=== PATIENT | male | born 1950 | race Two or more races ===

== ENCOUNTER → 2017-03-07 | Outpatient (REF) | payer OTHER, BC ==
[2017-03-07 18:14] LABS: ALBUMIN 4.2 GM/DL (3.2-5.2); ALBUMIN/GLOBULIN RATIO 1.2 (1.00-1.93); BILIRUBIN,TOTAL 0.5 MG/DL (0.2-1.0); CALCIUM LEVEL 8.9 MG/DL (8.8-10.2); CREATININE FOR GFR 1.81 MG/DL (0.70-1.30); GLOMERULAR FILTRATION RATE 40.4 (>49); POTASSIUM SERUM 4.6 MEQ/L (3.5-5.1); TOTAL PROTEIN 7.7 GM/DL (6.4-8.2)
[2017-03-07 18:17] LABS: BASO # 0.1 K/mm3 (0.0-0.2); BASO % 0.9 % (0.0-1.0); EOS # 0.3 K/mm3 (0.0-0.50); LARGE UNSTAINED CELL # 0.1 K/mm3 (0.0-0.4); LARGE UNSTAINED CELL % 1.5 % (0.0-4.0); LYMPH # 1.5 K/mm3 (1.5-4.5); LYMPH % 20.8 % (24.0-44.0); MEAN CORPUSCULAR HEMOGLOBIN 30.8 pg (27.0-33.0); MEAN CORPUSCULAR HGB CONC 32.8 g/dl (32.0-36.5); MEAN CORPUSCULAR VOLUME 93.9 fl (80.0-96.0); MONO # 0.5 K/mm3 (0.0-0.8); NEUTROPHILS # 4.6 K/mm3 (1.8-7.7); NEUTROPHILS % 65.8 % (36.0-66.0); PLATELET COUNT, AUTOMATED 276 k/mm3 (150-450); RED CELL DISTRIBUTION WIDTH 12.8 % (11.5-14.5)
== END ==
LOC: M LAB REF 16:43
PROVIDERS: ATTEND Family Medicine
DX: M54.6 Pain in thoracic spine (principal); E11.29 Type 2 diabetes mellitus with other diabetic kidney complication; M25.50 Pain in unspecified joint

== ENCOUNTER → 2018-03-25 | Outpatient (CLI) | payer OTHER, BC ==
[2018-03-25 20:23] LABS: BASO # 0.1 10^3/uL (0.0-0.2); BASO % 0.3 % (0.0-1.0); EOS % 0.2 % (0.0-3.0); HEMATOCRIT 36.5 % (42.0-52.0); LYMPH % 5.4 % (24.0-44.0); MEAN CORPUSCULAR HEMOGLOBIN 30.6 pg (27.0-33.0); MEAN CORPUSCULAR HGB CONC 32.9 g/dl (32.0-36.5); MEAN CORPUSCULAR VOLUME 93.1 fl (80.0-96.0); MONO # 1.3 10^3/uL (0.0-0.8); MONO % 6.8 % (0.0-5.0); NEUTROPHILS # 16.2 10^3/uL (1.8-7.7); NEUTROPHILS % 85.3 % (36.0-66.0); PLATELET COUNT, AUTOMATED 257 10^3/uL (150-450); RED BLOOD COUNT 3.92 10^6/uL (4.30-6.10); RED CELL DISTRIBUTION WIDTH 13.1 % (11.5-14.5)
[2018-03-25 20:47] LABS: ALBUMIN 3.4 GM/DL (3.2-5.2); ALBUMIN/GLOBULIN RATIO 0.94 (1.00-1.93); ALKALINE PHOSPHATASE 80 U/L (45-117); ALT/SGPT 19 U/L (12-78); ANION GAP 12 MEQ/L (8-16); AST/SGOT 15 U/L (7-37); BILIRUBIN,TOTAL 0.8 MG/DL (0.2-1.0); BLOOD UREA NITROGEN 48 MG/DL (7-18); CALCIUM LEVEL 8.3 MG/DL (8.8-10.2); CARBON DIOXIDE LEVEL 21 MEQ/L (21-32); CHLORIDE LEVEL 99 MEQ/L (98-107); CREATININE FOR GFR 2.29 MG/DL (0.70-1.30); GLOMERULAR FILTRATION RATE 30.7 (>49); GLUCOSE, FASTING 148 MG/DL (70-100); POTASSIUM SERUM 4.8 MEQ/L (3.5-5.1); SODIUM LEVEL 132 MEQ/L (136-145)
== END ==
LOC: M WUC 18:24
DX: R50.9 Fever, unspecified (principal)
CPT/HCPCS: 80053

== ENCOUNTER → 2018-03-26 | Outpatient (CLI) | payer OTHER, BC ==
[2018-03-26 13:21] LABS: BASO % 0.2 % (0.0-1.0); HEMATOCRIT 38.9 % (42.0-52.0); HEMOGLOBIN 12.9 g/dl (13.5-17.5); IMMATURE GRANULOCYTE % 0.7 % (0-3.0); LYMPH # 0.4 10^3/uL (1.5-4.5); LYMPH % 2.5 % (24.0-44.0); MEAN CORPUSCULAR HEMOGLOBIN 30.9 pg (27.0-33.0); MEAN CORPUSCULAR HGB CONC 33.2 g/dl (32.0-36.5); MEAN CORPUSCULAR VOLUME 93.3 fl (80.0-96.0); MONO # 0.6 10^3/uL (0.0-0.8); MONO % 4.2 % (0.0-5.0); NEUTROPHILS # 13.1 10^3/uL (1.8-7.7); NEUTROPHILS % 92.4 % (36.0-66.0); PLATELET COUNT, AUTOMATED 268 10^3/uL (150-450); RED BLOOD COUNT 4.17 10^6/uL (4.30-6.10); RED CELL DISTRIBUTION WIDTH 13.1 % (11.5-14.5); WHITE BLOOD COUNT 14.1 10^3/uL (4.0-10.0)
[2018-03-26 14:26] LABS: ALBUMIN/GLOBULIN RATIO 0.73 (1.00-1.93); ALKALINE PHOSPHATASE 79 U/L (45-117); ALT/SGPT 23 U/L (12-78); ANION GAP 13 MEQ/L (8-16); AST/SGOT 10 U/L (7-37); BILIRUBIN,TOTAL 0.4 MG/DL (0.2-1.0); BLOOD UREA NITROGEN 50 MG/DL (7-18); CALCIUM LEVEL 8.6 MG/DL (8.8-10.2); CARBON DIOXIDE LEVEL 19 MEQ/L (21-32); CHLORIDE LEVEL 100 MEQ/L (98-107); CREATININE FOR GFR 2.09 MG/DL (0.70-1.30); GLOMERULAR FILTRATION RATE 34.1 (>49); SODIUM LEVEL 132 MEQ/L (136-145); TOTAL PROTEIN 7.1 GM/DL (6.4-8.2)
[2018-03-26 14:29] LABS: GLUCOSE, FASTING 416 MG/DL (70-100)
[2018-03-26 14:33] LABS: POTASSIUM SERUM 5.6 MEQ/L (3.5-5.1)
== END ==
LOC: M WUC 11:36
DX: J18.9 Pneumonia, unspecified organism (principal)
CPT/HCPCS: 80053

== ENCOUNTER → 2018-12-14 | Outpatient (REF) | payer MEDICARE, OTHER ==
[~2018-12-14] MED LIST: ASPI81TA85 PO; GLIP10TA6 PO; LINZ145C; LISI10TA4 PO; METF-839 PO; SERT-138 PO; TRUL0.5I
[2018-12-14 19:08] LABS: CALCIUM LEVEL 9.1 MG/DL (8.8-10.2); CREATININE FOR GFR 1.87 MG/DL (0.70-1.30); GLOMERULAR FILTRATION RATE 38.6 (>49); POTASSIUM SERUM 4.6 MEQ/L (3.5-5.1)
== END ==
LOC: M LAB REF 17:03
PROVIDERS: ATTEND Family Medicine
DX: E11.29 Type 2 diabetes mellitus with other diabetic kidney complication (principal)

== ENCOUNTER 2019-03-18 08:52 | Day surgery (SDC) | payer MEDICARE, OTHER ==
[~2019-03-18] VITALS: Ht 182.9 cm; Wt 118.8 kg
[~2019-03-18 08:52] MED LIST changes: +LANTINJ4 SC; +LIDOCAINE 2% INJ 100 MG/5 ML SDV (FOR ANES.) As Ordered ONE; -LINZ145C; +LINZ145C PO; +PROPOFOL 200 MG/20 ML VIAL As Ordered ONE; -TRUL0.5I; +TRUL0.5I INJ
[2019-03-18] MEDS: NS 1,000 ML IV ONE (09:00)
[2019-03-18] MEDS ORDERED: PROPOFOL 200 MG/20 ML VIAL As Ordered ONE (09:54)
--- NOTE | 2019-03-18 10:02 | ROOR ---
Patient Name: Arjun Fong Procedure Date: 03/18/2019 9:45 AM Date of : 1950 Age: 68 Room: [facility] Gender: Male Note Status: Finalized Procedure: Colonoscopy Indications: High risk colon cancer surveillance: Personal history of colonic polyps Providers: Fly Rose Jr, MD Referring MD: Colelen Huang DO Requesting Provider: Medicines: Propofol per Anesthesia Complications: No immediate complications. Procedure: Pre-Anesthesia Assessment: - Prior to the procedure, a History and Physical was performed, and patient medications and allergies were reviewed. The patient is competent. The risks and benefits of the procedure and the sedation options and risks were discussed with the patient. All questions were answered and informed consent was obtained. Patient identification and proposed procedure were verified by the physician and the nurse in the pre-procedure area and in the procedure room. Mental Status Examination: alert and oriented. Airway Examination: normal oropharyngeal airway and neck mobility. Respiratory Examination: clear to auscultation. CV Examination: normal. ASA Grade Assessment: II - A patient with mild systemic disease. After reviewing the risks and benefits, the patient was deemed in satisfactory condition to undergo the procedure. The anesthesia plan was to use moderate sedation / analgesia (conscious sedation). Immediately prior to administration of medications, the patient was re-assessed for adequacy to receive sedatives. The heart rate, respiratory rate, oxygen saturations, blood pressure, adequacy of pulmonary ventilation, and response to care were monitored throughout the procedure. The physical status of the patient was re-assessed after the procedure. The Colonoscope was introduced through the anus and advanced to the cecum, identified by appendiceal orifice and ileocecal valve. The colonoscopy was performed without difficulty. The patient tolerated the procedure well. The quality of the bowel preparation was adequate. Findings: The rectum, recto-sigmoid colon, sigmoid colon, descending colon, transverse colon, ascending colon, cecum, appendiceal orifice and ileocecal valve appeared normal. Impression: - The rectum, recto-sigmoid colon, sigmoid colon, descending colon, transverse colon, ascending colon, cecum, appendiceal orifice and ileocecal valve are normal. - No specimens collected. Recommendation: - Discharge patient to home (ambulatory). - Repeat colonoscopy in 10 years for screening purposes. Fly Rose MD Fly Rose Jr, MD 03/18/2019 10:02:07 AM Electronically signed by Fly Rose Jr, MD Number of Addenda: 0 Note Initiated On: 03/18/2019 9:45 AM Estimated Blood Loss: Estimated blood loss: none.
[2019-03-18 10:06] VITALS: BP 111/67
== END 2019-03-18 10:35 | disposition home or self-care (01) ==
LOC: M OPP 08:52
PROVIDERS: ATTEND Surgery
DX: Z86.010 Personal history of colon polyps (principal); Z79.2 Long term (current) use of antibiotics; Z79.4 Long term (current) use of insulin; Z79.899 Other long term (current) drug therapy

== ENCOUNTER → 2019-10-25 | Outpatient (REF) | payer OTHER, MEDICARE ==
[~2019-10-25] MED LIST changes: -LIDOCAINE 2% INJ 100 MG/5 ML SDV (FOR ANES.) As Ordered ONE; -PROPOFOL 200 MG/20 ML VIAL As Ordered ONE
[2019-10-25 16:43] LABS: BASO % 0.5 % (0.0-1.0); EOS # 0.2 10^3/uL (0.0-0.5); EOS % 3.7 % (0.0-3.0); HEMATOCRIT 43.6 % (42.0-52.0); HEMOGLOBIN 14.3 g/dl (13.5-17.5); LYMPH # 1.2 10^3/uL (1.5-5.0); MEAN CORPUSCULAR HEMOGLOBIN 30.5 pg (27.0-33.0); MEAN CORPUSCULAR HGB CONC 32.8 g/dl (32.0-36.5); MONO # 0.5 10^3/uL (0.0-0.8); NEUTROPHILS % 67.5 % (36.0-66.0); PLATELET COUNT, AUTOMATED 287 10^3/uL (150-450); RED BLOOD COUNT 4.69 10^6/uL (4.30-6.10); WHITE BLOOD COUNT 5.9 10^3/uL (4.0-10.0)
[2019-10-25 17:17] LABS: ALBUMIN 4.2 GM/DL (3.2-5.2); BILIRUBIN,TOTAL 0.5 MG/DL (0.2-1.0); CALCIUM LEVEL 9.3 MG/DL (8.8-10.2); CHOLESTEROL RISK RATIO 5.217 (<5); CREATININE FOR GFR 1.81 MG/DL (0.70-1.30); TOTAL PROTEIN 7.8 GM/DL (6.4-8.2)
== END ==
LOC: M LAB REF 16:13
PROVIDERS: ATTEND Family Medicine
DX: N18.2 Chronic kidney disease, stage 2 (mild) (principal); E11.29 Type 2 diabetes mellitus with other diabetic kidney complication; E78.49 Other hyperlipidemia

== ENCOUNTER → 2020-03-31 | Outpatient (REF) | payer MEDICARE, OTHER ==
[~2020-03-31] MED LIST changes: -ASPI81TA85 PO; +ASPI81TA86 PO
[2020-04-29 02:10] LABS: BASO % 0.6 % (0.0-1.0); EOS # 0.2 10^3/uL (0.0-0.5); EOS % 3.1 % (0.0-3.0); HEMATOCRIT 44.1 % (42.0-52.0); HEMOGLOBIN 14.2 g/dl (13.5-17.5); LYMPH # 1.2 10^3/uL (1.5-5.0); LYMPH % 20.1 % (24.0-44.0); MEAN CORPUSCULAR HEMOGLOBIN 30.4 pg (27.0-33.0); MEAN CORPUSCULAR HGB CONC 32.2 g/dl (32.0-36.5); MEAN CORPUSCULAR VOLUME 94.4 fl (80.0-96.0); MONO # 0.5 10^3/uL (0.0-0.8); MONO % 7.8 % (0.0-5.0); NEUTROPHILS # 4.2 10^3/uL (1.5-8.5); NEUTROPHILS % 68.1 % (36.0-66.0); PLATELET COUNT, AUTOMATED 292 10^3/uL (150-450); RED BLOOD COUNT 4.67 10^6/uL (4.30-6.10); WHITE BLOOD COUNT 6.2 10^3/uL (4.0-10.0)
[2020-05-18 13:15] LABS: HEMOGLOBIN A1c 9.2 %
[2020-05-18 13:16] LABS: ALBUMIN 4.4 GM/DL (3.2-5.2); BILIRUBIN,TOTAL 0.5 MG/DL (0.2-1.0); CALCIUM LEVEL 9.1 MG/DL (8.8-10.2); CREATININE FOR GFR 1.92 MG/DL (0.70-1.30); FREE T4 0.96 NG/DL (0.76-1.46); GLOMERULAR FILTRATION RATE 37.4 (>49); POTASSIUM SERUM 5.6 MEQ/L (3.5-5.1); THYROID STIMULATING HORMONE 2.27 uIU/ML (0.358-3.740); TOTAL PROTEIN 7.7 GM/DL (6.4-8.2)
== END ==
LOC: M LABWUC 10:33
PROVIDERS: ATTEND Physician Assistant
DX: M79.10 Myalgia, unspecified site (principal); Z79.4 Long term (current) use of insulin

== ENCOUNTER 2020-08-08 22:53 | Inpatient (IN) | payer MEDICARE, OTHER ==
[~2020-08-08] VITALS: Ht 182.9 cm; Wt 119.0 kg
[2020-08-08] MEDS ORDERED: ATOR1TAB19 PO (23:15)
[2020-08-09] MEDS ORDERED: COMBIVENT RESPIMAT 100-20MCG INHALER 4GM INH ONE
[2020-08-09] MEDS ORDERED: PANTOPRAZOLE 40MG VIAL (C9113 PER 1) IV ONE
[2020-08-09] MEDS ORDERED: GI COCKTAIL 50ML BTL(HYOSCYAMINE/MAALOX/LIDOCAINE VISCOUS)(1:3:1) PO ONE
[2020-08-09 00:05] LABS: BASO % 0.1 % (0.0-1.0); EOS % 0.1 % (0.0-3.0); HEMATOCRIT 45.5 % (42.0-52.0); HEMOGLOBIN 15.1 g/dl (13.5-17.5); LYMPH # 1.3 10^3/uL (1.5-5.0); LYMPH % 13.7 % (24.0-44.0); MEAN CORPUSCULAR HEMOGLOBIN 30.9 pg (27.0-33.0); MEAN CORPUSCULAR HGB CONC 33.2 g/dl (32.0-36.5); MEAN CORPUSCULAR VOLUME 93.2 fl (80.0-96.0); MONO # 0.2 10^3/uL (0.0-0.8); MONO % 1.8 % (0.0-5.0); NEUTROPHILS # 8.1 10^3/uL (1.5-8.5); NEUTROPHILS % 83.3 % (36.0-66.0); PLATELET COUNT, AUTOMATED 299 10^3/uL (150-450); RED BLOOD COUNT 4.88 10^6/uL (4.30-6.10); WHITE BLOOD COUNT 9.7 10^3/uL (4.0-10.0)
[2020-08-09 00:12] LABS: PROTHROMBIN TIME 13.4 SECONDS (12.5-14.3)
[2020-08-09 00:14] LABS: D-DIMER QUANT 1094.51 ng/ml (<500)
[2020-08-09 00:37] LABS: ALBUMIN 3.9 GM/DL (3.2-5.2); ALT/SGPT 255 U/L (12-78); BILIRUBIN,TOTAL 1.5 MG/DL (0.2-1.0); BLOOD UREA NITROGEN 49 MG/DL (7-18); CALCIUM LEVEL 9.6 MG/DL (8.8-10.2); CARBON DIOXIDE LEVEL 29 MEQ/L (21-32); CHLORIDE LEVEL 101 MEQ/L (98-107); CK-MB VALUE MASS 7.4 NG/ML (<3.6); CPK CREATINE PHOSPHOKINASE 194 U/L (39-308); CREATININE FOR GFR 2.15 MG/DL (0.70-1.30); GLOMERULAR FILTRATION RATE 32.7 (>49); GLUCOSE, FASTING 289 MG/DL (70-100); MB/CK RELATIVE INDEX 3.81 (< OR =4); NT-PRO BNP 121 PG/ML (<125); POTASSIUM SERUM 4.6 MEQ/L (3.5-5.1); SODIUM LEVEL 136 MEQ/L (136-145); TOTAL PROTEIN 7.3 GM/DL (6.4-8.2); TROPONIN I < 0.02 NG/ML (< 0.10)
[2020-08-09] MEDS ORDERED: MORPHINE 4 MG/ML 1ML VIAL/SYRINGE (J2270) IV ONE (01:00)
[2020-08-09] MEDS ORDERED: ONDANSETRON 4MG/2ML VIAL IV ONE (01:15)
[2020-08-09 01:23] LABS: LIPASE 12564 U/L (73-393)
--- NOTE | 2020-08-09 02:33 | REPVR ---
PROCEDURE INFORMATION: Exam: CT Chest Without Contrast; Diagnostic Exam date and time: 08/09/2020 1:08 AM Age: 70 years old Clinical indication: Shortness of breath; Additional info: SOB TECHNIQUE: Imaging protocol: Diagnostic computed tomography of the chest without contrast. Radiation optimization: All CT scans at this facility use at least one of these dose optimization techniques: automated exposure control; mA and/or kV adjustment per patient size (includes targeted exams where dose is matched to clinical indication); or iterative reconstruction. COMPARISON: CR CHEST 2 VIEW 03/25/2018 6:32 PM FINDINGS: Lungs: Bilateral dependent and linear atelectasis. Calcified granulomata in the right lower and middle lobes. Pleural space: Unremarkable. No pneumothorax. No pleural effusion. Heart: Coarsely calcified aortic valve leaflets. Atherosclerotic disease of coronary arteries. Mediastinal space: Small hiatal hernia. Aorta: Atherosclerotic disease of the thoracic aorta. Lymph nodes: Unremarkable. No enlarged lymph nodes. Bones/joints: Multilevel degenerative disease of the thoracic spine. Osteopenia. Mild scoliosis. IMPRESSION: Evidence of prior granulomatous disease. Hiatal hernia. Electronically signed by: Fermín Vargas On 08/09/2020 02:33:05 AM
--- NOTE | 2020-08-09 02:38 | REPVR ---
PROCEDURE INFORMATION: Exam: CT Abdomen And Pelvis Without Contrast Exam date and time: 08/09/2020 1:08 AM Age: 70 years old Clinical indication: Abdominal pain; Epigastric; Additional info: Upper abd pain elev lfts TECHNIQUE: Imaging protocol: Computed tomography of the abdomen and pelvis without contrast. Radiation optimization: All CT scans at this facility use at least one of these dose optimization techniques: automated exposure control; mA and/or kV adjustment per patient size (includes targeted exams where dose is matched to clinical indication); or iterative reconstruction. COMPARISON: No relevant prior studies available. FINDINGS: Liver: Hepatomegaly. Geographic steatosis predominately involving right hepatic lobe. Gallbladder and bile ducts: Cholelithiasis. No specific evidence of acute cholecystitis. Pancreas: Inflammatory changes involving pancreatic head and neck with stranding of the adjacent fat consistent with acute pancreatitis. Spleen: Normal. No splenomegaly. Adrenal glands: Normal. No mass. Kidneys and ureters: Simple exophytic right renal cyst. Stomach and bowel: Diverticulosis of colon. No evidence of acute diverticulitis. Mild inflammatory changes involving epiploic appendage in the left lower quadrant. Correlate for point tenderness. Appendix: No evidence of appendicitis. Intraperitoneal space: Unremarkable. No free air. No significant fluid collection. Vasculature: Unremarkable. No abdominal aortic aneurysm. Lymph nodes: Unremarkable. No enlarged lymph nodes. Urinary bladder: Unremarkable as visualized. Reproductive: Unremarkable as visualized. Bones/joints: Severe degenerative changes in the bilateral sacroiliac joints. Multilevel degenerative disease facet hypertrophy of the lumbar spine. Chronic appearing fracture deformity L1. Soft tissues: Fat containing left inguinal hernia. IMPRESSION: Acute pancreatitis. Cholelithiasis. No specific evidence of acute cholecystitis. Hepatomegaly. Geographic steatosis predominately involving right hepatic lobe. Diverticulosis of colon. No evidence of acute diverticulitis. Mild inflammatory changes involving epiploic appendage in the left lower quadrant. Correlate for point tenderness. COMMENTS: Consistent with the [employer]'s Incidental Findings Committee white paper (J Am Princess Radiol 2018): Any incidental renal lesion less than 1 cm or classified as too small to characterize, or any incidental cystic renal lesion characterized as simple-appearing, is likely benign. No follow-up imaging is recommended for these lesions per consensus recommendations based on imaging criteria. Electronically signed by: Fermín Vargas On 08/09/2020 02:37:39 AM
[2020-08-09] MEDS ORDERED: TRUL0.5I SC (03:02)
[2020-08-09] MEDS ORDERED: METF-839 PO (03:02)
[2020-08-09] MEDS ORDERED: ATOR1TAB19 PO (03:02)
[2020-08-09] MEDS ORDERED: ECOT81TA5 PO (03:02)
[2020-08-09] MEDS ORDERED: NS 1,000 ML IV SCH (03:10)
[2020-08-09] MEDS ORDERED: DEXTROSE 50% 50 ML SYRINGE IV PRN (04:30)
[2020-08-09] MEDS ORDERED: ONDANSETRON 4MG/2ML VIAL IV PRN (04:30)
[2020-08-09] MEDS ORDERED: GLUCOSE 4GM CHEW TABLET PO PRN (04:30)
[2020-08-09] MEDS ORDERED: GLUCAGON INJ 1MG VIAL SC PRN (04:30)
[2020-08-09 04:56] VITALS: BP 149/75
[2020-08-09] MEDS: NS 1,000 ML IV SCH ×5 (05:17→23:22)
--- NOTE | 2020-08-09 05:38 | HPEPDOC ---
[facility] Medical History & Physical Date of Admission Aug 09, 2020 Date of Service: Aug 09, 2020 Primary Care Physician: Colleen Huang Attending Physician: Souleymane Cordova MD History and Physical CHIEF COMPLAINT: shortness of breath, abdominal pain HISTORY OF PRESENT ILLNESS: Arjun Fong is a 70 YO M with history of diabetes type 2, hyperlipidemia, hypertension who presents to the ED this evening with several hours shortness of breath and abdominal pain. The patient reports his pain had sudden onset around 1800 after eating pizza from a restaurant. He states it feels as though he has "really bad acid reflux." He states he is unable to take deep breaths, but denies any coughing or dyspnea on exertion. One week ago, he started having abdominal discomfort and nausea/vomi ting after eating out at a restaurant. Initially the pain resolved but this evening it has returned and is more severe. He denies any recent fevers, chills, diarrhea. He has had no recent travel and no sick contacts. PAST MEDICAL HISTORY: 1. T2DM 2. HLD 3. DJD spine 4. Anxiety disorder 5. HTN PAST SURGICAL HISTORY: 1. R foot surgery 2. Nasal septoplasty 3. Back surgery 4. Umbilical hernia repair SOCIAL HISTORY: Former smoker, quit >10 years ago Denies EtOH Former heavy marijuana smoker, denies any current use FAMILY HISTORY: Reviewed and noncontributory ALLERGIES: Please see below. REVIEW OF SYSTEMS: Constitutional: No Weight Change, No Fever, No Chills, No Night Sweats, No Fatigue, No Malaise ENT/Mouth: No Hearing Changes, No Ear Pain, No Nasal Congestion, No Sinus Pain, No Hoarseness, No sore throat, No Rhinorrhea, No Swallowing Difficulty Eyes: No Eye Pain, No Swelling, No Redness, No Foreign Body, No Discharge, No Vision Changes Cardiovascular: No Chest Pain, No SOB, No PND, No Dyspnea on Exertion, No Orthopnea, No Claudication, No Edema, No Palpitations Respiratory: Reports difficulty taking deep breaths, no dyspnea Gastrointestinal: Reports nausea, vomiting, severe epigastric abdominal pain 1 week Genitourinary: No Dysuria Musculoskeletal: No Arthralgias, No Myalgias, No Joint Swelling, No Joint Stiffness, No Back Pain, No Neck Pain Skin: No Skin Lesions Neuro: No Weakness, No Numbness, No Paresthesias, No Loss of Consciousness, No Syncope, No Dizziness, No Headache Psych: No Anxiety/Panic, No Depression, No Insomnia, No Personality Changes, No Delusions Heme/Lymph: No Bruising, No Bleeding, No Transfusions History, No Lymphadenopathy Endocrine: No Polyuria, No Polydipsia, No Temperature Intolerance HOME MEDICATIONS: Please see below. PHYSICAL EXAMINATION: VITAL SIGNS: see below GENERAL: Morbidly obese,alert and oriented, in no apparent distress, pleasant and conversant in full sentences. HEENT: PERRL, EOMI, Oral mucous membranes are moist without lesions. NECK: The patient has no noted JVD. No adenopathy is appreciated. No thyromegaly CHEST/LUNGS: Lungs are clear bilaterally without rhonchi, rales, or wheezes. There is no subcutaneous air appreciated. There is no tenderness to the chest wall. HEART:Regular rate and rhythm. There is a 3/6 systolic ejection murmur heard best in the right upper sternal border radiating to the apex. Distal pulses are 2+. No carotid bruits appreciated. ABDOMEN: Obese, The patient is tender to palpation in the right upper quadrant and epigastric region. Positive bowel sounds. No obvious masses or organomegaly. EXTREMITIES: No peripheral edema. There is no focal long bone tenderness or deformity. SKIN: The patients skin is warm and dry, without rashes or lesions. PSYCHIATRIC: AAO x 3, normal mood/affect NEUROLOGIC: No obvious focal deficits LABORATORY DATA: See below. IMAGING: CT CHEST: FINDINGS: Lungs: Bilateral dependent and linear atelectasis. Calcified granulomata in the right lower and middle lobes. Pleural space: Unremarkable. No pneumothorax. No pleural effusion. Heart: Coarsely calcified aortic valve leaflets. Atherosclerotic disease of coronary arteries. Mediastinal space: Small hiatal hernia. Aorta: Atherosclerotic disease of the thoracic aorta. Lymph nodes: Unremarkable. No enlarged lymph nodes. Bones/joints: Multilevel degenerative disease of the thoracic spine. Osteopenia. Mild scoliosis. IMPRESSION: Evidence of prior granulomatous disease. Hiatal hernia. CT ABD/PEL: IMPRESSION: Acute pancreatitis. Cholelithiasis. No specific evidence of acute cholecystitis. Hepatomegaly. Geographic steatosis predominately involving right hepatic lobe. Diverticulosis of colon. No evidence of acute diverticulitis. Mild inflammatory changes involving epiploic appendage in the left lower quadrant. Correlate for point tenderness. MICROBIOLOGY: Please see below. ASSESSMENT: This is a 70-year-old male with history of type 2 diabetes, hyperlipidemia, hypertension who presents with severe epigastric abdominal pain and shortness of breath found to have elevated lipase and CT findings concerning for acute pancreatitis. PLAN: 1. Acute pancreatitis: likely 2/2 most likely Trulicity use vs hypertriglyceridemia vs EtOH -EtOH level pending, Lipid panel pending -Lipase elevated at 12,564 -NS IV fluids 150cc/hr -NPO for now -Morphine 4mg IV Q4H for pain -IV Zofran for nausea (QTc 407) 2. Shortness of breath: Likely secondary to diaphragmatic irritation from pancreatitis -Patient is saturating well on room air -Chest CT not concerning for any acute process -Elevated d-dimer, initial concern in ED was pulmonary embolism -PERC rule, 3 technically PE cannot be ruled out. Wells score 1.5 points (low risk). Unable to do CTA due to renal function -Patient's SOB resolved with fluids/pain medication. Will defer decision to get V/Q scan to day team, although PE not likely 3. DM2: -Holding home meds. Would not recommend continuing Trulicity at discharge -Levemir 16U daily -SSI with hypoglycemic protocol for now, Q6H coverage -Continue ASA 4. HTN: -Continue Lisinopril 5. Elevated TSH: found to be 10.0 -patient has no history of thyroid dysfunction -free T4 pending 6. Anxiety: -Continue Sertraline 7. Chronic constipation: -Holding home Linzess for now 8. HLD: -Continue Atorvastatin DVT ppx: TEDs/SCDs DISPO:pending clinical improvement Vital Signs Vital Signs Date Time Temp Pulse Resp B/P (MAP) Pulse Ox O2 Delivery O2 Flow Rate FiO2 08/09/20 04:45 138/67 (90) 08/09/20 04:40 98 16 95 Nasal Cannula 2.0 08/08/20 22:54 96.6 Laboratory Data Labs 24H Laboratory Tests 2 08/08/20 23:49: Immature Granulocyte % (Auto) 1.0, Neutrophils (%) (Auto) 83.3H, Lymphocytes (%) (Auto) 13.7L, Monocytes (%) (Auto) 1.8, Eosinophils (%) (Auto) 0.1, Basophils (%) (Auto) 0.1, Neutrophils # (Auto) 8.1, Lymphocytes # (Auto) 1.3L, Monocytes # (Auto) 0.2, Eosinophils # (Auto) 0.0, Basophils # (Auto) 0.0, Nucleated Red Blood Cells % (auto) 0.0, Prothrombin Time 13.4, Prothromb Time International Ratio 1.00, D-Dimer, Quantitative 1094.51H, Anion Gap 6L, Glomerular Filtration Rate 32.7L, Calcium Level 9.6, Total Bilirubin 1.5H, Direct Bilirubin 1.0H, Aspartate Amino Transf (AST/SGOT) 461H, Alanine Aminotransferase (ALT/SGPT) 25 5H, Alkaline Phosphatase 120H, Total Creatine Kinase 194, Creatine Kinase MB 7.4H, Creatine Kinase MB Relative Index 3.81, Troponin I < 0.02, SN-Oax-O-Type Natriuretic Peptide 121, Total Protein 7.3, Albumin 3.9, Albumin/Globulin Ratio 1.1, Lipase 54582K, Thyroid Stimulating Hormone (TSH) 10.000H 08/09/20 01:11: Coronavirus (COVID-19)(PCR) NEGATIVE, Influenza Type A (RT-PCR) NEGATIVE, Influenza Type B (RT-PCR) NEGATIVE, Respiratory Syncytial Virus (PCR) NEGATIVE CBC/BMP Laboratory Tests 08/08/20 23:49 Home Medications Scheduled Aspirin (Ecotrin) 81 Mg Tablet.dr, 81 MG PO QHS Atorvastatin Calcium (Atorvastatin Calcium) 10 Mg Tablet, 10 MG PO QHS Dulaglutide (Trulicity) 1.5 Mg/0.5 Ml Pen.injctr, 1.5 MG SC 1XWK WEDNESDAYS Insulin Glargine,Hum.rec.anlog (Lantus Solostar) 100 Unit/1 Ml Insuln.pen, 16 UNITS SC QHS Lisinopril (Lisinopril) 10 Mg Tab, 10 MG PO QHS Metformin HCl (Metformin HCl) 500 Mg Tab, 500 MG PO QHS Metformin HCl (Metformin HCl) 500 Mg Tablet, 1,000 MG PO DAILY Sertraline HCl (Sertraline HCl) 100 Mg Tab, 100 MG PO QHS Scheduled PRN Linaclotide (Linzess) 145 Mcg Cap, 145 MG PO DAILY PRN for CONSTIPATION Allergies Coded Allergies: No Known Allergies (Unverified , 03/11/19) A-FIB/CHADSVASC A-FIB History Current/History of A-Fib/PAF?: No Current PO Anticoag Therapy: No GME ATTESTATION ATTENDING NOTE Family Medicine Attending Note: I was present on site to supervise Pooja Murillo DO (PGY-3). We discussed the history and exam. I confirmed the carlisle elements during my eimg-sn-pios encounter with the patient. We conferred on the assessment and plan; I agree with the note as documented. Specifically I think the pancreatitis is likely due to his Trulicity. We are ruling out other causes before we discharge him off this medication, but that is what I think will eventually happen. (station detective) POOJA MURILLO MD Aug 09, 2020 05:38 Souleymane Cordova MD Aug 10, 2020 04:30
[2020-08-09] MEDS ORDERED: MORPHINE 4 MG/ML 1ML VIAL/SYRINGE (J2270) IV PRN (05:45)
[2020-08-09] MEDS: HumaLOG INSULIN (NovoLOG) PER UNIT SC SCH ×3 (06:02→18:13)
[2020-08-09 07:21] LABS: CHOLESTEROL LEVEL 143 MG/DL (<200); CHOLESTEROL RISK RATIO 3.487 (<5); ETHYL ALCOHOL (ETHANOL) < 0.003 % (0.000-0.010); FREE T4 1.16 NG/DL (0.76-1.46); HDL CHOLESTEROL 41 MG/DL (>40); LDL CHOLESTEROL 44 MG/DL (<100); NON-HDL-C 102 MG/DL; TRIGLYCERIDES LEVEL 291 MG/DL (<150)
--- NOTE | 2020-08-09 07:23 | IPNPDOC ---
Text Note Date of Service The patient was seen on 08/09/20. VS,Fishbone, I+O VS, Fishbone, I+O Laboratory Tests 08/08/20 23:49 Vital Signs Date Time Temp Pulse Resp B/P (MAP) Pulse Ox O2 Delivery O2 Flow Rate FiO2 08/09/20 06:32 18 08/09/20 06:10 96 Nasal Cannula 1.0 08/09/20 04:56 98.7 102 149/75 (99) I&O- Last 24 Hours up to 6 AM 08/09/20 06:00 Intake Total 0 ml Output Total 0 ml Balance 0 ml GME ATTESTATION GME ATTESTATION My faculty preceptor for this patient encounter was physically present during the encounter and was fully available. All aspects of the patient interview, examination, medical decision making process, and medical care plan development were reviewed and approved by the faculty preceptor. The faculty preceptor is aware and concurs with the plan as stated in the body of this note and will attest to such by his/her cosignature. ROSE VALENTINE DO Aug 09, 2020 07:23
[2020-08-09] MEDS ORDERED: HumaLOG INSULIN (NovoLOG) PER UNIT SC SCH ×2 (07:30→21:00)
--- NOTE | 2020-08-09 08:46 | ECGEPIP ---
[facility] - ED Test Date: 2020-08-09 Pat Name: ESTRELLA MENDOZA Department: Room: [place] [address] Gender: Male [employer] Tender: shannon : 1950 Requested By: MALIHA Do Order Number: [id number] Reading MD: Eduardo Irizarry Measurements Intervals [place] Rate: 87 P: 71 SC: 153 QRS: -78 QRSD: 97 T: 63 QT: 363 QTc: 437 Interpretive Statements SINUS RHYTHM MARKED LEFT AXIS DEVIATION Nonspecific ST-T wave abnormalities Baseline artifact Limb lead voltage normalized when compared to tracing done 04-20-16 Electronically Signed on 08-09-2020 8:46:11 EST by Eduardo Irizarry
[2020-08-09] MEDS ORDERED: PREVNAR 13 VACCINE SYRINGE IM ONE (09:00)
[2020-08-09] MEDS ORDERED: FLUBLOK(EGG FREE)(QUAD)INFLUENZA VACC 0.5ML SYRINGE 18YRS & OLDER IM ONE (09:00)
--- NOTE | 2020-08-09 09:02 | REP ---
INDICATION: pancreatitis - eval gallstones. COMPARISON: Abdomen and pelvis CT without IV or bowel contrast dated 08/09/2020 at 2:03 a.m.. TECHNIQUE: Multiple real-time ultrasonographic images of the abdominal right upper quadrant. FINDINGS: There are multiple small calculi in the gallbladder neck. These were also identified on the comparison CT. There is no gallbladder wall thickening or pericholecystic fluid to suggest acute cholecystitis. There is no intrahepatic or extrahepatic biliary duct dilatation. The common biliary duct measures 5.3 mm in diameter. The hepatic parenchyma is echogenic compatible with hepatosteatosis. No hepatic masses or cysts are identified. The pancreas is obscured by bowel gas. On the comparison CT there are peripancreatic inflammatory changes. The right kidney is normal size measuring 16.0 x 4.6 x 4.5 cm. There is no right renal calculus or hydronephrosis. There is a right renal upper pole cyst, also identified by CT measuring 3.4 cm in diameter. There is no right upper quadrant abdominal free fluid. IMPRESSION: Small gallbladder calculi without evidence of cholecystitis or biliary duct dilatation. Pancreas is obscured by bowel gas. There is peripancreatic inflammation on the comparison CT. Right renal upper pole cyst similar to the comparison CT. No right upper quadrant abdominal free fluid. <Electronically signed by Hernesto Dennis > 08/09/20 [id number]
[2020-08-09 09:10] LABS: HEMOGLOBIN A1c 9.3 %
[2020-08-09] MEDS ORDERED: NS 1,000 ML IV ONE ×2 (10:15→17:00)
--- NOTE | 2020-08-09 11:36 | IPNPDOC ---
Text Note Date of Service The patient was seen on 08/09/20. NOTE SUBJECTIVE: Mr. Fong was seen and examined at bedside this morning. He reports continual pain in mid-epigastric region and extremely thirsty. He reports that his breathing has improved since coming to the hospital which was suspected diaphragm irritation from pancreatitis. Pt denies chest pain, SOB, dizziness, fevers and chills. Pt was informed of plan moving forward of increased IV fluids and pain management until symptoms improve and he can tolerate a normal diet. OBJECTIVE: VITAL SIGNS: Please see below. CONSTITUTIONAL: Pt is lying in bed, uncomfortable due to abdominal pain. No respiratory distress. HEENT: PERRL. EOM intact. No lymphadenopathy noted. CV: S1S2 present. RRR. No murmurs, rubs or gallops. RESPIRATORY: Clear auscultation in all lung ann. No wheezing, rales or rhonchi appreciated. ABDOMEN: Tender to palpation in mid epigastric region. Bowel sounds normoactive in all 4 quadrants. EXTREMITIES: No edema noted. Pulses 2+ equal and bilateral. NEUROLOGICAL: AAOx3. No obvious focal neurologic deficits. Strength 5/5 in bilateral upper and lower extremities. PSYCHIATRIC: Normal mood and affect IMAGING: Chest CT (08/09/20): Abdomen/pelvis CT (08/09/20): Acute pancreatitis. Cholelithiasis. No specific evidence of acute cholecystitis. Hepatomegaly. Geographic steatosis predomin antly involving the right hepatic lobe. Diverticulosis of the colon. No evidence of acute diverticulitis. Mild inflammatory changes involving epiploic appendage in the left lower quadrant. Liver US (08/09/20): Small gallbladder calculi without evidence of cholecystitis or biliary duct dilatation. Pancreas is obscured by bowel gas. There is peripancreatic inflammation on the comparison CT. Right renal upper pole cyst similar to the comparison CT. No right upper quadrant abdominal free fluid ASSESSMENT: Mr. Fong is a 70 y/o male with PMH of DM2, HLD and HTN who presents with worsening abdominal pain and shortness of breath. Pt was found to have an elevated lipase and a CT abdomen concerning for acute pancreatitis. Pt is admitted for IV fluids and pain management. PLAN: #Acute pancreatitis, suspect secondary to Trulicity -Patient does carry a history of heavy alcohol use though, he reports, he has not had any since 1984. Alcohol screen was negative at admission. Liver ultrasound performed this morning did not show any evidence of cholecystitis and choledocholithiasis -Lipase elevated at 12,564. CT findings consistent with acute pancreatitis. -Lipid panel shows moderately elevated hypertriglyceridemia with a level of 291. Unlikely cause. -Continue to suspect the patient's Trulicity as leading etiology. Pt has been taking it for 4 years. -Previous week history of abdominal pain may also become potato by possible epiploic appendage this suggested by the CT scan. -NS fluids increased 250 cc/hr and 1 bolus IV NS given. -NPO for now. Given some ice chips for thirst. -Morphine 4 mg IV Q4H for pain. -IV Zofran for nausea. (QTc 407) #Shortness of breath, suspect diaphragmatic irritation from pancreatitis -Patient is saturating well on room air and reports resolved SOB this morning with fluids/pain medication. PE considered to be unlikely at this point. Patient is no longer tachycardic. -Chest CT not concerning for any acute process #DM2: -Holding home meds. Would not recommend continuing Trulicity at discharge -Levemir 16U daily -SSI with hypoglycemic protocol for now, Q6H coverage -Continue ASA #HTN: -Continue Lisinopril 10 mg PO daily #Elevated TSH -TSH level found to be 10.0. Free T4 was normal 1.16. -patient has no history of thyroid dysfunction -Recommend PCP follow-up #Anxiety: -Continue Sertraline 100 mg PO daily #Chronic constipation: -Holding home medications for now #HLD: -Continue Atorvastatin DVT PROPHYLAXIS: Teds and sequentials DISPOSITION: Pending clinical improvement. VS,Fishbone, I+O VS, Fishbone, I+O Laboratory Tests 08/08/20 23:49 Vital Signs Date Time Temp Pulse Resp B/P (MAP) Pulse Ox O2 Delivery O2 Flow Rate FiO2 08/09/20 06:32 18 08/09/20 06:10 96 Nasal Cannula 1.0 08/09/20 04:56 98.7 102 149/75 (99) I&O- Last 24 Hours up to 6 AM 08/09/20 06:00 Intake Total 0 ml Output Total 0 ml Balance 0 ml ROSE VALENTINE DO Aug 09, 2020 11:36
[2020-08-09 14:00] VITALS: BP 148/81
[2020-08-09] MEDS ORDERED: ACETAMINOPHEN TAB 650MG DOSE (2X325MG) PO PRN (14:15)
[2020-08-09] MEDS ORDERED: ACETAMINOPHEN 325 MG TAB PO ONE (15:00)
[2020-08-09 16:17] LABS: BASO % 0.2 % (0.0-1.0); EOS % 0.1 % (0.0-3.0); HEMATOCRIT 43.9 % (42.0-52.0); HEMOGLOBIN 14.2 g/dl (13.5-17.5); LYMPH # 0.2 10^3/uL (1.5-5.0); LYMPH % 1.6 % (24.0-44.0); MEAN CORPUSCULAR HGB CONC 32.3 g/dl (32.0-36.5); MEAN CORPUSCULAR VOLUME 92.8 fl (80.0-96.0); MONO # 0.4 10^3/uL (0.0-0.8); MONO % 3.3 % (0.0-5.0); NEUTROPHILS # 12.4 10^3/uL (1.5-8.5); NEUTROPHILS % 94.1 % (36.0-66.0); PLATELET COUNT, AUTOMATED 217 10^3/uL (150-450); RED BLOOD COUNT 4.73 10^6/uL (4.30-6.10); WHITE BLOOD COUNT 13.2 10^3/uL (4.0-10.0)
[2020-08-09 16:47] LABS: ALBUMIN 3.5 GM/DL (3.2-5.2); BILIRUBIN,TOTAL 4.5 MG/DL (0.2-1.0); CALCIUM LEVEL 8.3 MG/DL (8.8-10.2); CREATININE FOR GFR 2.3 MG/DL (0.70-1.30); GLOMERULAR FILTRATION RATE 30.3 (>49); POTASSIUM SERUM 5.1 MEQ/L (3.5-5.1); TOTAL PROTEIN 6.5 GM/DL (6.4-8.2)
[2020-08-09] MEDS: PIPERACILLIN/TAZOBACTAM SOD 3.375 GM in D5W MINI-BAG PLUS 50 ML IV SCH (18:13)
[2020-08-09] MEDS: ATORVASTATIN 10 MG TAB PO SCH (20:36)
[2020-08-09] MEDS: ASPIRIN 81 MG ENTERIC TAB PO SCH (20:36)
[2020-08-09] MEDS: lisinopriL 10 MG TAB PO SCH (20:37)
[2020-08-09] MEDS: SERTRALINE 100 MG TAB PO SCH (20:37)
[2020-08-09] MEDS: LEVEMIR (INSULIN DETEMIR) 1 UNITS/0.01ML SC SCH (20:44)
[2020-08-09 22:00] VITALS: BP 149/83
[2020-08-10] MEDS: PIPERACILLIN/TAZOBACTAM SOD 3.375 GM in D5W MINI-BAG PLUS 50 ML IV SCH ×4 (00:34→18:15)
[2020-08-10] MEDS: HumaLOG INSULIN (NovoLOG) PER UNIT SC SCH ×4 (00:35→18:15)
[2020-08-10] MEDS ORDERED: NS 1,000 ML IV ONE (03:30)
[2020-08-10] MEDS: NS 1,000 ML IV SCH ×2 (05:24→08:24)
[2020-08-10 06:00] VITALS: BP 141/75
[2020-08-10 06:43] LABS: HEMOGLOBIN 13.1 g/dl (13.5-17.5); MEAN CORPUSCULAR HGB CONC 33.6 g/dl (32.0-36.5); MEAN CORPUSCULAR VOLUME 92.4 fl (80.0-96.0); PLATELET COUNT, AUTOMATED 177 10^3/uL (150-450); RED BLOOD COUNT 4.22 10^6/uL (4.30-6.10); WHITE BLOOD COUNT 8.9 10^3/uL (4.0-10.0)
--- NOTE | 2020-08-10 07:04 | IPNPDOC ---
Text Note Date of Service The patient was seen on 08/10/20. NOTE SUBJECTIVE: Mr. Fong was seen and examined at bedside this morning. Yesterday afternoon, he spiked a fever and had elevated WBC, AST/ALT and lactic acid. He was given an additional 3 boluses of NS and started on antibiotics. He reports improvement of pain in mid-epigastric region but still thirsty. He reports that his shortness of breath has resolved since coming to the hospital which was suspected diaphragm irritation from pancreatitis. Pt denies chest pain, SOB, dizziness, fevers and chills. OBJECTIVE: VITAL SIGNS: Please see below. CONSTITUTIONAL: Pt is comfortably lying in bed. No respiratory distress noted. HEENT: PERRL. EOM intact. No lymphadenopathy noted. CV: S1S2 present. RRR. No murmurs, rubs or gallops. RESPIRATORY: Clear auscultation in all lung ann. No wheezing, rales or rhonchi appreciated. ABDOMEN: Soft, nontender, nondistended abdomen. Bowel sounds normoactive in all 4 quadrants. EXTREMITIES: No edema noted. Pulses 2+ equal and bilateral. NEUROLOGICAL: AAOx3. No obvious focal neurologic deficits. Strength 5/5 in bilateral upper and lower extremities. PSYCHIATRIC: Normal mood and affect IMAGING: Chest CT (08/09/20): Abdomen/pelvis CT (08/09/20): Acute pancreatitis. Cholelithiasis. No specific evidence of acute cholecystitis. Hepatomegaly. Geographic steatosis pred ominantly involving the right hepatic lobe. Diverticulosis of the colon. No evidence of acute diverticulitis. Mild inflammatory changes involving epiploic appendage in the left lower quadrant. Liver US (08/09/20): Small gallbladder calculi without evidence of cholecystitis or biliary duct dilatation. Pancreas is obscured by bowel gas. There is peripancreatic inflammation on the comparison CT. Right renal upper pole cyst similar to the comparison CT. No right upper quadrant abdominal free fluid ASSESSMENT: Mr. Fong is a 70 y/o male with PMH of DM2, HLD and HTN who presents with worsening abdominal pain and shortness of breath. Pt was found to have an elevated lipase and a CT abdomen concerning for acute pancreatitis. Pt is admitted for IV fluids and pain management. Yesterday afternoon at 2 pm, pt spiked a fever of 101.9 and was found to have an elevated WBC of 13.2, elevated lactic acid of 2.9, elevated AST/ALT of 610/805 and elevated total bilirubin of 4.5. Pt was given an additional 3 boluses of NS since this time and started on IV Zosyn 3.375 gm Q6H. This morning, patient is doing much better. Pt is afebrile, WBC improved to 8.9, lactic acid improved to 1.1, and AST/ALT improved to 195/460. Total bilirubin remains high at 4.5. Blood cultures preliminary grew gram negative rods. Pending MRI w/o contrast, pancreatic tumor markers, repeat blood culture, and hepatitis panel. PLAN: #Sepsis secondary to acute pancreatitis -Preliminary blood cultures grew gram negative rods. Pending final results. -Pt spiked fever of 101.9. Since resolved. -Elevated WBC of 13.2. Since resolved to level of 8.9. -Elevated lactic acid of 2.9. Since resolved to 1.1. -Elevated AST/ALT of 610/805. Since resolved to 195/460. Hepatitis panel pending. -Total bilirubin remains elevated at 4.5. -Started on IV Zosyn 3.375 gm Q6H. -Pending MRI w/o contrast to r/o pancreatic mass. Pending pancreatic tumor markers. -Pending UA and MRSA PCR screen. -Consider GI consult pending MRI results. #Acute pancreatitis, suspect secondary to Trulicity -Patient does carry a history of heavy alcohol use though, he reports, he has not had any since 1984. Alcohol screen was negative at admission. Liver ultrasound performed this morning did not show any evidence of cholecystitis and choledocholithiasis. -Lipase elevated at 12,564. CT findings consistent with acute pancreatitis. -Lipid panel shows moderately elevated hypertriglyceridemia with a level of 291. Unlikely cause. -Continue to suspect the patient's Trulicity as leading etiology. Pt has been taking it for 4 years. -NS fluids decreased to 100 cc/hr. -Given 4 boluses of IV NS total since admitted -Advance diet after MRI, remain NPO for now. -Morphine 4 mg IV Q4H for pain. -IV Zofran for nausea. (QTc 407) #Shortness of breath, suspect diaphragmatic irritation from pancreatitis -Patient is saturating well on room air and reports resolved SOB with fluids/pain medication. PE considered to be unlikely at this point. Patient is no longer tachycardic. -Chest CT not concerning for any acute process -Resolved #DM2: -Holding home meds. Would not recommend continuing Trulicity at discharge -Levemir 16U daily -SSI with hypoglycemic protocol for now, Q6H coverage -Continue ASA #HTN: -Continue Lisinopril 10 mg PO daily #Elevated TSH -TSH level found to be 10.0. Free T4 was normal 1.16. -patient has no history of thyroid dysfunction -Recommend PCP follow-up #Anxiety: -Continue Sertraline 100 mg PO daily #Chronic constipation: -Holding home medications for now #HLD: -Continue Atorvastatin DVT PROPHYLAXIS: Teds and sequentials DISPOSITION: Pending clinical improvement. VS,Fishbone, I+O VS, Fishbone, I+O Laboratory Tests 08/09/20 16:04 08/10/20 06:28 Vital Signs Date Time Temp Pulse Resp B/P (MAP) Pulse Ox O2 Delivery O2 Flow Rate FiO2 08/10/20 06:00 99.4 104 18 141/75 (97) 95 Nasal Cannula 1.0 I&O- Last 24 Hours up to 6 AM 08/10/20 06:00 Intake Total 3410 ml Output Total 3000 ml Balance 410 ml GME ATTESTATION GME ATTESTATION My faculty preceptor for this patient encounter was physically present during the encounter and was fully available. All aspects of the patient interview, examination, medical decision making process, and medical care plan development were reviewed and approved by the faculty preceptor. The faculty preceptor is aware and concurs with the plan as stated in the body of this note and will attest to such by his/her cosignature. ROSE VALENTINE DO Aug 10, 2020 07:04
[2020-08-10 07:12] LABS: ALBUMIN 2.9 GM/DL (3.2-5.2); BILIRUBIN,TOTAL 4.5 MG/DL (0.2-1.0); CALCIUM LEVEL 7.9 MG/DL (8.8-10.2); CREATININE FOR GFR 2.08 MG/DL (0.70-1.30); POTASSIUM SERUM 4.3 MEQ/L (3.5-5.1); TOTAL PROTEIN 6.1 GM/DL (6.4-8.2)
[2020-08-10 08:21] LABS: BILIRUBIN,DIRECT 3.8 MG/DL (0.0-0.2)
--- NOTE | 2020-08-10 12:57 | REP ---
INDICATION: pancreatic profile. COMPARISON: Comparison CT study August 09, 2020 showed evidence of coli lithiasis and pancreatitis.. TECHNIQUE: MRCP protocol. Axial and coronal T2 weighted scans are obtained. MRCP acquisition is carried out in maximum density projection images are generated. FINDINGS: There is a 3.4 cm cyst in the upper pole of the right kidney. Extrarenal pelvis configuration is seen in the kidneys bilaterally. The gallbladder shows a fold in the fundus, small granular filling defects in the dependent portion consistent with small gallstones, and gallbladder is noted to be dilated measuring up to 10 cm in diameter. There is a small amount of pericholecystic fluid. Streaky edema is seen around the pancreatic body and head. Pancreatic duct is not dilated. The common bile duct is not dilated. No intrahepatic biliary ductal dilation is seen. No biliary stricture seen. No filling defect is seen within the common bile duct to suggest choledocholithiasis. IMPRESSION: Cholelithiasis. Dilated gallbladder with pericholecystic fluid and peripancreatic edema consistent with pancreatitis. No evidence of choledocholithiasis. <Electronically signed by Luis Wagner > 08/10/20 [id number]
[2020-08-10 14:00] VITALS: BP 139/75
[2020-08-10 14:35] LABS: HEPATITIS A ANTIBODY IGM NEGATIVE (NEGATIVE); HEPATITIS B CORE ANTIBODY IGM NEGATIVE (NEGATIVE); HEPATITIS B SURFACE ANTIGEN NEGATIVE (NEGATIVE); HEPATITIS C VIRUS ABY INDEX < 0.0 INDEX (<0.8)
[2020-08-10] MEDS: ACETAMINOPHEN 500 MG TAB PO PRN (14:58)
[2020-08-10] MEDS ORDERED: LACTATED RINGER'S 1000 ML IV ONE (15:15)
[2020-08-10] MEDS: LR 1,000 ML IV SCH (15:55)
[2020-08-10 20:11] LABS: BILIRUBIN,DIRECT 3.3 MG/DL (0.0-0.2); TOTAL PROTEIN 6.6 GM/DL (6.4-8.2)
[2020-08-10] MEDS: SERTRALINE 100 MG TAB PO SCH (20:30)
[2020-08-10] MEDS: LEVEMIR (INSULIN DETEMIR) 1 UNITS/0.01ML SC SCH (20:30)
[2020-08-10] MEDS: ATORVASTATIN 10 MG TAB PO SCH (20:30)
[2020-08-10] MEDS: ASPIRIN 81 MG ENTERIC TAB PO SCH (20:31)
[2020-08-10] MEDS: lisinopriL 10 MG TAB PO SCH (20:31)
[2020-08-10 22:00] VITALS: BP 169/88
[2020-08-11] MEDS: PIPERACILLIN/TAZOBACTAM SOD 3.375 GM in D5W MINI-BAG PLUS 50 ML IV SCH ×2 (00:51→05:52)
[2020-08-11] MEDS: HumaLOG INSULIN (NovoLOG) PER UNIT SC SCH ×5 (00:51→21:00)
[2020-08-11] MEDS: ACETAMINOPHEN 500 MG TAB PO PRN (05:51)
[2020-08-11] MEDS: LR 1,000 ML IV SCH ×2 (05:53→08:24)
[2020-08-11 06:00] VITALS: BP 152/68
[2020-08-11 06:14] LABS: HEMATOCRIT 38.1 % (42.0-52.0); HEMOGLOBIN 12.3 g/dl (13.5-17.5); MEAN CORPUSCULAR HEMOGLOBIN 29.6 pg (27.0-33.0); MEAN CORPUSCULAR HGB CONC 32.3 g/dl (32.0-36.5); MEAN CORPUSCULAR VOLUME 91.8 fl (80.0-96.0); PLATELET COUNT, AUTOMATED 156 10^3/uL (150-450); RED BLOOD COUNT 4.15 10^6/uL (4.30-6.10); WHITE BLOOD COUNT 7.2 10^3/uL (4.0-10.0)
[2020-08-11 06:40] LABS: ALBUMIN 2.9 GM/DL (3.2-5.2); ALT/SGPT 291 U/L (12-78); BILIRUBIN,TOTAL 3.7 MG/DL (0.2-1.0); BLOOD UREA NITROGEN 20 MG/DL (7-18); CARBON DIOXIDE LEVEL 26 MEQ/L (21-32); CHLORIDE LEVEL 101 MEQ/L (98-107); CREATININE FOR GFR 1.84 MG/DL (0.70-1.30); GLOMERULAR FILTRATION RATE 39.1 (>49); GLUCOSE, FASTING 165 MG/DL (70-100); POTASSIUM SERUM 4.2 MEQ/L (3.5-5.1); SODIUM LEVEL 134 MEQ/L (136-145); TOTAL PROTEIN 6.1 GM/DL (6.4-8.2)
[2020-08-11] MEDS: MEROPENEM INJ 1 GM in IV 1 EA IV SCH ×2 (11:16→17:30)
[2020-08-11 11:18] LABS: HEPATITIS B SURFACE ANTIGEN NEGATIVE (NEGATIVE)
[2020-08-11] MEDS ORDERED: GLUCOSE 4GM CHEW TABLET PO PRN (11:30)
[2020-08-11] MEDS ORDERED: DEXTROSE 50% 50 ML SYRINGE IV PRN (11:30)
[2020-08-11] MEDS ORDERED: GLUCAGON INJ 1MG VIAL SC PRN (11:30)
[2020-08-11 11:46] LABS: HEPATITIS C VIRUS ABY INDEX < 0.0 INDEX (<0.8)
[2020-08-11 11:47] LABS: HEPATITIS B CORE ANTIBODY IGM NEGATIVE (NEGATIVE)
[2020-08-11 11:48] LABS: HEPATITIS A ANTIBODY IGM NEGATIVE (NEGATIVE)
--- NOTE | 2020-08-11 11:51 | IPNPDOC ---
Text Note Date of Service The patient was seen on 08/11/20. NOTE SUBJECTIVE: Patient was seen and examined at the bedside this morning. She continued to remain intermittently febrile overnight, otherwise no acute events. He reports that he is feeling "great". He has been up to the bathroom without any difficulty. Denies any abdominal pain or discomfort. He was able to eat dinner last evening but he was nothing by mouth after midnight. She remains hungry. Pt denies chest pain, SOB, dizziness, fevers and chills. OBJECTIVE: VITAL SIGNS: Please see below. CONSTITUTIONAL: Patient examined in his hospital room. Patient was found to be resting comfortably in bed in no acute distress. Patient was easily arousable, able to answer questions appropriately regarding last 24 hours. HEENT: PERRL. EOM intact. No lymphadenopathy noted. CV: S1S2 present. RRR. No murmurs, rubs or gallops. RESPIRATORY: Clear auscultation in all lung ann. No wheezing, rales or rhonchi appreciated. ABDOMEN: Soft, nontender, nondistended abdomen. Bowel sounds normoactive in all 4 quadrants. EXTREMITIES: No edema noted. Pulses 2+ equal and bilateral. NEUROLOGICAL: AAOx3. No obvious focal neurologic deficits. Strength 5/5 in bilateral upper and lower extremities. PSYCHIATRIC: Reports some anxiety, otherwise mood and affect are appropriate. IMAGING: Chest CT (08/09/20): Abdomen/pelvis CT (08/09/20): Acute pancreatitis. Cholelithiasis. No specific evidence of acute cholecystitis. Hepatomegaly. Geographic steatosis predominantly involving the right hepatic lobe. Diverticulosis of the colon. No evidence of acute diverticulitis. Mild inflammatory changes involving epiploic appendage in the left lower quadrant. Liver US (08/09/20): Small gallbladder calculi without evidence of cholecystitis or biliary duct dilatation. Pancreas is obscured by bowel gas. There is peripancreatic inflammation on the comparison CT. Right renal upper pole cyst similar to the comparison CT. No right upper quadrant abdominal free fluid Abd MRI (08/10/20): Cholelithiasis. Dilated gallbladder and pericholecystic fluid and peripancreatic edema consistent with pancreatitis. No evidence of choledocholithiasis. ASSESSMENT: Mr. Fong is a 70 y/o male with PMH of DM2, HLD and HTN who presents with worsening abdominal pain and shortness of breath. Pt was found to have an elev ated lipase and a CT abdomen concerning for acute pancreatitis. Pt is admitted for IV fluids and pain management. Acute elevations in AST/ALT and T bili, resolving. No white count, though patient remains intermittently febrile. Suspect gallstone pancreatitis etiology, possibly compounded by Trulicity use. Zosyn to Meropenem on 08/11. Will plan to continue for 24-48 hours and D/C home with GI follow-up. PLAN: #Gallstone pancreatitis -Given patient's elevation in liver enzymes and bilirubin, suspect some degree of gallstone obstruction. -No specific findings on abdominal MRI, mild bile duct dilation, cholelithiasis without choledocholithiasis. -GI on board and does not believe urgent ERCP is required. -Patient's Zosyn changed to Meropenem for better abdominal coverage. LR for hydration. -Will continue to progress to full diet. -Continue to monitor fevers, white count #DM2: -Holding home meds. -Possibility Trulicity may be a compounding factor. Will plan to stop medication at discharge -Levemir 16U daily -SSI with hypoglycemic protocol for now, Q6H coverage -Continue ASA #HTN: -Continue Lisinopril 10 mg PO daily #Elevated TSH -TSH level found to be 10.0. Free T4 was normal 1.16. -patient has no history of thyroid dysfunction -Recommend PCP follow-up #Anxiety: -Continue Sertraline 100 mg PO daily #Chronic constipation: -Holding home medications for now #HLD: -Continue Atorvastatin DVT PROPHYLAXIS: Teds and sequentials DISPOSITION: Anticipate D/C within 48 hours. VS,Fishbone, I+O VS, Fishbone, I+O Laboratory Tests 08/11/20 06:02 Vital Signs Date Time Temp Pulse Resp B/P (MAP) Pulse Ox O2 Delivery O2 Flow Rate FiO2 08/11/20 06:00 101.0 95 18 152/68 (96) 92 Nasal Cannula 1.0 I&O- Last 24 Hours up to 6 AM 08/11/20 06:00 Intake Total 3560 ml Output Total 4500 ml Balance -940 ml GME ATTESTATION GME ATTESTATION My faculty preceptor for this patient encounter was physically present during the encounter and was fully available. All aspects of the patient interview, examination, medical decision making process, and medical care plan development were reviewed and approved by the faculty preceptor. The faculty preceptor is aware and concurs with the plan as stated in the body of this note and will attest to such by his/her cosignature. ROSE VALENTINE DO Aug 11, 2020 11:51
[2020-08-11 14:00] VITALS: BP 163/98
[2020-08-11] MEDS ORDERED: CALCIUM CARBONATE 500 MG CHEW U/D PO ONE ×2 (15:45→16:00)
[2020-08-11] MEDS: LEVEMIR (INSULIN DETEMIR) 1 UNITS/0.01ML SC SCH (21:00)
[2020-08-11] MEDS: ASPIRIN 81 MG ENTERIC TAB PO SCH (21:01)
[2020-08-11] MEDS: SERTRALINE 100 MG TAB PO SCH (21:01)
[2020-08-11] MEDS: ATORVASTATIN 10 MG TAB PO SCH (21:01)
[2020-08-11] MEDS: lisinopriL 10 MG TAB PO SCH (21:01)
[2020-08-11 22:00] VITALS: BP 160/90
[2020-08-11 22:54] VITALS: BP 180/102
[2020-08-12 00:40] VITALS: BP 170/90
[2020-08-12] MEDS: MEROPENEM INJ 1 GM in IV 1 EA IV SCH ×3 (01:31→17:23)
[2020-08-12] MEDS: LR 1,000 ML IV SCH (01:31)
[2020-08-12] MEDS: **hydrALAZINE HCL** 25 MG TAB PO SCH ×3 (05:15→22:08)
[2020-08-12 06:00] VITALS: BP 160/94
[2020-08-12 06:24] LABS: HEMATOCRIT 41.2 % (42.0-52.0); HEMOGLOBIN 13.7 g/dl (13.5-17.5); MEAN CORPUSCULAR HEMOGLOBIN 30.8 pg (27.0-33.0); MEAN CORPUSCULAR HGB CONC 33.3 g/dl (32.0-36.5); MEAN CORPUSCULAR VOLUME 92.6 fl (80.0-96.0); PLATELET COUNT, AUTOMATED 152 10^3/uL (150-450); RED BLOOD COUNT 4.45 10^6/uL (4.30-6.10); WHITE BLOOD COUNT 6.3 10^3/uL (4.0-10.0)
[2020-08-12 06:42] LABS: ALBUMIN 2.9 GM/DL (3.2-5.2); CALCIUM LEVEL 8.6 MG/DL (8.8-10.2); CREATININE FOR GFR 1.65 MG/DL (0.70-1.30); GLOMERULAR FILTRATION RATE 44.4 (>49); POTASSIUM SERUM 3.9 MEQ/L (3.5-5.1); TOTAL PROTEIN 6.4 GM/DL (6.4-8.2)
[2020-08-12] MEDS: HumaLOG INSULIN (NovoLOG) PER UNIT SC SCH ×4 (08:57→21:00)
--- NOTE | 2020-08-12 12:24 | IPNPDOC ---
Text Note Date of Service The patient was seen on 08/12/20. NOTE SUBJECTIVE: Patient seen and examined at bedside. No acute overnight events reported. Patient has no new medical complaints. He denies any abdominal pain. He has been tolerating his diet. OBJECTIVE: VITAL SIGNS: Please see below. General: NAD, lying comfortably in bed HEENT: NC/AT, EOMI CV: +S1S2, RRR. No murmurs, rubs or gallops. RESPIRATORY: Clear auscultation in all lung ann. No wheezing, rales or rhonchi appreciated. ABDOMEN: obese, soft, nontender, nondistended abdomen. Bowel sounds normoactive in all 4 quadrants. EXTREMITIES: No edema noted. Pulses 2+ equal and bilateral. ASSESSMENT: 70M with PMH of DM2, HLD and HTN who presents with worsening abdominal pain and shortness of breath. Pt was found to have an elevated lipase and a CT abdomen concerning for acute pancreatitis. PLAN: # pancreatitis - suspect secondary to gallstone, possibly complicated with Trulicity use - continue with meropenem - tolerating diet - labs improving - follow as per GI - assistance appreciated #DM2: - Trulicity on hold - continue with insuling sliding scale/basal insulin - will likely discharge on insulin -Continue ASA - defer to PCP regarding alternative to Trulicity #HTN: -Continue Lisinopril 10 mg PO daily #Elevated TSH -TSH level found to be 10.0. Free T4 was normal 1.16. -patient has no history of thyroid dysfunction -Recommend PCP follow-up #Anxiety: -Continue Sertraline 100 mg PO daily #Chronic constipation: -Holding home medications for now #HLD: -Continue Atorvastatin DVT PROPHYLAXIS: Teds and sequentials DISPOSITION: Anticipate D/C within 24-48 hours. VS,Fishbone, I+O VS, Fishbone, I+O Laboratory Tests 08/12/20 05:52 Vital Signs Date Time Temp Pulse Resp B/P (MAP) Pulse Ox O2 Delivery O2 Flow Rate FiO2 08/12/20 09:30 0.0 08/12/20 06:00 97.3 85 16 160/94 (116) 97 Nasal Cannula I&O- Last 24 Hours up to 6 AM 08/12/20 06:00 Intake Total 3885 ml Output Total 2475 ml Balance 1410 ml GALINA MARTIN MD Aug 12, 2020 12:24
[2020-08-12 14:00] VITALS: BP 143/73
[2020-08-12 18:01] LABS: HEMATOCRIT 41.1 % (42.0-52.0); HEMOGLOBIN 13.6 g/dl (13.5-17.5); MEAN CORPUSCULAR HEMOGLOBIN 30.4 pg (27.0-33.0); MEAN CORPUSCULAR HGB CONC 33.1 g/dl (32.0-36.5); MEAN CORPUSCULAR VOLUME 91.7 fl (80.0-96.0); PLATELET COUNT, AUTOMATED 172 10^3/uL (150-450); RED BLOOD COUNT 4.48 10^6/uL (4.30-6.10); WHITE BLOOD COUNT 6.9 10^3/uL (4.0-10.0)
[2020-08-12 18:30] LABS: ALBUMIN 2.9 GM/DL (3.2-5.2); BILIRUBIN,DIRECT 1.8 MG/DL (0.0-0.2); BILIRUBIN,TOTAL 2.3 MG/DL (0.2-1.0); CALCIUM LEVEL 8.5 MG/DL (8.8-10.2); CREATININE FOR GFR 1.6 MG/DL (0.70-1.30); POTASSIUM SERUM 4.1 MEQ/L (3.5-5.1); TOTAL PROTEIN 6.4 GM/DL (6.4-8.2)
[2020-08-12] MEDS ORDERED: MOM 30ML SUSPENSION UDC PO PRN (21:45)
[2020-08-12 22:00] VITALS: BP 150/90
[2020-08-12] MEDS: ATORVASTATIN 10 MG TAB PO SCH (22:05)
[2020-08-12] MEDS: LEVEMIR (INSULIN DETEMIR) 1 UNITS/0.01ML SC SCH (22:05)
[2020-08-12] MEDS: ASPIRIN 81 MG ENTERIC TAB PO SCH (22:05)
[2020-08-12] MEDS: SERTRALINE 100 MG TAB PO SCH (22:05)
[2020-08-12] MEDS: lisinopriL 10 MG TAB PO SCH (22:07)
[2020-08-13] MEDS: MEROPENEM INJ 1 GM in IV 1 EA IV SCH ×2 (01:55→09:02)
[2020-08-13 06:00] VITALS: BP 117/69
[2020-08-13 06:26] VITALS: BP 152/100
[2020-08-13] MEDS: **hydrALAZINE HCL** 25 MG TAB PO SCH (06:26)
[2020-08-13 08:51] LABS: ALBUMIN 2.8 GM/DL (3.2-5.2); BILIRUBIN,DIRECT 1.4 MG/DL (0.0-0.2); CALCIUM LEVEL 8.5 MG/DL (8.8-10.2); CREATININE FOR GFR 1.77 MG/DL (0.70-1.30); GLOMERULAR FILTRATION RATE 40.9 (>49); TOTAL PROTEIN 6.3 GM/DL (6.4-8.2)
[2020-08-13 08:53] LABS: HEMATOCRIT 41.2 % (42.0-52.0); HEMOGLOBIN 13.1 g/dl (13.5-17.5); MEAN CORPUSCULAR HEMOGLOBIN 29.6 pg (27.0-33.0); MEAN CORPUSCULAR HGB CONC 31.8 g/dl (32.0-36.5); PLATELET COUNT, AUTOMATED 188 10^3/uL (150-450); RED BLOOD COUNT 4.43 10^6/uL (4.30-6.10); WHITE BLOOD COUNT 7.7 10^3/uL (4.0-10.0)
[2020-08-13] MEDS: HumaLOG INSULIN (NovoLOG) PER UNIT SC SCH ×2 (09:01→12:10)
[2020-08-13] MEDS ORDERED: BLOOKIT21 XX (11:14)
[2020-08-13] MEDS ORDERED: PEN1MIS22 SC (11:14)
[2020-08-13] MEDS ORDERED: LANTINJ4 SC (11:14)
[2020-08-13] MEDS ORDERED: INSU1MIS20 SC (11:14)
[2020-08-13] MEDS ORDERED: GLUC1TES2 XX (11:14)
[2020-08-13] MEDS ORDERED: ALCOPAD25 TOP (11:14)
[2020-08-13] MEDS ORDERED: LANC30MI XX (11:14)
[2020-08-13] MEDS ORDERED: LEVO750T13 PO (11:14)
[2020-08-13] MEDS ORDERED: HUMA100I5 SC ×2 (11:59→12:40)
--- NOTE | 2020-08-13 16:07 | DS.PDOC ---
Discharge Summary General Date of Admission Aug 09, 2020 at 04:01 Date of Discharge 08/13/20 Discharge Summary PROCEDURES PERFORMED DURING STAY: [None]. ADMITTING DIAGNOSES: 1. . DISCHARGE DIAGNOSES: 1. . COMPLICATIONS/CHIEF COMPLAINT: Acute Pantreatitis. HISTORY OF PRESENT ILLNESS: 70M with history of diabetes type 2, hyperlipidemia, hypertension who presents to the ED for several hours shortness of breath and abdominal pain. The patient reports his pain had sudden onset around 1800 after eating pizza from a restaurant. He states it feels as though he has "really bad acid reflux." He stated he was unable to take deep breaths, but denied any coughing or dyspnea on exertion. One week ago, he started having abdominal discomfort and nausea/vomiting after eating out at a restaurant. Initially the pain resolved but this evening it has returned and is more severe. He denied any recent fevers, chills, diarrhea. He has had no recent travel and no sick contacts. Hospital Course: patient was admitted for further evaluation and treatment. Seen in consultation by GI and treated for pancreatitis. Etiology was not clear with gallstone pancreatitis vs alcohol vs medication related (Trulicity). Gallstone pancreatitis was favored primary diagnoses. He responded well to NPO status, and IV antibiotics with IV fluids, and eventually tolerated a diet. His labs improved, particularly his elevated bilirubin. He had one blood culture positive, with 3 negative to date. He was discharged home with oral antibiotics and outpatient followup. Case was discussed at length with his PCP, and decided to discharge with insulin, and follow up the next day following discharge. PAST MEDICAL HISTORY: 1. T2DM 2. HLD 3. DJD spine 4. Anxiety disorder 5. HTN HOSPITAL COURSE: . DISCHARGE MEDICATIONS: Please see below. ALLERGIES: Please see below. PHYSICAL EXAMINATION ON DISCHARGE: VITAL SIGNS: Please see below. GENERAL: HEENT: NECK: CARDIOVASCULAR EXAMINATION: RESPIRATORY EXAMINATION: ABDOMINAL EXAMINATION: EXTREMITIES: SKIN: NEUROLOGICAL EXAMINATION: PSYCHIATRIC EXAMINATION: LABORATORY DATA: Please see below. IMAGING: PROGNOSIS: ACTIVITY: [As tolerated]. DIET: DISCHARGE PLAN: DISPOSITION: Home, Self-Care. DISCHARGE INSTRUCTIONS: 1. . ITEMS TO FOLLOWUP ON ON OUTPATIENT: 1. . DISCHARGE CONDITION: [Stable]. TIME SPENT ON DISCHARGE: Greater than minutes. Vital Signs/I&Os Vital Signs Date Time Temp Pulse Resp B/P (MAP) Pulse Ox O2 Delivery O2 Flow Rate FiO2 08/13/20 09:00 0.0 08/13/20 06:26 152/100 08/13/20 06:00 98.4 82 20 96 Nasal Cannula I&O- Last 24 Hours up to 6 AM 08/13/20 06:00 Intake Total 2380 ml Output Total 2675 ml Balance -295 ml Laboratory Data Labs 24H Laboratory Tests 2 08/12/20 16:31: Bedside Glucose (Misc Panel) 214H 08/12/20 17:45: Nucleated Red Blood Cells % (auto) 0.0, Anion Gap 9, Glomerular Filtration Rate 46.0L, Calcium Level 8.5L, Total Bilirubin 2.3H, Direct Bilirubin 1.8H, Aspartate Amino Transf (AST/SGOT) 45H, Alanine Aminotransferase (ALT/SGPT) 185H, Alkaline Phosphatase 168H, Total Protein 6.4, Albumin 2.9L, Albumin/Globulin Ratio 0.8 08/12/20 21:21: Bedside Glucose (Misc Panel) 170H 08/13/20 08:02: Nucleated Red Blood Cells % (auto) 0.0, Anion Gap 7L, Glomerular Filtration Rate 40.9L, Calcium Level 8.5L, Total Bilirubin 2.0H, Direct Bilirubin 1.4H, Aspartate Amino Transf (AST/SGOT) 41H, Alanine Aminotransferase (ALT/SGPT) 154H, Alkaline Phosphatase 179H, Total Protein 6.3L, Albumin 2.8L, Albumin/Globulin Ratio 0.8 08/13/20 11:46: Bedside Glucose (Misc Panel) 168H CBC/BMP Laboratory Tests 08/12/20 17:45 08/13/20 08:02 FSBS Laboratory Tests Test 08/12/20 16:31 08/12/20 21:21 08/13/20 11:46 Range/Units Bedside Glucose (Misc Panel) 214 170 168 80-115 MG/DL Microbiology Microbiology 08/10/20 Blood Culture - Preliminary, Resulted No Growth after 72 hours. All specime... 08/10/20 Blood Culture - Preliminary, Resulted No Growth after 72 hours. All specime... 08/09/20 Blood Culture - Preliminary, Resulted No Growth after 72 hours. All specime... 08/09/20 Blood Culture - Final, Complete Klebsiella Oxytoca Discharge Medications Scheduled Aspirin (Ecotrin) 81 Mg Tablet.dr, 81 MG PO QHS, (Reported) Atorvastatin Calcium (Atorvastatin Calcium) 10 Mg Tablet, 10 MG PO QHS, (Reported) Blood Sugar Diagnostic (Advanced Glucose Test Strips) 1 Each Strip, 1 STRIP XX ASDIRECTED Insulin Glargine,Hum.rec.anlog (Lantus Solostar) 100 Unit/1 Ml Insuln.pen, 20 UNITS SC QHS Insulin Lispro (Humalog Kwikpen U-100) 100 Unit/1 Ml Insuln.pen, 0 SC ACHS As per sliding scale provided. Levofloxacin (Levofloxacin) 750 Mg Tablet, 750 MG PO Q48H Lisinopril (Lisinopril) 10 Mg Tab, 10 MG PO QHS, (Reported) Metformin HCl (Metformin HCl) 500 Mg Tablet, 1,000 MG PO DAILY, (Reported) Sertraline HCl (Sertraline HCl) 100 Mg Tab, 100 MG PO QHS, (Reported) Scheduled PRN Linaclotide (Linzess) 145 Mcg Cap, 145 MG PO DAILY PRN for CONSTIPATION, (Reported) Allergies Coded Allergies: No Known Allergies (Unverified , 03/11/19) GALINA MARTIN MD Aug 13, 2020 16:07
[2020-08-13] MEDS ORDERED: LevoFLOXacin 750 MG TABLET PO SCH (18:00)
== END 2020-08-13 14:03 | disposition home or self-care (01) | DRG 440 ==
LOC: M ED 22:53 → M MSPAV 08-09 04:01 → ENRESERV 08-09 04:11 → M ED 08-09 04:55 → M MSPAV 08-09 04:56
PROVIDERS: ADMIT Family Medicine; ATTEND Internal Medicine
DX: K85.10 Biliary acute pancreatitis without necrosis or infection (principal); K80.20 Calculus of gallbladder without cholecystitis without obstruction; R16.0 Hepatomegaly, not elsewhere classified; K57.90 Diverticulosis of intestine, part unspecified, without perforation or abscess without bleeding; E11.9 Type 2 diabetes mellitus without complications; E78.5 Hyperlipidemia, unspecified; F41.9 Anxiety disorder, unspecified; I10 Essential (primary) hypertension; K59.09 Other constipation; Z87.891 Personal history of nicotine dependence; Z79.82 Long term (current) use of aspirin; Z79.84 Long term (current) use of oral hypoglycemic drugs; Z79.899 Other long term (current) drug therapy; Z20.828 Contact with and (suspected) exposure to other viral communicable diseases

== ENCOUNTER → 2020-10-04 | Outpatient (CLI) | payer MEDICARE, OTHER ==
[~2020-10-04] MED LIST changes: +ALCOPAD25 TOP; +ATOR1TAB19 PO; +BLOOKIT21 XX; +ECOT81TA5 PO; +GLUC1TES2 XX; +HUMA100I5 SC; +INSU1MIS20 SC; +LANC30MI XX; +LEVO750T13 PO; +LISI10TA22 PO; -LISI10TA4 PO; +PEN1MIS22 SC; +TRUL0.5I SC; +ZOLO100T PO
--- NOTE | 2020-10-10 11:17 | ECHO ---
DATE OF PROCEDURE: 10/04/2020 Age: 70 Gender: Male Height: 182 cm Weight: 117 kg REFERRING PHYSICIAN: Dr. Colleen Huang INDICATION: Cardiac murmur, unspecified. MEASUREMENTS: 2D Measurements: Intraventricular septum 0.98 cm Posterior wall 1.10 cm Left ventricle diastole 4.4 cm Aortic root 2.8 cm Left atrium 3.4 cm LVOT 2.0 cm Left atrial volume index 20 cm Inferior vena cava 1.4 cm Doppler Measurements: Moderate aortic stenosis No aortic regurgitation Peak aortic valve velocity 395 cm/s Peak aortic valve gradient 62 mmHg Mean aortic valve gradient 38 mmHg Aortic VTI 75.6 cm Aortic valve area (continuity equation, VTI) 1.10 cm2 Dimensionless index 0.35 LVOT velocity 114 cm/s LVOT VTI 26.4 cm No mitral regurgitation No mitral stenosis Mitral E velocity 73.3 cm/s Mitral A velocity 66.4 cm/s Mitral deceleration time 280 msec No tricuspid regurgitation No pulmonic regurgitation Pulmonary acceleration time 114 msec MITRAL ANNULAR TISSUE DOPPLER E prime septal 6.5 cm/s, E prime lateral 10.6 cm/s DESCRIPTION: Rhythm was sinus. Image quality was fair. No pericardial effusion. This was a 2D, M-mode, color flow Doppler, and pulsed wave Doppler examination including mitral annular tissue Doppler. CONCLUSIONS: 1. Severe calcification and thickening of the aortic valve. Technically difficult visualization for determination of the number of aortic cusps. Moderate aortic stenosis with peak transvalvular aortic velocity of 3.95 msec, mean aortic valve gradient of 38 mmHg, aortic valve area (continuity equation, VTI) 1.10 cm2, and dimensionless index of 0.35. No aortic regurgitation. 2. Normal left ventricle internal dimensions and wall thickness. Normal regional LV wall motion and wall thickening. Normal LV systolic function. LVEF 65% - 70% by visual estimate. Indeterminate for assessment of LV diastolic function (normal LV diastolic function versus grade 2 LV diastolic dysfunction). Presence of normal left atrial volume index would tend to favor normal LV diastolic function. 3. Moderate mitral annular calcification. No mitral regurgitation or mitral stenosis. 4. Otherwise normal appearing echocardiogram Doppler findings. RECOMMENDATIONS: Recommend a follow-up echocardiogram Doppler in six months. Recommend close clinical surveillance of this patient for development of heart failure, syncope, or anginal symptoms. MTDD
== END ==
LOC: M CARPUL 10:53
PROVIDERS: ATTEND Family Medicine
DX: R01.1 Cardiac murmur, unspecified (principal)

== ENCOUNTER → 2020-10-12 | Outpatient (CLI) | payer MEDICARE, OTHER | LOC: M LABSMTC 09:50 | PROVIDERS: ATTEND Anesthesiology | DX: Z01.818 Encounter for other preprocedural examination (principal) ==

== ENCOUNTER 2020-10-17 11:04 | Day surgery (SDC) | payer MEDICARE, OTHER ==
[~2020-10-17] VITALS: Ht 182.9 cm; Wt 116.9 kg
[~2020-10-17 11:04] MED LIST changes: +LIDOCAINE 1% MDV 20ML VIAL SQ PRN; +LR 1,000 ML IV ONE
--- OUTSIDE RECORDS SUMMARY | 2020-10-17 11:09 | CCD | Continuity of Care Document ---
Author Author Arjun WU PMaddy Organization Unknown Address [address] [place] [id number] Phone [phone] Care Team Providers [employer] Name Role Phone Colleen Huang DO AUTM [phone] Problems Active Problems Provider Date Radial styloid tenosynovitis Onset: 06/02 Pure hypercholesterolemia Martin Lee Onset: 09/28/2020 Essential hypertension Martin Lee Onset: Social History Type Date Description Comments Sex Unknown ETOH Use Denies alcohol use Tobacco Use Start: Unknown Denies Smoking Allergies, Adverse Reactions, Alerts Description No Information Available Medications Active Medications SIG Qnty Indications Ordering Provide r Date Lantus 100Unit/ML Solution 12 units twice a day Unknown Metformin HCL 500mg Tablets Unknown Sertraline HCL 100mg Tablets Unknown Atorvastatin Calcium 10mg Tablets Unknown Lisinopril 10mg Tablets Unknown Aspirin [address] 1 by mouth every day Unknown Insulin Aspart 100Unit/ML Solution use 3 times daily based on sliding scale maximum daily dose = 100 units Unknown Immunizations Description No Information Available Vital Signs Date Vital Result Comment 09/28/2020 11:12am Body Temperature 97.3 F Height 72 inches 6'0" Weight 259.00 lb BMI (Body Mass Index) 35.1 kg/m2 Results Description No Information Available Procedures Date Code Description Status 09/28/2020 90048 Inject/Drain Joint/Bursa Major C ompleted Medical Devices Description No Information Available Encounters Type Date Location Provider Dx Diagnosis Office Visit 09/28/2020 10:45a [facility] Den[facility] Wu, Wu. M25.511 Pain in right shoulder M19.011 Primary osteoarthritis, righ t shoulder Assessments Date Code Description Provider 09/28/2020 M25.511 Pain in right shoulder Martin Parisi 09/28/2020 M19.011 Primary osteoarthritis, right sh oulder Martin Lee Plan of Treatment 09/28/2020 - Wu Lee.* M25.511 Pain in right shoulder * M19.011 Primary osteoarthritis, right shoulder* Follow up:* in 6 weeks for right shoulder recheck with [facility] if needed please. Functional Status Description No Information Available Mental Status Description No Information Available Referrals Description No Information Available
--- OUTSIDE RECORDS SUMMARY | 2020-10-17 11:10 | CCD ---
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 Colleen Huang DO 10-11-2020 Cholelithiasis AND cholecystitis with ob struction [SNOMED-CT: 13569535] Dr. Colleen Huang DO 10-04-2020 Emotional stress [SNOMED-CT: 772203173] Dr. Colleen Huang DO 10-04-2020 Heart murmur [SNOMED-CT: 47081822] Flora Huang DO 10-04-2020 Calcific aortic stenosis - bicuspid valv e [SNOMED-CT: 491648213] Dr. Colleen Huang DO 10-02-2020 Cholelithiasis AND cholecystitis with ob struction [SNOMED-CT: 64103381] Dr. Colleen Huang DO 10-02-2020 Type II diabetes mellitus poorly control led [SNOMED-CT: 179577727] Dr. Colleen Huang DO 10-02-2020 Chronic kidney disease [SNOMED-CT: 944564742] Dr. 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 Colleen Huang, DO 10-02-2020 Pancreatitis [SNOMED-CT: 88963545] Flora Huang, DO 10-02-2020 Unspecified injury of right shoulder and upper arm [ICD10: S49.91XA] Dr. Colleen Huang, DO 09-27-2020 Unspecified injury of right shoulder and upper arm [ICD10: S49.91XA] Dr. Colleen Huang, DO 09-26-2020 Type II diabetes mellitus poorly control led [SNOMED-CT: 317587364] Dr. Colleen Huang, DO 09-26-2020 Type II diabetes mellitus poorly control led [SNOMED-CT: 740429743] Dr. Colleen Huang, DO 09-15-2020 Nausea and vomiting [SNOMED-CT: 97754350] Dr. Colleen Huang, DO 09-15-2020 Emotional stress [SNOMED-CT: 584294007] Dr. Colleen Huang, DO 08-30-2020 Type II diabetes mellitus poorly control led [SNOMED-CT: 812975160] Dr. Colleen Huang, DO 08-30-2020 Acute pancreatitis [SNOMED-CT: 618025489] Dr. Colleen Huang, DO 08-23-2020 Type II diabetes mellitus poorly control led [SNOMED-CT: 442991942] Dr. Colleen Huang, DO 08-23-2020 Generalised itching [SNOMED-CT: 831951531] Celestine Huang, DO 08-23-2020 Thyroiditis [SNOMED-CT: 90843083] Dr Joe Huang, DO 08-23-2020 Chronic kidney disease [SNOMED-CT: 060610902] Dr. Colleen Huang, DO 08-23-2020 Acute pancreatitis [SNOMED-CT: 662812908] Dr. Colleen Huang, DO 08-15-2020 Type II diabetes mellitus poorly control led [SNOMED-CT: 705399605] Dr. Colleen Huang, DO 08-15-2020 Generalised itching [SNOMED-CT: 783899045] Celestine Huang, DO 08-15-2020 Acute pancreatitis [SNOMED-CT: 721898631] Dr. Colleen Huang, DO 08-14-2020 Type II diabetes mellitus poorly control led [SNOMED-CT: 456157284] Dr. Colleen Huang, DO 08-14-2020 Other hyperlipidemia [ICD10: E78.49] Dr. Colleen Huang, DO 08-14-2020 Balanitis [SNOMED-CT: 88304479] Dr. Colleen Huang, DO 05-30-2020 Type II diabetes mellitus poorly control led [SNOMED-CT: 932092585] Dr. Colleen Huang, DO 05-30-2020 Type II diabetes mellitus poorly control led [SNOMED-CT: 727173802] Dr. Colleen Huang, DO 03-22-2020 Other hyperlipidemia [ICD10: E78.49] Dr. Colleen Huang, DO 03-22-2020 DIABETES MELLITUS WITHOUT MENTION OF COM PLICATION [SNOMED-CT: 891464450] N/A N/A 03-15-2020 Acute rhinosinusitis [SNOMED-CT: 591692739] Dr. Colleen Huang, DO 09-08-2019 Upper respiratory infection [SNOMED-CT: 68179380] Dr. Colleen Huang, DO 09-08-2019 DIABETES WITH RENAL MANIFESTATIONS TYPE II OR UNSPECIFIED TYPE NOT STATED UNCONTROLLED [SNOMED-CT: 861413479] Dr. Colleen Huang, DO 08-13-2019 UNSPECIFIED ESSENTIAL HYPERTENSION [SNOMED-CT: 2338664 0] N/A N/A 08-13-2019 ANXIETY STATE UNSPECIFIED [SNOMED-CT: 787835410] Celestine Huang, DO 08-13-2019 CHRONIC KIDNEY DISEASE STAGE II (MILD) [SNOMED-CT: 431 122493] Dr. Colleen Huang, DO 08-13-2019 Other specified vaccination [ICD10: Z23] Celestine Huang, DO 08-13-2019 Pain in left foot [SNOMED-CT: 154301183450572] Dr. Colleen Huang, DO 06-18-2019 DIABETES MELLITUS WITHOUT MENTION OF COM PLICATION [SNOMED-CT: 667971102] Celestine Huang, DO 06-18-2019 DIABETES WITH RENAL MANIFESTATIONS TYPE II OR UNSPECIFIED TYPE NOT STATED UNCONTROLLED [SNOMED-CT: 445442816] Dr. Colleen Huang, DO 03-24-2019 Contusion of lower back and pelvis, init ial encounter [ICD10: S30.0XXA] Dr. Colleen Huang, DO 12-14-2018 DIABETES WITH RENAL MANIFESTATIONS TYPE II OR UNSPECIFIED TYPE NOT STATED UNCONTROLLED [SNOMED-CT: 858602688] Dr. Colleen Huang, DO 12-14-2018 DIABETES MELLITUS WITHOUT MENTION OF COM PLICATION [SNOMED-CT: 784868118] N/A N/A 09-07-2018 DIABETES WITH RENAL MANIFESTATIONS TYPE II OR UNSPECIFIED TYPE NOT STATED UNCONTROLLED [SNOMED-CT: 600624458] Dr. Colleen Huang, DO 07-20-2018 Other hyperlipidemia [ICD10: E78.49] Dr. Colleen Hunag, DO 07-20-2018 Back pain [SNOMED-CT: 109706622] Dr. Colleen Huang, DO 06-03-2018 DIABETES WITH RENAL MANIFESTATIONS TYPE II OR UNSPECIFIED TYPE NOT STATED UNCONTROLLED [SNOMED-CT: 354531433] Dr. Colleen Huang, DO 06-03-2018 Arthropathy of left shoulder [SNOMED-CT: 1317429219647 9103] Dr. Colleen Huang, DO 06-03-2018 DIABETES WITH RENAL MANIFESTATIONS TYPE II OR UNSPECIFIED TYPE NOT STATED UNCONTROLLED [SNOMED-CT: 731874644] Dr. Colleen Huang, DO 03-27-2018 Viral gastroenteritis [SNOMED-CT: 861357551] Dr. Colleen Huang, DO 12-26-2017 DIABETES WITH RENAL MANIFESTATIONS TYPE II OR UNSPECIFIED TYPE NOT STATED UNCONTROLLED [SNOMED-CT: 626974564] Dr. Colleen Huang, DO 12-26-2017 Cat bite [SNOMED-CT: 740193489] Dr. Colleen Huang, DO 12-26-2017 DIABETES WITH RENAL MANIFESTATIONS TYPE II OR UNSPECIFIED TYPE NOT STATED UNCONTROLLED [SNOMED-CT: 033729783] Dr. Colleen Huang, DO 09-24-2017 DIABETES MELLITUS WITHOUT MENTION OF COM PLICATION [SNOMED-CT: 317547716] Celestine Huang, DO 09-24-2017 ROUTINE GENERAL MEDICAL EXAMINATION AT A HEALTH CARE FACILITY [SNOMED-CT: 990224587] Celestine Huang, DO 06-02-2017 DIABETES WITH RENAL MANIFESTATIONS TYPE II OR UNSPECIFIED TYPE NOT STATED UNCONTROLLED [SNOMED-CT: 624871248] Dr. Colleen Huang, DO 06-02-2017 Allergic contact dermatitis of male melissa isamar [SNOMED-CT: 845018872] Dr. Colleen Huang, DO 03-07-2017 Other genital problems [ICD10: R68.89] Dr. Colleen Huang, DO 03-07-2017 DIABETES WITH RENAL MANIFESTATIONS TYPE II OR UNSPECIFIED TYPE NOT STATED UNCONTROLLED [SNOMED-CT: 473652653] Dr. Colleen Huang, DO 03-07-2017 Back pain [SNOMED-CT: 907803370] Dr. Colleen Haung, DO 03-07-2017 LUMBAGO [SNOMED-CT: 245528509] Jose Angel Huang, DO 03-07-2017 Penile cellulitis/abscess/boil [SNOMED-CT: 238454509] Dr. Colleen Huang, DO 01-15-2017 DIABETES WITH RENAL MANIFESTATIONS TYPE II OR UNSPECIFIED TYPE NOT STATED UNCONTROLLED [SNOMED-CT: 594126969] Dr. Colleen Huang, DO 01-15-2017 Back pain [SNOMED-CT: 952036421] Dr. Colleen Huang, DO 11-06-2016 DIABETES WITH RENAL MANIFESTATIONS TYPE II OR UNSPECIFIED TYPE NOT STATED UNCONTROLLED [SNOMED-CT: 938428020] Dr. Colleen Huang, DO 11-06-2016 UNSPECIFIED ESSENTIAL HYPERTENSION [SNOMED-CT: 5622290 0] N/A N/A 11-06-2016 Bronchospasm [SNOMED-CT: 2019460] Dr Joe Huang, DO 09-04-2016 Back pain [SNOMED-CT: 463903972] Dr. Colleen Huang, DO 09-04-2016 Primary atypical interstitial pneumonia [SNOMED-CT: 35 771767] Dr. Colleen Huang, DO 09-04-2016 Back pain [SNOMED-CT: 873193496] Dr. Colleen Huang, DO 07-10-2016 DIABETES WITH RENAL MANIFESTATIONS TYPE II OR UNSPECIFIED TYPE NOT STATED UNCONTROLLED [SNOMED-CT: 501881689] Dr. Colleen Huang, DO 07-10-2016 Back pain [SNOMED-CT: 656348790] Dr. Colleen Huang, DO 05-15-2016 CHRONIC KIDNEY DISEASE STAGE II (MILD) [SNOMED-CT: 431 723312] Dr. Colleen Huang, DO 05-15-2016 DIABETES WITH RENAL MANIFESTATIONS TYPE II OR UNSPECIFIED TYPE NOT STATED UNCONTROLLED [SNOMED-CT: 527380218] Dr. Colleen Huang, DO 05-15-2016 LUMBAGO [SNOMED-CT: 046225816] Jose Angel Huang, DO 05-15-2016 Other specified vaccination [ICD10: Z23] Celestine Huang, DO 05-15-2016 Back pain [SNOMED-CT: 202141683] Dr. Colleen Huang, DO 03-18-2016 DIABETES WITH RENAL MANIFESTATIONS TYPE II OR UNSPECIFIED TYPE NOT STATED UNCONTROLLED [SNOMED-CT: 557207970] Dr. Colleen Huang, DO 03-18-2016 DIABETES WITH RENAL MANIFESTATIONS TYPE II OR UNSPECIFIED TYPE NOT STATED UNCONTROLLED [SNOMED-CT: 233051480] Dr. Colleen Huang, DO 01-22-2016 Exogenous hyperlipidemia [SNOMED-CT: 488411844] Dr. Colleen Huang, DO 01-22-2016 ANXIETY STATE UNSPECIFIED [SNOMED-CT: 922925590] Celestine Huang, DO 01-22-2016 DIABETES WITH RENAL MANIFESTATIONS TYPE II OR UNSPECIFIED TYPE NOT STATED UNCONTROLLED [SNOMED-CT: 288362270] Dr. Colleen Huang, DO 12-15-2015 Otitis externa [SNOMED-CT: 0409166] Celestine Huang, DO 12-15-2015 Impacted cerumen [SNOMED-CT: 21841837] Celestine Huang, DO 12-15-2015 DIABETES WITH RENAL MANIFESTATIONS TYPE II OR UNSPECIFIED TYPE NOT STATED UNCONTROLLED [SNOMED-CT: 023665106] Dr. Colleen Huang, DO 11-17-2015 Back pain [SNOMED-CT: 760005041] Dr. Colleen Huang, DO 11-17-2015 UNSPECIFIED SLEEP APNEA [SNOMED-CT: 44530403] Celestine Huang, DO 11-17-2015 UNSPECIFIED ESSENTIAL HYPERTENSION [SNOMED-CT: 2532372 0] N/A N/A 11-17-2015 ROUTINE GENERAL MEDICAL EXAMINATION AT A HEALTH CARE FACILITY [SNOMED-CT: 497407568] Celestine Huang, DO 09-27-2015 Back pain [SNOMED-CT: 446509598] Dr. Colleen Huang, DO 08-11-2015 Dysuria-frequency syndrome [SNOMED-CT: 3914758] Dr. Colleen Huang, DO 08-11-2015 LUMBAGO [SNOMED-CT: 543384485] Jose Angel Huang, DO 06-19-2015 CLOSED FRACTURE OF LUMBAR VERTEBRA WITHO UT SPINAL [SNOMED-CT: 75550837] Celestine Huang, DO 06-19-2015 DIABETES WITH RENAL MANIFESTATIONS TYPE II OR UNSPECIFIED TYPE NOT STATED UNCONTROLLED [SNOMED-CT: 180088739] Dr. Colleen Huang, DO 06-19-2015 DIABETES WITH RENAL MANIFESTATIONS TYPE II OR UNSPECIFIED TYPE NOT STATED UNCONTROLLED [SNOMED-CT: 077753543] Dr. Colleen Huang, DO 04-26-2015 Back pain [SNOMED-CT: 586866034] Dr. Colleen Huang, DO 04-26-2015 Other constipation [ICD9: 564.09] Dr Joe Huang, DO 01-18-2015 Back pain [SNOMED-CT: 017303642] Dr. Colleen Huang, DO 01-18-2015 DIABETES WITH RENAL MANIFESTATIONS TYPE II OR UNSPECIFIED TYPE NOT STATED UNCONTROLLED [SNOMED-CT: 035560140] Dr. Colleen Huang, DO 11-30-2014 CHRONIC KIDNEY DISEASE STAGE II (MILD) [SNOMED-CT: 431 727216] Dr. Colleen Huang, DO 11-30-2014 UNSPECIFIED ESSENTIAL HYPERTENSION [SNOMED-CT: 3443456 0] N/A N/A 11-30-2014 DIABETES WITH RENAL MANIFESTATIONS TYPE II OR UNSPECIFIED TYPE NOT STATED UNCONTROLLED [SNOMED-CT: 649037135] Dr. Colleen Huang, DO 10-19-2014 CHRONIC KIDNEY DISEASE STAGE II (MILD) [SNOMED-CT: 431 818801] Dr. Colleen Huang, DO 10-19-2014 DIABETES WITH RENAL MANIFESTATIONS TYPE II OR UNSPECIFIED TYPE NOT STATED UNCONTROLLED [SNOMED-CT: 569124153] Dr. Colleen Huang, DO 09-16-2014 DIABETES WITH RENAL MANIFESTATIONS TYPE II OR UNSPECIFIED TYPE NOT STATED UNCONTROLLED [SNOMED-CT: 168410902] Dr. Colleen Huang, DO 09-14-2014 CHRONIC KIDNEY DISEASE STAGE II (MILD) [SNOMED-CT: 431 696702] Dr. Colleen Huang, DO 09-14-2014 ROUTINE GENERAL MEDICAL EXAMINATION AT A HEALTH CARE FACILITY [SNOMED-CT: 002576256] Celestine Huang, DO 08-22-2014 Other specified vaccination [ICD10: Z23] Celestine Huang, DO 08-22-2014 DIABETES MELLITUS WITHOUT MENTION OF COM PLICATION [SNOMED-CT: 078402932] N/A N/A 05-09-2014 DIABETES MELLITUS WITHOUT MENTION OF COM PLICATION [SNOMED-CT: 634450480] Celestine Huang, DO 03-16-2014 Back pain [SNOMED-CT: 721142314] Dr. Colleen Huang, DO 03-16-2014 CONTACT DERMATITIS AND OTHER ECZEMA UNSP ECIFIED CA [SNOMED-CT: 210527811] N/A N/A 03-16-2014 UNSPECIFIED ESSENTIAL HYPERTENSION [SNOMED-CT: 4436007 0] N/A N/A 03-16-2014 DIABETES MELLITUS WITHOUT MENTION OF COM PLICATION [SNOMED-CT: 668218766] Celestine Huang, DO 11-05-2013 Back pain [SNOMED-CT: 609480971] Dr. Colleen Huang, DO 11-05-2013 CLOSED FRACTURE OF LUMBAR VERTEBRA WITHO UT SPINAL [SNOMED-CT: 75349466] Celestine Huang, DO 11-05-2013 ANXIETY STATE UNSPECIFIED [SNOMED-CT: 600858325] Celestine Huang, DO 11-05-2013 DIABETES MELLITUS WITHOUT MENTION OF COM PLICATION [SNOMED-CT: 755577154] Celestine Huang, DO 06-11-2013 UNSPECIFIED ESSENTIAL HYPERTENSION [SNOMED-CT: 5651429 0] N/A N/A 06-11-2013 INSOMNIA UNSPECIFIED [SNOMED-CT: 676035439] Dr. Colleen Huang, DO 06-09-2013 ANXIETY STATE UNSPECIFIED [SNOMED-CT: 357338277] Celestine Huang, DO 06-09-2013 DIABETES MELLITUS WITHOUT MENTION OF COM PLICATION [SNOMED-CT: 638754688] Celestine Huang, DO 02-17-2013 HYPERPLASIA OF PROSTATE UNSPECIFIED WITH OUT URINAR [SNOMED-CT: 715378269] Celestine Huang, DO 02-17-2013 CLOSED FRACTURE OF LUMBAR VERTEBRA WITHO UT SPINAL [SNOMED-CT: 91213658] Celestine Huang, DO 02-17-2013 UNSPECIFIED ESSENTIAL HYPERTENSION [SNOMED-CT: 4409534 0] N/A N/A 02-17-2013 ROUTINE GENERAL MEDICAL EXAMINATION AT A HEALTH CARE FACILITY [SNOMED-CT: 973530710] Celestine Huang, DO 11-02-2012 DIABETES MELLITUS WITHOUT MENTION OF COM PLICATION [SNOMED-CT: 811952565] Celestine Huang, DO 08-28-2012 LUMBAGO [SNOMED-CT: 230007532] Jose Angel cornel Reina Cornejo Ackworth, DO 08-05-2012 DIABETES MELLITUS WITHOUT MENTION OF COM PLICATION [SNOMED-CT: 387635081] Celestine Huang, DO 08-05-2012 UNSPECIFIED ESSENTIAL HYPERTENSION [SNOMED-CT: 5940373 0] N/A N/A 08-05-2012 DIABETES MELLITUS WITHOUT MENTION OF COM PLICATION [SNOMED-CT: 466640240] Celestine Huang, DO 02-26-2012 LUMBAGO [SNOMED-CT: 927305640] Jose Angel unger Reina Huang, DO 02-26-2012 UNSPECIFIED ESSENTIAL HYPERTENSION [SNOMED-CT: 1256268 0] N/A N/A 02-26-2012 DIABETES MELLITUS WITHOUT MENTION OF COM PLICATION [SNOMED-CT: 015840150] Celestine Huang, DO 10-23-2011 LUMBAGO [SNOMED-CT: 955452883] Jose Angel unger Reina Huang, DO 10-23-2011 PAIN IN JOINT INVOLVING SHOULDER REGION [SNOMED-CT: 744994027] Celestine Huang, DO 08-21-2011 DIABETES MELLITUS WITHOUT MENTION OF COM PLICATION [SNOMED-CT: 000172579] Celestine Huang, DO 08-21-2011 HYPERPLASIA OF PROSTATE UNSPECIFIED WITH OUT URINAR [SNOMED-CT: 707507007] Celestine Huang, DO 08-21-2011 UNSPECIFIED ESSENTIAL HYPERTENSION [SNOMED-CT: 5464243 0] N/A N/A 08-21-2011 Other specified vaccination [ICD10: Z23] Celestine Huang, DO 08-21-2011 PAIN IN JOINT INVOLVING SHOULDER REGION [SNOMED-CT: 627602195] Celestine Huang, DO 06-19-2011 DIABETES MELLITUS WITHOUT MENTION OF COM PLICATION [SNOMED-CT: 683803643] Celestine Huang, DO 06-19-2011 HYPERPLASIA OF PROSTATE UNSPECIFIED WITH OUT URINAR [SNOMED-CT: 554744849] Celestine Huang, DO 06-19-2011 UNSPECIFIED ESSENTIAL HYPERTENSION [SNOMED-CT: 0916212 0] N/A N/A 06-19-2011 Other specified vaccination [ICD10: Z23] Celestine Huang, DO 06-19-2011 PAIN IN JOINT INVOLVING SHOULDER REGION [SNOMED-CT: 790924431] Celestine Huang, DO 03-08-2011 DIABETES MELLITUS WITHOUT MENTION OF COM PLICATION [SNOMED-CT: 392717558] Celestine Huang, DO 03-08-2011 HYPERPLASIA OF PROSTATE UNSPECIFIED WITH OUT URINAR [SNOMED-CT: 875828828] Celestine Huang, DO 03-08-2011 UNSPECIFIED ESSENTIAL HYPERTENSION [SNOMED-CT: 7656205 0] N/A N/A 03-08-2011 PAIN IN JOINT INVOLVING SHOULDER REGION [SNOMED-CT: 580480733] Celestine Huang, DO 12-26-2010 DIABETES MELLITUS WITHOUT MENTION OF COM PLICATION [SNOMED-CT: 735261729] Celestine Huang, DO 12-26-2010 HYPERPLASIA OF PROSTATE UNSPECIFIED WITH OUT URINAR [SNOMED-CT: 813224308] Celestine Huang, DO 12-26-2010 UNSPECIFIED ESSENTIAL HYPERTENSION [SNOMED-CT: 6622488 0] N/A N/A 12-26-2010 Back pain [SNOMED-CT: 529249159] Dr. Colleen Huang, DO 12-14-2010 CLOSED FRACTURE OF LUMBAR VERTEBRA WITHO UT SPINAL [SNOMED-CT: 48105978] Celestine Huang, DO 12-14-2010 DIABETES MELLITUS WITHOUT MENTION OF COM PLICATION [SNOMED-CT: 048032595] Celestine Huang, DO 09-24-2010 CLOSED FRACTURE OF LUMBAR VERTEBRA WITHO UT SPINAL [SNOMED-CT: 40469918] Celestine Huang, DO 09-24-2010 UNSPECIFIED ESSENTIAL HYPERTENSION [SNOMED-CT: 1674094 0] N/A N/A 09-24-2010 DIABETES MELLITUS WITHOUT MENTION OF COM PLICATION [SNOMED-CT: 092182821] Celestine Huang, DO 08-29-2010 CLOSED FRACTURE OF LUMBAR VERTEBRA WITHO UT SPINAL [SNOMED-CT: 97159188] Celestine Huang, DO 08-29-2010 UNSPECIFIED ESSENTIAL HYPERTENSION [SNOMED-CT: 1567129 0] N/A N/A 08-29-2010 DIABETES MELLITUS WITHOUT MENTION OF COM PLICATION [SNOMED-CT: 448395770] Celestine Huang, DO 06-27-2010 CLOSED FRACTURE OF LUMBAR VERTEBRA WITHO UT SPINAL [SNOMED-CT: 45195819] Celestine Huang, DO 06-27-2010 UNSPECIFIED ESSENTIAL HYPERTENSION [SNOMED-CT: 1077694 0] N/A N/A 06-27-2010 CLOSED FRACTURE OF LUMBAR VERTEBRA WITHO UT SPINAL [SNOMED-CT: 52732559] Celestine Huang, DO 06-13-2010 DIABETES MELLITUS WITHOUT MENTION OF COM PLICATION [SNOMED-CT: 782904307] Celestine Huang, DO 03-23-2010 IMPOTENCE OF ORGANIC ORIGIN [SNOMED-CT: 447547031] N/A N/A 03-23-2010 UNSPECIFIED ESSENTIAL HYPERTENSION [SNOMED-CT: 7856222 0] N/A N/A 03-23-2010 UNSPECIFIED CATARACT [SNOMED-CT: 637766102] Celestine Huang, DO 01-26-2010 DIABETES MELLITUS WITHOUT MENTION OF COM PLICATION [SNOMED-CT: 410428626] Celestine Huang, DO 01-26-2010 UNSPECIFIED SLEEP APNEA [SNOMED-CT: 48951833] Celestine Huang, DO 01-26-2010 UNSPECIFIED ESSENTIAL HYPERTENSION [SNOMED-CT: 8535224 0] N/A N/A 01-26-2010 UNSPECIFIED DISORDER OF SKIN AND SUBCUTA NEOUS TISS [SNOMED-CT: 40704050] Celestine Huang, DO 01-26-2010 IMPOTENCE OF ORGANIC ORIGIN [SNOMED-CT: 015803977] N/A N/A 01-26-2010 DIABETES MELLITUS WITHOUT MENTION OF COM PLICATION [SNOMED-CT: 637205303] Celestine Huang, DO 12-20-2009 UNSPECIFIED ESSENTIAL HYPERTENSION [SNOMED-CT: 5897473 0] N/A N/A 12-20-2009 HYPERPLASIA OF PROSTATE UNSPECIFIED WITH OUT URINAR [SNOMED-CT: 640489505] Celestine Huang, DO 12-20-2009 UNSPECIFIED DISORDER OF SKIN AND SUBCUTA NEOUS TISS [SNOMED-CT: 15390193] Celestine Huang, DO 12-20-2009 IMPOTENCE OF ORGANIC ORIGIN [SNOMED-CT: 169317981] N/A N/A 12-20-2009 DIABETES MELLITUS WITHOUT MENTION OF COM PLICATION [SNOMED-CT: 226795680] N/A N/A 09-18-2009 UNSPECIFIED ESSENTIAL HYPERTENSION [SNOMED-CT: 6183010 0] N/A N/A 09-18-2009 IMPOTENCE OF ORGANIC ORIGIN [SNOMED-CT: 886637989] N/A N/A 09-18-2009 DIABETES MELLITUS WITHOUT MENTION OF COM PLICATION [SNOMED-CT: 050271109] N/A N/A 06-28-2009 DIABETES MELLITUS WITHOUT MENTION OF COM PLICATION [SNOMED-CT: 160272822] N/A N/A 06-16-2009 UNSPECIFIED ESSENTIAL HYPERTENSION [SNOMED-CT: 5321815 0] N/A N/A 06-16-2009 CONTACT DERMATITIS AND OTHER ECZEMA UNSP ECIFIED CA [SNOMED-CT: 008524815] N/A N/A 06-16-2009 ALLERGIES AND ADVERSE REACTIONS Substance Reaction Sever ity Status No Known Drug Allergies (RxNorm: Unknown) -- -- Active FUNCTIONAL STATUS There is no cognitive and functional status saved for this patient. IMMUNIZATIONS Vaccine Date Status Flucelvax Quadrivalent (171) 019 2:17:14 PM Completed Fluvirin (141) 05/15/2016 9:09:18 AM Completed Influenza vaccine, unknown (88) 06/01 8:43:22 AM Completed Fluvirin (141) 08/22/2014 8:43:50 AM Completed Influenza vaccine, unknown (88) 06/01 9:02:52 AM Completed Influenza vaccine, unknown (88) 08/05 12:02:32 PM Completed FluLaval (141) 06/19/2011 9:39:29 AM Completed MEDICAL EQUIPMENT Patient has no history of implanted devices. MEDICATIONS Medication Generic Name Instructions Dosage Start Date Status OneTouch Verio In Vitro Strip Unknown use as directed qid ac and hs for sliding scale insulin dose 360 08/28/2020 Active atorvastatin 10 mg oral tablet, [RxNorm: 232934] atorvastatin one po hs daily 0 08/14/2020 Active metFORMIN 500 mg oral tablet, [RxNorm: 709036] metFORMIN one po bid 08/14/2020 Active HumaLOG 100 units/mL injectable solution, [RxNorm: 865 098] insulin lispro 6 units this am for sugar of 220....he h as a sliding scale 0 08/14/2020 Active Lotrisone 1%-0.05% topical cream, [RxNorm: 957973] clotrimazole-betamethasone dipropionate topic use as directed apply to genital area bid 30 05/30/2020 Active sertraline 100 mg oral tablet, [RxNorm: 649352] sertraline one po daily 0 9 Active lisinopril 10 mg oral tablet, [RxNorm: 639816] lisinopril one po daily 90 08/13/20 19 Active Linzess 145 mcg oral capsule, [RxNorm: 5218023] linaclotide one po daily prn constipation 90 08/13/2019 Active BD Pen Needle Mini U/F Unknown use as directed for lantus injection 200 2018 Active Lantus Solostar Pen 100 units/mL subcuta neous solution, [RxNorm: 337512] insulin glargine 30 units qpm 0 12/18/2018 Active ProAir HFA 90 mcg/inh inhalation aerosol, [RxNorm: 745 752] albuterol two puffs qid prn wheeze 0 06/02/2017 Active Cortisporin-TC otic suspension, [RxNorm: 623859] colistin/neomycin/thonzonium/HC otic 4 gtts into left EAC bid 5 12/15/2015 Active aspirin 81 mg oral tablet, [RxNorm: 283599] aspirin one daily 1 11/17/2015 Active INSURANCE PROVIDERS Payer Name Policy Type P olicy ID Covered [employer] ID Policy [employer] Health Insurance [id number] [facility] UMR 20 [id number] THIAGO MENDOZA ASSESSMENTS # Aortic stenosis (I35.0): moderate PROBLEMS Problem Problem Status D ate Started Date Resolved Date Inactivated CLOSED FRACTURE OF LUMBAR VERTEBRA WITHO UT SPINAL [SNOMED-CT: 37716747] Active 06-13-2010 NA NA Type II diabetes mellitus poorly control led [SNOMED-CT: 464865265] Active 03-22-2020 NA NA Allergic contact dermatitis of male melissa isamar [SNOMED-CT: 876760714] Active 03-07-2017 NA NA Other genital problems [ICD10: R68.89] Active 03-07-2017 NA NA ROUTINE GENERAL MEDICAL EXAMINATION AT A HEALTH CARE FACILITY [SNOMED-CT: 640397782] Active 11-02-2012 NA NA Other specified vaccination [ICD10: Z23] Active 05-15-2016 NA NA DIABETES MELLITUS WITHOUT MENTION OF COM PLICATION [SNOMED-CT: 374877578] Active 12-20-2009 NA NA HYPERPLASIA OF PROSTATE UNSPECIFIED WITH OUT URINAR [SNOMED-CT: 821953531] Active 12-20-2009 NA NA UNSPECIFIED DISORDER OF SKIN AND SUBCUTA NEOUS TISS [SNOMED-CT: 34372224] Active 12-20-2009 NA NA Balanitis [SNOMED-CT: 74206123] Active 05-30-2020 NA NA Bronchospasm [SNOMED-CT: 9331614] Active 09-04-2016 NA NA Generalised itching [SNOMED-CT: 767263112] Active 08-15-2020 NA NA Other hyperlipidemia [ICD10: E78.49] Activ e 07-20-2018 NA NA Penile cellulitis/abscess/boil [SNOMED-CT: 865938020] Active 01-15-2017 NA NA Other constipation [ICD9: 564.09] Active 01-18-2015 NA NA UNSPECIFIED CATARACT [SNOMED-CT: 781646030] Active 01-26-2010 NA NA UNSPECIFIED SLEEP APNEA [SNOMED-CT: 90241182] Active 01-26-2010 NA NA Chronic kidney disease [SNOMED-CT: 638189656] Active 08-23-2020 NA NA Unspecified injury of right shoulder and upper arm [ICD10: S49.91XA] Active 09-26-2020 NA NA Acute pancreatitis [SNOMED-CT: 178724842] Active 08-14-2020 NA NA Contusion of lower back and pelvis, init ial encounter [ICD10: S30.0XXA] Active 12-14-2018 NA NA Exogenous hyperlipidemia [SNOMED-CT: 684545799] Active 09-27-2015 NA NA Otitis externa [SNOMED-CT: 6706856] Active 12-15-2015 NA NA Impacted cerumen [SNOMED-CT: 28100692] Active 12-15-2015 NA NA INSOMNIA UNSPECIFIED [SNOMED-CT: 738480772] Active 06-09-2013 NA NA ANXIETY STATE UNSPECIFIED [SNOMED-CT: 889023725] Active 06-09-2013 NA NA NEED FOR PROPHYLACTIC VACCINATION AND IN OCULATION AGAINST INFLUENZA [SNOMED-CT: 521336938] Active 06-19-2011 NA NA Primary atypical interstitial pneumonia [SNOMED-CT: 35 422687] Active 09-04-2016 NA NA Viral gastroenteritis [SNOMED-CT: 558128204] Active 12-26-2017 NA NA Cat bite - wound [SNOMED-CT: 572906812] Active 12-26-2017 NA NA Cat bite [SNOMED-CT: 279730570] Active 12-26-2017 NA NA Cat bite [SNOMED-CT: 564203845] Active 12-26-2017 NA NA Emotional stress [SNOMED-CT: 823406323] Active 08-30-2020 NA NA Nausea and vomiting [SNOMED-CT: 82727784] Active 09-15-2020 NA NA Heart murmur [SNOMED-CT: 28928918] Active 10-04-2020 NA NA BACKACHE UNSPECIFIED [SNOMED-CT: 490833181] Active 12-14-2010 NA NA PAIN IN JOINT INVOLVING SHOULDER REGION [SNOMED-CT: 257435627] Active 12-26-2010 NA NA Cholelithiasis AND cholecystitis with ob struction [SNOMED-CT: 07313923] Active 10-02-2020 NA NA 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] Active 10-02-2020 NA NA Pancreatitis [SNOMED-CT: 16072977] Active 10-02-2020 NA NA Heart murmur, undetermined whether funct ional or organic [SNOMED-CT: 174930220] Active 10-02-2020 NA NA DIABETES MELLITUS WITHOUT MENTION OF COM PLICATION [SNOMED-CT: 733906588] Active 05-19-2009 NA NA UNSPECIFIED ESSENTIAL HYPERTENSION [SNOMED-CT: 5407869 0] Active 05-19-2009 NA NA CONTACT DERMATITIS AND OTHER ECZEMA UNSP ECIFIED CA [SNOMED-CT: 623053814] Active 05-19-2009 NA NA Acute rhinosinusitis [SNOMED-CT: 401733867] Active 09-08-2019 NA NA Upper respiratory infection [SNOMED-CT: 32640988] Active 09-08-2019 NA NA LUMBAGO [SNOMED-CT: 980120463] Active 10-23-2011 NA NA SPRAIN OF UNSPECIFIED SITE OF SHOULDER A ND UPPER A [SNOMED-CT: 687391351] Active 06-28-2009 NA NA Calcific aortic stenosis - bicuspid valv e [SNOMED-CT: 956391283] Active 10-02-2020 NA NA Calcific aortic stenosis - bicuspid valv e [SNOMED-CT: 813717719] Active 10-02-2020 NA NA Aortic stenosis [SNOMED-CT: 87901626] Active 10-11-2020 NA NA Back pain [SNOMED-CT: 103342434] Active 08-11-2015 NA NA Dysuria-frequency syndrome [SNOMED-CT: 0948337] Active 08-11-2015 NA NA Thyroiditis [SNOMED-CT: 33163216] Active 08-23-2020 NA NA Arthropathy of left shoulder [SNOMED-CT: 1929783452566 9103] Active 06-03-2018 NA NA Pain in left foot [SNOMED-CT: 577133674429418] Active 06-18-2019 NA NA DIABETES WITH RENAL MANIFESTATIONS TYPE II OR UNSPECIFIED TYPE NOT STATED UNCONTROLLED [SNOMED-CT: 334731399] Active 09-14-2014 NA NA CHRONIC KIDNEY DISEASE STAGE II (MILD) [SNOMED-CT: 431 160486] Active 09-14-2014 NA NA IMPOTENCE OF ORGANIC ORIGIN [SNOMED-CT: 799585832] Active 09-18-2009 NA NA PROCEDURES Procedure Date CPT Code Procedure 10/11/2020 12:23:37 [id number] Telephone evaluation and management service by a physician or other qualified health hearing care practitioner who may report evaluation and management services provided to an established patient, parent, or guardian not originating from a related E/M service provided within the previous 7 days nor leading to an E/M service or procedure within the next 24 hours or soonest available appointment; 11-20 minutes of medical discussion 10/04/2020 14:27:34 [id number] Telephone evaluation and management service by a physician or other qualified health hearing care practitioner who may report evaluation and management services provided to an established patient, parent, or guardian not originating from a related E/M service provided within the previous 7 days nor leading to an E/M service or procedure within the next 24 hours or soonest available appointment; 11-20 minutes of medical discussion 10/02/2020 08:16:17 95665 Office or other outpatient visit for the evaluation and management of an established patient, which requires at least 2 of these 3 carlisle components: A comprehensive history; A comprehensive examination; Medical decision making of high complexity. Counseling and/or coordination of care with other providers or agencies are provided consistent with the nature of the problem(s) and the patient's and/or family's needs. Usually, the presenting problem(s) are of moderate to high severity. Physicians typically spend 40 minutes ccdo-jp-rryv with the patient and/or family. 10/02/2020 08:16:17 66934 Hemoglobin; glycosylated (A1C) by device cleared by FDA for home use 10/02/2020 08:16:17 3045F Most recent hemoglobin A1c (HbA1c) level 7.0-9.0% (DM) 10/02/2020 08:16:17 G8427 Eligible clinician attests to documenting in the medical record they obtained, updated, or reviewed the patient's current medications 09/27/2020 13:05:10 [id number] Telephone evaluation and management service by a physician or other qualified health hearing care practitioner who may report evaluation and management services provided to an established patient, parent, or guardian not originating from a related E/M service provided within the previous 7 days nor leading to an E/M service or procedure within the next 24 hours or soonest available appointment; 5-10 minutes of medical discussion 09/26/2020 10:41:47 [id number] Telephone evaluation and management service by a physician or other qualified health hearing care practitioner who may report evaluation and management services provided to an established patient, parent, or guardian not originating from a related E/M service provided within the previous 7 days nor leading to an E/M service or procedure within the next 24 hours or soonest available appointment; 11-20 minutes of medical discussion 09/15/2020 12:51:28 49536 Telephone evaluation and management service by a physician or other qualified health hearing care practitioner who may report evaluation and management services provided to an established patient, parent, or guardian not originating from a related E/M service provided within the previous 7 days nor leading to an E/M service or procedure within the next 24 hours or soonest available appointment; 5-10 minutes of medical discussion 08/30/2020 08:24:51 42015 Telephone evaluation and management service by a physician or other qualified health hearing care practitioner who may report evaluation and management services provided to an established patient, parent, or guardian not originating from a related E/M service provided within the previous 7 days nor leading to an E/M service or procedure within the next 24 hours or soonest available appointment; 5-10 minutes of medical discussion 08/23/2020 09:37:34 88293 Telephone evaluation and management service by a physician or other qualified health hearing care practitioner who may report evaluation and management services provided to an established patient, parent, or guardian not originating from a related E/M service provided within the previous 7 days nor leading to an E/M service or procedure within the next 24 hours or soonest available appointment; 5-10 minutes of medical discussion 08/15/2020 08:57:07 43323 Office or other outpatient visit for the evaluation and management of an established patient, which requires at least 2 of these 3 carlisle components: An expanded problem focused history; An expanded problem focused examination; Medical decision making of low complexity. Counseling and coordination of care with other providers or agencies are provided consistent with the nature of the problem(s) and the patient's and/or family's needs. Usually, the presenting problem(s) are of low to moderate severity. Physicians typically spend 15 minutes wjsl-pq-ftli with the patient and/or family. 08/14/2020 09:42:50 89340 Transitional Care Management Services with the following required elements: Communication (direct contact, telephone, electronic) with the patient and/or caregiver within 2 business days of discharge Medical decision making of high complexity during the service period Imzb-bt-kcrl visit, within 7 calendar days of discharge 08/14/2020 09:42:50 G8427 Eligible clinician attests to documenting in the medical record they obtained, updated, or reviewed the patient's current medications 05/30/2020 13:09:49 41081 Office or other outpatient visit for the evaluation and management of an established patient, which requires at least 2 of these 3 carlisle components: An expanded problem focused history; An expanded problem focused examination; Medical decision making of low complexity. Counseling and coordination of care with other providers or agencies are provided consistent with the nature of the problem(s) and the patient's and/or family's needs. Usually, the presenting problem(s) are of low to moderate severity. Physicians typically spend 15 minutes vlop-wv-hwwn with the patient and/or family. 03/22/2020 09:10:00 12797 Office or other outpatient visit for the evaluation and management of an established patient, which requires at least 2 of these 3 carlisle components: An expanded problem focused history; An expanded problem focused examination; Medical decision making of low complexity. Counseling and coordination of care with other providers or agencies are provided consistent with the nature of the problem(s) and the patient's and/or family's needs. Usually, the presenting problem(s) are of low to moderate severity. Physicians typically spend 15 minutes xgyw-dw-vwmw with the patient and/or family. 03/15/2020 12:24:05 10604 Office or other outpatient visit for the evaluation and management of an established patient, that may not require the presence of a physician. Usually, the presenting problem(s) are minimal. Typically, 5 minutes are spent performing or supervising these services. 03/15/2020 12:24:05 66429 Hemoglobin; glycosylated (A1C) by device cleared by FDA for home use 03/15/2020 12:24:05 3046F Most recent hemoglobin A1c level greater than 9.0% (DM) 09/08/2019 08:19:29 27334 Office or other outpatient visit for the evaluation and management of an established patient, which requires at least 2 of these 3 carlisle components: A detailed history; A detailed examination; Medical decision making of moderate complexity. Counseling and/or coordination of care with other providers or agencies are provided consistent with the nature of the problem(s) and the patient's and/or family's n eeds. Usually, the presenting problem(s) are of moderate to high severity. Physicians typically spend 25 minutes ctov-ou-ornf with the patient and/or family. 09/08/2019 08:19:29 59392 Hemoglobin; glycosylated (A1C) by device cleared by FDA for home use 09/08/2019 08:19:29 3045F Most recent hemoglobin A1c (HbA1c) level 7.0-9.0% (DM) 08/13/2019 13:55:58 G0439 ANNUAL WELLNESS VISIT, SUBSEQUENT 08/13/2019 13:55:58 44972 Hemoglobin; glycosylated (A1C) by device cleared by FDA for home use 08/13/2019 13:55:58 71106 Influenza virus vaccine, quadrivalent (ccIIV4), derived from cell cultures, subunit, preservative and antibiotic free, 0.5 mL dosage, for intramuscular use 08/13/2019 13:55:58 G0008 ADMINISTRATION OF FLU VACCINE (V04.81) 08/13/2019 13:55:58 Dilated retinal eye exam with interpretation by an guillotine trimmer or armature winder repair documented and reviewed (DM) 08/13/2019 13:55:58 G8427 Eligible clinician attests to documenting in the medical record they obtained, updated, or reviewed the patient's current medications 08/13/2019 13:55:58 3017F Colorectal cancer screening results documented and reviewed (PV) 08/13/2019 13:55:58 1036F Current tobacco non-user (CAD, CAP, COPD, PV) (DM) (IBD) 06/18/2019 09:23:34 82197 Office or other outpatient visit for the evaluation and management of an established patient, which requires at least 2 of these 3 carlisle components: A detailed history; A detailed examination; Medical decision making of moderate complexity. Counseling and/or coordination of care with other providers or agencies are provided consistent with the nature of the problem(s) and the patient's and/or family's n eeds. Usually, the presenting problem(s) are of moderate to high severity. Physicians typically spend 25 minutes uhep-bx-terg with the patient and/or family. 06/18/2019 09:23:34 82293 Hemoglobin; glycosylated (A1C) by device cleared by FDA for home use 06/18/2019 09:23:34 3045F Most recent hemoglobin A1c (HbA1c) level 7.0-9.0% (DM) 03/24/2019 08:14:04 00039 Office or other outpatient visit for the evaluation and management of an established patient, which requires at least 2 of these 3 carlisle components: A detailed history; A detailed examination; Medical decision making of moderate complexity. Counseling and/or coordination of care with other providers or agencies are provided consistent with the nature of the problem(s) and the patient's and/or family's n eeds. Usually, the presenting problem(s) are of moderate to high severity. Physicians typically spend 25 minutes yukq-fu-xguo with the patient and/or family. 03/24/2019 08:14:04 16073 Hemoglobin; glycosylated (A1C) by device cleared by FDA for home use 03/24/2019 08:14:04 3045F Most recent hemoglobin A1c (HbA1c) level 7.0-9.0% (DM) 03/24/2019 08:14:04 G8427 Eligible clinician attests to documenting in the medical record they obtained, updated, or reviewed the patient's current medications 03/23/2019 11:45:37 3017F Colorectal cancer screening results documented and reviewed (PV) 12/14/2018 08:01:40 44366 Office or other outpatient visit for the evaluation and management of an established patient, which requires at least 2 of these 3 carlisle components: A detailed history; A detailed examination; Medical decision making of moderate complexity. Counseling and/or coordination of care with other providers or agencies are provided consistent with the nature of the problem(s) and the patient's and/or family's n eeds. Usually, the presenting problem(s) are of moderate to high severity. Physicians typically spend 25 minutes ihue-bb-pwdi with the patient and/or family. 12/14/2018 08:01:40 21025 Collection of venous blood by venipuncture 12/14/2018 08:01:40 14556 Hemoglobin; glycosylated (A1C) by device cleared by FDA for home use 12/14/2018 08:01:40 3046F Most recent hemoglobin A1c level greater than 9.0% (DM) 12/14/2018 08:01:40 G8427 Eligible clinician attests to documenting in the medical record they obtained, updated, or reviewed the patient's current medications 09/07/2018 08:17:34 11737 Office or other outpatient visit for the evaluation and management of an established patient, that may not require the presence of a physician. Usually, the presenting problem(s) are minimal. Typically, 5 minutes are spent performing or supervising these services. 09/07/2018 08:17:34 63373 Hemoglobin; glycosylated (A1C) by device cleared by FDA for home use 09/07/2018 08:17:34 3044F Most recent hemoglobin A1c (HbA1c) level less than 7.0% (DM) 07/20/2018 13:54:05 21697 Periodic comprehensive preventive medicine reevaluation and management of an individual including an age and gender appropriate history, examination, counseling/anticipatory guidance/risk factor reduction interventions, and the ordering of laboratory/diagnostic procedures, established patient; 65 years and older 07/20/2018 13:54:05 72748 Hemoglobin; glycosylated (A1C) by device cleared by FDA for home use 07/20/2018 13:54:05 G8427 Eligible clinician attests to documenting in the medical record they obtained, updated, or reviewed the patient's current medications 07/20/2018 13:54:05 1036F Current tobacco non-user (CAD, CAP, COPD, PV) (DM) (IBD) 07/20/2018 13:54:05 3044F Most recent hemoglobin A1c (HbA1c) level less than 7.0% (DM) 06/03/2018 08:23:02 15065 Office or other outpatient visit for the evaluation and management of an established patient, which requires at least 2 of these 3 carlisle components: A detailed history; A detailed examination; Medical decision making of moderate complexity. Counseling and/or coordination of care with other providers or agencies are provided consistent with the nature of the problem(s) and the patient's and/or family's n eeds. Usually, the presenting problem(s) are of moderate to high severity. Physicians typically spend 25 minutes egff-ky-nnuu with the patient and/or family. 06/03/2018 08:23:02 11949 Hemoglobin; glycosylated (A1C) by device cleared by FDA for home use 06/03/2018 08:23:02 3045F Most recent hemoglobin A1c (HbA1c) level 7.0-9.0% (DM) 03/27/2018 08:56:44 61456 Office or other outpatient visit for the evaluation and management of an established patient, which requires at least 2 of these 3 carlisle components: An expanded problem focused history; An expanded problem focused examination; Medical decision making of low complexity. Counseling and coordination of care with other providers or agencies are provided consistent with the nature of the problem(s) and the patient's and/or family's needs. Usually, the presenting problem(s) are of low to moderate severity. Physicians typically spend 15 minutes gdpg-pv-nqrs with the patient and/or family. 03/27/2018 08:56:44 3045F Most recent hemoglobin A1c (HbA1c) level 7.0-9.0% (DM) 03/27/2018 08:56:44 34439 Hemoglobin; glycosylated (A1C) by device cleared by FDA for home use 03/27/2018 08:56:44 [id number] Eligible clinician attests to documenting in the medical record they obtained, updated, or reviewed the patient's current medications 12/26/2017 08:55:27 45613 Office or other outpatient visit for the evaluation and management of an established patient, which requires at least 2 of these 3 carlisle components: A detailed history; A detailed examination; Medical decision making of moderate complexity. Counseling and/or coordination of care with other providers or agencies are provided consistent with the nature of the problem(s) and the patient's and/or family's n eeds. Usually, the presenting problem(s) are of moderate to high severity. Physicians typically spend 25 minutes fxho-nf-tpoi with the patient and/or family. 12/26/2017 08:55:27 3045F Most recent hemoglobin A1c (HbA1c) level 7.0-9.0% (DM) 12/26/2017 08:55:27 09391 Hemoglobin; glycosylated (A1C) by device cleared by FDA for home use 12/26/2017 08:55:27 1036F Current tobacco non-user (CAD, CAP, COPD, PV) (DM) (IBD) 12/26/2017 08:55:27 G8427 Eligible clinician attests to documenting in the medical record they obtained, updated, or reviewed the patient's current medications 12/26/2017 08:55:27 2021F Dilated retinal eye exam with interpretation by an guillotine trimmer or armature winder repair documented and reviewed (DM) 09/24/2017 08:27:29 37936 Office or other outpatient visit for the evaluation and management of an established patient, which requires at least 2 of these 3 carlisle components: A detailed history; A detailed examination; Medical decision making of moderate complexity. Counseling and/or coordination of care with other providers or agencies are provided consistent with the nature of the problem(s) and the patient's and/or family's n eeds. Usually, the presenting problem(s) are of moderate to high severity. Physicians typically spend 25 minutes vtcu-hd-eync with the patient and/or family. 09/24/2017 08:27:29 79197 Hemoglobin; glycosylated (A1C) by device cleared by FDA for home use 09/24/2017 08:27:29 3045F Most recent hemoglobin A1c (HbA1c) level 7.0-9.0% (DM) 09/24/2017 08:27:29 1036F Current tobacco non-user (CAD, CAP, COPD, PV) (DM) (IBD) 06/02/2017 08:22:37 31930 Periodic comprehensive preventive medicine reevaluation and management of an individual including an age and gender appropriate history, examination, counseling/anticipatory guidance/risk factor reduction interventions, and the ordering of laboratory/diagnostic procedures, established patient; 40-64 years 06/02/2017 08:22:37 3045F Most recent hemoglobin A1c (HbA1c) level 7.0-9.0% (DM) 06/02/2017 08:22:37 G8427 Eligible clinician attests to documenting in the medical record they obtained, updated, or reviewed the patient's current medications 06/02/2017 08:22:37 1036F Current tobacco non-user (CAD, CAP, COPD, PV) (DM) (IBD) 06/02/2017 08:22:37 13086 Hemoglobin; glycosylated (A1C) by device cleared by FDA for home use 03/07/2017 09:18:02 20388 Office or other outpatient visit for the evaluation and management of an established patient, which requires at least 2 of these 3 carlisle components: A detailed history; A detailed examination; Medical decision making of moderate complexity. Counseling and/or coordination of care with other providers or agencies are provided consistent with the nature of the problem(s) and the patient's and/or family's n eeds. Usually, the presenting problem(s) are of moderate to high severity. Physicians typically spend 25 minutes fxcb-bq-bisg with the patient and/or family. 03/07/2017 09:18:02 35371 Hemoglobin; glycosylated (A1C) by device cleared by FDA for home use 01/15/2017 08:13:41 39176 Office or other outpatient visit for the evaluation and management of an established patient, which requires at least 2 of these 3 carlisle components: A detailed history; A detailed examination; Medical decision making of moderate complexity. Counseling and/or coordination of care with other providers or agencies are provided consistent with the nature of the problem(s) and the patient's and/or family's n eeds. Usually, the presenting problem(s) are of moderate to high severity. Physicians typically spend 25 minutes zgyy-ly-qbsa with the patient and/or family. 11/11/2016 09:37:13 38556 Hemoglobin; glycosylated (A1C) by device cleared by FDA for home use 11/06/2016 08:26:32 21081 Office or other outpatient visit for the evaluation and management of an established patient, which requires at least 2 of these 3 carlisle components: An expanded problem focused history; An expanded problem focused examination; Medical decision making of low complexity. Counseling and coordination of care with other providers or agencies are provided consistent with the nature of the problem(s) and the patient's and/or family's needs. Usually, the presenting problem(s) are of low to moderate severity. Physicians typically spend 15 minutes okeu-ej-rplk with the patient and/or family. 09/04/2016 09:23:52 18743 Office or other outpatient visit for the evaluation and management of an established patient, which requires at least 2 of these 3 carlisle components: An expanded problem focused history; An expanded problem focused examination; Medical decision making of low complexity. Counseling and coordination of care with other providers or agencies are provided consistent with the nature of the problem(s) and the patient's and/or family's needs. Usually, the presenting problem(s) are of low to moderate severity. Physicians typically spend 15 minutes esdv-sj-hnqc with the patient and/or family. 07/10/2016 08:21:01 36218 Office or other outpatient visit for the evaluation and management of an established patient, which requires at least 2 of these 3 carlisle components: A detailed history; A detailed examination; Medical decision making of moderate complexity. Counseling and/or coordination of care with other providers or agencies are provided consistent with the nature of the problem(s) and the patient's and/or family's n eeds. Usually, the presenting problem(s) are of moderate to high severity. Physicians typically spend 25 minutes brwh-bu-cljk with the patient and/or family. 07/10/2016 08:21:01 50835 Hemoglobin; glycosylated (A1C) by device cleared by FDA for home use 05/15/2016 08:27:09 60142 Office or other outpatient visit for the evaluation and management of an established patient, which requires at least 2 of these 3 carlisle components: An expanded problem focused history; An expanded problem focused examination; Medical decision making of low complexity. Counseling and coordination of care with other providers or agencies are provided consistent with the nature of the problem(s) and the patient's and/or family's needs. Usually, the presenting problem(s) are of low to moderate severity. Physicians typically spend 15 minutes rbap-oq-jkop with the patient and/or family. 05/15/2016 08:27:09 57677 Hemoglobin; glycosylated (A1C) by device cleared by FDA for home use 05/15/2016 08:27:09 G0008 ADMINISTRATION OF FLU VACCINE (V04.81) 05/15/2016 08:27:09 Q2037 FLUVRIN 03/18/2016 08:09:18 87796 Office or other outpatient visit for the evaluation and management of an established patient, which requires at least 2 of these 3 carlisle components: A detailed history; A detailed examination; Medical decision making of moderate complexity. Counseling and/or coordination of care with other providers or agencies are provided consistent with the nature of the problem(s) and the patient's and/or family's n eeds. Usually, the presenting problem(s) are of moderate to high severity. Physicians typically spend 25 minutes bdsl-jm-xfuh with the patient and/or family. 01/22/2016 08:23:52 01701 Collection of venous blood by venipuncture 01/22/2016 08:23:52 15769 Office or other outpatient visit for the evaluation and management of an established patient, which requires at least 2 of these 3 carlisle components: A detailed history; A detailed examination; Medical decision making of moderate complexity. Counseling and/or coordination of care with other providers or agencies are provided consistent with the nature of the problem(s) and the patient's and/or family's n eeds. Usually, the presenting problem(s) are of moderate to high severity. Physicians typically spend 25 minutes kwga-hv-ajrl with the patient and/or family. 12/15/2015 12:17:35 35701 Removal impacted cerumen (separate procedure), 1 or both ears 12/15/2015 12:17:35 74726 Office or other outpatient visit for the evaluation and management of an established patient, which requires at least 2 of these 3 carlisle components: An expanded problem focused history; An expanded problem focused examination; Medical decision making of low complexity. Counseling and coordination of care with other providers or agencies are provided consistent with the nature of the problem(s) and the patient's and/or family's needs. Usually, the presenting problem(s) are of low to moderate severity. Physicians typically spend 15 minutes kwiv-wh-spsu with the patient and/or family. 11/17/2015 08:15:21 [id number] Collection of venous blood by venipuncture 11/17/2015 08:15:21 79411 Office or other outpatient visit for the evaluation and management of an established patient, which requires at least 2 of these 3 carlisle components: A comprehensive history; A comprehensive examination; Medical decision making of high complexity. Counseling and/or coordination of care with other providers or agencies are provided consistent with the nature of the problem(s) and the patient's and/or family's needs. Usually, the presenting problem(s) are of moderate to high severity. Physicians typically spend 40 minutes ubik-jo-pdet with the patient and/or family. 11/17/2015 08:15:21 79549 Hemoglobin; glycosylated (A1C) by device cleared by FDA for home use 09/27/2015 08:29:20 41005 Periodic comprehensive preventive medicine reevaluation and management of an individual including an age and gender appropriate history, examination, counseling/anticipatory guidance/risk factor reduction interventions, and the ordering of laboratory/diagnostic procedures, established patient; 40-64 years 09/27/2015 08:29:20 91603 Collection of venous blood by venipuncture 09/27/2015 08:29:20 46487 Hemoglobin; glycosylated (A1C) by device cleared by FDA for home use 08/11/2015 08:14:29 73434 Office or other outpatient visit for the evaluation and management of an established patient, which requires at least 2 of these 3 carlisle components: An expanded problem focused history; An expanded problem focused examination; Medical decision making of low complexity. Counseling and coordination of care with other providers or agencies are provided consistent with the nature of the problem(s) and the patient's and/or family's needs. Usually, the presenting problem(s) are of low to moderate severity. Physicians typically spend 15 minutes qyvo-tm-shfn with the patient and/or family. 06/19/2015 08:27:11 78300 Office or other outpatient visit for the evaluation and management of an established patient, which requires at least 2 of these 3 carlisle components: An expanded problem focused history; An expanded problem focused examination; Medical decision making of low complexity. Counseling and coordination of care with other providers or agencies are provided consistent with the nature of the problem(s) and the patient's and/or family's needs. Usually, the presenting problem(s) are of low to moderate severity. Physicians typically spend 15 minutes cfey-xm-jpjg with the patient and/or family. 04/26/2015 08:20:21 42563 Office or other outpatient visit for the evaluation and management of an established patient, which requires at least 2 of these 3 carlisle components: An expanded problem focused history; An expanded problem focused examination; Medical decision making of low complexity. Counseling and coordination of care with other providers or agencies are provided consistent with the nature of the problem(s) and the patient's and/or family's needs. Usually, the presenting problem(s) are of low to moderate severity. Physicians typically spend 15 minutes vtwu-tu-foab with the patient and/or family. 04/26/2015 08:20:21 25251 Hemoglobin; glycosylated (A1C) by device cleared by FDA for home use 01/18/2015 08:11:52 52859 Office or other outpatient visit for the evaluation and management of an established patient, which requires at least 2 of these 3 carlisle components: An expanded problem focused history; An expanded problem focused examination; Medical decision making of low complexity. Counseling and coordination of care with other providers or agencies are provided consistent with the nature of the problem(s) and the patient's and/or family's needs. Usually, the presenting problem(s) are of low to moderate severity. Physicians typically spend 15 minutes apqo-mh-mgxo with the patient and/or family. 11/30/2014 08:15:54 00376 Office or other outpatient visit for the evaluation and management of an established patient, which requires at least 2 of these 3 carlisle components: A detailed history; A detailed examination; Medical decision making of moderate complexity. Counseling and/or coordination of care with other providers or agencies are provided consistent with the nature of the problem(s) and the patient's and/or family's n eeds. Usually, the presenting problem(s) are of moderate to high severity. Physicians typically spend 25 minutes txow-jo-hjvd with the patient and/or family. 11/30/2014 08:15:54 92452 Collection of venous blood by venipuncture 11/30/2014 08:15:54 84083 Hemoglobin; glycosylated (A1C) by device cleared by FDA for home use 10/19/2014 00:00:00 09645 Collection of venous blood by venipuncture 10/19/2014 00:00:00 18626 Office or other outpatient visit for the evaluation and management of an established patient, which requires at least 2 of these 3 carlisle components: An expanded problem focused history; An expanded problem focused examination; Medical decision making of low complexity. Counseling and coordination of care with other providers or agencies are provided consistent with the nature of the problem(s) and the patient's and/or family's needs. Usually, the presenting problem(s) are of low to moderate severity. Physicians typically spend 15 minutes selr-jp-jckp with the patient and/or family. 09/16/2014 00:00:00 47706 Office or other outpatient visit for the evaluation and management of an established patient, which requires at least 2 of these 3 carlisle components: An expanded problem focused history; An expanded problem focused examination; Medical decision making of low complexity. Counseling and coordination of care with other providers or agencies are provided consistent with the nature of the problem(s) and the patient's and/or family's needs. Usually, the presenting problem(s) are of low to moderate severity. Physicians typically spend 15 minutes xwwj-vt-iavu with the patient and/or family. 09/14/2014 00:00:00 14075 Office or other outpatient visit for the evaluation and management of an established patient, which requires at least 2 of these 3 carlisle components: An expanded problem focused history; An expanded problem focused examination; Medical decision making of low complexity. Counseling and coordination of care with other providers or agencies are provided consistent with the nature of the problem(s) and the patient's and/or family's needs. Usually, the presenting problem(s) are of low to moderate severity. Physicians typically spend 15 minutes phgs-qs-zwwt with the patient and/or family. 08/22/2014 15:40:11 49450 INFLUENZA VACCINATION 08/22/2014 15:40:11 30834 Periodic comprehensive preventive medicine reevaluation and management of an individual including an age and gender appropriate history, examination, counseling/anticipatory guidance/risk factor reduction interventions, and the ordering of laboratory/diagnostic procedures, established patient; 40-64 years 08/22/2014 15:40:11 94152 Collection of venous blood by venipuncture 08/22/2014 15:40:11 [id number] FLUVRIN 05/09/2014 00:00:00 32686 Office or other outpatient visit for the evaluation and management of an established patient, which requires at least 2 of these 3 carlisle components: An expanded problem focused history; An expanded problem focused examination; Medical decision making of low complexity. Counseling and coordination of care with other providers or agencies are provided consistent with the nature of the problem(s) and the patient's and/or family's needs. Usually, the presenting problem(s) are of low to moderate severity. Physicians typically spend 15 minutes mggg-qe-niwy with the patient and/or family. 05/09/2014 00:00:00 99690 Hemoglobin; glycosylated (A1C) by device cleared by FDA for home use 03/16/2014 00:00:00 92788 Office or other outpatient visit for the evaluation and management of an established patient, which requires at least 2 of these 3 carlisle components: A detailed history; A detailed examination; Medical decision making of moderate complexity. Counseling and/or coordination of care with other providers or agencies are provided consistent with the nature of the problem(s) and the patient's and/or family's n eeds. Usually, the presenting problem(s) are of moderate to high severity. Physicians typically spend 25 minutes vjae-nm-kxcv with the patient and/or family. 03/16/2014 00:00:00 73379 Hemoglobin; glycosylated (A1C) by device cleared by FDA for home use 11/05/2013 00:00:00 79204 Office or other outpatient visit for the evaluation and management of an established patient, which requires at least 2 of these 3 carlisle components: An expanded problem focused history; An expanded problem focused examination; Medical decision making of low complexity. Counseling and coordination of care with other providers or agencies are provided consistent with the nature of the problem(s) and the patient's and/or family's needs. Usually, the presenting problem(s) are of low to moderate severity. Physicians typically spend 15 minutes arfy-mm-sijo with the patient and/or family. 11/05/2013 00:00:00 73817 Collection of venous blood by venipuncture 11/05/2013 00:00:00 38144 Hemoglobin; glycosylated (A1C) by device cleared by FDA for home use 06/11/2013 00:00:00 63514 Periodic comprehensive preventive medicine reevaluation and management of an individual including an age and gender appropriate history, examination, counseling/anticipatory guidance/risk factor reduction interventions, and the ordering of laboratory/diagnostic procedures, established patient; 40-64 years 06/11/2013 00:00:00 62506 Hemoglobin; glycosylated (A1C) by device cleared by FDA for home use 06/09/2013 08:31:54 28431 Office or other outpatient visit for the evaluation and management of an established patient, which requires at least 2 of these 3 carlisle components: An expanded problem focused history; An expanded problem focused examination; Medical decision making of low complexity. Counseling and coordination of care with other providers or agencies are provided consistent with the nature of the problem(s) and the patient's and/or family's needs. Usually, the presenting problem(s) are of low to moderate severity. Physicians typically spend 15 minutes hzpd-yy-lqkf with the patient and/or family. 02/17/2013 08:29:32 53036 Office or other outpatient visit for the evaluation and management of an established patient, which requires at least 2 of these 3 carlisle components: An expanded problem focused history; An expanded problem focused examination; Medical decision making of low complexity. Counseling and coordination of care with other providers or agencies are provided consistent with the nature of the problem(s) and the patient's and/or family's needs. Usually, the presenting problem(s) are of low to moderate severity. Physicians typically spend 15 minutes bssk-ey-gsya with the patient and/or family. 02/17/2013 08:29:32 15309 Collection of venous blood by venipuncture 02/17/2013 08:29:32 83033 Hemoglobin; glycosylated (A1C) by device cleared by FDA for home use 11/02/2012 08:13:33 16811 Periodic comprehensive preventive medicine reevaluation and management of an individual including an age and gender appropriate history, examination, counseling/anticipatory guidance/risk factor reduction interventions, and the ordering of laboratory/diagnostic procedures, established patient; 40-64 years 11/02/2012 08:13:33 98800 Hemoglobin; glycosylated (A1C) by device cleared by FDA for home use 08/28/2012 08:54:25 70454 Office or other outpatient visit for the evaluation and management of an established patient, which requires at least 2 of these 3 carlisle components: An expanded problem focused history; An expanded problem focused examination; Medical decision making of low complexity. Counseling and coordination of care with other providers or agencies are provided consistent with the nature of the problem(s) and the patient's and/or family's needs. Usually, the presenting problem(s) are of low to moderate severity. Physicians typically spend 15 minutes qykp-vn-folr with the patient and/or family. 08/05/2012 11:43:02 33801 Office or other outpatient visit for the evaluation and management of an established patient, which requires at least 2 of these 3 carlisle components: An expanded problem focused history; An expanded problem focused examination; Medical decision making of low complexity. Counseling and coordination of care with other providers or agencies are provided consistent with the nature of the problem(s) and the patient's and/or family's needs. Usually, the presenting problem(s) are of low to moderate severity. Physicians typically spend 15 minutes kebc-bk-inrp with the patient and/or family. 08/05/2012 11:43:02 18352 Hemoglobin; glycosylated (A1C) by device cleared by FDA for home use 02/26/2012 08:27:00 65497 Collection of venous blood by venipuncture 02/26/2012 08:27:00 36252 Office or other outpatient visit for the evaluation and management of an established patient, which requires at least 2 of these 3 carlisle components: A detailed history; A detailed examination; Medical decision making of moderate complexity. Counseling and/or coordination of care with other providers or agencies are provided consistent with the nature of the problem(s) and the patient's and/or family's n eeds. Usually, the presenting problem(s) are of moderate to high severity. Physicians typically spend 25 minutes qymo-yl-vxqr with the patient and/or family. 10/23/2011 08:31:03 48104 Office or other outpatient visit for the evaluation and management of an established patient, which requires at least 2 of these 3 carlisle components: An expanded problem focused history; An expanded problem focused examination; Medical decision making of low complexity. Counseling and coordination of care with other providers or agencies are provided consistent with the nature of the problem(s) and the patient's and/or family's needs. Usually, the presenting problem(s) are of low to moderate severity. Physicians typically spend 15 minutes mxin-ji-ggyr with the patient and/or family. 10/23/2011 08:31:03 36419 Hemoglobin; glycosylated (A1C) by device cleared by FDA for home use 08/21/2011 08:26:48 79974 Collection of venous blood by venipuncture 08/21/2011 08:26:48 96758 Office or other outpatient visit for the evaluation and management of an established patient, which requires at least 2 of these 3 carlisle components: An expanded problem focused history; An expanded problem focused examination; Medical decision making of low complexity. Counseling and coordination of care with other providers or agencies are provided consistent with the nature of the problem(s) and the patient's and/or family's needs. Usually, the presenting problem(s) are of low to moderate severity. Physicians typically spend 15 minutes ffcp-oy-kvkt with the patient and/or family. 06/19/2011 08:43:09 [id number] INFLUENZA VACCINATION 06/19/2011 08:43:09 16977 Collection of venous blood by venipuncture 06/19/2011 08:43:09 47562 Immunization administration (includes percutaneous, intradermal, subcutaneous, or intramuscular injections); one vaccine (single or combination vaccine/toxoid) 06/19/2011 08:43:09 35141 Office or other outpatient visit for the evaluation and management of an established patient, which requires at least 2 of these 3 carlisle components: A detailed history; A detailed examination; Medical decision making of moderate complexity. Counseling and/or coordination of care with other providers or agencies are provided consistent with the nature of the problem(s) and the patient's and/or family's n eeds. Usually, the presenting problem(s) are of moderate to high severity. Physicians typically spend 25 minutes hxpi-rk-zdfn with the patient and/or family. 03/08/2011 08:41:01 87063 Office or other outpatient visit for the evaluation and management of an established patient, which requires at least 2 of these 3 carlisle components: A detailed history; A detailed examination; Medical decision making of moderate complexity. Counseling and/or coordination of care with other providers or agencies are provided consistent with the nature of the problem(s) and the patient's and/or family's n eeds. Usually, the presenting problem(s) are of moderate to high severity. Physicians typically spend 25 minutes jtel-yk-wekr with the patient and/or family. 12/26/2010 08:18:16 90413 Collection of venous blood by venipuncture 12/26/2010 08:18:16 20105 Office or other outpatient visit for the evaluation and management of an established patient, which requires at least 2 of these 3 carlisle components: An expanded problem focused history; An expanded problem focused examination; Medical decision making of low complexity. Counseling and coordination of care with other providers or agencies are provided consistent with the nature of the problem(s) and the patient's and/or family's needs. Usually, the presenting problem(s) are of low to moderate severity. Physicians typically spend 15 minutes oodk-nv-wrue with the patient and/or family. 12/14/2010 08:19:33 10415 Office or other outpatient visit for the evaluation and management of an established patient, which requires at least 2 of these 3 carlisle components: A detailed history; A detailed examination; Medical decision making of moderate complexity. Counseling and/or coordination of care with other providers or agencies are provided consistent with the nature of the problem(s) and the patient's and/or family's n eeds. Usually, the presenting problem(s) are of moderate to high severity. Physicians typically spend 25 minutes dwim-tz-mjkv with the patient and/or family. 09/24/2010 08:30:35 51364 Office or other outpatient visit for the evaluation and management of an established patient, which requires at least 2 of these 3 carlisle components: A detailed history; A detailed examination; Medical decision making of moderate complexity. Counseling and/or coordination of care with other providers or agencies are provided consistent with the nature of the problem(s) and the patient's and/or family's n eeds. Usually, the presenting problem(s) are of moderate to high severity. Physicians typically spend 25 minutes ivrb-vt-qldz with the patient and/or family. 08/29/2010 00:00:00 29298 Office or other outpatient visit for the evaluation and management of an established patient, which requires at least 2 of these 3 carlisle components: A detailed history; A detailed examination; Medical decision making of moderate complexity. Counseling and/or coordination of care with other providers or agencies are provided consistent with the nature of the problem(s) and the patient's and/or family's n eeds. Usually, the presenting problem(s) are of moderate to high severity. Physicians typically spend 25 minutes xlkn-ce-mgxg with the patient and/or family. 06/27/2010 00:00:00 60009 Office or other outpatient visit for the evaluation and management of an established patient, which requires at least 2 of these 3 carlisle components: A detailed history; A detailed examination; Medical decision making of moderate complexity. Counseling and/or coordination of care with other providers or agencies are provided consistent with the nature of the problem(s) and the patient's and/or family's n eeds. Usually, the presenting problem(s) are of moderate to high severity. Physicians typically spend 25 minutes lutv-to-hcaf with the patient and/or family. 06/27/2010 00:00:00 [id number] AT LEASTONE PRESCRIPTION CREATED DURING THE ENCOUNTER WAS GENERATED AND TRANSMITTED ELECTRONICALLY USING A [employer] SYSTEM 06/27/2010 00:00:00 74555 Collection of venous blood by venipuncture 06/13/2010 00:00:00 42536 Office or other outpatient visit for the evaluation and management of an established patient, which requires at least 2 of these 3 carlisle components: An expanded problem focused history; An expanded problem focused examination; Medical decision making of low complexity. Counseling and coordination of care with other providers or agencies are provided consistent with the nature of the problem(s) and the patient's and/or family's needs. Usually, the presenting problem(s) are of low to moderate severity. Physicians typically spend 15 minutes qxql-pu-etqx with the patient and/or family. 03/23/2010 00:00:00 84965 Office or other outpatient visit for the evaluation and management of an established patient, which requires at least 2 of these 3 carlisle components: A detailed history; A detailed examination; Medical decision making of moderate complexity. Counseling and/or coordination of care with other providers or agencies are provided consistent with the nature of the problem(s) and the patient's and/or family's n eeds. Usually, the presenting problem(s) are of moderate to high severity. Physicians typically spend 25 minutes xyyy-hp-vebi with the patient and/or family. 03/23/2010 00:00: 00100 Collection of venous blood by venipuncture 01/26/2010 00:00:00 13952 Office or other outpatient visit for the evaluation and management of an established patient, which requires at least 2 of these 3 carlisle components: A detailed history; A detailed examination; Medical decision making of moderate complexity. Counseling and/or coordination of care with other providers or agencies are provided consistent with the nature of the problem(s) and the patient's and/or family's n eeds. Usually, the presenting problem(s) are of moderate to high severity. Physicians typically spend 25 minutes hama-xb-rybc with the patient and/or family. 12/20/2009 00:00:00 04706 Collection of venous blood by venipuncture 12/20/2009 00:00:00 40505 Office or other outpatient visit for the evaluation and management of an established patient, which requires at least 2 of these 3 carlisle components: An expanded problem focused history; An expanded problem focused examination; Medical decision making of low complexity. Counseling and coordination of care with other providers or agencies are provided consistent with the nature of the problem(s) and the patient's and/or family's needs. Usually, the presenting problem(s) are of low to moderate severity. Physicians typically spend 15 minutes pkch-ol-lqtq with the patient and/or family. 09/18/2009 00:00:00 73807 Office or other outpatient visit for the evaluation and management of an established patient, which requires at least 2 of these 3 carlisle components: A detailed history; A detailed examination; Medical decision making of moderate complexity. Counseling and/or coordination of care with other providers or agencies are provided consistent with the nature of the problem(s) and the patient's and/or family's n eeds. Usually, the presenting problem(s) are of moderate to high severity. Physicians typically spend 25 minutes cslq-rb-xnqv with the patient and/or family. 09/18/2009 00:00:00 45904 Collection of venous blood by venipuncture 06/28/2009 00:00:00 81942 Office or other outpatient visit for the evaluation and management of an established patient, which requires at least 2 of these 3 carlisle components: A detailed history; A detailed examination; Medical decision making of moderate complexity. Counseling and/or coordination of care with other providers or agencies are provided consistent with the nature of the problem(s) and the patient's and/or family's n eeds. Usually, the presenting problem(s) are of moderate to high severity. Physicians typically spend 25 minutes ansl-sz-wgln with the patient and/or family. 06/16/2009 00:00:00 91051 Office or other outpatient visit for the evaluation and management of an established patient, which requires at least 2 of these 3 [place] components: A detailed history; A detailed examination; Medical decision making of moderate complexity. Counseling and/or coordination of care with other providers or agencies are provided consistent with the nature of the problem(s) and the patient's and/or family's n eeds. Usually, the presenting problem(s) are of moderate to high severity. Physicians typically spend 25 minutes [id number] with the patient and/or family. 06/16/2009 00:00:00 [id number] Blood, occult, by peroxidase activity (eg, guaiac), qualitative; feces, consecutive collected specimens with single determination, for colorectal neoplasm screening (ie, patient was provided 3 cards or single triple card for consecutive collection) 06/16/2009 00:00:00 [id number] Collection of venous blood by venipuncture -- [id number] Collection of v enous blood by venipuncture REASON FOR REFERRAL No Reason for Referral information available. RESULTS Result Type Result Value Relevant Reference Range Interpretation Date N/A Service Date and Time: 10/04/2020 1121 Technologist: Exam Requested: ECHOCARD,DOPPLER/COLOR FLOW Reason for Patient Visit: CARDIAC MURMUR, UNSPECIFIED Reason for Exam: DATE OF PROCEDURE: 10/04/2020 Age: 70 Gender: Male Height: 182 cm Weight: 117 kg REFERRING PHYSICIAN: Dr. Colleen Huang INDICATION: Cardiac murmur, unspecified. MEASUREMENTS: 2D Measurements: Intraventricular septum 0.98 cm Posterior wall 1.10 cm Left ventricle diastole 4.4 cm Aortic root 2.8 cm Left atrium 3.4 cm LVOT 2.0 cm Left atrial volume index 20 cm Inferior vena cava 1.4 cm Doppler Measurements: Moderate aortic stenosis No aortic regurgitation Peak aortic valve velocity 395 cm/s Peak aortic valve gradient 62 mmHg Mean aortic valve gradient 38 mmHg Aortic VTI 75.6 cm Aortic valve area (continuity equation, VTI) 1.10 cm2 Dimensionless index 0.35 LVOT velocity 114 cm/s LVOT VTI 26.4 cm No mitral regurgitation No mitral stenosis Mitral E velocity 73.3 cm/s Mitral A velocity 66.4 cm/s Mitral deceleration time 280 msec No tricuspid regurgitation No pulmonic regurgitation Pulmonary acceleration time 114 msec MITRAL ANNULAR TISSUE DOPPLER E prime septal 6.5 cm/s, E prime lateral 10.6 cm/s DESCRIPTION: Rhythm was sinus. Image quality was fair. No pericardial effusion. This was a 2D, M-mode, color flow Doppler, and pulsed wave Doppler examination including mitral annular tissue Doppler. CONCLUSIONS: 1. Severe calcification and thickening of the aortic valve. Technically difficult visualization for determination of the number of aortic cusps. Moderate aortic stenosis with peak transvalvular aortic velocity of 3.95 msec, mean aortic valve gradient of 38 mmHg, aortic valve area (continuity equation, VTI) 1.10 cm2, and dimensionless index of 0.35. No aortic regurgitation. 2. Normal left ventricle internal dimensions and wall thickness. Normal regional LV wall motion and wall thickening. Normal LV systolic function. LVEF 65% - 70% by visual estimate. Indeterminate for assessment of LV diastolic function (normal LV diastolic function versus grade 2 LV diastolic dysfunction).Presence of normal left atrial volume index would tend to favor normal LV diastolic function. 3. Moderate mitral annular calcification. No mitral regurgitation or mitral stenosis. 4. Otherwise normal appearing echocardiogram Doppler findings. RECOMMENDATIONS: Recommend a follow-up echocardiogram Doppler in six months. Recommend close clinical surveillance of this patient for development of heart failure, syncope, or anginal symptoms. DD: JAMES 10/07/20201048 DT: KENROY 10/09/20201043 DS: JAMES 10/10/20201956 <Electronically signed by Eduardo Arciniega> 10/10/20201956 The Following Link and Pin can be used to access images associated with this report: [id number] N/A N/A 10/04/2020 11:30:00 GLOMERULAR FILTRATION RAT 38 mL/min -- No Flag 10/03/2020 10:29:00 GLUCOSE 212 mg/dL 74-106 H 10/03/2020 10:29:00 BLOOD UREA NITROGEN 34 mg/dL 7-18 H 10/03/2020 10:29:00 CREATININE 1.77 mg/dL 0. 7-1.3 H 10/03/2020 10:29:00 SODIUM 136 mmol/L 136-145 No Flag 10/03/2020 10:29:00 POTASSIUM 5.1 mmol/L 3.5 -5.1 No Flag 10/03/2020 10:29:00 CHLORIDE 99 mmol/L 98-107 No Flag 10/03/2020 10:29:00 CO2 28 mmol/L 21-32 No Flag 10/03/2020 10:29:00 CALCIUM 9.1 mg/dL 8.5-10 .1 No [facility] 10/03/2020 10:29:00 ANION GAP 9.0 mmol/L 5-12 No Flag 10/03/2020 10:29:00 AST 20 U/L 15-37 No Flag 10/03/2020 10:29:00 ALT 41 U/L 12-78 No Flag 10/03/2020 10:29:00 ALKALINE PHOSPHATASE 84 U/L 46-116 No Flag 10/03/2020 10:29:00 TOTAL BILIRUBIN 0.5 mg/dL 0.2-1.0 No [facility] 10/03/2020 10:29:00 TOTAL PROTEIN 7.5 g/dl 6 .4-8.2 No [facility] 10/03/2020 10:29:00 ALBUMIN 4.1 gm/dL 3.4-5.0 No [facility] 10/03/2020 10:29:00 PARTIAL THROMBOPLASTIN TI 23.4 SECONDS 21.2- 27.3 No [facility] 10/03/2020 10:19:00 PROTHROMBIN TIME (PATIENT 10.2 SECONDS 9.1- 11.6 No [facility] 10/03/2020 10:19:00 INR 0.98 0.87-1.06 No [facility] 10/03/2020 10:19:00 WHITE BLOOD COUNT 7.3 K/mm3 4.0-10.0 No [facility] 10/03/2020 09:57:00 RED BLOOD COUNT 4.64 M/mm3 4.50-6.00 No [facility] 10/03/2020 09:57:00 HEMOGLOBIN 13.9 gm/dL 14 .0-18.0 L 10/03/2020 09:57:00 HEMATOCRIT 41.1 % 42.0-5 4.0 L 10/03/2020 09:57:00 MEAN CELL VOLUME 88.6 fl 80-96 No Flag 10/03/2020 09:57:00 MEAN CORPUSCULAR HEMOGLOB 30.0 pg 27.0-31.0 No Flag 10/03/2020 09:57:00 MEAN CORPUSCULAR HGB CONC 33.8 g/dl 32.0- 36.0 No Flag 10/03/2020 09:57:00 RED CELL DISTRIBUTION WID 12.5 % 10.0-14.5 No Flag 10/03/2020 09:57:00 PLATELET COUNT 298 K/mm3 172-450 No Flag 10/03/2020 09:57:00 MEAN PLATELET VOLUME 9.1 fl 9.0-13.0 No Flag 10/03/2020 09:57:00 GRAN % 66.2 % 50-80.0 No Flag 10/03/2020 09:57:00 IG% 0.3 % 0.0-0.2 H 10/03/2020 09:57:00 LYMPH % 20.8 % 25.0-50.0 L 10/03/2020 09:57:00 MONO % 8.0 % 2.0-10.0 No [facility] 10/03/2020 09:57:00 EOS % 4.3 % 0-5.0 No Flag 10/03/2020 09:57:00 BASO % 0.4 % 0.0-2.0 No [facility] 10/03/2020 09:57:00 GRAN # 4.8 K/mm3 2.0-8.00 No Flag 10/03/2020 09:57:00 IG# 0.0 K/mm3 0.0-0.2 No Flag 10/03/2020 09:57:00 LYMPH # 1.5 K/mm3 1.0-5.0 No [facility] 10/03/2020 09:57:00 MONO # 0.6 K/mm3 0.10-1. 20 No [facility] 10/03/2020 09:57:00 EOS # 0.3 K/mm3 0.0-0.5 No Flag 10/03/2020 09:57:00 BASO # 0.0 K/mm3 0.0-0.2 No Flag 10/03/2020 09:57:00 TSH 3.887 uIU/mL 0.36-3. 74 H 08/30/2020 09:03:00 GLOMERULAR FILTRATION RAT 39 mL/min -- No [facility] 08/30/2020 08:46:00 GLUCOSE 157 mg/dL 74-106 H 08/30/2020 08:46:00 BLOOD UREA NITROGEN 29 mg/dL 7-18 H 08/30/2020 08:46:00 CREATININE 1.76 mg/dL 0. 7-1.3 H 08/30/2020 08:46:00 SODIUM 141 mmol/L 136-145 No Flag 08/30/2020 08:46:00 POTASSIUM 5.0 mmol/L 3.5 -5.1 No Flag 08/30/2020 08:46:00 CHLORIDE 103 mmol/L 98-1 07 No Flag 08/30/2020 08:46:00 CO2 27 mmol/L 21-32 No Flag 08/30/2020 08:46:00 CALCIUM 9.2 mg/dL 8.5-10 .1 No Flag 08/30/2020 08:46:00 ANION GAP 11.0 mmol/L 5- 12 No Flag 08/30/2020 08:46:00 LIPASE 169 U/L 73-393 No Flag 08/30/2020 08:46:00 AMYLASE 74 U/L 25-115 No Flag 08/30/2020 08:46:00 WHITE BLOOD COUNT 5.4 K/mm3 4.0-10.0 No Flag 08/30/2020 08:16:00 RED BLOOD COUNT 4.47 M/mm3 4.50-6.00 L 08/30/2020 08:16:00 HEMOGLOBIN 13.5 gm/dL 14 .0-18.0 L 08/30/2020 08:16:00 HEMATOCRIT 40.1 % 42.0-5 4.0 L 08/30/2020 08:16:00 MEAN CELL VOLUME 89.7 fl 80-96 No Flag 08/30/2020 08:16:00 MEAN CORPUSCULAR HEMOGLOB 30.2 pg 27.0-31.0 No Flag 08/30/2020 08:16:00 MEAN CORPUSCULAR HGB CONC 33.7 g/dl 32.0- 36.0 No Flag 08/30/2020 08:16:00 RED CELL DISTRIBUTION WID 12.3 % 10.0-14.5 No Flag 08/30/2020 08:16:00 PLATELET COUNT 323 K/mm3 172-450 No Flag 08/30/2020 08:16:00 MEAN PLATELET VOLUME 8.9 fl 9.0-13.0 L 08/30/2020 08:16:00 GRAN % 63.8 % 50-80.0 No Flag 08/30/2020 08:16:00 IG% 0.2 % 0.0-0.2 No Flag 08/30/2020 08:16:00 LYMPH % 23.1 % 25.0-50.0 L 08/30/2020 08:16:00 MONO % 6.9 % 2.0-10.0 No Flag 08/30/2020 08:16:00 EOS % 5.6 % 0-5.0 H 08/30/2020 08:16:00 BASO % 0.4 % 0.0-2.0 No Flag 08/30/2020 08:16:00 GRAN # 3.4 K/mm3 2.0-8.00 No Flag 08/30/2020 08:16:00 IG# 0.0 K/mm3 0.0-0.2 No Flag 08/30/2020 08:16:00 LYMPH # 1.2 K/mm3 1.0-5.0 No Flag 08/30/2020 08:16:00 MONO # 0.4 K/mm3 0.10-1. 20 No Flag 08/30/2020 08:16:00 EOS # 0.3 K/mm3 0.0-0.5 No Flag 08/30/2020 08:16:00 BASO # 0.0 K/mm3 0.0-0.2 No Flag 08/30/2020 08:16:00 ALT/SGPT 29 U/L 12-78 No Flag 10/25/2019 17:18:00 GLOMERULAR FILTRATION RATE 40.0 >49 L 10/25/2019 17:18:00 GLUCOSE, FASTING 158 MG/DL 70-100 H 10/25/2019 17:18:00 BLOOD UREA NITROGEN 29 MG/DL 7-18 H 10/25/2019 17:18:00 CREATININE FOR GFR 1.81 MG/DL 0.70-1.30 H 10/25/2019 17:18:00 SODIUM LEVEL 137 MEQ/L 1 36-145 No Flag 10/25/2019 17:18:00 POTASSIUM SERUM 5.0 MEQ/L 3.5-5.1 No Flag 10/25/2019 17:18:00 CHLORIDE LEVEL 102 MEQ/L 98-107 No Flag 10/25/2019 17:18:00 CARBON DIOXIDE LEVEL 30 MEQ/L 21-32 No Flag 10/25/2019 17:18:00 ANION GAP 5 MEQ/L 8-16 L 10/25/2019 17:18:00 CALCIUM LEVEL 9.3 MG/DL 8.8-10.2 No Flag 10/25/2019 17:18:00 AST/SGOT 20 U/L 7-37 No Flag 10/25/2019 17:18:00 ALKALINE PHOSPHATASE 62 U/L 45-117 No Flag 10/25/2019 17:18:00 BILIRUBIN,TOTAL 0.5 MG/DL 0.2-1.0 No Flag 10/25/2019 17:18:00 TOTAL PROTEIN 7.8 GM/DL 6.4-8.2 No Flag 10/25/2019 17:18:00 ALBUMIN 4.2 GM/DL 3.2-5.2 No Flag 10/25/2019 17:18:00 ALBUMIN/GLOBULIN RATIO 1.17 1.00-1.93 No Flag 10/25/2019 17:18:00 TRIGLYCERIDES LEVEL 267 MG/DL <150 H 10/25/2019 17:18:00 CHOLESTEROL LEVEL 240 MG/DL <200 H 10/25/2019 17:18:00 HDL CHOLESTEROL 46 MG/DL >40 No Flag 10/25/2019 17:18:00 LDL CHOLESTEROL 141 MG/DL <100 H 10/25/2019 17:18:00 NON-HDL-C 194 MG/DL -- No Flag 10/25/2019 17:18:00 CHOLESTEROL RISK RATIO 5.217 <5 H 10/25/2019 17:18:00 WHITE BLOOD COUNT 5.9 10 3/uL 4.0-10.0 No Flag 10/25/2019 16:44:00 RED BLOOD COUNT 4.69 10 6/uL 4.30-6.10 No Flag 10/25/2019 16:44:00 HEMOGLOBIN 14.3 g/dl 13. 5-17.5 No Flag 10/25/2019 16:44:00 HEMATOCRIT 43.6 % 42.0-5 2.0 No Flag 10/25/2019 16:44:00 MEAN CORPUSCULAR VOLUME 93.0 fl 80.0-96.0 No Flag 10/25/2019 16:44:00 MEAN CORPUSCULAR HEMOGLOBIN 30.5 pg 27.0- 33.0 No Flag 10/25/2019 16:44:00 MEAN CORPUSCULAR HGB CONC 32.8 g/dl 32.0- 36.5 No Flag 10/25/2019 16:44:00 RED CELL DISTRIBUTION WIDTH 13.2 % 11.5-14.5 No Flag 10/25/2019 16:44:00 PLATELET COUNT, AUTOMATED 287 10 3/uL 150- 450 No Flag 10/25/2019 16:44:00 NEUTROPHILS % 67.5 % 36. 0-66.0 H 10/25/2019 16:44:00 LYMPH % 20.0 % 24.0-44.0 L 10/25/2019 16:44:00 MONO % 8.0 % 0.0-5.0 H 10/25/2019 16:44:00 EOS % 3.7 % 0.0-3.0 H 10/25/2019 16:44:00 BASO % 0.5 % 0.0-1.0 No Flag 10/25/2019 16:44:00 IMMATURE GRANULOCYTE % 0.3 % 0-3.0 No Flag 10/25/2019 16:44:00 NUCLEATED RED BLOOD CELL % 0.0 % 0-0 No Flag 10/25/2019 16:44:00 NEUTROPHILS # 4.0 10 3/uL 1.5-8.5 No Flag 10/25/2019 16:44:00 LYMPH # 1.2 10 3/uL 1.5- 5.0 L 10/25/2019 16:44:00 MONO # 0.5 10 3/uL 0.0-0 .8 No Flag 10/25/2019 16:44:00 EOS # 0.2 10 3/uL 0.0-0.5 No Flag 10/25/2019 16:44:00 BASO # 0.0 10 3/uL 0.0-0 .2 No Flag 10/25/2019 16:44:00 GLOMERULAR FILTRATION RATE 38.6 >49 L 12/14/2018 19:08:00 GLUCOSE, FASTING 321 MG/DL 70-100 H 12/14/2018 19:08:00 BLOOD UREA NITROGEN 31 MG/DL 7-18 H 12/14/2018 19:08:00 CREATININE FOR GFR 1.87 MG/DL 0.70-1.30 H 12/14/2018 19:08:00 SODIUM LEVEL 135 MEQ/L 1 36-145 L 12/14/2018 19:08:00 POTASSIUM SERUM 4.6 MEQ/L 3.5-5.1 No Flag 12/14/2018 19:08:00 CHLORIDE LEVEL 102 MEQ/L 98-107 No Flag 12/14/2018 19:08:00 CARBON DIOXIDE LEVEL 26 MEQ/L 21-32 No Flag 12/14/2018 19:08:00 ANION GAP 7 MEQ/L 8-16 L 12/14/2018 19:08:00 CALCIUM LEVEL 9.1 MG/DL 8.8-10.2 No Flag 12/14/2018 19:08:00 HEMATOCRIT 45.1 % 42.0-5 2.0 No Flag 03/07/2017 18:18:00 MEAN CORPUSCULAR VOLUME 93.9 fl 80.0-96.0 No Flag 03/07/2017 18:18:00 MEAN CORPUSCULAR HEMOGLOBIN 30.8 pg 27.0- 33.0 No Flag 03/07/2017 18:18:00 MEAN CORPUSCULAR HGB CONC 32.8 g/dl 32.0- 36.5 No Flag 03/07/2017 18:18:00 RED CELL DISTRIBUTION WIDTH 12.8 % 11.5-14.5 No Flag 03/07/2017 18:18:00 PLATELET COUNT, AUTOMATED 276 k/mm3 150-450 No Flag 03/07/2017 18:18:00 NEUTROPHILS % 65.8 % 36. 0-66.0 No Flag 03/07/2017 18:18:00 LYMPH % 20.8 % 24.0-44.0 L 03/07/2017 18:18:00 MONO % 7.0 % 0.0-5.0 H 03/07/2017 18:18:00 EOS % 4.0 % 0.0-3.0 H 03/07/2017 18:18:00 BASO % 0.9 % 0.0-1.0 No Flag 03/07/2017 18:18:00 LARGE UNSTAINED CELL % 1.5 % 0.0-4.0 No Flag 03/07/2017 18:18:00 NEUTROPHILS # 4.6 K/mm3 1.8-7.7 No Flag 03/07/2017 18:18:00 LYMPH # 1.5 K/mm3 1.5-4.5 No Flag 03/07/2017 18:18:00 MONO # 0.5 K/mm3 0.0-0.8 No Flag 03/07/2017 18:18:00 EOS # 0.3 K/mm3 0.0-0.50 No Flag 03/07/2017 18:18:00 BASO # 0.1 K/mm3 0.0-0.2 No Flag 03/07/2017 18:18:00 LARGE UNSTAINED CELL # 0.1 K/mm3 0.0-0.4 No Flag 03/07/2017 18:18:00 WHITE BLOOD COUNT 7.0 K/mm3 4.0-10.0 No Flag 03/07/2017 18:18:00 RED BLOOD COUNT 4.81 M/mm3 4.30-6.10 No Flag 03/07/2017 18:18:00 HEMOGLOBIN 14.8 g/dl 14. 0-18.0 No Flag 03/07/2017 18:18:00 GLOMERULAR FILTRATION RATE 40.4 >49 L 03/07/2017 18:14:00 GLUCOSE, FASTING 116 MG/DL 80-110 H 03/07/2017 18:14:00 BLOOD UREA NITROGEN 31 MG/DL 7-18 H 03/07/2017 18:14:00 CREATININE FOR GFR 1.81 MG/DL 0.70-1.30 H 03/07/2017 18:14:00 SODIUM LEVEL 137 MEQ/L 1 36-145 No Flag 03/07/2017 18:14:00 POTASSIUM SERUM 4.6 MEQ/L 3.5-5.1 No Flag 03/07/2017 18:14:00 CHLORIDE LEVEL 104 MEQ/L 98-107 No Flag 03/07/2017 18:14:00 CARBON DIOXIDE LEVEL 26 MEQ/L 21-32 No Flag 03/07/2017 18:14:00 ANION GAP 7 MEQ/L 8-16 L 03/07/2017 18:14:00 CALCIUM LEVEL 8.9 MG/DL 8.8-10.2 No Flag 03/07/2017 18:14:00 AST/SGOT 23 U/L 15-37 No Flag 03/07/2017 18:14:00 ALT/SGPT 34 U/L 12-78 No Flag 03/07/2017 18:14:00 ALKALINE PHOSPHATASE 66 U/L 45-117 No Flag 03/07/2017 18:14:00 BILIRUBIN,TOTAL 0.5 MG/DL 0.2-1.0 No Flag 03/07/2017 18:14:00 TOTAL PROTEIN 7.7 GM/DL 6.4-8.2 No Flag 03/07/2017 18:14:00 ALBUMIN 4.2 GM/DL 3.2-5.2 No Flag 03/07/2017 18:14:00 ALBUMIN/GLOBULIN RATIO 1.20 1.00-1.93 No Flag 03/07/2017 18:14:00 TRIGLYCERIDES LEVEL 245 MG/DL <150 H 03/07/2017 18:14:00 CHOLESTEROL LEVEL 174 MG/DL <200 No Flag 03/07/2017 18:14:00 HDL CHOLESTEROL 43 MG/DL >40 No Flag 03/07/2017 18:14:00 LDL CHOLESTEROL 82.0 MG/DL <100 No Flag 03/07/2017 18:14:00 NON-HDL-C 131 MG/DL -- No Flag 03/07/2017 18:14:00 CHOLESTEROL RISK RATIO 4.046 <5 No Flag 03/07/2017 18:14:00 TOTAL 25(OH) VITAMIN D 23.1 NG/ML 30.0-100.0 L 03/07/2017 18:14:00 WHITE BLOOD COUNT 8.5 K/mm3 4.0-10.0 No Flag 09/04/2016 11:53:00 RED BLOOD COUNT 4.58 M/mm3 4.50-6.00 No Flag 09/04/2016 11:53:00 HEMOGLOBIN 13.9 gm/dL 14 .0-18.0 L 09/04/2016 11:53:00 HEMATOCRIT 41.1 % 42.0-5 4.0 L 09/04/2016 11:53:00 MEAN CELL VOLUME 89.7 fl 80-96 No Flag 09/04/2016 11:53:00 MEAN CORPUSCULAR HEMOGLOB 30.3 pg 27.0-31.0 No Flag 09/04/2016 11:53:00 MEAN CORPUSCULAR HGB CONC 33.8 g/dl 32.0- 36.0 No Flag 09/04/2016 11:53:00 RED CELL DISTRIBUTION WID 12.9 % 10.0-14.5 No Flag 09/04/2016 11:53:00 PLATELET COUNT 239 K/mm3 172-450 No Flag 09/04/2016 11:53:00 MEAN PLATELET VOLUME 9.3 fl 9.0-13.0 No Flag 09/04/2016 11:53:00 GRAN % 69.0 % 50-80.0 No Flag 09/04/2016 11:53:00 LYMPH % 18.3 % 25.0-50.0 L 09/04/2016 11:53:00 MONO % 8.2 % 2.0-10.0 No Flag 09/04/2016 11:53:00 EOS % 3.9 % 0-5.0 No Flag 09/04/2016 11:53:00 BASO % 0.6 % 0.0-2.0 No Flag 09/04/2016 11:53:00 GRAN # 5.9 2.0-8.00 No Flag 09/04/2016 11:53:00 LYMPH # 1.6 1.0-5.0 No Flag 09/04/2016 11:53:00 MONO # 0.7 0.10-1.20 No Flag 09/04/2016 11:53:00 EOS # 0.3 0.0-0.5 No Flag 09/04/2016 11:53:00 BASO # 0.1 K/mm3 0.0-0.2 No Flag 09/04/2016 11:53:00 N/A Service Date and Time: 04/20/2016 1643 Technologist: Exam Requested: ECG WITH READING ER PHYS Reason for Patient Visit: CHEST PAIN Reason for Exam: Chest Pain Stationary ECG Study [facility] - ED Test Date: 2016-04-20 Pat Name: ESTRELLA MENDOZA Department: Room: - Gender: M [employer] L[employer] 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: mr : 1950 Requested By: Jung Sofia Order Number: [id number] Reading MD: Shira Otero Measurements Intervals [place] Rate: 77 P: 68 [place]: 152 QRS: -30 QRSD: 100 T: 44 QT: 384 QTc: 437 Interpretive Statements SINUS RHYTHM BORDERLINE LEFT AXIS DEVIATION LOW V[place] NSTTW ABNORMALITY NO PRIOR FOR COMPARISON Electronically Signed On 04-21-2016 20:05:36 EDT by Shira Otero DD: PEDRO 04/20/2016 1312 DT: [place] 04/21/20162004 DS: PEDRO 04/21/20162004 The Following Link and Pin can be used to access images associated with this report: [id number] N/A N/A 04/20/2016 13:07:00 HEMOGLOBIN A1c 7.7 % 4.5 -6.2 H 01/22/2016 19:57:00 ESTIMATED AVERAGE GLUCOSE 174 MG/DL 60-110 H 01/22/2016 19:57:00 GLOMERULAR FILTRATION RATE 39.5 >49 L 01/22/2016 19:03:00 GLUCOSE, FASTING 165 MG/DL 80-110 H 01/22/2016 19:03:00 BLOOD UREA NITROGEN 31 MG/DL 7-18 H 01/22/2016 19:03:00 CREATININE FOR GFR 1.85 MG/DL 0.70-1.30 H 01/22/2016 19:03:00 SODIUM LEVEL 138 MEQ/L 1 36-145 No Flag 01/22/2016 19:03:00 POTASSIUM SERUM 5.0 MEQ/L 3.5-5.1 No Flag 01/22/2016 19:03:00 CHLORIDE LEVEL 106 MEQ/L 98-107 No Flag 01/22/2016 19:03:00 CARBON DIOXIDE LEVEL 25 MEQ/L 21-32 No Flag 01/22/2016 19:03:00 ANION GAP 7 MEQ/L 8-16 L 01/22/2016 19:03:00 CALCIUM LEVEL 8.5 MG/DL 8.8-10.2 L 01/22/2016 19:03:00 AST/SGOT 24 U/L 15-37 No Flag 01/22/2016 19:03:00 ALT/SGPT 35 U/L 12-78 No Flag 01/22/2016 19:03:00 ALKALINE PHOSPHATASE 65 U/L 45-117 No Flag 01/22/2016 19:03:00 BILIRUBIN,TOTAL 0.5 MG/DL 0.2-1.0 No Flag 01/22/2016 19:03:00 TOTAL PROTEIN 7.5 GM/DL 6.4-8.2 No Flag 01/22/2016 19:03:00 ALBUMIN 4.2 GM/DL 3.2-5.2 No Flag 01/22/2016 19:03:00 ALBUMIN/GLOBULIN RATIO 1.27 1.00-1.93 No Flag 01/22/2016 19:03:00 TRIGLYCERIDES LEVEL 207 MG/DL <150 H 01/22/2016 19:03:00 CHOLESTEROL LEVEL 153 MG/DL <200 No Flag 01/22/2016 19:03:00 HDL CHOLESTEROL 40 MG/DL >40 No Flag 01/22/2016 19:03:00 LDL CHOLESTEROL 71.6 MG/DL <100 No Flag 01/22/2016 19:03:00 NON-HDL-C 113 MG/DL -- No Flag 01/22/2016 19:03:00 CHOLESTEROL RISK RATIO 3.825 <5 No Flag 01/22/2016 19:03:00 WHITE BLOOD COUNT 5.9 K/mm3 5.0-10.0 No Flag 01/22/2016 18:56:00 RED BLOOD COUNT 4.80 M/mm3 4.70-6.10 No Flag 01/22/2016 18:56:00 HEMOGLOBIN 14.7 g/dl 14. 0-18.0 No Flag 01/22/2016 18:56:00 HEMATOCRIT 44.1 % 42.0-5 2.0 No Flag 01/22/2016 18:56:00 MEAN CORPUSCULAR VOLUME 91.8 fl 80.0-96.0 No Flag 01/22/2016 18:56:00 MEAN CORPUSCULAR HEMOGLOBIN 30.5 pg 27.0- 33.0 No Flag 01/22/2016 18:56:00 MEAN CORPUSCULAR HGB CONC 33.3 g/dl 32.0- 36.5 No Flag 01/22/2016 18:56:00 RED CELL DISTRIBUTION WIDTH 13.9 % 11.5-14.5 No Flag 01/22/2016 18:56:00 PLATELET COUNT, AUTOMATED 264 k/mm3 172-450 No Flag 01/22/2016 18:56:00 NEUTROPHILS % 70.6 % 36. 0-66.0 H 01/22/2016 18:56:00 LYMPH % 17.8 % 24.0-44.0 L 01/22/2016 18:56:00 MONO % 6.4 % 0.0-5.0 H 01/22/2016 18:56:00 EOS % 2.9 % 0.0-3.0 No Flag 01/22/2016 18:56:00 BASO % 0.6 % 0.0-1.0 No Flag 01/22/2016 18:56:00 NEUTROPHILS # 4.2 K/mm3 1.8-7.7 No Flag 01/22/2016 18:56:00 LYMPH # 1.1 K/mm3 1.5-4.5 L 01/22/2016 18:56:00 MONO # 0.4 K/mm3 0.0-0.8 No Flag 01/22/2016 18:56:00 EOS # 0.2 K/mm3 0.0-0.50 No Flag 01/22/2016 18:56:00 BASO # 0.0 K/mm3 0.0-0.2 No Flag 01/22/2016 18:56:00 GLOMERULAR FILTRATION RATE 43.8 >49 L 11/17/2015 18:25:00 GLUCOSE, FASTING 192 MG/DL 80-110 H 11/17/2015 18:25:00 BLOOD UREA NITROGEN 34 MG/DL 7-18 H 11/17/2015 18:25:00 CREATININE FOR GFR 1.69 MG/DL 0.70-1.30 H 11/17/2015 18:25:00 SODIUM LEVEL 139 MEQ/L 1 36-145 No Flag 11/17/2015 18:25:00 POTASSIUM SERUM 5.1 MEQ/L 3.5-5.1 No Flag 11/17/2015 18:25:00 CHLORIDE LEVEL 107 MEQ/L 98-107 No Flag 11/17/2015 18:25:00 CARBON DIOXIDE LEVEL 25 MEQ/L 21-32 No Flag 11/17/2015 18:25:00 ANION GAP 7 MEQ/L 8-16 L 11/17/2015 18:25:00 CALCIUM LEVEL 8.8 MG/DL 8.8-10.2 No Flag 11/17/2015 18:25:00 AST/SGOT 20 U/L 15-37 No Flag 11/17/2015 18:25:00 ALT/SGPT 36 U/L 12-78 No Flag 11/17/2015 18:25:00 ALKALINE PHOSPHATASE 69 U/L 45-117 No Flag 11/17/2015 18:25:00 BILIRUBIN,TOTAL 0.5 MG/DL 0.2-1.0 No Flag 11/17/2015 18:25:00 TOTAL PROTEIN 8.0 GM/DL 6.4-8.2 No Flag 11/17/2015 18:25:00 ALBUMIN 4.1 GM/DL 3.2-5.2 No Flag 11/17/2015 18:25:00 ALBUMIN/GLOBULIN RATIO 1.05 1.00-1.93 No Flag 11/17/2015 18:25:00 GLOMERULAR FILTRATION RATE 43.8 >49 L 11/17/2015 18:25:00 GLUCOSE, FASTING 192 MG/DL 80-110 H 11/17/2015 18:25:00 BLOOD UREA NITROGEN 34 MG/DL 7-18 H 11/17/2015 18:25:00 CREATININE FOR GFR 1.69 MG/DL 0.70-1.30 H 11/17/2015 18:25:00 SODIUM LEVEL 139 MEQ/L 1 36-145 No Flag 11/17/2015 18:25:00 POTASSIUM SERUM 5.1 MEQ/L 3.5-5.1 No Flag 11/17/2015 18:25:00 CHLORIDE LEVEL 107 MEQ/L 98-107 No Flag 11/17/2015 18:25:00 CARBON DIOXIDE LEVEL 25 MEQ/L 21-32 No Flag 11/17/2015 18:25:00 ANION GAP 7 MEQ/L 8-16 L 11/17/2015 18:25:00 CALCIUM LEVEL 8.8 MG/DL 8.8-10.2 No Flag 11/17/2015 18:25:00 AST/SGOT 20 U/L 15-37 No Flag 11/17/2015 18:25:00 ALT/SGPT 36 U/L 12-78 No Flag 11/17/2015 18:25:00 ALKALINE PHOSPHATASE 69 U/L 45-117 No Flag 11/17/2015 18:25:00 BILIRUBIN,TOTAL 0.5 MG/DL 0.2-1.0 No Flag 11/17/2015 18:25:00 TOTAL PROTEIN 8.0 GM/DL 6.4-8.2 No Flag 11/17/2015 18:25:00 ALBUMIN 4.1 GM/DL 3.2-5.2 No Flag 11/17/2015 18:25:00 ALBUMIN/GLOBULIN RATIO 1.05 1.00-1.93 No Flag 11/17/2015 18:25:00 GLOMERULAR FILTRATION RATE 43.8 >49 L 11/17/2015 18:25:00 GLUCOSE, FASTING 192 MG/DL 80-110 H 11/17/2015 18:25:00 BLOOD UREA NITROGEN 34 MG/DL 7-18 H 11/17/2015 18:25:00 CREATININE FOR GFR 1.69 MG/DL 0.70-1.30 H 11/17/2015 18:25:00 SODIUM LEVEL 139 MEQ/L 1 36-145 No Flag 11/17/2015 18:25:00 POTASSIUM SERUM 5.1 MEQ/L 3.5-5.1 No Flag 11/17/2015 18:25:00 CHLORIDE LEVEL 107 MEQ/L 98-107 No Flag 11/17/2015 18:25:00 CARBON DIOXIDE LEVEL 25 MEQ/L 21-32 No Flag 11/17/2015 18:25:00 ANION GAP 7 MEQ/L 8-16 L 11/17/2015 18:25:00 CALCIUM LEVEL 8.8 MG/DL 8.8-10.2 No Flag 11/17/2015 18:25:00 AST/SGOT 20 U/L 15-37 No Flag 11/17/2015 18:25:00 ALT/SGPT 36 U/L 12-78 No Flag 11/17/2015 18:25:00 ALKALINE PHOSPHATASE 69 U/L 45-117 No Flag 11/17/2015 18:25:00 BILIRUBIN,TOTAL 0.5 MG/DL 0.2-1.0 No Flag 11/17/2015 18:25:00 TOTAL PROTEIN 8.0 GM/DL 6.4-8.2 No Flag 11/17/2015 18:25:00 ALBUMIN 4.1 GM/DL 3.2-5.2 No Flag 11/17/2015 18:25:00 ALBUMIN/GLOBULIN RATIO 1.05 1.00-1.93 No Flag 11/17/2015 18:25:00 TRIGLYCERIDES LEVEL 291 MG/DL <150 H 11/17/2015 18:25:00 CHOLESTEROL LEVEL 194 MG/DL <200 No Flag 11/17/2015 18:25:00 HDL CHOLESTEROL 41 MG/DL >40 No Flag 11/17/2015 18:25:00 LDL CHOLESTEROL 94.8 MG/DL <100 No Flag 11/17/2015 18:25:00 NON-HDL-C 153 MG/DL -- No Flag 11/17/2015 18:25:00 CHOLESTEROL RISK RATIO 4.731 <5 No Flag 11/17/2015 18:25:00 TRIGLYCERIDES LEVEL 291 MG/DL <150 H 11/17/2015 18:25:00 CHOLESTEROL LEVEL 194 MG/DL <200 No Flag 11/17/2015 18:25:00 HDL CHOLESTEROL 41 MG/DL >40 No Flag 11/17/2015 18:25:00 LDL CHOLESTEROL 94.8 MG/DL <100 No Flag 11/17/2015 18:25:00 NON-HDL-C 153 MG/DL -- No Flag 11/17/2015 18:25:00 CHOLESTEROL RISK RATIO 4.731 <5 No Flag 11/17/2015 18:25:00 TRIGLYCERIDES LEVEL 291 MG/DL <150 H 11/17/2015 18:25:00 CHOLESTEROL LEVEL 194 MG/DL <200 No Flag 11/17/2015 18:25:00 HDL CHOLESTEROL 41 MG/DL >40 No Flag 11/17/2015 18:25:00 LDL CHOLESTEROL 94.8 MG/DL <100 No Flag 11/17/2015 18:25:00 NON-HDL-C 153 MG/DL -- No Flag 11/17/2015 18:25:00 CHOLESTEROL RISK RATIO 4.731 <5 No Flag 11/17/2015 18:25:00 TOTAL 25(OH) VITAMIN D 19.4 NG/ML 30.0-100.0 L 11/17/2015 18:25:00 TOTAL 25(OH) VITAMIN D 19.4 NG/ML 30.0-100.0 L 11/17/2015 18:25:00 PTH INTACT 54.0 PG/ML 14 .0-72.0 No Flag 11/17/2015 18:25:00 WHITE BLOOD COUNT 6.5 K/mm3 5.0-10.0 No Flag 11/17/2015 18:14:00 RED BLOOD COUNT 4.94 M/mm3 4.70-6.10 No Flag 11/17/2015 18:14:00 HEMOGLOBIN 14.7 g/dl 14. 0-18.0 No Flag 11/17/2015 18:14:00 HEMATOCRIT 45.6 % 42.0-5 2.0 No Flag 11/17/2015 18:14:00 MEAN CORPUSCULAR VOLUME 92.3 fl 80.0-96.0 No Flag 11/17/2015 18:14:00 MEAN CORPUSCULAR HEMOGLOBIN 29.7 pg 27.0- 33.0 No Flag 11/17/2015 18:14:00 MEAN CORPUSCULAR HGB CONC 32.2 g/dl 32.0- 36.5 No Flag 11/17/2015 18:14:00 RED CELL DISTRIBUTION WIDTH 13.5 % 11.5-14.5 No Flag 11/17/2015 18:14:00 PLATELET COUNT, AUTOMATED 305 k/mm3 172-450 No Flag 11/17/2015 18:14:00 NEUTROPHILS % 70.3 % 36. 0-66.0 H 11/17/2015 18:14:00 LYMPH % 17.5 % 24.0-44.0 L 11/17/2015 18:14:00 MONO % 5.9 % 0.0-5.0 H 11/17/2015 18:14:00 EOS % 4.3 % 0.0-3.0 H 11/17/2015 18:14:00 BASO % 0.5 % 0.0-1.0 No Flag 11/17/2015 18:14:00 NEUTROPHILS # 4.6 K/mm3 1.8-7.7 No Flag 11/17/2015 18:14:00 LYMPH # 1.2 K/mm3 1.5-4.5 L 11/17/2015 18:14:00 MONO # 0.4 K/mm3 0.0-0.8 No Flag 11/17/2015 18:14:00 EOS # 0.3 K/mm3 0.0-0.50 No Flag 11/17/2015 18:14:00 BASO # 0.0 K/mm3 0.0-0.2 No Flag 11/17/2015 18:14:00 URINE RBC NONE SEEN /hpf 0-3 No Flag 08/11/2015 09:12:00 URINE WBC 0-1 /hpf 0-3 No Flag 08/11/2015 09:12:00 URINE EPITHELIAL CELLS OCC /hpf -- No Flag 08/11/2015 09:12:00 URINE HYALINE CAST 0-1 /LPF -- No Flag 08/11/2015 09:12:00 URINE MUCUS TRACE NEGAT PASCUAL H 08/11/2015 09:12:00 URINE COLOR. YELLOW -- No Flag 08/11/2015 09:01:00 URINE APPEARANCE CLEAR -- No Flag 08/11/2015 09:01:00 SPECIFIC GRAVITY,URINE 1.020 1.002-1.035 No Flag 08/11/2015 09:01:00 URINE LEUKOCYTE ESTERASE NEGATIVE NEGATIVE No Flag 08/11/2015 09:01:00 URINE NITRATE NEGATIVE NEGATIVE No Flag 08/11/2015 09:01:00 PH,URINE 5.0 UNITS 5.0-9 .0 No Flag 08/11/2015 09:01:00 URINE PROTEIN TRACE mg/dL NEGATIVE H 08/11/2015 09:01:00 URINE GLUCOSE (UA) 1000(4+) mg/dL NEGATIVE H 08/11/2015 09:01:00 URINE KETONE NEGATIVE mg/dL NEGATIVE No Flag 08/11/2015 09:01:00 URINE UROBILINOGEN NORMAL MG/DL NORMAL No Flag 08/11/2015 09:01:00 URINE BILIRUBIN NEGATIVE NEGATIVE No Flag 08/11/2015 09:01:00 URINE BLOOD NEGATIVE NE GATIVE No Flag 08/11/2015 09:01:00 URINE COLOR. YELLOW -- No Flag 08/11/2015 09:01:00 URINE APPEARANCE CLEAR -- No Flag 08/11/2015 09:01:00 SPECIFIC GRAVITY,URINE 1.020 1.002-1.035 No Flag 08/11/2015 09:01:00 URINE LEUKOCYTE ESTERASE NEGATIVE NEGATIVE No Flag 08/11/2015 09:01:00 URINE NITRATE NEGATIVE NEGATIVE No Flag 08/11/2015 09:01:00 PH,URINE 5.0 UNITS 5.0-9 .0 No Flag 08/11/2015 09:01:00 URINE PROTEIN TRACE mg/dL NEGATIVE H 08/11/2015 09:01:00 URINE GLUCOSE (UA) 1000(4+) mg/dL NEGATIVE H 08/11/2015 09:01:00 URINE KETONE NEGATIVE mg/dL NEGATIVE No Flag 08/11/2015 09:01:00 URINE UROBILINOGEN NORMAL MG/DL NORMAL No Flag 08/11/2015 09:01:00 URINE BILIRUBIN NEGATIVE NEGATIVE No Flag 08/11/2015 09:01:00 URINE BLOOD NEGATIVE NE GATIVE No Flag 08/11/2015 09:01:00 SOCIAL HISTORY Social History Observation Description Dates Observed Smoking Status Former smoker, [[facility] D-CT: [id number]], 75.00 pk yrs/20.00 yrs quit 11/30/2014 - 11/30/2014 TREATMENT PLAN Encounter Date Planned Care 10/11/2020 12:23:37 will call thiago Ying 15 min discussion with patient and . [facility]10/11/2020 12:23:37 will call thiago Ying 15 min discussion with patient and . [facility]10/11/2020 12:23:37 will call thiago Ying 15 min discussion with patient and . [facility]10/04/2020 14:27:34 This visit was spent in reviewing with the patient their chart, labs and testing, speaking with the patient via telemedicine(video feed), answering questions and completing a plan. a 20 min phone contact with this patient ...actually multiple contacts to reassure him 10/04/2020 14:27:34 This visit was spent in reviewing with the patient their chart, labs and testing, speaking with the patient via telemedicine(video feed), answering questions and completing a plan. a 20 min phone contact with this patient ...actually multiple contacts to reassure him 10/04/2020 14:27:34 This visit was spent in reviewing with the patient their chart, labs and testing, speaking with the patient via telemedicine(video feed), answering questions and completing a plan. a 20 min phone contact with this patient ...actually multiple contacts to reassure him 10/02/2020 08:16:17 Because of his aortic stenosis some consideration should be given for antibiotic prophylaxis for infective endocarditis for his cholecystectomy. He does have diabetes and chronic kidney disease. His hgac today is 8.7% actually reflecting improved control over the last done late summer. He has recently needed to use insulin at higher doses due to pancreatitis and needing to stop his trulicity. His activity level is at least 6-10 mets. He is very active in snowmobiling most recently and is free of cardiovascular symptoms. His EKG and CXR are stable/normal. Labs are also stable. As noted below, He will require IV of D5NS with insulin coverage of blood sugars periprocedurally. His chronic medical issues would be considered optimized for him to pursue his proposed laparoscopic cholecystectomy. ORDERED/ADVISED: Order Date 10-02-2020 - CBC with diff (automated) (F41.9, K80.19, N18.9, Z86.69, K85.90, E11.65, I10) - CMP (Complete Metabolic Panel) (F41.9, K80.19, N18.9, Z86.69, K85.90, E11.65, I10) - PT/PTT (F41.9, K80.19, N18.9, Z86.69, K85.90, E11.65, I10) ORDERED/ADVISED: Order Date 10-02-2020 - CXR - PA & Lat (F41.9, K80.19, N18.9, Z86.69, K85.90, E11.65, I10) - EKG (F41.9, K80.19, N18.9, Z86.69, K85.90, E11.65, I10) He will be NPO the morning of surgery and will need an IV D5NS and blood sugar followed and treated in recovery. He is instructed to take his usual evening lantus dose but will not have meal coverage after his supper the night before his sugar. He will stop his metformin for two days prior to his surgery. ORDERED/ADVISED: Order Date 10-02-2020 - Echocardiogram (K80.19, N18.9, R01.1, E11.65, I10) He is very unhappy that he requires a preop eval and may cancel everything. 10/02/2020 08:16:17 He does have diabetes and chronic kidney. His hgac today is 8.7% actually reflecting improved control over the last done late summer. He has recently needed to use insulin at higher doses due to pancreatitis and needing to stop his trulicity. His activity level is at least 6 mets. His EKG and CXR are stable/normal. Labs are also stable. His chronic medical issues would be considered optimized for him to pursue his proposed laparoscopic cholecystectomy. ORDERED/ADVISED: Order Date 10-02-2020 - CBC with diff (automated) (F41.9, K80.19, N18.9, Z86.69, K85.90, E11.65, I10) - CMP (Complete Metabolic Panel) (F41.9, K80.19, N18.9, Z86.69, K85.90, E11.65, I10) - PT/PTT (F41.9, K80.19, N18.9, Z86.69, K85.90, E11.65, I10) ORDERED/ADVISED: Order Date 10-02-2020 - CXR - PA & Lat (F41.9, K80.19, N18.9, Z86.69, K85.90, E11.65, I10) - EKG (F41.9, K80.19, N18.9, Z86.69, K85.90, E11.65, I10) He will be NPO the morning of surgery and will need an IV D5NS and blood sugar followed and treated in recovery. He is instructed to take his usual evening lantus dose but will not have meal coverage after his supper the night before his sugar. He will stop his metformin for two days prior to his surgery. ORDERED/ADVISED: Order Date 10-02-2020 - Echocardiogram (K80.19, N18.9, R01.1, E11.65, I10) He is very unhappy that he requires a preop eval and may cancel everything. He is faxing me his sliding scale meal coverage to evaluate. 10/02/2020 08:16:17 Because of his aortic stenosis some consideration should be given for antibiotic prophylaxis for infective endocarditis for his cholecystectomy. He does have diabetes and chronic kidney disease. His hgac today is 8.7% actually reflecting improved control over the last done late summer. He has recently needed to use insulin at higher doses due to pancreatitis and needing to stop his trulicity. His activity level is at least 6-10 mets. He is very active in snowmobiling most recently and is free of cardiovascular symptoms. His EKG and CXR are stable/normal. Labs are also stable. As noted below, He will require IV of D5NS with insulin coverage of blood sugars periprocedurally. His chronic medical issues would be considered optimized for him to pursue his proposed laparoscopic cholecystectomy. ORDERED/ADVISED: Order Date 10-02-2020 - CBC with diff (automated) (F41.9, K80.19, N18.9, Z86.69, K85.90, E11.65, I10) - CMP (Complete Metabolic Panel) (F41.9, K80.19, N18.9, Z86.69, K85.90, E11.65, I10) - PT/PTT (F41.9, K80.19, N18.9, Z86.69, K85.90, E11.65, I10) ORDERED/ADVISED: Order Date 10-02-2020 - CXR - PA & Lat (F41.9, K80.19, N18.9, Z86.69, K85.90, E11.65, I10) - EKG (F41.9, K80.19, N18.9, Z86.69, K85.90, E11.65, I10) He will be NPO the morning of surgery and will need an IV D5NS and blood sugar followed and treated in recovery. He is instructed to take his usual evening lantus dose but will not have meal coverage after his supper the night before his sugar. He will stop his metformin for two days prior to his surgery. ORDERED/ADVISED: Order Date 10-02-2020 - Echocardiogram (K80.19, N18.9, R01.1, E11.65, I10) He is very unhappy that he requires a preop eval and may cancel everything. 10/02/2020 08:16:17 He does have diabetes and chronic kidney. His hgac today is 8.7% actually reflecting improved control over the last done late summer. He has recently needed to use insulin at higher doses due to pancreatitis and needing to stop his trulicity. His activity level is at least 6 mets. His EKG and CXR are stable/normal. Labs are also stable. His chronic medical issues would be considered optimized for him to pursue his proposed laparoscopic cholecystectomy. ORDERED/ADVISED: Order Date 10-02-2020 - CBC with diff (automated) (F41.9, K80.19, N18.9, Z86.69, K85.90, E11.65, I10) - CMP (Complete Metabolic Panel) (F41.9, K80.19, N18.9, Z86.69, K85.90, E11.65, I10) - PT/PTT (F41.9, K80.19, N18.9, Z86.69, K85.90, E11.65, I10) ORDERED/ADVISED: Order Date 10-02-2020 - CXR - PA & Lat (F41.9, K80.19, N18.9, Z86.69, K85.90, E11.65, I10) - EKG (F41.9, K80.19, N18.9, Z86.69, K85.90, E11.65, I10) He will be NPO the morning of surgery and will need an IV D5NS and blood sugar followed and treated in recovery. He is instructed to take his usual evening lantus dose but will not have meal coverage after his supper the night before his sugar. He will stop his metformin for two days prior to his surgery. ORDERED/ADVISED: Order Date 10-02-2020 - Echocardiogram (K80.19, N18.9, R01.1, E11.65, I10) He is very unhappy that he requires a preop eval and may cancel everything. He is faxing me his sliding scale meal coverage to evaluate. 10/02/2020 08:16:17 Because of his aortic stenosis some consideration should be given for antibiotic prophylaxis for infective endocarditis for his cholecystectomy. He does have diabetes and chronic kidney disease. His hgac today is 8.7% actually reflecting improved control over the last done late summer. He has recently needed to use insulin at higher doses due to pancreatitis and needing to stop his trulicity. His activity level is at least 6-10 mets. He is very active in snowmobiling most recently and is free of cardiovascular symptoms. His EKG and CXR are stable/normal. Labs are also stable. As noted below, He will require IV of D5NS with insulin coverage of blood sugars periprocedurally. His chronic medical issues would be considered optimized for him to pursue his proposed laparoscopic cholecystectomy. ORDERED/ADVISED: Order Date 10-02-2020 - CBC with diff (automated) (F41.9, K80.19, N18.9, Z86.69, K85.90, E11.65, I10) - CMP (Complete Metabolic Panel) (F41.9, K80.19, N18.9, Z86.69, K85.90, E11.65, I10) - PT/PTT (F41.9, K80.19, N18.9, Z86.69, K85.90, E11.65, I10) ORDERED/ADVISED: Order Date 10-02-2020 - CXR - PA & Lat (F41.9, K80.19, N18.9, Z86.69, K85.90, E11.65, I10) - EKG (F41.9, K80.19, N18.9, Z86.69, K85.90, E11.65, I10) He will be NPO the morning of surgery and will need an IV D5NS and blood sugar followed and treated in recovery. He is instructed to take his usual evening lantus dose but will not have meal coverage after his supper the night before his sugar. He will stop his metformin for two days prior to his surgery. ORDERED/ADVISED: Order Date 10-02-2020 - Echocardiogram (K80.19, N18.9, R01.1, E11.65, I10) He is very unhappy that he requires a preop eval and may cancel everything. 09/27/2020 13:05:10 two extra tylenol tid and 800mg tid with meals He wanted percoset but I talked him out of it. This visit was spent in reviewing with the patient their chart, labs and testing, speaking with the patient via telemedicine(video feed), answering questions and completing a plan. maximize use of ice and moist heat. keep the shoulder moving. 7 min phone only 09/27/2020 13:05:10 two extra tylenol tid and 800mg tid with meals He wanted percoset but I talked him out of it. This visit was spent in reviewing with the patient their chart, labs and testing, speaking with the patient via telemedicine(video feed), answering questions and completing a plan. maximize use of ice and moist heat. keep the shoulder moving. 7 min phone only 09/27/2020 13:05:10 two extra tylenol tid and 800mg tid with meals He wanted percoset but I talked him out of it. This visit was spent in reviewing with the patient their chart, labs and testing, speaking with the patient via telemedicine(video feed), answering questions and completing a plan. maximize use of ice and moist heat. keep the shoulder moving. 7 min phone only 09/26/2020 10:41:47 Alternate ice and heat and he is to continue extra strength tylenol. He is lacking in full rom....it is his right arm. ORDERED/ADVISED: Order Date 09-26-2020 - Praveen Matamoros (OrthopedicSurgery) (limited shoulder rom post fall no abduction at all) (S49.91XA) 11 minute video/audio visit 09/26/2020 10:41:47 Alternate ice and heat and he is to continue extra strength tylenol. He is lacking in full rom....it is his right arm. ORDERED/ADVISED: Order Date 09-26-2020 - Praveen Matamoros (OrthopedicSurgery) (limited shoulder rom post fall no abduction at all) (S49.91XA) 11 minute video/audio visit 09/26/2020 10:41:47 Alternate ice and heat and he is to continue extra strength tylenol. He is lacking in full rom....it is his right arm. ORDERED/ADVISED: Order Date 09-26-2020 - Praveen Matamoros (OrthopedicSurgery) (limited shoulder rom post fall no abduction at all) (S49.91XA) 11 minute video/audio visit 09/15/2020 12:51:28 This visit was spent in reviewing with the patient their chart, labs and testing, speaking with the patient via telemedicine(video feed), answering questions and completing a plan. He is testing qid and his is helping him alot will have hgac in feb 5 min phone only 09/15/2020 12:51:28 This visit was spent in reviewing with the patient their chart, labs and testing, speaking with the patient via telemedicine(video feed), answering questions and completing a plan. He is testing qid and his is helping him alot will have hgac on feb 5 min phone only 09/15/2020 12:51:28 This visit was spent in reviewing with the patient their chart, labs and testing, speaking with the patient via telemedicine(video feed), answering questions and completing a plan. He is testing qid and his is helping him alot will have hgac in feb 5 min phone only 08/30/2020 08:24:51 This visit was spent in reviewing with the patient their chart, labs and testing, speaking with the patient via telemedicine(video feed), answering questions and completing a plan. we discussed him getting on a list for the vaccine. We discussed his unhappiness and how he is handling the pandemic. 8 min phone only 08/30/2020 08:24:51 This visit was spent in reviewing with the patient their chart, labs and testing, speaking with the patient via telemedicine(video feed), answering questions and completing a plan. we discussed him getting on a list for the vaccine. We discussed his unhappiness and how he is handling the pandemic. 8 min phone only 08/30/2020 08:24:51 This visit was spent in reviewing with the patient their chart, labs and testing, speaking with the patient via telemedicine(video feed), answering questions and completing a plan. we discussed him getting on a list for the vaccine. We discussed his unhappiness and how he is handling the pandemic. 8 min phone only 08/23/2020 09:37:34 ORDERED/ADVISED: Order Date 08-23-2020 - Amylase/Lipase (K85.90, N18.9, L29.9, E06.9, E11.65) - CBC with diff (automated) (K85.90, N18.9, L29.9, E06.9, E11.65) - BMP (Basic Metabolic Panel) (K85.90, N18.9, L29.9, E06.9, E11.65) - TSH (K85.90, N18.9, L29.9, E06.9, E11.65) This visit was spent in reviewing with the patient their chart, labs and testing, speaking with the patient via telemedicine(video feed), answering questions and completing a plan. 7 min phone only 08/23/2020 09:37:34 ORDERED/ADVISED: Order Date 08-23-2020 - Amylase/Lipase (K85.90, N18.9, L29.9, E06.9, E11.65) - CBC with diff (automated) (K85.90, N18.9, L29.9, E06.9, E11.65) - BMP (Basic Metabolic Panel) (K85.90, N18.9, L29.9, E06.9, E11.65) - TSH (K85.90, N18.9, L29.9, E06.9, E11.65) This visit was spent in reviewing with the patient their chart, labs and testing, speaking with the patient via telemedicine(video feed), answering questions and completing a plan. 7 min phone only 08/23/2020 09:37:34 ORDERED/ADVISED: Order Date 08-23-2020 - Amylase/Lipase (K85.90, N18.9, L29.9, E06.9, E11.65) - CBC with diff (automated) (K85.90, N18.9, L29.9, E06.9, E11.65) - BMP (Basic Metabolic Panel) (K85.90, N18.9, L29.9, E06.9, E11.65) - TSH (K85.90, N18.9, L29.9, E06.9, E11.65) This visit was spent in reviewing with the patient their chart, labs and testing, speaking with the patient via telemedicine(video feed), answering questions and completing a plan. 7 min phone only 08/15/2020 08:57:07 PRESCRIBE: hydrOXYzine hydrochloride 25 mg oral tablet, one po bid prn and two po at hs, # 60, RF: 2. (Transmitted by Colleen Huang DO) ORDERED/ADVISED: Order Date 08-15-2020 - CBC with diff (automated) (K85.90, E11.65) - CMP (Complete Metabolic Panel) (K85.90, E11.65) - Amylase/Lipase (generalized itching) (K85.90, E11.65) use oil based moisturizer for skin over the short run. 11 minute video feed 08/15/2020 08:57:07 PRESCRIBE: hydrOXYzine hydrochloride 25 mg oral tablet, one po bid prn and two po at hs, # 60, RF: 2. (Transmitted by Colleen Huang DO) ORDERED/ADVISED: Order Date 08-15-2020 - CBC with diff (automated) (K85.90, E11.65) - CMP (Complete Metabolic Panel) (K85.90, E11.65) - Amylase/Lipase (generalized itching) (K85.90, E11.65) use oil based moisturizer for skin over the short run. 11 minute video feed 08/15/2020 08:57:07 PRESCRIBE: hydrOXYzine hydrochloride 25 mg oral tablet, one po bid prn and two po at hs, # 60, RF: 2. (Transmitted by Colleen Huang DO) ORDERED/ADVISED: Order Date 08-15-2020 - CBC with diff (automated) (K85.90, E11.65) - CMP (Complete Metabolic Panel) (K85.90, E11.65) - Amylase/Lipase (generalized itching) (K85.90, E11.65) use oil based moisturizer for skin over the short run. 11 minute video feed 08/14/2020 09:42:50 ADDED Current Meds: atorvastatin 10 mg oral tablet, one po hs daily, # 0, RF: 0. REMOVED from Current Meds: amoxicillin 500 mg oral tablet, one po tid, # 30, RF: 0. (Transmitted by Colleen Huang DO) Date Prescribed: 09/08/2019 PRESCRIBE: metFORMIN 500 mg oral tablet, one po bid, RF: 3. REMOVED from Current Meds: Trulicity Pen 1.5 mg/0.5 mL subcutaneous solution, use one dose weekly as directed, # 18, RF: 3. (Transmitted by Colleen Huang DO) Date Prescribed: 08/13/2019 ADDED Current Meds: HumaLOG 100 units/mL injectable solution, 6 units this am for sugar of 220....he has a sliding scale, # 0, RF: 0. PROVIDED HM: Assess Adult Immunization Status Given: he has had a pneumonia shot and flushot PROVIDED HM: Tobacco use counseling and interventions: non- adults Given: NI ORDERED/ADVISED: Order Date 08-14-2020 - Fly Rose (Surgery) ( ?? gallstone pancreatitis) (K85.90, E78.49, E11.65) 32 min facetime 08/14/2020 09:42:50 ADDED Current Meds: atorvastatin 10 mg oral tablet, one po hs daily, # 0, RF: 0. REMOVED from Current Meds: amoxicillin 500 mg oral tablet, one po tid, # 30, RF: 0. (Transmitted by Colleen Huang DO) Date Prescribed: 09/08/2019 PRESCRIBE: metFORMIN 500 mg oral tablet, one po bid, RF: 3. REMOVED from Current Meds: Trulicity Pen 1.5 mg/0.5 mL subcutaneous solution, use one dose weekly as directed, # 18, RF: 3. (Transmitted by Colleen Huang DO) Date Prescribed: 08/13/2019 ADDED Current Meds: HumaLOG 100 units/mL injectable solution, 6 units this am for sugar of 220....he has a sliding scale, # 0, RF: 0. PROVIDED HM: Assess Adult Immunization Status Given: he has had a pneumonia shot and flushot PROVIDED HM: Tobacco use counseling and interventions: non- adults Given: NI ORDERED/ADVISED: Order Date 08-14-2020 - Fly Rose (Surgery) ( ?? gallstone pancreatitis) (K85.90, E78.49, E11.65) 32 min facetime 08/14/2020 09:42:50 ADDED Current Meds: atorvastatin 10 mg oral tablet, one po hs daily, # 0, RF: 0. REMOVED from Current Meds: amoxicillin 500 mg oral tablet, one po tid, # 30, RF: 0. (Transmitted by Colleen Huang DO) Date Prescribed: 09/08/2019 PRESCRIBE: metFORMIN 500 mg oral tablet, one po bid, RF: 3. REMOVED from Current Meds: Trulicity Pen 1.5 mg/0.5 mL subcutaneous solution, use one dose weekly as directed, # 18, RF: 3. (Transmitted by Colleen Huang DO) Date Prescribed: 08/13/2019 ADDED Current Meds: HumaLOG 100 units/mL injectable solution, 6 units this am for sugar of 220....he has a sliding scale, # 0, RF: 0. PROVIDED HM: Assess Adult Immunization Status Given: he has had a pneumonia shot and flushot PROVIDED HM: Tobacco use counseling and interventions: non- adults Given: NI ORDERED/ADVISED: Order Date 08-14-2020 - Fly Rose (Surgery) ( ?? gallstone pancreatitis) (K85.90, E78.49, E11.65) 32 min facetime 05/30/2020 13:09:49 PRESCRIBE: Diflucan 150 mg oral tablet, one po now and repeat in 5 days, # 2, RF: 0. (Transmitted by Colleen Huang DO) PRESCRIBE: Lotrisone 1%-0.05% topical cream, use as directed apply to genital area bid, # 30, RF: 0. (Transmitted by Colleen Huang DO) ORDERED/ADVISED: Order Date 05-30-2020 - Chapincito Richardson (Urology) (N48.1) 05/30/2020 13:09:49 PRESCRIBE: Diflucan 150 mg oral tablet, one po now and repeat in 5 days, # 2, RF: 0. (Transmitted by Colleen Huang DO) PRESCRIBE: Lotrisone 1%-0.05% topical cream, use as directed apply to genital area bid, # 30, RF: 0. (Transmitted by Colleen Huang DO) ORDERED/ADVISED: Order Date 05-30-2020 - Chapincito Richardson (Urology) (N48.1) 05/30/2020 13:09:49 PRESCRIBE: Diflucan 150 mg oral tablet, one po now and repeat in 5 days, # 2, RF: 0. (Transmitted by Colleen Huang DO) PRESCRIBE: Lotrisone 1%-0.05% topical cream, use as directed apply to genital area bid, # 30, RF: 0. (Transmitted by Colleen Huang DO) ORDERED/ADVISED: Order Date 05-30-2020 - Chapincito Richardson (Urology) (N48.1) 03/22/2020 09:10:00 This visit was spent in reviewing with the patient their chart, labs and testing, speaking with the patient via telemedicine(video feed), answering questions and completing a plan. extended conversation. he knows what to do video for 17 min 03/22/2020 09:10:00 This visit was spent in reviewing with the patient their chart, labs and testing, speaking with the patient via telemedicine(video feed), answering questions and completing a plan. extended conversation. he knows what to do video for 17 min 03/22/2020 09:10:00 This visit was spent in reviewing with the patient their chart, labs and testing, speaking with the patient via telemedicine(video feed), answering questions and completing a plan. extended conversation. he knows what to do video for 17 min 03/15/2020 12:24:05 HgA1c is 10.0% Appointment scheduled for a telehealth visit to [facility] on 03/22/2020. 03/15/2020 12:24:05 HgA1c is 10.0% Appointment scheduled for a telehealth visit to [facility] on 03/22/2020. 10/25/2019 08:14:07 Plan printed and provided to patient: ORDERED/ADVISED: Order Date 10-25-2019 - CBC with diff (automated) (N18.2, E11.29, E78.49, Z00.00) - CMP (Complete Metabolic Panel) (N18.2, E11.29, E78.49, Z00.00) - Lipid Panel (N18.2, E11.29, E78.49, Z00.00) ORDERED/ADVISED: Order Date 10-25-2019 - Blood Draw 10/25/2019 08:14:07 Plan printed and provided to patient: ORDERED/ADVISED: Order Date 10-25-2019 - CBC with diff (automated) (N18.2, E11.29, E78.49, Z00.00) - CMP (Complete Metabolic Panel) (N18.2, E11.29, E78.49, Z00.00) - Lipid Panel (N18.2, E11.29, E78.49, Z00.00) ORDERED/ADVISED: Order Date 10-25-2019 - Blood Draw 09/08/2019 08:19:29 Plan printed and provided to patient: PRESCRIBE: amoxicillin 500 mg oral tablet, one po tid, # 30, RF: 0. (Transmitted by Colleen Huang DO) DISCONTINUE: atorvastatin 10 mg oral tablet one po daily, REASON: off for now You didn't lose track You didn't fall off the wagon You had christian You celebrated You enjoyed It's OKAY! Be filled with gratitude. When you and your body are done celebrating, simply return to balance. Balance doesn't include punishment! PROVIDED HM: Recommendations for Testing HgbA1C in Individuals with Diabetes Mellitus Given: 8.6% down from the end june Counseling and coordination of care: time a significant factor for this patient encounter...30minutes FTF Patient understands plan and instructions. Risks and benefits, side effects and expectations of meds expained. 09/08/2019 08:19:29 Plan printed and provided to patient: PRESCRIBE: amoxicillin 500 mg oral tablet, one po tid, # 30, RF: 0. (Transmitted by Colleen Huang DO) DISCONTINUE: atorvastatin 10 mg oral tablet one po daily, REASON: off for now You didn't lose track You didn't fall off the wagon You had christian You celebrated You enjoyed It's OKAY! Be filled with gratitude. When you and your body are done celebrating, simply return to balance. Balance doesn't include punishment! PROVIDED HM: Recommendations for Testing HgbA1C in Individuals with Diabetes Mellitus Given: 8.6% down from the end of 09/08/2019 08:19:29 Plan printed and provided to patient: PRESCRIBE: amoxicillin 500 mg oral tablet, one po tid, # 30, RF: 0. (Transmitted by Colleen Reina, DO) DISCONTINUE: atorvastatin 10 mg oral tablet one po daily, REASON: off for now You didn't lose track You didn't fall off the wagon You had christian You celebrated You enjoyed It's OKAY! Be filled with gratitude. When you and your body are done celebrating, simply return to balance. Balance doesn't include punishment! PROVIDED HM: Recommendations for Testing HgbA1C in Individuals with Diabetes Mellitus Given: 8.6% down from 9 the end of 08/13/2019 13:55:58 Plan printed and provided to patient: PRESCRIBE: Trulicity Pen 1.5 mg/0.5 mL subcutaneous solution, use one dose weekly as directed, # 18, RF: 3. (Transmitted by Colleen Huang, DO) PRESCRIBE: sertraline 100 mg oral tablet, two po daily, # 180, RF: 3. (Transmitted by Colleen Ackworth, DO) PRESCRIBE: metFORMIN 500 mg oral tablet, two po bid, # 360, RF: 3. (Transmitted by Colleen Ackworth, DO) PRESCRIBE: lisinopril 10 mg oral tablet, one po daily, # 90, RF: 3. (Transmitted by Colleen Reina, DO) PRESCRIBE: Linzess 145 mcg oral capsule, one po daily prn constipation, # 90, RF: 3. (Transmitted by Colleen Huang, DO) PRESCRIBE: BD Pen Needle Mini U/F, use as directed for lantus injection, # 200, RF: 3. (Transmitted by Colleen Reina, DO) PRESCRIBE: atorvastatin 10 mg oral tablet, one po daily, # 90, RF: 3. (Transmitted by Colleen Ackworth, DO) CHANGED Current Meds: Trulicity Pen 1.5 mg/0.5 mL subcutaneous solution PROVIDED HM: CDSMP Given: He is doing well with his weight loss and diabetes PROVIDED HM: Recommendations for Testing HgbA1C in Individuals with Diabetes Mellitus Given: 9% PROVIDED HM: Tobacco use counseling and interventions: non- adults Given: NI PROVIDED HM: Screening for Depression in Adults Given: lots of stress PROVIDED HM: Screening for Anxiety Given: lots of issues PROVIDED HM: High Blood Pressure in Adults: Screening Given: 110/64 PROVIDED VACCINATION: 1 dose of Flucelvax Quadrivalent, 0.5 mL IM in the Left Deltoid (Mfg: SEQIRUS lot no. [id number], expires 02/29/2020) ORDERED/ADVISED: Order Date 08-13-2019 - Ultrasound Aorta (I10) PROVIDED HM: CDSMP Given: No carb keto bread one fourth cup almond flour one fourth tsp baking powder mix these two one egg and two tbsp olive olive mix these Add together into microable mcdonnell and micro 90 seconds PROVIDED HM: Screening and Behavioral Counseling Interventions in Primary Care to Reduce Alcohol Misuse in Adults Given: NI 08/13/2019 13:55:58 Plan printed and provided to patient: PRESCRIBE: Trulicity Pen 1.5 mg/0.5 mL subcutaneous solution, use one dose weekly as directed, # 18, RF: 3. (Transmitted by Colleen Huang, DO) PRESCRIBE: sertraline 100 mg oral tablet, two po daily, # 180, RF: 3. (Transmitted by Colleen Huang, DO) PRESCRIBE: metFORMIN 500 mg oral tablet, two po bid, # 360, RF: 3. (Transmitted by Colleen Huang, DO) PRESCRIBE: lisinopril 10 mg oral tablet, one po daily, # 90, RF: 3. (Transmitted by Colleen Huang, DO) PRESCRIBE: Linzess 145 mcg oral capsule, one po daily prn constipation, # 90, RF: 3. (Transmitted by Colleen Huang, DO) PRESCRIBE: BD Pen Needle Mini U/F, use as directed for lantus injection, # 200, RF: 3. (Transmitted by Colleen Huang, DO) PRESCRIBE: atorvastatin 10 mg oral tablet, one po daily, # 90, RF: 3. (Transmitted by Colleen Huang, DO) CHANGED Current Meds: Trulicity Pen 1.5 mg/0.5 mL subcutaneous solution PROVIDED HM: CDSMP Given: He is doing well with his weight loss and diabetes PROVIDED HM: Recommendations for Testing HgbA1C in Individuals with Diabetes Mellitus Given: 9% PROVIDED HM: Tobacco use counseling and interventions: non- adults Given: NI PROVIDED HM: Screening for Depression in Adults Given: lots of stress PROVIDED HM: Screening for Anxiety Given: lots of issues PROVIDED HM: High Blood Pressure in Adults: Screening Given: /64 PROVIDED VACCINATION: 1 dose of Flucelvax Quadrivalent, 0.5 mL IM in the Left Deltoid (Mfg: SEQIRUS lot no. [id number], expires 02/29/2020) ORDERED/ADVISED: Order Date 08-13-2019 - Ultrasound Aorta (I10) PROVIDED HM: CDSMP Given: No carb keto bread one fourth cup almond flour one fourth tsp baking powder mix these two one egg and two tbsp olive olive mix these Add together into microable mcdonnell and micro 90 seconds PROVIDED HM: Screening and Behavioral Counseling Interventions in Primary Care to Reduce Alcohol Misuse in Adults Given: NI 08/13/2019 13:55:58 Plan printed and provided to patient: PRESCRIBE: Trulicity Pen 1.5 mg/0.5 mL subcutaneous solution, use one dose weekly as directed, # 18, RF: 3. (Transmitted by Colleen Huang, DO) PRESCRIBE: sertraline 100 mg oral tablet, two po daily, # 180, RF: 3. (Transmitted by Colleen Huang, DO) PRESCRIBE: metFORMIN 500 mg oral tablet, two po bid, # 360, RF: 3. (Transmitted by Colleen Huang, DO) PRESCRIBE: lisinopril 10 mg oral tablet, one po daily, # 90, RF: 3. (Transmitted by Colleen Huang, DO) PRESCRIBE: Linzess 145 mcg oral capsule, one po daily prn constipation, # 90, RF: 3. (Transmitted by Colleen Huang, DO) PRESCRIBE: BD Pen Needle Mini U/F, use as directed for lantus injection, # 200, RF: 3. (Transmitted by Colleen Huang, DO) PRESCRIBE: atorvastatin 10 mg oral tablet, one po daily, # 90, RF: 3. (Transmitted by Colleen Ackworth, ) CHANGED Current Meds: Trulicity Pen 1.5 mg/0.5 mL subcutaneous solution PROVIDED HM: CDSMP Given: He is doing well with his weight loss and diabetes PROVIDED HM: Recommendations for Testing HgbA1C in Individuals with Diabetes Mellitus Given: 9% PROVIDED HM: Tobacco use counseling and interventions: non- adults Given: NI PROVIDED HM: Screening for Depression in Adults Given: lots of stress PROVIDED HM: Screening for Anxiety Given: lots of issues PROVIDED HM: High Blood Pressure in Adults: Screening Given: 110/64 PROVIDED VACCINATION: 1 dose of Flucelvax Quadrivalent, 0.5 mL IM in the Left Deltoid (Mfg: SEQIRUS lot no. [id number], expires 02/29/2020) ORDERED/ADVISED: Order Date 08-13-2019 - Ultrasound Aorta (I10) PROVIDED HM: CDSMP Given: No carb keto bread one fourth cup almond flour one fourth tsp baking powder mix these two one egg and two tbsp olive olive mix these Add together into microable mcdonnell and micro 90 seconds PROVIDED HM: Screening and Behavioral Counseling Interventions in Primary Care to Reduce Alcohol Misuse in Adults Given: NI 06/18/2019 09:23:34 Plan printed and provided to patient: PRESCRIBE: ibuprofen 800 mg oral tablet, one po tid with food, # 90, RF: 1. (Transmitted by Colleen Huang DO) New sneaker PROVIDED HM: CDSMP Given: "the obesity code", " the diabetes code", and "quide to fasting" by Flakito Estes MD You can download a [employer] melba to your computer and get these books on [employer]. Watch the movie "the magic pill" documentary on [employer] and watch it Counseling and coordination of care: time a significant factor for this patient encounter...30minutes FTF 06/18/2019 09:23:34 Plan printed and provided to patient: PRESCRIBE: ibuprofen 800 mg oral tablet, one po tid with food, # 90, RF: 1. (Transmitted by Colleen Huang DO) New sneaker PROVIDED HM: CDSMP Given: "the obesity code", " the diabetes code", and "quide to fasting" by Flakito Estes MD You can download a Ranovus melba to your computer and get these books on [employer]. Watch the movie "the magic pill" documentary on [employer] and watch it 06/18/2019 09:23:34 Plan printed and provided to patient: PRESCRIBE: ibuprofen 800 mg oral tablet, one po tid with food, # 90, RF: 1. (Transmitted by Colleen Huang DO) New snearani PROVIDED HM: CDSMP Given: "the obesity code", " the diabetes code", and "quide to fasting" by Flakito Estes MD You can download a Ranovus melba to your computer and get these books on [employer]. Watch the movie "the magic pill" documentary on [employer] and watch it 03/24/2019 08:14:04 Plan printed and provided to patient: PROVIDED HM: CDSMP Given: "the obesity code", " the diabetes code", and "quide to fasting" by Flakito Estes MD You can download a sylvia melba to your iphone for free. then you can go to [employer] and download books at a reduced jean. Watch the movie called "the magic pill" PROVIDED HM: Recommendations for Testing HgbA1C in Individuals with Diabetes Mellitus Given: 8.1% Counseling and coordination of care: time a significant factor for this patient encounter...35minutes FTF 03/24/2019 08:14:04 Plan printed and provided to patient: PROVIDED HM: CDSMP Given: "the obesity code", " the diabetes code", and "quide to fasting" by Flakito Estes MD You can download a sylvia melba to your iphone for free. then you can go to [employer] and download books at a reduced jean. Watch the movie called "the magic pill" PROVIDED HM: Recommendations for Testing HgbA1C in Individuals with Diabetes Mellitus Given: 8.1% Counseling and coordination of care: time a significant factor for this patient encounter...30minutes FTF 03/24/2019 08:14:04 Plan printed and provided to patient: PROVIDED HM: CDSMP Given: "the obesity code", " the diabetes code", and "quide to fasting" by Flakito Estes MD You can download a sylvia melba to your iphone for free. then you can go to [employer] and download books at a reduced jean. Watch the movie called "the magic pill" PROVIDED HM: Recommendations for Testing HgbA1C in Individuals with Diabetes Mellitus Given: 8.1% Counseling and coordination of care: time a significant factor for this patient encounter...30minutes FT 12/14/2018 08:01:40 PRESCRIBE: ibuprofen 800 mg oral tablet, one po tid with food, # 90, RF: 1. (Transmitted by Colleen Huang, ) PRESCRIBE: BD Pen Needle Mini U/F, use as directed for lantus injection, # 200, RF: 3. (Transmitted by Colleen Huang, DO) PRESCRIBE: Lantus Solostar Pen 100 units/mL subcutaneous solution, 14 units sq daily, # 5, RF: 5. (Transmitted by Colleen Reina, ) PRESCRIBE: Lantus Solostar Pen 100 units/mL subcutaneous solution, 14 units sq daily, # 5, RF: 0. PRESCRIBE: metFORMIN 500 mg oral tablet, two po bid, # 360, RF: 2. (Transmitted by Colleen Huang, DO) PRESCRIBE: metFORMIN 500 mg oral tablet, two po bid, # 120 , RF: 2. If it hurts don't do it. Motion is lotion. Need to do daily excercise program.....15minutes three times/day. Every day. Moist heat/ice. use motrin for pain PT eval and treat. stop eating cookies and candy bars!!!!! ORDERED/ADVISED: Order Date 12-14-2018 - BMP (Basic Metabolic Panel) (E11.29) PROVIDED HM: Recommendations for Testing HgbA1C in Individuals with Diabetes Mellitus Given: 9.6% Counseling and coordination of care: time a significant factor for this patient encounter...25minutes FTF 12/14/2018 08:01:40 PRESCRIBE: ibuprofen 800 mg oral tablet, one po tid with food, # 90, RF: 1. (Transmitted by Colleen Reina, ) PRESCRIBE: BD Pen Needle Mini U/F, use as directed for lantus injection, # 200, RF: 3. (Transmitted by Colleen Huang, ) PRESCRIBE: Lantus Solostar Pen 100 units/mL subcutaneous solution, 14 units sq daily, # 5, RF: 5. (Transmitted by Colleen Huang, ) PRESCRIBE: Lantus Solostar Pen 100 units/mL subcutaneous solution, 14 units sq daily, # 5, RF: 0. PRESCRIBE: metFORMIN 500 mg oral tablet, two po bid, # 360, RF: 2. (Transmitted by Colleen Reina, ) PRESCRIBE: metFORMIN 500 mg oral tablet, two po bid, # 120 , RF: 2. If it hurts don't do it. Motion is lotion. Need to do daily excercise program.....15minutes three times/day. Every day. Moist heat/ice. use motrin for pain PT eval and treat. stop eating cookies and candy bars!!!!! ORDERED/ADVISED: Order Date 12-14-2018 - BMP (Basic Metabolic Panel) (E11.29) PROVIDED HM: Recommendations for Testing HgbA1C in Individuals with Diabetes Mellitus Given: 9.6% 12/14/2018 08:01:40 PRESCRIBE: ibuprofen 800 mg oral tablet, one po tid with food, # 90, RF: 1. (Transmitted by Colleen Huang DO) PRESCRIBE: BD Pen Needle Mini U/F, use as directed for lantus injection, # 200, RF: 3. (Transmitted by Colleen Huang DO) PRESCRIBE: Lantus Solostar Pen 100 units/mL subcutaneous solution, 14 units sq daily, # 5, RF: 5. (Transmitted by Colleen Huang DO) PRESCRIBE: Lantus Solostar Pen 100 units/mL subcutaneous solution, 14 units sq daily, # 5, RF: 0. PRESCRIBE: metFORMIN 500 mg oral tablet, two po bid, # 360, RF: 2. (Transmitted by Colleen Huang DO) PRESCRIBE: metFORMIN 500 mg oral tablet, two po bid, # 120 , RF: 2. If it hurts don't do it. Motion is lotion. Need to do daily excercise program.....15minutes three times/day. Every day. Moist heat/ice. use motrin for pain PT eval and treat. stop eating cookies and candy bars!!!!! ORDERED/ADVISED: Order Date 12-14-2018 - BMP (Basic Metabolic Panel) (E11.29) PROVIDED HM: Recommendations for Testing HgbA1C in Individuals with Diabetes Mellitus Given: 9.6% 09/07/2018 08:17:34 BACK STAYER recheck in 3 months PROVIDED HM: Recommendations for Testing HgbA1C in Individuals with Diabetes Mellitus Given: 6.9% 09/07/2018 08:17:34 BACK STAYER recheck in 3 months 07/20/2018 13:54:05 Plan printed and provided to patient: PRESCRIBE: Trulicity Pen 1.5 mg/0.5 mL subcutaneous solution, use one dose weekly as directed, # 12, RF: 3. (Transmitted by Colleen Huang DO) PRESCRIBE: sertraline 100 mg oral tablet, one po daily, # 90, RF: 3. (Transmitted by Colleen Huang DO) PRESCRIBE: metFORMIN 500 mg oral tablet, one po bid pc, # 180, RF: 3. (Trans mitted by Colleen Huang DO) PRESCRIBE: lisinopril 10 mg oral tablet, one po daily, # 90, RF: 3. (Transmitted by Colleen Huang DO) PRESCRIBE: Linzess 145 mcg oral capsule, one po daily prn constipation, # 90, RF: 3. (Transmitted by Colleen Huang DO) PRESCRIBE: atorvastatin 10 mg oral tablet, one po daily, # 90, RF: 3. (Transmitted by Colleen Huang DO) CHANGED Current Meds: Trulicity Pen 1.5 mg/0.5 mL subcutaneous solution REMOVED from Current Meds: Lantus Solostar Pen 100 units/mL subcutaneous solution, 14 units sq daily, # 5, RF: 0. (Transmitted by Colleen Huang DO) Date Prescribed: 06/26/2018 REMOVED from Current Meds: HumaLOG KwikPen 100 units/mL injectable solution, 10 units sq with meals, Date Prescribed: 03/27/2018 PROVIDED: Patient Education (07/20/2018) ORDERED/ADVISED: Order Date 07-20-2018 - Estrella Alvarez (Surgery) (colonoscopy) (E11.29, Z00.00) PROVIDED HM: High Blood Pressure in Adults: Screening Given: 124/70 PROVIDED HM: Screening for Depression in Adults Given: Neg PROVIDED HM: Recommendations for Testing HgbA1C in Individuals with Diabetes Mellitus Given: 6.9% PROVIDED HM: Screening and Behavioral Counseling Interventions in Primary Care to Reduce Alcohol Misuse in Adults Given: NI ORDERED/ADVISED: Order Date 07-20-2018 - Ultrasound Aorta (Z00.00) ORDERED/ADVISED: Order Date 07-20-2018 - Urine microalbumin (E11.29) Return for fasting labs in 07/20/2018 13:54:05 Plan printed and provided to patient: PRESCRIBE: Trulicity Pen 1.5 mg/0.5 mL subcutaneous solution, use one dose weekly as directed, # 12, RF: 3. (Transmitted by Colleen Huang DO) PRESCRIBE: sertraline 100 mg oral tablet, one po daily, # 90, RF: 3. (Transmitted by Colleen Hunag DO) PRESCRIBE: metFORMIN 500 mg oral tablet, one po bid pc, # 180, RF: 3. (Trans mitted by Colleen Huang DO) PRESCRIBE: lisinopril 10 mg oral tablet, one po daily, # 90, RF: 3. (Transmitted by Colleen Huang DO) PRESCRIBE: Linzess 145 mcg oral capsule, one po daily prn constipation, # 90, RF: 3. (Transmitted by Colleen Huang DO) PRESCRIBE: atorvastatin 10 mg oral tablet, one po daily, # 90, RF: 3. (Transmitted by Colleen Huang DO) CHANGED Current Meds: Trulicity Pen 1.5 mg/0.5 mL subcutaneous solution REMOVED from Current Meds: Lantus Solostar Pen 100 units/mL subcutaneous solution, 14 units sq daily, # 5, RF: 0. (Transmitted by Colleen Huang DO) Date Prescribed: 06/26/2018 REMOVED from Current Meds: HumaLOG KwikPen 100 units/mL injectable solution, 10 units sq with meals, Date Prescribed: 03/27/2018 PROVIDED: Patient Education (07/20/2018) ORDERED/ADVISED: Order Date 07-20-2018 - Estrella Alvarez (Surgery) (colonoscopy) (E11.29, Z00.00) PROVIDED HM: High Blood Pressure in Adults: Screening Given: 124/70 PROVIDED HM: Screening for Depression in Adults Given: Neg PROVIDED HM: Recommendations for Testing HgbA1C in Individuals with Diabetes Mellitus Given: 6.9% PROVIDED HM: Screening and Behavioral Counseling Interventions in Primary Care to Reduce Alcohol Misuse in Adults Given: NI ORDERED/ADVISED: Order Date 07-20-2018 - Ultrasound Aorta (Z00.00) ORDERED/ADVISED: Order Date 07-20-2018 - Urine microalbumin (E11.29) Return for fasting labs in 07/20/2018 13:54:05 Plan printed and provided to patient: PRESCRIBE: Trulicity Pen 1.5 mg/0.5 mL subcutaneous solution, use one dose weekly as directed, # 12, RF: 3. (Transmitted by Colleen Huang DO) PRESCRIBE: sertraline 100 mg oral tablet, one po daily, # 90, RF: 3. (Transmitted by Colleen Huang DO) PRESCRIBE: metFORMIN 500 mg oral tablet, one po bid pc, # 180, RF: 3. (Trans mitted by Colleen Huang DO) PRESCRIBE: lisinopril 10 mg oral tablet, one po daily, # 90, RF: 3. (Transmitted by Colleen Huang DO) PRESCRIBE: Linzess 145 mcg oral capsule, one po daily prn constipation, # 90, RF: 3. (Transmitted by Colleen Huang DO) PRESCRIBE: atorvastatin 10 mg oral tablet, one po daily, # 90, RF: 3. (Transmitted by Colleen Huang DO) CHANGED Current Meds: Trulicity Pen 1.5 mg/0.5 mL subcutaneous solution REMOVED from Current Meds: Lantus Solostar Pen 100 units/mL subcutaneous solution, 14 units sq daily, # 5, RF: 0. (Transmitted by Colleen Huang DO) Date Prescribed: 06/26/2018 REMOVED from Current Meds: HumaLOG KwikPen 100 units/mL injectable solution, 10 units sq with meals, Date Prescribed: 03/27/2018 PROVIDED: Patient Education (07/20/2018) ORDERED/ADVISED: Order Date 07-20-2018 - Estrella Alvarez (Surgery) (colonoscopy) (E11.29, Z00.00) PROVIDED HM: High Blood Pressure in Adults: Screening Given: 124/70 PROVIDED HM: Screening for Depression in Adults Given: Neg PROVIDED HM: Recommendations for Testing HgbA1C in Individuals with Diabetes Mellitus Given: 6.9% PROVIDED HM: Screening and Behavioral Counseling Interventions in Primary Care to Reduce Alcohol Misuse in Adults Given: NI ORDERED/ADVISED: Order Date 07-20-2018 - Ultrasound Aorta (Z00.00) ORDERED/ADVISED: Order Date 07-20-2018 - Urine microalbumin (E11.29) Return for fasting labs in 06/03/2018 08:23:02 Plan printed and provided to patient: REMOVED from Current Meds: Augmentin 875 mg-125 mg oral tablet, one po bid, # 14, RF: 0. (Transmitted by Colleen Huang DO) Date Prescribed: 12/26/2017 Motion is lotion If it hurts don't do it. Ibuprofen or aleve Counseling and coordination of care: time a significant factor for this patient encounter...30minutes FTF PROVIDED HM: Screening for Lung Cancer Given: Quit 20 years 06/03/2018 08:23:02 Plan printed and provided to patient: REMOVED from Current Meds: Augmentin 875 mg-125 mg oral tablet, one po bid, # 14, RF: 0. (Transmitted by Colleen Huang DO) Date Prescribed: 12/26/2017 Motion is lotion If it hurts don't do it. Ibuprofen or aleve PROVIDED HM: Screening for Lung Cancer Given: Quit 20 years 06/03/2018 08:23:02 Plan printed and provided to patient: REMOVED from Current Meds: Augmentin 875 mg-125 mg oral tablet, one po bid, # 14, RF: 0. (Transmitted by Colleen Huang DO) Date Prescribed: 12/26/2017 Motion is lotion If it hurts don't do it. Ibuprofen or aleve PROVIDED HM: Screening for Lung Cancer Given: Quit 20 years 03/27/2018 08:56:44 Plan printed and provided to patient: PRESCRIBE: HumaLOG KwikPen 100 units/mL injectable solution, 10 units sq with meals, If any problems give me a call 03/27/2018 08:56:44 Plan printed and provided to patient: PRESCRIBE: HumaLOG KwikPen 100 units/mL injectable solution, 10 units sq with meals, If any problems give me a call 03/27/2018 08:56:44 Plan printed and provided to patient: PRESCRIBE: HumaLOG KwikPen 100 units/mL injectable solution, 10 units sq with meals, If any problems give me a call 12/26/2017 08:55:27 PRESCRIBE: Augmentin 875 mg-125 mg oral tablet, one po bid, # 14, RF: 0. (Transmitted by Colleen Huang DO) Plan printed and provided to patient: Push clear liquids like gatorade, gingerale, chicken broth, sherbet, jello today and advance as tolerated to pudding, ice cream, toast, saltines, egg custard. Start solid food gradually after about 48 hours. PROVIDED HM: Recommendations for Testing HgbA1C in Individuals with Diabetes Mellitus Given: 7.8% 12/26/2017 08:55:27 PRESCRIBE: Augmentin 875 mg-125 mg oral tablet, one po bid, # 14, RF: 0. (Transmitted by Colleen Huang DO) Plan printed and provided to patient: Push clear liquids like gatorade, gingerale, chicken broth, sherbet, jello today and advance as tolerated to pudding, ice cream, toast, saltines, egg custard. Start solid food gradually after about 48 hours. PROVIDED HM: Recommendations for Testing HgbA1C in Individuals with Diabetes Mellitus Given: 7.8% 12/26/2017 08:55:27 PRESCRIBE: Augmentin 875 mg-125 mg oral tablet, one po bid, # 14, RF: 0. (Transmitted by Colleen Huang DO) Plan printed and provided to patient: Push clear liquids like gatorade, gingerale, chicken broth, sherbet, jello today and advance as tolerated to pudding, ice cream, toast, saltines, egg custard. Start solid food gradually after about 48 hours. PROVIDED HM: Recommendations for Testing HgbA1C in Individuals with Diabetes Mellitus Given: 7.8% 09/24/2017 08:27:29 Plan printed and provided to patient: REMOVED from Current Meds: glipiZIDE 10 mg oral tablet, one po daily, # 90, RF: 3. (Transmitted by Colleen Huang DO) Date Prescribed: 06/02/2017 I want you to cut this in half when you start the trulicity and then cut it out when you increase the trulicity dose in a month. Please call me if you have any problems with this. PRESCRIBE: Trulicity Pen 1.5 mg/0.5 mL subcutaneous solution, use one dose weekly as directed, # 4, RF: 5. (Transmitted by Colleen Huang DO) when previous script is completed. PRESCRIBE: Trulicity Pen 0.75 mg/0.5 mL subcutaneous solution, inject 0.75mg sq weekly for 4 weeks and then go to higher dose, # 4, RF: 0. (Transmitted by Colleen Huang, ) PROVIDED HM: Recommendations for Testing HgbA1C in Individuals with Diabetes Mellitus Given: 8.5% PROVIDED HM: Tobacco use counseling and interventions: non- adults Given: NI 09/24/2017 08:27:29 Plan printed and provided to patient: REMOVED from Current Meds: glipiZIDE 10 mg oral tablet, one po daily, # 90, RF: 3. (Transmitted by Colleen Huang, ) Date Prescribed: 06/02/2017 I want you to cut this in half when you start the trulicity and then cut it out when you increase the trulicity dose in a month. Please call me if you have any problems with this. PRESCRIBE: Trulicity Pen 1.5 mg/0.5 mL subcutaneous solution, use one dose weekly as directed, # 4, RF: 5. (Transmitted by Colleen Huang DO) when previous script is completed. PRESCRIBE: Trulicity Pen 0.75 mg/0.5 mL subcutaneous solution, inject 0.75mg sq weekly for 4 weeks and then go to higher dose, # 4, RF: 0. (Transmitted by Colleen Huang DO) PROVIDED HM: Recommendations for Testing HgbA1C in Individuals with Diabetes Mellitus Given: 8.5% PROVIDED HM: Tobacco use counseling and interventions: non- adults Given: NI 09/24/2017 08:27:29 Plan printed and provided to patient: REMOVED from Current Meds: glipiZIDE 10 mg oral tablet, one po daily, # 90, RF: 3. (Transmitted by Colleen Huang DO) Date Prescribed: 06/02/2017 I want you to cut this in half when you start the trulicity and then cut it out when you increase the trulicity dose in a month. Please call me if you have any problems with this. PRESCRIBE: Trulicity Pen 1.5 mg/0.5 mL subcutaneous solution, use one dose weekly as directed, # 4, RF: 5. (Transmitted by Colleen Huang DO) when previous script is completed. PRESCRIBE: Trulicity Pen 0.75 mg/0.5 mL subcutaneous solution, inject 0.75mg sq weekly for 4 weeks and then go to higher dose, # 4, RF: 0. (Transmitted by Colleen Huang DO) PROVIDED HM: Recommendations for Testing HgbA1C in Individuals with Diabetes Mellitus Given: 8.5% PROVIDED HM: Tobacco use counseling and interventions: non- adults Given: NI 06/02/2017 08:22:37 Plan printed and provided to patient: PRESCRIBE: sertraline 100 mg oral tablet, one po daily, # 90, RF: 3. (Transmitted by Colleen Huang DO) PRESCRIBE: ProAir HFA 90 mcg/inh inhalation aerosol, two puffs qid prn wheeze, # 1, RF: 3. (Transmitted by Colleen Huang DO) PRESCRIBE: metFORMIN 500 mg oral tablet, one po bid pc, # 180, RF: 3. (Transmitted by Colleen Huang DO) PRESCRIBE: lisinopril 10 mg oral tablet, one po daily, # 90, RF: 3. (Transmitted by Colleen Huang DO) PRESCRIBE: Linzess 145 mcg oral capsule, one po daily prn constipation, # 90, RF: 3. (Transmitted by Colleen Reina, DO) PRESCRIBE: Lantus Solostar Pen 100 units/mL subcutaneous solution, 25 units hs daily, # 5, RF: 5. (Transmitted by Colleen Reina, DO) PRESCRIBE: glipiZIDE 10 mg oral tablet, one po daily, # 90, RF: 3. (Transmitted by Colleen Ackworth, DO) PRESCRIBE: BD Pen Needle Mini U/F, use as directed for lantus injection, # 100, RF: 3. (Transmitted by Colleen Reina, DO) PRESCRIBE: atorvastatin 10 mg oral tablet, one po daily, # 90, RF: 3. (Transmitted by ColleenBlendspaceard, DO) He is walking at least a mile a day which is probably why he has such an improved HGBAC. We need to maintain this now. PROVIDED HM: Recommendations for Testing HgbA1C in Individuals with Diabetes Mellitus Given: 7.5% today ORDERED/ADVISED: - Estrella Alvarez (Surgery) (screening colonoscopy) ICD Codes (N18.2, E11.29, E78.4, Z00.00, I10) PROVIDED HM: medication adherence Given: None PROVIDED HM: Screening for Depression in Adults Given: Not present PROVIDED HM: Screening for Hepatitis C Given: Patient has declines this Decision Support. PROVIDED HM: Recommendations for Diabetic Foot Care Given: no problems PROVIDED HM: Screening for Diabetic Neuropathy Given: not present PROVIDED HM: Screening for Diabetic Retinopathy Given: [facility]. eyes are fine per patient PROVIDED HM: Screening and Behavioral Counseling Interventions in Primary Care to Reduce Alcohol Misuse in Adults Given: doesn't drink ETOH PROVIDED HM: DSME Given: Ask: Did you know? For every 1% decrease in HGBAC, there is evidence for 21% decrease in diabetes related complication....14% decrease in risk of TN.....12%decrease risk of stroke...and a 37% decrease risk of microvascular complication(kidney failure/blindness/loss of limb). Advise: if young need tighter control....6% if possible ADA recommends <7% AACE recommend <6.5% If over 75 ok for <8% Where are you? 7.5% today Assess: Where do you want your diabetes numbers to be? about 7% .....we need to maintain .... How do you want to manage this? Do you understand the balance between diet/excercise/medication? make suree to keep up excercise during the winter The tools available for management? What information do you need? Assist: I can get you the information/tools you desire? Can I get you the information/tools you desire? What do we have to work with? Time/Travel/Tastes/Treatments?? Arrange: Blood Bank Business Manager? [email or web address] Supervisor [employer]ating?[email or web address] Pharmacy/Pharmacy benefits Literature? Recipes Diabetes Goff www.[email or web address] www.[email or web address] www.diabeeseducator.org/deap www.ndep.nih.gov www.diabetes.org www.learningaboutdiabetes.org www.diabeticconnect.com www.[employer] www.diabeteswhattAmnisnow.[employer] www.peersforprogress.org [place] Read about tanner 06/02/2017 08:22:37 Plan printed and provided to patient: PRESCRIBE: sertraline 100 mg oral tablet, one po daily, # 90, RF: 3. (Transmitted by Colleen Huang, DO) PRESCRIBE: ProAir HFA 90 mcg/inh inhalation aerosol, two puffs qid prn wheeze, # 1, RF: 3. (Transmitted by Colleen Huang, DO) PRESCRIBE: metFORMIN 500 mg oral tablet, one po bid pc, # 180, RF: 3. (Transmitted by Colleen Huang, DO) PRESCRIBE: lisinopril 10 mg oral tablet, one po daily, # 90, RF: 3. (Transmitted by Colleen Huang, DO) PRESCRIBE: Linzess 145 mcg oral capsule, one po daily prn constipation, # 90, RF: 3. (Transmitted by Colleen Huang, DO) PRESCRIBE: Lantus Solostar Pen 100 units/mL subcutaneous solution, 25 units hs daily, # 5, RF: 5. (Transmitted by Colleen Huang, DO) PRESCRIBE: glipiZIDE 10 mg oral tablet, one po daily, # 90, RF: 3. (Transmitted by Colleen Huang, DO) PRESCRIBE: BD Pen Needle Mini U/F, use as directed for lantus injection, # 100, RF: 3. (Transmitted by Colleen Huang, ) PRESCRIBE: atorvastatin 10 mg oral tablet, one po daily, # 90, RF: 3. (Transmitted by Colleen Huang, ) He is walking at least a mile a day which is probably why he has such an improved HGBAC. We need to maintain this now. PROVIDED HM: Recommendations for Testing HgbA1C in Individuals with Diabetes Mellitus Given: 7.5% today ORDERED/ADVISED: - Estrella Alvarez (Surgery) (screening colonoscopy) ICD Codes (N18.2, E11.29, E78.4, Z00.00, I10) PROVIDED HM: medication adherence Given: None PROVIDED HM: Screening for Depression in Adults Given: Not present PROVIDED HM: Screening for Hepatitis C Given: Patient has declines this Decision Support. PROVIDED HM: Recommendations for Diabetic Foot Care Given: no problems PROVIDED HM: Screening for Diabetic Neuropathy Given: not present PROVIDED HM: Screening for Diabetic Retinopathy Given: [facility]. eyes are fine per patient PROVIDED HM: Screening and Behavioral Counseling Interventions in Primary Care to Reduce Alcohol Misuse in Adults Given: doesn't drink ETOH PROVIDED HM: DSME Given: Ask: Did you know? For every 1% decrease in HGBAC, there is evidence for 21% decrease in diabetes related complication....14% decrease in risk of TN.....12%decrease risk of stroke...and a 37% decrease risk of microvascular complication(kidney failure/blindness/loss of limb). Advise: if young need tighter control....6% if possible ADA recommends <7% AACE recommend <6.5% If over 75 ok for <8% Where are you? 7.5% today Assess: Where do you want your diabetes numbers to be? about 7% .....we need to maintain .... How do you want to manage this? Do you understand the balance between diet/excercise/medication? make suree to keep up excercise during the winter The tools available for management? What information do you need? Assist: I can get you the information/tools you desire? Can I get you the information/tools you desire? What do we have to work with? Time/Travel/Tastes/Treatments?? Arrange: Blood Bank Business Manager? [email or web address] Supervisor [employer]?[email or web address] Pharmacy/Pharmacy benefits Literature? Recipes Diabetes Goff www.[email or web address].org www.[email or web address] www.diabeeseducator.org/deap www.ndep.nih.gov www.diabetes.org www.learningaboutdiabetes.org www.diabeticconnect.com www.[employer] www.diabeteswhattAmnisnow.com www.peersforprogress.org [place] Read about tanenr 06/02/2017 08:22:37 Plan printed and provided to patient: PRESCRIBE: sertraline 100 mg oral tablet, one po daily, # 90, RF: 3. (Transmitted by Colleen Huang, DO) PRESCRIBE: ProAir HFA 90 mcg/inh inhalation aerosol, two puffs qid prn wheeze, # 1, RF: 3. (Transmitted by Colleen Huang, DO) PRESCRIBE: metFORMIN 500 mg oral tablet, one po bid pc, # 180, RF: 3. (Transmitted by Colleen Huang, DO) PRESCRIBE: lisinopril 10 mg oral tablet, one po daily, # 90, RF: 3. (Transmitted by Colleen Huang, DO) PRESCRIBE: Linzess 145 mcg oral capsule, one po daily prn constipation, # 90, RF: 3. (Transmitted by Colleen Huang, DO) PRESCRIBE: Lantus Solostar Pen 100 units/mL subcutaneous solution, 25 units hs daily, # 5, RF: 5. (Transmitted by Colleen Huang, DO) PRESCRIBE: glipiZIDE 10 mg oral tablet, one po daily, # 90, RF: 3. (Transmitted by Colleen Huang, DO) PRESCRIBE: BD Pen Needle Mini U/F, use as directed for lantus injection, # 100, RF: 3. (Transmitted by Colleen Huang, DO) PRESCRIBE: atorvastatin 10 mg oral tablet, one po daily, # 90, RF: 3. (Transmitted by Colleen Huang, DO) He is walking at least a mile a day which is probably why he has such an improved HGBAC. We need to maintain this now. PROVIDED HM: Recommendations for Testing HgbA1C in Individuals with Diabetes Mellitus Given: 7.5% today ORDERED/ADVISED: - Estrella Alvarez (Surgery) (screening colonoscopy) ICD Codes (N18.2, E11.29, E78.4, Z00.00, I10) PROVIDED HM: medication adherence Given: None PROVIDED HM: Screening for Depression in Adults Given: Not present PROVIDED HM: Screening for Hepatitis C Given: Patient has declines this Decision Support. PROVIDED HM: Recommendations for Diabetic Foot Care Given: no problems PROVIDED HM: Screening for Diabetic Neuropathy Given: not present PROVIDED HM: Screening for Diabetic Retinopathy Given: [facility]. eyes are fine per patient PROVIDED HM: Screening and Behavioral Counseling Interventions in Primary Care to Reduce Alcohol Misuse in Adults Given: doesn't drink ETOH PROVIDED HM: DSME Given: Ask: Did you know? For every 1% decrease in HGBAC, there is evidence for 21% decrease in diabetes related complication....14% decrease in risk of TN.....12%decrease risk of stroke...and a 37% decrease risk of microvascular complication(kidney failure/blindness/loss of limb). Advise: if young need tighter control....6% if possible ADA recommends <7% AACE recommend <6.5% If over 75 ok for <8% Where are you? 7.5% today Assess: Where do you want your diabetes numbers to be? about 7% .....we need to maintain .... How do you want to manage this? Do you understand the balance between diet/excercise/medication? make suree to keep up excercise during the winter The tools available for management? What information do you need? Assist: I can get you the information/tools you desire? Can I get you the information/tools you desire? What do we have to work with? Time/Travel/Tastes/Treatments?? Arrange: Blood Bank Business Manager? [email or web address] Supervisor [employer]?[email or web address] Pharmacy/Pharmacy benefits Literature? Recipes Diabetes Goff www.diabetes.org www.ncbde.org www.diabeeseducator.org/deap www.ndep.nih.gov www.diabetes.org www.learningaboutdiabetes.org www.diabeticconnect.com www.[employer] www.diabeteswhattAmnisnow.com www.peersforprogress.org [place] Read about tanner 03/07/2017 09:18:02 Plan printed and provided to patient: PRESCRIBE: oxycodone-acetaminophen 5mg-325mg oral tablet, one po bid prn pain, # 60, RF: 0. PROVIDED HM: Recommendations for Testing HgbA1C in Individuals with Diabetes Mellitus Given: 8.1% ORDERED/ADVISED: - CBC with diff (automated) ICD Codes (M54.9, E11.29, M54.5) - CMP (Complete Metabolic Panel) ICD Codes (M54.9, E11.29, M54.5) - Lipid Panel ICD Codes (M54.9, E11.29, M54.5) - 25 hyrdroxyvitamin D (arthralgias) ICD Codes (M54.9, E11.29, M54.5) ORDERED/ADVISED: - Jassi Gutierrez (Urology) ICD Codes (L23.9, R68.89) 03/07/2017 09:18:02 Plan printed and provided to patient: PRESCRIBE: oxycodone-acetaminophen 5mg-325mg oral tablet, one po bid prn pain, # 60, RF: 0. PROVIDED HM: Recommendations for Testing HgbA1C in Individuals with Diabetes Mellitus Given: 8.1% ORDERED/ADVISED: - CBC with diff (automated) ICD Codes (M54.9, E11.29, M54.5) - CMP (Complete Metabolic Panel) ICD Codes (M54.9, E11.29, M54.5) - Lipid Panel ICD Codes (M54.9, E11.29, M54.5) - 25 hyrdroxyvitamin D (arthralgias) ICD Codes (M54.9, E11.29, M54.5) ORDERED/ADVISED: - Jassi Gutierrez (Urology) ICD Codes (L23.9, R68.89) 03/07/2017 09:18:02 Plan printed and provided to patient: PRESCRIBE: oxycodone-acetaminophen 5mg-325mg oral tablet, one po bid prn pain, # 60, RF: 0. PROVIDED HM: Recommendations for Testing HgbA1C in Individuals with Diabetes Mellitus Given: 8.1% ORDERED/ADVISED: - CBC with diff (automated) ICD Codes (M54.9, E11.29, M54.5) - CMP (Complete Metabolic Panel) ICD Codes (M54.9, E11.29, M54.5) - Lipid Panel ICD Codes (M54.9, E11.29, M54.5) - 25 hyrdroxyvitamin D (arthralgias) ICD Codes (M54.9, E11.29, M54.5) ORDERED/ADVISED: - Jassi Gutierrez (Urology) ICD Codes (L23.9, R68.89) 01/15/2017 08:13:41 Plan printed and provided to patient: PRESCRIBE: oxycodone-acetaminophen 5mg-325mg oral tablet, one po bid prn pain, # 60, RF: 0. PRESCRIBE: Diflucan 150 mg oral tablet, one po now and repeat in 5 days, # 2, RF: 0. (Transmitted by Colleen Huang DO) Lloyd tuttle. PROVIDED HM: High Blood Pressure in Adults: Screening Given: 138/80 PROVIDED HM: DSME Given: Ask: Did you know? For every 1% decrease in HGBAC, there is evidence for 21% decrease in diabetes related complication....14% decrease in risk of TN.....12%decrease risk of stroke...and a 37% decrease risk of microvascular complication(kidney failure/blindness/loss of limb). Advise: if young need tighter control....6% if possible ADA recommends <7% AACE recommend <6.5% If over 75 ok for <8% Where are you? 8.4% pending another in January Assess: Where do you want your diabetes numbers to be? 7's How do you want to manage this?Would like to loose weight Do you understand the balance between diet/excercise/medication? yes The tools available for management? What information do you need? Assist: lloyd Veronica/saroj I can get you the information/tools you desire? Can I get you the information/tools you desire? What do we have to work with? Time/Travel/Tastes/Treatments?? Arrange: Blood Bank Business Manager? [email or web address] Supervisor [employer]?[email or web address] Pharmacy/Pharmacy benefits Literature? Recipes Diabetes Goff www.diabetes.org www.ncbde.org www.diabeeseducator.org/deap www.ndep.nih.gov www.diabetes.org www.learningaboutdiabetes.org www.diabeticconnect.com www.whatAmnisnow.com www.diabeteswhattoknow.com www.peersforprogress.org [place] PROVIDED HM: Obesity: BMI >= 30 Given: Things to remember: Progress not perfection Keep Moving Power in number/social support/group activities Breakfast is most important ....don't skip....sets your metabolism Out of sight /out of mind Be prepared Cut it up veggies ready for snacking Give me more....veggies drink water sleep on it....if craving Just wait 20 minutes Keep a log PROVIDED HM: medication adherence Given: Not an issue Return in January for Hgac 01/15/2017 08:13:41 Plan printed and provided to patient: PRESCRIBE: oxycodone-acetaminophen 5mg-325mg oral tablet, one po bid prn pain, # 60, RF: 0. PRESCRIBE: Diflucan 150 mg oral tablet, one po now and repeat in 5 days, # 2, RF: 0. (Transmitted by Colleen Huang DO) Lloyd tuttle. PROVIDED HM: High Blood Pressure in Adults: Screening Given: 138/80 PROVIDED HM: DSME Given: Ask: Did you know? For every 1% decrease in HGBAC, there is evidence for 21% decrease in diabetes related complication....14% decrease in risk of TN.....12%decrease risk of stroke...and a 37% decrease risk of microvascular complication(kidney failure/blindness/loss of limb). Advise: if young need tighter control....6% if possible ADA recommends <7% AACE recommend <6.5% If over 75 ok for <8% Where are you? 8.4% pending another in January Assess: Where do you want your diabetes numbers to be? 7's How do you want to manage this?Would like to loose weight Do you understand the balance between diet/excercise/medication? yes The tools available for management? What information do you need? Assist: research Jose/saroj I can get you the information/tools you desire? Can I get you the information/tools you desire? What do we have to work with? Time/Travel/Tastes/Treatments?? Arrange: Blood Bank Business Manager? [email or web address] Supervisor [employer]?[email or web address] Pharmacy/Pharmacy benefits Literature? Recipes Diabetes Goff www.diabetes.org www.ncbde.org www.diabeeseducator.org/deap www.ndep.nih.gov www.diabetes.org www.learningaboutdiabetes.org www.diabeticconnect.com www.[employer] www.diabeteswhattAmnisnow.com www.peersforprogress.org [place] PROVIDED HM: Obesity: BMI >= 30 Given: Things to remember: Progress not perfection Keep Moving Power in number/social support/group activities Breakfast is most important ....don't skip....sets your metabolism Out of sight /out of mind Be prepared Cut it up veggies ready for snacking Give me more....veggies drink water sleep on it....if craving Just wait 20 minutes Keep a log PROVIDED HM: medication adherence Given: Not an issue Return in January for Hgac 01/15/2017 08:13:41 Plan printed and provided to patient: PRESCRIBE: oxycodone-acetaminophen 5mg-325mg oral tablet, one po bid prn pain, # 60, RF: 0. PRESCRIBE: Diflucan 150 mg oral tablet, one po now and repeat in 5 days, # 2, RF: 0. (Transmitted by Colleen Huang DO) Research jose and saroj. PROVIDED HM: High Blood Pressure in Adults: Screening Given: 138/80 PROVIDED HM: DSME Given: Ask: Did you know? For every 1% decrease in HGBAC, there is evidence for 21% decrease in diabetes related complication....14% decrease in risk of TN.....12%decrease risk of stroke...and a 37% decrease risk of microvascular complication(kidney failure/blindness/loss of limb). Advise: if young need tighter control....6% if possible ADA recommends <7% AACE recommend <6.5% If over 75 ok for <8% Where are you? 8.4% pending another in January Assess: Where do you want your diabetes numbers to be? 7's How do you want to manage this?Would like to loose weight Do you understand the balance between diet/excercise/medication? yes The tools available for management? What information do you need? Assist: lloyd Veronica/saroj I can get you the information/tools you desire? Can I get you the information/tools you desire? What do we have to work with? Time/Travel/Tastes/Treatments?? Arrange: Blood Bank Business Manager? [email or web address] Supervisor [employer]ating?[email or web address] Pharmacy/Pharmacy benefits Literature? Recipes Diabetes Goff www.diabetes.org www.ncbde.org www.diabeeseducator.org/deap www.ndep.nih.gov www.diabetes.org www.learningaboutdiabetes.org www.diabeticconnect.com www.[employer] www.diabeteswhattAmnisnow.[employer] www.peersforprogress.org [place] PROVIDED HM: Obesity: BMI >= 30 Given: Things to remember: Progress not perfection Keep Moving Power in number/social support/group activities Breakfast is most important ....don't skip....sets your metabolism Out of sight /out of mind Be prepared Cut it up veggies ready for snacking Give me more....veggies drink water sleep on it....if craving Just wait 20 minutes Keep a log PROVIDED HM: medication adherence Given: Not an issue Return in January for Hgac 11/06/2016 08:26:32 Plan printed and provided to patient: PRESCRIBE: oxycodone-acetaminophen 5mg-325mg oral tablet, one po bid prn pain, # 60, RF: 0. PROVIDED HM: CDSMP Given: Google "Addictocarb Carb" Consider the Mediterranean Diet. Eliminate soda.....lose 30 lbs in a year. Urged to walk at least 5 times/week and eat a more plant based diet. DASH diet(Dietary Approaches to Stop High BP Fruits/vegetables/whole grains/Low fat dairy Limit saturated fats/total fat and sodium Recommend foods high in calcium and potassium Vitamin D supplement Things to remember: Progress not perfection Keep Moving Power in number/social support/group activities Breakfast is most important ....don't skip....sets your metabolism Out of sight /out of mind Be prepared Cut it up veggies ready for snacking Give me more....veggies drink water sleep on it....if craving Just wait 20 minutes Keep a log 11/06/2016 08:26:32 Plan printed and provided to patient: PRESCRIBE: oxycodone-acetaminophen 5mg-325mg oral tablet, one po bid prn pain, # 60, RF: 0. PROVIDED HM: CDSMP Given: [employer] "Addictocarb Carb" Consider the Mediterranean Diet. Eliminate soda.....lose 30 lbs in a year. Urged to walk at least 5 times/week and eat a more plant based diet. DASH diet(Dietary Approaches to Stop High BP Fruits/vegetables/whole grains/Low fat dairy Limit saturated fats/total fat and sodium Recommend foods high in calcium and potassium Vitamin D supplement Things to remember: Progress not perfection Keep Moving Power in number/social support/group activities Breakfast is most important ....don't skip....sets your metabolism Out of sight /out of mind Be prepared Cut it up veggies ready for snacking Give me more....veggies drink water sleep on it....if craving Just wait 20 minutes Keep a log 11/06/2016 08:26:32 Plan printed and provided to patient: PRESCRIBE: oxycodone-acetaminophen 5mg-325mg oral tablet, one po bid prn pain, # 60, RF: 0. PROVIDED HM: CDSMP Given: [employer] "Addictocarb Carb" Consider the Mediterranean Diet. Eliminate soda.....lose 30 lbs in a year. Urged to walk at least 5 times/week and eat a more plant based diet. DASH diet(Dietary Approaches to Stop High BP Fruits/vegetables/whole grains/Low fat dairy Limit saturated fats/total fat and sodium Recommend foods high in calcium and potassium Vitamin D supplement Things to remember: Progress not perfection Keep Moving Power in number/social support/group activities Breakfast is most important ....don't skip....sets your metabolism Out of sight /out of mind Be prepared Cut it up veggies ready for snacking Give me more....veggies drink water sleep on it....if craving Just wait 20 minutes Keep a log 09/04/2016 09:23:52 Plan printed and provided to patient: PRESCRIBE: oxyCODONE-acetaminophen 5 mg-325 mg oral tablet, one po bid prn pain, # 60, RF: 0. PRESCRIBE: ProAir HFA 90 mcg/inh inhalation aerosol, two puffs qid prn wheeze, # 1, RF: 1. (Transmitted by Colleen Reina, ) PRESCRIBE: azithromycin 250 mg oral tablet, two po today and one po daily x 4, # 6, RF: 0. (Transmitted by Colleen Ackworth, ) ORDERED/ADVISED: - CXR - PA & Lat ICD Codes (M54.9, J98.01, J84.89) ORDERED/ADVISED: - CBC with diff (automated) ICD Codes (M54.9, J98.01, J84.89) - Atypical pneumonia screen ICD Codes (M54.9, J98.01, J84.89) PROVIDED HM: CDSMP/DSME Given: 1. Healthy Eating: Count Carbs/Read Labels/Measure Servings/Develop an eating plan/Set healthy eating goals. 2. Being Active: Think of things you like to do/Take it slow/Check BS levels/Keep track of Activity/Excercise with a friend/Take a class/Join an adult league 3. Monitoring: Blood sugar/BP/weight/cholesterol/kidney health/eye health/foot health 4. Taking Medication: Diabetes meds/bp meds/cholesterol meds(statins)/vaccinations. Don't forget/Rotate sites/ 5. Problem Solving: Don't beat yourself up/Analyze your day/Learn from it/Discuss possible solutions/Try new solutions 6. Reducing Risks: Don't smoke/Visit eye doc at least once a year/Don't forget the dentist/ Take care of your feet/Listen to your body 7. Healthy Coping: Seek support/Move your body/Think positive/Be good to yourself/ [place] Assn. of Diabetic Educators....7 behaviors for diabetes self management. 09/04/2016 09:23:52 Plan printed and provided to patient: PRESCRIBE: oxyCODONE-acetaminophen 5 mg-325 mg oral tablet, one po bid prn pain, # 60, RF: 0. PRESCRIBE: ProAir HFA 90 mcg/inh inhalation aerosol, two puffs qid prn wheeze, # 1, RF: 1. (Transmitted by Colleen Reina, [employer]) PRESCRIBE: azithromycin 250 mg oral tablet, two po today and one po daily x 4, # 6, RF: 0. (Transmitted by Colleen Ackworth, ) ORDERED/ADVISED: - CXR - PA & Lat ICD Codes (M54.9, J98.01, J84.89) ORDERED/ADVISED: - CBC with diff (automated) ICD Codes (M54.9, J98.01, J84.89) - Atypical pneumonia screen ICD Codes (M54.9, J98.01, J84.89) PROVIDED HM: CDSMP/DSME Given: 1. Healthy Eating: Count Carbs/Read Labels/Measure Servings/Develop an eating plan/Set healthy eating goals. 2. Being Active: Think of things you like to do/Take it slow/Check BS levels/Keep track of Activity/Excercise with a friend/Take a class/Join an adult league 3. Monitoring: Blood sugar/BP/weight/cholesterol/kidney health/eye health/foot health 4. Taking Medication: Diabetes meds/bp meds/cholesterol meds(statins)/vaccinations. Don't forget/Rotate sites/ 5. Problem Solving: Don't beat yourself up/Analyze your day/Learn from it/Discuss possible solutions/Try new solutions 6. Reducing Risks: Don't smoke/Visit eye doc at least once a year/Don't forget the dentist/ Take care of your feet/Listen to your body 7. Healthy Coping: Seek support/Move your body/Think positive/Be good to yourself/ [place] Assn[employer] of Diabetic Educators....7 behaviors for diabetes self management. 09/04/2016 09:23:52 Plan printed and provided to patient: PRESCRIBE: oxyCODONE-acetaminophen 5 mg-325 mg oral tablet, one po bid prn pain, # 60, RF: 0. PRESCRIBE: ProAir HFA 90 mcg/inh inhalation aerosol, two puffs qid prn wheeze, # 1, RF: 1. (Transmitted by Colleen Reina, ) PRESCRIBE: azithromycin 250 mg oral tablet, two po today and one po daily x 4, # 6, RF: 0. (Transmitted by Colleen Huang DO) ORDERED/ADVISED: - CXR - PA & Lat ICD Codes (M54.9, J98.01, J84.89) ORDERED/ADVISED: - CBC with diff (automated) ICD Codes (M54.9, J98.01, J84.89) - Atypical pneumonia screen ICD Codes (M54.9, J98.01, J84.89) PROVIDED HM: CDSMP/DSME Given: 1. Healthy Eating: Count Carbs/Read Labels/Measure Servings/Develop an eating plan/Set healthy eating goals. 2. Being Active: Think of things you like to do/Take it slow/Check BS levels/Keep track of Activity/Excercise with a friend/Take a class/Join an adult league 3. Monitoring: Blood sugar/BP/weight/cholesterol/kidney health/eye health/foot health 4. Taking Medication: Diabetes meds/bp meds/cholesterol meds(statins)/vaccinations. Don't forget/Rotate sites/ 5. Problem Solving: Don't beat yourself up/Analyze your day/Learn from it/Discuss possible solutions/Try new solutions 6. Reducing Risks: Don't smoke/Visit eye doc at least once a year/Don't forget the dentist/ Take care of your feet/Listen to your body 7. Healthy Coping: Seek support/Move your body/Think positive/Be good to yourself/ [place] Ass[employer] Diabetic Educators....7 behaviors for diabetes self management. 07/10/2016 08:21:01 CHANGED Current Meds: oxyCODONE-acetaminophen 5 mg-325 mg oral tablet Plan printed and provided to patient: PRESCRIBE: oxyCODONE-acetaminophen 5 mg-325 mg oral tablet, one po bid prn pain, # 60, RF: 0. PROVIDED HM: Recommendations for Testing HgbA1C in Individuals with Diabetes Mellitus Given: 8.1% due to forgetting to take his am meds. PROVIDED HM: Screening for Diabetic Nephropathy Given: on juana will be due with next labs PROVIDED HM: Tobacco use counseling and interventions: non- adults Given: NI 07/10/2016 08:21:01 CHANGED Current Meds: oxyCODONE-acetaminophen 5 mg-325 mg oral tablet Plan printed and provided to patient: PRESCRIBE: oxyCODONE-acetaminophen 5 mg-325 mg oral tablet, one po bid prn pain, # 60, RF: 0. PROVIDED HM: Recommendations for Testing HgbA1C in Individuals with Diabetes Mellitus Given: 8.1% due to forgetting to take his am meds. PROVIDED HM: Screening for Diabetic Nephropathy Given: on juana will be due with next labs PROVIDED HM: Tobacco use counseling and interventions: non- adults Given: 07/10/2016 08:21:01 CHANGED Current Meds: oxyCODONE-acetaminophen 5 mg-325 mg oral tablet Plan printed and provided to patient: PRESCRIBE: oxyCODONE-acetaminophen 5 mg-325 mg oral tablet, one po bid prn pain, # 60, RF: 0. PROVIDED HM: Recommendations for Testing HgbA1C in Individuals with Diabetes Mellitus Given: 8.1% due to forgetting to take his am meds. PROVIDED HM: Screening for Diabetic Nephropathy Given: on juana will be due with next labs PROVIDED HM: Tobacco use counseling and interventions: non- adults Given: 05/15/2016 08:27:09 Plan printed and provided to patient: PROVIDED VACCINATION: 1 dose of Fluvirin, 0.5 mL IM in the Left Deltoid (Mfg: OTHER lot no. [id number], expires 01/08/2017) PROVIDED HM: Screening for Depression in Adults Given: Not present Percoset script to [facility] 05/15/2016 08:27:09 Plan printed and provided to patient: PROVIDED VACCINATION: 1 dose of Fluvirin, 0.5 mL IM in the Left Deltoid (Mfg: OTHER lot no. [id number], exp01/08/2017) PROVIDED HM: Screening for Depression in Adults Given: Not present Percoset script to [facility] 05/15/2016 08:27:09 Plan printed and provided to patient: PROVIDED VACCINATION: 1 dose of Fluvirin, 0.5 mL IM in the Left Deltoid (Mfg: OTHER lot no. [id number], exp01/08/2017) PROVIDED HM: Screening for Depression in Adults Given: Not present Percoset script to [facility] 03/18/2016 08:09:18 Plan printed and provided to patient: PRESCRIBE: oxyCODONE-acetaminophen 5 mg-325 mg oral tablet, one po bid prn pain, # 60, RF: 0. 25minutes FTF PROVIDED HM: Healthy Diet and Physical Activity: Counseling Adults with High Risk of CVD Given: Urged to walk at least 3 times/week and eat a more plant based diet PROVIDED HM: Screening for Colorectal Cancer in Adults Aged 50-75 yrs Given: He is due this year and we will refer to Dr. Alvarez PROVIDED HM: Recommendations for Diabetic Foot Care Given: No problems PROVIDED HM: Screening for Diabetic Retinopathy Given: He goes annually and went 7-8 months ago PROVIDED HM: Screening for Diabetic Neuropathy Given: not present ORDERED/ADVISED: - Urine microalbumin ICD Codes (M54.9, E11.29) - Urine drug screen (oxycodone) ICD Codes (M54.9, E11.29) 01/22/2016 08:23:52 Plan printed and provided to patient: PRESCRIBE: oxyCODONE-acetaminophen 5 mg-325 mg oral tablet, one po bid prn pain, # 60, RF: 0. PRESCRIBE: Lantus Solostar Pen 100 units/mL subcutaneous solution, 25 units hs daily, # 5, RF: 3. (Transmitted by [employer], [employer]) PRESCRIBE: BD Pen Needle Mini U/F, use as directed for lantus injection, # 100, RF: 3. (Transmitted by [employer], [employer]) PRESCRIBE: Linzess 145 mcg oral capsule, one po daily prn constipation, # 90, RF: 3. (Transmitted by [employer]ise[employer], [employer]) PRESCRIBE: Zoloft 100 mg oral tablet, one po daily, # 90, RF: 3. (Transmitted by [employer], [employer]) PRESCRIBE: metFORMIN 500 mg oral tablet, one po bid pc, # 180, RF: 3. (Transmitted by [employer], [employer]) PRESCRIBE: lisinopril 10 mg oral tablet, one po daily, # 90, RF: 3. (Transmitted by [employer], [employer]) PRESCRIBE: glipiZIDE 10 mg oral tablet, one po daily, # 90, RF: 3. (Transmitted by [employer], [employer]) PRESCRIBE: cholecalciferol 50,000 intl units oral capsule, one po weekly, # 12, RF: 3. (Transmitted by [employer], DO) PRESCRIBE: atorvastatin 10 mg oral tablet, one po daily, # 90, RF: 3. (Transmitted by [employer], [employer]) ORDERED/ADVISED: - CBC with diff (automated) ICD Codes (F41.9, E11.29, E78.4) - CMP (Complete Metabolic Panel) ICD Codes (F41.9, E11.29, E78.4) - Lipid Panel ICD Codes (F41.9, E11.29, E78.4) - HGBA1C ICD Codes (F41.9, E11.29, E78.4) ORDERED/ADVISED: - Blood Draw 12/15/2015 12:17:35 Plan printed and provided to patient: PRESCRIBE: Lantus Solostar Pen 100 units/mL subcutaneous solution, 25 units hs daily, # 1, RF: 5. (Transmitted by Colleen Huang, DO) PRESCRIBE: Cortisporin-TC otic suspension, 4 gtts into left EAC bid, # 5, RF: 0. (Transmitted by Colleen Huang, DO) Increase lantus insulin to 24 units hs daily ORDERED/ADVISED: - Ear Wax 11/17/2015 08:15:21 Plan printed and provided to patient: PRESCRIBE: oxyCODONE-acetaminophen 5 mg-325 mg oral tablet, one po bid prn pain, # 60, RF: 0. I meant to reduce this quantity to 30 but doing it electronically caused me to do the wrong quantity. Next time it will be 30 PRESCRIBE: metFORMIN 500 mg oral tablet, one po bid pc, # 180, RF: 0. (Transmitted by Colleen Huagn, DO) PRESCRIBE: lisinopril 10 mg oral tablet, one po daily, # 90, RF: 0. (Transmitted by Colleen Huang, DO) PRESCRIBE: glipiZIDE 10 mg oral tablet, one po daily, # 90, RF: 0. (Transmitted by Colleen Huang, DO) PRESCRIBE: Lantus Solostar Pen 100 units/mL subcutaneous solution, 20 units hs daily, # 1, RF: 5. (Transmitted by Colleen Huang, DO) PRESCRIBE: aspirin 81 mg oral tablet, one daily, # 1, RF: 1. CHANGED Current Meds: Lantus Solostar Pen 100 units/mL subcutaneous solution Get on the stick....NO CANDY and NO BREAD The [employer] Diet discussed at length today. PROVIDED: Patient Education (11/17/2015)[employer] foods PROVIDED HM: Diabetic eye exam Given: He goes frequently and was there about 6 months ago. PROVIDED HM: Screening for High Blood Pressure in Adults Given: 130/90 ORDERED/ADVISED: - Urine microalbumin ICD Codes (E11.29, I10, G47.30) ORDERED/ADVISED: - CBC with diff (automated) ICD Codes (M54.9, E11.29, I10, G47.30) - CMP (Complete Metabolic Panel) ICD Codes (M54.9, E11.29, I10, G47.30) - Lipid Panel ICD Codes (M54.9, E11.29, I10, G47.30) - 25 hyrdroxyvitamin D ICD Codes (M54.9, E11.29, I10, G47.30) - Parathyroid Hormone Level ICD Codes (M54.9, E11.29, I10, G47.30) ORDERED/ADVISED: - Blood Draw ICD Codes (M54.9, E11.29) He wants to reschedule his own sleep study. 09/27/2015 08:29:20 Plan printed and provided to patient: PRESCRIBE: oxyCODONE-acetaminophen 5 mg-325 mg oral tablet, one po bid prn pain, # 60, RF: 0. REMOVED from Current Meds: Klonapin 0,5mg, one or two po hs prn insomnia, # 10, RF: 0. Date Prescribed: 11/05/2013 REMOVED from Current Meds: ciprofloxacin 500 mg oral tablet, one po bid, # 20, RF: 0. Date Prescribed: 08/11/2015 PRESCRIBE: glipiZIDE 10 mg oral tablet, one po daily, # 90, RF: 0. (Transmitted by Colleen Huang DO) PROVIDED HM: Recommendations for Testing HgbA1C in Individuals with Diabetes Mellitus Given: 7.8% ORDERED/ADVISED: - CBC with diff (automated) ICD Codes (M54.9, E11.29, E78.4, Z00.00) - CMP (Complete Metabolic Panel) ICD Codes (M54.9, E11.29, E78.4, Z00.00) - Lipid Panel ICD Codes (M54.9, E11.29, E78.4, Z00.00) - Urine microalbumin ICD Codes (M54.9, E11.29, E78.4, Z00.00) CLINICAL SUMMARY: Declined by Patient (09/27/2015) no email 08/11/2015 08:14:29 Plan printed and provided to patient: PRESCRIBE: ciprofloxacin 500 mg oral tablet, one po bid, # 20, RF: 0. PRESCRIBE: oxyCODONE-acetaminophen 5 mg-325 mg oral tablet, one po bid prn pain, # 60, RF: 0. ORDERED/ADVISED: - Urinalysis. C&S if indicated ICD Codes (M54.9, R30.0) 06/19/2015 08:27:11 Plan printed and provided to patient: PRESCRIBE: oxyCODONE-acetaminophen 5 mg-325 mg oral tablet, one po bid prn pain, # 60, RF: 0. PROVIDED VACCINATION: (Given Elsewhere) Influenza, he will be getting this at work CLINICAL SUMMARY: Declined by Patient (06/19/2015) He does not have email 04/26/2015 08:20:21 Plan printed and provided to patient: PRESCRIBE: oxyCODONE-acetaminophen 5 mg-325 mg oral tablet, one po bid prn pain, # 60, RF: 0. ORDERED/ADVISED: - Celestine Larios (Podiatry) (plantar warts/aodm) ICD Codes (724.5, 250.40) PROVIDED HM: Recommendations for Testing HgbA1C in Individuals with Diabetes Mellitus Given: 7.7% today 01/18/2015 08:11:52 Plan printed and provided to patient: PRESCRIBE: Linzess 145 mcg oral capsule, one po daily prn constipation, # 30, RF: 5. (Transmitted by Colleen Huang DO) PRESCRIBE: oxyCODONE-acetaminophen 5 mg-325 mg oral tablet, one po bid prn pain, # 60, RF: 0. He is testing his sugars and due for hgac in march. 11/30/2014 08:15:54 Instructions printed and provided to patient: PRESCRIBE: metFORMIN 500 mg oral tablet, one po bid pc, # 180, RF: 3. (Transmitted by Colleen Huang DO) PRESCRIBE: glipiZIDE 10 mg oral tablet, one po daily, # 90, RF: 2. (Transmitted by Colleen Huang DO) REMOVED from Current Meds: glipiZIDE 5 mg oral tablet, one po qam, # 90, RF: 3. (Transmitted by Colleen Huang DO) Date Prescribed: 11/08/2014 PRESCRIBE: Zostavax subcutaneous injection, one dose now, # 1, RF: 0. PROVIDED HM: Counseling to Prevent Tobacco Use and Tobacco-Caused Disease in Adults and Women Given: NI PROVIDED HM: Recommendations for Diabetic Foot Care Given: no problems PROVIDED HM: Screening for Diabetic Nephropathy Given: present and on juana PROVIDED HM: Screening for Diabetic Neuropathy Given: not present PROVIDED HM: Screening for Lipid Disorders in Adults (Male) Given: LDL 84 in August PROVIDED HM: Screening for Colorectal Cancer in Adults Aged 50-75 yrs Given: He will be due next year ORDERED/ADVISED: - BMP (Basic Metabolic Panel) ICD9 Codes (585.2, 250.40, 272.4, 401.9) - Parathyroid Hormone Level ICD9 Codes (585.2, 250.40, 272.4, 401.9) - 25 vit D and 1, 25 vit D ICD9 Codes (585.2, 250.40, 272.4, 401.9) PROVIDED HM: Recommendations for Testing HgbA1C in Individuals with Diabetes Mellitus Given: 9.0% today CLINICAL SUMMARY: Declined by Patient (11/30/2014) 10/19/2014 08:22:58 PRESCRIBE: Percoset 5/325mg, one po bid prn pain, # 60, RF: NONE. REMOVED from Current Meds: glipiZIDE 10 mg oral tablet, one po qam, # 90, RF: 1. (Transmitted by Colleen Huang DO) Date Prescribed: 09/14/2014 PRESCRIBE: glipiZIDE 5 mg oral tablet, one po qam, # 90, RF: 3. (Transmitted by Colleen Huang DO) PRESCRIBE: glipiZIDE 5 mg oral tablet, one half po in the am. If BS is up before supper then increase to a whole pill in the am., # 90, RF: 2. Instructions printed and provided to patient: ORDERED/ADVISED: - BMP (Basic Metabolic Panel) ICD9 Codes (585.2, 250.40) - Blood Draw ICD9 Codes (585.2, 250.40) 09/16/2014 14:40:20 Instructions printed and provided to patient: PRESCRIBE: glipiZIDE 5 mg oral tablet, one half po in the am. If BS is up before supper then increase to a whole pill in the am., # 30, RF: 1. (Transmitted by Colleen Huang DO) REMOVED from Current Meds: metFORMIN 1000 mg oral tablet, one po pc breakfast and supper, one half after lunch, # 225, RF: 3. (Transmitted by Colleen Huang DO) Date Prescribed: 03/16/2014 ORDERED/ADVISED: - Custom Order (Estrella missed work on 09/15 and 09/16 and he may return tomorrow. He has had to change his medication for his diabetes and had a low BS reaction.) 09/14/2014 08:40:22 Instructions printed and provided to patient: PRESCRIBE: glipiZIDE 10 mg oral tablet, one po qam, # 90, RF: 1. (Transmitted by Colleen Huang DO) take one half of metformin after lunch and a whole metformin after supper. Increase lantus to 20 units daily in the evening. do labs anytime after the first of feburary. 08/22/2014 08:31:54 Instructions printed and provided to patient: PRESCRIBE: Zoloft 100 mg oral tablet, one po daily, # 90, RF: 1. (Transmitted by Colleen Huang DO) PRESCRIBE: Novofine 31, use for lantus injection daily, # 100, RF: 3. (Transmitted by Colleen Huang DO) PRESCRIBE: Lantus Solostar Pen 100 units/mL subcutaneous solution, 16 units sq qhs, # 5, RF: 5. (Transmitted by Colleen Huang DO) PRESCRIBE: Percoset 5/325mg, one po bid prn pain, # 60, RF: NONE. PROVIDED HM: Recommendations for Testing HgbA1C in Individuals with Diabetes Mellitus Given: 7.6% PROVIDED VACCINATION: 1 dose of Fluvirin, 0.5 ml IM in the Left Deltoid (Mfg: NOVARTIS lot no. [id number], expires 01/29/2015) ORDERED/ADVISED: - CBC with diff (automated) ICD9 Codes (250.00, 272.4, V70.0, 401.9) - CMP (Complete Metabolic Panel) ICD9 Codes (250.00, 272.4, V70.0, 401.9) - Lipid Panel ICD9 Codes (250.00, 272.4, V70.0, 401.9) - PSA, total (Prostate Specific Antigen) (prostatism) ICD9 Codes (250.00, 272.4, V70.0, 401.9) ORDERED/ADVISED: - Urine microalbumin ICD9 Codes (250.00) 05/09/2014 12:31:39 Instructions printed and provided to patient: PRESCRIBE: Percoset 5/325mg, one po bid prn pain, # 60, RF: NONE. PRESCRIBE: glucometer with supplies, use as directed ac breakfast and supper, # 1, RF: 0. Increase your lantus insulin to 15 units at bedtime. check your sugar every morning before breakfast and return with readings. return for annual visit....fasting labs and prostate check ORDERED/ADVISED: - Urine microalbumin ICD9 Codes (250.00) 03/16/2014 13:52:33 Instructions printed and provided to patient: [employer] site consulted prior to scheduled drug prescription. PRESCRIBE: Novofine 31, use for lantus injection daily, # 100, RF: 3. (Transmitted by Colleen Huang, DO) PRESCRIBE: Lantus Solostar Pen 100 units/mL subcutaneous solution, 10 units sq daily in the evening, # 5, RF: 5. (Transmitted by Colleen Huang, DO) PRESCRIBE: Percoset 5/325mg, one po bid prn pain, # 60, RF: NONE. PRESCRIBE: lisinopril 10 mg oral tablet, one po daily, # 90, RF: 3. (Transmitted by Colleen Huang, DO) PRESCRIBE: atorvastatin 10 mg oral tablet, one po daily, # 90, RF: 3. (Transmitted by Colleen Huang, DO) PRESCRIBE: Zoloft 100 mg oral tablet, one po daily, # 90, RF: 3. (Transmitted by Colleen Huang, DO) PRESCRIBE: metFORMIN 1000 mg oral tablet, one po pc breakfast and supper, one half after lunch, # 225, RF: 3. (Transmitted by Colleen Huang, DO) DISCONTINUE: metroNIDAZOLE 0.75% topical lotion apply to affected area BID, REASON: done ORDERED/ADVISED: - CBC with diff (automated) ICD9 Codes (724.5, 692.9, 250.00, 272.4, 401.9) - CMP (Complete Metabolic Panel) ICD9 Codes (724.5, 692.9, 250.00, 272.4, 401.9) - Lipid Panel ICD9 Codes (724.5, 692.9, 250.00, 272.4, 401.9) - Urine microalbumin ICD9 Codes (724.5, 692.9, 250.00, 272.4, 401.9) he will return for fasting labs. PROVIDED HM: Recommendations for Testing HgbA1C in Individuals with Diabetes Mellitus Given: 8.6% ORDERED/ADVISED: - Urine microalbumin ICD9 Codes (250.00) Lantus is a basal insulin....there are no peaks or valleys. It is taken every day in the evening. Adjust Lantus insulin by following the fasting morning blood sugar. For every day that your fasting BS is above 130 increase the evening lantus dose by one unit. Start with 10 units. The following text was added by Avel Huang DO on Friday May 09, 2014 12:31 PM: HgA1c: 8.2% 11/05/2013 08:49:26 Instructions printed and provided to patient: PRESCRIBE: Klonapin 0,5mg, one or two po hs prn insomnia, # 10, RF: 0. PRESCRIBE: Percoset 5/325mg, one po bid prn pain, # 60, RF: NONE. [employer] site consulted prior to scheduled drug prescription. PROVIDED HM: Counseling to Prevent Tobacco Use and Tobacco-Caused Disease in Adults and Women Given: NI PROVIDED HM: Mammography Given: NI PROVIDED HM: Recommendations for Diabetic Foot Care Given: no problems. PROVIDED HM: Screening for High Blood Pressure in Adults Given: 140/80 PROVIDED HM: Screening for Diabetic Nephropathy Given: Neg PROVIDED HM: Screening for Diabetic Neuropathy Given: not present PROVIDED HM: Screening for Lipid Disorders in Adults (Male) Given: LDL 51 PROVIDED HM: Screening for Diabetic Retinopathy Given: frequent visit recently. PROVIDED HM: Recommendations for Testing HgbA1C in Individuals with Diabetes Mellitus Given: hgac 7.,9% PROVIDED HM: Screening for Colorectal Cancer in Adults Aged 50-75 yrs Given: due in 201506/11/2013 08:24:47 Instructions printed and provided to patient: PRESCRIBE: Percoset 5/325mg, one po bid prn pain, # 60, RF: NONE. PRESCRIBE: Zoloft 100 mg oral tablet, one po daily, # 90, RF: 3. (Transmitted by Colleen Huang DO) PRESCRIBE: metformin 1000 mg oral tablet, one po pc breakfast and supper, one doyle lf after lunch, # 225, RF: 3. (Transmitted by Colleen Huang, DO) PRESCRIBE: lisinopril 10 mg oral tablet, one po daily, # 90, RF: 3. (Transmitted by Colleen Huang, DO) PRESCRIBE: atorvastatin 10 mg oral tablet, one po daily, # 90, RF: 3. (Transmitted by Colleen Huang, DO) PROVIDED HM: Recommendations for Testing HgbA1C in Individuals with Diabetes Mellitus Given: Hgac 6.5% PROVIDED VACCINATION: (Given Elsewhere) Influenza, Urged to get this at work when they give them ORDERED/ADVISED: - BMP (Basic Metabolic Panel) ICD9 Codes (250.00, 600.9, 272.4, 401.9) - 25 vit D and 1, 25 vit D ICD9 Codes (250.00, 600.9, 272.4, 401.9) - Urinalysis ICD9 Codes (250.00, 600.9, 272.4, 401.9) - Urine microalbumin ICD9 Codes (250.00, 600.9, 272.4, 401.9) - Parathyroid Hormone Level (Chronic Kidney Ds) ICD9 Codes (250.00, 600.9, 272.4, 401.9) [employer] site consulted prior to scheduled drug prescription. just two days ago 06/09/2013 08:31:54 PRESCRIBE: Klonapin 0,5mg , one or two po hs prn insomnia, # 10, RF: 0. 02/17/2013 08:29:32 PRESCRIBE: Zoloft 50 mg oral tablet, one po daily, # 90, RF: 3. (Transmitted by Colleen Huang, ) PRESCRIBE: metformin 1000 mg oral tablet, one po pc breakfast and supper, one half after lunch, # 225, RF: 3. (Transmitted by Colleen Huang, DO) PRESCRIBE: lisinopril 10 mg oral tablet, one po daily, # 90, RF: 3. (Transmitted by Colleen Huang, ) PRESCRIBE: atorvastatin 10 mg oral tablet, one po daily, # 90, RF: 3. (Transmitted by Colleen Huang, ) Instructions printed and provided to patient: PRESCRIBE: Percoset 5/325mg, one po bid prn pain, # 60, RF: NONE. PROVIDED HM: Recommendations for Testing HgbA1C in Individuals with Diabetes Mellitus Given: 7.9% ORDERED/ADVISED: - CBC with diff (automated) ICD9 Codes (805.4, 250.00, 600.90, 272.4, 401.9) - CMP (Complete Metabolic Panel) ICD9 Codes (805.4, 250.00, 600.90, 272.4, 401.9) - Lipid Panel ICD9 Codes (805.4, 250.00, 600.90, 272.4, 401.9) - PSA, total (Prostate Specific Antigen) ICD9 Codes (805.4, 250.00, 600.90, 272.4, 401.9) ORDERED/ADVISED: - Urine microalbumin ICD9 Codes (805.4, 250.00, 600.90, 272.4, 401.9) ORDERED/ADVISED: - Blood Draw ICD9 Codes (805.4, 250.00, 600.90, 272.4, 401.9) 11/02/2012 08:13:33 Instructions printed and provided to patient: PRESCRIBE: Percoset 5/325mg, one po bid prn pain, # 60, RF: NONE. PROVIDED HM: Recommendations for Testing HgbA1C in Individuals with Diabetes Mellitus Given: today 6.6% PROVIDED HM: Recommendations for Diabetic Foot Care Given: NI ORDERED/ADVISED: - Urine microalbumin ICD9 Codes (724.5, 805.4, 250.00, 272.4, 401.9) 08/28/2012 08:54:25 Note for work. He is up to date with meds and labs. 08/05/2012 11:43:02 Instructions printed and provided to patient: PRESCRIBE: metroNIDAZOLE 0.75% topical lotion, apply to affected area BID, # 1, RF: 5. (Transmitted by Colleen Huang, ) PRESCRIBE: Percoset 5/325mg, one po bid prn pain, # 60, RF: NONE. PRESCRIBE: Zoloft 50 mg oral tablet, one po daily, # 90, RF: 3. (Transmitted by Colleen Huang, ) PRESCRIBE: metformin 1000 mg oral tablet, one po pc breakfast and supper, one half after lunch, # 225, RF: 3. (Transmitted by Colleen Huang, ) PRESCRIBE: lisinopril 10 mg oral tablet, one po daily, # 90, RF: 3. (Transmitted by Colleen Huang DO) PRESCRIBE: atorvastatin 10 mg oral tablet, one po daily, # 90, RF: 3. (Transm itted by Colleen Huang DO) PRESCRIBE: [place] Prefilled Pen 10 mcg/0.04 mL subcutaneous solution, 10mcg sq bid ac, # 180, RF: 3. (Transmitted by Colleen Huang, ) DISCONTINUE: cyclobenzaprine 10 mg oral tablet one po hs daily PROVIDED HM: Recommendations for Testing HgbA1C in Individuals with Diabetes Mellitus Given: 7.3% today PROVIDED HM: Counseling to Prevent Tobacco Use and Tobacco-Caused Disease in Adults Given: NI PROVIDED VACCINATION: (Given Elsewhere) Influenza, at work PROVIDED HM: Recommendations for Diabetic Foot Care Given: No problems PROVIDED HM: Screening for Diabetic Nephropathy Given: Neg PROVIDED HM: Screening for Diabetic Neuropathy Given: not present PROVIDED HM: Screening for Diabetic Retinopathy Given: sees eye doc annually PROVIDED HM: Screening for Lipid Disorders in Adults (Male) Given: LDL 61 PROVIDED HM: Screening for Colorectal Cancer in Adults Aged 50-75 yrs Given: due in 201502/26/2012 08:27:00 Instructions printed and provided to patient: PRESCRIBE: Percoset 5/325mg, one po bid prn pain, # 60, RF: NONE. PRESCRIBE: Zoloft 50 mg oral tablet, one po daily, # 90, RF: 3. (Transmitted by Colleen Huang DO) PRESCRIBE: metformin 1000 mg oral tablet, one po pc breakfast and supper, one half after lunch, # 225, RF: 3. (Transmitted by Colleen Huang, ) PRESCRIBE: lisinopril 10 mg oral tablet, one po daily, # 90, RF: 3. (Transmitted by Colleen Huang DO) PRESCRIBE: Crestor 5 mg oral tablet, one half po daily, # 45, RF: 3. (Transmitted by Colleen Huang, ) PRESCRIBE: BD ultrafine needles for byetta injection, one bid as directed, # 180, RF: 3. (Transmitted by Colleen Huang DO) PRESCRIBE: Byetta Prefilled Pen 10 mcg/0.04 mL subcutaneous solution, 10mcg sq bid ac, # 180, RF: 3. (Transmitted by Colleen Huang DO) ORDERED/ADVISED: - CBC with diff (automated) ICD9 Codes (250.00, 600.9, 724.2, 272.4, 401.9) - CMP (Complete Metabolic Panel) ICD9 Codes (250.00, 600.9, 724.2, 272.4, 401.9) - HGA1C ICD9 Codes (250.00, 600.9, 724.2, 272.4, 401.9) - Lipid Panel ICD9 Codes (250.00, 600.9, 724.2, 272.4, 401.9) - PSA, total (Prostate Specific Antigen) ICD9 Codes (250.00, 600.9, 724.2, 272.4, 401.9) ORDERED/ADVISED: - Urine microalbumin ICD9 Codes (250.00, 600.9, 724.2, 272.4, 401.9) - Urinalysis ICD9 Codes (250.00, 600.9, 724.2, 272.4, 401.9) ORDERED/ADVISED: - Blood Draw ICD9 Codes (250.00, 600.9, 724.2, 272.4, 401.9) ORDERED/ADVISED: - Lyme Titer ICD9 Codes (250.00, 600.9, 724.2, 272.4, 401.9) - HGA1C (Tick/Rodriguez's Palsy) ICD9 Codes (250.00, 600.9, 724.2, 272.4, 401.9) 10/23/2011 08:31:03 Instructions printed and provided to patient: PRESCRIBE: Percoset 5/325mg, one po bid prn pain, # 60, RF: NONE. PRESCRIBE: BD ultrafine needles for byetta injection, one bid as directed, # 180, RF: 3. (Transmitted by Colleen Huang DO) If it hurts don't do it. Motion is lotion. Need to do daily excercise program.....15minutes three times/day. Every day. You need to get back to excercising. 08/21/2011 08:26:48 Instructions printed and provided to patient: PRESCRIBE: Percoset 5/325mg, one po bid prn pain, # 60, RF: NONE. PRESCRIBE: Zoloft 50 mg oral tablet, one po daily, # 90, RF: 3. (Transmitted by Colleen Huang DO) PRESCRIBE: lisinopril 10 mg oral tablet, one po daily, # 90, RF: 3. (Transmitted by Colleen Huang, ) PRESCRIBE: Crestor 5 mg oral tablet, one half po daily, # 45, RF: 3. (Transmitted by Collene Huang, ) PRESCRIBE: metformin 1000 mg oral tablet, one po pc breakfast and supper, one half after lunch, # 225, RF: 3. (Transmitted by Colleen Huang DO) All sent to [facility] today and 06/19/11. DISCONTINUE: gabapentin 300 mg oral capsule one po q4 hours prn back pain ORDERED/ADVISED: - HgAc ICD9 Codes (250.00, 600.90, V04.81, 719.41, 401.9) ORDERED/ADVISED: - Blood Draw ICD9 Codes (250.00, 600.90, V04.81, 719.41, 401. 9) 06/19/2011 08:43:09 Instructions printed and provided to patient: PRESCRIBE: Percoset 5/325mg, one po bid prn pain, # 60, RF: NONE. PRESCRIBE: Zoloft 50 mg oral tablet, one po daily, # 90, RF: 3. (Transmitted by Colleen Huang, ) PRESCRIBE: metformin 1000 mg oral tablet, one po pc breakfast and supper, one half after lunch, # 225, RF: 3. (Transmitted by Colleen Huang DO) PRESCRIBE: lisinopril 10 mg oral tablet, one po daily, # 90, RF: 3. (Transmitted by Colleen Huang, ) PRESCRIBE: Crestor 5 mg oral tablet, one half po daily, # 45, RF: 3. (Transmitted by Colleen Huang, ) PROVIDED HM: Recommendations for Testing HgbA1C in Individuals with Diabetes Mellitus Given: 7.6% 12/10 PROVIDED HM: Screening for Lipid Disorders in Adults (Male) Given: LDL 23 12/10 PROVIDED HM: Screening for Diabetic Nephropathy Given: Neg in december 10 PROVIDED HM: Screening for Diabetic Neuropathy Given: Not present PROVIDED HM: Screening for Diabetic Retinopathy Given: Sees Dr. Dinh and told no diabetes related problems PROVIDED HM: Aspirin for the Primary Prevention of Myocardial Infarction Given: Recommendation to 81mg ASA daily PROVIDED HM: Screening for High Blood Pressure in Adults Given: 132/82 PROVIDED HM: Recommendations for Diabetic Foot Care Given: Dr. Simmons in past. NI right now PROVIDED HM: Screening for Colorectal Cancer in Adults Aged 50-75 yrs Given: 2005 Dr. Alvarez benign polyp PROVIDED HM: Counseling to Prevent Tobacco Use and Tobacco-Caused Disease in Adults Given: NI at this point quit in 1997 ORDERED/ADVISED: - CMP (Complete Metabolic Panel) ICD9 Codes (250.00, 600.90, 719.41, 401.9) - HgAc ICD9 Codes (250.00, 600.90, 719.41, 401.9) - Lipid Panel ICD9 Codes (250.00, 600.90, 719.41, 401.9) PROVIDED: Patient Education (06/19/2011) diabetes ORDERED/ADVISED: - Blood Draw ICD9 Codes (250.00, 600.90, 719.41, 401.9) ORDERED/ADVISED: - PSA, total (Prostate Specific Antigen) (family history) ICD9 Codes (250.00, 600.90, 719.41, 401.9) PROVIDED VACCINATION: 1 dose of Flulaval, 0.5 ml IM in the L DELTOID (Mfg: [employer] lot no. [id number], expires 02/28/2012) ORDERED/ADVISED: - Urine microalbumin (AODM) ICD9 Codes (250.00, 600.90, 719.41, 401.9) 03/08/2011 08:41:01 Instructions printed and provided to patient: PRESCRIBE: Percoset 5/325mg, one po bid prn pain, # 60, RF: NONE. PRESCRIBE: Byetta 10 mcg/0.04 mL subcutaneous solution, 10mcg sq bid ac, # 180 doses, RF: 3. We discussed increasing his byetta. We will do that today. 50% of this visit was spent discussing the diagnosis, natural history of the disease, risks/benefits of and various treatment options. His hgac is 7.6% but is not ideal. Extensive discussion regarding the diagnosis of diabetes , its natural history, nutrition and excercise and medication effects on blood sugars. Questions were answered. ORDERED/ADVISED: - Right shoulder xray (Pain) ICD9 Codes (250.00, 600.90, 719.41, 401.9) ORDERED/ADVISED: - HgAc ICD9 Codes (250.00, 600.90, 719.41, 401.9) Do this end of april. ORDERED/ADVISED: - Custom Order (Estrella has been out of work due to exacerbation of his back pain. He is better and may return now.) 12/26/2010 08:18:16 50% of this visit was spent discussing the diagnosis, natural history of the disease, risks/benefits of and various treatment options. If it hurts don't do it. Motion is lotion. Need to do daily excercise program.....15minutes three times/day. Every day. Ordered/Advised: - Custom Order (PT eval and treat regarding right shoulder pain.) ICD9 Codes (724.5, 805.4) Ordered/Advised: - CMP (Complete Metabolic Panel) ICD9 Codes (724.5, 805.4) - CBC with diff (automated) ICD9 Codes (724.5, 805.4) - HgAc ICD9 Codes (724.5, 805.4) - Lipid Panel (Hyperlipidemia/hypertension/AODM) ICD9 Codes (724.5, 805.4) 12/14/2010 08:19:33 50% of this visit (25 minutes) was spent discussing the diagnosis, natural history of the disease, risks/benefits of and various treatment options. If it hurts don't do it. Motion is lotion. Need to do daily excercise program.....15minutes three times/day. Every day. He is due for labs and will return in a couple of weeks fasting. PRESCRIBE: Cyclobenzaprine 10mg, one po hs daily, # 90, RF: 3. PRESCRIBE: Percoset 5/325mg, one po bid prn pain, # 60, RF: NONE. PRESCRIBE: gabapentin 300 mg oral capsule, one po q4 hours prn back pain, # 180, RF: 2. PRESCRIBE: Cyclobenzaprine 10mg, one po hs daily, # 90, RF: 3. 09/24/2010 08:30:35 50% of this visit (30 minutes) was spent discussing the diagnosis, natural history of the disease, risks/benefits of and various treatment options. Narcotics and side effects/pain contract reviewed and signed. He understands that he is only getting pain pills from me. PRESCRIBE: Percoset 5/325mg, one po bid prn pain, # 60, RF: NONE. PRESCRIBE: OXYCONTIN CONTROLLED RELEASE TABLETS 10 MG, one po daily in the evening, # 30, RF: 0. 08/29/2010 09:35:56 50% of this visit (30 minutes) was spent discussing the diagnosis, natural history of the disease, risks/benefits of and various treatment options. Extensive discussion regarding weaning his percoset and tolerance to the drug and the use of gabapentin and its side effects. PRESCRIBE: Percoset 5/325mg, one po tid prn back pain MDD3, # 90, RF: NONE. PRESCRIBE: Gabapentin 100mg, one or two po [id number] prn back pain, # 180, RF: 5. Ordered/Advised: - Custom Order (PT eval and treat regarding back pain. conditioning program post L1 compression fracture.) ICD9 Codes (805.4) 06/27/2010 08:26:51 50% of this visit (30 minutes) was spent discussing the diagnosis, natural history of the disease, risks/benefits of and various treatment options. Extensive discussion regarding the diagnosis of diabetes , its natural history, nutrition and excercise and medication effects on blood sugars. Questions were answered. We discussed increasing byetta and insulin DISCONTINUE: Actos 45mg one po daily Ordered/Advised: - Urine microalbumin (AODM) ICD9 Codes (805.4) Ordered/Advised: - HgAc ICD9 Codes (805.4) - Lyme Titer (Rodriguez's Palsy) ICD9 Codes (805.4) DISCONTINUE: Viagra 100mg as directed PRESCRIBE: Byetta 5 mcg/0.02 mL subcutaneous solution, sq ac breakfast and supper, # 90, RF: 3. (transmitted to pharmacy) PRESCRIBE: Crestor 5 mg oral tablet, one po daily, # 90, RF: 3. (transmitted to pharmacy) PRESCRIBE: lisinopril 10 mg oral tablet, one po daily, # 90, RF: 3. (transmitted to pharmacy) PRESCRIBE: metformin 1000 mg oral tablet, one po pc breakfast and supper, one half after lunch, # 225, RF: 3. (transmitted to pharmacy) PRESCRIBE: Zoloft 50 mg oral tablet, one po daily, # 90, RF: 3. (transmitted to pharmacy) PRESCRIBE: BD ultrafine needles for byetta injection, one bid as directed, # 180, RF: 3. (transmitted to pharmacy) Ordered/Advised: - Estrella Alvarez (Surgery) (removal of skin lesion left upper arm) ICD9 Codes (805.4) 06/13/2010 15:29:28 Ordered/Advised: - Urine microalbumin ICD9 Codes (250.00, 607.84, 272.4, 401.9) Forms completed. 03/23/2010 08:20:07 Ordered/Advised: - CMP (Complete Metabolic Panel) ICD9 Codes (250.00, 600.9, 607.84, 272.4, V72.84, 366.9, 709.9, 401.9, 780.57) - HgAc ICD9 Codes (250.00, 600.9, 607.84, 272.4, V72.84, 366.9, 709.9, 401.9, 780.57) 50% of this visit (20 minutes) was spent discussing the diagnosis, natural history of the disease, risks/benefits of and various treatment options. ED. 01/26/2010 08:53:06 He is free of cardiovascular symptoms. His diabetes is fairly well controlled with most recent hgac of 7.8%. His activity level is 10 mets or more. His EKG and labs and CXR are all normal. He does have the intermediate predictor of cardiovascular risk of diabetes. He also says he has LIUDMILA. He will be holding his metformin for two days prior to his surgery. He has no contraindications to beta get. His medical conditions would be considered optimized to proceed with his proposed low risk cataract surgery. 12/20/2009 08:28:25 DISCONTINUE: Actos 30mg one po daily DISCONTINUE: Lopid 600mg one po bid (I will be stopping these if he hasn't already. He has) DISCONTINUE: Cyclobenzaprine 10mg one po hs daily Ordered/Advised: - BMP (Basic Metabolic Panel) ICD9 Codes (250.02, 607.84, 272.4, 401.9) - PSA, total (Prostate Specific Antigen) ICD9 Codes (250.02, 607.84, 272.4, 401.9) - HgAc ICD9 Codes (250.02, 607.84, 272.4, 401.9) 09/18/2009 08:50:54 PRESCRIBE: Crestor 5 mg, one po daily, # 90, RF: 3. ADVISED/ORDERED: LFS lipid profile HgAc 50% of this visit (25 minutes) was spent discussing diagnoses and treatment options as well as R/B of various options. Extensive discussion regarding the diagnosis of diabetes , its natural history, nutrition and excercise and medication effects on blood sugars. Questions were answered. Starting insulin. Crestor to continue. 06/28/2009 09:11:36 PRESCRIBE: Crestor 5 mg, one po daily, samples for 6 weeks and he needs to come in in 6 weeks for fasting LFS. PRESCRIBE: Metformin 1000mg, one po pc breakfast and one and a half pc largest meal, # 225, RF: 3. PRESCRIBE: Actos 45mg, one po daily, # 90, RF: 3. ICE, low impact excercise followed by moist heat. tylenol arthritis at hs. 50% of this visits was spent discussing diagnoses and treatment options as well as R/B of various options. Extensive discussion regarding the diagnosis of diabetes , its natural history, nutrition and excercise and medication effects on blood sugars. Questions were answered. Extensive discussion regarding lipids and nutritional strategies for lower cholesterol. Extensive discussion, over 50%of visits regarding nutrition and excercise. Strategies to decrease caloric intake and increase activity. 06/16/2009 14:07:28 PRESCRIBE: BD ultrafine needles for byetta injection, one bid as directed, # 180, RF: 3. PRESCRIBE: Elocon oint .1%, apply as directed hs daily prn, # 1 tube, RF: 1. PRESCRIBE: Zoloft 50mg, one po daily, # 90, RF: 3. PRESCRIBE: Viagra 100mg, as directed, # 6, RF: 5. PRESCRIBE: Metformin 1000mg, one po bid pc, # 180, RF: 3. PRESCRIBE: Lopid 600mg, one po bid, # 180, RF: 3. PRESCRIBE: Lisinopril 10mg, one po daily, # 90, RF: 3. PRESCRIBE: Cyclobenzaprine 10mg, one po hs daily, # 90, RF: 3. PRESCRIBE: Byetta 10mcg, sq ac bid, # 3 months, RF: 3. PRESCRIBE: Actos 30mg, one po daily, # 90, RF: 3. ADVISED/ORDERED: Urine for microalbumin ADVISED/ORDERED: Complete Blood Count (CBC)with diff Basic Metabolic Panel (BMP) Liver Function Tests (LFTs) Lipids HgAc VITAL SIGNS Encounter Height (in) We ight (lb) BMI (kg/m2) BP Sys (mmHg) BP Mera (mmHg) Heart Rate (/min) O2 % BldC Oximetry O2 % BldC Oximetry (on O2) Body Temp erature Respiratory Rate (/min) Head Circumf OFC by Tape measure 10/02/2020 08:16:17 70 2 59 37.2 148 82 73 97 -- 97.9 F -- -- 08/14/2020 09:42:50 -- 2 50 -- -- -- - - -- -- -- - - -- 09/08/2019 08:19:29 70 2 64 37.9 124 66 91 95 -- 99.6 F -- -- 08/13/2019 13:55:58 70 2 59 37.2 110 64 93 97 -- -- -- -- 06/18/2019 09:23:34 70 2 70 38.7 146 88 84 98 -- -- -- -- 03/24/2019 08:14:04 70 2 62 37.6 118 80 79 97 -- -- -- -- 12/14/2018 08:01:40 70 2 69 38.6 120 66 86 96 -- -- -- -- 09/07/2018 08:17:34 70 2 75 39.5 146 86 78 98 -- -- -- -- 07/20/2018 13:54:05 70 2 71 38.9 124 70 80 97 -- -- -- -- 06/03/2018 08:23:02 70 2 75 39.5 160 80 82 97 -- -- -- -- 03/27/2018 08:56:44 70 2 68 38.5 132 80 85 96 -- 97.1 F -- -- 12/26/2017 08:55:27 70 2 77 39.7 118 72 102 97 -- -- -- -- 09/24/2017 08:27:29 70 2 78 39.9 130 86 74 98 -- -- -- -- 06/02/2017 08:22:37 70 2 78 39.9 118 78 81 97 -- -- -- -- 03/07/2017 09:18:02 70 2 79 40.0 140 90 68 98 -- -- -- -- 01/15/2017 08:13:41 70 2 83 40.6 138 80 81 98 -- -- -- -- 11/06/2016 08:26:32 70 2 82 40.5 130 82 73 95 -- -- -- -- 09/04/2016 09:23:52 70 2 85 40.9 182 92 89 97 -- 98.2 F -- -- 07/10/2016 08:21:01 70 2 80 40.2 160 92 68 98 -- -- -- -- 05/15/2016 08:27:09 70 2 78 39.9 122 68 85 97 -- -- -- -- 03/18/2016 08:09:18 70 2 79 40.0 134 70 80 96 -- -- -- -- 01/22/2016 08:23:52 70 2 80 40.2 142 76 74 98 -- -- -- -- 12/15/2015 12:17:35 70 2 82 40.5 126 60 91 96 -- -- -- -- 11/17/2015 08:15:21 70 2 78 39.9 134 90 71 97 -- -- -- -- 09/27/2015 08:29:20 70 2 75 39.5 130 92 84 98 -- -- -- -- 08/11/2015 08:14:29 70 2 82 40.5 118 70 88 96 -- 97.5 F -- -- 06/19/2015 08:27:11 70 2 77 39.7 148 90 72 97 -- -- -- -- 04/26/2015 08:20:21 70 2 79 40.0 148 92 69 98 -- -- -- -- 01/18/2015 08:11:52 70 2 79 40.0 130 88 76 97 -- -- -- -- 11/30/2014 08:15:54 70 2 80 40.2 160 76 87 98 -- -- -- -- 10/19/2014 08:22:58 70 2 75 39.5 140 88 59 98 -- -- -- -- 09/16/2014 14:40:20 70 2 73 39.3 140 70 83 97 -- -- -- -- 09/14/2014 08:40:22 70 2 73 39.3 128 72 85 98 -- -- -- -- 08/22/2014 08:31:54 70 2 73 39.3 132 88 63 98 -- -- -- -- 05/09/2014 12:31:39 70 2 72 39.1 130 78 97 97 -- -- -- -- 03/16/2014 13:52:33 70 2 69 38.7 132 78 85 97 -- -- -- -- 11/05/2013 08:49:26 70 2 72 39.1 140 80 87 98 -- -- -- -- 06/11/2013 08:24:47 70 2 66 38.2 126 76 79 -- -- -- - - -- 06/09/2013 08:31:54 70 2 68 38.5 142 80 82 -- -- -- - - -- 02/17/2013 08:29:32 70 2 68 38.5 136 84 89 -- -- -- - - -- 11/02/2012 08:13:33 70 2 65 38.1 136 80 94 -- -- -- - - -- 08/28/2012 08:54:25 72 2 68 36.4 138 84 85 -- -- 97.6 F -- -- 08/05/2012 11:43:02 72 2 68 36.4 124 78 96 -- -- -- - - -- 02/26/2012 08:27:00 72 2 68 36.4 108 72 79 -- -- -- - - -- 10/23/2011 08:31:03 72 2 69 36.6 130 70 80 -- -- -- - - -- 08/21/2011 08:26:48 72 2 72 37.0 150 80 90 -- -- -- - - -- 06/19/2011 08:43:09 72 2 71 36.8 132 82 78 -- -- -- - - -- 03/08/2011 08:41:01 72 2 70 36.7 134 78 68 -- -- -- - - -- 12/26/2010 08:18:16 72 2 67 36.2 108 70 87 -- -- -- - - -- 12/14/2010 08:19:33 72 2 68 36.4 162 80 79 -- -- -- - - -- 09/24/2010 08:30:35 72 2 59 35.2 114 82 85 -- -- -- - - -- 06/27/2010 08:26:51 72 2 73 37.1 128 72 87 -- -- -- - - -- 06/13/2010 15:29:28 72 2 69 36.5 130 74 102 -- -- -- - - -- 03/23/2010 08:20:07 72 2 87 39.0 112 76 79 -- -- -- - - -- 01/26/2010 08:53:06 72 2 84 38.5 132 78 82 -- -- -- - - -- 12/20/2009 08:28:25 72 2 84 38.5 110 72 83 -- -- -- - - -- 09/18/2009 08:50:54 72 2 79 37.9 106 70 87 -- -- -- - - -- 06/28/2009 09:11:36 -- -- -- 126 68 96 -- -- -- - - -- 06/16/2009 14:07:28 72 2 71 36.8 130 78 86 -- -- -- - - -- GOALS No Goals Information. HEALTH CONCERNS No health concerns information is available. MENTAL STATUS No Mental Status information.
--- OUTSIDE RECORDS SUMMARY | 2020-10-17 11:11 | CCD ---
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 Colleen Huang DO 10-04-2020 Emotional stress [SNOMED-CT: 496023127] Dr. Colleen Huang DO 10-04-2020 Heart murmur [SNOMED-CT: 37099181] Flora Huang DO 10-04-2020 Calcific aortic stenosis - bicuspid valv e [SNOMED-CT: 629600589] Dr. Colleen Huang DO 10-02-2020 Cholelithiasis AND cholecystitis with ob struction [SNOMED-CT: 46331597] Dr. Colleen Huang DO 10-02-2020 Type II diabetes mellitus poorly control led [SNOMED-CT: 440495929] Dr. Colleen Huang DO 10-02-2020 Chronic kidney disease [SNOMED-CT: 901245633] Dr. Colleen Huang DO 10-02-2020 ANXIETY STATE UNSPECIFIED [SNOMED-CT: 025131046] Celestine Huang DO 10-02-2020 H/O: Rodriguez's palsy [SNOMED-CT: 361435200] Dr. Colleen Huang, DO 10-02-2020 Pancreatitis [SNOMED-CT: 25634337] Flora Huang, DO 10-02-2020 Unspecified injury of right shoulder and upper arm [ICD10: S49.91XA] Dr. Colleen Huang, DO 09-27-2020 Unspecified injury of right shoulder and upper arm [ICD10: S49.91XA] Dr. Colleen Huang, DO 09-26-2020 Type II diabetes mellitus poorly control led [SNOMED-CT: 733630337] Dr. Colleen Huang, DO 09-26-2020 Type II diabetes mellitus poorly control led [SNOMED-CT: 796835556] Dr. Colleen Huang, DO 09-15-2020 Nausea and vomiting [SNOMED-CT: 34309545] Dr. Colleen Huang, DO 09-15-2020 Emotional stress [SNOMED-CT: 008322736] Dr. Colleen Huang, DO 08-30-2020 Type II diabetes mellitus poorly control led [SNOMED-CT: 682821763] Dr. Colleen Huang, DO 08-30-2020 Acute pancreatitis [SNOMED-CT: 039086046] Dr. Colleen Huang, DO 08-23-2020 Type II diabetes mellitus poorly control led [SNOMED-CT: 910555002] Dr. Colleen Huang, DO 08-23-2020 Generalised itching [SNOMED-CT: 130436309] Celestine Huang, DO 08-23-2020 Thyroiditis [SNOMED-CT: 57865073] Dr Joe Huang, DO 08-23-2020 Chronic kidney disease [SNOMED-CT: 858402210] Dr. Colleen Huang, DO 08-23-2020 Acute pancreatitis [SNOMED-CT: 922596536] Dr. Colleen Huang, DO 08-15-2020 Type II diabetes mellitus poorly control led [SNOMED-CT: 802148105] Dr. Colleen Huang, DO 08-15-2020 Generalised itching [SNOMED-CT: 804130777] Celestine Huang, DO 08-15-2020 Acute pancreatitis [SNOMED-CT: 335695112] Dr. Colleen Huang, DO 08-14-2020 Type II diabetes mellitus poorly control led [SNOMED-CT: 533616656] Dr. Colleen Huang, DO 08-14-2020 Other hyperlipidemia [ICD10: E78.49] Dr. Colleen Huang, DO 08-14-2020 Balanitis [SNOMED-CT: 34915822] Dr. Colleen Huang, DO 05-30-2020 Type II diabetes mellitus poorly control led [SNOMED-CT: 734488684] Dr. Colleen Huang, DO 05-30-2020 Type II diabetes mellitus poorly control led [SNOMED-CT: 553862819] Dr. Colleen Huang, DO 03-22-2020 Other hyperlipidemia [ICD10: E78.49] Dr. Colleen Huang, DO 03-22-2020 DIABETES MELLITUS WITHOUT MENTION OF COM PLICATION [SNOMED-CT: 483799594] N/A N/A 03-15-2020 Acute rhinosinusitis [SNOMED-CT: 278927397] Dr. Colleen Huang, DO 09-08-2019 Upper respiratory infection [SNOMED-CT: 85561084] Dr. Colleen Huang, DO 09-08-2019 DIABETES WITH RENAL MANIFESTATIONS TYPE II OR UNSPECIFIED TYPE NOT STATED UNCONTROLLED [SNOMED-CT: 236520225] Dr. Colleen Huang, DO 08-13-2019 UNSPECIFIED ESSENTIAL HYPERTENSION [SNOMED-CT: 4682544 0] N/A N/A 08-13-2019 ANXIETY STATE UNSPECIFIED [SNOMED-CT: 566212066] Celestine Huang, DO 08-13-2019 CHRONIC KIDNEY DISEASE STAGE II (MILD) [SNOMED-CT: 431 308201] Dr. Colleen Huang, DO 08-13-2019 Other specified vaccination [ICD10: Z23] Celestine Huang, DO 08-13-2019 Pain in left foot [SNOMED-CT: 003956123399218] Dr. Colleen Huang, DO 06-18-2019 DIABETES MELLITUS WITHOUT MENTION OF COM PLICATION [SNOMED-CT: 213683883] Celestine Huang, DO 06-18-2019 DIABETES WITH RENAL MANIFESTATIONS TYPE II OR UNSPECIFIED TYPE NOT STATED UNCONTROLLED [SNOMED-CT: 525753193] Dr. Colleen Huang, DO 03-24-2019 Contusion of lower back and pelvis, init ial encounter [ICD10: S30.0XXA] Dr. Colleen Huang, DO 12-14-2018 DIABETES WITH RENAL MANIFESTATIONS TYPE II OR UNSPECIFIED TYPE NOT STATED UNCONTROLLED [SNOMED-CT: 173419154] Dr. Colleen Huang, DO 12-14-2018 DIABETES MELLITUS WITHOUT MENTION OF COM PLICATION [SNOMED-CT: 859751463] N/A N/A 09-07-2018 DIABETES WITH RENAL MANIFESTATIONS TYPE II OR UNSPECIFIED TYPE NOT STATED UNCONTROLLED [SNOMED-CT: 799853904] Dr. Colleen Huang, DO 07-20-2018 Other hyperlipidemia [ICD10: E78.49] Dr. Colleen Huang, DO 07-20-2018 Back pain [SNOMED-CT: 592579041] Dr. Colleen Huang, DO 06-03-2018 DIABETES WITH RENAL MANIFESTATIONS TYPE II OR UNSPECIFIED TYPE NOT STATED UNCONTROLLED [SNOMED-CT: 022700580] Dr. Colleen Huang, DO 06-03-2018 Arthropathy of left shoulder [SNOMED-CT: 2048114532601 9103] Dr. Colleen Huang, DO 06-03-2018 DIABETES WITH RENAL MANIFESTATIONS TYPE II OR UNSPECIFIED TYPE NOT STATED UNCONTROLLED [SNOMED-CT: 797403527] Dr. Colleen Huang, DO 03-27-2018 Viral gastroenteritis [SNOMED-CT: 041672852] Dr. Colleen Huang, DO 12-26-2017 DIABETES WITH RENAL MANIFESTATIONS TYPE II OR UNSPECIFIED TYPE NOT STATED UNCONTROLLED [SNOMED-CT: 179908383] Dr. Colleen Huang, DO 12-26-2017 Cat bite [SNOMED-CT: 845762482] Dr. Colleen Huang, DO 12-26-2017 DIABETES WITH RENAL MANIFESTATIONS TYPE II OR UNSPECIFIED TYPE NOT STATED UNCONTROLLED [SNOMED-CT: 478025384] Dr. Colleen Huang, DO 09-24-2017 DIABETES MELLITUS WITHOUT MENTION OF COM PLICATION [SNOMED-CT: 437383638] Celestine Huang, DO 09-24-2017 ROUTINE GENERAL MEDICAL EXAMINATION AT A HEALTH CARE FACILITY [SNOMED-CT: 931498476] Celestine Huang, DO 06-02-2017 DIABETES WITH RENAL MANIFESTATIONS TYPE II OR UNSPECIFIED TYPE NOT STATED UNCONTROLLED [SNOMED-CT: 327530116] Dr. Colleen Huang, DO 06-02-2017 Allergic contact dermatitis of male melissa isamar [SNOMED-CT: 302295976] Dr. Colleen Huang, DO 03-07-2017 Other genital problems [ICD10: R68.89] Dr. Colleen Huang, DO 03-07-2017 DIABETES WITH RENAL MANIFESTATIONS TYPE II OR UNSPECIFIED TYPE NOT STATED UNCONTROLLED [SNOMED-CT: 176569054] Dr. Colleen Huang, DO 03-07-2017 Back pain [SNOMED-CT: 574733284] Dr. Colleen Huang, DO 03-07-2017 LUMBAGO [SNOMED-CT: 436439231] Jose Angel Huang, DO 03-07-2017 Penile cellulitis/abscess/boil [SNOMED-CT: 539462608] Dr. Colleen Huang, DO 01-15-2017 DIABETES WITH RENAL MANIFESTATIONS TYPE II OR UNSPECIFIED TYPE NOT STATED UNCONTROLLED [SNOMED-CT: 796521851] Dr. Colleen Huang, DO 01-15-2017 Back pain [SNOMED-CT: 458647788] Dr. Colleen Huang, DO 11-06-2016 DIABETES WITH RENAL MANIFESTATIONS TYPE II OR UNSPECIFIED TYPE NOT STATED UNCONTROLLED [SNOMED-CT: 181722910] Dr. Colleen Huang, DO 11-06-2016 UNSPECIFIED ESSENTIAL HYPERTENSION [SNOMED-CT: 5204079 0] N/A N/A 11-06-2016 Bronchospasm [SNOMED-CT: 8166652] Dr Joe Huang, DO 09-04-2016 Back pain [SNOMED-CT: 740140869] Dr. Colleen Huang, DO 09-04-2016 Primary atypical interstitial pneumonia [SNOMED-CT: 35 631566] Dr. Colleen Huang, DO 09-04-2016 Back pain [SNOMED-CT: 837723099] Dr. Colleen Huang, DO 07-10-2016 DIABETES WITH RENAL MANIFESTATIONS TYPE II OR UNSPECIFIED TYPE NOT STATED UNCONTROLLED [SNOMED-CT: 319025552] Dr. Colleen Huang, DO 07-10-2016 Back pain [SNOMED-CT: 822088520] Dr. Colleen Huang, DO 05-15-2016 CHRONIC KIDNEY DISEASE STAGE II (MILD) [SNOMED-CT: 431 328076] Dr. Colleen Huang, DO 05-15-2016 DIABETES WITH RENAL MANIFESTATIONS TYPE II OR UNSPECIFIED TYPE NOT STATED UNCONTROLLED [SNOMED-CT: 667752695] Dr. Colleen Huang, DO 05-15-2016 LUMBAGO [SNOMED-CT: 450789960] Jose Angel Huang, DO 05-15-2016 Other specified vaccination [ICD10: Z23] Celestine Huang, DO 05-15-2016 Back pain [SNOMED-CT: 948853329] Dr. Colleen Huang, DO 03-18-2016 DIABETES WITH RENAL MANIFESTATIONS TYPE II OR UNSPECIFIED TYPE NOT STATED UNCONTROLLED [SNOMED-CT: 971494696] Dr. Colleen Huang, DO 03-18-2016 DIABETES WITH RENAL MANIFESTATIONS TYPE II OR UNSPECIFIED TYPE NOT STATED UNCONTROLLED [SNOMED-CT: 851899497] Dr. Colleen Huang, DO 01-22-2016 Exogenous hyperlipidemia [SNOMED-CT: 310540175] Dr. Colleen Huang, DO 01-22-2016 ANXIETY STATE UNSPECIFIED [SNOMED-CT: 992968556] Celestine Huang, DO 01-22-2016 DIABETES WITH RENAL MANIFESTATIONS TYPE II OR UNSPECIFIED TYPE NOT STATED UNCONTROLLED [SNOMED-CT: 396057101] Dr. Colleen Huang, DO 12-15-2015 Otitis externa [SNOMED-CT: 1877604] Celestine Huang, DO 12-15-2015 Impacted cerumen [SNOMED-CT: 09144319] Celestine Huang, DO 12-15-2015 DIABETES WITH RENAL MANIFESTATIONS TYPE II OR UNSPECIFIED TYPE NOT STATED UNCONTROLLED [SNOMED-CT: 105399084] Dr. Colleen Huang, DO 11-17-2015 Back pain [SNOMED-CT: 963936544] Dr. Colleen Huang, DO 11-17-2015 UNSPECIFIED SLEEP APNEA [SNOMED-CT: 93635342] Celestine Huang, DO 11-17-2015 UNSPECIFIED ESSENTIAL HYPERTENSION [SNOMED-CT: 8981395 0] N/A N/A 11-17-2015 ROUTINE GENERAL MEDICAL EXAMINATION AT A HEALTH CARE FACILITY [SNOMED-CT: 898512429] Celestine Huang, DO 09-27-2015 Back pain [SNOMED-CT: 870629306] Dr. Colleen Huang, DO 08-11-2015 Dysuria-frequency syndrome [SNOMED-CT: 8095691] Dr. Colleen Huang, DO 08-11-2015 LUMBAGO [SNOMED-CT: 248440038] Jose Angel Huang, DO 06-19-2015 CLOSED FRACTURE OF LUMBAR VERTEBRA WITHO UT SPINAL [SNOMED-CT: 02632719] Celestine Huang, DO 06-19-2015 DIABETES WITH RENAL MANIFESTATIONS TYPE II OR UNSPECIFIED TYPE NOT STATED UNCONTROLLED [SNOMED-CT: 605464676] Dr. Colleen Huang, DO 06-19-2015 DIABETES WITH RENAL MANIFESTATIONS TYPE II OR UNSPECIFIED TYPE NOT STATED UNCONTROLLED [SNOMED-CT: 833389853] Dr. Colleen Huang, DO 04-26-2015 Back pain [SNOMED-CT: 706014697] Dr. Colleen Huang, DO 04-26-2015 Other constipation [ICD9: 564.09] Dr Joe Huang, DO 01-18-2015 Back pain [SNOMED-CT: 308445070] Dr. Colleen Huang, DO 01-18-2015 DIABETES WITH RENAL MANIFESTATIONS TYPE II OR UNSPECIFIED TYPE NOT STATED UNCONTROLLED [SNOMED-CT: 365204355] Dr. Colleen Huang, DO 11-30-2014 CHRONIC KIDNEY DISEASE STAGE II (MILD) [SNOMED-CT: 431 200750] Dr. Colleen Huang, DO 11-30-2014 UNSPECIFIED ESSENTIAL HYPERTENSION [SNOMED-CT: 2417838 0] N/A N/A 11-30-2014 DIABETES WITH RENAL MANIFESTATIONS TYPE II OR UNSPECIFIED TYPE NOT STATED UNCONTROLLED [SNOMED-CT: 576644895] Dr. Colleen Huang, DO 10-19-2014 CHRONIC KIDNEY DISEASE STAGE II (MILD) [SNOMED-CT: 431 964280] Dr. Colleen Huang, DO 10-19-2014 DIABETES WITH RENAL MANIFESTATIONS TYPE II OR UNSPECIFIED TYPE NOT STATED UNCONTROLLED [SNOMED-CT: 962031226] Dr. Colleen Huang, DO 09-16-2014 DIABETES WITH RENAL MANIFESTATIONS TYPE II OR UNSPECIFIED TYPE NOT STATED UNCONTROLLED [SNOMED-CT: 532844777] Dr. Colleen Huang, DO 09-14-2014 CHRONIC KIDNEY DISEASE STAGE II (MILD) [SNOMED-CT: 431 473646] Dr. Colleen Huang, DO 09-14-2014 ROUTINE GENERAL MEDICAL EXAMINATION AT A HEALTH CARE FACILITY [SNOMED-CT: 848011441] Celestine Huang, DO 08-22-2014 Other specified vaccination [ICD10: Z23] Celestine Huang, DO 08-22-2014 DIABETES MELLITUS WITHOUT MENTION OF COM PLICATION [SNOMED-CT: 805994691] N/A N/A 05-09-2014 DIABETES MELLITUS WITHOUT MENTION OF COM PLICATION [SNOMED-CT: 022416181] Celestine Huang, DO 03-16-2014 Back pain [SNOMED-CT: 404971354] Dr. Colleen Huang, DO 03-16-2014 CONTACT DERMATITIS AND OTHER ECZEMA UNSP ECIFIED CA [SNOMED-CT: 418060181] N/A N/A 03-16-2014 UNSPECIFIED ESSENTIAL HYPERTENSION [SNOMED-CT: 8226651 0] N/A N/A 03-16-2014 DIABETES MELLITUS WITHOUT MENTION OF COM PLICATION [SNOMED-CT: 477668213] Celestine Huang, DO 11-05-2013 Back pain [SNOMED-CT: 161584362] Dr. Colleen Huang, DO 11-05-2013 CLOSED FRACTURE OF LUMBAR VERTEBRA WITHO UT SPINAL [SNOMED-CT: 68365807] Celestine Huang, DO 11-05-2013 ANXIETY STATE UNSPECIFIED [SNOMED-CT: 320463279] Celestine Huang, DO 11-05-2013 DIABETES MELLITUS WITHOUT MENTION OF COM PLICATION [SNOMED-CT: 490499388] Celestine Huang, DO 06-11-2013 UNSPECIFIED ESSENTIAL HYPERTENSION [SNOMED-CT: 7321628 0] N/A N/A 06-11-2013 INSOMNIA UNSPECIFIED [SNOMED-CT: 736110083] Dr. Colleen Huang, DO 06-09-2013 ANXIETY STATE UNSPECIFIED [SNOMED-CT: 486038750] Celestine Huang, DO 06-09-2013 DIABETES MELLITUS WITHOUT MENTION OF COM PLICATION [SNOMED-CT: 229419922] Celestine Huang, DO 02-17-2013 HYPERPLASIA OF PROSTATE UNSPECIFIED WITH OUT URINAR [SNOMED-CT: 941550609] Celestine Huang, DO 02-17-2013 CLOSED FRACTURE OF LUMBAR VERTEBRA WITHO UT SPINAL [SNOMED-CT: 38677197] Celestine Huang, DO 02-17-2013 UNSPECIFIED ESSENTIAL HYPERTENSION [SNOMED-CT: 9541693 0] N/A N/A 02-17-2013 ROUTINE GENERAL MEDICAL EXAMINATION AT A HEALTH CARE FACILITY [SNOMED-CT: 196404105] Celestine Huang, DO 11-02-2012 DIABETES MELLITUS WITHOUT MENTION OF COM PLICATION [SNOMED-CT: 346333052] Celestine Huang, DO 08-28-2012 LUMBAGO [SNOMED-CT: 976121442] Jose Angel cornel Reina Cornejo Reina, DO 08-05-2012 DIABETES MELLITUS WITHOUT MENTION OF COM PLICATION [SNOMED-CT: 788212593] Celestine Huang, DO 08-05-2012 UNSPECIFIED ESSENTIAL HYPERTENSION [SNOMED-CT: 4605939 0] N/A N/A 08-05-2012 DIABETES MELLITUS WITHOUT MENTION OF COM PLICATION [SNOMED-CT: 080211376] Celestine Huang, DO 02-26-2012 LUMBAGO [SNOMED-CT: 483549911] Jose Angel Cornejo Reina, DO 02-26-2012 UNSPECIFIED ESSENTIAL HYPERTENSION [SNOMED-CT: 3586144 0] N/A N/A 02-26-2012 DIABETES MELLITUS WITHOUT MENTION OF COM PLICATION [SNOMED-CT: 450467831] Celestine Huang, DO 10-23-2011 LUMBAGO [SNOMED-CT: 581572667] Jose Angel Cornejo [place], DO 10-23-2011 PAIN IN JOINT INVOLVING SHOULDER REGION [SNOMED-CT: 402575262] Celestine Huang, DO 08-21-2011 DIABETES MELLITUS WITHOUT MENTION OF COM PLICATION [SNOMED-CT: 782396308] Celestine Huang, DO 08-21-2011 HYPERPLASIA OF PROSTATE UNSPECIFIED WITH OUT URINAR [SNOMED-CT: 547266212] Celestine Cornejo [place], DO 08-21-2011 UNSPECIFIED ESSENTIAL HYPERTENSION [SNOMED-CT: 6890726 0] N/A N/A 08-21-2011 Other specified vaccination [ICD10: Z23] Celestine Huang, DO 08-21-2011 PAIN IN JOINT INVOLVING SHOULDER REGION [SNOMED-CT: 762745034] Celestine Huang, DO 06-19-2011 DIABETES MELLITUS WITHOUT MENTION OF COM PLICATION [SNOMED-CT: 095825753] Celestine Huang, DO 06-19-2011 HYPERPLASIA OF PROSTATE UNSPECIFIED WITH OUT URINAR [SNOMED-CT: 688258794] Celestnie Huang, DO 06-19-2011 UNSPECIFIED ESSENTIAL HYPERTENSION [SNOMED-CT: 6052616 0] N/A N/A 06-19-2011 Other specified vaccination [ICD10: Z23] Celestine Huang, DO 06-19-2011 PAIN IN JOINT INVOLVING SHOULDER REGION [SNOMED-CT: 728706270] Celestine [place] Colleen Chantal Huang, DO 03-08-2011 DIABETES MELLITUS WITHOUT MENTION OF COM PLICATION [SNOMED-CT: 317689043] Celestine [place] Colleen Huang, DO 03-08-2011 HYPERPLASIA OF PROSTATE UNSPECIFIED WITH OUT URINAR [SNOMED-CT: 047519947] Celestine Reina Huang, DO 03-08-2011 UNSPECIFIED ESSENTIAL HYPERTENSION [SNOMED-CT: 7383801 0] N/A N/A 03-08-2011 PAIN IN JOINT INVOLVING SHOULDER REGION [SNOMED-CT: 344680524] Celestine [place] Colleen Chantal Huang, DO 12-26-2010 DIABETES MELLITUS WITHOUT MENTION OF COM PLICATION [SNOMED-CT: 477497835] Celestine Reina Huang, DO 12-26-2010 HYPERPLASIA OF PROSTATE UNSPECIFIED WITH OUT URINAR [SNOMED-CT: 187226259] Celestine Reina Huang, DO 12-26-2010 UNSPECIFIED ESSENTIAL HYPERTENSION [SNOMED-CT: 7951872 0] N/A N/A 12-26-2010 Back pain [SNOMED-CT: 163389873] Dr. Colleen Huang, DO 12-14-2010 CLOSED FRACTURE OF LUMBAR VERTEBRA WITHO UT SPINAL [SNOMED-CT: 81298954] Celestine Huang, DO 12-14-2010 DIABETES MELLITUS WITHOUT MENTION OF COM PLICATION [SNOMED-CT: 036631752] Celestine Huang, DO 09-24-2010 CLOSED FRACTURE OF LUMBAR VERTEBRA WITHO UT SPINAL [SNOMED-CT: 73356106] Celestine Huang, DO 09-24-2010 UNSPECIFIED ESSENTIAL HYPERTENSION [SNOMED-CT: 6883445 0] N/A N/A 09-24-2010 DIABETES MELLITUS WITHOUT MENTION OF COM PLICATION [SNOMED-CT: 722327529] Celestine Huang, DO 08-29-2010 CLOSED FRACTURE OF LUMBAR VERTEBRA WITHO UT SPINAL [SNOMED-CT: 48967900] Celestine Huang, DO 08-29-2010 UNSPECIFIED ESSENTIAL HYPERTENSION [SNOMED-CT: 0268353 0] N/A N/A 08-29-2010 DIABETES MELLITUS WITHOUT MENTION OF COM PLICATION [SNOMED-CT: 168358234] Celestine Huang, DO 06-27-2010 CLOSED FRACTURE OF LUMBAR VERTEBRA WITHO UT SPINAL [SNOMED-CT: 20790549] Celestine Huang, DO 06-27-2010 UNSPECIFIED ESSENTIAL HYPERTENSION [SNOMED-CT: 7976129 0] N/A N/A 06-27-2010 CLOSED FRACTURE OF LUMBAR VERTEBRA WITHO UT SPINAL [SNOMED-CT: 21227825] Celestine Huang, DO 06-13-2010 DIABETES MELLITUS WITHOUT MENTION OF COM PLICATION [SNOMED-CT: 595371814] Celestine Huang, DO 03-23-2010 IMPOTENCE OF ORGANIC ORIGIN [SNOMED-CT: 705663203] N/A N/A 03-23-2010 UNSPECIFIED ESSENTIAL HYPERTENSION [SNOMED-CT: 5976326 0] N/A N/A 03-23-2010 UNSPECIFIED CATARACT [SNOMED-CT: 214447908] Celestine Huang, DO 01-26-2010 DIABETES MELLITUS WITHOUT MENTION OF COM PLICATION [SNOMED-CT: 583825860] Celestine Huang, DO 01-26-2010 UNSPECIFIED SLEEP APNEA [SNOMED-CT: 03795395] Celestine Huang, DO 01-26-2010 UNSPECIFIED ESSENTIAL HYPERTENSION [SNOMED-CT: 7104863 0] N/A N/A 01-26-2010 UNSPECIFIED DISORDER OF SKIN AND SUBCUTA NEOUS TISS [SNOMED-CT: 99393336] Celestine Huang, DO 01-26-2010 IMPOTENCE OF ORGANIC ORIGIN [SNOMED-CT: 923838755] N/A N/A 01-26-2010 DIABETES MELLITUS WITHOUT MENTION OF COM PLICATION [SNOMED-CT: 251575444] Celestine Huang, DO 12-20-2009 UNSPECIFIED ESSENTIAL HYPERTENSION [SNOMED-CT: 9652670 0] N/A N/A 12-20-2009 HYPERPLASIA OF PROSTATE UNSPECIFIED WITH OUT URINAR [SNOMED-CT: 436134178] Celestine Huang, DO 12-20-2009 UNSPECIFIED DISORDER OF SKIN AND SUBCUTA NEOUS TISS [SNOMED-CT: 98958883] Celestine Huang, DO 12-20-2009 IMPOTENCE OF ORGANIC ORIGIN [SNOMED-CT: 577370103] N/A N/A 12-20-2009 DIABETES MELLITUS WITHOUT MENTION OF COM PLICATION [SNOMED-CT: 790761016] N/A N/A 09-18-2009 UNSPECIFIED ESSENTIAL HYPERTENSION [SNOMED-CT: 1876238 0] N/A N/A 09-18-2009 IMPOTENCE OF ORGANIC ORIGIN [SNOMED-CT: 223173079] N/A N/A 09-18-2009 DIABETES MELLITUS WITHOUT MENTION OF COM PLICATION [SNOMED-CT: 539913906] N/A N/A 06-28-2009 DIABETES MELLITUS WITHOUT MENTION OF COM PLICATION [SNOMED-CT: 367673589] N/A N/A 06-16-2009 UNSPECIFIED ESSENTIAL HYPERTENSION [SNOMED-CT: 9508246 0] N/A N/A 06-16-2009 CONTACT DERMATITIS AND OTHER ECZEMA UNSP ECIFIED CA [SNOMED-CT: 074446352] N/A N/A 06-16-2009 ALLERGIES AND ADVERSE REACTIONS [...] Active atorvastatin 10 mg oral tablet, [RxNorm: 977815] atorvastatin one po hs daily 0 08/14/2020 Active metFORMIN 500 mg oral tablet, [RxNorm: 810779] metFORMIN one po bid 08/14/2020 Active HumaLOG 100 units/mL injectable solution, [RxNorm: 865 098] insulin lispro 6 units this am for sugar of 220....he h as a sliding scale 0 08/14/2020 Active Lotrisone 1%-0.05% topical cream, [RxNorm: 469315] clotrimazole-betamethasone dipropionate topic use as directed apply to genital area bid 30 05/30/2020 Active sertraline 100 mg oral tablet, [RxNorm: 518785] sertraline one po daily 0 9 Active lisinopril 10 mg oral tablet, [RxNorm: 902686] lisinopril one po daily 90 08/13/20 19 Active Linzess 145 mcg oral capsule, [RxNorm: 1560863] linaclotide one po daily prn constipation 90 08/13/2019 Active BD Pen Needle Mini U/F Unknown use as directed for lantus injection 200 2018 Active Lantus Solostar Pen 100 units/mL subcuta neous solution, [RxNorm: 192717] insulin glargine 30 units qpm 0 12/18/2018 Active ProAir HFA 90 mcg/inh inhalation aerosol, [RxNorm: 745 752] albuterol two puffs qid prn wheeze 0 06/02/2017 Active Cortisporin-TC otic suspension, [RxNorm: 962323] colistin/neomycin/thonzonium/HC otic 4 gtts into left EAC bid 5 12/15/2015 Active aspirin 81 mg oral tablet, [RxNorm: 825022] aspirin one daily 1 11/17/2015 Active INSURANCE PROVIDERS Payer Name Policy Type P olicy ID Covered [employer] ID Policy [employer] Health Insurance [id number] ESTRELLA CABALLERO [facility] [id number] THIAGO MENDOZA ASSESSMENTS # Cholelithiasis AND cholecystitis with obstruction (K80.19): # Emotional stress (Z73.3): # Heart murmur (R01.1): PROBLEMS Problem Problem Status D ate Started Date Resolved Date Inactivated CLOSED FRACTURE OF LUMBAR VERTEBRA WITHO UT SPINAL [SNOMED-CT: 94512980] Active 06-13-2010 NA NA Type II diabetes mellitus poorly control led [SNOMED-CT: 749125223] Active 03-22-2020 NA NA Allergic contact dermatitis of male melissa isamar [SNOMED-CT: 377345403] Active 03-07-2017 NA NA Other genital problems [ICD10: R68.89] Active 03-07-2017 NA NA ROUTINE GENERAL MEDICAL EXAMINATION AT A HEALTH CARE FACILITY [SNOMED-CT: 500873676] Active 11-02-2012 NA NA Other specified vaccination [ICD10: Z23] Active 05-15-2016 NA NA DIABETES MELLITUS WITHOUT MENTION OF COM PLICATION [SNOMED-CT: 042696584] Active 12-20-2009 NA NA HYPERPLASIA OF PROSTATE UNSPECIFIED WITH OUT URINAR [SNOMED-CT: 771892736] Active 12-20-2009 NA NA UNSPECIFIED DISORDER OF SKIN AND SUBCUTA NEOUS TISS [SNOMED-CT: 83430072] Active 12-20-2009 NA NA Balanitis [SNOMED-CT: 15781924] Active 05-30-2020 NA NA Bronchospasm [SNOMED-CT: 8841520] Active 09-04-2016 NA NA Generalised itching [SNOMED-CT: 478368926] Active 08-15-2020 NA NA Other hyperlipidemia [ICD10: E78.49] Activ e 07-20-2018 NA NA Penile cellulitis/abscess/boil [SNOMED-CT: 650391660] Active 01-15-2017 NA NA Other constipation [ICD9: 564.09] Active 01-18-2015 NA NA UNSPECIFIED CATARACT [SNOMED-CT: 557237228] Active 01-26-2010 NA NA UNSPECIFIED SLEEP APNEA [SNOMED-CT: 64858127] Active 01-26-2010 NA NA Chronic kidney disease [SNOMED-CT: 981104063] Active 08-23-2020 NA NA Unspecified injury of right shoulder and upper arm [ICD10: S49.91XA] Active 09-26-2020 NA NA Acute pancreatitis [SNOMED-CT: 191865937] Active 08-14-2020 NA NA Contusion of lower back and pelvis, init ial encounter [ICD10: S30.0XXA] Active 12-14-2018 NA NA Exogenous hyperlipidemia [SNOMED-CT: 179199433] Active 09-27-2015 NA NA Otitis externa [SNOMED-CT: 6822828] Active 12-15-2015 NA NA Impacted cerumen [SNOMED-CT: 29734633] Active 12-15-2015 NA NA INSOMNIA UNSPECIFIED [SNOMED-CT: 917637038] Active 06-09-2013 NA NA ANXIETY STATE UNSPECIFIED [SNOMED-CT: 279086972] Active 06-09-2013 NA NA NEED FOR PROPHYLACTIC VACCINATION AND IN OCULATION AGAINST INFLUENZA [SNOMED-CT: 973045693] Active 06-19-2011 NA NA Primary atypical interstitial pneumonia [SNOMED-CT: 35 493711] Active 09-04-2016 NA NA Viral gastroenteritis [SNOMED-CT: 158121823] Active 12-26-2017 NA NA Cat bite - wound [SNOMED-CT: 736856627] Active 12-26-2017 NA NA Cat bite [SNOMED-CT: 325114153] Active 12-26-2017 NA NA Cat bite [SNOMED-CT: 285204905] Active 12-26-2017 NA NA Emotional stress [SNOMED-CT: 578764816] Active 08-30-2020 NA NA Nausea and vomiting [SNOMED-CT: 16399310] Active 09-15-2020 NA NA Heart murmur [SNOMED-CT: 82495727] Active 10-04-2020 NA NA BACKACHE UNSPECIFIED [SNOMED-CT: 953098376] Active 12-14-2010 NA NA PAIN IN JOINT INVOLVING SHOULDER REGION [SNOMED-CT: 674575226] Active 12-26-2010 NA NA Cholelithiasis AND cholecystitis with ob struction [SNOMED-CT: 78072928] Active 10-02-2020 NA NA H/O: Rodriguez's palsy [SNOMED-CT: 200804180] Active 10-02-2020 NA NA Pancreatitis [SNOMED-CT: 91990286] Active 10-02-2020 NA NA Heart murmur, undetermined whether funct ional or organic [SNOMED-CT: 075375461] Active 10-02-2020 NA NA DIABETES MELLITUS WITHOUT MENTION OF COM PLICATION [SNOMED-CT: 156062302] Active 05-19-2009 NA NA UNSPECIFIED ESSENTIAL HYPERTENSION [SNOMED-CT: 1030209 0] Active 05-19-2009 NA NA CONTACT DERMATITIS AND OTHER ECZEMA UNSP ECIFIED CA [SNOMED-CT: 732689866] Active 05-19-2009 NA NA Acute rhinosinusitis [SNOMED-CT: 480236166] Active 09-08-2019 NA NA Upper respiratory infection [SNOMED-CT: 46113361] Active 09-08-2019 NA NA LUMBAGO [SNOMED-CT: 957216020] Active 10-23-2011 NA NA SPRAIN OF UNSPECIFIED SITE OF SHOULDER A ND UPPER A [SNOMED-CT: 669344021] Active 06-28-2009 NA NA Calcific aortic stenosis - bicuspid valv e [SNOMED-CT: 392736505] Active 10-02-2020 NA NA Calcific aortic stenosis - bicuspid valv e [SNOMED-CT: 663930131] Active 10-02-2020 NA NA Back pain [SNOMED-CT: 348413571] Active 08-11-2015 NA NA Dysuria-frequency syndrome [SNOMED-CT: 6195233] Active 08-11-2015 NA NA Thyroiditis [SNOMED-CT: [id number]] Active 08-23-2020 NA NA Arthropathy of left shoulder [SNOMED-CT: 2649388294763 9103] Active 06-03-2018 NA NA Pain in left foot [SNOMED-CT: 565542364202307] Active 06-18-2019 NA NA DIABETES WITH RENAL MANIFESTATIONS TYPE II OR UNSPECIFIED TYPE NOT STATED UNCONTROLLED [SNOMED-CT: [id number]] Active 09-14-2014 NA NA CHRONIC KIDNEY DISEASE STAGE II (MILD) [SNOMED-CT: [id number]] Active 09-14-2014 NA NA IMPOTENCE OF ORGANIC ORIGIN [SNOMED-CT: [id number]] Active 09-18-2009 NA NA PROCEDURES Procedure Date CPT Code Procedure 10/04/2020 14:27:34 20209 Telephone evaluation and management service by a physician or other qualified health intensive care medicine specialist who may report evaluation and management services provided to an established patient, parent, or guardian not originating from a related E/M service provided within the previous 7 days nor leading to an E/M service or procedure within the next 24 hours or soonest available appointment; 11-20 minutes of medical discussion 10/02/2020 08:16:17 32334 Office or other outpatient visit for the [...] high severity. Physicians typically spend 40 minutes pjrt-pe-plcl with the patient and/or family. 10/02/2020 08:16:17 21312 Hemoglobin; glycosylated (A1C) by device cleared by FDA for home use 10/02/2020 08:16:17 3045F Most recent hemoglobin A1c (HbA1c) level 7.0-9.0% (DM) 10/02/2020 08:16:17 G8427 Eligible clinician attests to documenting in the medical record they obtained, updated, or reviewed the patient's current medications 09/27/2020 13:05:10 82867 Telephone evaluation and management service by a physician or other qualified health intensive care medicine specialist who may report evaluation and management services provided to an established patient, parent, or guardian not originating from a related E/M service provided within the previous 7 days nor leading to an E/M service or procedure within the next 24 hours or soonest available appointment; 5-10 minutes of medical discussion 09/26/2020 10:41:47 09252 Telephone evaluation and management service by a physician or other qualified health intensive care medicine specialist who may report evaluation and management services provided to an established patient, parent, or guardian not originating from a related E/M service provided within the previous 7 days nor leading to an E/M service or procedure within the next 24 hours or soonest available appointment; 11-20 minutes of medical discussion 09/15/2020 12:51:28 37481 Telephone evaluation and management service by a physician or other qualified health intensive care medicine specialist who may report evaluation and management services provided to an established patient, parent, or guardian not originating from a related E/M service provided within the previous 7 days nor leading to an E/M service or procedure within the next 24 hours or soonest available appointment; 5-10 minutes of medical discussion 08/30/2020 08:24:51 70369 Telephone evaluation and management service by a physician or other qualified health intensive care medicine specialist who may report evaluation and management services provided to an established patient, parent, or guardian not originating from a related E/M service provided within the previous 7 days nor leading to an E/M service or procedure within the next 24 hours or soonest available appointment; 5-10 minutes of medical discussion 08/23/2020 09:37:34 63382 Telephone evaluation and management service by a physician or other qualified health intensive care medicine specialist who may report evaluation and management services provided to an established patient, parent, or guardian not originating from a related E/M service provided within the previous 7 days nor leading to an E/M service or procedure within the next 24 hours or soonest available appointment; 5-10 minutes of medical discussion 08/15/2020 08:57:07 24316 Office or other outpatient visit for the [...] moderate severity. Physicians typically spend 15 minutes ndas-mc-zxth with the patient and/or family. 08/14/2020 09:42:50 78509 Transitional Care Management Services with the following required elements: Communication (direct contact, telephone, electronic) with the patient and/or caregiver within 2 business days of discharge Medical decision making of high complexity during the service period Nvlq-px-mbzz visit, within 7 calendar days of discharge 08/14/2020 09:42:50 G8427 Eligible clinician attests to documenting in the medical record they obtained, updated, or reviewed the patient's current medications 05/30/2020 13:09:49 43032 Office or other outpatient visit for the [...] moderate severity. Physicians typically spend 15 minutes pqre-ok-miur with the patient and/or family. 03/22/2020 09:10:00 46400 Office or other outpatient visit for the [...] moderate severity. Physicians typically spend 15 minutes mcke-ei-pkaa with the patient and/or family. 03/15/2020 12:24:05 25913 Office or other outpatient visit for the evaluation and management of an established patient, that may not require the presence of a physician. Usually, the presenting problem(s) are minimal. Typically, 5 minutes are spent performing or supervising these services. 03/15/2020 12:24:05 59407 Hemoglobin; glycosylated (A1C) by device cleared by FDA for home use 03/15/2020 12:24:05 3046F Most recent hemoglobin A1c level greater than 9.0% (DM) 09/08/2019 08:19:29 53636 Office or other outpatient visit for the [...] high severity. Physicians typically spend 25 minutes rmzk-jr-wnho with the patient and/or family. 09/08/2019 08:19:29 65712 Hemoglobin; glycosylated (A1C) by device cleared by FDA for home use 09/08/2019 08:19:29 3045F Most recent hemoglobin A1c (HbA1c) level 7.0-9.0% (DM) 08/13/2019 13:55:58 G0439 ANNUAL WELLNESS VISIT, SUBSEQUENT 08/13/2019 13:55:58 02479 Hemoglobin; glycosylated (A1C) by device cleared by FDA for home use 08/13/2019 13:55:58 67619 Influenza virus vaccine, quadrivalent (ccIIV4), derived from cell cultures, subunit, preservative and antibiotic free, 0.5 mL dosage, for intramuscular use 08/13/2019 13:55:58 G0008 ADMINISTRATION OF FLU VACCINE (V04.81) 08/13/2019 13:55:58 Dilated retinal eye exam with interpretation by an circulation manager or vice president payer documented and reviewed (DM) 08/13/2019 13:55:58 G8427 Eligible clinician attests to documenting in the medical record they obtained, updated, or reviewed the patient's current medications 08/13/2019 13:55:58 3017F Colorectal cancer screening results documented and reviewed (PV) 08/13/2019 13:55:58 1036F Current tobacco non-user (CAD, CAP, COPD, PV) (DM) (IBD) 06/18/2019 09:23:34 88219 Office or other outpatient visit for the [...] high severity. Physicians typically spend 25 minutes vzry-el-ogdp with the patient and/or family. 06/18/2019 09:23:34 60342 Hemoglobin; glycosylated (A1C) by device cleared by FDA for home use 06/18/2019 09:23:34 3045F Most recent hemoglobin A1c (HbA1c) level 7.0-9.0% (DM) 03/24/2019 08:14:04 70360 Office or other outpatient visit for the [...] high severity. Physicians typically spend 25 minutes wdsm-tg-rpbe with the patient and/or family. 03/24/2019 08:14:04 32598 Hemoglobin; glycosylated (A1C) by device cleared by FDA for home use 03/24/2019 08:14:04 3045F Most recent hemoglobin A1c (HbA1c) level 7.0-9.0% (DM) 03/24/2019 08:14:04 G8427 Eligible clinician attests to documenting in the medical record they obtained, updated, or reviewed the patient's current medications 03/23/2019 11:45:37 3017F Colorectal cancer screening results documented and reviewed (PV) 12/14/2018 08:01:40 64568 Office or other outpatient visit for the [...] high severity. Physicians typically spend 25 minutes dalc-gz-gpse with the patient and/or family. 12/14/2018 08:01:40 60953 Collection of venous blood by venipuncture 12/14/2018 08:01:40 26715 Hemoglobin; glycosylated (A1C) by device cleared by FDA for home use 12/14/2018 08:01:40 3046F Most recent hemoglobin A1c level greater than 9.0% (DM) 12/14/2018 08:01:40 G8427 Eligible clinician attests to documenting in the medical record they obtained, updated, or reviewed the patient's current medications 09/07/2018 08:17:34 20276 Office or other outpatient visit for the evaluation and management of an established patient, that may not require the presence of a physician. Usually, the presenting problem(s) are minimal. Typically, 5 minutes are spent performing or supervising these services. 09/07/2018 08:17:34 47796 Hemoglobin; glycosylated (A1C) by device cleared by FDA for home use 09/07/2018 08:17:34 3044F Most recent hemoglobin A1c (HbA1c) level less than 7.0% (DM) 07/20/2018 13:54:05 36579 Periodic comprehensive preventive medicine reevaluation and management of an individual including an age and gender appropriate history, examination, counseling/anticipatory guidance/risk factor reduction interventions, and the ordering of laboratory/diagnostic procedures, established patient; 65 years and older 07/20/2018 13:54:05 65195 Hemoglobin; glycosylated (A1C) by device cleared by FDA for home use 07/20/2018 13:54:05 G8427 Eligible clinician attests to documenting in the medical record they obtained, updated, or reviewed the patient's current medications 07/20/2018 13:54:05 1036F Current tobacco non-user (CAD, CAP, COPD, PV) (DM) (IBD) 07/20/2018 13:54:05 3044F Most recent hemoglobin A1c (HbA1c) level less than 7.0% (DM) 06/03/2018 08:23:02 55706 Office or other outpatient visit for the [...] high severity. Physicians typically spend 25 minutes zuhh-go-xrha with the patient and/or family. 06/03/2018 08:23:02 51277 Hemoglobin; glycosylated (A1C) by device cleared by FDA for home use 06/03/2018 08:23:02 3045F Most recent hemoglobin A1c (HbA1c) level 7.0-9.0% (DM) 03/27/2018 08:56:44 43916 Office or other outpatient visit for the [...] moderate severity. Physicians typically spend 15 minutes gcss-gj-xzud with the patient and/or family. 03/27/2018 08:56:44 3045F Most recent hemoglobin A1c (HbA1c) level 7.0-9.0% (DM) 03/27/2018 08:56:44 56312 Hemoglobin; glycosylated (A1C) by device cleared by FDA for home use 03/27/2018 08:56:44 G8427 Eligible clinician attests to documenting in the medical record they obtained, updated, or reviewed the patient's current medications 12/26/2017 08:55:27 79660 Office or other outpatient visit for the [...] high severity. Physicians typically spend 25 minutes pact-kn-ijmc with the patient and/or family. 12/26/2017 08:55:27 3045F Most recent hemoglobin A1c (HbA1c) level 7.0-9.0% (DM) 12/26/2017 08:55:27 66198 Hemoglobin; glycosylated (A1C) by device cleared by FDA for home use 12/26/2017 08:55:27 1036F Current tobacco non-user (CAD, CAP, COPD, PV) (DM) (IBD) 12/26/2017 08:55:27 G8427 Eligible clinician attests to documenting in the medical record they obtained, updated, or reviewed the patient's current medications 12/26/2017 08:55:27 2021F Dilated retinal eye exam with interpretation by an circulation manager or vice president payer documented and reviewed (DM) 09/24/2017 08:27:29 57641 Office or other outpatient visit for the [...] high severity. Physicians typically spend 25 minutes zvfm-yi-vxwg with the patient and/or family. 09/24/2017 08:27:29 38066 Hemoglobin; glycosylated (A1C) by device cleared by FDA for home use 09/24/2017 08:27:29 3045F Most recent hemoglobin A1c (HbA1c) level 7.0-9.0% (DM) 09/24/2017 08:27:29 1036F Current tobacco non-user (CAD, CAP, COPD, PV) (DM) (IBD) 06/02/2017 08:22:37 73073 Periodic comprehensive preventive medicine reevaluation and management [...] CAP, COPD, PV) (DM) (IBD) 06/02/2017 08:22:37 45562 Hemoglobin; glycosylated (A1C) by device cleared by FDA for home use 03/07/2017 09:18:02 17224 Office or other outpatient visit for the [...] high severity. Physicians typically spend 25 minutes tijk-io-xsja with the patient and/or family. 03/07/2017 09:18:02 88501 Hemoglobin; glycosylated (A1C) by device cleared by FDA for home use 01/15/2017 08:13:41 85509 Office or other outpatient visit for the [...] high severity. Physicians typically spend 25 minutes gbap-fo-rett with the patient and/or family. 11/11/2016 09:37:13 19289 Hemoglobin; glycosylated (A1C) by device cleared by FDA for home use 11/06/2016 08:26:32 38531 Office or other outpatient visit for the [...] moderate severity. Physicians typically spend 15 minutes ntfq-mt-msbv with the patient and/or family. 09/04/2016 09:23:52 98180 Office or other outpatient visit for the [...] moderate severity. Physicians typically spend 15 minutes ezuj-wx-juak with the patient and/or family. 07/10/2016 08:21:01 30387 Office or other outpatient visit for the [...] high severity. Physicians typically spend 25 minutes fjaj-aq-jtjh with the patient and/or family. 07/10/2016 08:21:01 50498 Hemoglobin; glycosylated (A1C) by device cleared by FDA for home use 05/15/2016 08:27:09 54531 Office or other outpatient visit for the [...] moderate severity. Physicians typically spend 15 minutes ldgf-oo-rxgn with the patient and/or family. 05/15/2016 08:27:09 68157 Hemoglobin; glycosylated (A1C) by device cleared by FDA for home use 05/15/2016 08:27:09 G0008 ADMINISTRATION OF FLU VACCINE (V04.81) 05/15/2016 08:27:09 Q2037 FLUVRIN 03/18/2016 08:09:18 61843 Office or other outpatient visit for the [...] high severity. Physicians typically spend 25 minutes fykx-qt-swov with the patient and/or family. 01/22/2016 08:23:52 51937 Collection of venous blood by venipuncture 01/22/2016 08:23:52 00531 Office or other outpatient visit for the [...] high severity. Physicians typically spend 25 minutes tmcx-lo-hlwq with the patient and/or family. 12/15/2015 12:17:35 03749 Removal impacted cerumen (separate procedure), 1 or both ears 12/15/2015 12:17:35 78416 Office or other outpatient visit for the [...] moderate severity. Physicians typically spend 15 minutes fonf-bp-aeqf with the patient and/or family. 11/17/2015 08:15:21 61040 Collection of venous blood by venipuncture 11/17/2015 08:15:21 72839 Office or other outpatient visit for the [...] high severity. Physicians typically spend 40 minutes pluh-li-myie with the patient and/or family. 11/17/2015 08:15:21 45004 Hemoglobin; glycosylated (A1C) by device cleared by FDA for home use 09/27/2015 08:29:20 87077 Periodic comprehensive preventive medicine reevaluation and management of an individual including an age and gender appropriate history, examination, counseling/anticipatory guidance/risk factor reduction interventions, and the ordering of laboratory/diagnostic procedures, established patient; 40-64 years 09/27/2015 08:29:20 38571 Collection of venous blood by venipuncture 09/27/2015 08:29:20 93289 Hemoglobin; glycosylated (A1C) by device cleared by FDA for home use 08/11/2015 08:14:29 60468 Office or other outpatient visit for the [...] moderate severity. Physicians typically spend 15 minutes bwnf-iz-hggw with the patient and/or family. 06/19/2015 08:27:11 88963 Office or other outpatient visit for the [...] moderate severity. Physicians typically spend 15 minutes chju-kx-djco with the patient and/or family. 04/26/2015 08:20:21 10483 Office or other outpatient visit for the [...] moderate severity. Physicians typically spend 15 minutes xryh-iz-dnsg with the patient and/or family. 04/26/2015 08:20:21 20412 Hemoglobin; glycosylated (A1C) by device cleared by FDA for home use 01/18/2015 08:11:52 58168 Office or other outpatient visit for the [...] moderate severity. Physicians typically spend 15 minutes yzpq-kl-xvjc with the patient and/or family. 11/30/2014 08:15:54 12583 Office or other outpatient visit for the [...] high severity. Physicians typically spend 25 minutes frej-yn-tdea with the patient and/or family. 11/30/2014 08:15:54 11875 Collection of venous blood by venipuncture 11/30/2014 08:15:54 81358 Hemoglobin; glycosylated (A1C) by device cleared by FDA for home use 10/19/2014 00:00:00 24757 Collection of venous blood by venipuncture 10/19/2014 00:00:00 29898 Office or other outpatient visit for the [...] moderate severity. Physicians typically spend 15 minutes hvzo-nz-gftj with the patient and/or family. 09/16/2014 00:00:00 36507 Office or other outpatient visit for the [...] moderate severity. Physicians typically spend 15 minutes xoot-wb-gxjv with the patient and/or family. 09/14/2014 00:00:00 78101 Office or other outpatient visit for the [...] moderate severity. Physicians typically spend 15 minutes gjoo-kr-rhhg with the patient and/or family. 08/22/2014 15:40:11 79021 INFLUENZA VACCINATION 08/22/2014 15:40:11 03894 Periodic comprehensive preventive medicine reevaluation and management of an individual including an age and gender appropriate history, examination, counseling/anticipatory guidance/risk factor reduction interventions, and the ordering of laboratory/diagnostic procedures, established patient; 40-64 years 08/22/2014 15:40:11 44117 Collection of venous blood by venipuncture 08/22/2014 15:40:11 Q2037 FLUVRIN 05/09/2014 00:00:00 72540 Office or other outpatient visit for the [...] moderate severity. Physicians typically spend 15 minutes fjmn-bo-hogs with the patient and/or family. 05/09/2014 00:00:00 34532 Hemoglobin; glycosylated (A1C) by device cleared by FDA for home use 03/16/2014 00:00:00 05172 Office or other outpatient visit for the [...] high severity. Physicians typically spend 25 minutes smqt-wn-xxjt with the patient and/or family. 03/16/2014 00:00:00 99295 Hemoglobin; glycosylated (A1C) by device cleared by FDA for home use 11/05/2013 00:00:00 87623 Office or other outpatient visit for the [...] moderate severity. Physicians typically spend 15 minutes pvtv-mq-ovsc with the patient and/or family. 11/05/2013 00:00:00 02757 Collection of venous blood by venipuncture 11/05/2013 00:00:00 27454 Hemoglobin; glycosylated (A1C) by device cleared by FDA for home use 06/11/2013 00:00:00 98656 Periodic comprehensive preventive medicine reevaluation and management of an individual including an age and gender appropriate history, examination, counseling/anticipatory guidance/risk factor reduction interventions, and the ordering of laboratory/diagnostic procedures, established patient; 40-64 years 06/11/2013 00:00:00 56828 Hemoglobin; glycosylated (A1C) by device cleared by FDA for home use 06/09/2013 08:31:54 31595 Office or other outpatient visit for the [...] moderate severity. Physicians typically spend 15 minutes ziln-pi-scpi with the patient and/or family. 02/17/2013 08:29:32 89804 Office or other outpatient visit for the [...] moderate severity. Physicians typically spend 15 minutes wzai-xs-lldi with the patient and/or family. 02/17/2013 08:29:32 26289 Collection of venous blood by venipuncture 02/17/2013 08:29:32 62731 Hemoglobin; glycosylated (A1C) by device cleared by FDA for home use 11/02/2012 08:13:33 12898 Periodic comprehensive preventive medicine reevaluation and management of an individual including an age and gender appropriate history, examination, counseling/anticipatory guidance/risk factor reduction interventions, and the ordering of laboratory/diagnostic procedures, established patient; 40-64 years 11/02/2012 08:13:33 42769 Hemoglobin; glycosylated (A1C) by device cleared by FDA for home use 08/28/2012 08:54:25 68732 Office or other outpatient visit for the [...] moderate severity. Physicians typically spend 15 minutes lwff-kv-lijo with the patient and/or family. 08/05/2012 11:43:02 13069 Office or other outpatient visit for the [...] moderate severity. Physicians typically spend 15 minutes kkht-gs-kluj with the patient and/or family. 08/05/2012 11:43:02 07679 Hemoglobin; glycosylated (A1C) by device cleared by FDA for home use 02/26/2012 08:27:00 93729 Collection of venous blood by venipuncture 02/26/2012 08:27:00 15704 Office or other outpatient visit for the [...] high severity. Physicians typically spend 25 minutes ximk-xk-tdvg with the patient and/or family. 10/23/2011 08:31:03 47953 Office or other outpatient visit for the [...] moderate severity. Physicians typically spend 15 minutes zjor-ih-rytp with the patient and/or family. 10/23/2011 08:31:03 13880 Hemoglobin; glycosylated (A1C) by device cleared by FDA for home use 08/21/2011 08:26:48 75609 Collection of venous blood by venipuncture 08/21/2011 08:26:48 38053 Office or other outpatient visit for the [...] moderate severity. Physicians typically spend 15 minutes wads-gg-guyc with the patient and/or family. 06/19/2011 08:43:09 73421 INFLUENZA VACCINATION 06/19/2011 08:43:09 16482 Collection of venous blood by venipuncture 06/19/2011 08:43:09 92658 Immunization administration (includes percutaneous, intradermal, subcutaneous, or intramuscular injections); one vaccine (single or combination vaccine/toxoid) 06/19/2011 08:43:09 96670 Office or other outpatient visit for the [...] high severity. Physicians typically spend 25 minutes obsz-go-kfjf with the patient and/or family. 03/08/2011 08:41:01 77614 Office or other outpatient visit for the [...] high severity. Physicians typically spend 25 minutes kqkp-cg-uuhk with the patient and/or family. 12/26/2010 08:18:16 84357 Collection of venous blood by venipuncture 12/26/2010 08:18:16 59564 Office or other outpatient visit for the [...] moderate severity. Physicians typically spend 15 minutes vuls-dv-efmi with the patient and/or family. 12/14/2010 08:19:33 56110 Office or other outpatient visit for the [...] high severity. Physicians typically spend 25 minutes zvur-ls-qtea with the patient and/or family. 09/24/2010 08:30:35 83040 Office or other outpatient visit for the [...] high severity. Physicians typically spend 25 minutes ceuk-op-mnzz with the patient and/or family. 08/29/2010 00:00:00 15346 Office or other outpatient visit for the [...] high severity. Physicians typically spend 25 minutes bmjv-zx-zikj with the patient and/or family. 06/27/2010 00:00:00 78043 Office or other outpatient visit for the [...] high severity. Physicians typically spend 25 minutes qdvr-oo-lwnd with the patient and/or family. 06/27/2010 00:00:00 G8553 AT [employer] PRESCRIPTION CREATED DURING THE ENCOUNTER WAS GENERATED AND TRANSMITTED ELECTRONICALLY USING A QUALIFIED DNS:Net SYSTEM 06/27/2010 00:00:00 15327 Collection of venous blood by venipuncture 06/13/2010 00:00:00 69418 Office or other outpatient visit for the [...] moderate severity. Physicians typically spend 15 minutes qbvy-bv-vayf with the patient and/or family. 03/23/2010 00:00:00 73976 Office or other outpatient visit for the [...] high severity. Physicians typically spend 25 minutes lsnx-qq-rcgx with the patient and/or family. 03/23/2010 00:00:00 29243 Collection of venous blood by venipuncture 01/26/2010 00:00:00 81101 Office or other outpatient visit for the [...] high severity. Physicians typically spend 25 minutes xhkp-he-ifdm with the patient and/or family. 12/20/2009 00:00:00 04606 Collection of venous blood by venipuncture 12/20/2009 00:00:00 11604 Office or other outpatient visit for the [...] moderate severity. Physicians typically spend 15 minutes xmto-fl-dfxq with the patient and/or family. 09/18/2009 00:00:00 83576 Office or other outpatient visit for the [...] high severity. Physicians typically spend 25 minutes umxv-ts-vdie with the patient and/or family. 09/18/2009 00:00:00 27252 Collection of venous blood by venipuncture 06/28/2009 00:00:00 41656 Office or other outpatient visit for the [...] high severity. Physicians typically spend 25 minutes jfne-qe-iytf with the patient and/or family. 06/16/2009 00:00:00 78994 Office or other outpatient visit for the [...] high severity. Physicians typically spend 25 minutes vvzl-lu-eusy with the patient and/or family. 06/16/2009 00:00:00 90627 Blood, occult, by peroxidase activity (eg, guaiac), qualitative; feces, consecutive collected specimens with single determination, for colorectal neoplasm screening (ie, patient was provided 3 cards or single triple card for consecutive collection) 06/16/2009 00:00:00 10714 Collection of venous blood by venipuncture -- 16584 Collection of v enous blood by venipuncture REASON FOR REFERRAL No Reason for Referral information available. RESULTS Result Type Result Value Relevant Reference Range Interpretation Date GLOMERULAR FILTRATION RAT 38 mL/min -- No [...] 10:29:00 CALCIUM 9.1 mg/dL 8.5-10 .1 No Flag 10/03/2020 10:29:00 ANION GAP 9.0 mmol/L 5-12 No Flag 10/03/2020 10:29:00 AST 20 U/L 15-37 No Flag 10/03/2020 10:29:00 ALT 41 U/L 12-78 No Flag 10/03/2020 10:29:00 ALKALINE PHOSPHATASE 84 U/L 46-116 No Flag 10/03/2020 10:29:00 TOTAL BILIRUBIN 0.5 mg/dL 0.2-1.0 No Flag 10/03/2020 10:29:00 TOTAL PROTEIN 7.5 g/dl 6 .4-8.2 No Flag 10/03/2020 10:29:00 ALBUMIN 4.1 gm/dL 3.4-5.0 No Flag 10/03/2020 10:29:00 PARTIAL THROMBOPLASTIN TI 23.4 SECONDS 21.2- 27.3 No Flag 10/03/2020 10:19:00 PROTHROMBIN TIME (PATIENT 10.2 SECONDS 9.1- 11.6 No Flag 10/03/2020 10:19:00 INR 0.98 0.87-1.06 No Flag 10/03/2020 10:19:00 WHITE BLOOD COUNT 7.3 K/mm3 4.0-10.0 No Flag 10/03/2020 09:57:00 RED BLOOD COUNT 4.64 M/mm3 4.50-6.00 No Flag 10/03/2020 09:57:00 HEMOGLOBIN 13.9 gm/dL 14 .0-18.0 L 10/03/2020 09:57:00 HEMATOCRIT 41.1 % 42.0-5 4.0 L 10/03/2020 09:57:00 MEAN CELL VOLUME 88.6 fl 80-96 No Flag 10/03/2020 09:57:00 MEAN CORPUSCULAR HEMOGLOB 30.0 pg 27.0-31.0 No Flag 10/03/2020 09:57:00 MEAN CORPUSCULAR HGB CONC 33.8 g/dl 32.0- 36.0 No [facility] 10/03/2020 09:57:00 RED CELL DISTRIBUTION WID 12.5 % 10.0-14.5 No [facility] 10/03/2020 09:57:00 PLATELET COUNT 298 K/mm3 172-450 No [facility] 10/03/2020 09:57:00 MEAN PLATELET VOLUME 9.1 fl 9.0-13.0 No [facility] 10/03/2020 09:57:00 GRAN % 66.2 % 50-80.0 No Flag 10/03/2020 09:57:00 IG% 0.3 % 0.0-0.2 H 10/03/2020 09:57:00 LYMPH % 20.8 % 25.0-50.0 L 10/03/2020 09:57:00 MONO % 8.0 % 2.0-10.0 No Flag 10/03/2020 09:57:00 EOS % 4.3 % 0-5.0 No Flag 10/03/2020 09:57:00 BASO % 0.4 % 0.0-2.0 No Flag 10/03/2020 09:57:00 GRAN # 4.8 K/mm3 2.0-8.00 No Flag 10/03/2020 09:57:00 IG# 0.0 K/mm3 0.0-0.2 No Flag 10/03/2020 09:57:00 LYMPH # 1.5 K/mm3 1.0-5.0 No Flag 10/03/2020 09:57:00 MONO # 0.6 K/mm3 0.10-1. 20 No Flag 10/03/2020 09:57:00 EOS # 0.3 K/mm3 0.0-0.5 No Flag 10/03/2020 09:57:00 BASO # 0.0 K/mm3 0.0-0.2 No Flag 10/03/2020 09:57:00 TSH 3.887 uIU/mL 0.36-3. 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 : 1950 Requested By: Jung Sofia Order Number: [id number] Reading MD: Shira Otero Measurements Intervals [place] Rate: 77 P: 68 IN: 152 QRS: -30 QRSD: 100 T: 44 QT: 384 QTc: 437 Interpretive Statements SINUS RHYTHM BORDERLINE LEFT AXIS DEVIATION LOW VOLTAGE LIMB NSTTW ABNORMALITY NO PRIOR FOR COMPARISON Electronically Signed On 04-21-2016 20:05:36 EDT by Shira Otero DD: PEDRO 04/20/2016 1312 DT: EPIPHANY 04/21/20162004 DS: PEDRO 04/21/20162004 The Following Link and Pin can be used to access images associated with this report: [email or web address] [id number] N/A N/A 04/20/2016 13:07:00 HEMOGLOBIN A1c [...] 01/22/2016 19:03:00 AST/SGOT 24 U/L 15-37 No [facility] 01/22/2016 19:03:00 ALT/SGPT 35 U/L 12-78 No [facility] 01/22/2016 19:03:00 ALKALINE PHOSPHATASE 65 U/L 45-117 No [facility] 01/22/2016 19:03:00 BILIRUBIN,TOTAL 0.5 MG/DL 0.2-1.0 No [facility] 01/22/2016 19:03:00 TOTAL PROTEIN 7.5 GM/DL 6.4-8.2 No [facility] 01/22/2016 19:03:00 ALBUMIN 4.2 GM/DL 3.2-5.2 No [facility] 01/22/2016 19:03:00 ALBUMIN/GLOBULIN RATIO 1.27 1.00-1.93 No [facility] 01/22/2016 19:03:00 TRIGLYCERIDES LEVEL 207 MG/DL <150 H 01/22/2016 19:03:00 CHOLESTEROL LEVEL 153 MG/DL <200 No [facility] 01/22/2016 19:03:00 HDL CHOLESTEROL 40 MG/DL >40 No [facility] 01/22/2016 19:03:00 LDL CHOLESTEROL 71.6 MG/DL <100 No [facility] 01/22/2016 19:03:00 NON-HDL-C 113 MG/DL -- No [facility] 01/22/2016 19:03:00 CHOLESTEROL RISK RATIO 3.825 <5 No [facility] 01/22/2016 19:03:00 WHITE BLOOD COUNT 5.9 K/mm3 5.0-10.0 No [facility] 01/22/2016 18:56:00 RED BLOOD COUNT 4.80 M/mm3 4.70-6.10 No [facility] 01/22/2016 18:56:00 HEMOGLOBIN 14.7 g/dl 14. 0-18.0 No [facility] 01/22/2016 18:56:00 HEMATOCRIT 44.1 % 42.0-5 2.0 No [facility] 01/22/2016 18:56:00 MEAN CORPUSCULAR VOLUME 91.8 fl 80.0-96.0 No [facility] 01/22/2016 18:56:00 MEAN CORPUSCULAR HEMOGLOBIN 30.5 pg 27.0- 33.0 No [facility] 01/22/2016 18:56:00 MEAN CORPUSCULAR HGB CONC 33.3 g/dl 32.0- 36.5 No [facility] 01/22/2016 18:56:00 RED CELL DISTRIBUTION WIDTH 13.9 [...] 08/11/2015 09:01:00 URINE PROTEIN TRACE mg/dL NEGATIVE 08/11/2015 09:01:00 URINE GLUCOSE (UA) 1000(4+) mg/dL NEGATIVE 08/11/2015 09:01:00 URINE KETONE NEGATIVE mg/dL NEGATIVE [...] 08/11/2015 09:01:00 URINE PROTEIN TRACE mg/dL NEGATIVE 08/11/2015 09:01:00 URINE GLUCOSE (UA) 1000(4+) mg/dL NEGATIVE H 08/11/2015 09:01:00 URINE KETONE NEGATIVE mg/dL NEGATIVE No Flag 08/11/2015 09:01:00 URINE UROBILINOGEN NORMAL MG/DL NORMAL No Flag 08/11/2015 09:01:00 URINE BILIRUBIN NEGATIVE NEGATIVE No Flag 08/11/2015 09:01:00 URINE BLOOD NEGATIVE NE GATIVE No Flag 08/11/2015 09:01:00 SOCIAL HISTORY Social History Observation Description Dates Observed Smoking Status Former smoker, [TERI D-CT: [id number]], 75.00 pk yrs/20.00 yrs quit 11/30/2014 - 11/30/2014 TREATMENT PLAN Encounter Date [facility] 10/04/2020 14:27:34 This visit was spent in [...] helping him alot will have hgac in b 5 min phone only 09/15/2020 12:51:28 This [...] Appointment scheduled for a telehealth visit to [facility] on 03/22/2020. 03/15/2020 12:24:05 HgA1c is 10.0% Appointment scheduled for a telehealth visit to [facility] on 03/22/2020. 10/25/2019 08:14:07 Plan printed and [...] 8.6% down from 9 the end of june Counseling and coordination of care: time [...] 8.6% down from 9 the end of 09/08/2019 08:19:29 Plan printed [...] # 360, RF: 3. (Transmitted by Colleen Huang DO) PRESCRIBE: lisinopril 10 mg oral tablet, one po daily, # 90, RF: 3. (Transmitted by Colleen Huang DO) PRESCRIBE: Linzess 145 mcg oral capsule, one po daily prn constipation, # 90, RF: 3. (Transmitted by Colleen Huang DO) PRESCRIBE: BD [...] the Left Deltoid (Mfg: SEQIRUS lot no. [id number], expires 02/29/2020) ORDERED/ADVISED: Order Date 08-13-2019 - [...] # 360, RF: 3. (Transmitted by Colleen Honey Brook, DO) PRESCRIBE: lisinopril 10 mg oral tablet, one po daily, # 90, RF: 3. (Transmitted by Colleen Honey Brook, DO) PRESCRIBE: Linzess 145 mcg oral capsule, one po daily prn constipation, # 90, RF: 3. (Transmitted by Colleen Honey Brook, DO) PRESCRIBE: BD Pen Needle Mini U/F, use as directed for lantus injection, # 200, RF: 3. (Transmitted by Colleen Huang, DO) PRESCRIBE: atorvastatin 10 mg oral tablet, one po daily, # 90, RF: 3. (Transmitted by Colleen Honey Brook, DO) CHANGED Current Meds: Trulicity Pen 1.5 [...] the Left Deltoid (Mfg: SEQIRUS lot no. [id number], expires 02/29/2020) ORDERED/ADVISED: Order Date 08-13-2019 - [...] # 18, RF: 3. (Transmitted by Colleen Honey Brook, DO) PRESCRIBE: sertraline 100 mg oral tablet, two po daily, # 180, RF: 3. (Transmitted by Colleen Honey Brook, DO) PRESCRIBE: metFORMIN 500 mg oral tablet, two po bid, # 360, RF: 3. (Transmitted by Colleen Honey Brook, DO) PRESCRIBE: lisinopril 10 mg oral tablet, one po daily, # 90, RF: 3. (Transmitted by Colleenastamuse company, ltd.ard, DO) PRESCRIBE: Linzess 145 mcg oral capsule, one po daily prn constipation, # 90, RF: 3. (Transmitted by Colleen[employer]am[employer] ltd.ard, DO) PRESCRIBE: BD Pen Needle Mini U/F, use as directed for lantus injection, # 200, RF: 3. (Transmitted by Colleen Honey Brook, DO) PRESCRIBE: atorvastatin 10 mg oral tablet, one po daily, # 90, RF: 3. (Transmitted by Colleenastam[employer] ltd.ard, DO) CHANGED Current Meds: Trulicity Pen 1.5 [...] the Left Deltoid (Mfg: SEQIRUS lot no. [id number], expires 02/29/2020) ORDERED/ADVISED: Order Date 08-13-2019 - [...] Flakito Estes MD You can download a [employer] melba to your computer and get these books on [employer]. Watch the movie "the magic pill" documentary on [employer] and watch it Counseling and coordination of [...] Flakito Estes MD You can download a [employer] melba to your computer and get these books on [employer]. Watch the movie "the magic pill" documentary on [employer] and watch it 06/18/2019 09:23:34 Plan printed and provided to patient: PRESCRIBE: ibuprofen 800 mg oral tablet, one po tid with food, # 90, RF: 1. (Transmitted by Colleen Huang DO) Barber cinthia PROVIDED HM: CDSMP Given: "the obesity code", " the diabetes code", and "quide to fasting" by Flakito Estes MD You can download a sylvia melba to your computer and get these books on [employer]. Watch the movie "the magic pill" documentary on [employer] Estes [employer] and watch it 03/24/2019 08:14:04 Plan printed and provided to patient: PROVIDED HM: CDSMP Given: "the obesity code", " the diabetes code", and "quide to fasting" by Flakito Estes MD You can download a sylvia melba to your iphone for free. then you can go to [employer] and download books at a reduced jean. [...] can download a sylvia melba to your MPSTORhone for free. then you can go to [employer] and download books at a reduced jean. [...] can download a sylvia melba to your MPSTORhone for free. then you can go to [employer] and download books at a reduced jean. Watch the movie called "the magic pill" PROVIDED HM: Recommendations for Testing HgbA1C in Individuals with Diabetes Mellitus Given: 8.1% Counseling and coordination of care: time a significant factor for this patient encounter...30minutes [facility] 12/14/2018 08:01:40 PRESCRIBE: ibuprofen 800 mg [...] 5. (Transmitted by Colleen Huang, DO) PRESCRIBE: Lantus [...] a significant factor for this patient encounter...25minutes [facility] 12/14/2018 08:01:40 PRESCRIBE: ibuprofen 800 mg oral [...] 5. (Transmitted by Colleen Reina, DO) PRESCRIBE: Lantus Solostar Pen 100 units/mL subcutaneous solution, 14 units sq daily, # 5, RF: 0. PRESCRIBE: metFORMIN 500 mg oral tablet, two po bid, # 360, RF: 2. (Transmitted by Colleen Honey Brook, DO) PRESCRIBE: metFORMIN 500 mg oral tablet, [...] with Diabetes Mellitus Given: 9.6% 09/07/2018 08:17:34 FISH AND WILDLIFE WARDEN recheck in 3 months PROVIDED HM: Recommendations for Testing HgbA1C in Individuals with Diabetes Mellitus Given: 6.9% 09/07/2018 08:17:34 FISH AND WILDLIFE WARDEN recheck in 3 months 07/20/2018 13:54:05 Plan [...] 3. (Transmitted by Colleen Huang, ) PRESCRIBE: Linzess 145 mcg oral capsule, one [...] # 5, RF: 0. (Transmitted by Colleen Honey BrookDO joelle) Date Prescribed: 06/26/2018 REMOVED from Current Meds: [...] # 14, RF: 0. (Transmitted by Colleen Huang, ) Plan printed and provided to patient: Push [...] RF: 3. (Transmitted by Colleen Huang, DO) Date Prescribed: 06/02/2017 I want you to cut this in half when you start the trulicity and then cut it out when you increase the trulicity dose in a month. Please call me if you have any problems with this. PRESCRIBE: Trulicity Pen 1.5 mg/0.5 mL subcutaneous solution, use one dose weekly as directed, # 4, RF: 5. (Transmitted by Colleen Huang, DO) when previous script is completed. PRESCRIBE: Trulicity Pen 0.75 mg/0.5 mL subcutaneous solution, inject 0.75mg sq weekly for 4 weeks and then go to higher dose, # 4, RF: 0. (Transmitted by Colleen Huang, DO) PROVIDED HM: Recommendations for Testing HgbA1C in Individuals with Diabetes Mellitus Given: 8.5% PROVIDED HM: Tobacco use counseling and interventions: non- adults Given: NI 09/24/2017 08:27:29 Plan printed and provided to patient: REMOVED from Current Meds: glipiZIDE 10 mg oral tablet, one po daily, # 90, RF: 3. (Transmitted by Colleen Huang, DO) Date Prescribed: 06/02/2017 I want you to cut this in half when you start the trulicity and then cut it out when you increase the trulicity dose in a month. Please call me if you have any problems with this. PRESCRIBE: Trulicity Pen 1.5 mg/0.5 mL subcutaneous solution, use one dose weekly as directed, # 4, RF: 5. (Transmitted by Colleen Huang, DO) when previous script is completed. PRESCRIBE: Trulicity Pen 0.75 mg/0.5 mL subcutaneous solution, inject 0.75mg sq weekly for 4 weeks and then go to higher dose, # 4, RF: 0. (Transmitted by Colleen Huang, DO) PROVIDED HM: [...] # 1, RF: 3. (Transmitted by Colleen Honey Brook, DO) PRESCRIBE: metFORMIN 500 mg oral tablet, one po bid pc, # 180, RF: 3. (Transmitted by Colleen Huang, DO) PRESCRIBE: lisinopril 10 mg oral tablet, one po daily, # 90, RF: 3. (Transmitted by Colleen Reina, DO) PRESCRIBE: Linzess 145 mcg oral capsule, one po daily prn constipation, # 90, RF: 3. (Transmitted by Colleen Honey Brook, DO) PRESCRIBE: Lantus Solostar Pen 100 units/mL subcutaneous solution, 25 units hs daily, # 5, RF: 5. (Transmitted by Colleen Honey Brook, DO) PRESCRIBE: glipiZIDE 10 mg oral tablet, one po daily, # 90, RF: 3. (Transmitted by Colleen Reina, DO) PRESCRIBE: BD Pen Needle Mini U/F, use as directed for lantus injection, # 100, RF: 3. (Transmitted by Colleen Honey Brook, DO) PRESCRIBE: atorvastatin 10 mg oral tablet, one po daily, # 90, RF: 3. (Transmitted by Colleen Reina, DO) He is walking at least a [...] diabetes related complication....14% decrease in risk of NM.....12%decrease risk of stroke...and a 37% decrease risk [...] we have to work with? Time/Travel/Tastes/Treatments?? Arrange: Cell Biologist? [email or web address] Airborne Operations Superintendent?www.[email or web address] Pharmacy/Pharmacy benefits Literature? Recipes Diabetes [place] www.diabetes.org www.ncbde.org www.diabeeseducator.org/deap www.ndep.nih.gov www.diabetes.org www.learningaboutdiabetes.org www.diabeticconnect.com www.ROCKInow.Sword & Plough www.diabeteswhattoknow.com www.peersforprogress.org 7 [place] Read about tanner 06/02/2017 08:22:37 Plan printed and provided to patient: PRESCRIBE: sertraline 100 mg oral tablet, one po daily, # 90, RF: 3. (Transmitted by Colleen Huang, ) PRESCRIBE: ProAir HFA 90 mcg/inh inhalation aerosol, two puffs qid prn wheeze, # 1, RF: 3. (Transmitted by Colleen Huang, ) PRESCRIBE: metFORMIN 500 mg oral tablet, one po bid pc, # 180, RF: 3. (Transmitted by Colleen Huang, DO) PRESCRIBE: lisinopril 10 mg oral tablet, one po daily, # 90, RF: 3. (Transmitted by Colleen Huang, DO) PRESCRIBE: Linzess 145 mcg oral capsule, one po daily prn constipation, # 90, RF: 3. (Transmitted by Colleenastamuse company, ltd.ard, DO) PRESCRIBE: Lantus Solostar Pen 100 units/mL subcutaneous solution, 25 units hs daily, # 5, RF: 5. (Transmitted by Colleen Reina, DO) PRESCRIBE: glipiZIDE 10 mg oral tablet, one po daily, # 90, RF: 3. (Transmitted by Colleen Huang, DO) PRESCRIBE: BD Pen Needle Mini U/F, use as directed for lantus injection, # 100, RF: 3. (Transmitted by Colleen Honey Brook, DO) PRESCRIBE: atorvastatin 10 mg oral tablet, one po daily, # 90, RF: 3. (Transmitted by Colleen Reina, DO) He is walking at least a [...] diabetes related complication....14% decrease in risk of NM.....12%decrease risk of stroke...and a 37% decrease risk [...] we have to work with? Time/Travel/Tastes/Treatments?? Arrange: Cell Biologist? www.[email or web address] Airborne Operations Superintendent?www.diabeteseducator.org Pharmacy/Pharmacy benefits Literature? Recipes Diabetes [place] www.diabetes.org www.ncbde.org www.diabeeseducator.org/deap www.ndep.nih.gov www.diabetes.org www.learningaboutdiabetes.org www.diabeticconnect.com www.ROCKInow.[employer] www.diabeteswhattXi3now.com www.peersforprogress.org [place] Read about tanner [...] RF: 3. (Transmitted by Colleen Huang DO) He is walking at least a [...] diabetes related complication....14% decrease in risk of NM.....12%decrease risk of stroke...and a 37% decrease risk [...] we have to work with? Time/Travel/Tastes/Treatments?? Arrange: Cell Biologist? www.eatright.org Airborne Operations Superintendent?www.diabeteseducator.org Pharmacy/Pharmacy benefits Literature? Recipes Diabetes [place] www.diabetes.org www.ncbde.org www.diabeeseducator.org/deap www.ndep.nih.gov www.diabetes.org www.learningaboutdiabetes.org www.diabeticconnect.com www.whatXi3now.[employer] www.diabeteswhattoknow.com www.peersforprogress.org [place] Read about tanner [...] ICD Codes (M54.9, E11.29, M54.5) ORDERED/ADVISED: - Buscemi, Melchiore (Urology) ICD Codes (L23.9, R68.89) 03/07/2017 09:18:02 [...] ICD Codes (M54.9, E11.29, M54.5) ORDERED/ADVISED: - Jasis Gutierrez (Urology) ICD Codes (L23.9, R68.89) 01/15/2017 [...] diabetes related complication....14% decrease in risk of NM.....12%decrease risk of stroke...and a 37% decrease risk [...] we have to work with? Time/Travel/Tastes/Treatments?? Arrange: Cell Biologist? www.eatright.org Airborne Operations Superintendent?www.diabeteseducator.org Pharmacy/Pharmacy benefits Literature? Recipes Diabetes [place] www.diabetes.org www.ncbde.org www.diabeeseducator.org/deap www.ndep.nih.gov www.diabetes.org www.learningaboutdiabetes.org www.diabeticconnect.com www.ROCKInoCognitive Health Innovations.[employer] www.diabeteswhattXi3now.[employer] www.peersforprogress.org [place] PROVIDED HM: Obesity: [...] diabetes related complication....14% decrease in risk of NM.....12%decrease risk of stroke...and a 37% decrease risk [...] we have to work with? Time/Travel/Tastes/Treatments?? Arrange: Cell Biologist? www.eatright.org Airborne Operations Superintendent?www.diabeteseducator.org Pharmacy/Pharmacy benefits Literature? Recipes Diabetes [place] www.diabetes.org www.ncbde.org www.diabeeseducator.org/deap www.ndep.nih.gov www.diabetes.org www.learningaboutdiabetes.org www.diabeticconnect.[employer] www.Sumerian.[employer] www.diabeteswhattXi3now.com www.peersforprogress.org [place] PROVIDED HM: Obesity: [...] diabetes related complication....14% decrease in risk of NM.....12%decrease risk of stroke...and a 37% decrease risk [...] we have to work with? Time/Travel/Tastes/Treatments?? Arrange: Cell Biologist? www.eatright.org Airborne Operations Superintendent?www.diabeteseducator.org Pharmacy/Pharmacy benefits Literature? Recipes Diabetes [place] www.diabetes.org www.ncbde.org www.diabeeseducator.org/deap www.ndep.nih.gov www.diabetes.org www.learningaboutdiabetes.org www.diabeticconnect.com www.whatXi3now.[employer] www.diabeteswhattoknow.com www.peersforprogress.org 7 [place] PROVIDED HM: [...] 60, RF: 0. PROVIDED HM: CDSMP Given: Seedrs "Addictocarb Carb" Consider the Mediterranean Diet. Eliminate [...] 60, RF: 0. PROVIDED HM: CDSMP Given: Seedrs "Addictocarb Carb" Consider the Mediterranean Diet. Eliminate [...] # 1, RF: 1. (Transmitted by Colleen Huang DO) PRESCRIBE: azithromycin 250 mg oral tablet, two [...] support/Move your body/Think positive/Be good to yourself/ [place] [employer] Diabetic Educators....7 behaviors for diabetes self management. 09/04/2016 09:23:52 Plan printed and provided to patient: PRESCRIBE: oxyCODONE-acetaminophen 5 mg-325 mg oral tablet, one po bid prn pain, # 60, RF: 0. PRESCRIBE: ProAir HFA 90 mcg/inh inhalation aerosol, two puffs qid prn wheeze, # 1, RF: 1. (Transmitted by Colleen Huang, ) PRESCRIBE: azithromycin 250 mg oral tablet, [...] support/Move your body/Think positive/Be good to yourself/ [place] [employer] Diabetic Educators....7 behaviors for diabetes self management. 09/04/2016 09:23:52 Plan printed and provided to patient: PRESCRIBE: oxyCODONE-acetaminophen 5 mg-325 mg oral tablet, one po bid prn pain, # 60, RF: 0. PRESCRIBE: ProAir HFA 90 mcg/inh inhalation aerosol, two puffs qid prn wheeze, # 1, RF: 1. (Transmitted by Colleen Huang DO) PRESCRIBE: azithromycin 250 mg oral tablet, two [...] support/Move your body/Think positive/Be good to yourself/ [place] [employer] Diabetic Educators....7 behaviors for diabetes [...] the Left Deltoid (Mfg: OTHER lot no. [id number], expires 01/08/2017) PROVIDED HM: Screening for Depression in Adults Given: Not present Percoset script to [facility] 05/15/2016 08:27:09 Plan printed and provided to patient: PROVIDED VACCINATION: 1 dose of Fluvirin, 0.5 mL IM in the Left Deltoid (Mfg: OTHER lot no. [id number], expires 01/08/2017) PROVIDED HM: Screening for Depression in Adults Given: Not present Percoset script to [facility] 05/15/2016 08:27:09 Plan printed and provided to patient: PROVIDED VACCINATION: 1 dose of Fluvirin, 0.5 mL IM in the Left Deltoid (Mfg: OTHER lot no. [id number], expires 01/08/2017) PROVIDED HM: Screening for Depression in Adults Given: Not present Deonna script to [facility] 03/18/2016 08:09:18 Plan printed and provided to [...] daily, # 5, RF: 3. (Transmitted by Colleen Huang, DO) [...] 3. (Transmitted by Colleen Huang, DO) PRESCRIBE: glipiZIDE 10 mg oral tablet, one po daily, # 90, RF: 3. (Transmitted by Tujiaard, DO) PRESCRIBE: cholecalciferol 50,000 intl units oral capsule, one po weekly, # 12, RF: 3. (Transmitted by Tujiaard, DO) PRESCRIBE: atorvastatin 10 mg oral tablet, one po daily, # 90, RF: 3. (Transmitted by Tujiaard, DO) ORDERED/ADVISED: - CBC with diff (automated) ICD [...] daily, # 1, RF: 5. (Transmitted by Tujiaard, DO) PRESCRIBE: Cortisporin-TC otic suspension, 4 gtts into left EAC bid, # 5, RF: 0. (Transmitted by Tujiaard, DO) Increase lantus insulin to 24 units [...] pc, # 180, RF: 0. (Transmitted by Tujiaard, DO) PRESCRIBE: lisinopril 10 mg oral tablet, one po daily, # 90, RF: 0. (Transmitted by Tujiaard, DO) PRESCRIBE: glipiZIDE 10 mg oral tablet, one po daily, # 90, RF: 0. (Transmitted by Tujiaard, DO) PRESCRIBE: Lantus Solostar Pen 100 units/mL subcutaneous solution, 20 units hs daily, # 1, RF: 5. (Transmitted by Colleen Huang DO) PRESCRIBE: aspirin 81 mg oral tablet, [...] the Left Deltoid (Mfg: NOVARTIS lot no. [id number], expires 01/29/2015) ORDERED/ADVISED: - CBC with diff [...] 13:52:33 Instructions printed and provided to patient: FITTER TACKER site consulted prior to scheduled drug prescription. [...] # 225, RF: 3. (Transmitted by Colleen Honey Brook, DO) DISCONTINUE: metroNIDAZOLE 0.75% topical lotion apply [...] bid prn pain, # 60, RF: NONE. FITTER TACKER site consulted prior to scheduled drug prescription. [...] RF: 3. (Transmitted by Colleen Huang DO) PROVIDED HM: [...] Ds) ICD9 Codes (250.00, 600.9, 272.4, 401.9) FITTER TACKER site consulted prior to scheduled drug prescription. [...] RF: 3. (Transmitted by Colleen Huang DO) Instructions printed and provided to patient: PRESCRIBE: [...] # 1, RF: 5. (Transmitted by Colleen Huang DO) [...] RF: 3. (Transmitted by Colleen Huang DO) DISCONTINUE: cyclobenzaprine 10 mg oral tablet one [...] # 45, RF: 3. (Transmitted by Colleen Reina, ) PRESCRIBE: BD ultrafine needles for byetta injection, one bid as directed, # 180, RF: 3. (Transmitted by Colleen Reina, [employer]) PRESCRIBE: Byetta Prefilled Pen 10 mcg/0.04 mL subcutaneous solution, 10mcg sq bid ac, # 180, RF: 3. (Transmitted by Colleen Reina, ) ORDERED/ADVISED: - CBC with diff (automated) ICD9 [...] # 180, RF: 3. (Transmitted by Colleen ReinaDO joelle) If it hurts don't do it. Motion [...] 3. (Transmitted by Colleen Huang, DO) PRESCRIBE: Crestor 5 mg oral tablet, one half po daily, # 45, RF: 3. (Transmitted by Colleen Huang DO) PRESCRIBE: metformin 1000 mg oral tablet, one po pc breakfast and supper, one half after lunch, # 225, RF: 3. (Transmitted by Colleen Huang DO) All sent to [facility] today and 06/19/11. DISCONTINUE: gabapentin 300 [...] # 225, RF: 3. (Transmitted by Colleen Haung DO) PRESCRIBE: lisinopril 10 mg oral tablet, one po daily, # 90, RF: 3. (Transmitted by Colleen Huang DO) PRESCRIBE: Crestor 5 mg oral tablet, one half po daily, # 45, RF: 3. (Transmitted by Colleen Huang DO) PROVIDED HM: [...] ml IM in the L DELTOID (Mfg: [employer] lot no. [id number], expires 02/28/2012) ORDERED/ADVISED: - Urine microalbumin (AODM) [...] PRESCRIBE: Gabapentin 100mg, one or two po [id number] prn back pain, # 180, RF: 5. [...]
--- OUTSIDE RECORDS SUMMARY | 2020-10-17 11:12 | CCD ---
Author Author Colleen Huang DO Organization Colleen Huang DO Address [address] [place], [place] [id number] Care Team Providers Care Grain Combiner Name Role Phone Reina GOLDEN MA, Celestine Renteria Unavailable Colleen Huang DO Unavailable Colleen Huang DO PCP ENCOUNTERS Encounter Performer Loca tion Date Cholelithiasis AND cholecystitis with ob struction [SNOMED-CT: 91951393] Dr. Colleen Huang DO 10-04-2020 Emotional stress [SNOMED-CT: 323224793] Dr. Colleen Huang DO 10-04-2020 Heart murmur [SNOMED-CT: 52137048] Flora Huang DO 10-04-2020 Unspecified injury of right shoulder and upper arm [ICD10: S49.91XA] Dr. Colleen Huang DO 09-27-2020 Unspecified injury of right shoulder and upper arm [ICD10: S49.91XA] Dr. Colleen Huang DO 09-26-2020 Type II diabetes mellitus poorly control led [SNOMED-CT: 627966015] Dr. Colleen Huang DO 09-26-2020 Type II diabetes mellitus poorly control led [SNOMED-CT: 641069290] Dr. Colleen Huang DO 09-15-2020 Nausea and vomiting [SNOMED-CT: 39559630] Dr. Colleen Huang DO 09-15-2020 Emotional stress [SNOMED-CT: 144177226] Dr. Colleen Huang, DO 08-30-2020 Type II diabetes mellitus poorly control led [SNOMED-CT: 440562437] Dr. Colleen Huang, DO 08-30-2020 Acute pancreatitis [SNOMED-CT: 479281198] Dr. Colleen Huang, DO 08-23-2020 Type II diabetes mellitus poorly control led [SNOMED-CT: 424011513] Dr. Colleen Huang, DO 08-23-2020 Generalised itching [SNOMED-CT: 007725374] Celestine Huang, DO 08-23-2020 Thyroiditis [SNOMED-CT: 89757073] Dr Joe Huang, DO 08-23-2020 Chronic kidney disease [SNOMED-CT: 472992899] Dr. Colleen Huang, DO 08-23-2020 Acute pancreatitis [SNOMED-CT: 658292408] Dr. Colleen Huang, DO 08-15-2020 Type II diabetes mellitus poorly control led [SNOMED-CT: 925124949] Dr. Colleen Huang, DO 08-15-2020 Generalised itching [SNOMED-CT: 034720982] Celestine Huang, DO 08-15-2020 Acute pancreatitis [SNOMED-CT: 487367500] Dr. Colleen Huang, DO 08-14-2020 Type II diabetes mellitus poorly control led [SNOMED-CT: 962458032] Dr. Colleen Huang, DO 08-14-2020 Other hyperlipidemia [ICD10: E78.49] Dr. Colleen Huang, DO 08-14-2020 Balanitis [SNOMED-CT: 62970262] Dr. Colleen Huang, DO 05-30-2020 Type II diabetes mellitus poorly control led [SNOMED-CT: 595494209] Dr. Colleen Huang, DO 05-30-2020 Type II diabetes mellitus poorly control led [SNOMED-CT: 771928131] Dr. Colleen Huang, DO 03-22-2020 Other hyperlipidemia [ICD10: E78.49] Dr. Colleen Huang, DO 03-22-2020 DIABETES MELLITUS WITHOUT MENTION OF COM PLICATION [SNOMED-CT: 500766056] N/A N/A 03-15-2020 Acute rhinosinusitis [SNOMED-CT: 356294165] Dr. Colleen Huang, DO 09-08-2019 Upper respiratory infection [SNOMED-CT: 00040504] Dr. Colleen Huang, DO 09-08-2019 DIABETES WITH RENAL MANIFESTATIONS TYPE II OR UNSPECIFIED TYPE NOT STATED UNCONTROLLED [SNOMED-CT: 512796062] Dr. Colleen Huang, DO 08-13-2019 UNSPECIFIED ESSENTIAL HYPERTENSION [SNOMED-CT: 5478541 0] N/A N/A 08-13-2019 ANXIETY STATE UNSPECIFIED [SNOMED-CT: 885331831] Celestine Huang, DO 08-13-2019 CHRONIC KIDNEY DISEASE STAGE II (MILD) [SNOMED-CT: 431 875362] Dr. Colleen Huang, DO 08-13-2019 Other specified vaccination [ICD10: Z23] Celestine Huang, DO 08-13-2019 Pain in left foot [SNOMED-CT: 354752691416542] Dr. Colleen Huang, DO 06-18-2019 DIABETES MELLITUS WITHOUT MENTION OF COM PLICATION [SNOMED-CT: 195041127] Celestine Huang, DO 06-18-2019 DIABETES WITH RENAL MANIFESTATIONS TYPE II OR UNSPECIFIED TYPE NOT STATED UNCONTROLLED [SNOMED-CT: 990284440] Dr. Colleen Huang, DO 03-24-2019 Contusion of lower back and pelvis, init ial encounter [ICD10: S30.0XXA] Dr. Colleen Huang, DO 12-14-2018 DIABETES WITH RENAL MANIFESTATIONS TYPE II OR UNSPECIFIED TYPE NOT STATED UNCONTROLLED [SNOMED-CT: 841005748] Dr. Colleen Huang, DO 12-14-2018 DIABETES MELLITUS WITHOUT MENTION OF COM PLICATION [SNOMED-CT: 003908812] N/A N/A 09-07-2018 DIABETES WITH RENAL MANIFESTATIONS TYPE II OR UNSPECIFIED TYPE NOT STATED UNCONTROLLED [SNOMED-CT: 215708238] Dr. Colleen Huang, DO 07-20-2018 Other hyperlipidemia [ICD10: E78.49] Dr. Colleen Huang, DO 07-20-2018 Back pain [SNOMED-CT: 410828487] Dr. Colleen Huang, DO 06-03-2018 DIABETES WITH RENAL MANIFESTATIONS TYPE II OR UNSPECIFIED TYPE NOT STATED UNCONTROLLED [SNOMED-CT: 824397115] Dr. Colleen Huang, DO 06-03-2018 Arthropathy of left shoulder [SNOMED-CT: 2977499451120 9103] Dr. Colleen Huang, DO 06-03-2018 DIABETES WITH RENAL MANIFESTATIONS TYPE II OR UNSPECIFIED TYPE NOT STATED UNCONTROLLED [SNOMED-CT: 554567982] Dr. Colleen Huang, DO 03-27-2018 Viral gastroenteritis [SNOMED-CT: 945201231] Dr. Colleen Huang, DO 12-26-2017 DIABETES WITH RENAL MANIFESTATIONS TYPE II OR UNSPECIFIED TYPE NOT STATED UNCONTROLLED [SNOMED-CT: 976533705] Dr. Colleen Huang, DO 12-26-2017 Cat bite [SNOMED-CT: 140953971] Dr. Colleen Huang, DO 12-26-2017 DIABETES WITH RENAL MANIFESTATIONS TYPE II OR UNSPECIFIED TYPE NOT STATED UNCONTROLLED [SNOMED-CT: 733519501] Dr. Colleen Huang, DO 09-24-2017 DIABETES MELLITUS WITHOUT MENTION OF COM PLICATION [SNOMED-CT: 013555939] Celestine Huang, DO 09-24-2017 ROUTINE GENERAL MEDICAL EXAMINATION AT A HEALTH CARE FACILITY [SNOMED-CT: 723505148] Celestine Huang, DO 06-02-2017 DIABETES WITH RENAL MANIFESTATIONS TYPE II OR UNSPECIFIED TYPE NOT STATED UNCONTROLLED [SNOMED-CT: 302796263] Dr. Colleen Huang, DO 10-02-2017 Allergic contact dermatitis of male melissa isamar [SNOMED-CT: 363000023] Dr. Colleen Huang, DO 03-07-2017 Other genital problems [ICD10: R68.89] Dr. Colleen Huang, DO 03-07-2017 DIABETES WITH RENAL MANIFESTATIONS TYPE II OR UNSPECIFIED TYPE NOT STATED UNCONTROLLED [SNOMED-CT: 771578494] Dr. Colleen Huang, DO 03-07-2017 Back pain [SNOMED-CT: 175513891] Dr. Colleen Huang, DO 03-07-2017 LUMBAGO [SNOMED-CT: 607050919] Jose Angelberny Huang, DO 03-07-2017 Penile cellulitis/abscess/boil [SNOMED-CT: 446210780] Dr. Colleen Huang, DO 01-15-2017 DIABETES WITH RENAL MANIFESTATIONS TYPE II OR UNSPECIFIED TYPE NOT STATED UNCONTROLLED [SNOMED-CT: 400754592] Dr. Colleen Huang, DO 01-15-2017 Back pain [SNOMED-CT: 853613277] Dr. Colleen Huang, DO 11-06-2016 DIABETES WITH RENAL MANIFESTATIONS TYPE II OR UNSPECIFIED TYPE NOT STATED UNCONTROLLED [SNOMED-CT: 631857085] Dr. Colleen Huang, DO 11-06-2016 UNSPECIFIED ESSENTIAL HYPERTENSION [SNOMED-CT: 2483851 0] N/A N/A 11-06-2016 Bronchospasm [SNOMED-CT: 8749430] Dr Joe Huang, DO 09-04-2016 Back pain [SNOMED-CT: 671278981] Dr. Colleen Huang, DO 09-04-2016 Primary atypical interstitial pneumonia [SNOMED-CT: 35 159783] Dr. Colleen Huang, DO 09-04-2016 Back pain [SNOMED-CT: 152107750] Dr. Colleen Huang, DO 07-10-2016 DIABETES WITH RENAL MANIFESTATIONS TYPE II OR UNSPECIFIED TYPE NOT STATED UNCONTROLLED [SNOMED-CT: 356341564] Dr. Colleen Huang, DO 07-10-2016 Back pain [SNOMED-CT: 339215185] Dr. Colleen Huang, DO 05-15-2016 CHRONIC KIDNEY DISEASE STAGE II (MILD) [SNOMED-CT: 431 606763] Dr. Colleen Huang, DO 05-15-2016 DIABETES WITH RENAL MANIFESTATIONS TYPE II OR UNSPECIFIED TYPE NOT STATED UNCONTROLLED [SNOMED-CT: 504165273] Dr. Colleen Huang, DO 05-15-2016 LUMBAGO [SNOMED-CT: 127677672] Jose Angel unger Reina Huang, DO 05-15-2016 Other specified vaccination [ICD10: Z23] Celestine Huang, DO 05-15-2016 Back pain [SNOMED-CT: 042181198] Dr. Colleen Huang, DO 03-18-2016 DIABETES WITH RENAL MANIFESTATIONS TYPE II OR UNSPECIFIED TYPE NOT STATED UNCONTROLLED [SNOMED-CT: 604429166] Dr. Colleen Huang, DO 03-18-2016 DIABETES WITH RENAL MANIFESTATIONS TYPE II OR UNSPECIFIED TYPE NOT STATED UNCONTROLLED [SNOMED-CT: 134696272] Dr. Colleen Huang, DO 01-22-2016 Exogenous hyperlipidemia [SNOMED-CT: 955513923] Dr. Colleen Huang, DO 01-22-2016 ANXIETY STATE UNSPECIFIED [SNOMED-CT: 060356832] Celestine Huang, DO 01-22-2016 DIABETES WITH RENAL MANIFESTATIONS TYPE II OR UNSPECIFIED TYPE NOT STATED UNCONTROLLED [SNOMED-CT: 296107207] Dr. Colleen Huang, DO 12-15-2015 Otitis externa [SNOMED-CT: 2278534] Celestine Huang, DO 12-15-2015 Impacted cerumen [SNOMED-CT: 20649558] Celestine Huang, DO 12-15-2015 DIABETES WITH RENAL MANIFESTATIONS TYPE II OR UNSPECIFIED TYPE NOT STATED UNCONTROLLED [SNOMED-CT: 625480060] Dr. Colleen Huang, DO 11-17-2015 Back pain [SNOMED-CT: 233385023] Dr. Colleen Huang, DO 11-17-2015 UNSPECIFIED SLEEP APNEA [SNOMED-CT: 12093811] Celestine Huang, DO 11-17-2015 UNSPECIFIED ESSENTIAL HYPERTENSION [SNOMED-CT: 1045850 0] N/A N/A 11-17-2015 ROUTINE GENERAL MEDICAL EXAMINATION AT A HEALTH CARE FACILITY [SNOMED-CT: 204269673] Celestine Huang, DO 09-27-2015 Back pain [SNOMED-CT: 083189938] Dr. Colleen Huang, DO 08-11-2015 Dysuria-frequency syndrome [SNOMED-CT: 2412366] Dr. Colleen Huang, DO 08-11-2015 LUMBAGO [SNOMED-CT: 126874682] Jose Angel cornel Huang, DO 06-19-2015 CLOSED FRACTURE OF LUMBAR VERTEBRA WITHO UT SPINAL [SNOMED-CT: 36948689] Celestine Huang, DO 06-19-2015 DIABETES WITH RENAL MANIFESTATIONS TYPE II OR UNSPECIFIED TYPE NOT STATED UNCONTROLLED [SNOMED-CT: 753946390] Dr. Colleen Huang, DO 06-19-2015 DIABETES WITH RENAL MANIFESTATIONS TYPE II OR UNSPECIFIED TYPE NOT STATED UNCONTROLLED [SNOMED-CT: 692286111] Dr. Colleen Huang, DO 04-26-2015 Back pain [SNOMED-CT: 834740439] Dr. Colleen Huang, DO 04-26-2015 Other constipation [ICD9: 564.09] Dr Joe Huang, DO 01-18-2015 Back pain [SNOMED-CT: 526857448] Dr. Colleen Huang, DO 01-18-2015 DIABETES WITH RENAL MANIFESTATIONS TYPE II OR UNSPECIFIED TYPE NOT STATED UNCONTROLLED [SNOMED-CT: 076006558] Dr. Colleen Huang, DO 11-30-2014 CHRONIC KIDNEY DISEASE STAGE II (MILD) [SNOMED-CT: 431 476243] Dr. Colleen Huang, DO 11-30-2014 UNSPECIFIED ESSENTIAL HYPERTENSION [SNOMED-CT: 7811564 0] N/A N/A 11-30-2014 DIABETES WITH RENAL MANIFESTATIONS TYPE II OR UNSPECIFIED TYPE NOT STATED UNCONTROLLED [SNOMED-CT: 766309137] Dr. Colleen Huang, DO 10-19-2014 CHRONIC KIDNEY DISEASE STAGE II (MILD) [SNOMED-CT: 431 905311] Dr. Colleen Huang, DO 10-19-2014 DIABETES WITH RENAL MANIFESTATIONS TYPE II OR UNSPECIFIED TYPE NOT STATED UNCONTROLLED [SNOMED-CT: 713554791] Dr. Colleen Huang, DO 09-16-2014 DIABETES WITH RENAL MANIFESTATIONS TYPE II OR UNSPECIFIED TYPE NOT STATED UNCONTROLLED [SNOMED-CT: 711265672] Dr. Colleen Huang, DO 09-14-2014 CHRONIC KIDNEY DISEASE STAGE II (MILD) [SNOMED-CT: 431 100997] Dr. Colleen Huang, DO 09-14-2014 ROUTINE GENERAL MEDICAL EXAMINATION AT A HEALTH CARE FACILITY [SNOMED-CT: 746341130] Celestine Huang, DO 08-22-2014 Other specified vaccination [ICD10: Z23] Celestine Huang, DO 08-22-2014 DIABETES MELLITUS WITHOUT MENTION OF COM PLICATION [SNOMED-CT: 906446035] N/A N/A 05-09-2014 DIABETES MELLITUS WITHOUT MENTION OF COM PLICATION [SNOMED-CT: 533310557] Celestine Huang, DO 03-16-2014 Back pain [SNOMED-CT: 538985479] Dr. Colleen Huang, DO 03-16-2014 CONTACT DERMATITIS AND OTHER ECZEMA UNSP ECIFIED CA [SNOMED-CT: 359589343] N/A N/A 03-16-2014 UNSPECIFIED ESSENTIAL HYPERTENSION [SNOMED-CT: 3531765 0] N/A N/A 03-16-2014 DIABETES MELLITUS WITHOUT MENTION OF COM PLICATION [SNOMED-CT: 928121032] Celestine Huang, DO 11-05-2013 Back pain [SNOMED-CT: 863254833] Dr. Colleen Huang, DO 11-05-2013 CLOSED FRACTURE OF LUMBAR VERTEBRA WITHO UT SPINAL [SNOMED-CT: 53537737] Celestine Huang, DO 11-05-2013 ANXIETY STATE UNSPECIFIED [SNOMED-CT: 560413501] Celestine Huang, DO 11-05-2013 DIABETES MELLITUS WITHOUT MENTION OF COM PLICATION [SNOMED-CT: 745869555] Celestine Huang, DO 06-11-2013 UNSPECIFIED ESSENTIAL HYPERTENSION [SNOMED-CT: 0385159 0] N/A N/A 06-11-2013 INSOMNIA UNSPECIFIED [SNOMED-CT: 207038036] Dr. Colleen Huang, DO 06-09-2013 ANXIETY STATE UNSPECIFIED [SNOMED-CT: 455096163] Celestine Huang, DO 06-09-2013 DIABETES MELLITUS WITHOUT MENTION OF COM PLICATION [SNOMED-CT: 104088038] Celestine Huang, DO 02-17-2013 HYPERPLASIA OF PROSTATE UNSPECIFIED WITH OUT URINAR [SNOMED-CT: 270878567] Celestine Huang, DO 02-17-2013 CLOSED FRACTURE OF LUMBAR VERTEBRA WITHO UT SPINAL [SNOMED-CT: 18124262] Celestine Huang, DO 02-17-2013 UNSPECIFIED ESSENTIAL HYPERTENSION [SNOMED-CT: 0509234 0] N/A N/A 02-17-2013 ROUTINE GENERAL MEDICAL EXAMINATION AT A HEALTH CARE FACILITY [SNOMED-CT: 041919553] Celestine Huang, DO 11-02-2012 DIABETES MELLITUS WITHOUT MENTION OF COM PLICATION [SNOMED-CT: 965537316] Celestine Huang, DO 08-28-2012 LUMBAGO [SNOMED-CT: 276250786] Jose Angel unger Reina Huang, DO 08-05-2012 DIABETES MELLITUS WITHOUT MENTION OF COM PLICATION [SNOMED-CT: 939105927] Celestine Huang, DO 08-05-2012 UNSPECIFIED ESSENTIAL HYPERTENSION [SNOMED-CT: 8968632 0] N/A N/A 08-05-2012 DIABETES MELLITUS WITHOUT MENTION OF COM PLICATION [SNOMED-CT: 436141943] Celestine Huang, DO 02-26-2012 LUMBAGO [SNOMED-CT: 829096194] Jose Angel Cornejo Reina, DO 02-26-2012 UNSPECIFIED ESSENTIAL HYPERTENSION [SNOMED-CT: 6128552 0] N/A N/A 02-26-2012 DIABETES MELLITUS WITHOUT MENTION OF COM PLICATION [SNOMED-CT: 106525701] Celestine Huang, DO 10-23-2011 LUMBAGO [SNOMED-CT: 117115560] Jose Angel Cornejo [place], DO 10-23-2011 PAIN IN JOINT INVOLVING SHOULDER REGION [SNOMED-CT: 838037194] Celestine Huang, DO 08-21-2011 DIABETES MELLITUS WITHOUT MENTION OF COM PLICATION [SNOMED-CT: 232388460] Celestine Huang, DO 08-21-2011 HYPERPLASIA OF PROSTATE UNSPECIFIED WITH OUT URINAR [SNOMED-CT: 480152955] Celestine Huang, DO 08-21-2011 UNSPECIFIED ESSENTIAL HYPERTENSION [SNOMED-CT: 1109494 0] N/A N/A 08-21-2011 Other specified vaccination [ICD10: Z23] Celestine Huang, DO 08-21-2011 PAIN IN JOINT INVOLVING SHOULDER REGION [SNOMED-CT: 319561636] Celestine Huang, DO 06-19-2011 DIABETES MELLITUS WITHOUT MENTION OF COM PLICATION [SNOMED-CT: 735727397] Celestine Huang, DO 06-19-2011 HYPERPLASIA OF PROSTATE UNSPECIFIED WITH OUT URINAR [SNOMED-CT: 212938030] Celestine Huang, DO 06-19-2011 UNSPECIFIED ESSENTIAL HYPERTENSION [SNOMED-CT: 9229861 0] N/A N/A 06-19-2011 Other specified vaccination [ICD10: Z23] Celestine Huang, DO 06-19-2011 PAIN IN JOINT INVOLVING SHOULDER REGION [SNOMED-CT: 001734360] Celestine Huang, DO 03-08-2011 DIABETES MELLITUS WITHOUT MENTION OF COM PLICATION [SNOMED-CT: 288909024] Celestine Huang, DO 03-08-2011 HYPERPLASIA OF PROSTATE UNSPECIFIED WITH OUT URINAR [SNOMED-CT: 227045534] Celestine Huang, DO 03-08-2011 UNSPECIFIED ESSENTIAL HYPERTENSION [SNOMED-CT: 0130633 0] N/A N/A 03-08-2011 PAIN IN JOINT INVOLVING SHOULDER REGION [SNOMED-CT: 688964835] Celestine Huang, DO 12-26-2010 DIABETES MELLITUS WITHOUT MENTION OF COM PLICATION [SNOMED-CT: 578196879] Celestine Huang, DO 12-26-2010 HYPERPLASIA OF PROSTATE UNSPECIFIED WITH OUT URINAR [SNOMED-CT: 479317422] Celestine Huang, DO 12-26-2010 UNSPECIFIED ESSENTIAL HYPERTENSION [SNOMED-CT: 0737422 0] N/A N/A 12-26-2010 Back pain [SNOMED-CT: 672975648] Dr. Colleen Huang, DO 12-14-2010 CLOSED FRACTURE OF LUMBAR VERTEBRA WITHO UT SPINAL [SNOMED-CT: 47343878] Celestine Huang, DO 12-14-2010 DIABETES MELLITUS WITHOUT MENTION OF COM PLICATION [SNOMED-CT: 216705797] Celestine Huang, DO 09-24-2010 CLOSED FRACTURE OF LUMBAR VERTEBRA WITHO UT SPINAL [SNOMED-CT: 23191087] Celestine Huang, DO 09-24-2010 UNSPECIFIED ESSENTIAL HYPERTENSION [SNOMED-CT: 6724057 0] N/A N/A 09-24-2010 DIABETES MELLITUS WITHOUT MENTION OF COM PLICATION [SNOMED-CT: 813436863] Celestine Huang, DO 08-29-2010 CLOSED FRACTURE OF LUMBAR VERTEBRA WITHO UT SPINAL [SNOMED-CT: 93654844] Celestine Huang, DO 08-29-2010 UNSPECIFIED ESSENTIAL HYPERTENSION [SNOMED-CT: 3716775 0] N/A N/A 08-29-2010 DIABETES MELLITUS WITHOUT MENTION OF COM PLICATION [SNOMED-CT: 971751551] Celestine Huang, DO 06-27-2010 CLOSED FRACTURE OF LUMBAR VERTEBRA WITHO UT SPINAL [SNOMED-CT: 70706191] Celestine Huang, DO 06-27-2010 UNSPECIFIED ESSENTIAL HYPERTENSION [SNOMED-CT: 7405739 0] N/A N/A 06-27-2010 CLOSED FRACTURE OF LUMBAR VERTEBRA WITHO UT SPINAL [SNOMED-CT: 59896676] Celestine Huang, DO 06-13-2010 DIABETES MELLITUS WITHOUT MENTION OF COM PLICATION [SNOMED-CT: 050059055] Celestine Huang, DO 03-23-2010 IMPOTENCE OF ORGANIC ORIGIN [SNOMED-CT: 446093160] N/A N/A 03-23-2010 UNSPECIFIED ESSENTIAL HYPERTENSION [SNOMED-CT: 7932269 0] N/A N/A 03-23-2010 UNSPECIFIED CATARACT [SNOMED-CT: 006878857] Celestine Huang, DO 01-26-2010 DIABETES MELLITUS WITHOUT MENTION OF COM PLICATION [SNOMED-CT: 133968421] Celestine Huang, DO 01-26-2010 UNSPECIFIED SLEEP APNEA [SNOMED-CT: 78803548] Celestine Huang, DO 01-26-2010 UNSPECIFIED ESSENTIAL HYPERTENSION [SNOMED-CT: 9484467 0] N/A N/A 01-26-2010 UNSPECIFIED DISORDER OF SKIN AND SUBCUTA NEOUS TISS [SNOMED-CT: 65508898] Celestine Huang, DO 01-26-2010 IMPOTENCE OF ORGANIC ORIGIN [SNOMED-CT: 190410708] N/A N/A 01-26-2010 DIABETES MELLITUS WITHOUT MENTION OF COM PLICATION [SNOMED-CT: 859896324] Celestine Huang, DO 12-20-2009 UNSPECIFIED ESSENTIAL HYPERTENSION [SNOMED-CT: 7602590 0] N/A N/A 12-20-2009 HYPERPLASIA OF PROSTATE UNSPECIFIED WITH OUT URINAR [SNOMED-CT: 654025941] Celestine Huang, DO 12-20-2009 UNSPECIFIED DISORDER OF SKIN AND SUBCUTA NEOUS TISS [SNOMED-CT: 72221764] Celestine Huang, DO 12-20-2009 IMPOTENCE OF ORGANIC ORIGIN [SNOMED-CT: 377818920] N/A N/A 12-20-2009 DIABETES MELLITUS WITHOUT MENTION OF COM PLICATION [SNOMED-CT: 089690616] N/A N/A 09-18-2009 UNSPECIFIED ESSENTIAL HYPERTENSION [SNOMED-CT: 8798303 0] N/A N/A 09-18-2009 IMPOTENCE OF ORGANIC ORIGIN [SNOMED-CT: 757202975] N/A N/A 09-18-2009 DIABETES MELLITUS WITHOUT MENTION OF COM PLICATION [SNOMED-CT: 462938806] N/A N/A 06-28-2009 DIABETES MELLITUS WITHOUT MENTION OF COM PLICATION [SNOMED-CT: 951416054] N/A N/A 06-16-2009 UNSPECIFIED ESSENTIAL HYPERTENSION [SNOMED-CT: 2405017 0] N/A N/A 06-16-2009 CONTACT DERMATITIS AND OTHER ECZEMA UNSP ECIFIED CA [SNOMED-CT: 206840378] N/A N/A 06-16-2009 ALLERGIES AND ADVERSE REACTIONS [...] Active atorvastatin 10 mg oral tablet, [RxNorm: 167498] atorvastatin one po hs daily 0 08/14/2020 Active metFORMIN 500 mg oral tablet, [RxNorm: 285088] metFORMIN one po bid 08/14/2020 Active HumaLOG 100 units/mL injectable solution, [RxNorm: 865 098] insulin lispro 6 units this am for sugar of 220....he h as a sliding scale 0 08/14/2020 Active Lotrisone 1%-0.05% topical cream, [RxNorm: 494423] clotrimazole-betamethasone dipropionate topic use as directed apply to genital area bid 30 05/30/2020 Active sertraline 100 mg oral tablet, [RxNorm: 313195] sertraline one po daily 0 9 Active lisinopril 10 mg oral tablet, [RxNorm: 269871] lisinopril one po daily 90 08/13/20 19 Active Linzess 145 mcg oral capsule, [RxNorm: 3750197] linaclotide one po daily prn constipation 90 08/13/2019 Active BD Pen Needle Mini U/F Unknown use as directed for lantus injection 200 2018 Active Lantus Solostar Pen 100 units/mL subcuta neous solution, [RxNorm: 011035] insulin glargine 30 units qpm 0 12/18/2018 Active ProAir HFA 90 mcg/inh inhalation aerosol, [RxNorm: 745 752] albuterol two puffs qid prn wheeze 0 06/02/2017 Active Cortisporin-TC otic suspension, [RxNorm: 477062] colistin/neomycin/thonzonium/HC otic 4 gtts into left EAC bid 5 12/15/2015 Active aspirin 81 mg oral tablet, [RxNorm: 424479] aspirin one daily 1 11/17/2015 Active INSURANCE PROVIDERS Payer Name Policy Type P olicy ID Covered Alliance Party ID Policy [employer] Health Insurance [id number] ESTRELLA CABALLERO [facility] 20 [id number] THIAGO MENDOZA ASSESSMENTS # Cholelithiasis AND cholecystitis with obstruction (K80.19): # Emotional stress (Z73.3): # Heart murmur (R01.1): PROBLEMS Problem Problem Status D ate Started Date Resolved Date Inactivated CLOSED FRACTURE OF LUMBAR VERTEBRA WITHO UT SPINAL [SNOMED-CT: 58380535] Active 06-13-2010 NA NA Type II diabetes mellitus poorly control led [SNOMED-CT: 249965814] Active 03-22-2020 NA NA Allergic contact dermatitis of male melissa isamar [SNOMED-CT: 107875955] Active 03-07-2017 NA NA Other genital problems [ICD10: R68.89] Active 03-07-2017 NA NA ROUTINE GENERAL MEDICAL EXAMINATION AT A HEALTH CARE FACILITY [SNOMED-CT: 648227497] Active 11-02-2012 NA NA Other specified vaccination [ICD10: Z23] Active 05-15-2016 NA NA DIABETES MELLITUS WITHOUT MENTION OF COM PLICATION [SNOMED-CT: 509253699] Active 12-20-2009 NA NA HYPERPLASIA OF PROSTATE UNSPECIFIED WITH OUT URINAR [SNOMED-CT: 413356290] Active 12-20-2009 NA NA UNSPECIFIED DISORDER OF SKIN AND SUBCUTA NEOUS TISS [SNOMED-CT: 29888649] Active 12-20-2009 NA NA Balanitis [SNOMED-CT: 68444239] Active 05-30-2020 NA NA Bronchospasm [SNOMED-CT: 3903528] Active 09-04-2016 NA NA Generalised itching [SNOMED-CT: 234195702] Active 08-15-2020 NA NA Other hyperlipidemia [ICD10: E78.49] Activ e 07-20-2018 NA NA Penile cellulitis/abscess/boil [SNOMED-CT: 277320336] Active 01-15-2017 NA NA Other constipation [ICD9: 564.09] Active 01-18-2015 NA NA UNSPECIFIED CATARACT [SNOMED-CT: 139630511] Active 01-26-2010 NA NA UNSPECIFIED SLEEP APNEA [SNOMED-CT: 22418941] Active 01-26-2010 NA NA Chronic kidney disease [SNOMED-CT: 626251243] Active 08-23-2020 NA NA Unspecified injury of right shoulder and upper arm [ICD10: S49.91XA] Active 09-26-2020 NA NA Acute pancreatitis [SNOMED-CT: 276329786] Active 08-14-2020 NA NA Contusion of lower back and pelvis, init ial encounter [ICD10: S30.0XXA] Active 12-14-2018 NA NA Exogenous hyperlipidemia [SNOMED-CT: 850057184] Active 09-27-2015 NA NA Otitis externa [SNOMED-CT: 9906730] Active 12-15-2015 NA NA Impacted cerumen [SNOMED-CT: 93058931] Active 12-15-2015 NA NA INSOMNIA UNSPECIFIED [SNOMED-CT: 036485741] Active 06-09-2013 NA NA ANXIETY STATE UNSPECIFIED [SNOMED-CT: 331150648] Active 06-09-2013 NA NA NEED FOR PROPHYLACTIC VACCINATION AND IN OCULATION AGAINST INFLUENZA [SNOMED-CT: 962239839] Active 06-19-2011 NA NA Primary atypical interstitial pneumonia [SNOMED-CT: 35 122268] Active 09-04-2016 NA NA Viral gastroenteritis [SNOMED-CT: 762481424] Active 12-26-2017 NA NA Cat bite - wound [SNOMED-CT: 652995745] Active 12-26-2017 NA NA Cat bite [SNOMED-CT: 218687826] Active 12-26-2017 NA NA Cat bite [SNOMED-CT: 011582256] Active 12-26-2017 NA NA Emotional stress [SNOMED-CT: 678420613] Active 08-30-2020 NA NA Nausea and vomiting [SNOMED-CT: 99163268] Active 09-15-2020 NA NA Heart murmur [SNOMED-CT: 50414221] Active 10-04-2020 NA NA BACKACHE UNSPECIFIED [SNOMED-CT: 945141826] Active 12-14-2010 NA NA PAIN IN JOINT INVOLVING SHOULDER REGION [SNOMED-CT: 260390652] Active 12-26-2010 NA NA Cholelithiasis AND cholecystitis with ob struction [SNOMED-CT: 76373174] Active 10-02-2020 NA NA H/O: Rodriguez's palsy [SNOMED-CT: 710795952] Active 10-02-2020 NA NA Pancreatitis [SNOMED-CT: 90125447] Active 10-02-2020 NA NA Heart murmur, undetermined whether funct ional or organic [SNOMED-CT: 919584983] Active 10-02-2020 NA NA DIABETES MELLITUS WITHOUT MENTION OF COM PLICATION [SNOMED-CT: 544830602] Active 05-19-2009 NA NA UNSPECIFIED ESSENTIAL HYPERTENSION [SNOMED-CT: 1775671 0] Active 05-19-2009 NA NA CONTACT DERMATITIS AND OTHER ECZEMA UNSP ECIFIED CA [SNOMED-CT: 344878426] Active 05-19-2009 NA NA Acute rhinosinusitis [SNOMED-CT: 466015917] Active 09-08-2019 NA NA Upper respiratory infection [SNOMED-CT: 81336188] Active 09-08-2019 NA NA LUMBAGO [SNOMED-CT: 720527229] Active 10-23-2011 NA NA SPRAIN OF UNSPECIFIED SITE OF SHOULDER A ND UPPER A [SNOMED-CT: 094101242] Active 06-28-2009 NA NA Back pain [SNOMED-CT: 828641868] Active 08-11-2015 NA NA Dysuria-frequency syndrome [SNOMED-CT: 2575307] Active 08-11-2015 NA NA Thyroiditis [SNOMED-CT: 41081147] Active 08-23-2020 NA NA Arthropathy of left shoulder [SNOMED-CT: 2963239416907 9103] Active 06-03-2018 NA NA Pain in left foot [SNOMED-CT: 170724616086229] Active 06-18-2019 NA NA DIABETES WITH RENAL MANIFESTATIONS TYPE II OR UNSPECIFIED TYPE NOT STATED UNCONTROLLED [SNOMED-CT: 885751957] Active 09-14-2014 NA NA CHRONIC KIDNEY DISEASE STAGE II (MILD) [SNOMED-CT: 431 679087] Active 09-14-2014 NA NA IMPOTENCE OF ORGANIC ORIGIN [SNOMED-CT: 594018939] Active 09-18-2009 NA NA PROCEDURES Procedure Date CPT Code Procedure 10/04/2020 14:27:34 [id number] Telephone evaluation and management service by a physician or other qualified health health care administrator who may report evaluation and management services provided to an established patient, parent, or guardian not originating from a related E/M service provided within the previous 7 days nor leading to an E/M service or procedure within the next 24 hours or soonest available appointment; 11-20 minutes of medical discussion 09/27/2020 13:05:10 [id number] Telephone evaluation and management service by a physician or other qualified health health care administrator who may report evaluation and management services provided to an established patient, parent, or guardian not originating from a related E/M service provided within the previous 7 days nor leading to an E/M service or procedure within the next 24 hours or soonest available appointment; 5-10 minutes of medical discussion 09/26/2020 10:41:47 10343 Telephone evaluation and management service by a physician or other qualified health health care administrator who may report evaluation and management services provided to an established patient, parent, or guardian not originating from a related E/M service provided within the previous 7 days nor leading to an E/M service or procedure within the next 24 hours or soonest available appointment; 11-20 minutes of medical discussion 09/15/2020 12:51:28 91120 Telephone evaluation and management service by a physician or other qualified health health care administrator who may report evaluation and management services provided to an established patient, parent, or guardian not originating from a related E/M service provided within the previous 7 days nor leading to an E/M service or procedure within the next 24 hours or soonest available appointment; 5-10 minutes of medical discussion 08/30/2020 08:24:51 74571 Telephone evaluation and management service by a physician or other qualified health health care administrator who may report evaluation and management services provided to an established patient, parent, or guardian not originating from a related E/M service provided within the previous 7 days nor leading to an E/M service or procedure within the next 24 hours or soonest available appointment; 5-10 minutes of medical discussion 08/23/2020 09:37:34 86355 Telephone evaluation and management service by a physician or other qualified health health care administrator who may report evaluation and management services provided to an established patient, parent, or guardian not originating from a related E/M service provided within the previous 7 days nor leading to an E/M service or procedure within the next 24 hours or soonest available appointment; 5-10 minutes of medical discussion 08/15/2020 08:57:07 18923 Office or other outpatient visit for the [...] moderate severity. Physicians typically spend 15 minutes pqhj-ji-qbwn with the patient and/or family. 08/14/2020 09:42:50 81446 Transitional Care Management Services with the following required elements: Communication (direct contact, telephone, electronic) with the patient and/or caregiver within 2 business days of discharge Medical decision making of high complexity during the service period Nfbs-kt-vkyj visit, within 7 calendar days of discharge 08/14/2020 09:42:50 [id number] Eligible clinician attests to documenting in the medical record they obtained, updated, or reviewed the patient's current medications 05/30/2020 13:09:49 89629 Office or other outpatient visit for the [...] moderate severity. Physicians typically spend 15 minutes iwvf-df-dfyp with the patient and/or family. 03/22/2020 09:10:00 22014 Office or other outpatient visit for the [...] moderate severity. Physicians typically spend 15 minutes hetx-dz-prza with the patient and/or family. 03/15/2020 12:24:05 42466 Office or other outpatient visit for the evaluation and management of an established patient, that may not require the presence of a physician. Usually, the presenting problem(s) are minimal. Typically, 5 minutes are spent performing or supervising these services. 03/15/2020 12:24:05 22597 Hemoglobin; glycosylated (A1C) by device cleared by FDA for home use 03/15/2020 12:24:05 3046F Most recent hemoglobin A1c level greater than 9.0% (DM) 09/08/2019 08:19:29 49899 Office or other outpatient visit for the [...] high severity. Physicians typically spend 25 minutes ebao-pk-cuoi with the patient and/or family. 09/08/2019 08:19:29 35998 Hemoglobin; glycosylated (A1C) by device cleared by FDA for home use 09/08/2019 08:19:29 3045F Most recent hemoglobin A1c (HbA1c) level 7.0-9.0% (DM) 08/13/2019 13:55:58 G0439 ANNUAL WELLNESS VISIT, SUBSEQUENT 08/13/2019 13:55:58 71122 Hemoglobin; glycosylated (A1C) by device cleared by FDA for home use 08/13/2019 13:55:58 51406 Influenza virus vaccine, quadrivalent (ccIIV4), derived from cell cultures, subunit, preservative and antibiotic free, 0.5 mL dosage, for intramuscular use 08/13/2019 13:55:58 G0008 ADMINISTRATION OF FLU VACCINE (V04.81) 08/13/2019 13:55:58 2021F Dilated retinal eye exam with interpretation by an golf sales manager or customs compliance manager documented and reviewed (DM) 08/13/2019 13:55:58 G8427 Eligible clinician attests to documenting in the medical record they obtained, updated, or reviewed the patient's current medications 08/13/2019 13:55:58 3017F Colorectal cancer screening results documented and reviewed (PV) 08/13/2019 13:55:58 1036F Current tobacco non-user (CAD, CAP, COPD, PV) (DM) (IBD) 06/18/2019 09:23:34 85031 Office or other outpatient visit for the [...] high severity. Physicians typically spend 25 minutes nivl-pb-qnby with the patient and/or family. 06/18/2019 09:23:34 49026 Hemoglobin; glycosylated (A1C) by device cleared by FDA for home use 06/18/2019 09:23:34 3045F Most recent hemoglobin A1c (HbA1c) level 7.0-9.0% (DM) 03/24/2019 08:14:04 47342 Office or other outpatient visit for the [...] high severity. Physicians typically spend 25 minutes ikdx-wv-ahqn with the patient and/or family. 03/24/2019 08:14:04 37092 Hemoglobin; glycosylated (A1C) by device cleared by FDA for home use 03/24/2019 08:14:04 3045F Most recent hemoglobin A1c (HbA1c) level 7.0-9.0% (DM) 03/24/2019 08:14:04 G8427 Eligible clinician attests to documenting in the medical record they obtained, updated, or reviewed the patient's current medications 03/23/2019 11:45:37 3017F Colorectal cancer screening results documented and reviewed (PV) 12/14/2018 08:01:40 45136 Office or other outpatient visit for the [...] high severity. Physicians typically spend 25 minutes atfl-rv-bliz with the patient and/or family. 12/14/2018 08:01:40 73265 Collection of venous blood by venipuncture 12/14/2018 08:01:40 30363 Hemoglobin; glycosylated (A1C) by device cleared by FDA for home use 12/14/2018 08:01:40 3046F Most recent hemoglobin A1c level greater than 9.0% (DM) 12/14/2018 08:01:40 G8427 Eligible clinician attests to documenting in the medical record they obtained, updated, or reviewed the patient's current medications 09/07/2018 08:17:34 21326 Office or other outpatient visit for the evaluation and management of an established patient, that may not require the presence of a physician. Usually, the presenting problem(s) are minimal. Typically, 5 minutes are spent performing or supervising these services. 09/07/2018 08:17:34 00276 Hemoglobin; glycosylated (A1C) by device cleared by FDA for home use 09/07/2018 08:17:34 3044F Most recent hemoglobin A1c (HbA1c) level less than 7.0% (DM) 07/20/2018 13:54:05 64508 Periodic comprehensive preventive medicine reevaluation and management of an individual including an age and gender appropriate history, examination, counseling/anticipatory guidance/risk factor reduction interventions, and the ordering of laboratory/diagnostic procedures, established patient; 65 years and older 07/20/2018 13:54:05 93357 Hemoglobin; glycosylated (A1C) by device cleared by FDA for home use 07/20/2018 13:54:05 G8427 Eligible clinician attests to documenting in the medical record they obtained, updated, or reviewed the patient's current medications 07/20/2018 13:54:05 1036F Current tobacco non-user (CAD, CAP, COPD, PV) (DM) (IBD) 07/20/2018 13:54:05 3044F Most recent hemoglobin A1c (HbA1c) level less than 7.0% (DM) 06/03/2018 08:23:02 75481 Office or other outpatient visit for the [...] high severity. Physicians typically spend 25 minutes hiqb-ho-fdwz with the patient and/or family. 06/03/2018 08:23:02 87018 Hemoglobin; glycosylated (A1C) by device cleared by FDA for home use 06/03/2018 08:23:02 3045F Most recent hemoglobin A1c (HbA1c) level 7.0-9.0% (DM) 03/27/2018 08:56:44 22769 Office or other outpatient visit for the [...] moderate severity. Physicians typically spend 15 minutes dlus-nr-otqo with the patient and/or family. 03/27/2018 08:56:44 3045F Most recent hemoglobin A1c (HbA1c) level 7.0-9.0% (DM) 03/27/2018 08:56:44 52290 Hemoglobin; glycosylated (A1C) by device cleared by FDA for home use 03/27/2018 08:56:44 G8427 Eligible clinician attests to documenting in the medical record they obtained, updated, or reviewed the patient's current medications 12/26/2017 08:55:27 87810 Office or other outpatient visit for the [...] high severity. Physicians typically spend 25 minutes tgup-oq-alhf with the patient and/or family. 12/26/2017 08:55:27 3045F Most recent hemoglobin A1c (HbA1c) level 7.0-9.0% (DM) 12/26/2017 08:55:27 09587 Hemoglobin; glycosylated (A1C) by device cleared by FDA for home use 12/26/2017 08:55:27 1036F Current tobacco non-user (CAD, CAP, COPD, PV) (DM) (IBD) 12/26/2017 08:55:27 G8427 Eligible clinician attests to documenting in the medical record they obtained, updated, or reviewed the patient's current medications 12/26/2017 08:55:27 2021F Dilated retinal eye exam with interpretation by an golf sales manager or customs compliance manager documented and reviewed (DM) 09/24/2017 08:27:29 52199 Office or other outpatient visit for the [...] high severity. Physicians typically spend 25 minutes uegq-hr-bmzk with the patient and/or family. 09/24/2017 08:27:29 73806 Hemoglobin; glycosylated (A1C) by device cleared by FDA for home use 09/24/2017 08:27:29 3045F Most recent hemoglobin A1c (HbA1c) level 7.0-9.0% (DM) 09/24/2017 08:27:29 1036F Current tobacco non-user (CAD, CAP, COPD, PV) (DM) (IBD) 06/02/2017 08:22:37 67241 Periodic comprehensive preventive medicine reevaluation and management [...] CAP, COPD, PV) (DM) (IBD) 06/02/2017 08:22:37 67618 Hemoglobin; glycosylated (A1C) by device cleared by FDA for home use 03/07/2017 09:18:02 70803 Office or other outpatient visit for the [...] high severity. Physicians typically spend 25 minutes vzqk-qu-xgcj with the patient and/or family. 03/07/2017 09:18:02 11336 Hemoglobin; glycosylated (A1C) by device cleared by FDA for home use 01/15/2017 08:13:41 93326 Office or other outpatient visit for the [...] high severity. Physicians typically spend 25 minutes luva-yy-dwze with the patient and/or family. 11/11/2016 09:37:13 30853 Hemoglobin; glycosylated (A1C) by device cleared by FDA for home use 11/06/2016 08:26:32 63795 Office or other outpatient visit for the [...] moderate severity. Physicians typically spend 15 minutes cwng-ai-yxyi with the patient and/or family. 09/04/2016 09:23:52 47799 Office or other outpatient visit for the [...] moderate severity. Physicians typically spend 15 minutes ybbd-xj-uztd with the patient and/or family. 07/10/2016 08:21:01 00352 Office or other outpatient visit for the [...] high severity. Physicians typically spend 25 minutes qfap-nf-wjxa with the patient and/or family. 07/10/2016 08:21:01 37417 Hemoglobin; glycosylated (A1C) by device cleared by FDA for home use 05/15/2016 08:27:09 25975 Office or other outpatient visit for the [...] moderate severity. Physicians typically spend 15 minutes szzh-zp-qlhv with the patient and/or family. 05/15/2016 08:27:09 82149 Hemoglobin; glycosylated (A1C) by device cleared by FDA for home use 05/15/2016 08:27:09 G0008 ADMINISTRATION OF FLU VACCINE (V04.81) 05/15/2016 08:27:09 Q2037 FLUVRIN 03/18/2016 08:09:18 57309 Office or other outpatient visit for the [...] high severity. Physicians typically spend 25 minutes bqza-qq-hqng with the patient and/or family. 01/22/2016 08:23:52 72266 Collection of venous blood by venipuncture 01/22/2016 08:23:52 25246 Office or other outpatient visit for the [...] high severity. Physicians typically spend 25 minutes lexv-cf-ioja with the patient and/or family. 12/15/2015 12:17:35 73017 Removal impacted cerumen (separate procedure), 1 or both ears 12/15/2015 12:17:35 99427 Office or other outpatient visit for the [...] moderate severity. Physicians typically spend 15 minutes gmcx-cy-suxf with the patient and/or family. 11/17/2015 08:15:21 66040 Collection of venous blood by venipuncture 11/17/2015 08:15:21 09788 Office or other outpatient visit for the [...] high severity. Physicians typically spend 40 minutes wtec-nd-kxrv with the patient and/or family. 11/17/2015 08:15:21 18783 Hemoglobin; glycosylated (A1C) by device cleared by FDA for home use 09/27/2015 08:29:20 23121 Periodic comprehensive preventive medicine reevaluation and management of an individual including an age and gender appropriate history, examination, counseling/anticipatory guidance/risk factor reduction interventions, and the ordering of laboratory/diagnostic procedures, established patient; 40-64 years 09/27/2015 08:29:20 74742 Collection of venous blood by venipuncture 09/27/2015 08:29:20 51712 Hemoglobin; glycosylated (A1C) by device cleared by FDA for home use 08/11/2015 08:14:29 72521 Office or other outpatient visit for the [...] moderate severity. Physicians typically spend 15 minutes lese-we-aoxz with the patient and/or family. 06/19/2015 08:27:11 92355 Office or other outpatient visit for the [...] moderate severity. Physicians typically spend 15 minutes docz-tu-oydc with the patient and/or family. 04/26/2015 08:20:21 10459 Office or other outpatient visit for the [...] moderate severity. Physicians typically spend 15 minutes xgsy-fa-afnd with the patient and/or family. 04/26/2015 08:20:21 86388 Hemoglobin; glycosylated (A1C) by device cleared by FDA for home use 01/18/2015 08:11:52 21684 Office or other outpatient visit for the [...] moderate severity. Physicians typically spend 15 minutes fezk-gm-dabc with the patient and/or family. 11/30/2014 08:15:54 58468 Office or other outpatient visit for the [...] high severity. Physicians typically spend 25 minutes urst-oq-jkfx with the patient and/or family. 11/30/2014 08:15:54 40398 Collection of venous blood by venipuncture 11/30/2014 08:15:54 19051 Hemoglobin; glycosylated (A1C) by device cleared by FDA for home use 10/19/2014 00:00:00 55766 Collection of venous blood by venipuncture 10/19/2014 00:00:00 59907 Office or other outpatient visit for the [...] moderate severity. Physicians typically spend 15 minutes vbic-td-knhl with the patient and/or family. 09/16/2014 00:00:00 89145 Office or other outpatient visit for the [...] moderate severity. Physicians typically spend 15 minutes svlc-sc-dmgc with the patient and/or family. 09/14/2014 00:00:00 21708 Office or other outpatient visit for the [...] moderate severity. Physicians typically spend 15 minutes dhlh-eu-wrmq with the patient and/or family. 08/22/2014 15:40:11 88667 INFLUENZA VACCINATION 08/22/2014 15:40:11 96140 Periodic comprehensive preventive medicine reevaluation and management of an individual including an age and gender appropriate history, examination, counseling/anticipatory guidance/risk factor reduction interventions, and the ordering of laboratory/diagnostic procedures, established patient; 40-64 years 08/22/2014 15:40:11 00106 Collection of venous blood by venipuncture 08/22/2014 15:40:11 Q2037 FLUVRIN 05/09/2014 00:00:00 79681 Office or other outpatient visit for the [...] moderate severity. Physicians typically spend 15 minutes zprl-yf-mifr with the patient and/or family. 05/09/2014 00:00:00 95451 Hemoglobin; glycosylated (A1C) by device cleared by FDA for home use 03/16/2014 00:00:00 02577 Office or other outpatient visit for the [...] high severity. Physicians typically spend 25 minutes oogo-qe-lsuz with the patient and/or family. 03/16/2014 00:00:00 34126 Hemoglobin; glycosylated (A1C) by device cleared by FDA for home use 11/05/2013 00:00:00 45002 Office or other outpatient visit for the [...] moderate severity. Physicians typically spend 15 minutes nhsw-cy-ikfj with the patient and/or family. 11/05/2013 00:00:00 88949 Collection of venous blood by venipuncture 11/05/2013 00:00:00 49526 Hemoglobin; glycosylated (A1C) by device cleared by FDA for home use 06/11/2013 00:00:00 88638 Periodic comprehensive preventive medicine reevaluation and management of an individual including an age and gender appropriate history, examination, counseling/anticipatory guidance/risk factor reduction interventions, and the ordering of laboratory/diagnostic procedures, established patient; 40-64 years 06/11/2013 00:00:00 39831 Hemoglobin; glycosylated (A1C) by device cleared by FDA for home use 06/09/2013 08:31:54 83667 Office or other outpatient visit for the [...] moderate severity. Physicians typically spend 15 minutes jvmx-ta-gmbh with the patient and/or family. 02/17/2013 08:29:32 60374 Office or other outpatient visit for the [...] moderate severity. Physicians typically spend 15 minutes jldl-vs-sqnr with the patient and/or family. 02/17/2013 08:29:32 48567 Collection of venous blood by venipuncture 02/17/2013 08:29:32 74206 Hemoglobin; glycosylated (A1C) by device cleared by FDA for home use 11/02/2012 08:13:33 94578 Periodic comprehensive preventive medicine reevaluation and management of an individual including an age and gender appropriate history, examination, counseling/anticipatory guidance/risk factor reduction interventions, and the ordering of laboratory/diagnostic procedures, established patient; 40-64 years 11/02/2012 08:13:33 83168 Hemoglobin; glycosylated (A1C) by device cleared by FDA for home use 08/28/2012 08:54:25 35473 Office or other outpatient visit for the [...] moderate severity. Physicians typically spend 15 minutes sriw-af-xbjk with the patient and/or family. 08/05/2012 11:43:02 46261 Office or other outpatient visit for the [...] moderate severity. Physicians typically spend 15 minutes cbla-pa-hajn with the patient and/or family. 08/05/2012 11:43:02 78235 Hemoglobin; glycosylated (A1C) by device cleared by FDA for home use 02/26/2012 08:27:00 51085 Collection of venous blood by venipuncture 02/26/2012 08:27:00 66414 Office or other outpatient visit for the [...] high severity. Physicians typically spend 25 minutes edsc-ki-lbzj with the patient and/or family. 10/23/2011 08:31:03 60178 Office or other outpatient visit for the [...] moderate severity. Physicians typically spend 15 minutes suie-qh-gtrw with the patient and/or family. 10/23/2011 08:31:03 43944 Hemoglobin; glycosylated (A1C) by device cleared by FDA for home use 08/21/2011 08:26:48 89874 Collection of venous blood by venipuncture 08/21/2011 08:26:48 38108 Office or other outpatient visit for the [...] moderate severity. Physicians typically spend 15 minutes ldie-kt-twap with the patient and/or family. 06/19/2011 08:43:09 70225 INFLUENZA VACCINATION 06/19/2011 08:43:09 97312 Collection of venous blood by venipuncture 06/19/2011 08:43:09 62297 Immunization administration (includes percutaneous, intradermal, subcutaneous, or intramuscular injections); one vaccine (single or combination vaccine/toxoid) 06/19/2011 08:43:09 65440 Office or other outpatient visit for the [...] high severity. Physicians typically spend 25 minutes kxrm-ru-hkss with the patient and/or family. 03/08/2011 08:41:01 00483 Office or other outpatient visit for the [...] high severity. Physicians typically spend 25 minutes qejv-se-qaej with the patient and/or family. 12/26/2010 08:18:16 01401 Collection of venous blood by venipuncture 12/26/2010 08:18:16 65770 Office or other outpatient visit for the [...] moderate severity. Physicians typically spend 15 minutes jlku-pj-nkrc with the patient and/or family. 12/14/2010 08:19:33 08073 Office or other outpatient visit for the [...] high severity. Physicians typically spend 25 minutes tfax-ag-uabv with the patient and/or family. 09/24/2010 08:30:35 79706 Office or other outpatient visit for the [...] high severity. Physicians typically spend 25 minutes zckk-zy-xeub with the patient and/or family. 08/29/2010 00:00:00 50542 Office or other outpatient visit for the [...] high severity. Physicians typically spend 25 minutes zats-wv-qqky with the patient and/or family. 06/27/2010 00:00:00 80605 Office or other outpatient visit for the [...] high severity. Physicians typically spend 25 minutes txcl-lg-pijt with the patient and/or family. 06/27/2010 00:00:00 G8553 AT [employer] PRESCRIPTION CREATED DURING THE ENCOUNTER WAS GENERATED AND TRANSMITTED ELECTRONICALLY USING A QUALIFIED [employer] SYSTEM 06/27/2010 00:00:00 77715 Collection of venous blood by venipuncture 06/13/2010 00:00:00 92941 Office or other outpatient visit for the [...] moderate severity. Physicians typically spend 15 minutes pmwj-pa-ygdo with the patient and/or family. 03/23/2010 00:00:00 96416 Office or other outpatient visit for the [...] high severity. Physicians typically spend 25 minutes lxuy-ip-chsu with the patient and/or family. 03/23/2010 00:00:00 21247 Collection of venous blood by venipuncture 01/26/2010 00:00:00 26906 Office or other outpatient visit for the [...] high severity. Physicians typically spend 25 minutes gvvu-yc-fjos with the patient and/or family. 12/20/2009 00:00:00 72807 Collection of venous blood by venipuncture 12/20/2009 00:00:00 61493 Office or other outpatient visit for the [...] moderate severity. Physicians typically spend 15 minutes yfzl-rj-igtq with the patient and/or family. 09/18/2009 00:00:00 75665 Office or other outpatient visit for the [...] high severity. Physicians typically spend 25 minutes sbce-zz-bwsx with the patient and/or family. 09/18/2009 00:00:00 96274 Collection of venous blood by venipuncture 06/28/2009 00:00:00 57258 Office or other outpatient visit for the [...] high severity. Physicians typically spend 25 minutes fsym-au-wsjk with the patient and/or family. 06/16/2009 00:00:00 19578 Office or other outpatient visit for the [...] high severity. Physicians typically spend 25 minutes koab-tg-yhbh with the patient and/or family. 06/16/2009 00:00:00 94392 Blood, occult, by peroxidase activity (eg, guaiac), qualitative; feces, consecutive collected specimens with single determination, for colorectal neoplasm screening (ie, patient was provided 3 cards or single triple card for consecutive collection) 06/16/2009 00:00:00 22352 Collection of venous blood by venipuncture -- 53501 Collection of v enous blood by venipuncture [...] BLOOD COUNT 4.69 10 6/uL 4.30-6.10 [facility] 10/25/2019 16:44:00 HEMOGLOBIN 14.3 g/dl 13. 5-17.5 [facility] 10/25/2019 16:44:00 HEMATOCRIT 43.6 % 42.0-5 2.0 [facility] 10/25/2019 16:44:00 MEAN CORPUSCULAR VOLUME 93.0 fl 80.0-96.0 No [facility] 10/25/2019 16:44:00 MEAN CORPUSCULAR HEMOGLOBIN 30.5 pg 27.0- 33.0 No [facility] 10/25/2019 16:44:00 MEAN CORPUSCULAR HGB CONC 32.8 g/dl 32.0- 36.5 [facility] 10/25/2019 16:44:00 RED CELL DISTRIBUTION WIDTH 13.2 % 11.5-14.5 [facility] 10/25/2019 16:44:00 PLATELET COUNT, AUTOMATED 287 10 3/uL 150- 450 [facility] 10/25/2019 16:44:00 NEUTROPHILS % 67.5 % 36. 0-66.0 H 10/25/2019 16:44:00 LYMPH % 20.0 % 24.0-44.0 L 10/25/2019 16:44:00 MONO % 8.0 % 0.0-5.0 H 10/25/2019 16:44:00 EOS % 3.7 % 0.0-3.0 H 10/25/2019 16:44:00 BASO % 0.5 % 0.0-1.0 [facility] 10/25/2019 16:44:00 IMMATURE GRANULOCYTE % 0.3 % 0-3.0 [facility] 10/25/2019 16:44:00 NUCLEATED RED BLOOD CELL % 0.0 % 0-0 [facility] 10/25/2019 16:44:00 NEUTROPHILS # 4.0 10 3/uL 1.5-8.5 [facility] 10/25/2019 16:44:00 LYMPH # 1.2 10 3/uL 1.5- 5.0 L 10/25/2019 16:44:00 MONO # 0.5 10 3/uL 0.0-0 .8 [facility] 10/25/2019 16:44:00 EOS # 0.2 10 3/uL 0.0-0.5 [facility] 10/25/2019 16:44:00 BASO # 0.0 10 3/uL [...] for Exam: Chest Pain Stationary ECG Study [facility] - ED Test Date: 2016-04-20 Pat Name: ESTRELLA MENDOZA Department: Room: - 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 : [id number] Requested By: Jung Sofia Order Number: [id number] Reading MD: Shira Otero Measurements Intervals [place] Rate: 77 P: 68 UT: 152 QRS: -30 QRSD: 100 T: 44 QT: 384 QTc: 437 Interpretive Statements SINUS RHYTHM BORDERLINE LEFT AXIS DEVIATION LOW VOLTAGE LIMB NSTTW ABNORMALITY NO PRIOR FOR COMPARISON Electronically Signed On 04-21-2016 20:05:36 EDT by Shira Otero DD: PEDRO 04/20/2016 1312 DT: EPIPHANY 04/21/20162004 DS: PEDRO 04/21/20162004 The Following Link and Pin can be used to access images associated with this report: [email or web address] [email or web address] [id number] N/A N/A 04/20/2016 13:07:00 HEMOGLOBIN A1c [...] 19:03:00 ALKALINE PHOSPHATASE 65 U/L 45-117 [facility] 01/22/2016 19:03:00 BILIRUBIN,TOTAL 0.5 MG/DL 0.2-1.0 No [facility] 01/22/2016 19:03:00 TOTAL PROTEIN 7.5 GM/DL 6.4-8.2 No [facility] 01/22/2016 19:03:00 ALBUMIN 4.2 GM/DL 3.2-5.2 No [facility] 01/22/2016 19:03:00 ALBUMIN/GLOBULIN RATIO 1.27 1.00-1.93 No [facility] 01/22/2016 19:03:00 TRIGLYCERIDES LEVEL 207 MG/DL <150 H 01/22/2016 19:03:00 CHOLESTEROL LEVEL 153 MG/DL <200 No [facility] 01/22/2016 19:03:00 HDL CHOLESTEROL 40 MG/DL >40 No [facility] 01/22/2016 19:03:00 LDL CHOLESTEROL 71.6 MG/DL <100 No [facility] 01/22/2016 19:03:00 NON-HDL-C 113 MG/DL -- No [facility] 01/22/2016 19:03:00 CHOLESTEROL RISK RATIO 3.825 <5 No [facility] 01/22/2016 19:03:00 WHITE BLOOD COUNT 5.9 K/mm3 5.0-10.0 No [facility] 01/22/2016 18:56:00 RED BLOOD COUNT 4.80 M/mm3 4.70-6.10 No [facility] 01/22/2016 18:56:00 HEMOGLOBIN 14.7 g/dl 14. 0-18.0 No [facility] 01/22/2016 18:56:00 HEMATOCRIT 44.1 % 42.0-5 2.0 No [facility] 01/22/2016 18:56:00 MEAN CORPUSCULAR VOLUME 91.8 fl 80.0-96.0 No [facility] 01/22/2016 18:56:00 MEAN CORPUSCULAR HEMOGLOBIN 30.5 pg 27.0- 33.0 No [facility] 01/22/2016 18:56:00 MEAN CORPUSCULAR HGB CONC 33.3 g/dl 32.0- 36.5 No [facility] 01/22/2016 18:56:00 RED CELL DISTRIBUTION WIDTH 13.9 % 11.5-14.5 No [facility] 01/22/2016 18:56:00 PLATELET COUNT, AUTOMATED 264 k/mm3 172-450 No [facility] 01/22/2016 18:56:00 NEUTROPHILS % 70.6 % 36. [...] Observed Smoking Status Former smoker, [TERI D-CT: [id number]], 75.00 pk yrs/20.00 yrs quit 11/30/2014 - [...] multiple contacts to reassure him 10/02/2020 08:16:17 He does have diabetes and [...] his sliding scale meal coverage to evaluate. 09/27/2020 13:05:10 two extra tylenol tid and [...] helping him alot will have hgac in oct 5 min phone only 09/15/2020 12:51:28 This visit was spent in reviewing with the patient their chart, labs and testing, speaking with the patient via telemedicine(video feed), answering questions and completing a plan. He is testing qid and his is helping him alot will have hgac on oct 5 min phone only 09/15/2020 12:51:28 This visit was spent in reviewing with the patient their chart, labs and testing, speaking with the patient via telemedicine(video feed), answering questions and completing a plan. He is testing qid and his is helping him alot will have hgac in oct 5 min phone only 08/30/2020 08:24:51 This [...] hs, # 60, RF: 2. (Transmitted by [employer]People, [employer]) ORDERED/ADVISED: Order Date 08-15-2020 - CBC with diff (automated) (K85.90, E11.65) - CMP (Complete Metabolic Panel) (K85.90, E11.65) - Amylase/Lipase (generalized itching) (K85.90, E11.65) use oil based moisturizer for skin over the short run. 11 minute video feed 08/15/2020 08:57:07 PRESCRIBE: hydrOXYzine hydrochloride 25 mg oral tablet, one po bid prn and two po at hs, # 60, RF: 2. (Transmitted by [employer]) ORDERED/ADVISED: Order Date 08-15-2020 - CBC with [...] bid, # 30, RF: 0. (Transmitted by Colelen Huang DO) ORDERED/ADVISED: Order Date 05-30-2020 - [...] Appointment scheduled for a telehealth visit to [facility] on 03/22/2020. 03/15/2020 12:24:05 HgA1c is 10.0% Appointment scheduled for a telehealth visit to [facility] on 03/22/2020. 10/25/2019 08:14:07 Plan [...] # 30, RF: 0. (Transmitted by Colleen Huang, [employer]) DISCONTINUE: atorvastatin 10 mg oral tablet one [...] # 30, RF: 0. (Transmitted by Colleen DenverDO joelle) DISCONTINUE: atorvastatin 10 mg oral tablet one [...] the Left Deltoid (Mfg: SEQIRUS lot no. [id number], expires 02/29/2020) ORDERED/ADVISED: Order Date 08-13-2019 - [...] # 18, RF: 3. (Transmitted by Colleen Denver, DO) PRESCRIBE: sertraline 100 mg oral tablet, two po daily, # 180, RF: 3. (Transmitted by Colleen Denver, DO) PRESCRIBE: metFORMIN 500 mg oral tablet, two po bid, # 360, RF: 3. (Transmitted by Colleen Denver, DO) PRESCRIBE: lisinopril 10 mg oral tablet, one po daily, # 90, RF: 3. (Transmitted by Colleen Reina, DO) PRESCRIBE: Linzess 145 mcg oral capsule, one po daily prn constipation, # 90, RF: 3. (Transmitted by Colleen Denver, DO) PRESCRIBE: BD Pen Needle Mini U/F, use as directed for lantus injection, # 200, RF: 3. (Transmitted by Colleen Denver, DO) PRESCRIBE: atorvastatin 10 mg oral tablet, one po daily, # 90, RF: 3. (Transmitted by Colleen Reina, DO) CHANGED Current Meds: Trulicity Pen 1.5 [...] the Left Deltoid (Mfg: SEQIRUS lot no. [id number], expires 02/29/2020) ORDERED/ADVISED: Order Date 08-13-2019 - [...] directed, # 18, RF: 3. (Transmitted by ColleenStarWind Softwareard, DO) PRESCRIBE: sertraline 100 mg oral tablet, two po daily, # 180, RF: 3. (Transmitted by Colleen Denver, DO) PRESCRIBE: metFORMIN 500 mg oral tablet, two po bid, # 360, RF: 3. (Transmitted by Colleen Denver, DO) PRESCRIBE: lisinopril 10 mg oral tablet, one po daily, # 90, RF: 3. (Transmitted by ColleenStarWind Softwareard, DO) PRESCRIBE: Linzess 145 mcg oral capsule, one po daily prn constipation, # 90, RF: 3. (Transmitted by ColleenStarWind Softwareard, DO) PRESCRIBE: BD Pen Needle Mini U/F, use as directed for lantus injection, # 200, RF: 3. (Transmitted by Colleen Reina, DO) PRESCRIBE: atorvastatin 10 mg oral tablet, one po daily, # 90, RF: 3. (Transmitted by Wakonda Technologiesard, DO) CHANGED Current Meds: Trulicity Pen 1.5 [...] the Left Deltoid (Mfg: SEQIRUS lot no. [id number], expires 02/29/2020) ORDERED/ADVISED: Order Date 08-13-2019 - [...] 1. (Transmitted by Colleen Huang DO) Barber sncinthia PROVIDED HM: CDSMP Given: "the obesity code", " the diabetes code", and "quide to fasting" by Flakito Estes MD You can download a [employer] melba to your computer and get these books on [facility]. Watch the movie "the magic pill" documentary on [employer] and watch it Counseling and coordination of care: time a significant factor for this patient encounter...30minutes [facility] 06/18/2019 09:23:34 Plan printed and provided to patient: PRESCRIBE: ibuprofen 800 mg oral tablet, one po tid with food, # 90, RF: 1. (Transmitted by Colleen Huang DO) Barber snearani PROVIDED HM: CDSMP Given: "the obesity code", " the diabetes code", and "quide to fasting" by Flakito Estes MD You can download a [employer] melba to your computer and get these books on [employer] [facility]. Watch the movie "the magic pill" documentary on [employer] and watch it 06/18/2019 09:23:34 Plan printed and provided to patient: PRESCRIBE: ibuprofen 800 mg oral tablet, one po tid with food, # 90, RF: 1. (Transmitted by Colleen Huang DO) Barber christopher PROVIDED HM: CDSMP Given: "the obesity code", " the diabetes code", and "quide to fasting" by Flakito Estes MD You can download a sylvia melba to your computer and get these books on [employer]. Watch the movie "the magic pill" documentary on [employer] Flakito Estes [employer] and watch it 03/24/2019 08:14:04 Plan printed and provided to patient: PROVIDED HM: CDSMP Given: "the obesity code", " the diabetes code", and "quide to fasting" by Flakito Estes MD You can download a sylvia melba to your iphone for free. then you can go to [employer] and download books at a reduced jean. [...] for free. then you can go to [employer] and download books at a reduced jean. [...] can download a sylvia melba to your Delyhone for free. then you can go to [employer] and download books at a reduced jean. [...] a significant factor for this patient encounter...25minutes [facility] 12/14/2018 08:01:40 PRESCRIBE: ibuprofen 800 mg oral [...] 90, RF: 1. (Transmitted by Colleen Huang, DO) PRESCRIBE: BD Pen Needle Mini U/F, use as directed for lantus injection, # 200, RF: 3. (Transmitted by Colleen Reina, DO) PRESCRIBE: Lantus Solostar Pen 100 units/mL subcutaneous solution, 14 units sq daily, # 5, RF: 5. (Transmitted by Colleen Denver, DO) PRESCRIBE: Lantus Solostar Pen 100 units/mL subcutaneous solution, 14 units sq daily, # 5, RF: 0. PRESCRIBE: metFORMIN 500 mg oral tablet, two po bid, # 360, RF: 2. 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 (Transmitted by Colleen Denver, [employer]) PRESCRIBE: sertraline 100 mg oral tablet, one po daily, # 90, RF: 3. (Transmitted by Colleen Huang, DO) PRESCRIBE: metFORMIN 500 mg oral tablet, one po bid pc, # 180, RF: 3. (Trans mitted by Colleen Huang DO) PRESCRIBE: lisinopril 10 mg oral tablet, one po daily, # 90, RF: 3. (Transmitted by Colleen Denver, DO) PRESCRIBE: Linzess 145 mcg oral capsule, one po daily prn constipation, # 90, RF: 3. (Transmitted by ColleenStarWind Softwareard, [employer]) PRESCRIBE: atorvastatin 10 mg oral tablet, one po daily, # 90, RF: 3. (Transmitted by Colleen Denver, ) CHANGED Current Meds: Trulicity Pen 1.5 mg/0.5 mL subcutaneous solution REMOVED from Current Meds: Lantus Solostar Pen 100 units/mL subcutaneous solution, 14 units sq daily, # 5, RF: 0. (Transmitted by Wakonda Technologiesard, ) Date Prescribed: 06/26/2018 REMOVED from Current Meds: [...] wheeze, # 1, RF: 3. (Transmitted by ColleenStarWind Softwareard, DO) PRESCRIBE: metFORMIN 500 mg oral tablet, one po bid pc, # 180, RF: 3. (Transmitted by Colleen Reina, DO) PRESCRIBE: lisinopril 10 mg oral tablet, one po daily, # 90, RF: 3. (Transmitted by Colleen Reina, DO) PRESCRIBE: Linzess 145 mcg oral capsule, one po daily prn constipation, # 90, RF: 3. (Transmitted by ColleenStarWind Softwareard, DO) PRESCRIBE: Lantus Solostar Pen 100 units/mL subcutaneous solution, 25 units hs daily, # 5, RF: 5. (Transmitted by ColleenStarWind Softwareard, DO) PRESCRIBE: glipiZIDE 10 mg oral tablet, one po daily, # 90, RF: 3. (Transmitted by Colleen Reina, DO) PRESCRIBE: BD Pen Needle Mini U/F, use as directed for lantus injection, # 100, RF: 3. (Transmitted by ColleenStarWind Softwareard, DO) PRESCRIBE: atorvastatin 10 mg oral tablet, one po daily, # 90, RF: 3. (Transmitted by Wakonda Technologiesard, DO) He is walking at least a [...] diabetes related complication....14% decrease in risk of ME.....12%decrease risk of stroke...and a 37% decrease risk [...] we have to work with? Time/Travel/Tastes/Treatments?? Arrange: Business Operations Coordinator? www.[email or web address] Draft Roller Picker?www.[email or web address] Pharmacy/Pharmacy benefits Literature? Recipes Diabetes Ray www.diabetes.org www.ncbde.org www.diabeeseducator.org/deap www.ndep.nih.gov www.diabetes.org www.learningaboutdiabetes.org www.diabeticconnect.com www.Training Amigonow.FiftyFiver www.diabeteswhattoknow.com www.peersforprogress.org [place] Read about [...] diabetes related complication....14% decrease in risk of ME.....12%decrease risk of stroke...and a 37% decrease risk [...] we have to work with? Time/Travel/Tastes/Treatments?? Arrange: Business Operations Coordinator? www.[email or web address] Draft Roller Picker?www.diabeteseducator.org Pharmacy/Pharmacy benefits Literature? Recipes Diabetes Ray www.diabetes.org www.ncbde.org www.diabeeseducator.org/deap www.ndep.nih.gov www.diabetes.org www.learningaboutdiabetes.org www.diabeticconnect.com www.Training [employer].FiftyFiver www.diabeteswhattMatthew Kenney Cuisinenow.com www.peersforprogress.org [place] Read about tanner [...] diabetes related complication....14% decrease in risk of ME.....12%decrease risk of stroke...and a 37% decrease risk [...] we have to work with? Time/Travel/Tastes/Treatments?? Arrange: Business Operations Coordinator? www.eatright.org Draft Roller Picker?www.diabeteseducator.org Pharmacy/Pharmacy benefits Literature? Recipes Diabetes Ray www.diabetes.org www.ncbde.org www.diabeeseducator.org/deap www.ndep.nih.gov www.diabetes.org www.learningaboutdiabetes.org www.diabeticconnect.com www.whatoknow.com www.diabeteswhattoknow.com www.peersforprogress.org [place] Read about cristinoalexandrokaleb 03/07/2017 09:18:02 Plan printed and provided to [...] diabetes related complication....14% decrease in risk of ME.....12%decrease risk of stroke...and a 37% decrease risk [...] we have to work with? Time/Travel/Tastes/Treatments?? Arrange: Business Operations Coordinator? www.eatright.org Draft Roller Picker?www.diabeteseducator.org Pharmacy/Pharmacy benefits Literature? Recipes Diabetes Ray www.diabetes.org www.ncbde.org www.diabeeseducator.org/deap www.ndep.nih.gov www.diabetes.org www.learningaboutdiabetes.org www.diabeticconnect.com www.whatMatthew Kenney Cuisinenow.FiftyFiver www.diabeteswhattoknow.com www.peersforprogress.org [place] PROVIDED HM: [...] 0. (Transmitted by Colleen Huang DO) Research marry. PROVIDED HM: High Blood Pressure in Adults: Screening Given: 138/80 PROVIDED HM: DSME Given: Ask: Did you know? For every 1% decrease in HGBAC, there is evidence for 21% decrease in diabetes related complication....14% decrease in risk of ME.....12%decrease risk of stroke...and a 37% decrease risk [...] we have to work with? Time/Travel/Tastes/Treatments?? Arrange: Business Operations Coordinator? www.eatright.org Draft Roller Picker?www.diabeteseducator.org Pharmacy/Pharmacy benefits Literature? Recipes Diabetes Ray www.diabetes.org www.ncbde.org www.diabeeseducator.org/deap www.ndep.nih.gov www.diabetes.org www.learningaboutdiabetes.org www.diabeticconnect.com www.Digital Royalty.FiftyFiver www.diabeteswhattMatthew Kenney CuisinenoPeachtree Village Digital Institute.com www.peersforprogress.org [place] PROVIDED HM: Obesity: [...] diabetes related complication....14% decrease in risk of ME.....12%decrease risk of stroke...and a 37% decrease risk [...] What information do you need? Assist: research Victoza/byjaretreon I can get you the information/tools you desire? Can I get you the information/tools you desire? What do we have to work with? Time/Travel/Tastes/Treatments?? Arrange: Business Operations Coordinator? www.eatright.org Draft Roller Picker?www.diabeteseducator.org Pharmacy/Pharmacy benefits Literature? Recipes Diabetes Ray www.diabetes.org www.ncbde.org www.diabeeseducator.org/deap www.ndep.nih.gov www.diabetes.org www.learningaboutdiabetes.org www.diabeticconnect.com www.Training Amigonow.FiftyFiver www.diabeteswhattoknow.com www.peersforprogress.org [place] PROVIDED HM: [...] 60, RF: 0. PROVIDED HM: CDSMP Given: [employer] "Addictocarb Carb" Consider the Mediterranean Diet. Eliminate [...] 60, RF: 0. PROVIDED HM: CDSMP Given: [employer] "Addictocarb Carb" Consider the Mediterranean Diet. Eliminate [...] support/Move your body/Think positive/Be good to yourself/ [place] [employer] Diabetic Educators....7 behaviors for diabetes [...] # 6, RF: 0. (Transmitted by Colleen Denver, ) ORDERED/ADVISED: - CXR - PA & [...] support/Move your body/Think positive/Be good to yourself/ [place] [employer]abetic Educators....7 behaviors for diabetes [...] support/Move your body/Think positive/Be good to yourself/ [place] [employer] Diabetic Educators....7 behaviors for diabetes [...] the Left Deltoid (Mfg: OTHER lot no. [id number], expires 01/08/2017) PROVIDED HM: Screening for Depression in Adults Given: Not present Percoset script to [facility] 05/15/2016 08:27:09 Plan printed and provided to patient: PROVIDED VACCINATION: 1 dose of Fluvirin, 0.5 mL IM in the Left Deltoid (Mfg: OTHER lot no. [id number], expires 01/08/2017) PROVIDED HM: Screening for Depression in Adults Given: Not present Percoset script to [facility] 05/15/2016 08:27:09 Plan printed and provided to patient: PROVIDED VACCINATION: 1 dose of Fluvirin, 0.5 mL IM in the Left Deltoid (Mfg: OTHER lot no. [id number], expires 01/08/2017) PROVIDED HM: Screening for Depression [...] daily, # 90, RF: 3. (Transmitted by [employer], [employer]) PRESCRIBE: cholecalciferol 50,000 intl units oral capsule, one po weekly, # 12, RF: 3. (Transmitted by Wakonda [employer]ard, DO) PRESCRIBE: atorvastatin 10 mg oral tablet, one po daily, # 90, RF: 3. (Transmitted by [employer], [employer]) ORDERED/ADVISED: - CBC with diff (automated) ICD [...] daily, # 1, RF: 5. (Transmitted by Wakonda Technologiesard, DO) PRESCRIBE: Cortisporin-TC otic suspension, 4 gtts into left EAC bid, # 5, RF: 0. (Transmitted by [employer], DO) Increase lantus insulin to 24 units [...] pc, # 180, RF: 0. (Transmitted by Wakonda Technologiesard, DO) PRESCRIBE: lisinopril 10 mg oral tablet, one po daily, # 90, RF: 0. (Transmitted by Wakonda Technologiesard, DO) PRESCRIBE: glipiZIDE 10 mg oral tablet, one po daily, # 90, RF: 0. (Transmitted by Wakonda Technologiesard, DO) PRESCRIBE: Lantus Solostar Pen 100 units/mL [...] the Left Deltoid (Mfg: NOVARTIS lot no. [id number], expires 01/29/2015) ORDERED/ADVISED: - CBC with diff [...] 13:52:33 Instructions printed and provided to patient: SOLUTION STRATEGIST site consulted prior to scheduled drug prescription. [...] bid prn pain, # 60, RF: NONE. SOLUTION STRATEGIST site consulted prior to scheduled drug prescription. [...] 3. (Transmitted by Colleen Huang, DO) PRESCRIBE: metformin 1000 mg oral tablet, [...] Ds) ICD9 Codes (250.00, 600.9, 272.4, 401.9) SOLUTION STRATEGIST site consulted prior to scheduled drug prescription. just two days ago 06/09/2013 08:31:54 PRESCRIBE: Klonapin 0,5mg , one or two po hs prn insomnia, # 10, RF: 0. 02/17/2013 08:29:32 PRESCRIBE: Zoloft 50 mg oral tablet, one po daily, # 90, RF: 3. (Transmitted by Colleen Huang, DO) PRESCRIBE: metformin 1000 mg oral tablet, [...] (Transmitted by Colleen Huang DO) PRESCRIBE: BD ultrafine needles for byetta injection, [...] by Colleen Huang DO) All sent to [facility] today and 06/19/11. DISCONTINUE: gabapentin 300 mg [...] ml IM in the L DELTOID (Mfg: APERA BAGS lot no. [id number], expires 02/28/2012) ORDERED/ADVISED: - Urine microalbumin (AODM) [...] PRESCRIBE: Gabapentin 100mg, one or two po d1dtcuk prn back pain, # 180, RF: 5. [...] (/min) Head Circumf OFC by Tape measure 08/14/2020 09:42:50 -- 2 50 -- -- [...]
--- OUTSIDE RECORDS SUMMARY | 2020-10-17 11:13 | CCD ---
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 Colleen Huang DO 09-26-2020 Type II diabetes mellitus poorly control led [SNOMED-CT: 957160744] Dr. Colleen Huang DO 09-26-2020 Type II diabetes mellitus poorly control led [SNOMED-CT: 833343591] Dr. Colleen Huang DO 09-15-2020 Nausea and vomiting [SNOMED-CT: 79552696] Dr. Colleen Huang DO 09-15-2020 Emotional stress [SNOMED-CT: 957956345] Dr. Colleen Huang DO 08-30-2020 Type II diabetes mellitus poorly control led [SNOMED-CT: 024613235] Dr. Colleen Huang DO 08-30-2020 Acute pancreatitis [SNOMED-CT: 707403250] Dr. Colleen Huang DO 08-23-2020 Type II diabetes mellitus poorly control led [SNOMED-CT: 615282617] Dr. Colleen Huang DO 08-23-2020 Generalised itching [SNOMED-CT: 539891576] Celestine Huang DO 08-23-2020 Thyroiditis [SNOMED-CT: 26162335] Dr Joe Huang, DO 08-23-2020 Chronic kidney disease [SNOMED-CT: 747287311] Dr. Colleen Huang, DO 08-23-2020 Acute pancreatitis [SNOMED-CT: 703531408] Dr. Colleen Huang, DO 08-15-2020 Type II diabetes mellitus poorly control led [SNOMED-CT: 662455889] Dr. Colleen Huang, DO 08-15-2020 Generalised itching [SNOMED-CT: 515048950] Celestine Huang, DO 08-15-2020 Acute pancreatitis [SNOMED-CT: 194071717] Dr. Colleen Huang, DO 08-14-2020 Type II diabetes mellitus poorly control led [SNOMED-CT: 640951360] Dr. Colleen Huang, DO 08-14-2020 Other hyperlipidemia [ICD10: E78.49] Dr. Colleen Huang, DO 08-14-2020 Balanitis [SNOMED-CT: 92157666] Dr. Colleen Huang, DO 05-30-2020 Type II diabetes mellitus poorly control led [SNOMED-CT: 261747844] Dr. Colleen Huang, DO 05-30-2020 Type II diabetes mellitus poorly control led [SNOMED-CT: 208532828] Dr. Colleen Huang, DO 03-22-2020 Other hyperlipidemia [ICD10: E78.49] Dr. Colleen Huang, DO 03-22-2020 DIABETES MELLITUS WITHOUT MENTION OF COM PLICATION [SNOMED-CT: 186943450] N/A N/A 03-15-2020 Acute rhinosinusitis [SNOMED-CT: 094607197] Dr. Colleen Huang, DO 09-08-2019 Upper respiratory infection [SNOMED-CT: 76498713] Dr. Colleen Huang, DO 09-08-2019 DIABETES WITH RENAL MANIFESTATIONS TYPE II OR UNSPECIFIED TYPE NOT STATED UNCONTROLLED [SNOMED-CT: 044657369] Dr. Colleen Huang, DO 08-13-2019 UNSPECIFIED ESSENTIAL HYPERTENSION [SNOMED-CT: 2264727 0] N/A N/A 08-13-2019 ANXIETY STATE UNSPECIFIED [SNOMED-CT: 750687752] Celestine Huang, DO 08-13-2019 CHRONIC KIDNEY DISEASE STAGE II (MILD) [SNOMED-CT: 431 330124] Dr. Colleen Huang, DO 08-13-2019 Other specified vaccination [ICD10: Z23] Celestine Huang, DO 08-13-2019 Pain in left foot [SNOMED-CT: 420848947885768] Dr. Colleen Huang, DO 06-18-2019 DIABETES MELLITUS WITHOUT MENTION OF COM PLICATION [SNOMED-CT: 586603629] Celestine Huang, DO 06-18-2019 DIABETES WITH RENAL MANIFESTATIONS TYPE II OR UNSPECIFIED TYPE NOT STATED UNCONTROLLED [SNOMED-CT: 381770933] Dr. Colleen Huang, DO 03-24-2019 Contusion of lower back and pelvis, init ial encounter [ICD10: S30.0XXA] Dr. Colleen Huang, DO 12-14-2018 DIABETES WITH RENAL MANIFESTATIONS TYPE II OR UNSPECIFIED TYPE NOT STATED UNCONTROLLED [SNOMED-CT: 400622627] Dr. Colleen Huang, DO 12-14-2018 DIABETES MELLITUS WITHOUT MENTION OF COM PLICATION [SNOMED-CT: 217016778] N/A N/A 09-07-2018 DIABETES WITH RENAL MANIFESTATIONS TYPE II OR UNSPECIFIED TYPE NOT STATED UNCONTROLLED [SNOMED-CT: 186376028] Dr. Colleen Huang, DO 07-20-2018 Other hyperlipidemia [ICD10: E78.49] Dr. Colleen Huang, DO 07-20-2018 Back pain [SNOMED-CT: 887461196] Dr. Colleen Huang, DO 06-03-2018 DIABETES WITH RENAL MANIFESTATIONS TYPE II OR UNSPECIFIED TYPE NOT STATED UNCONTROLLED [SNOMED-CT: 245949803] Dr. Colleen Huang, DO 06-03-2018 Arthropathy of left shoulder [SNOMED-CT: 5864610318127 9103] Dr. Colleen Huang, DO 06-03-2018 DIABETES WITH RENAL MANIFESTATIONS TYPE II OR UNSPECIFIED TYPE NOT STATED UNCONTROLLED [SNOMED-CT: 054959505] Dr. Colleen Huang, DO 03-27-2018 Viral gastroenteritis [SNOMED-CT: 165578739] Dr. Colleen Huang, DO 12-26-2017 DIABETES WITH RENAL MANIFESTATIONS TYPE II OR UNSPECIFIED TYPE NOT STATED UNCONTROLLED [SNOMED-CT: 437419774] Dr. Colleen Huang, DO 12-26-2017 Cat bite [SNOMED-CT: 227837541] Dr. Colleen Huang, DO 12-26-2017 DIABETES WITH RENAL MANIFESTATIONS TYPE II OR UNSPECIFIED TYPE NOT STATED UNCONTROLLED [SNOMED-CT: 543274082] Dr. Colleen Huang, DO 09-24-2017 DIABETES MELLITUS WITHOUT MENTION OF COM PLICATION [SNOMED-CT: 406346695] Celestine Huang, DO 09-24-2017 ROUTINE GENERAL MEDICAL EXAMINATION AT A HEALTH CARE FACILITY [SNOMED-CT: 638093444] Celestine Huang, DO 06-02-2017 DIABETES WITH RENAL MANIFESTATIONS TYPE II OR UNSPECIFIED TYPE NOT STATED UNCONTROLLED [SNOMED-CT: 270304791] Dr. Colleen Huang, DO 06-02-2017 Allergic contact dermatitis of male melissa isamar [SNOMED-CT: 475559021] Dr. Colleen Huang, DO 03-07-2017 Other genital problems [ICD10: R68.89] Dr. Colleen Huang, DO 03-07-2017 DIABETES WITH RENAL MANIFESTATIONS TYPE II OR UNSPECIFIED TYPE NOT STATED UNCONTROLLED [SNOMED-CT: 267854303] Dr. Colleen Huang, DO 03-07-2017 Back pain [SNOMED-CT: 637170686] Dr. Colleen Huang, DO 03-07-2017 LUMBAGO [SNOMED-CT: 815399074] Jose Angel Huang, DO 03-07-2017 Penile cellulitis/abscess/boil [SNOMED-CT: 947762498] Dr. Colleen Huang, DO 01-15-2017 DIABETES WITH RENAL MANIFESTATIONS TYPE II OR UNSPECIFIED TYPE NOT STATED UNCONTROLLED [SNOMED-CT: 893026368] Dr. Colleen Huang, DO 01-15-2017 Back pain [SNOMED-CT: 131389249] Dr. Colleen Huang, DO 11-06-2016 DIABETES WITH RENAL MANIFESTATIONS TYPE II OR UNSPECIFIED TYPE NOT STATED UNCONTROLLED [SNOMED-CT: 208974753] Dr. Colleen Huang, DO 11-06-2016 UNSPECIFIED ESSENTIAL HYPERTENSION [SNOMED-CT: 2199097 0] N/A N/A 11-06-2016 Bronchospasm [SNOMED-CT: 7412406] Dr Joe Huang, DO 09-04-2016 Back pain [SNOMED-CT: 460894747] Dr. Colleen Huang, DO 09-04-2016 Primary atypical interstitial pneumonia [SNOMED-CT: 35 483581] Dr. Colleen Huang, DO 09-04-2016 Back pain [SNOMED-CT: 361714829] Dr. Colleen Huang, DO 07-10-2016 DIABETES WITH RENAL MANIFESTATIONS TYPE II OR UNSPECIFIED TYPE NOT STATED UNCONTROLLED [SNOMED-CT: 774116145] Dr. Colleen Huang, DO 07-10-2016 Back pain [SNOMED-CT: 035850347] Dr. Colleen Huang, DO 05-15-2016 CHRONIC KIDNEY DISEASE STAGE II (MILD) [SNOMED-CT: 431 767821] Dr. Colleen Huang, DO 05-15-2016 DIABETES WITH RENAL MANIFESTATIONS TYPE II OR UNSPECIFIED TYPE NOT STATED UNCONTROLLED [SNOMED-CT: 555744529] Dr. Colleen Huang, DO 05-15-2016 LUMBAGO [SNOMED-CT: 032463362] Jose Angel Huang, DO 05-15-2016 Other specified vaccination [ICD10: Z23] Celestine Huang, DO 05-15-2016 Back pain [SNOMED-CT: 303600895] Dr. Colleen Huang, DO 03-18-2016 DIABETES WITH RENAL MANIFESTATIONS TYPE II OR UNSPECIFIED TYPE NOT STATED UNCONTROLLED [SNOMED-CT: 365225212] Dr. Colleen Huang, DO 03-18-2016 DIABETES WITH RENAL MANIFESTATIONS TYPE II OR UNSPECIFIED TYPE NOT STATED UNCONTROLLED [SNOMED-CT: 175371431] Dr. Colleen Huang, DO 01-22-2016 Exogenous hyperlipidemia [SNOMED-CT: 530449795] Dr. Colleen Huang, DO 01-22-2016 ANXIETY STATE UNSPECIFIED [SNOMED-CT: 627772292] Celestine Huang, DO 01-22-2016 DIABETES WITH RENAL MANIFESTATIONS TYPE II OR UNSPECIFIED TYPE NOT STATED UNCONTROLLED [SNOMED-CT: 718480730] Dr. Colleen Huang, DO 12-15-2015 Otitis externa [SNOMED-CT: 8820628] Cleestine Huang, DO 12-15-2015 Impacted cerumen [SNOMED-CT: 83804018] Celestine Huang, DO 12-15-2015 DIABETES WITH RENAL MANIFESTATIONS TYPE II OR UNSPECIFIED TYPE NOT STATED UNCONTROLLED [SNOMED-CT: 735132961] Dr. Colleen Huang, DO 11-17-2015 Back pain [SNOMED-CT: 477391979] Dr. Colleen Huang, DO 11-17-2015 UNSPECIFIED SLEEP APNEA [SNOMED-CT: 31407600] Celestine Huang, DO 11-17-2015 UNSPECIFIED ESSENTIAL HYPERTENSION [SNOMED-CT: 4090516 0] N/A N/A 11-17-2015 ROUTINE GENERAL MEDICAL EXAMINATION AT A HEALTH CARE FACILITY [SNOMED-CT: 037418363] Celestine Huang, DO 09-27-2015 Back pain [SNOMED-CT: 774154332] Dr. Colleen Huang, DO 08-11-2015 Dysuria-frequency syndrome [SNOMED-CT: 3272754] Dr. Colleen Huang, DO 08-11-2015 LUMBAGO [SNOMED-CT: 571379766] Jose Angel unger Reina Huang, DO 06-19-2015 CLOSED FRACTURE OF LUMBAR VERTEBRA WITHO UT SPINAL [SNOMED-CT: 98611785] Celestine Reina Huang, DO 06-19-2015 DIABETES WITH RENAL MANIFESTATIONS TYPE II OR UNSPECIFIED TYPE NOT STATED UNCONTROLLED [SNOMED-CT: 417377398] Dr. Colleen Huang, DO 06-19-2015 DIABETES WITH RENAL MANIFESTATIONS TYPE II OR UNSPECIFIED TYPE NOT STATED UNCONTROLLED [SNOMED-CT: 008577874] Dr. Colleen Huang, DO 04-26-2015 Back pain [SNOMED-CT: 035345335] Dr. Colleen Huang, DO 04-26-2015 Other constipation [ICD9: 564.09] Dr Joe Huang, DO 01-18-2015 Back pain [SNOMED-CT: 371919916] Dr. Colleen Huang, DO 01-18-2015 DIABETES WITH RENAL MANIFESTATIONS TYPE II OR UNSPECIFIED TYPE NOT STATED UNCONTROLLED [SNOMED-CT: 378498887] Dr. Colleen Huang, DO 11-30-2014 CHRONIC KIDNEY DISEASE STAGE II (MILD) [SNOMED-CT: 431 124956] Dr. Colleen Huang, DO 11-30-2014 UNSPECIFIED ESSENTIAL HYPERTENSION [SNOMED-CT: 8636354 0] N/A N/A 11-30-2014 DIABETES WITH RENAL MANIFESTATIONS TYPE II OR UNSPECIFIED TYPE NOT STATED UNCONTROLLED [SNOMED-CT: 931659028] Dr. Colleen Huang, DO 10-19-2014 CHRONIC KIDNEY DISEASE STAGE II (MILD) [SNOMED-CT: 431 115382] Dr. Colleen Huang, DO 10-19-2014 DIABETES WITH RENAL MANIFESTATIONS TYPE II OR UNSPECIFIED TYPE NOT STATED UNCONTROLLED [SNOMED-CT: 518916083] Dr. Colleen Huang, DO 09-16-2014 DIABETES WITH RENAL MANIFESTATIONS TYPE II OR UNSPECIFIED TYPE NOT STATED UNCONTROLLED [SNOMED-CT: 420664350] Dr. Colleen Huang, DO 09-14-2014 CHRONIC KIDNEY DISEASE STAGE II (MILD) [SNOMED-CT: 431 918742] Dr. Colleen Huang, DO 09-14-2014 ROUTINE GENERAL MEDICAL EXAMINATION AT A HEALTH CARE FACILITY [SNOMED-CT: 216955967] eClestine Huang, DO 08-22-2014 Other specified vaccination [ICD10: Z23] Celestine Huang, DO 08-22-2014 DIABETES MELLITUS WITHOUT MENTION OF COM PLICATION [SNOMED-CT: 059614896] N/A N/A 05-09-2014 DIABETES MELLITUS WITHOUT MENTION OF COM PLICATION [SNOMED-CT: 795831049] Celestine Huang, DO 03-16-2014 Back pain [SNOMED-CT: 497153576] Dr. Colleen Huang, DO 03-16-2014 CONTACT DERMATITIS AND OTHER ECZEMA UNSP ECIFIED CA [SNOMED-CT: 293913421] N/A N/A 03-16-2014 UNSPECIFIED ESSENTIAL HYPERTENSION [SNOMED-CT: 0215249 0] N/A N/A 03-16-2014 DIABETES MELLITUS WITHOUT MENTION OF COM PLICATION [SNOMED-CT: 361053852] Celestine Huang, DO 11-05-2013 Back pain [SNOMED-CT: 525432052] Dr. Colleen Huang, DO 11-05-2013 CLOSED FRACTURE OF LUMBAR VERTEBRA WITHO UT SPINAL [SNOMED-CT: 63265955] Celestine Huang, DO 11-05-2013 ANXIETY STATE UNSPECIFIED [SNOMED-CT: 366885726] Celestine Huang, DO 11-05-2013 DIABETES MELLITUS WITHOUT MENTION OF COM PLICATION [SNOMED-CT: 224363452] Celestine Huang, DO 06-11-2013 UNSPECIFIED ESSENTIAL HYPERTENSION [SNOMED-CT: 1455198 0] N/A N/A 06-11-2013 INSOMNIA UNSPECIFIED [SNOMED-CT: 959382670] Dr. Colleen Huang, DO 06-09-2013 ANXIETY STATE UNSPECIFIED [SNOMED-CT: 157057192] Celestine Huang, DO 06-09-2013 DIABETES MELLITUS WITHOUT MENTION OF COM PLICATION [SNOMED-CT: 576512567] Celestine Begumard, DO 02-17-2013 HYPERPLASIA OF PROSTATE UNSPECIFIED WITH OUT URINAR [SNOMED-CT: 518210182] Celestine Begumard, DO 02-17-2013 CLOSED FRACTURE OF LUMBAR VERTEBRA WITHO UT SPINAL [SNOMED-CT: 56595936] Celestine Huang, DO 02-17-2013 UNSPECIFIED ESSENTIAL HYPERTENSION [SNOMED-CT: 5838499 0] N/A N/A 02-17-2013 ROUTINE GENERAL MEDICAL EXAMINATION AT A HEALTH CARE FACILITY [SNOMED-CT: 484809098] Celestine Huang, DO 11-02-2012 DIABETES MELLITUS WITHOUT MENTION OF COM PLICATION [SNOMED-CT: 363573856] Celestine Huang, DO 08-28-2012 LUMBAGO [SNOMED-CT: 586449763] Jose Angel Macias Chantal Reina, DO 08-05-2012 DIABETES MELLITUS WITHOUT MENTION OF COM PLICATION [SNOMED-CT: 777335330] Celestine Macias Chantal Genoa, DO 08-05-2012 UNSPECIFIED ESSENTIAL HYPERTENSION [SNOMED-CT: 5912600 0] N/A N/A 08-05-2012 DIABETES MELLITUS WITHOUT MENTION OF COM PLICATION [SNOMED-CT: 804116539] Celestine Cornejo Reina, DO 02-26-2012 LUMBAGO [SNOMED-CT: 012918754] Jose Angel Macias Chantal Genoa, DO 02-26-2012 UNSPECIFIED ESSENTIAL HYPERTENSION [SNOMED-CT: 9791544 0] N/A N/A 02-26-2012 DIABETES MELLITUS WITHOUT MENTION OF COM PLICATION [SNOMED-CT: 441008292] Celestine Macias Chantal Genoa, DO 10-23-2011 LUMBAGO [SNOMED-CT: 796830523] Jose Angel Macias Chantal Genoa, DO 10-23-2011 PAIN IN JOINT INVOLVING SHOULDER REGION [SNOMED-CT: 774970666] Celestine Huang, DO 08-21-2011 DIABETES MELLITUS WITHOUT MENTION OF COM PLICATION [SNOMED-CT: 925990174] Celestine Huang, DO 08-21-2011 HYPERPLASIA OF PROSTATE UNSPECIFIED WITH OUT URINAR [SNOMED-CT: 471551049] Celestine Huang, DO 08-21-2011 UNSPECIFIED ESSENTIAL HYPERTENSION [SNOMED-CT: 6200205 0] N/A N/A 08-21-2011 Other specified vaccination [ICD10: Z23] Celestine Huang, DO 08-21-2011 PAIN IN JOINT INVOLVING SHOULDER REGION [SNOMED-CT: 502783540] Celestine Huang, DO 06-19-2011 DIABETES MELLITUS WITHOUT MENTION OF COM PLICATION [SNOMED-CT: 935478024] Celestine Huang, DO 06-19-2011 HYPERPLASIA OF PROSTATE UNSPECIFIED WITH OUT URINAR [SNOMED-CT: 694085212] Celestine Huang, DO 06-19-2011 UNSPECIFIED ESSENTIAL HYPERTENSION [SNOMED-CT: 4319735 0] N/A N/A 06-19-2011 Other specified vaccination [ICD10: Z23] Celestine Huang, DO 06-19-2011 PAIN IN JOINT INVOLVING SHOULDER REGION [SNOMED-CT: 486194101] Celestine Huang, DO 03-08-2011 DIABETES MELLITUS WITHOUT MENTION OF COM PLICATION [SNOMED-CT: 556042253] Celestine Huang, DO 03-08-2011 HYPERPLASIA OF PROSTATE UNSPECIFIED WITH OUT URINAR [SNOMED-CT: 712369755] Celestine Huang, DO 03-08-2011 UNSPECIFIED ESSENTIAL HYPERTENSION [SNOMED-CT: 5989986 0] N/A N/A 03-08-2011 PAIN IN JOINT INVOLVING SHOULDER REGION [SNOMED-CT: 468439648] Celestine Huang, DO 12-26-2010 DIABETES MELLITUS WITHOUT MENTION OF COM PLICATION [SNOMED-CT: 066244549] Celestine Huang, DO 12-26-2010 HYPERPLASIA OF PROSTATE UNSPECIFIED WITH OUT URINAR [SNOMED-CT: 703213516] Celestine Huang, DO 12-26-2010 UNSPECIFIED ESSENTIAL HYPERTENSION [SNOMED-CT: 9594710 0] N/A N/A 12-26-2010 Back pain [SNOMED-CT: 867251288] Dr. Colleen Huang, DO 12-14-2010 CLOSED FRACTURE OF LUMBAR VERTEBRA WITHO UT SPINAL [SNOMED-CT: 04429933] Celestine Huang, DO 12-14-2010 DIABETES MELLITUS WITHOUT MENTION OF COM PLICATION [SNOMED-CT: 446444869] Celestine Huang, DO 09-24-2010 CLOSED FRACTURE OF LUMBAR VERTEBRA WITHO UT SPINAL [SNOMED-CT: 82392713] Celestine Huang, DO 09-24-2010 UNSPECIFIED ESSENTIAL HYPERTENSION [SNOMED-CT: 9201006 0] N/A N/A 09-24-2010 DIABETES MELLITUS WITHOUT MENTION OF COM PLICATION [SNOMED-CT: 208420219] Celestine Huang, DO 08-29-2010 CLOSED FRACTURE OF LUMBAR VERTEBRA WITHO UT SPINAL [SNOMED-CT: 14466296] Celestine Huang, DO 08-29-2010 UNSPECIFIED ESSENTIAL HYPERTENSION [SNOMED-CT: 4645538 0] N/A N/A 08-29-2010 DIABETES MELLITUS WITHOUT MENTION OF COM PLICATION [SNOMED-CT: 357360771] Celestine Huang, DO 06-27-2010 CLOSED FRACTURE OF LUMBAR VERTEBRA WITHO UT SPINAL [SNOMED-CT: 18366894] Celestine Huang, DO 06-27-2010 UNSPECIFIED ESSENTIAL HYPERTENSION [SNOMED-CT: 6125720 0] N/A N/A 06-27-2010 CLOSED FRACTURE OF LUMBAR VERTEBRA WITHO UT SPINAL [SNOMED-CT: 85746101] Celestine Huang, DO 06-13-2010 DIABETES MELLITUS WITHOUT MENTION OF COM PLICATION [SNOMED-CT: 134941933] Celestine Huang, DO 03-23-2010 IMPOTENCE OF ORGANIC ORIGIN [SNOMED-CT: 049082564] N/A N/A 03-23-2010 UNSPECIFIED ESSENTIAL HYPERTENSION [SNOMED-CT: 8222417 0] N/A N/A 03-23-2010 UNSPECIFIED CATARACT [SNOMED-CT: 693528116] Celestine Huang, DO 01-26-2010 DIABETES MELLITUS WITHOUT MENTION OF COM PLICATION [SNOMED-CT: 558693031] Celestine Huang, DO 01-26-2010 UNSPECIFIED SLEEP APNEA [SNOMED-CT: 54062257] Celestine Huang, DO 01-26-2010 UNSPECIFIED ESSENTIAL HYPERTENSION [SNOMED-CT: 6851446 0] N/A N/A 01-26-2010 UNSPECIFIED DISORDER OF SKIN AND SUBCUTA NEOUS TISS [SNOMED-CT: 43362985] Celestine Huang, DO 01-26-2010 IMPOTENCE OF ORGANIC ORIGIN [SNOMED-CT: 081659338] N/A N/A 01-26-2010 DIABETES MELLITUS WITHOUT MENTION OF COM PLICATION [SNOMED-CT: 346189712] Celestine Huang, DO 12-20-2009 UNSPECIFIED ESSENTIAL HYPERTENSION [SNOMED-CT: 7173976 0] N/A N/A 12-20-2009 HYPERPLASIA OF PROSTATE UNSPECIFIED WITH OUT URINAR [SNOMED-CT: 408612466] Celestine Huang, DO 12-20-2009 UNSPECIFIED DISORDER OF SKIN AND SUBCUTA NEOUS TISS [SNOMED-CT: 97406526] Celestine Huang, DO 12-20-2009 IMPOTENCE OF ORGANIC ORIGIN [SNOMED-CT: 292733014] N/A N/A 12-20-2009 DIABETES MELLITUS WITHOUT MENTION OF COM PLICATION [SNOMED-CT: 286641700] N/A N/A 09-18-2009 UNSPECIFIED ESSENTIAL HYPERTENSION [SNOMED-CT: 5841004 0] N/A N/A 09-18-2009 IMPOTENCE OF ORGANIC ORIGIN [SNOMED-CT: 113790954] N/A N/A 09-18-2009 DIABETES MELLITUS WITHOUT MENTION OF COM PLICATION [SNOMED-CT: 579997532] N/A N/A 06-28-2009 DIABETES MELLITUS WITHOUT MENTION OF COM PLICATION [SNOMED-CT: 776935415] N/A N/A 06-16-2009 UNSPECIFIED ESSENTIAL HYPERTENSION [SNOMED-CT: 2935178 0] N/A N/A 06-16-2009 CONTACT DERMATITIS AND OTHER ECZEMA UNSP ECIFIED CA [SNOMED-CT: 694876826] N/A N/A 06-16-2009 ALLERGIES AND ADVERSE REACTIONS [...] sliding scale insulin dose 360 08/28/2020 Active hydrOXYzine hydrochloride 25 mg oral tablet, [RxNorm: 230489] hydrOXYzine one po bid prn and two po at hs 60 08/15/2020 Active atorvastatin 10 mg oral tablet, [RxNorm: 919318] atorvastatin one po hs daily 0 08/14/2020 Active metFORMIN 500 mg oral tablet, [RxNorm: 008125] metFORMIN one po bid 08/14/2020 Active HumaLOG 100 units/mL injectable solution, [RxNorm: 865 098] insulin lispro 6 units this am for sugar of 220....he h as a sliding scale 0 08/14/2020 Active Diflucan 150 mg oral tablet, [RxNorm: 367340] fluconazole one po now and repeat in 5 days 2 05/30/2020 Active Lotrisone 1%-0.05% topical cream, [RxNorm: 311711] clotrimazole-betamethasone dipropionate topic use as directed apply to genital area bid 30 05/30/2020 Active sertraline 100 mg oral tablet, [RxNorm: 325127] sertraline two po daily 180 019 Active lisinopril 10 mg oral tablet, [RxNorm: 428353] lisinopril one po daily 90 08/13/20 19 Active Linzess 145 mcg oral capsule, [RxNorm: 8138418] linaclotide one po daily prn constipation 90 08/13/2019 Active BD Pen Needle Mini U/F Unknown use as directed for lantus injection 200 2018 Active ibuprofen 800 mg oral tablet, [RxNorm: 868639] ibuprofen one po tid with food 90 06/23/2019 Active Lantus Solostar Pen 100 units/mL subcuta neous solution, [RxNorm: 881867] insulin glargine 14 units sq daily 15 12/18/2018 Active ProAir HFA 90 mcg/inh inhalation aerosol, [RxNorm: 745 752] albuterol two puffs qid prn wheeze 0 06/02/2017 Active Cortisporin-TC otic suspension, [RxNorm: 380606] colistin/neomycin/thonzonium/HC otic 4 gtts into left EAC bid 5 12/15/2015 Active aspirin 81 mg oral tablet, [RxNorm: 154799] aspirin one daily 1 11/17/2015 Active INSURANCE PROVIDERS Payer Name Policy Type P olicy ID Covered [employer] ID Policy [employer] MEDIC[employer] Health Insurance [id number] [facility] [id number] [facility] # Unspecified injury of right shoulder and upper arm (S49.91XA):# Type II diabetes mellitus poorly controlled (E11.65): PROBLEMS Problem Problem Status D ate Started Date Resolved Date Inactivated CLOSED FRACTURE OF LUMBAR VERTEBRA WITHO UT SPINAL [SNOMED-CT: 26844010] Active 06-13-2010 NA NA Type II diabetes mellitus poorly control led [SNOMED-CT: 525399951] Active 03-22-2020 NA NA Allergic contact dermatitis of male melissa isamar [SNOMED-CT: 100395703] Active 03-07-2017 NA NA Other genital problems [ICD10: R68.89] Active 03-07-2017 NA NA ROUTINE GENERAL MEDICAL EXAMINATION AT A HEALTH CARE FACILITY [SNOMED-CT: 377860689] Active 11-02-2012 NA NA Other specified vaccination [ICD10: Z23] Active 05-15-2016 NA NA DIABETES MELLITUS WITHOUT MENTION OF COM PLICATION [SNOMED-CT: 314421715] Active 12-20-2009 NA NA HYPERPLASIA OF PROSTATE UNSPECIFIED WITH OUT URINAR [SNOMED-CT: 495740183] Active 12-20-2009 NA NA UNSPECIFIED DISORDER OF SKIN AND SUBCUTA NEOUS TISS [SNOMED-CT: 58845543] Active 12-20-2009 NA NA Balanitis [SNOMED-CT: 87967162] Active 05-30-2020 NA NA Bronchospasm [SNOMED-CT: 9137884] Active 09-04-2016 NA NA Generalised itching [SNOMED-CT: 902934244] Active 08-15-2020 NA NA Other hyperlipidemia [ICD10: E78.49] Activ e 07-20-2018 NA NA Penile cellulitis/abscess/boil [SNOMED-CT: 949043956] Active 01-15-2017 NA NA Other constipation [ICD9: 564.09] Active 01-18-2015 NA NA UNSPECIFIED CATARACT [SNOMED-CT: 905598567] Active 01-26-2010 NA NA UNSPECIFIED SLEEP APNEA [SNOMED-CT: 48517468] Active 01-26-2010 NA NA Chronic kidney disease [SNOMED-CT: 246304731] Active 08-23-2020 NA NA Unspecified injury of right shoulder and upper arm [ICD10: S49.91XA] Active 09-26-2020 NA NA Acute pancreatitis [SNOMED-CT: 194396331] Active 08-14-2020 NA NA Contusion of lower back and pelvis, init ial encounter [ICD10: S30.0XXA] Active 12-14-2018 NA NA Exogenous hyperlipidemia [SNOMED-CT: 756112124] Active 09-27-2015 NA NA Otitis externa [SNOMED-CT: 7198717] Active 12-15-2015 NA NA Impacted cerumen [SNOMED-CT: 73605321] Active 12-15-2015 NA NA INSOMNIA UNSPECIFIED [SNOMED-CT: 804224937] Active 06-09-2013 NA NA ANXIETY STATE UNSPECIFIED [SNOMED-CT: 491213836] Active 06-09-2013 NA NA NEED FOR PROPHYLACTIC VACCINATION AND IN OCULATION AGAINST INFLUENZA [SNOMED-CT: 081363789] Active 06-19-2011 NA NA Primary atypical interstitial pneumonia [SNOMED-CT: 35 366289] Active 09-04-2016 NA NA Viral gastroenteritis [SNOMED-CT: 145262738] Active 12-26-2017 NA NA Cat bite - wound [SNOMED-CT: 107767488] Active 12-26-2017 NA NA Cat bite [SNOMED-CT: 037618640] Active 12-26-2017 NA NA Cat bite [SNOMED-CT: 058434794] Active 12-26-2017 NA NA Emotional stress [SNOMED-CT: 328781902] Active 08-30-2020 NA NA Nausea and vomiting [SNOMED-CT: 34674370] Active 09-15-2020 NA NA BACKACHE UNSPECIFIED [SNOMED-CT: 326819757] Active 12-14-2010 NA NA PAIN IN JOINT INVOLVING SHOULDER REGION [SNOMED-CT: 366665372] Active 12-26-2010 NA NA DIABETES MELLITUS WITHOUT MENTION OF COM PLICATION [SNOMED-CT: 457235414] Active 05-19-2009 NA NA UNSPECIFIED ESSENTIAL HYPERTENSION [SNOMED-CT: 1034503 0] Active 05-19-2009 NA NA CONTACT DERMATITIS AND OTHER ECZEMA UNSP ECIFIED CA [SNOMED-CT: 731256184] Active 05-19-2009 NA NA Acute rhinosinusitis [SNOMED-CT: 127653921] Active 09-08-2019 NA NA Upper respiratory infection [SNOMED-CT: 00243079] Active 09-08-2019 NA NA LUMBAGO [SNOMED-CT: 938034129] Active 10-23-2011 NA NA SPRAIN OF UNSPECIFIED SITE OF SHOULDER A ND UPPER A [SNOMED-CT: 851570664] Active 06-28-2009 NA NA Back pain [SNOMED-CT: 545598827] Active 08-11-2015 NA NA Dysuria-frequency syndrome [SNOMED-CT: 8869930] Active 08-11-2015 NA NA Thyroiditis [SNOMED-CT: 02932705] Active 08-23-2020 NA NA Arthropathy of left shoulder [SNOMED-CT: 9863361454859 9103] Active 06-03-2018 NA NA Pain in left foot [SNOMED-CT: 613456979055906] Active 06-18-2019 NA NA DIABETES WITH RENAL MANIFESTATIONS TYPE II OR UNSPECIFIED TYPE NOT STATED UNCONTROLLED [SNOMED-CT: 768193258] Active 09-14-2014 NA NA CHRONIC KIDNEY DISEASE STAGE II (MILD) [SNOMED-CT: 431 310342] Active 09-14-2014 NA NA IMPOTENCE OF ORGANIC ORIGIN [SNOMED-CT: 993800467] Active 09-18-2009 NA NA PROCEDURES Procedure Date CPT Code Procedure 09/26/2020 10:41:47 [id number] Telephone evaluation and management service by a physician or other qualified health managed care manager who may report evaluation and management services provided to an established patient, parent, or guardian not originating from a related E/M service provided within the previous 7 days nor leading to an E/M service or procedure within the next 24 hours or soonest available appointment; 11-20 minutes of medical discussion 09/15/2020 12:51:28 [id number] Telephone evaluation and management service by a physician or other qualified health managed care manager who may report evaluation and management services provided to an established patient, parent, or guardian not originating from a related E/M service provided within the previous 7 days nor leading to an E/M service or procedure within the next 24 hours or soonest available appointment; 5-10 minutes of medical discussion 08/30/2020 08:24:51 15671 Telephone evaluation and management service by a physician or other qualified health managed care manager who may report evaluation and management services provided to an established patient, parent, or guardian not originating from a related E/M service provided within the previous 7 days nor leading to an E/M service or procedure within the next 24 hours or soonest available appointment; 5-10 minutes of medical discussion 08/23/2020 09:37:34 21493 Telephone evaluation and management service by a physician or other qualified health managed care manager who may report evaluation and management services provided to an established patient, parent, or guardian not originating from a related E/M service provided within the previous 7 days nor leading to an E/M service or procedure within the next 24 hours or soonest available appointment; 5-10 minutes of medical discussion 08/15/2020 08:57:07 46370 Office or other outpatient visit for the [...] moderate severity. Physicians typically spend 15 minutes rqes-yy-skja with the patient and/or family. 08/14/2020 09:42:50 05600 Transitional Care Management Services with the following required elements: Communication (direct contact, telephone, electronic) with the patient and/or caregiver within 2 business days of discharge Medical decision making of high complexity during the service period Rtxh-ve-bghr visit, within 7 calendar days of discharge 08/14/2020 09:42:50 G8427 Eligible clinician attests to documenting in the medical record they obtained, updated, or reviewed the patient's current medications 05/30/2020 13:09:49 66691 Office or other outpatient visit for the [...] moderate severity. Physicians typically spend 15 minutes lqgm-ep-lscr with the patient and/or family. 03/22/2020 09:10:00 09852 Office or other outpatient visit for the [...] moderate severity. Physicians typically spend 15 minutes iaqb-dt-urat with the patient and/or family. 03/15/2020 12:24:05 50232 Office or other outpatient visit for the evaluation and management of an established patient, that may not require the presence of a physician. Usually, the presenting problem(s) are minimal. Typically, 5 minutes are spent performing or supervising these services. 03/15/2020 12:24:05 72738 Hemoglobin; glycosylated (A1C) by device cleared by FDA for home use 03/15/2020 12:24:05 3046F Most recent hemoglobin A1c level greater than 9.0% (DM) 09/08/2019 08:19:29 34231 Office or other outpatient visit for the [...] high severity. Physicians typically spend 25 minutes zxic-gw-wxuy with the patient and/or family. 09/08/2019 08:19:29 62065 Hemoglobin; glycosylated (A1C) by device cleared by FDA for home use 09/08/2019 08:19:29 3045F Most recent hemoglobin A1c (HbA1c) level 7.0-9.0% (DM) 08/13/2019 13:55:58 G0439 ANNUAL WELLNESS VISIT, SUBSEQUENT 08/13/2019 13:55:58 85331 Hemoglobin; glycosylated (A1C) by device cleared by FDA for home use 08/13/2019 13:55:58 74461 Influenza virus vaccine, quadrivalent (ccIIV4), derived from cell cultures, subunit, preservative and antibiotic free, 0.5 mL dosage, for intramuscular use 08/13/2019 13:55:58 G0008 ADMINISTRATION OF FLU VACCINE (V04.81) 08/13/2019 13:55:58 Dilated retinal eye exam with interpretation by an customs brokerage agent or wood box maker documented and reviewed (DM) 08/13/2019 13:55:58 G8427 Eligible clinician attests to documenting in the medical record they obtained, updated, or reviewed the patient's current medications 08/13/2019 13:55:58 3017F Colorectal cancer screening results documented and reviewed (PV) 08/13/2019 13:55:58 1036F Current tobacco non-user (CAD, CAP, COPD, PV) (DM) (IBD) 06/18/2019 09:23:34 37137 Office or other outpatient visit for the [...] high severity. Physicians typically spend 25 minutes ntup-jl-hbtx with the patient and/or family. 06/18/2019 09:23:34 21909 Hemoglobin; glycosylated (A1C) by device cleared by FDA for home use 06/18/2019 09:23:34 3045F Most recent hemoglobin A1c (HbA1c) level 7.0-9.0% (DM) 03/24/2019 08:14:04 08153 Office or other outpatient visit for the [...] high severity. Physicians typically spend 25 minutes fgrq-wj-txrl with the patient and/or family. 03/24/2019 08:14:04 01214 Hemoglobin; glycosylated (A1C) by device cleared by FDA for home use 03/24/2019 08:14:04 3045F Most recent hemoglobin A1c (HbA1c) level 7.0-9.0% (DM) 03/24/2019 08:14:04 G8427 Eligible clinician attests to documenting in the medical record they obtained, updated, or reviewed the patient's current medications 03/23/2019 11:45:37 3017F Colorectal cancer screening results documented and reviewed (PV) 12/14/2018 08:01:40 09519 Office or other outpatient visit for the [...] high severity. Physicians typically spend 25 minutes jbqq-xj-llsu with the patient and/or family. 12/14/2018 08:01:40 48588 Collection of venous blood by venipuncture 12/14/2018 08:01:40 53751 Hemoglobin; glycosylated (A1C) by device cleared by FDA for home use 12/14/2018 08:01:40 3046F Most recent hemoglobin A1c level greater than 9.0% (DM) 12/14/2018 08:01:40 G8427 Eligible clinician attests to documenting in the medical record they obtained, updated, or reviewed the patient's current medications 09/07/2018 08:17:34 47426 Office or other outpatient visit for the evaluation and management of an established patient, that may not require the presence of a physician. Usually, the presenting problem(s) are minimal. Typically, 5 minutes are spent performing or supervising these services. 09/07/2018 08:17:34 70419 Hemoglobin; glycosylated (A1C) by device cleared by FDA for home use 09/07/2018 08:17:34 3044F Most recent hemoglobin A1c (HbA1c) level less than 7.0% (DM) 07/20/2018 13:54:05 98298 Periodic comprehensive preventive medicine reevaluation and management of an individual including an age and gender appropriate history, examination, counseling/anticipatory guidance/risk factor reduction interventions, and the ordering of laboratory/diagnostic procedures, established patient; 65 years and older 07/20/2018 13:54:05 49586 Hemoglobin; glycosylated (A1C) by device cleared by FDA for home use 07/20/2018 13:54:05 G8427 Eligible clinician attests to documenting in the medical record they obtained, updated, or reviewed the patient's current medications 07/20/2018 13:54:05 1036F Current tobacco non-user (CAD, CAP, COPD, PV) (DM) (IBD) 07/20/2018 13:54:05 3044F Most recent hemoglobin A1c (HbA1c) level less than 7.0% (DM) 06/03/2018 08:23:02 09394 Office or other outpatient visit for the [...] high severity. Physicians typically spend 25 minutes ndyu-bm-zkyz with the patient and/or family. 06/03/2018 08:23:02 25101 Hemoglobin; glycosylated (A1C) by device cleared by FDA for home use 06/03/2018 08:23:02 3045F Most recent hemoglobin A1c (HbA1c) level 7.0-9.0% (DM) 03/27/2018 08:56:44 48234 Office or other outpatient visit for the [...] moderate severity. Physicians typically spend 15 minutes sxix-kh-cgno with the patient and/or family. 03/27/2018 08:56:44 3045F Most recent hemoglobin A1c (HbA1c) level 7.0-9.0% (DM) 03/27/2018 08:56:44 05701 Hemoglobin; glycosylated (A1C) by device cleared by FDA for home use 03/27/2018 08:56:44 G8427 Eligible clinician attests to documenting in the medical record they obtained, updated, or reviewed the patient's current medications 12/26/2017 08:55:27 30329 Office or other outpatient visit for the [...] high severity. Physicians typically spend 25 minutes mift-om-mrjt with the patient and/or family. 12/26/2017 08:55:27 3045F Most recent hemoglobin A1c (HbA1c) level 7.0-9.0% (DM) 12/26/2017 08:55:27 70340 Hemoglobin; glycosylated (A1C) by device cleared by FDA for home use 12/26/2017 08:55:27 1036F Current tobacco non-user (CAD, CAP, COPD, PV) (DM) (IBD) 12/26/2017 08:55:27 G8427 Eligible clinician attests to documenting in the medical record they obtained, updated, or reviewed the patient's current medications 12/26/2017 08:55:27 2021F Dilated retinal eye exam with interpretation by an customs brokerage agent or wood box maker documented and reviewed (DM) 09/24/2017 08:27:29 04993 Office or other outpatient visit for the [...] high severity. Physicians typically spend 25 minutes uxnv-eb-fjbh with the patient and/or family. 09/24/2017 08:27:29 19609 Hemoglobin; glycosylated (A1C) by device cleared by FDA for home use 09/24/2017 08:27:29 3045F Most recent hemoglobin A1c (HbA1c) level 7.0-9.0% (DM) 09/24/2017 08:27:29 1036F Current tobacco non-user (CAD, CAP, COPD, PV) (DM) (IBD) 06/02/2017 08:22:37 43950 Periodic comprehensive preventive medicine reevaluation and management [...] CAP, COPD, PV) (DM) (IBD) 06/02/2017 08:22:37 68048 Hemoglobin; glycosylated (A1C) by device cleared by FDA for home use 03/07/2017 09:18:02 49819 Office or other outpatient visit for the [...] high severity. Physicians typically spend 25 minutes bkbp-jc-hyry with the patient and/or family. 03/07/2017 09:18:02 50812 Hemoglobin; glycosylated (A1C) by device cleared by FDA for home use 01/15/2017 08:13:41 15387 Office or other outpatient visit for the [...] high severity. Physicians typically spend 25 minutes yqwj-bx-zxha with the patient and/or family. 11/11/2016 09:37:13 65186 Hemoglobin; glycosylated (A1C) by device cleared by FDA for home use 11/06/2016 08:26:32 73171 Office or other outpatient visit for the [...] moderate severity. Physicians typically spend 15 minutes txqm-nu-qgsa with the patient and/or family. 09/04/2016 09:23:52 29995 Office or other outpatient visit for the [...] moderate severity. Physicians typically spend 15 minutes brxz-gh-onla with the patient and/or family. 07/10/2016 08:21:01 05137 Office or other outpatient visit for the [...] high severity. Physicians typically spend 25 minutes yldh-cz-gamf with the patient and/or family. 07/10/2016 08:21:01 48609 Hemoglobin; glycosylated (A1C) by device cleared by FDA for home use 05/15/2016 08:27:09 94777 Office or other outpatient visit for the [...] moderate severity. Physicians typically spend 15 minutes skpb-vg-ejno with the patient and/or family. 05/15/2016 08:27:09 13440 Hemoglobin; glycosylated (A1C) by device cleared by FDA for home use 05/15/2016 08:27:09 G0008 ADMINISTRATION OF FLU VACCINE (V04.81) 05/15/2016 08:27:09 Q2037 FLUVRIN 03/18/2016 08:09:18 73216 Office or other outpatient visit for the [...] high severity. Physicians typically spend 25 minutes rpuy-fq-xmge with the patient and/or family. 01/22/2016 08:23:52 30166 Collection of venous blood by venipuncture 01/22/2016 08:23:52 57989 Office or other outpatient visit for the [...] high severity. Physicians typically spend 25 minutes qiwu-wu-suiw with the patient and/or family. 12/15/2015 12:17:35 37138 Removal impacted cerumen (separate procedure), 1 or both ears 12/15/2015 12:17:35 45286 Office or other outpatient visit for the [...] moderate severity. Physicians typically spend 15 minutes aqax-cq-dccv with the patient and/or family. 11/17/2015 08:15:21 22744 Collection of venous blood by venipuncture 11/17/2015 08:15:21 46263 Office or other outpatient visit for the [...] high severity. Physicians typically spend 40 minutes blit-ew-dyxq with the patient and/or family. 11/17/2015 08:15:21 23526 Hemoglobin; glycosylated (A1C) by device cleared by FDA for home use 09/27/2015 08:29:20 45540 Periodic comprehensive preventive medicine reevaluation and management of an individual including an age and gender appropriate history, examination, counseling/anticipatory guidance/risk factor reduction interventions, and the ordering of laboratory/diagnostic procedures, established patient; 40-64 years 09/27/2015 08:29:20 46364 Collection of venous blood by venipuncture 09/27/2015 08:29:20 37699 Hemoglobin; glycosylated (A1C) by device cleared by FDA for home use 08/11/2015 08:14:29 03985 Office or other outpatient visit for the [...] moderate severity. Physicians typically spend 15 minutes ffrb-kh-crqf with the patient and/or family. 06/19/2015 08:27:11 40549 Office or other outpatient visit for the [...] moderate severity. Physicians typically spend 15 minutes iuti-dl-vplj with the patient and/or family. 04/26/2015 08:20:21 68961 Office or other outpatient visit for the [...] moderate severity. Physicians typically spend 15 minutes vfnv-hk-uxxn with the patient and/or family. 04/26/2015 08:20:21 56014 Hemoglobin; glycosylated (A1C) by device cleared by FDA for home use 01/18/2015 08:11:52 65587 Office or other outpatient visit for the [...] moderate severity. Physicians typically spend 15 minutes eqiz-qv-lgdy with the patient and/or family. 11/30/2014 08:15:54 37109 Office or other outpatient visit for the [...] high severity. Physicians typically spend 25 minutes iztd-rd-oqhs with the patient and/or family. 11/30/2014 08:15:54 79963 Collection of venous blood by venipuncture 11/30/2014 08:15:54 83406 Hemoglobin; glycosylated (A1C) by device cleared by FDA for home use 10/19/2014 00:00:00 80638 Collection of venous blood by venipuncture 10/19/2014 00:00:00 84358 Office or other outpatient visit for the [...] moderate severity. Physicians typically spend 15 minutes xfda-cj-ufud with the patient and/or family. 09/16/2014 00:00:00 51715 Office or other outpatient visit for the [...] moderate severity. Physicians typically spend 15 minutes bazg-ak-jetz with the patient and/or family. 09/14/2014 00:00:00 79438 Office or other outpatient visit for the [...] moderate severity. Physicians typically spend 15 minutes bglh-ic-mbck with the patient and/or family. 08/22/2014 15:40:11 35383 INFLUENZA VACCINATION 08/22/2014 15:40:11 50646 Periodic comprehensive preventive medicine reevaluation and management of an individual including an age and gender appropriate history, examination, counseling/anticipatory guidance/risk factor reduction interventions, and the ordering of laboratory/diagnostic procedures, established patient; 40-64 years 08/22/2014 15:40:11 46824 Collection of venous blood by venipuncture 08/22/2014 15:40:11 Q2037 FLUVRIN 05/09/2014 00:00:00 91270 Office or other outpatient visit for the [...] moderate severity. Physicians typically spend 15 minutes aaqg-hk-jzhq with the patient and/or family. 05/09/2014 00:00:00 19032 Hemoglobin; glycosylated (A1C) by device cleared by FDA for home use 03/16/2014 00:00:00 67114 Office or other outpatient visit for the [...] high severity. Physicians typically spend 25 minutes yhgl-ur-gcad with the patient and/or family. 03/16/2014 00:00:00 40097 Hemoglobin; glycosylated (A1C) by device cleared by FDA for home use 11/05/2013 00:00:00 78040 Office or other outpatient visit for the [...] moderate severity. Physicians typically spend 15 minutes irvd-bw-xaqx with the patient and/or family. 11/05/2013 00:00:00 86479 Collection of venous blood by venipuncture 11/05/2013 00:00:00 93132 Hemoglobin; glycosylated (A1C) by device cleared by FDA for home use 06/11/2013 00:00:00 54972 Periodic comprehensive preventive medicine reevaluation and management of an individual including an age and gender appropriate history, examination, counseling/anticipatory guidance/risk factor reduction interventions, and the ordering of laboratory/diagnostic procedures, established patient; 40-64 years 06/11/2013 00:00:00 86152 Hemoglobin; glycosylated (A1C) by device cleared by FDA for home use 06/09/2013 08:31:54 72840 Office or other outpatient visit for the [...] moderate severity. Physicians typically spend 15 minutes kryv-vf-qfkz with the patient and/or family. 02/17/2013 08:29:32 18634 Office or other outpatient visit for the [...] moderate severity. Physicians typically spend 15 minutes jvlu-ua-opsx with the patient and/or family. 02/17/2013 08:29:32 42706 Collection of venous blood by venipuncture 02/17/2013 08:29:32 21041 Hemoglobin; glycosylated (A1C) by device cleared by FDA for home use 11/02/2012 08:13:33 09194 Periodic comprehensive preventive medicine reevaluation and management of an individual including an age and gender appropriate history, examination, counseling/anticipatory guidance/risk factor reduction interventions, and the ordering of laboratory/diagnostic procedures, established patient; 40-64 years 11/02/2012 08:13:33 43084 Hemoglobin; glycosylated (A1C) by device cleared by FDA for home use 08/28/2012 08:54:25 55738 Office or other outpatient visit for the [...] moderate severity. Physicians typically spend 15 minutes sagg-ry-tooa with the patient and/or family. 08/05/2012 11:43:02 76786 Office or other outpatient visit for the [...] moderate severity. Physicians typically spend 15 minutes inqa-le-wggh with the patient and/or family. 08/05/2012 11:43:02 01147 Hemoglobin; glycosylated (A1C) by device cleared by FDA for home use 02/26/2012 08:27:00 71014 Collection of venous blood by venipuncture 02/26/2012 08:27:00 43850 Office or other outpatient visit for the [...] high severity. Physicians typically spend 25 minutes vavt-fp-hody with the patient and/or family. 10/23/2011 08:31:03 49344 Office or other outpatient visit for the [...] moderate severity. Physicians typically spend 15 minutes mpba-zb-eqgc with the patient and/or family. 10/23/2011 08:31:03 69643 Hemoglobin; glycosylated (A1C) by device cleared by FDA for home use 08/21/2011 08:26:48 93817 Collection of venous blood by venipuncture 08/21/2011 08:26:48 57797 Office or other outpatient visit for the [...] moderate severity. Physicians typically spend 15 minutes mcbn-ay-vmyj with the patient and/or family. 06/19/2011 08:43:09 07900 INFLUENZA VACCINATION 06/19/2011 08:43:09 81207 Collection of venous blood by venipuncture 06/19/2011 08:43:09 62357 Immunization administration (includes percutaneous, intradermal, subcutaneous, or intramuscular injections); one vaccine (single or combination vaccine/toxoid) 06/19/2011 08:43:09 69425 Office or other outpatient visit for the [...] high severity. Physicians typically spend 25 minutes wfvz-xs-fyat with the patient and/or family. 03/08/2011 08:41:01 71890 Office or other outpatient visit for the [...] high severity. Physicians typically spend 25 minutes imbw-mo-mtcw with the patient and/or family. 12/26/2010 08:18:16 64167 Collection of venous blood by venipuncture 12/26/2010 08:18:16 38911 Office or other outpatient visit for the [...] moderate severity. Physicians typically spend 15 minutes vqxq-lc-jsrh with the patient and/or family. 12/14/2010 08:19:33 02869 Office or other outpatient visit for the [...] high severity. Physicians typically spend 25 minutes ctgv-mp-kqkp with the patient and/or family. 09/24/2010 08:30:35 64103 Office or other outpatient visit for the [...] high severity. Physicians typically spend 25 minutes ivgo-qg-gpwi with the patient and/or family. 08/29/2010 00:00:00 53086 Office or other outpatient visit for the [...] high severity. Physicians typically spend 25 minutes lupb-oh-xjns with the patient and/or family. 06/27/2010 00:00:00 96046 Office or other outpatient visit for the [...] high severity. Physicians typically spend 25 minutes enyn-tc-xyzt with the patient and/or family. 06/27/2010 00:00:00 G8553 AT LEASTONE PRESCRIPTION CREATED DURING THE ENCOUNTER WAS GENERATED AND TRANSMITTED ELECTRONICALLY USING A QUALIFIED [facility] SYSTEM 06/27/2010 00:00:00 61020 Collection of venous blood by venipuncture 06/13/2010 00:00:00 21339 Office or other outpatient visit for the [...] moderate severity. Physicians typically spend 15 minutes ewvf-wd-dfix with the patient and/or family. 03/23/2010 00:00:00 79942 Office or other outpatient visit for the [...] high severity. Physicians typically spend 25 minutes qbtl-pm-gudz with the patient and/or family. 03/23/2010 00:00:00 61933 Collection of venous blood by venipuncture 01/26/2010 00:00:00 32639 Office or other outpatient visit for the [...] high severity. Physicians typically spend 25 minutes rvqt-up-qcop with the patient and/or family. 12/20/2009 00:00:00 74904 Collection of venous blood by venipuncture 12/20/2009 00:00:00 13222 Office or other outpatient visit for the [...] moderate severity. Physicians typically spend 15 minutes xtle-mi-dljp with the patient and/or family. 09/18/2009 00:00:00 57215 Office or other outpatient visit for the [...] high severity. Physicians typically spend 25 minutes oozv-ph-pmyo with the patient and/or family. 09/18/2009 00:00:00 43844 Collection of venous blood by venipuncture 06/28/2009 00:00:00 75798 Office or other outpatient visit for the [...] high severity. Physicians typically spend 25 minutes hren-vh-mgkn with the patient and/or family. 06/16/2009 00:00:00 72691 Office or other outpatient visit for the [...] high severity. Physicians typically spend 25 minutes slws-mt-aiir with the patient and/or family. 06/16/2009 00:00:00 52205 Blood, occult, by peroxidase activity (eg, guaiac), qualitative; feces, consecutive collected specimens with single determination, for colorectal neoplasm screening (ie, patient was provided 3 cards or single triple card for consecutive collection) 06/16/2009 00:00:00 48958 Collection of venous blood by venipuncture -- 05280 Collection of v enous blood by venipuncture REASON FOR REFERRAL No Reason for Referral information available. RESULTS Result Type Result Value Relevant Reference Range Interpretation Date TSH 3.887 uIU/mL 0.36-3. 74 H 08/30/2020 [...] CORPUSCULAR HEMOGLOBIN 30.5 pg 27.0- 33.0 No [facility] 10/25/2019 16:44:00 MEAN CORPUSCULAR HGB CONC 32.8 g/dl 32.0- 36.5 No [facility] 10/25/2019 16:44:00 RED CELL DISTRIBUTION WIDTH 13.2 % 11.5-14.5 No [facility] 10/25/2019 16:44:00 PLATELET COUNT, AUTOMATED 287 10 3/uL 150- 450 No [facility] 10/25/2019 16:44:00 NEUTROPHILS % 67.5 % 36. [...] 11:53:00 N/A Service Date and Time: 04/20/2016 1649 Technologist: Exam Requested: ECG WITH READING ER PHYS Reason for Patient Visit: CHEST PAIN Reason for Exam: Chest Pain Stationary ECG Study [facility] - ED Test Date: 2016-04-20 Pat Name: ESTRELLA MENDOZA Department: Room: - Gender: M Beam Doffer: : 1950 Requested By: Jung Sofia Order Number: [id number] Reading MD: Shira Otero Measurements Intervals Gorman Rate: 77 P: 68 W[place]: 152 QRS: -30 QRSD: 100 T: 44 QT: 384 QTc: 437 Interpretive Statements SINUS RHYTHM BORDERLINE LEFT AXIS DEVIATION LOW VOLTAGE LIMB NSTTW ABNORMALITY NO PRIOR FOR COMPARISON Electronically Signed On 04-21-2016 20:05:36 EDT by Shira Otero DD: PEDRO 04/20/20161311 DT: [place]ERETT 04/21/20162004 DS: PEDRO 04/21/20162004 The Following Link and Pin can be used to access images associated with this report: [email or web address] N/A N/A 04/20/2016 13:07:00 HEMOGLOBIN A1c [...] Observed Smoking Status Former smoker, [[facility] D-CT: [id number]], 75.00 pk yrs/20.00 yrs quit 11/30/2014 - 11/30/2014 TREATMENT PLAN Encounter Date Planned Care 09/26/2020 10:41:47 Alternate ice and heat and [...] Appointment scheduled for a telehealth visit to [facility] on 03/22/2020. 03/15/2020 12:24:05 HgA1c is 10.0% Appointment scheduled for a telehealth visit to [facility] on 03/22/2020. 10/25/2019 08:14:07 Plan printed [...] Given: 8.6% down from 9 the end june Counseling and coordination of [...] # 200, RF: 3. (Transmitted by Colleen Hunag, DO) PRESCRIBE: atorvastatin 10 mg oral tablet, [...] the Left Deltoid (Mfg: SEQIRUS lot no. [id number], expires 02/29/2020) ORDERED/ADVISED: Order Date 08-13-2019 - [...] 360, RF: 3. (Transmitted by Colleen Huang, ) [...] the Left Deltoid (Mfg: SEQIRUS lot no. [id number], expires 02/29/2020) ORDERED/ADVISED: Order Date 08-13-2019 - [...] 18, RF: 3. (Transmitted by Colleen Huang, ) PRESCRIBE: sertraline 100 mg oral tablet, two [...] RF: 3. (Transmitted by Colleen Huang, ) CHANGED Current Meds: Trulicity Pen 1.5 [...] the Left Deltoid (Mfg: SEQIRUS lot no. [id number], expires 02/29/2020) ORDERED/ADVISED: Order Date 08-13-2019 - [...] RF: 1. (Transmitted by Colleen Huang, ) New sneaker PROVIDED HM: CDSMP Given: "the obesity code", " the diabetes code", and "quide to fasting" by Flakito Estes MD You can download a [employer] melba to your computer and get these books on DigitalMR. Watch the movie "the magic pill" documentary on [employer] Flakito Estes [employer] and watch it Counseling and coordination of care: time a significant factor for this patient encounter...30minutes FT 06/18/2019 09:23:34 Plan printed and provided to patient: PRESCRIBE: ibuprofen 800 mg oral tablet, one po tid with food, # 90, RF: 1. (Transmitted by Colleen Huang DO) Barber christopher PROVIDED HM: CDSMP Given: "the obesity code", " the diabetes code", and "quide to fasting" by Flakito Estes MD You can download a sylvia melba to your computer and get these books on DigitalMR. Watch the movie "the magic pill" documentary on [employer] and watch it 06/18/2019 09:23:34 Plan printed [...] your computer and get these books on DigitalMR. Watch the movie "the magic pill" documentary on [employer] and watch it 03/24/2019 08:14:04 Plan printed and provided to patient: PROVIDED HM: CDSMP Given: "the obesity code", " the diabetes code", and "quide to fasting" by Flakito Estes MD You can download a sylvia melba to your [employer] for free. then you can go to [employer] and download books at a reduced jean. Watch the movie called "the magic pill" PROVIDED HM: Recommendations for Testing HgbA1C in Individuals with Diabetes Mellitus Given: 8.1% Counseling and coordination of care: time a significant factor for this patient encounter...35minutes FT 03/24/2019 08:14:04 Plan printed and provided to patient: PROVIDED HM: CDSMP Given: "the obesity code", " the diabetes code", and "quide to fasting" by Flakito Estes MD You can download a sylvia melba to your [employer] for free. then you can go to [employer] and download books at a reduced jean. [...] Flakito Estes MD You can download a [employer] melba to your iphone for free. then you can go to [employer] and download books at a reduced jean. [...] a significant factor for this patient encounter...25minutes FT 12/14/2018 08:01:40 PRESCRIBE: ibuprofen 800 mg oral tablet, one po tid with food, # 90, RF: 1. (Transmitted by Colleen Reina, DO) PRESCRIBE: BD [...] # 90, RF: 1. (Transmitted by Colleen Genoa, DO) PRESCRIBE: BD Pen Needle Mini U/F, use as directed for lantus injection, # 200, RF: 3. 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 (Transmitted by Risk I/Oard, [employer]) PRESCRIBE: sertraline 100 mg oral tablet, one po daily, # 90, RF: 3. (Transmitted by CellTran, [employer]) PRESCRIBE: metFORMIN 500 mg oral tablet, one po bid pc, # 180, RF: 3. (Trans mitted by ColleenEyeCytejoelle [employer]) PRESCRIBE: lisinopril 10 mg oral tablet, one po daily, # 90, RF: 3. (Transmitted by CellTran, [employer]) PRESCRIBE: Linzess 145 mcg oral capsule, one po daily prn constipation, # 90, RF: 3. (Transmitted by CellTran, [employer]) PRESCRIBE: atorvastatin 10 mg oral tablet, one po daily, # 90, RF: 3. (Transmitted by CellTran, [employer]) CHANGED Current Meds: Trulicity Pen 1.5 mg/0.5 mL subcutaneous solution REMOVED from Current Meds: Lantus Solostar Pen 100 units/mL subcutaneous solution, 14 units sq daily, # 5, RF: 0. (Transmitted by CellTran, [employer]) Date Prescribed: 06/26/2018 REMOVED from Current Meds: [...] directed, # 12, RF: 3. (Transmitted by Risk I/Oard, [employer]) PRESCRIBE: sertraline 100 mg oral tablet, one po daily, # 90, RF: 3. (Transmitted by Colleen Genoa, [employer]) PRESCRIBE: metFORMIN 500 mg oral tablet, one po bid pc, # 180, RF: 3. (Trans mitted by Colleen Huang DO) PRESCRIBE: lisinopril 10 mg oral tablet, one po daily, # 90, RF: 3. (Transmitted by Risk I/Oard, [employer]) PRESCRIBE: Linzess 145 mcg oral capsule, one po daily prn constipation, # 90, RF: 3. (Transmitted by ColleenEyeCytejoelle [employer]) PRESCRIBE: atorvastatin 10 mg oral tablet, one po daily, # 90, RF: 3. (Transmitted by Risk I/Ojoelle [employer]) CHANGED Current Meds: Trulicity Pen 1.5 mg/0.5 mL subcutaneous solution REMOVED from Current Meds: Lantus Solostar Pen 100 units/mL subcutaneous solution, 14 units sq daily, # 5, RF: 0. (Transmitted by Risk I/Oard, DO) Date Prescribed: 06/26/2018 REMOVED from Current [...] # 14, RF: 0. (Transmitted by Colleen ReinaDO joelle) Date Prescribed: 12/26/2017 Motion is lotion If [...] # 14, RF: 0. (Transmitted by Colleen ReinaDO joelle) Date Prescribed: 12/26/2017 Motion is lotion If it hurts don't do it. Ibuprofen or aleve PROVIDED HM: Screening for Lung Cancer Given: Quit 20 years 06/03/2018 08:23:02 Plan printed and provided to patient: REMOVED from Current Meds: Augmentin 875 mg-125 mg oral tablet, one po bid, # 14, RF: 0. (Transmitted by ColleenEyeCyteDO joelle) Date Prescribed: 12/26/2017 Motion is lotion If [...] # 4, RF: 5. (Transmitted by Colleen Reina, DO) when previous script is completed. PRESCRIBE: Trulicity Pen 0.75 mg/0.5 mL subcutaneous solution, inject 0.75mg sq weekly for 4 weeks and then go to higher dose, # 4, RF: 0. (Transmitted by Colleen Reina, DO) PROVIDED HM: Recommendations for Testing HgbA1C in Individuals with Diabetes Mellitus Given: 8.5% PROVIDED HM: Tobacco use counseling and interventions: non- adults Given: JOEL 06/02/2017 08:22:37 Plan printed and provided to patient: PRESCRIBE: sertraline 100 mg oral tablet, one po daily, # 90, RF: 3. (Transmitted by Risk I/Oard, DO) PRESCRIBE: ProAir HFA 90 mcg/inh inhalation aerosol, two puffs qid prn wheeze, # 1, RF: 3. (Transmitted by Risk I/Oard, DO) PRESCRIBE: metFORMIN 500 mg oral tablet, one po bid pc, # 180, RF: 3. (Transmitted by CellTran, DO) PRESCRIBE: lisinopril 10 mg oral tablet, one po daily, # 90, RF: 3. (Transmitted by Risk I/Oard, DO) PRESCRIBE: Linzess 145 mcg oral capsule, one po daily prn constipation, # 90, RF: 3. (Transmitted by Risk I/Oard, DO) PRESCRIBE: Lantus Solostar Pen 100 units/mL subcutaneous solution, 25 units hs daily, # 5, RF: 5. (Transmitted by Risk I/Oard, DO) PRESCRIBE: glipiZIDE 10 mg oral tablet, one po daily, # 90, RF: 3. (Transmitted by CellTran, DO) PRESCRIBE: BD Pen Needle Mini U/F, use as directed for lantus injection, # 100, RF: 3. (Transmitted by Risk I/Oard, DO) PRESCRIBE: atorvastatin 10 mg oral tablet, one po daily, # 90, RF: 3. (Transmitted by CellTran, DO) He is walking at least a [...] diabetes related complication....14% decrease in risk of [place].....12%decrease risk of stroke...and a 37% decrease risk [...] we have to work with? Time/Travel/Tastes/Treatments?? Arrange: Clinical Training Coordinator? www.[email or web address] Hairspring Truer?www.diabeteseducator.org Pharmacy/Pharmacy benefits Literature? Recipes Diabetes Antimony www.diabetes.org www.ncbde.org www.diabeeseducator.org/deap www.ndep.nih.gov www.diabetes.org www.learningaboutdiabetes.org www.diabeticconnect.com www.GeoloqinoZazoo.Response Analytics www.diabeteswhattBlink (air taxi)now.com www.peersforprogress.org [place] Read about tanner 06/02/2017 08:22:37 Plan printed and provided to patient: PRESCRIBE: sertraline 100 mg oral tablet, one po daily, # 90, RF: 3. (Transmitted by Colleen Genoa, DO) PRESCRIBE: ProAir HFA 90 mcg/inh inhalation aerosol, two puffs qid prn wheeze, # 1, RF: 3. (Transmitted by ColleenEyeCyteard, DO) PRESCRIBE: metFORMIN 500 mg oral tablet, one po bid pc, # 180, RF: 3. (Transmitted by ColleenEyeCyteard, DO) PRESCRIBE: lisinopril 10 mg oral tablet, one po daily, # 90, RF: 3. (Transmitted by ColleenEyeCyteard, DO) PRESCRIBE: Linzess 145 mcg oral capsule, one po daily prn constipation, # 90, RF: 3. (Transmitted by ColleenEyeCyteard, DO) PRESCRIBE: Lantus Solostar Pen 100 units/mL subcutaneous solution, 25 units hs daily, # 5, RF: 5. (Transmitted by Risk I/Oard, DO) PRESCRIBE: glipiZIDE 10 mg oral tablet, one po daily, # 90, RF: 3. (Transmitted by ColleenEyeCyteard, DO) PRESCRIBE: BD Pen Needle Mini U/F, use as directed for lantus injection, # 100, RF: 3. (Transmitted by Risk I/Oard, DO) PRESCRIBE: atorvastatin 10 mg oral tablet, one po daily, # 90, RF: 3. (Transmitted by ColleenEyeCyteard, DO) He is walking at least a [...] diabetes related complication....14% decrease in risk of [place].....12%decrease risk of stroke...and a 37% decrease risk [...] we have to work with? Time/Travel/Tastes/Treatments?? Arrange: Clinical Training Coordinator? www.[email or web address] Hairspring Truer?www.diabeteseducator.org Pharmacy/Pharmacy benefits Literature? Recipes Diabetes Antimony www.diabetes.org www.ncbde.org www.diabeeseducator.org/deap www.ndep.nih.gov www.diabetes.org www.learningaboutdiabetes.org www.diabeticconnect.com www.GeoloqinoZazoo.Response Analytics www.diabeteswhattBlink (air taxi)now.com www.peersforprogress.org [place] Read about tanner [...] # 90, RF: 3. (Transmitted by Colleen Genoa, DO) PRESCRIBE: Linzess 145 mcg oral capsule, one po daily prn constipation, # 90, RF: 3. (Transmitted by Colleen Huang, DO) PRESCRIBE: Lantus Solostar Pen 100 units/mL subcutaneous solution, 25 units hs daily, # 5, RF: 5. (Transmitted by Colleen Reina, DO) PRESCRIBE: glipiZIDE 10 mg oral tablet, one po daily, # 90, RF: 3. (Transmitted by Colleen Genoa, DO) PRESCRIBE: BD Pen Needle Mini U/F, [...] diabetes related complication....14% decrease in risk of [place].....12%decrease risk of stroke...and a 37% decrease risk [...] we have to work with? Time/Travel/Tastes/Treatments?? Arrange: Clinical Training Coordinator? www.eatright.org Hairspring Truer?www.diabeteseducator.org Pharmacy/Pharmacy benefits Literature? Recipes Diabetes Antimony www.diabetes.org www.ncbde.org www.diabeeseducator.org/deap www.ndep.nih.gov www.diabetes.org www.learningaboutdiabetes.org www.diabeticconnect.Response Analytics www.GeoloqinoZazoo.Response Analytics www.diabeteswhattBlink (air taxi)now.com www.peersforprogress.org [place] Read about tanner [...] Codes (M54.9, E11.29, M54.5) ORDERED/ADVISED: - Buscemi, Maryore (Urology) ICD Codes (L23.9, R68.89) 03/07/2017 09:18:02 [...] diabetes related complication....14% decrease in risk of [place].....12%decrease risk of stroke...and a 37% decrease risk [...] What information do you need? Assist: research Glenys/saroj I can get you the information/tools you desire? Can I get you the information/tools you desire? What do we have to work with? Time/Travel/Tastes/Treatments?? Arrange: Clinical Training Coordinator? www.eatright.org Hairspring Truer?www.diabeteseducator.org Pharmacy/Pharmacy benefits Literature? Recipes Diabetes Antimony www.diabetes.org www.ncbde.org www.diabeeseducator.org/deap www.ndep.nih.gov www.diabetes.org www.learningaboutdiabetes.org www.diabeticconnect.com www.whatBlink (air taxi)now.Response Analytics www.diabeteswhattoknow.com www.peersforprogress.org [place] PROVIDED HM: [...] diabetes related complication....14% decrease in risk of [place].....12%decrease risk of stroke...and a 37% decrease risk [...] we have to work with? Time/Travel/Tastes/Treatments?? Arrange: Clinical Training Coordinator? www.eatright.org Hairspring Truer?www.diabeteseducator.org Pharmacy/Pharmacy benefits Literature? Recipes Diabetes Antimony www.diabetes.org www.ncbde.org www.diabeeseducator.org/deap www.ndep.nih.gov www.diabetes.org www.learningaboutdiabetes.org www.diabeticconnect.com www.whatoknow.com www.diabeteswhattoknow.com www.peersforprogress.org [place] PROVIDED HM: [...] diabetes related complication....14% decrease in risk of [place].....12%decrease risk of stroke...and a 37% decrease risk [...] we have to work with? Time/Travel/Tastes/Treatments?? Arrange: Clinical Training Coordinator? www.eatright.org Hairspring Truer?www.diabeteseducator.org Pharmacy/Pharmacy benefits Literature? Recipes Diabetes Antimony www.diabetes.org www.ncbde.org www.diabeeseducator.org/deap www.ndep.nih.gov www.diabetes.org www.learningaboutdiabetes.org www.diabeticconnect.com www.GeoloqinoZazoo.Response Analytics www.diabeteswhattBlink (air taxi)now.com www.peersforprogress.org [place] PROVIDED HM: Obesity: [...] 60, RF: 0. PROVIDED HM: CDSMP Given: [employer] "Addictocarb Carb" Consider the Mediterranean Diet. Eliminate [...] 60, RF: 0. PROVIDED HM: CDSMP Given: [employer] "Addictocarb Carb" Consider the Mediterranean Diet. Eliminate [...] # 6, RF: 0. (Transmitted by Colleen Huang, ) ORDERED/ADVISED: - CXR - PA & [...] support/Move your body/Think positive/Be good to yourself/ [place] [employer] Diabetic Educators....7 behaviors for diabetes [...] support/Move your body/Think positive/Be good to yourself/ [place] [employer] Diabetic Educators....7 behaviors for diabetes [...] 4, # 6, RF: 0. (Transmitted by Risk I/Oard, ) ORDERED/ADVISED: - CXR - PA & [...] support/Move your body/Think positive/Be good to yourself/ [place] [employer] Diabetic Educators....7 behaviors for diabetes [...] counseling and interventions: non- adults Given: NI 05/15/2016 08:27:09 Plan printed and provided to patient: PROVIDED VACCINATION: 1 dose of Fluvirin, 0.5 mL IM in the Left Deltoid (Mfg: OTHER lot no. [id number], exp01/08/2017) PROVIDED HM: Screening for Depression in Adults Given: Not present [facility] 05/15/2016 08:27:09 Plan printed and provided to patient: PROVIDED VACCINATION: 1 dose of Fluvirin, 0.5 mL IM in the Left Deltoid (Mfg: OTHER lot no. [id number], 01/08/2017) PROVIDED HM: Screening for Depression in Adults Given: Not present Percoset script to [facility] 05/15/2016 08:27:09 Plan printed and provided to patient: PROVIDED VACCINATION: 1 dose of Fluvirin, 0.5 mL IM in the Left Deltoid (Mfg: OTHER lot no. [id number], 01/08/2017) PROVIDED HM: Screening for Depression in Adults Given: Not present Percoset script to [facility] 03/18/2016 08:09:18 Plan printed and provided to [...] # 5, RF: 3. (Transmitted by Colleen Huang DO) PRESCRIBE: BD Pen Needle Mini U/F, use as directed for lantus injection, # 100, RF: 3. (Transmitted by CellTran, DO) PRESCRIBE: Linzess 145 mcg oral capsule, one po daily prn constipation, # 90, RF: 3. (Transmitted by Risk I/Oard, DO) PRESCRIBE: Zoloft 100 mg oral tablet, one po daily, # 90, RF: 3. (Transmitted by CellTran, [employer]) PRESCRIBE: metFORMIN 500 mg oral tablet, one po bid pc, # 180, RF: 3. (Transmitted by Risk I/Oard, DO) PRESCRIBE: lisinopril 10 mg oral tablet, one po daily, # 90, RF: 3. (Transmitted by CellTran, DO) PRESCRIBE: glipiZIDE 10 mg oral tablet, one po daily, # 90, RF: 3. (Transmitted by CellTran, DO) PRESCRIBE: cholecalciferol 50,000 intl units oral capsule, one po weekly, # 12, RF: 3. (Transmitted by CellTran, [employer]) PRESCRIBE: atorvastatin 10 mg oral tablet, one po daily, # 90, RF: 3. (Transmitted by CellTran, DO) ORDERED/ADVISED: - CBC with diff (automated) [...] daily, # 1, RF: 5. (Transmitted by Risk I/Oard, DO) PRESCRIBE: Cortisporin-TC otic suspension, 4 gtts into left EAC bid, # 5, RF: 0. (Transmitted by Risk I/Oard, DO) Increase lantus insulin to 24 units [...] # 180, RF: 0. (Transmitted by Colleen Huang, DO) PRESCRIBE: lisinopril [...] the Left Deltoid (Mfg: NOVARTIS lot no. [id number], expires 01/29/2015) ORDERED/ADVISED: - CBC with diff [...] 13:52:33 Instructions printed and provided to patient: PRESS HAND site consulted prior to scheduled drug prescription. [...] 3. (Transmitted by Colleen Huang DO) PRESCRIBE: Zoloft 100 mg oral tablet, one po daily, # 90, RF: 3. (Transmitted by Colleen Huang DO) PRESCRIBE: metFORMIN 1000 mg oral tablet, one po pc breakfast and supper, one half after lunch, # 225, RF: 3. (Transmitted by Colleen Huang DO) DISCONTINUE: metroNIDAZOLE 0.75% topical lotion apply [...] bid prn pain, # 60, RF: NONE. PRESS HAND site consulted prior to scheduled drug prescription. [...] Ds) ICD9 Codes (250.00, 600.9, 272.4, 401.9) PRESS HAND site consulted prior to scheduled drug prescription. [...] # 180, RF: 3. (Transmitted by Colleen Genoa, ) DISCONTINUE: cyclobenzaprine 10 mg oral tablet [...] 45, RF: 3. (Transmitted by Colleen Huang, DO) PRESCRIBE: BD ultrafine needles for byetta injection, one bid as directed, # 180, RF: 3. (Transmitted by Colleen Huang, DO) PRESCRIBE: Byetta Prefilled Pen 10 mcg/0.04 mL subcutaneous solution, 10mcg sq bid ac, # 180, RF: 3. (Transmitted by Colleen Huang, DO) ORDERED/ADVISED: - CBC with diff (automated) [...] by Colleen Huang DO) All sent to [facility] today and 06/19/11. DISCONTINUE: gabapentin [...] ml IM in the L DELTOID (Mfg: [employer] lot no. [id number], expires 02/28/2012) ORDERED/ADVISED: - Urine microalbumin (AODM) [...] PRESCRIBE: Gabapentin 100mg, one or two po [id number] prn back pain, # 180, RF: 5. [...]
--- OUTSIDE RECORDS SUMMARY | 2020-10-17 11:13 | CCD ---
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 Colleen Huang DO 09-27-2020 Unspecified injury of right shoulder and upper arm [ICD10: S49.91XA] Dr. Colleen Huang DO 09-26-2020 Type II diabetes mellitus poorly control led [SNOMED-CT: 249785570] Dr. Colleen Huang DO 09-26-2020 Type II diabetes mellitus poorly control led [SNOMED-CT: 761835232] Dr. Colleen Huang DO 09-15-2020 Nausea and vomiting [SNOMED-CT: 54742889] Dr. Colleen Huang DO 09-15-2020 Emotional stress [SNOMED-CT: 273353713] Dr. Colleen Huang DO 08-30-2020 Type II diabetes mellitus poorly control led [SNOMED-CT: 607890398] Dr. Colleen Huang DO 08-30-2020 Acute pancreatitis [SNOMED-CT: 342557166] Dr. Colleen Huang DO 08-23-2020 Type II diabetes mellitus poorly control led [SNOMED-CT: 492009668] Dr. Colleen Huang DO 08-23-2020 Generalised itching [SNOMED-CT: 527075466] Celestine Huang, DO 08-23-2020 Thyroiditis [SNOMED-CT: 77762126] Dr Joe Huang, DO 08-23-2020 Chronic kidney disease [SNOMED-CT: 420080942] Dr. Colleen Huang, DO 08-23-2020 Acute pancreatitis [SNOMED-CT: 570220967] Dr. Colleen Huang, DO 08-15-2020 Type II diabetes mellitus poorly control led [SNOMED-CT: 302235529] Dr. Colleen Huang, DO 08-15-2020 Generalised itching [SNOMED-CT: 441208321] Celestine Huang, DO 08-15-2020 Acute pancreatitis [SNOMED-CT: 025753356] Dr. Colleen Huang, DO 08-14-2020 Type II diabetes mellitus poorly control led [SNOMED-CT: 073767160] Dr. Colleen Huang, DO 08-14-2020 Other hyperlipidemia [ICD10: E78.49] Dr. Colleen Huang, DO 08-14-2020 Balanitis [SNOMED-CT: 33816796] Dr. Colleen Huang, DO 05-30-2020 Type II diabetes mellitus poorly control led [SNOMED-CT: 813939351] Dr. Colleen Huang, DO 05-30-2020 Type II diabetes mellitus poorly control led [SNOMED-CT: 233966761] Dr. Colleen Huang, DO 03-22-2020 Other hyperlipidemia [ICD10: E78.49] Dr. Colleen Huang, DO 03-22-2020 DIABETES MELLITUS WITHOUT MENTION OF COM PLICATION [SNOMED-CT: 661749225] N/A N/A 03-15-2020 Acute rhinosinusitis [SNOMED-CT: 515282193] Dr. Colleen Huang, DO 09-08-2019 Upper respiratory infection [SNOMED-CT: 16244608] Dr. Colleen Huang, DO 09-08-2019 DIABETES WITH RENAL MANIFESTATIONS TYPE II OR UNSPECIFIED TYPE NOT STATED UNCONTROLLED [SNOMED-CT: 217410913] Dr. Colleen Huang, DO 08-13-2019 UNSPECIFIED ESSENTIAL HYPERTENSION [SNOMED-CT: 4269515 0] N/A N/A 08-13-2019 ANXIETY STATE UNSPECIFIED [SNOMED-CT: 804987448] Celestine Huang, DO 08-13-2019 CHRONIC KIDNEY DISEASE STAGE II (MILD) [SNOMED-CT: 431 007871] Dr. Colleen Huang, DO 08-13-2019 Other specified vaccination [ICD10: Z23] Celestine Huang, DO 08-13-2019 Pain in left foot [SNOMED-CT: 829733138644196] Dr. Colleen Huang, DO 06-18-2019 DIABETES MELLITUS WITHOUT MENTION OF COM PLICATION [SNOMED-CT: 153849328] Celestine Huang, DO 06-18-2019 DIABETES WITH RENAL MANIFESTATIONS TYPE II OR UNSPECIFIED TYPE NOT STATED UNCONTROLLED [SNOMED-CT: 304900954] Dr. Colleen Huang, DO 03-24-2019 Contusion of lower back and pelvis, init ial encounter [ICD10: S30.0XXA] Dr. Colleen Huang, DO 12-14-2018 DIABETES WITH RENAL MANIFESTATIONS TYPE II OR UNSPECIFIED TYPE NOT STATED UNCONTROLLED [SNOMED-CT: 670599261] Dr. Colleen Huang, DO 12-14-2018 DIABETES MELLITUS WITHOUT MENTION OF COM PLICATION [SNOMED-CT: 959985022] N/A N/A 09-07-2018 DIABETES WITH RENAL MANIFESTATIONS TYPE II OR UNSPECIFIED TYPE NOT STATED UNCONTROLLED [SNOMED-CT: 969097662] Dr. Colleen Huang, DO 07-20-2018 Other hyperlipidemia [ICD10: E78.49] Dr. Colleen Huang, DO 07-20-2018 Back pain [SNOMED-CT: 551169138] Dr. Colleen Huang, DO 06-03-2018 DIABETES WITH RENAL MANIFESTATIONS TYPE II OR UNSPECIFIED TYPE NOT STATED UNCONTROLLED [SNOMED-CT: 081040433] Dr. Colleen Huang, DO 06-03-2018 Arthropathy of left shoulder [SNOMED-CT: 7038476734753 9103] Dr. Colleen Huang, DO 06-03-2018 DIABETES WITH RENAL MANIFESTATIONS TYPE II OR UNSPECIFIED TYPE NOT STATED UNCONTROLLED [SNOMED-CT: 053764150] Dr. Colleen Huang, DO 03-27-2018 Viral gastroenteritis [SNOMED-CT: 865862802] Dr. Colleen Huang, DO 12-26-2017 DIABETES WITH RENAL MANIFESTATIONS TYPE II OR UNSPECIFIED TYPE NOT STATED UNCONTROLLED [SNOMED-CT: 176769766] Dr. Colleen Huang, DO 12-26-2017 Cat bite [SNOMED-CT: 122406600] Dr. Colleen Huang, DO 12-26-2017 DIABETES WITH RENAL MANIFESTATIONS TYPE II OR UNSPECIFIED TYPE NOT STATED UNCONTROLLED [SNOMED-CT: 768354789] Dr. Colleen Huang, DO 09-24-2017 DIABETES MELLITUS WITHOUT MENTION OF COM PLICATION [SNOMED-CT: 442535149] Celestine Huang, DO 09-24-2017 ROUTINE GENERAL MEDICAL EXAMINATION AT A HEALTH CARE FACILITY [SNOMED-CT: 283227980] Celestine Huang, DO 06-02-2017 DIABETES WITH RENAL MANIFESTATIONS TYPE II OR UNSPECIFIED TYPE NOT STATED UNCONTROLLED [SNOMED-CT: 485690329] Dr. Colleen Huang, DO 06-02-2017 Allergic contact dermatitis of male melissa isamar [SNOMED-CT: 717099162] Dr. Colleen Huang, DO 03-07-2017 Other genital problems [ICD10: R68.89] Dr. Colleen Huang, DO 03-07-2017 DIABETES WITH RENAL MANIFESTATIONS TYPE II OR UNSPECIFIED TYPE NOT STATED UNCONTROLLED [SNOMED-CT: 716885840] Dr. Colleen Huang, DO 03-07-2017 Back pain [SNOMED-CT: 378605588] Dr. Colleen Huang, DO 03-07-2017 LUMBAGO [SNOMED-CT: 113465631] Jose Angel unger Reina Huang, DO 03-07-2017 Penile cellulitis/abscess/boil [SNOMED-CT: 853081487] Dr. Colleen Huang, DO 01-15-2017 DIABETES WITH RENAL MANIFESTATIONS TYPE II OR UNSPECIFIED TYPE NOT STATED UNCONTROLLED [SNOMED-CT: 727752890] Dr. Colleen Huang, DO 01-15-2017 Back pain [SNOMED-CT: 581651132] Dr. Colleen Huang, DO 11-06-2016 DIABETES WITH RENAL MANIFESTATIONS TYPE II OR UNSPECIFIED TYPE NOT STATED UNCONTROLLED [SNOMED-CT: 764507138] Dr. Colleen Huang, DO 11-06-2016 UNSPECIFIED ESSENTIAL HYPERTENSION [SNOMED-CT: 4690536 0] N/A N/A 11-06-2016 Bronchospasm [SNOMED-CT: 3101075] Dr Joe Huang, DO 09-04-2016 Back pain [SNOMED-CT: 819629492] Dr. Colleen Huang, DO 09-04-2016 Primary atypical interstitial pneumonia [SNOMED-CT: 35 368069] Dr. Colelen Huang, DO 09-04-2016 Back pain [SNOMED-CT: 413861840] Dr. Colleen Huang, DO 07-10-2016 DIABETES WITH RENAL MANIFESTATIONS TYPE II OR UNSPECIFIED TYPE NOT STATED UNCONTROLLED [SNOMED-CT: 267125925] Dr. Colleen Huang, DO 07-10-2016 Back pain [SNOMED-CT: 668207494] Dr. Colleen Huang, DO 05-15-2016 CHRONIC KIDNEY DISEASE STAGE II (MILD) [SNOMED-CT: 431 199944] Dr. Colleen Huang, DO 05-15-2016 DIABETES WITH RENAL MANIFESTATIONS TYPE II OR UNSPECIFIED TYPE NOT STATED UNCONTROLLED [SNOMED-CT: 721348293] Dr. Colleen Huang, DO 05-15-2016 LUMBAGO [SNOMED-CT: 774723069] Jose Angel unger Reina Huang, DO 05-15-2016 Other specified vaccination [ICD10: Z23] Celestine Huang, DO 05-15-2016 Back pain [SNOMED-CT: 584720889] Dr. Colleen Huang, DO 03-18-2016 DIABETES WITH RENAL MANIFESTATIONS TYPE II OR UNSPECIFIED TYPE NOT STATED UNCONTROLLED [SNOMED-CT: 942500009] Dr. Colleen Huang, DO 03-18-2016 DIABETES WITH RENAL MANIFESTATIONS TYPE II OR UNSPECIFIED TYPE NOT STATED UNCONTROLLED [SNOMED-CT: 772005544] Dr. Colleen Huang, DO 01-22-2016 Exogenous hyperlipidemia [SNOMED-CT: 244542171] Dr. Colleen Huang, DO 01-22-2016 ANXIETY STATE UNSPECIFIED [SNOMED-CT: 746161060] Celestine Huang, DO 01-22-2016 DIABETES WITH RENAL MANIFESTATIONS TYPE II OR UNSPECIFIED TYPE NOT STATED UNCONTROLLED [SNOMED-CT: 833177868] Dr. Colleen Huang, DO 12-15-2015 Otitis externa [SNOMED-CT: 3395654] Celestine Huang, DO 12-15-2015 Impacted cerumen [SNOMED-CT: 99707177] Celestine Huang, DO 12-15-2015 DIABETES WITH RENAL MANIFESTATIONS TYPE II OR UNSPECIFIED TYPE NOT STATED UNCONTROLLED [SNOMED-CT: 452482916] Dr. Colleen Huang, DO 11-17-2015 Back pain [SNOMED-CT: 707174924] Dr. Colleen Huang, DO 11-17-2015 UNSPECIFIED SLEEP APNEA [SNOMED-CT: 49748562] Celestine Huang, DO 11-17-2015 UNSPECIFIED ESSENTIAL HYPERTENSION [SNOMED-CT: 3345464 0] N/A N/A 11-17-2015 ROUTINE GENERAL MEDICAL EXAMINATION AT A HEALTH CARE FACILITY [SNOMED-CT: 477663784] Celestine Huang, DO 09-27-2015 Back pain [SNOMED-CT: 526917983] Dr. Colleen Huang, DO 08-11-2015 Dysuria-frequency syndrome [SNOMED-CT: 7100386] Dr. Colleen Huang, DO 08-11-2015 LUMBAGO [SNOMED-CT: 334687187] Jose Angel unger Reina Huang, DO 06-19-2015 CLOSED FRACTURE OF LUMBAR VERTEBRA WITHO UT SPINAL [SNOMED-CT: 82843320] Celestine Huang, DO 06-19-2015 DIABETES WITH RENAL MANIFESTATIONS TYPE II OR UNSPECIFIED TYPE NOT STATED UNCONTROLLED [SNOMED-CT: 836315868] Dr. Colleen Huang, DO 06-19-2015 DIABETES WITH RENAL MANIFESTATIONS TYPE II OR UNSPECIFIED TYPE NOT STATED UNCONTROLLED [SNOMED-CT: 371377310] Dr. Colleen Huang, DO 04-26-2015 Back pain [SNOMED-CT: 260105746] Dr. Colleen Huang, DO 04-26-2015 Other constipation [ICD9: 564.09] Dr Joe Huang, DO 01-18-2015 Back pain [SNOMED-CT: 739246229] Dr. Colleen Huang, DO 01-18-2015 DIABETES WITH RENAL MANIFESTATIONS TYPE II OR UNSPECIFIED TYPE NOT STATED UNCONTROLLED [SNOMED-CT: 018954930] Dr. Colleen Huang, DO 11-30-2014 CHRONIC KIDNEY DISEASE STAGE II (MILD) [SNOMED-CT: 431 296310] Dr. Colleen Huang, DO 11-30-2014 UNSPECIFIED ESSENTIAL HYPERTENSION [SNOMED-CT: 4929686 0] N/A N/A 11-30-2014 DIABETES WITH RENAL MANIFESTATIONS TYPE II OR UNSPECIFIED TYPE NOT STATED UNCONTROLLED [SNOMED-CT: 676216068] Dr. Colleen Huang, DO 10-19-2014 CHRONIC KIDNEY DISEASE STAGE II (MILD) [SNOMED-CT: 431 948225] Dr. Colleen Huang, DO 10-19-2014 DIABETES WITH RENAL MANIFESTATIONS TYPE II OR UNSPECIFIED TYPE NOT STATED UNCONTROLLED [SNOMED-CT: 301096225] Dr. Colleen Huang, DO 09-16-2014 DIABETES WITH RENAL MANIFESTATIONS TYPE II OR UNSPECIFIED TYPE NOT STATED UNCONTROLLED [SNOMED-CT: 943106754] Dr. Colleen Huang, DO 09-14-2014 CHRONIC KIDNEY DISEASE STAGE II (MILD) [SNOMED-CT: 431 736092] Dr. Colleen Huang, DO 09-14-2014 ROUTINE GENERAL MEDICAL EXAMINATION AT A HEALTH CARE FACILITY [SNOMED-CT: 791663630] Celestine Huang, DO 08-22-2014 Other specified vaccination [ICD10: Z23] Celestine Huang, DO 08-22-2014 DIABETES MELLITUS WITHOUT MENTION OF COM PLICATION [SNOMED-CT: 080098633] N/A N/A 05-09-2014 DIABETES MELLITUS WITHOUT MENTION OF COM PLICATION [SNOMED-CT: 498068244] Celestine Huang, DO 03-16-2014 Back pain [SNOMED-CT: 441802056] Dr. Colleen Huang, DO 03-16-2014 CONTACT DERMATITIS AND OTHER ECZEMA UNSP ECIFIED CA [SNOMED-CT: 345356135] N/A N/A 03-16-2014 UNSPECIFIED ESSENTIAL HYPERTENSION [SNOMED-CT: 8119046 0] N/A N/A 03-16-2014 DIABETES MELLITUS WITHOUT MENTION OF COM PLICATION [SNOMED-CT: 553661549] Celestine Huang, DO 11-05-2013 Back pain [SNOMED-CT: 048332469] Dr. Colleen Huang, DO 11-05-2013 CLOSED FRACTURE OF LUMBAR VERTEBRA WITHO UT SPINAL [SNOMED-CT: 61360956] Celestine Huang, DO 11-05-2013 ANXIETY STATE UNSPECIFIED [SNOMED-CT: 129667721] Celestine Huang, DO 11-05-2013 DIABETES MELLITUS WITHOUT MENTION OF COM PLICATION [SNOMED-CT: 828674967] Celestine Huang, DO 06-11-2013 UNSPECIFIED ESSENTIAL HYPERTENSION [SNOMED-CT: 2413202 0] N/A N/A 06-11-2013 INSOMNIA UNSPECIFIED [SNOMED-CT: 585513837] Dr. Colleen Huang, DO 06-09-2013 ANXIETY STATE UNSPECIFIED [SNOMED-CT: 587966668] Celestine Huang, DO 06-09-2013 DIABETES MELLITUS WITHOUT MENTION OF COM PLICATION [SNOMED-CT: 231439877] Celestine Huang, DO 02-17-2013 HYPERPLASIA OF PROSTATE UNSPECIFIED WITH OUT URINAR [SNOMED-CT: 102565775] Celestine Huang, DO 02-17-2013 CLOSED FRACTURE OF LUMBAR VERTEBRA WITHO UT SPINAL [SNOMED-CT: 46584672] Celestine Huang, DO 02-17-2013 UNSPECIFIED ESSENTIAL HYPERTENSION [SNOMED-CT: 8258635 0] N/A N/A 02-17-2013 ROUTINE GENERAL MEDICAL EXAMINATION AT A HEALTH CARE FACILITY [SNOMED-CT: 402489098] Celestine Huang, DO 11-02-2012 DIABETES MELLITUS WITHOUT MENTION OF COM PLICATION [SNOMED-CT: 437309021] Celestine Huang, DO 08-28-2012 LUMBAGO [SNOMED-CT: 073846268] Jose Angel Huang, DO 08-05-2012 DIABETES MELLITUS WITHOUT MENTION OF COM PLICATION [SNOMED-CT: 896005230] Celestine Huang, DO 08-05-2012 UNSPECIFIED ESSENTIAL HYPERTENSION [SNOMED-CT: 9426756 0] N/A N/A 08-05-2012 DIABETES MELLITUS WITHOUT MENTION OF COM PLICATION [SNOMED-CT: 729214781] Celestine Huang, DO 02-26-2012 LUMBAGO [SNOMED-CT: 503045413] Jose Angel Macias Chantal Reina, DO 02-26-2012 UNSPECIFIED ESSENTIAL HYPERTENSION [SNOMED-CT: 6793823 0] N/A N/A 02-26-2012 DIABETES MELLITUS WITHOUT MENTION OF COM PLICATION [SNOMED-CT: 318033787] Celestine Huang, DO 10-23-2011 LUMBAGO [SNOMED-CT: 231588066] Jose Angel Huang, DO 10-23-2011 PAIN IN JOINT INVOLVING SHOULDER REGION [SNOMED-CT: 963549510] Celestine Huang, DO 08-21-2011 DIABETES MELLITUS WITHOUT MENTION OF COM PLICATION [SNOMED-CT: 755693331] Celestine Huang, DO 08-21-2011 HYPERPLASIA OF PROSTATE UNSPECIFIED WITH OUT URINAR [SNOMED-CT: 760641763] Celestine Huang, DO 08-21-2011 UNSPECIFIED ESSENTIAL HYPERTENSION [SNOMED-CT: 0301238 0] N/A N/A 08-21-2011 Other specified vaccination [ICD10: Z23] Celestine Huang, DO 08-21-2011 PAIN IN JOINT INVOLVING SHOULDER REGION [SNOMED-CT: 714676004] Celestine Huang, DO 06-19-2011 DIABETES MELLITUS WITHOUT MENTION OF COM PLICATION [SNOMED-CT: 555157891] Celestine Huang, DO 06-19-2011 HYPERPLASIA OF PROSTATE UNSPECIFIED WITH OUT URINAR [SNOMED-CT: 888498346] Celestine Huang, DO 06-19-2011 UNSPECIFIED ESSENTIAL HYPERTENSION [SNOMED-CT: 7850916 0] N/A N/A 06-19-2011 Other specified vaccination [ICD10: Z23] Celestine Huang, DO 06-19-2011 PAIN IN JOINT INVOLVING SHOULDER REGION [SNOMED-CT: 815976477] Celestine Huang, DO 03-08-2011 DIABETES MELLITUS WITHOUT MENTION OF COM PLICATION [SNOMED-CT: 778689302] Celestine Huang, DO 03-08-2011 HYPERPLASIA OF PROSTATE UNSPECIFIED WITH OUT URINAR [SNOMED-CT: 379103345] Celestine Huang, DO 03-08-2011 UNSPECIFIED ESSENTIAL HYPERTENSION [SNOMED-CT: 3480769 0] N/A N/A 03-08-2011 PAIN IN JOINT INVOLVING SHOULDER REGION [SNOMED-CT: 411138467] Celestine Huang, DO 12-26-2010 DIABETES MELLITUS WITHOUT MENTION OF COM PLICATION [SNOMED-CT: 270652551] Celestine Huang, DO 12-26-2010 HYPERPLASIA OF PROSTATE UNSPECIFIED WITH OUT URINAR [SNOMED-CT: 401571478] Celestine Huang, DO 12-26-2010 UNSPECIFIED ESSENTIAL HYPERTENSION [SNOMED-CT: 7994600 0] N/A N/A 12-26-2010 Back pain [SNOMED-CT: 943737102] Dr. Colleen Huang, DO 12-14-2010 CLOSED FRACTURE OF LUMBAR VERTEBRA WITHO UT SPINAL [SNOMED-CT: 50547671] Celestine Huang, DO 12-14-2010 DIABETES MELLITUS WITHOUT MENTION OF COM PLICATION [SNOMED-CT: 893849935] Celestine Huang, DO 09-24-2010 CLOSED FRACTURE OF LUMBAR VERTEBRA WITHO UT SPINAL [SNOMED-CT: 22927683] Celestine Huang, DO 09-24-2010 UNSPECIFIED ESSENTIAL HYPERTENSION [SNOMED-CT: 5916868 0] N/A N/A 09-24-2010 DIABETES MELLITUS WITHOUT MENTION OF COM PLICATION [SNOMED-CT: 140517040] Celestine Huang, DO 08-29-2010 CLOSED FRACTURE OF LUMBAR VERTEBRA WITHO UT SPINAL [SNOMED-CT: 57152235] Celestine Huang, DO 08-29-2010 UNSPECIFIED ESSENTIAL HYPERTENSION [SNOMED-CT: 1340215 0] N/A N/A 08-29-2010 DIABETES MELLITUS WITHOUT MENTION OF COM PLICATION [SNOMED-CT: 153643310] Celestine Huang, DO 06-27-2010 CLOSED FRACTURE OF LUMBAR VERTEBRA WITHO UT SPINAL [SNOMED-CT: 88261136] Celestine Huang, DO 06-27-2010 UNSPECIFIED ESSENTIAL HYPERTENSION [SNOMED-CT: 6663707 0] N/A N/A 06-27-2010 CLOSED FRACTURE OF LUMBAR VERTEBRA WITHO UT SPINAL [SNOMED-CT: 57565764] Celestine Huang, DO 06-13-2010 DIABETES MELLITUS WITHOUT MENTION OF COM PLICATION [SNOMED-CT: 605422226] Celestine Huang, DO 03-23-2010 IMPOTENCE OF ORGANIC ORIGIN [SNOMED-CT: 119520641] N/A N/A 03-23-2010 UNSPECIFIED ESSENTIAL HYPERTENSION [SNOMED-CT: 0200358 0] N/A N/A 03-23-2010 UNSPECIFIED CATARACT [SNOMED-CT: 252612303] Celestine Huang, DO 01-26-2010 DIABETES MELLITUS WITHOUT MENTION OF COM PLICATION [SNOMED-CT: 605810324] Celestine Huang, DO 01-26-2010 UNSPECIFIED SLEEP APNEA [SNOMED-CT: 42841913] Celestine Huang, DO 01-26-2010 UNSPECIFIED ESSENTIAL HYPERTENSION [SNOMED-CT: 2511421 0] N/A N/A 01-26-2010 UNSPECIFIED DISORDER OF SKIN AND SUBCUTA NEOUS TISS [SNOMED-CT: 02508735] Celestine Huang, DO 01-26-2010 IMPOTENCE OF ORGANIC ORIGIN [SNOMED-CT: 982047754] N/A N/A 01-26-2010 DIABETES MELLITUS WITHOUT MENTION OF COM PLICATION [SNOMED-CT: 758848997] Celestine Huang, DO 12-20-2009 UNSPECIFIED ESSENTIAL HYPERTENSION [SNOMED-CT: 2468158 0] N/A N/A 12-20-2009 HYPERPLASIA OF PROSTATE UNSPECIFIED WITH OUT URINAR [SNOMED-CT: 529981740] Celestine Huang, DO 12-20-2009 UNSPECIFIED DISORDER OF SKIN AND SUBCUTA NEOUS TISS [SNOMED-CT: 63818210] Celestine Huang, DO 12-20-2009 IMPOTENCE OF ORGANIC ORIGIN [SNOMED-CT: 794697793] N/A N/A 12-20-2009 DIABETES MELLITUS WITHOUT MENTION OF COM PLICATION [SNOMED-CT: 680321973] N/A N/A 09-18-2009 UNSPECIFIED ESSENTIAL HYPERTENSION [SNOMED-CT: 4520080 0] N/A N/A 09-18-2009 IMPOTENCE OF ORGANIC ORIGIN [SNOMED-CT: 412883567] N/A N/A 09-18-2009 DIABETES MELLITUS WITHOUT MENTION OF COM PLICATION [SNOMED-CT: 810872946] N/A N/A 06-28-2009 DIABETES MELLITUS WITHOUT MENTION OF COM PLICATION [SNOMED-CT: 192186497] N/A N/A 06-16-2009 UNSPECIFIED ESSENTIAL HYPERTENSION [SNOMED-CT: 2267127 0] N/A N/A 06-16-2009 CONTACT DERMATITIS AND OTHER ECZEMA UNSP ECIFIED CA [SNOMED-CT: 397179579] N/A N/A 06-16-2009 ALLERGIES AND ADVERSE REACTIONS [...] hydrOXYzine hydrochloride 25 mg oral tablet, [RxNorm: 586871] hydrOXYzine one po bid prn and two po at hs 60 08/15/2020 Active atorvastatin 10 mg oral tablet, [RxNorm: 209668] atorvastatin one po hs daily 0 08/14/2020 Active metFORMIN 500 mg oral tablet, [RxNorm: 456250] metFORMIN one po bid 08/14/2020 Active HumaLOG 100 units/mL injectable solution, [RxNorm: 865 098] insulin lispro 6 units this am for sugar of 220....he h as a sliding scale 0 08/14/2020 Active Diflucan 150 mg oral tablet, [RxNorm: 946602] fluconazole one po now and repeat in 5 days 2 05/30/2020 Active Lotrisone 1%-0.05% topical cream, [RxNorm: 729073] clotrimazole-betamethasone dipropionate topic use as directed apply to genital area bid 30 05/30/2020 Active sertraline 100 mg oral tablet, [RxNorm: 011207] sertraline two po daily 180 019 Active lisinopril 10 mg oral tablet, [RxNorm: 187884] lisinopril one po daily 90 08/13/20 19 Active Linzess 145 mcg oral capsule, [RxNorm: 9598370] linaclotide one po daily prn constipation 90 08/13/2019 Active BD Pen Needle Mini U/F Unknown use as directed for lantus injection 200 2018 Active ibuprofen 800 mg oral tablet, [RxNorm: 990844] ibuprofen one po tid with food 90 06/23/2019 Active Lantus Solostar Pen 100 units/mL subcuta neous solution, [RxNorm: 793237] insulin glargine 14 units sq daily 15 12/18/2018 Active ProAir HFA 90 mcg/inh inhalation aerosol, [RxNorm: 745 752] albuterol two puffs qid prn wheeze 0 06/02/2017 Active Cortisporin-TC otic suspension, [RxNorm: 337407] colistin/neomycin/thonzonium/HC otic 4 gtts into left EAC bid 5 12/15/2015 Active aspirin 81 mg oral tablet, [RxNorm: 535969] aspirin one daily 1 11/17/2015 Active INSURANCE PROVIDERS Payer Name Policy Type P olicy ID Covered Republican ID Policy [employer] Health Insurance [id number] ESTRELL[facility] 20 [id number] THIAGO MENDOZA ASSESSMENTS # Unspecified injury of right shoulder and upper arm (S49.91XA): PROBLEMS Problem Problem Status D ate Started Date Resolved Date Inactivated CLOSED FRACTURE OF LUMBAR VERTEBRA WITHO UT SPINAL [SNOMED-CT: 30617771] Active 06-13-2010 NA NA Type II diabetes mellitus poorly control led [SNOMED-CT: 394255707] Active 03-22-2020 NA NA Allergic contact dermatitis of male melissa isamar [SNOMED-CT: 553057982] Active 03-07-2017 NA NA Other genital problems [ICD10: R68.89] Active 03-07-2017 NA NA ROUTINE GENERAL MEDICAL EXAMINATION AT A HEALTH CARE FACILITY [SNOMED-CT: 247567669] Active 11-02-2012 NA NA Other specified vaccination [ICD10: Z23] Active 05-15-2016 NA NA DIABETES MELLITUS WITHOUT MENTION OF COM PLICATION [SNOMED-CT: 149101822] Active 12-20-2009 NA NA HYPERPLASIA OF PROSTATE UNSPECIFIED WITH OUT URINAR [SNOMED-CT: 206002533] Active 12-20-2009 NA NA UNSPECIFIED DISORDER OF SKIN AND SUBCUTA NEOUS TISS [SNOMED-CT: 99926132] Active 12-20-2009 NA NA Balanitis [SNOMED-CT: 55170064] Active 05-30-2020 NA NA Bronchospasm [SNOMED-CT: 1577673] Active 09-04-2016 NA NA Generalised itching [SNOMED-CT: 376686403] Active 08-15-2020 NA NA Other hyperlipidemia [ICD10: E78.49] Activ e 07-20-2018 NA NA Penile cellulitis/abscess/boil [SNOMED-CT: 633032908] Active 01-15-2017 NA NA Other constipation [ICD9: 564.09] Active 01-18-2015 NA NA UNSPECIFIED CATARACT [SNOMED-CT: 475234902] Active 01-26-2010 NA NA UNSPECIFIED SLEEP APNEA [SNOMED-CT: 30379858] Active 01-26-2010 NA NA Chronic kidney disease [SNOMED-CT: 052118602] Active 08-23-2020 NA NA Unspecified injury of right shoulder and upper arm [ICD10: S49.91XA] Active 09-26-2020 NA NA Acute pancreatitis [SNOMED-CT: 332903526] Active 08-14-2020 NA NA Contusion of lower back and pelvis, init ial encounter [ICD10: S30.0XXA] Active 12-14-2018 NA NA Exogenous hyperlipidemia [SNOMED-CT: 328757926] Active 09-27-2015 NA NA Otitis externa [SNOMED-CT: 6451418] Active 12-15-2015 NA NA Impacted cerumen [SNOMED-CT: 82383941] Active 12-15-2015 NA NA INSOMNIA UNSPECIFIED [SNOMED-CT: 018723171] Active 06-09-2013 NA NA ANXIETY STATE UNSPECIFIED [SNOMED-CT: 326770001] Active 06-09-2013 NA NA NEED FOR PROPHYLACTIC VACCINATION AND IN OCULATION AGAINST INFLUENZA [SNOMED-CT: 864613273] Active 06-19-2011 NA NA Primary atypical interstitial pneumonia [SNOMED-CT: 35 630550] Active 09-04-2016 NA NA Viral gastroenteritis [SNOMED-CT: 085217698] Active 12-26-2017 NA NA Cat bite - wound [SNOMED-CT: 073905259] Active 12-26-2017 NA NA Cat bite [SNOMED-CT: 855319267] Active 12-26-2017 NA NA Cat bite [SNOMED-CT: 950297057] Active 12-26-2017 NA NA Emotional stress [SNOMED-CT: 916373096] Active 08-30-2020 NA NA Nausea and vomiting [SNOMED-CT: 62091441] Active 09-15-2020 NA NA BACKACHE UNSPECIFIED [SNOMED-CT: 238108673] Active 12-14-2010 NA NA PAIN IN JOINT INVOLVING SHOULDER REGION [SNOMED-CT: 236842506] Active 12-26-2010 NA NA DIABETES MELLITUS WITHOUT MENTION OF COM PLICATION [SNOMED-CT: 365269620] Active 05-19-2009 NA NA UNSPECIFIED ESSENTIAL HYPERTENSION [SNOMED-CT: 8607034 0] Active 05-19-2009 NA NA CONTACT DERMATITIS AND OTHER ECZEMA UNSP ECIFIED CA [SNOMED-CT: 225679576] Active 05-19-2009 NA NA Acute rhinosinusitis [SNOMED-CT: 125370596] Active 09-08-2019 NA NA Upper respiratory infection [SNOMED-CT: 91810594] Active 09-08-2019 NA NA LUMBAGO [SNOMED-CT: 204856125] Active 10-23-2011 NA NA SPRAIN OF UNSPECIFIED SITE OF SHOULDER A ND UPPER A [SNOMED-CT: 015420884] Active 06-28-2009 NA NA Back pain [SNOMED-CT: 505756735] Active 08-11-2015 NA NA Dysuria-frequency syndrome [SNOMED-CT: 1941708] Active 08-11-2015 NA NA Thyroiditis [SNOMED-CT: 22600058] Active 08-23-2020 NA NA Arthropathy of left shoulder [SNOMED-CT: 9715485985967 9103] Active 06-03-2018 NA NA Pain in left foot [SNOMED-CT: 986975690811650] Active 06-18-2019 NA NA DIABETES WITH RENAL MANIFESTATIONS TYPE II OR UNSPECIFIED TYPE NOT STATED UNCONTROLLED [SNOMED-CT: 577998732] Active 09-14-2014 NA NA CHRONIC KIDNEY DISEASE STAGE II (MILD) [SNOMED-CT: 431 874308] Active 09-14-2014 NA NA IMPOTENCE OF ORGANIC ORIGIN [SNOMED-CT: 991044464] Active 09-18-2009 NA NA PROCEDURES Procedure Date CPT Code Procedure 09/27/2020 13:05:10 [id number] Telephone evaluation and management service by a physician or other qualified health care program resident who may report evaluation and management services provided to an established patient, parent, or guardian not originating from a related E/M service provided within the previous 7 days nor leading to an E/M service or procedure within the next 24 hours or soonest available appointment; 5-10 minutes of medical discussion 09/26/2020 10:41:47 [id number] Telephone evaluation and management service by a physician or other qualified health care program resident who may report evaluation and management services provided to an established patient, parent, or guardian not originating from a related E/M service provided within the previous 7 days nor leading to an E/M service or procedure within the next 24 hours or soonest available appointment; 11-20 minutes of medical discussion 09/15/2020 12:51:28 61929 Telephone evaluation and management service by a physician or other qualified health care program resident who may report evaluation and management services provided to an established patient, parent, or guardian not originating from a related E/M service provided within the previous 7 days nor leading to an E/M service or procedure within the next 24 hours or soonest available appointment; 5-10 minutes of medical discussion 08/30/2020 08:24:51 96082 Telephone evaluation and management service by a physician or other qualified health care program resident who may report evaluation and management services provided to an established patient, parent, or guardian not originating from a related E/M service provided within the previous 7 days nor leading to an E/M service or procedure within the next 24 hours or soonest available appointment; 5-10 minutes of medical discussion 08/23/2020 09:37:34 21515 Telephone evaluation and management service by a physician or other qualified health care program resident who may report evaluation and management services provided to an established patient, parent, or guardian not originating from a related E/M service provided within the previous 7 days nor leading to an E/M service or procedure within the next 24 hours or soonest available appointment; 5-10 minutes of medical discussion 08/15/2020 08:57:07 74670 Office or other outpatient visit for the [...] moderate severity. Physicians typically spend 15 minutes dhrh-tk-xqgx with the patient and/or family. 08/14/2020 09:42:50 14264 Transitional Care Management Services with the following required elements: Communication (direct contact, telephone, electronic) with the patient and/or caregiver within 2 business days of discharge Medical decision making of high complexity during the service period Imzv-kb-nhvg visit, within 7 calendar days of discharge 08/14/2020 09:42:50 G8427 Eligible clinician attests to documenting in the medical record they obtained, updated, or reviewed the patient's current medications 05/30/2020 13:09:49 67682 Office or other outpatient visit for the [...] moderate severity. Physicians typically spend 15 minutes afuf-es-tjue with the patient and/or family. 03/22/2020 09:10:00 39921 Office or other outpatient visit for the [...] moderate severity. Physicians typically spend 15 minutes fmoq-al-zvki with the patient and/or family. 03/15/2020 12:24:05 81717 Office or other outpatient visit for the evaluation and management of an established patient, that may not require the presence of a physician. Usually, the presenting problem(s) are minimal. Typically, 5 minutes are spent performing or supervising these services. 03/15/2020 12:24:05 18372 Hemoglobin; glycosylated (A1C) by device cleared by FDA for home use 03/15/2020 12:24:05 3046F Most recent hemoglobin A1c level greater than 9.0% (DM) 09/08/2019 08:19:29 61622 Office or other outpatient visit for the [...] high severity. Physicians typically spend 25 minutes dtca-rf-mmia with the patient and/or family. 09/08/2019 08:19:29 98872 Hemoglobin; glycosylated (A1C) by device cleared by FDA for home use 09/08/2019 08:19:29 3045F Most recent hemoglobin A1c (HbA1c) level 7.0-9.0% (DM) 08/13/2019 13:55:58 G0439 ANNUAL WELLNESS VISIT, SUBSEQUENT 08/13/2019 13:55:58 31637 Hemoglobin; glycosylated (A1C) by device cleared by FDA for home use 08/13/2019 13:55:58 89048 Influenza virus vaccine, quadrivalent (ccIIV4), derived from cell cultures, subunit, preservative and antibiotic free, 0.5 mL dosage, for intramuscular use 08/13/2019 13:55:58 G0008 ADMINISTRATION OF FLU VACCINE (V04.81) 08/13/2019 13:55:58 Dilated retinal eye exam with interpretation by an individual small group instructor or director of enterprise strategy documented and reviewed (DM) 08/13/2019 13:55:58 G8427 Eligible clinician attests to documenting in the medical record they obtained, updated, or reviewed the patient's current medications 08/13/2019 13:55:58 3017F Colorectal cancer screening results documented and reviewed (PV) 08/13/2019 13:55:58 1036F Current tobacco non-user (CAD, CAP, COPD, PV) (DM) (IBD) 06/18/2019 09:23:34 07561 Office or other outpatient visit for the [...] high severity. Physicians typically spend 25 minutes rpbe-an-itzm with the patient and/or family. 06/18/2019 09:23:34 99072 Hemoglobin; glycosylated (A1C) by device cleared by FDA for home use 06/18/2019 09:23:34 3045F Most recent hemoglobin A1c (HbA1c) level 7.0-9.0% (DM) 03/24/2019 08:14:04 71547 Office or other outpatient visit for the [...] high severity. Physicians typically spend 25 minutes gebh-ys-rmpk with the patient and/or family. 03/24/2019 08:14:04 56392 Hemoglobin; glycosylated (A1C) by device cleared by FDA for home use 03/24/2019 08:14:04 3045F Most recent hemoglobin A1c (HbA1c) level 7.0-9.0% (DM) 03/24/2019 08:14:04 G8427 Eligible clinician attests to documenting in the medical record they obtained, updated, or reviewed the patient's current medications 03/23/2019 11:45:37 3017F Colorectal cancer screening results documented and reviewed (PV) 12/14/2018 08:01:40 72677 Office or other outpatient visit for the [...] high severity. Physicians typically spend 25 minutes yvni-fj-zfue with the patient and/or family. 12/14/2018 08:01:40 76858 Collection of venous blood by venipuncture 12/14/2018 08:01:40 74442 Hemoglobin; glycosylated (A1C) by device cleared by FDA for home use 12/14/2018 08:01:40 3046F Most recent hemoglobin A1c level greater than 9.0% (DM) 12/14/2018 08:01:40 G8427 Eligible clinician attests to documenting in the medical record they obtained, updated, or reviewed the patient's current medications 09/07/2018 08:17:34 03393 Office or other outpatient visit for the evaluation and management of an established patient, that may not require the presence of a physician. Usually, the presenting problem(s) are minimal. Typically, 5 minutes are spent performing or supervising these services. 09/07/2018 08:17:34 45125 Hemoglobin; glycosylated (A1C) by device cleared by FDA for home use 09/07/2018 08:17:34 3044F Most recent hemoglobin A1c (HbA1c) level less than 7.0% (DM) 07/20/2018 13:54:05 54744 Periodic comprehensive preventive medicine reevaluation and management of an individual including an age and gender appropriate history, examination, counseling/anticipatory guidance/risk factor reduction interventions, and the ordering of laboratory/diagnostic procedures, established patient; 65 years and older 07/20/2018 13:54:05 65654 Hemoglobin; glycosylated (A1C) by device cleared by FDA for home use 07/20/2018 13:54:05 G8427 Eligible clinician attests to documenting in the medical record they obtained, updated, or reviewed the patient's current medications 07/20/2018 13:54:05 1036F Current tobacco non-user (CAD, CAP, COPD, PV) (DM) (IBD) 07/20/2018 13:54:05 3044F Most recent hemoglobin A1c (HbA1c) level less than 7.0% (DM) 06/03/2018 08:23:02 64077 Office or other outpatient visit for the [...] high severity. Physicians typically spend 25 minutes wnrz-xi-gmki with the patient and/or family. 06/03/2018 08:23:02 31021 Hemoglobin; glycosylated (A1C) by device cleared by FDA for home use 06/03/2018 08:23:02 3045F Most recent hemoglobin A1c (HbA1c) level 7.0-9.0% (DM) 03/27/2018 08:56:44 53256 Office or other outpatient visit for the [...] moderate severity. Physicians typically spend 15 minutes jyfp-ln-inve with the patient and/or family. 03/27/2018 08:56:44 3045F Most recent hemoglobin A1c (HbA1c) level 7.0-9.0% (DM) 03/27/2018 08:56:44 60219 Hemoglobin; glycosylated (A1C) by device cleared by FDA for home use 03/27/2018 08:56:44 G8427 Eligible clinician attests to documenting in the medical record they obtained, updated, or reviewed the patient's current medications 12/26/2017 08:55:27 80597 Office or other outpatient visit for the [...] high severity. Physicians typically spend 25 minutes ynhh-sz-ezzp with the patient and/or family. 12/26/2017 08:55:27 3045F Most recent hemoglobin A1c (HbA1c) level 7.0-9.0% (DM) 12/26/2017 08:55:27 90447 Hemoglobin; glycosylated (A1C) by device cleared by FDA for home use 12/26/2017 08:55:27 1036F Current tobacco non-user (CAD, CAP, COPD, PV) (DM) (IBD) 12/26/2017 08:55:27 G8427 Eligible clinician attests to documenting in the medical record they obtained, updated, or reviewed the patient's current medications 12/26/2017 08:55:27 2021F Dilated retinal eye exam with interpretation by an individual small group instructor or director of enterprise strategy documented and reviewed (DM) 09/24/2017 08:27:29 03736 Office or other outpatient visit for the [...] high severity. Physicians typically spend 25 minutes gqea-nu-nsuz with the patient and/or family. 09/24/2017 08:27:29 19930 Hemoglobin; glycosylated (A1C) by device cleared by FDA for home use 09/24/2017 08:27:29 3045F Most recent hemoglobin A1c (HbA1c) level 7.0-9.0% (DM) 09/24/2017 08:27:29 1036F Current tobacco non-user (CAD, CAP, COPD, PV) (DM) (IBD) 06/02/2017 08:22:37 83526 Periodic comprehensive preventive medicine reevaluation and management [...] CAP, COPD, PV) (DM) (IBD) 06/02/2017 08:22:37 75938 Hemoglobin; glycosylated (A1C) by device cleared by FDA for home use 03/07/2017 09:18:02 02536 Office or other outpatient visit for the [...] high severity. Physicians typically spend 25 minutes haji-ka-nbvt with the patient and/or family. 03/07/2017 09:18:02 53814 Hemoglobin; glycosylated (A1C) by device cleared by FDA for home use 01/15/2017 08:13:41 47326 Office or other outpatient visit for the [...] high severity. Physicians typically spend 25 minutes bcfa-fu-jhhz with the patient and/or family. 11/11/2016 09:37:13 76301 Hemoglobin; glycosylated (A1C) by device cleared by FDA for home use 11/06/2016 08:26:32 00349 Office or other outpatient visit for the [...] moderate severity. Physicians typically spend 15 minutes vdwi-hr-mdvb with the patient and/or family. 09/04/2016 09:23:52 01204 Office or other outpatient visit for the [...] moderate severity. Physicians typically spend 15 minutes zbel-hl-ldhf with the patient and/or family. 07/10/2016 08:21:01 42373 Office or other outpatient visit for the [...] high severity. Physicians typically spend 25 minutes kpvf-tz-tbre with the patient and/or family. 07/10/2016 08:21:01 85835 Hemoglobin; glycosylated (A1C) by device cleared by FDA for home use 05/15/2016 08:27:09 74415 Office or other outpatient visit for the [...] moderate severity. Physicians typically spend 15 minutes rixy-ms-dpfw with the patient and/or family. 05/15/2016 08:27:09 62893 Hemoglobin; glycosylated (A1C) by device cleared by FDA for home use 05/15/2016 08:27:09 G0008 ADMINISTRATION OF FLU VACCINE (V04.81) 05/15/2016 08:27:09 Q2037 FLUVRIN 03/18/2016 08:09:18 08951 Office or other outpatient visit for the [...] high severity. Physicians typically spend 25 minutes luqq-vk-ymuw with the patient and/or family. 01/22/2016 08:23:52 59091 Collection of venous blood by venipuncture 01/22/2016 08:23:52 25737 Office or other outpatient visit for the [...] high severity. Physicians typically spend 25 minutes mlwj-qg-srgg with the patient and/or family. 12/15/2015 12:17:35 53133 Removal impacted cerumen (separate procedure), 1 or both ears 12/15/2015 12:17:35 65038 Office or other outpatient visit for the [...] moderate severity. Physicians typically spend 15 minutes qmht-qa-tgxi with the patient and/or family. 11/17/2015 08:15:21 14389 Collection of venous blood by venipuncture 11/17/2015 08:15:21 31795 Office or other outpatient visit for the [...] high severity. Physicians typically spend 40 minutes rwxk-xx-kbkl with the patient and/or family. 11/17/2015 08:15:21 94617 Hemoglobin; glycosylated (A1C) by device cleared by FDA for home use 09/27/2015 08:29:20 25695 Periodic comprehensive preventive medicine reevaluation and management of an individual including an age and gender appropriate history, examination, counseling/anticipatory guidance/risk factor reduction interventions, and the ordering of laboratory/diagnostic procedures, established patient; 40-64 years 09/27/2015 08:29:20 04526 Collection of venous blood by venipuncture 09/27/2015 08:29:20 93309 Hemoglobin; glycosylated (A1C) by device cleared by FDA for home use 08/11/2015 08:14:29 93057 Office or other outpatient visit for the [...] moderate severity. Physicians typically spend 15 minutes fiai-mt-rinv with the patient and/or family. 06/19/2015 08:27:11 85646 Office or other outpatient visit for the [...] moderate severity. Physicians typically spend 15 minutes njbk-ac-slhp with the patient and/or family. 04/26/2015 08:20:21 04647 Office or other outpatient visit for the [...] moderate severity. Physicians typically spend 15 minutes zdvm-ve-tzvt with the patient and/or family. 04/26/2015 08:20:21 29558 Hemoglobin; glycosylated (A1C) by device cleared by FDA for home use 01/18/2015 08:11:52 97113 Office or other outpatient visit for the [...] moderate severity. Physicians typically spend 15 minutes tivo-ew-iils with the patient and/or family. 11/30/2014 08:15:54 90046 Office or other outpatient visit for the [...] high severity. Physicians typically spend 25 minutes nulm-ac-wavg with the patient and/or family. 11/30/2014 08:15:54 34242 Collection of venous blood by venipuncture 11/30/2014 08:15:54 51056 Hemoglobin; glycosylated (A1C) by device cleared by FDA for home use 10/19/2014 00:00:00 03675 Collection of venous blood by venipuncture 10/19/2014 00:00:00 00209 Office or other outpatient visit for the [...] moderate severity. Physicians typically spend 15 minutes byfk-gr-ireh with the patient and/or family. 09/16/2014 00:00:00 84817 Office or other outpatient visit for the [...] moderate severity. Physicians typically spend 15 minutes psvt-pa-ynmt with the patient and/or family. 09/14/2014 00:00:00 62219 Office or other outpatient visit for the [...] moderate severity. Physicians typically spend 15 minutes vglc-tm-zorl with the patient and/or family. 08/22/2014 15:40:11 52281 INFLUENZA VACCINATION 08/22/2014 15:40:11 69200 Periodic comprehensive preventive medicine reevaluation and management of an individual including an age and gender appropriate history, examination, counseling/anticipatory guidance/risk factor reduction interventions, and the ordering of laboratory/diagnostic procedures, established patient; 40-64 years 08/22/2014 15:40:11 18149 Collection of venous blood by venipuncture 08/22/2014 15:40:11 Q2037 FLUVRIN 05/09/2014 00:00:00 72243 Office or other outpatient visit for the [...] moderate severity. Physicians typically spend 15 minutes vfyb-nd-ckxn with the patient and/or family. 05/09/2014 00:00:00 30975 Hemoglobin; glycosylated (A1C) by device cleared by FDA for home use 03/16/2014 00:00:00 76371 Office or other outpatient visit for the [...] high severity. Physicians typically spend 25 minutes hbhz-kg-opyt with the patient and/or family. 03/16/2014 00:00:00 56779 Hemoglobin; glycosylated (A1C) by device cleared by FDA for home use 11/05/2013 00:00:00 06637 Office or other outpatient visit for the [...] moderate severity. Physicians typically spend 15 minutes wldh-iw-nytp with the patient and/or family. 11/05/2013 00:00:00 97512 Collection of venous blood by venipuncture 11/05/2013 00:00:00 34156 Hemoglobin; glycosylated (A1C) by device cleared by FDA for home use 06/11/2013 00:00:00 51006 Periodic comprehensive preventive medicine reevaluation and management of an individual including an age and gender appropriate history, examination, counseling/anticipatory guidance/risk factor reduction interventions, and the ordering of laboratory/diagnostic procedures, established patient; 40-64 years 06/11/2013 00:00:00 69744 Hemoglobin; glycosylated (A1C) by device cleared by FDA for home use 06/09/2013 08:31:54 04306 Office or other outpatient visit for the [...] moderate severity. Physicians typically spend 15 minutes xbqf-ke-zkiv with the patient and/or family. 02/17/2013 08:29:32 00457 Office or other outpatient visit for the [...] moderate severity. Physicians typically spend 15 minutes zqvw-ky-xgvo with the patient and/or family. 02/17/2013 08:29:32 66437 Collection of venous blood by venipuncture 02/17/2013 08:29:32 42094 Hemoglobin; glycosylated (A1C) by device cleared by FDA for home use 11/02/2012 08:13:33 29866 Periodic comprehensive preventive medicine reevaluation and management of an individual including an age and gender appropriate history, examination, counseling/anticipatory guidance/risk factor reduction interventions, and the ordering of laboratory/diagnostic procedures, established patient; 40-64 years 11/02/2012 08:13:33 19836 Hemoglobin; glycosylated (A1C) by device cleared by FDA for home use 08/28/2012 08:54:25 00807 Office or other outpatient visit for the [...] moderate severity. Physicians typically spend 15 minutes cios-az-tflf with the patient and/or family. 08/05/2012 11:43:02 76464 Office or other outpatient visit for the [...] moderate severity. Physicians typically spend 15 minutes imrx-oj-ixdn with the patient and/or family. 08/05/2012 11:43:02 78732 Hemoglobin; glycosylated (A1C) by device cleared by FDA for home use 02/26/2012 08:27:00 33388 Collection of venous blood by venipuncture 02/26/2012 08:27:00 31292 Office or other outpatient visit for the [...] high severity. Physicians typically spend 25 minutes jvlp-fi-hlei with the patient and/or family. 10/23/2011 08:31:03 24079 Office or other outpatient visit for the [...] moderate severity. Physicians typically spend 15 minutes nrgm-lf-csbh with the patient and/or family. 10/23/2011 08:31:03 98561 Hemoglobin; glycosylated (A1C) by device cleared by FDA for home use 08/21/2011 08:26:48 64930 Collection of venous blood by venipuncture 08/21/2011 08:26:48 78161 Office or other outpatient visit for the [...] moderate severity. Physicians typically spend 15 minutes brnx-aw-pjpn with the patient and/or family. 06/19/2011 08:43:09 09344 INFLUENZA VACCINATION 06/19/2011 08:43:09 83613 Collection of venous blood by venipuncture 06/19/2011 08:43:09 93351 Immunization administration (includes percutaneous, intradermal, subcutaneous, or intramuscular injections); one vaccine (single or combination vaccine/toxoid) 06/19/2011 08:43:09 74053 Office or other outpatient visit for the [...] high severity. Physicians typically spend 25 minutes rkad-hs-xqam with the patient and/or family. 03/08/2011 08:41:01 43069 Office or other outpatient visit for the [...] high severity. Physicians typically spend 25 minutes xfya-wr-ggkw with the patient and/or family. 12/26/2010 08:18:16 90737 Collection of venous blood by venipuncture 12/26/2010 08:18:16 46713 Office or other outpatient visit for the [...] moderate severity. Physicians typically spend 15 minutes qrut-bq-rpxv with the patient and/or family. 12/14/2010 08:19:33 60389 Office or other outpatient visit for the [...] high severity. Physicians typically spend 25 minutes jcdq-su-waor with the patient and/or family. 09/24/2010 08:30:35 40429 Office or other outpatient visit for the [...] high severity. Physicians typically spend 25 minutes ogxe-ss-anmq with the patient and/or family. 08/29/2010 00:00:00 04061 Office or other outpatient visit for the [...] high severity. Physicians typically spend 25 minutes oryr-fk-tvhc with the patient and/or family. 06/27/2010 00:00:00 60818 Office or other outpatient visit for the [...] high severity. Physicians typically spend 25 minutes vuao-or-czgp with the patient and/or family. 06/27/2010 00:00:00 G8553 AT LEASTONE PRESCRIPTION CREATED DURING THE ENCOUNTER WAS GENERATED AND TRANSMITTED ELECTRONICALLY USING A [employer] SYSTEM 06/27/2010 00:00:00 73980 Collection of venous blood by venipuncture 06/13/2010 00:00:00 71565 Office or other outpatient visit for the [...] moderate severity. Physicians typically spend 15 minutes ihab-uy-svqg with the patient and/or family. 03/23/2010 00:00:00 81324 Office or other outpatient visit for the [...] high severity. Physicians typically spend 25 minutes tnoi-df-lbwv with the patient and/or family. 03/23/2010 00:00:00 38828 Collection of venous blood by venipuncture 01/26/2010 00:00:00 15022 Office or other outpatient visit for the [...] high severity. Physicians typically spend 25 minutes cbti-gn-lsaf with the patient and/or family. 12/20/2009 00:00: 74284 Collection of venous blood by venipuncture 12/20/2009 00:00:00 86059 Office or other outpatient visit for the [...] moderate severity. Physicians typically spend 15 minutes qsqd-tw-rcsa with the patient and/or family. 09/18/2009 00:00: 28279 Office or other outpatient visit for the [...] high severity. Physicians typically spend 25 minutes pjmg-wl-aqhs with the patient and/or family. 09/18/2009 00:00: 25504 Collection of venous blood by venipuncture 06/28/2009 00:00:00 58895 Office or other outpatient visit for the [...] high severity. Physicians typically spend 25 minutes yqxp-ot-airl with the patient and/or family. 06/16/2009 00:00:00 60581 Office or other outpatient visit for the [...] high severity. Physicians typically spend 25 minutes ebxy-vt-jvnp with the patient and/or family. 06/16/2009 00:00:00 09520 Blood, occult, by peroxidase activity (eg, guaiac), qualitative; feces, consecutive collected specimens with single determination, for colorectal neoplasm screening (ie, patient was provided 3 cards or single triple card for consecutive collection) 06/16/2009 00:00:00 08382 Collection of venous blood by venipuncture -- 78014 Collection of v enous blood by venipuncture [...] for Exam: Chest Pain Stationary ECG Study [facility] - ED Test Date: 2016-04-20 Pat Name: ESTRELLA MENDOZA Department: Room: - Gender: M Service Dispatcher: mr : [id number] Requested By: Jung Sofia Order Number: [id number] Reading MD: Shira Otero Measurements Intervals [place] Rate: 77 P: 68 MO: 152 QRS: -30 QRSD: 100 T: 44 QT: 384 QTc: 437 Interpretive Statements SINUS RHYTHM BORDERLINE LEFT AXIS DEVIATION LOW VOLTAGE LIMB NSTTW ABNORMALITY NO PRIOR FOR COMPARISON Electronically Signed On 04-21-2016 20:05:36 EDT by Shira Otero DD: PEDRO 04/20/2016 1312 DT: [place]ET[place] 04/21/20162004 DS: PEDRO 04/21/20162004 The Following Link and Pin can be used to access images associated with this report: [email or web address] N/A N/A 04/20/2016 13:07:00 HEMOGLOBIN A1c [...] Observed Smoking Status Former smoker, [[facility]OME D-CT: [id number]], 75.00 pk yrs/20.00 yrs quit 11/30/2014 - 11/30/2014 TREATMENT PLAN Encounter Date [facility] 09/27/2020 13:05:10 two extra tylenol tid and [...] # 60, RF: 2. (Transmitted by Colleen WeatherfordDO joelle) ORDERED/ADVISED: Order Date 08-15-2020 - CBC with [...] Appointment scheduled for a telehealth visit to [facility] on 03/22/2020. 03/15/2020 12:24:05 HgA1c is 10.0% Appointment scheduled for a telehealth visit to [facility] on 03/22/2020. 10/25/2019 08:14:07 Plan printed [...] 30, RF: 0. (Transmitted by Colleen Huang, ) DISCONTINUE: atorvastatin 10 mg oral tablet one [...] # 200, RF: 3. (Transmitted by Colleen Weatherford, DO) PRESCRIBE: atorvastatin 10 mg oral tablet, [...] the Left Deltoid (Mfg: SEQIRUS lot no. [id number], expires 02/29/2020) ORDERED/ADVISED: Order Date 08-13-2019 - [...] the Left Deltoid (Mfg: SEQIRUS lot no. [id number], expires 02/29/2020) ORDERED/ADVISED: Order Date 08-13-2019 - [...] the Left Deltoid (Mfg: SEQIRUS lot no. [id number], expires 02/29/2020) ORDERED/ADVISED: Order Date 08-13-2019 - [...] 1. (Transmitted by Colleen Huang DO) Barber snsullyker PROVIDED HM: CDSMP Given: "the obesity code", " the diabetes code", and "quide to fasting" by Flakito Estes MD You can download a [email or web address] melba to your computer and get these books on [employer]. Watch the movie "the magic pill" documentary on [employer] [employer] Flak[employer] Estes [employer] and watch [...] Flakito Estes MD You can download a [email or web address] melba to your computer and get these books on Cellay. Watch the movie "the magic pill" documentary on [email or web address] and watch it 06/18/2019 09:23:34 Plan printed and provided to patient: PRESCRIBE: ibuprofen 800 mg oral tablet, one po tid with food, # 90, RF: 1. (Transmitted by Colleen Huang DO) Barber ashwin PROVIDED HM: CDSMP Given: "the obesity code", " the diabetes code", and "quide to fasting" by Flakito Estes MD You can download a [email or web address] melba to your computer and get these books on Cellay. Watch the movie "the magic pill" documentary on [employer] and watch it 03/24/2019 08:14:04 Plan printed and provided to patient: PROVIDED HM: CDSMP Given: "the obesity code", " the diabetes code", and "quide to fasting" by lFakito Estes MD You can download a sylvia melba to your iphone for free. then you can go to [employer] and download books at a reduced jean. [...] for free. then you can go to [employer] and download books at a reduced jean. [...] for free. then you can go to [employer] and download books at a reduced jean. Watch the movie called "the magic pill" PROVIDED HM: Recommendations for Testing HgbA1C in Individuals with Diabetes Mellitus Given: 8.1% Counseling and coordination of care: time a significant factor for this patient encounter...30minutes [facility] 12/14/2018 08:01:40 PRESCRIBE: ibuprofen 800 mg oral [...] factor for this patient encounter...25minutes [facility] 12/14/2018 08:01:40 PRESCRIBE: ibuprofen 800 mg oral [...] # 360, RF: 2. (Transmitted by Colleen Hunag DO) PRESCRIBE: metFORMIN [...] # 5, RF: 5. 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 (Transmitted by Colleen Reina, ) PRESCRIBE: sertraline 100 mg oral tablet, one [...] # 90, RF: 3. (Transmitted by Colleen ReinaDO joelle) CHANGED Current Meds: Trulicity Pen 1.5 mg/0.5 mL subcutaneous solution REMOVED from Current Meds: Lantus Solostar Pen 100 units/mL subcutaneous solution, 14 units sq daily, # 5, RF: 0. (Transmitted by Colleen WeatherfordDO joelle) Date Prescribed: 06/26/2018 REMOVED from Current [...] # 5, RF: 0. (Transmitted by Colleen WeatherfordDO joelle) Date Prescribed: 06/26/2018 REMOVED from Current [...] daily, # 90, RF: 3. (Transmitted by [employer]ovolta[employer]ard, DO) PRESCRIBE: ProAir HFA 90 mcg/inh inhalation aerosol, two puffs qid prn wheeze, # 1, RF: 3. (Transmitted by [employer], DO) PRESCRIBE: metFORMIN 500 mg oral tablet, one po bid pc, # 180, RF: 3. (Transmitted by [employer], DO) PRESCRIBE: lisinopril 10 mg oral tablet, one po daily, # 90, RF: 3. (Transmitted by [employer], DO) PRESCRIBE: Linzess 145 mcg oral capsule, one po daily prn constipation, # 90, RF: 3. (Transmitted by [employer], DO) PRESCRIBE: Lantus Solostar Pen 100 units/mL subcutaneous solution, 25 units hs daily, # 5, RF: 5. (Transmitted by [employer], DO) PRESCRIBE: glipiZIDE 10 mg oral tablet, one po daily, # 90, RF: 3. (Transmitted by [employer], DO) PRESCRIBE: BD Pen Needle Mini U/F, use as directed for lantus injection, # 100, RF: 3. (Transmitted by [employer], DO) PRESCRIBE: atorvastatin 10 mg oral tablet, one po daily, # 90, RF: 3. (Transmitted by [employer], DO) He is walking at least a [...] diabetes related complication....14% decrease in risk of CA.....12%decrease risk of stroke...and a 37% decrease risk [...] we have to work with? Time/Travel/Tastes/Treatments?? Arrange: Specialty Cook? www.[email or web address] Banana Loader?www.diabeteseducator.org Pharmacy/Pharmacy benefits Literature? Recipes Diabetes [place] www.diabetes.org www.ncbde.org www.diabeeseducator.org/deap www.ndep.nih.gov www.diabetes.org www.learningaboutdiabetes.org www.diabeticconnect.com www.[employer] PharmaceuticalsnoSigniant.[employer] www.diabeteswhattDesignArt NetworksnoSigniant.com www.peersforprogress.org [place] Read about tanner [...] # 90, RF: 3. (Transmitted by Colleen Weatherford, DO) PRESCRIBE: Linzess 145 mcg oral capsule, one po daily prn constipation, # 90, RF: 3. (Transmitted by Colleen Weatherford, DO) PRESCRIBE: Lantus Solostar Pen 100 units/mL subcutaneous solution, 25 units hs daily, # 5, RF: 5. (Transmitted by ColleenCapseoard, DO) PRESCRIBE: glipiZIDE 10 mg oral tablet, one po daily, # 90, RF: 3. (Transmitted by Colleen Weatherford, DO) PRESCRIBE: BD Pen Needle Mini U/F, use as directed for lantus injection, # 100, RF: 3. (Transmitted by ColleenCapseoard, DO) PRESCRIBE: atorvastatin 10 mg oral tablet, one po daily, # 90, RF: 3. (Transmitted by Colleen Weatherford, DO) He is walking at least a [...] diabetes related complication....14% decrease in risk of CA.....12%decrease risk of stroke...and a 37% decrease risk [...] we have to work with? Time/Travel/Tastes/Treatments?? Arrange: Specialty Cook? www.[email or web address] Banana Loader?www.diabeteseducator.org Pharmacy/Pharmacy benefits Literature? Recipes Diabetes [place] www.diabetes.org www.ncbde.org www.diabeeseducator.org/deap www.ndep.nih.gov www.diabetes.org www.learningaboutdiabetes.org www.diabeticconnect.[employer] www.[employer] PharmaceuticalsnoSigniant.[employer] www.diabeteswhattDesignArt Networksnow.com www.peersforprogress.org [place] Read about tanner [...] diabetes related complication....14% decrease in risk of CA.....12%decrease risk of stroke...and a 37% decrease risk [...] we have to work with? Time/Travel/Tastes/Treatments?? Arrange: Specialty Cook? www.[email or web address] Banana Loader?www.diabeteseducator.org Pharmacy/Pharmacy benefits Literature? Recipes Diabetes [place] www.diabetes.org www.ncbde.org www.diabeeseducator.org/deap www.ndep.nih.gov www.diabetes.org www.learningaboutdiabetes.org www.diabeticconnect.com www.[employer] PharmaceuticalsnoSigniant.[employer] www.diabeteswhattDesignArt Networksnow.com www.peersforprogress.org [place] Read about cristinoalexandrokaleb [...] 0. (Transmitted by Colleen Huang DO) Lloyd garcia and saroj. PROVIDED HM: High Blood Pressure in Adults: Screening Given: 138/80 PROVIDED HM: DSME Given: Ask: Did you know? For every 1% decrease in HGBAC, there is evidence for 21% decrease in diabetes related complication....14% decrease in risk of CA.....12%decrease risk of stroke...and a 37% decrease risk [...] What information do you need? Assist: lloyd Garcia/saroj I can get you the information/tools you desire? Can I get you the information/tools you desire? What do we have to work with? Time/Travel/Tastes/Treatments?? Arrange: Specialty Cook? www.[email or web address] Banana Loader?www.diabeteseducator.org Pharmacy/Pharmacy benefits Literature? Recipes Diabetes [place] www.diabetes.org www.ncbde.org www.diabeeseducator.org/deap www.ndep.nih.gov www.diabetes.org www.learningaboutdiabetes.org www.diabeticconnect.com www.Great Lakes Pharmaceuticalsnow.[employer] www.diabeteswhattDesignArt Networksnow.[employer] www.peersforprogress.org [place] PROVIDED HM: Obesity: [...] diabetes related complication....14% decrease in risk of CA.....12%decrease risk of stroke...and a 37% decrease risk [...] What information do you need? Assist: lloyd Garcia/saroj I can get you the information/tools you desire? Can I get you the information/tools you desire? What do we have to work with? Time/Travel/Tastes/Treatments?? Arrange: Specialty Cook? www.eatright.org Banana Loader?www.diabeteseducator.org Pharmacy/Pharmacy benefits Literature? Recipes Diabetes [place] www.diabetes.org www.ncbde.org www.diabeeseducator.org/deap www.ndep.nih.gov www.diabetes.org www.learningaboutdiabetes.org www.diabeticconnect.com www.[employer] PharmaceuticalsnoSigniant.[employer] www.diabeteswhattDesignArt Networksnow.com www.peersforprogress.org [place] PROVIDED HM: Obesity: [...] diabetes related complication....14% decrease in risk of CA.....12%decrease risk of stroke...and a 37% decrease risk [...] What information do you need? Assist: research Glenys/bymorelia I can get you the information/tools you desire? Can I get you the information/tools you desire? What do we have to work with? Time/Travel/Tastes/Treatments?? Arrange: Specialty Cook? www.eatright.org Banana Loader?www.diabeteseducator.org Pharmacy/Pharmacy benefits Literature? Recipes Diabetes [place] www.diabetes.org www.ncbde.org www.diabeeseducator.org/deap www.ndep.nih.gov www.diabetes.org www.learningaboutdiabetes.org www.diabeticconnect.com www.[employer] PharmaceuticalsnoSigniant.[employer] www.diabeteswhattDesignArt Networksnow.com www.peersforprogress.org [place] PROVIDED HM: Obesity: [...] 60, RF: 0. PROVIDED HM: CDSMP Given: [employer] "Addictocarb Carb" Consider the Mediterranean Diet. Eliminate [...] 60, RF: 0. PROVIDED HM: CDSMP Given: [employer]"Addictocarb Carb" Consider the Mediterranean Diet. Eliminate soda.....lose [...] 60, RF: 0. PROVIDED HM: CDSMP Given: [employer] "Addictocarb Carb" Consider the Mediterranean Diet. Eliminate [...] support/Move your body/Think positive/Be good to yourself/ [place] [employer] Diabetic Educators....7 behaviors for diabetes [...] support/Move your body/Think positive/Be good to yourself/ [place] [employer] Diabetic Educators....7 behaviors for diabetes self management. 09/04/2016 09:23:52 Plan printed and provided to patient: PRESCRIBE: oxyCODONE-acetaminophen 5 mg-325 mg oral tablet, one po bid prn pain, # 60, RF: 0. PRESCRIBE: ProAir HFA 90 mcg/inh inhalation aerosol, two puffs qid prn wheeze, # 1, RF: 1. (Transmitted by Colleen Huang, DO) PRESCRIBE: azithromycin 250 mg oral tablet, two po today and one po daily x 4, # 6, RF: 0. (Transmitted by ColleenCapseoard, DO) ORDERED/ADVISED: - CXR - PA & [...] support/Move your body/Think positive/Be good to yourself/ [place] [employer] Diabetic Educators....7 behaviors for diabetes [...] the Left Deltoid (Mfg: OTHER lot no. [id number], expires 01/08/2017) PROVIDED HM: Screening for Depression in Adults Given: Not present Percoset script to [facility] 05/15/2016 08:27:09 Plan printed and provided to patient: PROVIDED VACCINATION: 1 dose of Fluvirin, 0.5 mL IM in the Left Deltoid (Mfg: OTHER lot no. [id number], expires 01/08/2017) PROVIDED HM: Screening for Depression in Adults Given: Not present Percoset script to mg phan 05/15/2016 08:27:09 Plan printed and provided to patient: PROVIDED VACCINATION: 1 dose of Fluvirin, 0.5 mL IM in the Left Deltoid (Mfg: OTHER lot no. [id number], expires 01/08/2017) PROVIDED HM: Screening for Depression in Adults Given: Not present Percoset script to mg phan 03/18/2016 08:09:18 Plan [...] 5, RF: 3. (Transmitted by Colleen Huang, ) PRESCRIBE: BD Pen Needle Mini U/F, use as directed for lantus injection, # 100, RF: 3. (Transmitted by Colleen Huang, DO) PRESCRIBE: Linzess 145 mcg oral capsule, one po daily prn constipation, # 90, RF: 3. (Transmitted by Colleen Huang, ) PRESCRIBE: Zoloft 100 mg oral tablet, one po daily, # 90, RF: 3. (Transmitted by Colleen Huang, DO) PRESCRIBE: metFORMIN 500 mg oral tablet, one po bid pc, # 180, RF: 3. (Transmitted by Colleen Huang, [employer]) PRESCRIBE: lisinopril 10 mg oral tablet, one po daily, # 90, RF: 3. (Transmitted by Colleen Reina, [employer]) PRESCRIBE: glipiZIDE 10 mg oral tablet, one po daily, # 90, RF: 3. (Transmitted by Colleen Weatherford, DO) PRESCRIBE: cholecalciferol 50,000 intl units oral capsule, one po weekly, # 12, RF: 3. (Transmitted by [employer]ard, [employer]) PRESCRIBE: atorvastatin 10 mg oral tablet, one po daily, # 90, RF: 3. (Transmitted by [employer], DO) ORDERED/ADVISED: - CBC with diff (automated) [...] daily, # 1, RF: 5. (Transmitted by ColleenCapseoard, ) PRESCRIBE: Cortisporin-TC otic suspension, 4 gtts into left EAC bid, # 5, RF: 0. (Transmitted by Colleen Renia, ) Increase lantus insulin to 24 units hs [...] # 90, RF: 0. (Transmitted by Colleen Weatherford, ) PRESCRIBE: glipiZIDE 10 mg oral tablet, one po daily, # 90, RF: 0. (Transmitted by Colleen Huang DO) PRESCRIBE: Lantus [...] the Left Deltoid (Mfg: NOVARTIS lot no. 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 [...] bid prn pain, # 60, RF: NONE. 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 [...] Ds) ICD9 Codes (250.00, 600.9, 272.4, 401.9) FOXING CUTTING MACHINE OPERATOR site consulted prior to scheduled drug prescription. [...] # 225, RF: 3. (Transmitted by Colleen Hunag DO) PRESCRIBE: lisinopril 10 mg oral tablet, one po daily, # 90, RF: 3. (Transmitted by Colleen Reina, DO) PRESCRIBE: Crestor 5 mg oral tablet, one half po daily, # 45, RF: 3. (Transmitted by Colleen Weatherford, DO) PRESCRIBE: BD ultrafine needles for byetta injection, one bid as directed, # 180, RF: 3. (Transmitted by ColleenCapseoard, DO) PRESCRIBE: Byetta Prefilled Pen 10 mcg/0.04 mL subcutaneous solution, 10mcg sq bid ac, # 180, RF: 3. (Transmitted by [employer], DO) ORDERED/ADVISED: - CBC with diff (automated) [...] RF: 3. (Transmitted by Colleen Huang, ) All sent to [facility] today [...] ml IM in the L DELTOID (Mfg: SynapsifyINE lot no. [id number], expires 02/28/2012) ORDERED/ADVISED: - Urine microalbumin (AODM) [...] PRESCRIBE: Gabapentin 100mg, one or two po [id number] prn back pain, # 180, RF: 5. [...]
--- OUTSIDE RECORDS SUMMARY | 2020-10-17 11:14 | CCD ---
Author Author Colleen Huang DO Organization Colleen Huang DO Address [address] [facility] [address] [place], [place] [id number] Care Team Providers Care Fruit Shipper Name Role Phone Reina GOLDEN MA, Celestine Renteria Unavailable Colleen Huang DO Unavailable Colleen Huang DO PCP ENCOUNTERS Encounter Performer Loca tion Date Type II diabetes mellitus poorly control led [SNOMED-CT: 772007775] Dr. Colleen Huang DO 09-15-2020 Nausea and vomiting [SNOMED-CT: 59571829] Dr. Colleen Huang DO 09-15-2020 Emotional stress [SNOMED-CT: 527359487] Dr. Colleen Huang DO 08-30-2020 Type II diabetes mellitus poorly control led [SNOMED-CT: 334693624] Dr. Colleen Huang DO 08-30-2020 Acute pancreatitis [SNOMED-CT: 725009308] Dr. Colleen Huang DO 08-23-2020 Type II diabetes mellitus poorly control led [SNOMED-CT: 725730755] Dr. Colleen Huang DO 08-23-2020 Generalised itching [SNOMED-CT: 851757226] Celestine Huang DO 08-23-2020 Thyroiditis [SNOMED-CT: 33024024] Dr Joe Huang DO 08-23-2020 Chronic kidney disease [SNOMED-CT: 813491710] Dr. Colleen Huang DO 08-23-2020 Acute pancreatitis [SNOMED-CT: 903996588] Dr. Colleen Huang, DO 08-15-2020 Type II diabetes mellitus poorly control led [SNOMED-CT: 339740694] Dr. Colleen Huang, DO 08-15-2020 Generalised itching [SNOMED-CT: 897157265] Celestine Huang, DO 08-15-2020 Acute pancreatitis [SNOMED-CT: 085119634] Dr. Colleen Huang, DO 08-14-2020 Type II diabetes mellitus poorly control led [SNOMED-CT: 732484187] Dr. Colleen Huang, DO 08-14-2020 Other hyperlipidemia [ICD10: E78.49] Dr. Colleen Huang, DO 08-14-2020 Balanitis [SNOMED-CT: 40666564] Dr. Colleen Huang, DO 05-30-2020 Type II diabetes mellitus poorly control led [SNOMED-CT: 961662894] Dr. Colleen Huang, DO 05-30-2020 Type II diabetes mellitus poorly control led [SNOMED-CT: 342835549] Dr. Colleen Huang, DO 03-22-2020 Other hyperlipidemia [ICD10: E78.49] Dr. Colleen Huang, DO 03-22-2020 DIABETES MELLITUS WITHOUT MENTION OF COM PLICATION [SNOMED-CT: 678776039] N/A N/A 03-15-2020 Acute rhinosinusitis [SNOMED-CT: 594650461] Dr. Colleen Huang, DO 09-08-2019 Upper respiratory infection [SNOMED-CT: 79563048] Dr. Colleen Huang, DO 09-08-2019 DIABETES WITH RENAL MANIFESTATIONS TYPE II OR UNSPECIFIED TYPE NOT STATED UNCONTROLLED [SNOMED-CT: 682007564] Dr. Colleen Huang, DO 08-13-2019 UNSPECIFIED ESSENTIAL HYPERTENSION [SNOMED-CT: 8155264 0] N/A N/A 08-13-2019 ANXIETY STATE UNSPECIFIED [SNOMED-CT: 888039036] Celestine Huang, DO 08-13-2019 CHRONIC KIDNEY DISEASE STAGE II (MILD) [SNOMED-CT: 431 466228] Dr. Colleen Huang, DO 08-13-2019 Other specified vaccination [ICD10: Z23] Celestine Huang, DO 08-13-2019 Pain in left foot [SNOMED-CT: 476930187262704] Dr. Colleen Huang, DO 06-18-2019 DIABETES MELLITUS WITHOUT MENTION OF COM PLICATION [SNOMED-CT: 590871576] Celestine Huang, DO 06-18-2019 DIABETES WITH RENAL MANIFESTATIONS TYPE II OR UNSPECIFIED TYPE NOT STATED UNCONTROLLED [SNOMED-CT: 168655538] Dr. Colleen Huang, DO 03-24-2019 Contusion of lower back and pelvis, init ial encounter [ICD10: S30.0XXA] Dr. Colleen Huang, DO 12-14-2018 DIABETES WITH RENAL MANIFESTATIONS TYPE II OR UNSPECIFIED TYPE NOT STATED UNCONTROLLED [SNOMED-CT: 953733972] Dr. Colleen Huang, DO 12-14-2018 DIABETES MELLITUS WITHOUT MENTION OF COM PLICATION [SNOMED-CT: 138518647] N/A N/A 09-07-2018 DIABETES WITH RENAL MANIFESTATIONS TYPE II OR UNSPECIFIED TYPE NOT STATED UNCONTROLLED [SNOMED-CT: 775504433] Dr. Colleen Huang, DO 07-20-2018 Other hyperlipidemia [ICD10: E78.49] Dr. Colleen Huang, DO 07-20-2018 Back pain [SNOMED-CT: 872601643] Dr. Colleen Huang, DO 06-03-2018 DIABETES WITH RENAL MANIFESTATIONS TYPE II OR UNSPECIFIED TYPE NOT STATED UNCONTROLLED [SNOMED-CT: 517854108] Dr. Colleen Huang, DO 06-03-2018 Arthropathy of left shoulder [SNOMED-CT: 1278667735799 9103] Dr. Colleen Huang, DO 06-03-2018 DIABETES WITH RENAL MANIFESTATIONS TYPE II OR UNSPECIFIED TYPE NOT STATED UNCONTROLLED [SNOMED-CT: 912593527] Dr. Colleen Huang, DO 03-27-2018 Viral gastroenteritis [SNOMED-CT: 957386451] Dr. Colleen Huang, DO 12-26-2017 DIABETES WITH RENAL MANIFESTATIONS TYPE II OR UNSPECIFIED TYPE NOT STATED UNCONTROLLED [SNOMED-CT: 469600557] Dr. Colleen Huang, DO 12-26-2017 Cat bite [SNOMED-CT: 468672171] Dr. Colleen Huang, DO 12-26-2017 DIABETES WITH RENAL MANIFESTATIONS TYPE II OR UNSPECIFIED TYPE NOT STATED UNCONTROLLED [SNOMED-CT: 694989537] Dr. Colleen Huang, DO 09-24-2017 DIABETES MELLITUS WITHOUT MENTION OF COM PLICATION [SNOMED-CT: 432292716] Celestine Huang, DO 09-24-2017 ROUTINE GENERAL MEDICAL EXAMINATION AT A HEALTH CARE FACILITY [SNOMED-CT: 368867846] Celestine Huang, DO 06-02-2017 DIABETES WITH RENAL MANIFESTATIONS TYPE II OR UNSPECIFIED TYPE NOT STATED UNCONTROLLED [SNOMED-CT: 262961033] Dr. Colleen Huang, DO 06-02-2017 Allergic contact dermatitis of male melissa isamar [SNOMED-CT: 820079245] Dr. Colleen Huang, DO 03-07-2017 Other genital problems [ICD10: R68.89] Dr. Colleen Huang, DO 03-07-2017 DIABETES WITH RENAL MANIFESTATIONS TYPE II OR UNSPECIFIED TYPE NOT STATED UNCONTROLLED [SNOMED-CT: 924253498] Dr. Colleen Huang, DO 03-07-2017 Back pain [SNOMED-CT: 628418471] Dr. Colleen Huang, DO 03-07-2017 LUMBAGO [SNOMED-CT: 717036457] Jose Angel Huang, DO 03-07-2017 Penile cellulitis/abscess/boil [SNOMED-CT: 687390790] Dr. Colleen Huang, DO 01-15-2017 DIABETES WITH RENAL MANIFESTATIONS TYPE II OR UNSPECIFIED TYPE NOT STATED UNCONTROLLED [SNOMED-CT: 723771238] Dr. Colleen Huang, DO 01-15-2017 Back pain [SNOMED-CT: 128969762] Dr. Colleen Huang, DO 11-06-2016 DIABETES WITH RENAL MANIFESTATIONS TYPE II OR UNSPECIFIED TYPE NOT STATED UNCONTROLLED [SNOMED-CT: 277064200] Dr. Colleen Huang, DO 11-06-2016 UNSPECIFIED ESSENTIAL HYPERTENSION [SNOMED-CT: 4078997 0] N/A N/A 11-06-2016 Bronchospasm [SNOMED-CT: 9870490] Dr Joe Huang, DO 09-04-2016 Back pain [SNOMED-CT: 626668123] Dr. Colleen Huang, DO 09-04-2016 Primary atypical interstitial pneumonia [SNOMED-CT: 35 834774] Dr. Colleen Huang, DO 09-04-2016 Back pain [SNOMED-CT: 625947792] Dr. Colleen Huang, DO 07-10-2016 DIABETES WITH RENAL MANIFESTATIONS TYPE II OR UNSPECIFIED TYPE NOT STATED UNCONTROLLED [SNOMED-CT: 190443474] Dr. Colleen Huang, DO 07-10-2016 Back pain [SNOMED-CT: 045883713] Dr. Colleen Huang, DO 05-15-2016 CHRONIC KIDNEY DISEASE STAGE II (MILD) [SNOMED-CT: 431 858659] Dr. Colleen Huang, DO 05-15-2016 DIABETES WITH RENAL MANIFESTATIONS TYPE II OR UNSPECIFIED TYPE NOT STATED UNCONTROLLED [SNOMED-CT: 618730423] Dr. Colleen Huang, DO 05-15-2016 LUMBAGO [SNOMED-CT: 246829038] Jose Angel Huang, DO 05-15-2016 Other specified vaccination [ICD10: Z23] Celestine Huang, DO 05-15-2016 Back pain [SNOMED-CT: 685491937] Dr. Colleen Huang, DO 03-18-2016 DIABETES WITH RENAL MANIFESTATIONS TYPE II OR UNSPECIFIED TYPE NOT STATED UNCONTROLLED [SNOMED-CT: 997319183] Dr. Colleen Huang, DO 03-18-2016 DIABETES WITH RENAL MANIFESTATIONS TYPE II OR UNSPECIFIED TYPE NOT STATED UNCONTROLLED [SNOMED-CT: 441121968] Dr. Colleen Huang, DO 01-22-2016 Exogenous hyperlipidemia [SNOMED-CT: 426629617] Dr. Colleen Huang, DO 01-22-2016 ANXIETY STATE UNSPECIFIED [SNOMED-CT: 389691899] Celestine Huang, DO 01-22-2016 DIABETES WITH RENAL MANIFESTATIONS TYPE II OR UNSPECIFIED TYPE NOT STATED UNCONTROLLED [SNOMED-CT: 730374760] Dr. Colleen Huang, DO 12-15-2015 Otitis externa [SNOMED-CT: 1628697] Celestine Huang, DO 12-15-2015 Impacted cerumen [SNOMED-CT: 04668191] Celestine Huang, DO 12-15-2015 DIABETES WITH RENAL MANIFESTATIONS TYPE II OR UNSPECIFIED TYPE NOT STATED UNCONTROLLED [SNOMED-CT: 470642446] Dr. Colleen Huang, DO 11-17-2015 Back pain [SNOMED-CT: 187448920] Dr. Colleen Huang, DO 11-17-2015 UNSPECIFIED SLEEP APNEA [SNOMED-CT: 56865592] Celestine Huang, DO 11-17-2015 UNSPECIFIED ESSENTIAL HYPERTENSION [SNOMED-CT: 6015410 0] N/A N/A 11-17-2015 ROUTINE GENERAL MEDICAL EXAMINATION AT A HEALTH CARE FACILITY [SNOMED-CT: 689711841] Celestine Huang, DO 09-27-2015 Back pain [SNOMED-CT: 400439293] Dr. Colleen Huang, DO 08-11-2015 Dysuria-frequency syndrome [SNOMED-CT: 0299589] Dr. Colleen Huang, DO 08-11-2015 LUMBAGO [SNOMED-CT: 890684133] Jose Angel Huang, DO 06-19-2015 CLOSED FRACTURE OF LUMBAR VERTEBRA WITHO UT SPINAL [SNOMED-CT: 92269315] Celestine Huang, DO 06-19-2015 DIABETES WITH RENAL MANIFESTATIONS TYPE II OR UNSPECIFIED TYPE NOT STATED UNCONTROLLED [SNOMED-CT: 949757812] Dr. Colleen Huang, DO 06-19-2015 DIABETES WITH RENAL MANIFESTATIONS TYPE II OR UNSPECIFIED TYPE NOT STATED UNCONTROLLED [SNOMED-CT: 906436338] Dr. Colleen Huang, DO 04-26-2015 Back pain [SNOMED-CT: 668318600] Dr. Colleen Huang, DO 04-26-2015 Other constipation [ICD9: 564.09] Dr Joe Huang, DO 01-18-2015 Back pain [SNOMED-CT: 039280446] Dr. Colleen Huang, DO 01-18-2015 DIABETES WITH RENAL MANIFESTATIONS TYPE II OR UNSPECIFIED TYPE NOT STATED UNCONTROLLED [SNOMED-CT: 567345508] Dr. Colleen Huang, DO 11-30-2014 CHRONIC KIDNEY DISEASE STAGE II (MILD) [SNOMED-CT: 431 464325] Dr. Colleen Huang, DO 11-30-2014 UNSPECIFIED ESSENTIAL HYPERTENSION [SNOMED-CT: 3834587 0] N/A N/A 11-30-2014 DIABETES WITH RENAL MANIFESTATIONS TYPE II OR UNSPECIFIED TYPE NOT STATED UNCONTROLLED [SNOMED-CT: 298784762] Dr. Colleen Huang, DO 10-19-2014 CHRONIC KIDNEY DISEASE STAGE II (MILD) [SNOMED-CT: 431 401326] Dr. Colleen Huang, DO 10-19-2014 DIABETES WITH RENAL MANIFESTATIONS TYPE II OR UNSPECIFIED TYPE NOT STATED UNCONTROLLED [SNOMED-CT: 061037524] Dr. Colleen Huang, DO 09-16-2014 DIABETES WITH RENAL MANIFESTATIONS TYPE II OR UNSPECIFIED TYPE NOT STATED UNCONTROLLED [SNOMED-CT: 561722497] Dr. Colleen Huang, DO 09-14-2014 CHRONIC KIDNEY DISEASE STAGE II (MILD) [SNOMED-CT: 431 809054] Dr. Colleen Huang, DO 09-14-2014 ROUTINE GENERAL MEDICAL EXAMINATION AT A HEALTH CARE FACILITY [SNOMED-CT: 434406903] Celestine Huang, DO 08-22-2014 Other specified vaccination [ICD10: Z23] Celestine Huang, DO 08-22-2014 DIABETES MELLITUS WITHOUT MENTION OF COM PLICATION [SNOMED-CT: 706576622] N/A N/A 05-09-2014 DIABETES MELLITUS WITHOUT MENTION OF COM PLICATION [SNOMED-CT: 315058476] Celestine Huang, DO 03-16-2014 Back pain [SNOMED-CT: 038822737] Dr. Colleen Huang, DO 03-16-2014 CONTACT DERMATITIS AND OTHER ECZEMA UNSP ECIFIED CA [SNOMED-CT: 515596666] N/A N/A 03-16-2014 UNSPECIFIED ESSENTIAL HYPERTENSION [SNOMED-CT: 4449519 0] N/A N/A 03-16-2014 DIABETES MELLITUS WITHOUT MENTION OF COM PLICATION [SNOMED-CT: 691892224] Celestine Huang, DO 11-05-2013 Back pain [SNOMED-CT: 257034515] Dr. Colleen Huang, DO 11-05-2013 CLOSED FRACTURE OF LUMBAR VERTEBRA WITHO UT SPINAL [SNOMED-CT: 41783969] Celestine Huang, DO 11-05-2013 ANXIETY STATE UNSPECIFIED [SNOMED-CT: 098282207] Celestine Huang, DO 11-05-2013 DIABETES MELLITUS WITHOUT MENTION OF COM PLICATION [SNOMED-CT: 415592055] Celestine Huang, DO 06-11-2013 UNSPECIFIED ESSENTIAL HYPERTENSION [SNOMED-CT: 9447054 0] N/A N/A 06-11-2013 INSOMNIA UNSPECIFIED [SNOMED-CT: 460840776] Dr. Colleen Huang, DO 06-09-2013 ANXIETY STATE UNSPECIFIED [SNOMED-CT: 877574027] Celestine Huang, DO 06-09-2013 DIABETES MELLITUS WITHOUT MENTION OF COM PLICATION [SNOMED-CT: 435085302] Celestine Huang, DO 02-17-2013 HYPERPLASIA OF PROSTATE UNSPECIFIED WITH OUT URINAR [SNOMED-CT: 636501944] Celestine Huang, DO 02-17-2013 CLOSED FRACTURE OF LUMBAR VERTEBRA WITHO UT SPINAL [SNOMED-CT: 84326039] Celestine Huang, DO 02-17-2013 UNSPECIFIED ESSENTIAL HYPERTENSION [SNOMED-CT: 3774873 0] N/A N/A 02-17-2013 ROUTINE GENERAL MEDICAL EXAMINATION AT A HEALTH CARE FACILITY [SNOMED-CT: 630285426] Celestine Huang, DO 11-02-2012 DIABETES MELLITUS WITHOUT MENTION OF COM PLICATION [SNOMED-CT: 272080214] Celestine Huang, DO 08-28-2012 LUMBAGO [SNOMED-CT: 636696034] Jose Angel cornel Reina Huang, DO 08-05-2012 DIABETES MELLITUS WITHOUT MENTION OF COM PLICATION [SNOMED-CT: 843945869] Celestine Huang, DO 08-05-2012 UNSPECIFIED ESSENTIAL HYPERTENSION [SNOMED-CT: 0562533 0] N/A N/A 08-05-2012 DIABETES MELLITUS WITHOUT MENTION OF COM PLICATION [SNOMED-CT: 517797945] Celestine Huang, DO 02-26-2012 LUMBAGO [SNOMED-CT: 193045868] Jose Angel cornel Reina Huang, DO 02-26-2012 UNSPECIFIED ESSENTIAL HYPERTENSION [SNOMED-CT: 1042883 0] N/A N/A 02-26-2012 DIABETES MELLITUS WITHOUT MENTION OF COM PLICATION [SNOMED-CT: 469344232] Celestine Huang, DO 10-23-2011 LUMBAGO [SNOMED-CT: 353375005] Jose Angel cornel Reina Huang, DO 10-23-2011 PAIN IN JOINT INVOLVING SHOULDER REGION [SNOMED-CT: 408471926] Celestine Huang, DO 08-21-2011 DIABETES MELLITUS WITHOUT MENTION OF COM PLICATION [SNOMED-CT: 556663999] Celestine Huang, DO 08-21-2011 HYPERPLASIA OF PROSTATE UNSPECIFIED WITH OUT URINAR [SNOMED-CT: 645757836] Celestine Huang, DO 08-21-2011 UNSPECIFIED ESSENTIAL HYPERTENSION [SNOMED-CT: 0716153 0] N/A N/A 08-21-2011 Other specified vaccination [ICD10: Z23] Celestine Huang, DO 08-21-2011 PAIN IN JOINT INVOLVING SHOULDER REGION [SNOMED-CT: 637385571] Celestine Huang, DO 06-19-2011 DIABETES MELLITUS WITHOUT MENTION OF COM PLICATION [SNOMED-CT: 026595769] Celestine Huang, DO 06-19-2011 HYPERPLASIA OF PROSTATE UNSPECIFIED WITH OUT URINAR [SNOMED-CT: 508546271] Celestine Huang, DO 06-19-2011 UNSPECIFIED ESSENTIAL HYPERTENSION [SNOMED-CT: 5661072 0] N/A N/A 06-19-2011 Other specified vaccination [ICD10: Z23] Celestine Huang, DO 06-19-2011 PAIN IN JOINT INVOLVING SHOULDER REGION [SNOMED-CT: 241242570] Celestine Huang, DO 03-08-2011 DIABETES MELLITUS WITHOUT MENTION OF COM PLICATION [SNOMED-CT: 614408894] Celestine Huang, DO 03-08-2011 HYPERPLASIA OF PROSTATE UNSPECIFIED WITH OUT URINAR [SNOMED-CT: 102611451] Celestine Huang, DO 03-08-2011 UNSPECIFIED ESSENTIAL HYPERTENSION [SNOMED-CT: 6709579 0] N/A N/A 03-08-2011 PAIN IN JOINT INVOLVING SHOULDER REGION [SNOMED-CT: 007841190] Celestine Huang, DO 12-26-2010 DIABETES MELLITUS WITHOUT MENTION OF COM PLICATION [SNOMED-CT: 235466640] Celestine Huang, DO 12-26-2010 HYPERPLASIA OF PROSTATE UNSPECIFIED WITH OUT URINAR [SNOMED-CT: 050324669] Celestine Reina Huang, DO 12-26-2010 UNSPECIFIED ESSENTIAL HYPERTENSION [SNOMED-CT: 2928584 0] N/A N/A 12-26-2010 Back pain [SNOMED-CT: 698164035] Dr. Colleen Huang, DO 12-14-2010 CLOSED FRACTURE OF LUMBAR VERTEBRA WITHO UT SPINAL [SNOMED-CT: 70803642] Celestine Huang, DO 12-14-2010 DIABETES MELLITUS WITHOUT MENTION OF COM PLICATION [SNOMED-CT: 451245438] Celestine Huang, DO 09-24-2010 CLOSED FRACTURE OF LUMBAR VERTEBRA WITHO UT SPINAL [SNOMED-CT: 20505634] Celestine Huang, DO 09-24-2010 UNSPECIFIED ESSENTIAL HYPERTENSION [SNOMED-CT: 7195778 0] N/A N/A 09-24-2010 DIABETES MELLITUS WITHOUT MENTION OF COM PLICATION [SNOMED-CT: 624289398] Celestine Huang, DO 08-29-2010 CLOSED FRACTURE OF LUMBAR VERTEBRA WITHO UT SPINAL [SNOMED-CT: 40721331] Celestine Huang, DO 08-29-2010 UNSPECIFIED ESSENTIAL HYPERTENSION [SNOMED-CT: 8346884 0] N/A N/A 08-29-2010 DIABETES MELLITUS WITHOUT MENTION OF COM PLICATION [SNOMED-CT: 683347844] Celestine Huang, DO 06-27-2010 CLOSED FRACTURE OF LUMBAR VERTEBRA WITHO UT SPINAL [SNOMED-CT: 64138412] Celestine Huang, DO 06-27-2010 UNSPECIFIED ESSENTIAL HYPERTENSION [SNOMED-CT: 4691475 0] N/A N/A 06-27-2010 CLOSED FRACTURE OF LUMBAR VERTEBRA WITHO UT SPINAL [SNOMED-CT: 03478635] Celestine Huang, DO 06-13-2010 DIABETES MELLITUS WITHOUT MENTION OF COM PLICATION [SNOMED-CT: 151422901] Celestine Huang, DO 03-23-2010 IMPOTENCE OF ORGANIC ORIGIN [SNOMED-CT: 224736549] N/A N/A 03-23-2010 UNSPECIFIED ESSENTIAL HYPERTENSION [SNOMED-CT: 1671495 0] N/A N/A 03-23-2010 UNSPECIFIED CATARACT [SNOMED-CT: 617337688] Celestine Huang, DO 01-26-2010 DIABETES MELLITUS WITHOUT MENTION OF COM PLICATION [SNOMED-CT: 167201763] Celestine Huang, DO 01-26-2010 UNSPECIFIED SLEEP APNEA [SNOMED-CT: 57637735] Celestine Huang, DO 01-26-2010 UNSPECIFIED ESSENTIAL HYPERTENSION [SNOMED-CT: 5944290 0] N/A N/A 01-26-2010 UNSPECIFIED DISORDER OF SKIN AND SUBCUTA NEOUS TISS [SNOMED-CT: 01352436] Celestine Huang, DO 01-26-2010 IMPOTENCE OF ORGANIC ORIGIN [SNOMED-CT: 528567893] N/A N/A 01-26-2010 DIABETES MELLITUS WITHOUT MENTION OF COM PLICATION [SNOMED-CT: 199555340] Celestine Huang, DO 12-20-2009 UNSPECIFIED ESSENTIAL HYPERTENSION [SNOMED-CT: 3185431 0] N/A N/A 12-20-2009 HYPERPLASIA OF PROSTATE UNSPECIFIED WITH OUT URINAR [SNOMED-CT: 904577798] Celestine Huang, DO 12-20-2009 UNSPECIFIED DISORDER OF SKIN AND SUBCUTA NEOUS TISS [SNOMED-CT: 65506823] Celestine Huang, DO 12-20-2009 IMPOTENCE OF ORGANIC ORIGIN [SNOMED-CT: 603577501] N/A N/A 12-20-2009 DIABETES MELLITUS WITHOUT MENTION OF COM PLICATION [SNOMED-CT: 234053680] N/A N/A 09-18-2009 UNSPECIFIED ESSENTIAL HYPERTENSION [SNOMED-CT: 4064153 0] N/A N/A 09-18-2009 IMPOTENCE OF ORGANIC ORIGIN [SNOMED-CT: 717505193] N/A N/A 09-18-2009 DIABETES MELLITUS WITHOUT MENTION OF COM PLICATION [SNOMED-CT: 711334441] N/A N/A 06-28-2009 DIABETES MELLITUS WITHOUT MENTION OF COM PLICATION [SNOMED-CT: 067602276] N/A N/A 06-16-2009 UNSPECIFIED ESSENTIAL HYPERTENSION [SNOMED-CT: 4763722 0] N/A N/A 06-16-2009 CONTACT DERMATITIS AND OTHER ECZEMA UNSP ECIFIED CA [SNOMED-CT: 877169258] N/A N/A 06-16-2009 ALLERGIES AND ADVERSE REACTIONS [...] hydrOXYzine hydrochloride 25 mg oral tablet, [RxNorm: 489148] hydrOXYzine one po bid prn and two po at hs 60 08/15/2020 Active atorvastatin 10 mg oral tablet, [RxNorm: 026872] atorvastatin one po hs daily 0 08/14/2020 Active metFORMIN 500 mg oral tablet, [RxNorm: 700557] metFORMIN one po bid 08/14/2020 Active HumaLOG 100 units/mL injectable solution, [RxNorm: 865 098] insulin lispro 6 units this am for sugar of 220....he h as a sliding scale 0 08/14/2020 Active Diflucan 150 mg oral tablet, [RxNorm: 392781] fluconazole one po now and repeat in 5 days 2 05/30/2020 Active Lotrisone 1%-0.05% topical cream, [RxNorm: 320065] clotrimazole-betamethasone dipropionate topic use as directed apply to genital area bid 30 05/30/2020 Active sertraline 100 mg oral tablet, [RxNorm: 160097] sertraline two po daily 180 019 Active lisinopril 10 mg oral tablet, [RxNorm: 917487] lisinopril one po daily 90 08/13/20 19 Active Linzess 145 mcg oral capsule, [RxNorm: 2822179] linaclotide one po daily prn constipation 90 08/13/2019 Active BD Pen Needle Mini U/F Unknown use as directed for lantus injection 200 2018 Active ibuprofen 800 mg oral tablet, [RxNorm: 211633] ibuprofen one po tid with food 90 06/23/2019 Active Lantus Solostar Pen 100 units/mL subcuta neous solution, [RxNorm: 395890] insulin glargine 14 units sq daily 15 12/18/2018 Active ProAir HFA 90 mcg/inh inhalation aerosol, [RxNorm: 745 752] albuterol two puffs qid prn wheeze 0 06/02/2017 Active Cortisporin-TC otic suspension, [RxNorm: 078439] colistin/neomycin/thonzonium/HC otic 4 gtts into left EAC bid 5 12/15/2015 Active aspirin 81 mg oral tablet, [RxNorm: 031841] aspirin one daily 1 11/17/2015 Active INSURANCE PROVIDERS Payer Name Policy Type P olicy ID Covered Republican ID Policy [employer] Health Insurance [id number] [facility] 20 [id number] THIAGO MENDOZA ASSESSMENTS # Type II diabetes mellitus poorly controlled (E11.65): # Nausea and vomiting (R11.2): now resolved PROBLEMS Problem Problem Status D ate Started Date Resolved Date Inactivated CLOSED FRACTURE OF LUMBAR VERTEBRA WITHO UT SPINAL [SNOMED-CT: 27041981] Active 06-13-2010 NA NA Type II diabetes mellitus poorly control led [SNOMED-CT: 875220572] Active 03-22-2020 NA NA Allergic contact dermatitis of male melissa isamar [SNOMED-CT: 848921712] Active 03-07-2017 NA NA Other genital problems [ICD10: R68.89] Active 03-07-2017 NA NA ROUTINE GENERAL MEDICAL EXAMINATION AT A HEALTH CARE FACILITY [SNOMED-CT: 679685203] Active 11-02-2012 NA NA Other specified vaccination [ICD10: Z23] Active 05-15-2016 NA NA DIABETES MELLITUS WITHOUT MENTION OF COM PLICATION [SNOMED-CT: 596837156] Active 12-20-2009 NA NA HYPERPLASIA OF PROSTATE UNSPECIFIED WITH OUT URINAR [SNOMED-CT: 691329308] Active 12-20-2009 NA NA UNSPECIFIED DISORDER OF SKIN AND SUBCUTA NEOUS TISS [SNOMED-CT: 40100535] Active 12-20-2009 NA NA Balanitis [SNOMED-CT: 83805832] Active 05-30-2020 NA NA Bronchospasm [SNOMED-CT: 1925665] Active 09-04-2016 NA NA Generalised itching [SNOMED-CT: 477828012] Active 08-15-2020 NA NA Other hyperlipidemia [ICD10: E78.49] Activ e 07-20-2018 NA NA Penile cellulitis/abscess/boil [SNOMED-CT: 111870968] Active 01-15-2017 NA NA Other constipation [ICD9: 564.09] Active 01-18-2015 NA NA UNSPECIFIED CATARACT [SNOMED-CT: 230236430] Active 01-26-2010 NA NA UNSPECIFIED SLEEP APNEA [SNOMED-CT: 71956256] Active 01-26-2010 NA NA Chronic kidney disease [SNOMED-CT: 098856535] Active 08-23-2020 NA NA Acute pancreatitis [SNOMED-CT: 567193223] Active 08-14-2020 NA NA Contusion of lower back and pelvis, init ial encounter [ICD10: S30.0XXA] Active 12-14-2018 NA NA Exogenous hyperlipidemia [SNOMED-CT: 262325638] Active 09-27-2015 NA NA Otitis externa [SNOMED-CT: 1633631] Active 12-15-2015 NA NA Impacted cerumen [SNOMED-CT: 16519462] Active 12-15-2015 NA NA INSOMNIA UNSPECIFIED [SNOMED-CT: 074812934] Active 06-09-2013 NA NA ANXIETY STATE UNSPECIFIED [SNOMED-CT: 664473765] Active 06-09-2013 NA NA NEED FOR PROPHYLACTIC VACCINATION AND IN OCULATION AGAINST INFLUENZA [SNOMED-CT: 646055299] Active 06-19-2011 NA NA Primary atypical interstitial pneumonia [SNOMED-CT: 35 539388] Active 09-04-2016 NA NA Viral gastroenteritis [SNOMED-CT: 156542912] Active 12-26-2017 NA NA Cat bite - wound [SNOMED-CT: 687271277] Active 12-26-2017 NA NA Cat bite [SNOMED-CT: 044153731] Active 12-26-2017 NA NA Cat bite [SNOMED-CT: 328416649] Active 12-26-2017 NA NA Emotional stress [SNOMED-CT: 512257984] Active 08-30-2020 NA NA Nausea and vomiting [SNOMED-CT: 25682635] Active 09-15-2020 NA NA BACKACHE UNSPECIFIED [SNOMED-CT: 909437884] Active 12-14-2010 NA NA PAIN IN JOINT INVOLVING SHOULDER REGION [SNOMED-CT: 466686081] Active 12-26-2010 NA NA DIABETES MELLITUS WITHOUT MENTION OF COM PLICATION [SNOMED-CT: 523225210] Active 05-19-2009 NA NA UNSPECIFIED ESSENTIAL HYPERTENSION [SNOMED-CT: 6225550 0] Active 05-19-2009 NA NA CONTACT DERMATITIS AND OTHER ECZEMA UNSP ECIFIED CA [SNOMED-CT: 719111063] Active 05-19-2009 NA NA Acute rhinosinusitis [SNOMED-CT: 670042379] Active 09-08-2019 NA NA Upper respiratory infection [SNOMED-CT: 47125936] Active 09-08-2019 NA NA LUMBAGO [SNOMED-CT: 506141071] Active 10-23-2011 NA NA SPRAIN OF UNSPECIFIED SITE OF SHOULDER A ND UPPER A [SNOMED-CT: 928762969] Active 06-28-2009 NA NA Back pain [SNOMED-CT: 071499508] Active 08-11-2015 NA NA Dysuria-frequency syndrome [SNOMED-CT: 3433245] Active 08-11-2015 NA NA Thyroiditis [SNOMED-CT: 22927805] Active 08-23-2020 NA NA Arthropathy of left shoulder [SNOMED-CT: 5386558051128 9103] Active 06-03-2018 NA NA Pain in left foot [SNOMED-CT: 828062443496686] Active 06-18-2019 NA NA DIABETES WITH RENAL MANIFESTATIONS TYPE II OR UNSPECIFIED TYPE NOT STATED UNCONTROLLED [SNOMED-CT: 208050177] Active 09-14-2014 NA NA CHRONIC KIDNEY DISEASE STAGE II (MILD) [SNOMED-CT: 431 679962] Active 09-14-2014 NA NA IMPOTENCE OF ORGANIC ORIGIN [SNOMED-CT: 954117636] Active 09-18-2009 NA NA PROCEDURES Procedure Date CPT Code Procedure 09/15/2020 12:51:28 [id number] Telephone evaluation and management service by a physician or other qualified health child care worker who may report evaluation and management services provided to an established patient, parent, or guardian not originating from a related E/M service provided within the previous 7 days nor leading to an E/M service or procedure within the next 24 hours or soonest available appointment; 5-10 minutes of medical discussion 08/30/2020 08:24:51 [id number] Telephone evaluation and management service by a physician or other qualified health child care worker who may report evaluation and management services provided to an established patient, parent, or guardian not originating from a related E/M service provided within the previous 7 days nor leading to an E/M service or procedure within the next 24 hours or soonest available appointment; 5-10 minutes of medical discussion 08/23/2020 09:37:34 [id number] Telephone evaluation and management service by a physician or other qualified health child care worker who may report evaluation and management services provided to an established patient, parent, or guardian not originating from a related E/M service provided within the previous 7 days nor leading to an E/M service or procedure within the next 24 hours or soonest available appointment; 5-10 minutes of medical discussion 08/15/2020 08:57:07 09195 Office or other outpatient visit for the [...] moderate severity. Physicians typically spend 15 minutes neyp-lg-pjba with the patient and/or family. 08/14/2020 09:42:50 56126 Transitional Care Management Services with the following required elements: Communication (direct contact, telephone, electronic) with the patient and/or caregiver within 2 business days of discharge Medical decision making of high complexity during the service period Tpiu-kg-bhbl visit, within 7 calendar days of discharge 08/14/2020 09:42:50 G8427 Eligible clinician attests to documenting in the medical record they obtained, updated, or reviewed the patient's current medications 05/30/2020 13:09:49 67108 Office or other outpatient visit for the [...] moderate severity. Physicians typically spend 15 minutes bakt-nv-qgbs with the patient and/or family. 03/22/2020 09:10:00 04880 Office or other outpatient visit for the [...] moderate severity. Physicians typically spend 15 minutes pthq-jl-rxdl with the patient and/or family. 03/15/2020 12:24:05 13916 Office or other outpatient visit for the evaluation and management of an established patient, that may not require the presence of a physician. Usually, the presenting problem(s) are minimal. Typically, 5 minutes are spent performing or supervising these services. 03/15/2020 12:24:05 71977 Hemoglobin; glycosylated (A1C) by device cleared by FDA for home use 03/15/2020 12:24:05 3046F Most recent hemoglobin A1c level greater than 9.0% (DM) 09/08/2019 08:19:29 62117 Office or other outpatient visit for the [...] high severity. Physicians typically spend 25 minutes eexb-ju-zvqr with the patient and/or family. 09/08/2019 08:19:29 93373 Hemoglobin; glycosylated (A1C) by device cleared by FDA for home use 09/08/2019 08:19:29 3045F Most recent hemoglobin A1c (HbA1c) level 7.0-9.0% (DM) 08/13/2019 13:55:58 G0439 ANNUAL WELLNESS VISIT, SUBSEQUENT 08/13/2019 13:55:58 28284 Hemoglobin; glycosylated (A1C) by device cleared by FDA for home use 08/13/2019 13:55:58 43893 Influenza virus vaccine, quadrivalent (ccIIV4), derived from cell cultures, subunit, preservative and antibiotic free, 0.5 mL dosage, for intramuscular use 08/13/2019 13:55:58 G0008 ADMINISTRATION OF FLU VACCINE (V04.81) 08/13/2019 13:55:58 2022F Dilated retinal eye exam with interpretation by an publisher assistant or elementary school social worker documented and reviewed (DM) 08/13/2019 13:55:58 G8427 Eligible clinician attests to documenting in the medical record they obtained, updated, or reviewed the patient's current medications 08/13/2019 13:55:58 3017F Colorectal cancer screening results documented and reviewed (PV) 08/13/2019 13:55:58 1036F Current tobacco non-user (CAD, CAP, COPD, PV) (DM) (IBD) 06/18/2019 09:23:34 97803 Office or other outpatient visit for the [...] high severity. Physicians typically spend 25 minutes ustv-sl-xmlp with the patient and/or family. 06/18/2019 09:23:34 55114 Hemoglobin; glycosylated (A1C) by device cleared by FDA for home use 06/18/2019 09:23:34 3045F Most recent hemoglobin A1c (HbA1c) level 7.0-9.0% (DM) 03/24/2019 08:14:04 31456 Office or other outpatient visit for the [...] high severity. Physicians typically spend 25 minutes daky-xc-kjsy with the patient and/or family. 03/24/2019 08:14:04 87186 Hemoglobin; glycosylated (A1C) by device cleared by FDA for home use 03/24/2019 08:14:04 3045F Most recent hemoglobin A1c (HbA1c) level 7.0-9.0% (DM) 03/24/2019 08:14:04 G8427 Eligible clinician attests to documenting in the medical record they obtained, updated, or reviewed the patient's current medications 03/23/2019 11:45:37 3017F Colorectal cancer screening results documented and reviewed (PV) 12/14/2018 08:01:40 02021 Office or other outpatient visit for the [...] high severity. Physicians typically spend 25 minutes krge-jx-xhiz with the patient and/or family. 12/14/2018 08:01:40 71392 Collection of venous blood by venipuncture 12/14/2018 08:01:40 26309 Hemoglobin; glycosylated (A1C) by device cleared by FDA for home use 12/14/2018 08:01:40 3046F Most recent hemoglobin A1c level greater than 9.0% (DM) 12/14/2018 08:01:40 G8427 Eligible clinician attests to documenting in the medical record they obtained, updated, or reviewed the patient's current medications 09/07/2018 08:17:34 91500 Office or other outpatient visit for the evaluation and management of an established patient, that may not require the presence of a physician. Usually, the presenting problem(s) are minimal. Typically, 5 minutes are spent performing or supervising these services. 09/07/2018 08:17:34 85855 Hemoglobin; glycosylated (A1C) by device cleared by FDA for home use 09/07/2018 08:17:34 3044F Most recent hemoglobin A1c (HbA1c) level less than 7.0% (DM) 07/20/2018 13:54:05 76558 Periodic comprehensive preventive medicine reevaluation and management of an individual including an age and gender appropriate history, examination, counseling/anticipatory guidance/risk factor reduction interventions, and the ordering of laboratory/diagnostic procedures, established patient; 65 years and older 07/20/2018 13:54:05 58098 Hemoglobin; glycosylated (A1C) by device cleared by FDA for home use 07/20/2018 13:54:05 G8427 Eligible clinician attests to documenting in the medical record they obtained, updated, or reviewed the patient's current medications 07/20/2018 13:54:05 1036F Current tobacco non-user (CAD, CAP, COPD, PV) (DM) (IBD) 07/20/2018 13:54:05 3044F Most recent hemoglobin A1c (HbA1c) level less than 7.0% (DM) 06/03/2018 08:23:02 92454 Office or other outpatient visit for the [...] high severity. Physicians typically spend 25 minutes kokf-uh-nsxv with the patient and/or family. 06/03/2018 08:23:02 93240 Hemoglobin; glycosylated (A1C) by device cleared by FDA for home use 06/03/2018 08:23:02 3045F Most recent hemoglobin A1c (HbA1c) level 7.0-9.0% (DM) 03/27/2018 08:56:44 70153 Office or other outpatient visit for the [...] moderate severity. Physicians typically spend 15 minutes bwwz-ph-llux with the patient and/or family. 03/27/2018 08:56:44 3045F Most recent hemoglobin A1c (HbA1c) level 7.0-9.0% (DM) 03/27/2018 08:56:44 24001 Hemoglobin; glycosylated (A1C) by device cleared by FDA for home use 03/27/2018 08:56:44 G8427 Eligible clinician attests to documenting in the medical record they obtained, updated, or reviewed the patient's current medications 12/26/2017 08:55:27 62836 Office or other outpatient visit for the [...] high severity. Physicians typically spend 25 minutes ltrp-nc-kboq with the patient and/or family. 12/26/2017 08:55:27 3045F Most recent hemoglobin A1c (HbA1c) level 7.0-9.0% (DM) 12/26/2017 08:55:27 68285 Hemoglobin; glycosylated (A1C) by device cleared by FDA for home use 12/26/2017 08:55:27 1036F Current tobacco non-user (CAD, CAP, COPD, PV) (DM) (IBD) 12/26/2017 08:55:27 G8427 Eligible clinician attests to documenting in the medical record they obtained, updated, or reviewed the patient's current medications 12/26/2017 08:55:27 2F Dilated retinal eye exam with interpretation by an publisher assistant or elementary school social worker documented and reviewed (DM) 09/24/2017 08:27:29 71075 Office or other outpatient visit for the [...] high severity. Physicians typically spend 25 minutes iacm-lh-wbyu with the patient and/or family. 09/24/2017 08:27:29 44132 Hemoglobin; glycosylated (A1C) by device cleared by FDA for home use 09/24/2017 08:27:29 3045F Most recent hemoglobin A1c (HbA1c) level 7.0-9.0% (DM) 09/24/2017 08:27:29 1036F Current tobacco non-user (CAD, CAP, COPD, PV) (DM) (IBD) 06/02/2017 08:22:37 30918 Periodic comprehensive preventive medicine reevaluation and management [...] CAP, COPD, PV) (DM) (IBD) 06/02/2017 08:22:37 07712 Hemoglobin; glycosylated (A1C) by device cleared by FDA for home use 03/07/2017 09:18:02 90923 Office or other outpatient visit for the [...] high severity. Physicians typically spend 25 minutes iaaw-dc-frgu with the patient and/or family. 03/07/2017 09:18:02 08479 Hemoglobin; glycosylated (A1C) by device cleared by FDA for home use 01/15/2017 08:13:41 90692 Office or other outpatient visit for the [...] high severity. Physicians typically spend 25 minutes vsve-ig-qsdm with the patient and/or family. 11/11/2016 09:37:13 69232 Hemoglobin; glycosylated (A1C) by device cleared by FDA for home use 11/06/2016 08:26:32 44501 Office or other outpatient visit for the [...] moderate severity. Physicians typically spend 15 minutes ngmi-th-gfdd with the patient and/or family. 09/04/2016 09:23:52 81776 Office or other outpatient visit for the [...] moderate severity. Physicians typically spend 15 minutes inae-iw-vlev with the patient and/or family. 07/10/2016 08:21:01 19478 Office or other outpatient visit for the [...] high severity. Physicians typically spend 25 minutes zngr-pl-lcyu with the patient and/or family. 07/10/2016 08:21:01 47473 Hemoglobin; glycosylated (A1C) by device cleared by FDA for home use 05/15/2016 08:27:09 32508 Office or other outpatient visit for the [...] moderate severity. Physicians typically spend 15 minutes kwju-qs-nxra with the patient and/or family. 05/15/2016 08:27:09 86438 Hemoglobin; glycosylated (A1C) by device cleared by FDA for home use 05/15/2016 08:27:09 G0008 ADMINISTRATION OF FLU VACCINE (V04.81) 05/15/2016 08:27:09 Q2037 FLUVRIN 03/18/2016 08:09:18 65450 Office or other outpatient visit for the [...] high severity. Physicians typically spend 25 minutes hxlk-sb-cyfp with the patient and/or family. 01/22/2016 08:23:52 88596 Collection of venous blood by venipuncture 01/22/2016 08:23:52 76629 Office or other outpatient visit for the [...] high severity. Physicians typically spend 25 minutes rfbt-pi-ghao with the patient and/or family. 12/15/2015 12:17:35 24682 Removal impacted cerumen (separate procedure), 1 or both ears 12/15/2015 12:17:35 85668 Office or other outpatient visit for the [...] moderate severity. Physicians typically spend 15 minutes qjmf-ez-pxvf with the patient and/or family. 11/17/2015 08:15:21 28532 Collection of venous blood by venipuncture 11/17/2015 08:15:21 30864 Office or other outpatient visit for the [...] high severity. Physicians typically spend 40 minutes zxeg-xk-qssm with the patient and/or family. 11/17/2015 08:15:21 46742 Hemoglobin; glycosylated (A1C) by device cleared by FDA for home use 09/27/2015 08:29:20 13142 Periodic comprehensive preventive medicine reevaluation and management of an individual including an age and gender appropriate history, examination, counseling/anticipatory guidance/risk factor reduction interventions, and the ordering of laboratory/diagnostic procedures, established patient; 40-64 years 09/27/2015 08:29:20 73973 Collection of venous blood by venipuncture 09/27/2015 08:29:20 39019 Hemoglobin; glycosylated (A1C) by device cleared by FDA for home use 08/11/2015 08:14:29 81837 Office or other outpatient visit for the [...] moderate severity. Physicians typically spend 15 minutes ryhk-xk-oaqc with the patient and/or family. 06/19/2015 08:27:11 57103 Office or other outpatient visit for the [...] moderate severity. Physicians typically spend 15 minutes upci-zm-ukyv with the patient and/or family. 04/26/2015 08:20:21 32274 Office or other outpatient visit for the [...] moderate severity. Physicians typically spend 15 minutes cnqu-jv-zndl with the patient and/or family. 04/26/2015 08:20:21 89801 Hemoglobin; glycosylated (A1C) by device cleared by FDA for home use 01/18/2015 08:11:52 07873 Office or other outpatient visit for the [...] moderate severity. Physicians typically spend 15 minutes gljv-gc-hjil with the patient and/or family. 11/30/2014 08:15:54 42012 Office or other outpatient visit for the [...] high severity. Physicians typically spend 25 minutes gjgv-vo-vfcg with the patient and/or family. 11/30/2014 08:15:54 66390 Collection of venous blood by venipuncture 11/30/2014 08:15:54 28305 Hemoglobin; glycosylated (A1C) by device cleared by FDA for home use 10/19/2014 00:00:00 92381 Collection of venous blood by venipuncture 10/19/2014 00:00:00 00736 Office or other outpatient visit for the [...] moderate severity. Physicians typically spend 15 minutes airl-zl-ckze with the patient and/or family. 09/16/2014 00:00:00 67191 Office or other outpatient visit for the [...] moderate severity. Physicians typically spend 15 minutes ahxe-ht-pguv with the patient and/or family. 09/14/2014 00:00:00 15941 Office or other outpatient visit for the [...] moderate severity. Physicians typically spend 15 minutes hybb-sn-trja with the patient and/or family. 08/22/2014 15:40:11 89002 INFLUENZA VACCINATION 08/22/2014 15:40:11 19451 Periodic comprehensive preventive medicine reevaluation and management of an individual including an age and gender appropriate history, examination, counseling/anticipatory guidance/risk factor reduction interventions, and the ordering of laboratory/diagnostic procedures, established patient; 40-64 years 08/22/2014 15:40:11 14973 Collection of venous blood by venipuncture 08/22/2014 15:40:11 Q2037 FLUVRIN 05/09/2014 00:00:00 02680 Office or other outpatient visit for the [...] moderate severity. Physicians typically spend 15 minutes pxnh-yo-gbyd with the patient and/or family. 05/09/2014 00:00:00 40558 Hemoglobin; glycosylated (A1C) by device cleared by FDA for home use 03/16/2014 00:00:00 70284 Office or other outpatient visit for the [...] high severity. Physicians typically spend 25 minutes ahwg-gs-vrtb with the patient and/or family. 03/16/2014 00:00:00 44858 Hemoglobin; glycosylated (A1C) by device cleared by FDA for home use 11/05/2013 00:00:00 66554 Office or other outpatient visit for the [...] moderate severity. Physicians typically spend 15 minutes efgz-ew-swjk with the patient and/or family. 11/05/2013 00:00:00 58018 Collection of venous blood by venipuncture 11/05/2013 00:00:00 12329 Hemoglobin; glycosylated (A1C) by device cleared by FDA for home use 06/11/2013 00:00:00 34309 Periodic comprehensive preventive medicine reevaluation and management of an individual including an age and gender appropriate history, examination, counseling/anticipatory guidance/risk factor reduction interventions, and the ordering of laboratory/diagnostic procedures, established patient; 40-64 years 06/11/2013 00:00:00 76989 Hemoglobin; glycosylated (A1C) by device cleared by FDA for home use 06/09/2013 08:31:54 87223 Office or other outpatient visit for the [...] moderate severity. Physicians typically spend 15 minutes pfdf-is-gfli with the patient and/or family. 02/17/2013 08:29:32 21088 Office or other outpatient visit for the [...] moderate severity. Physicians typically spend 15 minutes mwzd-tg-xmkn with the patient and/or family. 02/17/2013 08:29:32 82167 Collection of venous blood by venipuncture 02/17/2013 08:29:32 83076 Hemoglobin; glycosylated (A1C) by device cleared by FDA for home use 11/02/2012 08:13:33 43522 Periodic comprehensive preventive medicine reevaluation and management of an individual including an age and gender appropriate history, examination, counseling/anticipatory guidance/risk factor reduction interventions, and the ordering of laboratory/diagnostic procedures, established patient; 40-64 years 11/02/2012 08:13:33 18223 Hemoglobin; glycosylated (A1C) by device cleared by FDA for home use 08/28/2012 08:54:25 45130 Office or other outpatient visit for the [...] moderate severity. Physicians typically spend 15 minutes uwpt-bu-ryqy with the patient and/or family. 08/05/2012 11:43:02 07113 Office or other outpatient visit for the [...] moderate severity. Physicians typically spend 15 minutes bsdn-vf-etbm with the patient and/or family. 08/05/2012 11:43:02 05437 Hemoglobin; glycosylated (A1C) by device cleared by FDA for home use 02/26/2012 08:27:00 68672 Collection of venous blood by venipuncture 02/26/2012 08:27:00 69938 Office or other outpatient visit for the [...] high severity. Physicians typically spend 25 minutes dyeg-yf-uvyk with the patient and/or family. 10/23/2011 08:31:03 81732 Office or other outpatient visit for the [...] moderate severity. Physicians typically spend 15 minutes hlxz-zr-cvxi with the patient and/or family. 10/23/2011 08:31:03 25721 Hemoglobin; glycosylated (A1C) by device cleared by FDA for home use 08/21/2011 08:26:48 27360 Collection of venous blood by venipuncture 08/21/2011 08:26:48 29136 Office or other outpatient visit for the [...] moderate severity. Physicians typically spend 15 minutes kyvu-cw-epke with the patient and/or family. 06/19/2011 08:43:09 69493 INFLUENZA VACCINATION 06/19/2011 08:43:09 81354 Collection of venous blood by venipuncture 06/19/2011 08:43:09 31055 Immunization administration (includes percutaneous, intradermal, subcutaneous, or intramuscular injections); one vaccine (single or combination vaccine/toxoid) 06/19/2011 08:43:09 34684 Office or other outpatient visit for the [...] high severity. Physicians typically spend 25 minutes fhvq-cs-phyw with the patient and/or family. 03/08/2011 08:41:01 87010 Office or other outpatient visit for the [...] high severity. Physicians typically spend 25 minutes micx-xb-doht with the patient and/or family. 12/26/2010 08:18:16 95002 Collection of venous blood by venipuncture 12/26/2010 08:18:16 15335 Office or other outpatient visit for the [...] moderate severity. Physicians typically spend 15 minutes qerq-mt-bgyb with the patient and/or family. 12/14/2010 08:19:33 69352 Office or other outpatient visit for the [...] high severity. Physicians typically spend 25 minutes lyye-qw-ctto with the patient and/or family. 09/24/2010 08:30:35 28581 Office or other outpatient visit for the [...] high severity. Physicians typically spend 25 minutes ysqh-yq-sbyj with the patient and/or family. 08/29/2010 00:00:00 96653 Office or other outpatient visit for the [...] high severity. Physicians typically spend 25 minutes vcyw-tt-hfzq with the patient and/or family. 06/27/2010 00:00:00 73330 Office or other outpatient visit for the [...] high severity. Physicians typically spend 25 minutes hgec-xx-jutj with the patient and/or family. 06/27/2010 00:00:00 G8553 AT LEASTONE PRESCRIPTION CREATED DURING THE ENCOUNTER WAS GENERATED AND TRANSMITTED ELECTRONICALLY USING A QUALIFIED eEye SYSTEM 06/27/2010 00:00:00 40238 Collection of venous blood by venipuncture 06/13/2010 00:00:00 21054 Office or other outpatient visit for the [...] moderate severity. Physicians typically spend 15 minutes lqry-ie-cgzk with the patient and/or family. 03/23/2010 00:00:00 33063 Office or other outpatient visit for the [...] high severity. Physicians typically spend 25 minutes gnsk-sj-ynzn with the patient and/or family. 03/23/2010 00:00:00 81214 Collection of venous blood by venipuncture 01/26/2010 00:00:00 05430 Office or other outpatient visit for the [...] high severity. Physicians typically spend 25 minutes nmqn-jb-itqt with the patient and/or family. 12/20/2009 00:00:00 26156 Collection of venous blood by venipuncture 12/20/2009 00:00:00 17543 Office or other outpatient visit for the [...] moderate severity. Physicians typically spend 15 minutes ltoz-vz-faqm with the patient and/or family. 09/18/2009 00:00:00 39995 Office or other outpatient visit for the [...] high severity. Physicians typically spend 25 minutes zpfe-ip-xopt with the patient and/or family. 09/18/2009 00:00:00 82346 Collection of venous blood by venipuncture 06/28/2009 00:00:00 67723 Office or other outpatient visit for the [...] high severity. Physicians typically spend 25 minutes dvqe-vx-hwuk with the patient and/or family. 06/16/2009 00:00:00 85236 Office or other outpatient visit for the [...] high severity. Physicians typically spend 25 minutes jnoc-gg-asag with the patient and/or family. 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: : 1950 Requested By: Jung Sofia Order Number: [id number] Reading MD: Shira Otero Measurements Intervals [place] Rate: 77 P: 68 NE: 152 QRS: -30 QRSD: 100 T: 44 QT: 384 QTc: 437 Interpretive Statements SINUS RHYTHM BORDERLINE LEFT AXIS DEVIATION LOW VOLTAGE LIMB NSTTW ABNORMALITY NO PRIOR FOR COMPARISON Electronically Signed On 04-21-2016 20:05:36 EDT by Shira Otero DD: PEDRO 04/20/2016 1312 DT: [place] 04/21/20162004 DS: PEDRO 04/21/20162004 The Following Link and Pin can be used to access images associated with this report: [email or web address] N/A N/A 04/20/2016 13:07:00 HEMOGLOBIN A1c [...] Observed Smoking Status Former smoker, [SNOME D-CT: [id number]], 75.00 pk yrs/20.00 yrs quit 11/30/2014 - 11/30/2014 TREATMENT PLAN Encounter Date [facility] 09/15/2020 12:51:28 This visit was spent in [...] # 30, RF: 0. (Transmitted by Colleen ReinaDO joelle) Date Prescribed: 09/08/2019 PRESCRIBE: metFORMIN 500 mg [...] Appointment scheduled for a telehealth visit to [facility] on 03/22/2020. 03/15/2020 12:24:05 HgA1c is 10.0% Appointment scheduled for a telehealth visit to [facility] on 03/22/2020. 10/25/2019 08:14:07 Plan printed [...] # 18, RF: 3. (Transmitted by Colleen Reina, DO) PRESCRIBE: sertraline 100 mg oral tablet, [...] the Left Deltoid (Mfg: SEQIRUS lot no. [id number], expires 02/29/2020) ORDERED/ADVISED: Order Date 08-13-2019 - [...] the Left Deltoid (Mfg: SEQIRUS lot no. [id number], expires 02/29/2020) ORDERED/ADVISED: Order Date 08-13-2019 - [...] the Left Deltoid (Mfg: SEQIRUS lot no. [id number], expires 02/29/2020) ORDERED/ADVISED: Order Date 08-13-2019 - [...] RF: 1. (Transmitted by Colleen Huang, ) Barber christopher PROVIDED HM: CDSMP Given: "the obesity code", " the diabetes code", and "quide to fasting" by Flakito Estes MD You can download a [employer] melba to your computer and get these books on [employer]. Watch the movie "the magic pill" documentary on [employer] and watch it Counseling and coordination of [...] your computer and get these books on [employer]. Watch the movie "the magic pill" documentary on [employer] and watch it 06/18/2019 09:23:34 Plan printed and provided to patient: PRESCRIBE: ibuprofen 800 mg oral tablet, one po tid with food, # 90, RF: 1. (Transmitted by Colleen Huang DO) Barber christopher PROVIDED HM: CDSMP Given: "the obesity code", " the diabetes code", and "quide to fasting" by Flakito Estes MD You can download a [employer] melba to your computer and get these books on [employer]. Watch the movie "the magic pill" documentary on [employer] and watch it 03/24/2019 08:14:04 Plan printed and provided to patient: PROVIDED HM: CDSMP Given: "the obesity code", " the diabetes code", and "quide to fasting" by Flakito Estes MD You can download a [employer] melba to your [employer] for free. then you can go to [employer] and download books at a reduced jean. [...] Flakito Estes MD You can download a [employer] melba to your iphone for free. then you can go to [employer] and download books at a reduced jean. [...] Flakito Estes MD You can download a [employer] melba to your iphone for free. then you can go to [employer] and download books at a reduced jean. 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 (Transmitted by Colleen ElwellDO joelle) PRESCRIBE: sertraline 100 mg oral tablet, one po daily, # 90, RF: 3. (Transmitted by Colleen ElwellDO joelle) PRESCRIBE: metFORMIN 500 mg oral tablet, one po bid pc, # 180, RF: 3. (Trans mitted by Colleen Huang DO) PRESCRIBE: lisinopril 10 mg oral tablet, one po daily, # 90, RF: 3. (Transmitted by Colleen ElwellDO joelle) PRESCRIBE: Linzess 145 mcg oral capsule, one po daily prn constipation, # 90, RF: 3. (Transmitted by Colleen ElwellDO joelle) PRESCRIBE: atorvastatin 10 mg oral tablet, one po daily, # 90, RF: 3. (Transmitted by ColleenDragonfly ListDO joelle) CHANGED Current Meds: Trulicity Pen 1.5 mg/0.5 mL subcutaneous solution REMOVED from Current Meds: Lantus Solostar Pen 100 units/mL subcutaneous solution, 14 units sq daily, # 5, RF: 0. (Transmitted by Colleen ReinaDO joelle) Date Prescribed: 06/26/2018 REMOVED from Current [...] # 12, RF: 3. (Transmitted by Colleen ElwellDO joelle) PRESCRIBE: sertraline 100 mg oral tablet, one po daily, # 90, RF: 3. (Transmitted by Colleen ReinaDO joelle) PRESCRIBE: metFORMIN 500 mg oral tablet, one po bid pc, # 180, RF: 3. (Trans mitted by Colleen Huang DO) PRESCRIBE: lisinopril 10 mg oral tablet, one po daily, # 90, RF: 3. (Transmitted by ColleenDragonfly ListDO joelle) PRESCRIBE: Linzess 145 mcg oral capsule, one po daily prn constipation, # 90, RF: 3. (Transmitted by Colleen Huang DO) PRESCRIBE: atorvastatin 10 mg oral tablet, one po daily, # 90, RF: 3. (Transmitted by WecashDO joelle) CHANGED Current Meds: Trulicity Pen 1.5 mg/0.5 mL subcutaneous solution REMOVED from Current Meds: Lantus Solostar Pen 100 units/mL subcutaneous solution, 14 units sq daily, # 5, RF: 0. (Transmitted by WecashDO joelle) Date Prescribed: 06/26/2018 REMOVED from Current [...] # 14, RF: 0. (Transmitted by Colleen ElwellDO joelle) Date Prescribed: 12/26/2017 Motion is lotion [...] diabetes related complication....14% decrease in risk of MA.....12%decrease risk of stroke...and a 37% decrease risk [...] we have to work with? Time/Travel/Tastes/Treatments?? Arrange: Crumb Packer? www.eatright.org Director Of Revenue Cycle Management?www.diabeteseducator.org Pharmacy/Pharmacy benefits Literature? Recipes Diabetes [place] www.diabetes.org www.ncbde.org www.diabeeseducator.org/deap www.ndep.nih.gov www.diabetes.org www.learningaboutdiabetes.org www.diabeticconnect.com www.BeijingyichengnoEdi.io.Surplex www.diabeteswhattClixtrnow.com www.peersforprogress.org [place] Read about tanner [...] diabetes related complication....14% decrease in risk of MA.....12%decrease risk of stroke...and a 37% decrease risk [...] we have to work with? Time/Travel/Tastes/Treatments?? Arrange: Crumb Packer? www.eatright.org Director Of Revenue Cycle Management?www.diabeteseducator.org Pharmacy/Pharmacy benefits Literature? Recipes Diabetes [place] www.diabetes.org www.ncbde.org www.diabeeseducator.org/deap www.ndep.nih.gov www.diabetes.org www.learningaboutdiabetes.org www.diabeticconnect.com www.whatClixtrnow.com www.diabeteswhattoknow.com www.peersforprogress.org [place] Read about [...] pc, # 180, RF: 3. (Transmitted by ColleenDragonfly Listard, DO) PRESCRIBE: lisinopril 10 mg oral tablet, one po daily, # 90, RF: 3. (Transmitted by ColleenDragonfly Listard, DO) PRESCRIBE: Linzess 145 mcg oral capsule, one po daily prn constipation, # 90, RF: 3. (Transmitted by Wecashard, DO) PRESCRIBE: Lantus Solostar Pen 100 units/mL subcutaneous solution, 25 units hs daily, # 5, RF: 5. (Transmitted by Wecashard, DO) PRESCRIBE: glipiZIDE 10 mg oral tablet, one po daily, # 90, RF: 3. (Transmitted by Wecashard, DO) PRESCRIBE: BD Pen Needle Mini U/F, use as directed for lantus injection, # 100, RF: 3. (Transmitted by Wecashard, DO) PRESCRIBE: atorvastatin 10 mg oral tablet, one po daily, # 90, RF: 3. (Transmitted by Wecashard, DO) He is walking at least a [...] diabetes related complication....14% decrease in risk of MA.....12%decrease risk of stroke...and a 37% decrease risk [...] we have to work with? Time/Travel/Tastes/Treatments?? Arrange: Crumb Packer? www.eatright.org Director Of Revenue Cycle Management?www.diabeteseducator.org Pharmacy/Pharmacy benefits Literature? Recipes Diabetes [place] www.diabetes.org www.ncbde.org www.diabeeseducator.org/deap www.ndep.nih.gov www.diabetes.org www.learningaboutdiabetes.org www.diabeticconnect.com www.BeijingyichengnoEdi.io.com www.diabeteswhattoknow.com www.peersforprogress.org [place] Read about [...] diabetes related complication....14% decrease in risk of MA.....12%decrease risk of stroke...and a 37% decrease risk [...] we have to work with? Time/Travel/Tastes/Treatments?? Arrange: Crumb Packer? www.eatright.org Director Of Revenue Cycle Management?www.diabeteseducator.org Pharmacy/Pharmacy benefits Literature? Recipes Diabetes [place] www.diabetes.org www.ncbde.org www.diabeeseducator.org/deap www.ndep.nih.gov www.diabetes.org www.learningaboutdiabetes.org www.diabeticconnect.com www.BeijingyichengnoEdi.io.Surplex www.diabeteswhattClixtrnow.com www.peersforprogress.org [place] PROVIDED HM: Obesity: [...] diabetes related complication....14% decrease in risk of MA.....12%decrease risk of stroke...and a 37% decrease risk [...] we have to work with? Time/Travel/Tastes/Treatments?? Arrange: Crumb Packer? www.eatright.org Director Of Revenue Cycle Management?www.diabeteseducator.org Pharmacy/Pharmacy benefits Literature? Recipes Diabetes [place] www.diabetes.org www.ncbde.org www.diabeeseducator.org/deap www.ndep.nih.gov www.diabetes.org www.learningaboutdiabetes.org www.diabeticconnect.com www.whatClixtrnow.com www.diabeteswhattoknow.com www.peersforprogress.org [place] PROVIDED HM: [...] diabetes related complication....14% decrease in risk of MA.....12%decrease risk of stroke...and a 37% decrease risk [...] we have to work with? Time/Travel/Tastes/Treatments?? Arrange: Crumb Packer? www.eatright.org Director Of Revenue Cycle Management?www.diabeteseducator.org Pharmacy/Pharmacy benefits Literature? Recipes Diabetes [place] www.diabetes.org www.ncbde.org www.diabeeseducator.org/deap www.ndep.nih.gov www.diabetes.org www.learningaboutdiabetes.org www.diabeticconnect.com www.Beijingyichengnow.com www.diabeteswhattoknow.Surplex www.peersforprogress.org [place] PROVIDED HM: Obesity: [...] 60, RF: 0. PROVIDED HM: CDSMP Given: [employer] "Addictocarb Carb" Consider the Mediterranean Diet. Eliminate [...] 60, RF: 0. PROVIDED HM: CDSMP Given: [employer] "Addictocarb Carb" Consider the Mediterranean Diet. Eliminate [...] support/Move your body/Think positive/Be good to yourself/ [place] Assn. [employer] Diabetic Educators....7 behaviors for diabetes self management. 09/04/2016 09:23:52 Plan printed and provided to patient: PRESCRIBE: oxyCODONE-acetaminophen 5 mg-325 mg oral tablet, one po bid prn pain, # 60, RF: 0. PRESCRIBE: ProAir HFA 90 mcg/inh inhalation aerosol, two puffs qid prn wheeze, # 1, RF: 1. (Transmitted by [employer], [employer]) PRESCRIBE: azithromycin 250 mg oral tablet, two po today and one po daily x 4, # 6, RF: 0. (Transmitted by [employer], [employer]) ORDERED/ADVISED: - CXR - PA & Lat [...] support/Move your body/Think positive/Be good to yourself/ [place] [employer] Diabetic Educators....7 behaviors for diabetes self management. 09/04/2016 09:23:52 Plan printed and provided to patient: PRESCRIBE: oxyCODONE-acetaminophen 5 mg-325 mg oral tablet, one po bid prn pain, # 60, RF: 0. PRESCRIBE: ProAir HFA 90 mcg/inh inhalation aerosol, two puffs qid prn wheeze, # 1, RF: 1. (Transmitted by Wecash[employer], [employer]) PRESCRIBE: azithromycin 250 mg oral tablet, two po today and one po daily x 4, # 6, RF: 0. (Transmitted by Wecashard, [employer]) ORDERED/ADVISED: - CXR - PA & Lat [...] support/Move your body/Think positive/Be good to yourself/ [place] Assn[employer] of Diabetic Educators....7 behaviors for diabetes [...] the Left Deltoid (Mfg: OTHER lot no. [id number], expires 01/08/2017) PROVIDED HM: Screening for Depression in Adults Given: Not present Percoset script to [facility] 05/15/2016 08:27:09 Plan printed and provided to patient: PROVIDED VACCINATION: 1 dose of Fluvirin, 0.5 mL IM in the Left Deltoid (Mfg: OTHER lot no. [id number], expires 01/08/2017) PROVIDED HM: Screening for Depression in Adults Given: Not present Percoset script to [facility] 05/15/2016 08:27:09 Plan printed and provided to patient: PROVIDED VACCINATION: 1 dose of Fluvirin, 0.5 mL IM in the Left Deltoid (Mfg: OTHER lot no. [id number], exp01/08/2017) PROVIDED HM: Screening for Depression in Adults Given: Not present Percoset script to [facility] 03/18/2016 08:09:18 Plan printed and provided [...] daily, # 5, RF: 3. (Transmitted by Wecashard, [employer]) PRESCRIBE: BD Pen Needle Mini U/F, use as directed for lantus injection, # 100, RF: 3. (Transmitted by ColleenDragonfly Listard, DO) PRESCRIBE: Linzess 145 mcg oral capsule, one po daily prn constipation, # 90, RF: 3. (Transmitted by Wecashard, DO) PRESCRIBE: Zoloft 100 mg oral tablet, one po daily, # 90, RF: 3. (Transmitted by Wecashard, DO) PRESCRIBE: metFORMIN 500 mg oral tablet, one po bid pc, # 180, RF: 3. (Transmitted by Wecashard, DO) PRESCRIBE: lisinopril 10 mg oral tablet, one po daily, # 90, RF: 3. (Transmitted by Wecashard, [employer]) PRESCRIBE: glipiZIDE 10 mg oral tablet, one po daily, # 90, RF: 3. (Transmitted by Wecashard, [employer]) PRESCRIBE: cholecalciferol 50,000 intl units oral capsule, one po weekly, # 12, RF: 3. (Transmitted by Wecashard, DO) PRESCRIBE: atorvastatin 10 mg oral tablet, one po daily, # 90, RF: 3. (Transmitted by [employer], [employer]) ORDERED/ADVISED: - CBC with diff (automated) ICD [...] daily, # 1, RF: 5. (Transmitted by ColleenDragonfly Listard, DO) PRESCRIBE: Cortisporin-TC otic suspension, 4 gtts into left EAC bid, # 5, RF: 0. (Transmitted by ColleenDragonfly Listard, DO) Increase lantus insulin to 24 units [...] 1. (Transmitted by Colleen Huang, ) PRESCRIBE: Novofine 31, use for lantus injection [...] the Left Deltoid (Mfg: NOVARTIS lot no. [id number], expires 01/29/2015) ORDERED/ADVISED: - CBC with diff [...] 13:52:33 Instructions printed and provided to patient: MEDICAL DIR site consulted prior to scheduled drug prescription. [...] bid prn pain, # 60, RF: NONE. MEDICAL DIR site consulted prior to scheduled drug prescription. [...] Ds) ICD9 Codes (250.00, 600.9, 272.4, 401.9) MEDICAL DIR site consulted prior to scheduled drug prescription. [...] RF: 3. (Transmitted by Colleen Huang, DO) Instructions printed and provided to patient: [...] by Colleen Huang DO) All sent to [facility] today and 06/19/11. DISCONTINUE: gabapentin [...] ml IM in the L DELTOID (Mfg: [employer] lot no. [id number], expires 02/28/2012) ORDERED/ADVISED: - Urine microalbumin (AODM) [...] PRESCRIBE: Gabapentin 100mg, one or two po [id number] prn back pain, # 180, RF: 5. [...]
--- OUTSIDE RECORDS SUMMARY | 2020-10-17 11:14 | CCD | Continuity of Care Document ---
Author Author [facility] Address [address] [place] [address] Phone Care Team Providers Care Green House Manager Name Role Phone Chantal BOWER PCP Allergies, Adverse Reactions, Alerts Allergen Type Severity Reaction Last Updated Verified Status MDX - Nka - No Known Allergies Allergy Unknown March No Active Medications No medication information available. Problems No problem information available. Procedures Procedure Date Performed Status SHOULDER COMPLETE September 25, 2020 completed Relevant Diagnostic Tests and/or Laboratory Data Laboratory Results Test Date/Time Result Interpretation Reference Range Result Co mment Performing Site White Blood Count August 30, 2020 2:57am 5.4 4.0-1 0.0 [facility] Main Lab, [address] [place] [address] Red Blood Count August 30, 2020 2:57am 4.47 4.50-6. 00 [facility], [address] [facility] [address] Hemoglobin August 30, 2020 2:57am 13.5 14.0-18.0 [facility], 4 [facility] [address] Hematocrit August 30, 2020 2:57am 40.1 42.0-54.0 [facility], [address] [place] [address] Mean Corpuscular Volume August 30, 2020 2:57am 89.7 80-96 [facility] Main Lab, 4 [facility] [address] Mean Corpuscular Hemoglobin August 30, 2020 2:57am 30.2 27.0-31.0 [facility], 4 [facility] [address] Mean Corpuscular Hgb Concent Diff August 30, 2020 2:57am 33.7 32.0-36.0 [facility] Main [facility], 4 [facility] [address] Red Cell Distribution Width August 30, 2020 2:57am 12.3 10.0-14.5 [facility] Main Lab, [address] [place] [address] Platelet Count August 30, 2020 2:57am 323 172-450 [facility] Main Lab, [address] [place] [address] Mean Platelet Volume August 30, 2020 2:57am 8.9 9. 0-13.0 [facility], 4 [facility] [address] Granulocytes % (Auto) August 30, 2020 2:57am 63.8 5 0-80.0 [facility] Main [facility], [address] [place] [address] Immature Granulocytes % August 30, 2020 2:57am 0.2 0.0-0.2 [facility], 4 [facility] [address] Lymphocytes % August 30, 2020 2:57am 23.1 25.0-50.0 [facility], [address] [place] [address] Monocytes % August 30, 2020 2:57am 6.9 2.0-10.0 [facility], 4 [facility] [address] Eosinophils % August 30, 2020 2:57am 5.6 0-5.0 [facility], 4 [facility] [address] Basophils % August 30, 2020 2:57am 0.4 0.0-2.0 [facility], 4 [facility] [address] Granulocytes # August 30, 2020 2:57am 3.4 2.0-8.00 [facility], [address] [facility] [address] Immature Granulocytes # August 30, 2020 2:57am 0.0 0.0-0.2 [facility] Main [facility], [address] [place] [address] Lymphocytes # August 30, 2020 2:57am 1.2 1.0-5.0 [facility], 4 [facility] [address] Monocytes # August 30, 2020 2:57am 0.4 0.10-1.20 [facility], 4 [facility] [address] Eosinophils # August 30, 2020 2:57am 0.3 0.0-0.5 [facility], 4 [facility] [address] Basophils # August 30, 2020 2:57am 0.0 0.0-0.2 [facility], 4 [facility] [address] Glucose Level August 30, 2020 2:57am 157 74-106 [facility] Lab, 4 [facility] [address] Blood Urea Nitrogen August 30, 2020 2:57am 29 7-1 8 [facility], 4 [facility] [address] Creatinine August 30, 2020 2:57am 1.76 0.7-1.3 [facility], 4 [facility] [address] Sodium Level August 30, 2020 2:57am 141 136-145 [facility], 4 [facility] [address] Potassium Level August 30, 2020 2:57am 5.0 3.5-5.1 [facility], 4 [facility] [address] Chloride Level August 30, 2020 2:57am 103 98-107 [facility], 4 [facility] [address] Carbon Dioxide Level August 30, 2020 2:57am 27 21 -32 [facility], 4 [facility] [address] Calcium Level August 30, 2020 2:57am 9.2 8.5-10.1 [facility], 4 [facility] [address] Anion Gap August 30, 2020 2:57am 11.0 5-12 [facility], 4 [facility] [address] Estimated GFR (MDRD) August 30, 2020 2:57am 39 GFR IS CALCULATED IN mL/min/1.73m2 NORMAL FUNCTION: >90MILDLY DECREASED: 60-89MILDY TO MODERATELY DECREASED: 45-59 MODERATELY TO SEVERELY DECREASED: 30-44SEVERELY DECREASED: 15-29RENAL FAILURE: <15 [facility], 4 [facility] [address] Amylase Level August 30, 2020 2:57am 74 25-115 [facility], 4 [facility] [address] Lipase August 30, 2020 2:57am 169 73-393 [facility], 4 [facility] [address] Thyroid Stimulating Hormone (TSH) August 30, 2020 2:57am 3.887 0.36-3.74 [facility], 4 [facility] [address] Health Concerns No known health concerns documented Chief Complaint and Reason for Visit Reason for Visit SHOULDER PAIN FROM A FALL Encounters Encounter Location(s) Arrival/Admit Date Discharge/Depart Date Provider(s) Departed Emergency [facility] September 25, 2020 5:53am September 25, 2020 7:53am BROOK EDOUARD @ Registered Clinical [facility] August 30, 2020 2:49am ALAN BOWER Assessments No Assessments Information Available Functional Status No Functional Status information available Goals No Goals Information Available Immunizations No Immunization Information Available Mental Status No Mental Status Information Available Medical Equipment No Medical Equipment Information available Insurance Providers Guarantor ESTRELLA MENDOZA JR Address [address] [place] [address] Contact Info. Home Phone: Payer Policy Id Coverage Id Subscriber's Name Subscriber Id Effect tameka Date Expiration Date R [id number] THIAGO MENDOZA September MEDICARE - [facility] [id number] ESTRELLA MENDOZA JR 2017 [employer] [id number] DONI MENDOZA JR 2018 Social History Assigned Sex Male Vital Signs No vital signs result information available.
--- OUTSIDE RECORDS SUMMARY | 2020-10-17 11:15 | CCD ---
Author Author Colleen Huang DO Organization Colleen Huang DO Address [address] [place], [place] [id number] Care Team Providers Care Community Service Worker Name Role Phone Reina GOLDEN MA, Celestine Renteria Unavailable Colleen Huang DO Unavailable Colleen Huang DO PCP ENCOUNTERS Encounter Performer Loca tion Date Emotional stress [SNOMED-CT: 038124089] Dr. Colleen Huang DO 08-30-2020 Type II diabetes mellitus poorly control led [SNOMED-CT: 948116830] Dr. Colleen Huang DO 08-30-2020 Acute pancreatitis [SNOMED-CT: 268214254] Dr. Colleen Huang DO 08-23-2020 Type II diabetes mellitus poorly control led [SNOMED-CT: 216486380] Dr. Colleen Huang DO 08-23-2020 Generalised itching [SNOMED-CT: 266356913] Celestine Huang, DO 08-23-2020 Thyroiditis [SNOMED-CT: 00012732] Dr Joe Huang DO 08-23-2020 Chronic kidney disease [SNOMED-CT: 496540116] Dr. Colleen Huang DO 08-23-2020 Acute pancreatitis [SNOMED-CT: 697562900] Dr. Colleen Huang DO 08-15-2020 Type II diabetes mellitus poorly control led [SNOMED-CT: 308746438] Dr. Colleen Huang DO 08-15-2020 Generalised itching [SNOMED-CT: 595974229] Celestine Huang, DO 08-15-2020 Acute pancreatitis [SNOMED-CT: 107612652] Dr. Colleen Huang, DO 08-14-2020 Type II diabetes mellitus poorly control led [SNOMED-CT: 045347533] Dr. Colleen Huang, DO 08-14-2020 Other hyperlipidemia [ICD10: E78.49] Dr. Colleen Huang, DO 08-14-2020 Balanitis [SNOMED-CT: 22663934] Dr. Colleen Huang, DO 05-30-2020 Type II diabetes mellitus poorly control led [SNOMED-CT: 177691037] Dr. Colleen Huang, DO 05-30-2020 Type II diabetes mellitus poorly control led [SNOMED-CT: 399363127] Dr. Colleen Huang, DO 03-22-2020 Other hyperlipidemia [ICD10: E78.49] Dr. Colleen Huang, DO 03-22-2020 DIABETES MELLITUS WITHOUT MENTION OF COM PLICATION [SNOMED-CT: 072168194] N/A N/A 03-15-2020 Acute rhinosinusitis [SNOMED-CT: 402578269] Dr. Colleen Huang, DO 09-08-2019 Upper respiratory infection [SNOMED-CT: 38722013] Dr. Colleen Huang, DO 09-08-2019 DIABETES WITH RENAL MANIFESTATIONS TYPE II OR UNSPECIFIED TYPE NOT STATED UNCONTROLLED [SNOMED-CT: 936989150] Dr. Colleen Huang, DO 08-13-2019 UNSPECIFIED ESSENTIAL HYPERTENSION [SNOMED-CT: 1839078 0] N/A N/A 08-13-2019 ANXIETY STATE UNSPECIFIED [SNOMED-CT: 495107180] Celestine Huang, DO 08-13-2019 CHRONIC KIDNEY DISEASE STAGE II (MILD) [SNOMED-CT: 431 306874] Dr. Colleen Huang, DO 08-13-2019 Other specified vaccination [ICD10: Z23] Celestine Huang, DO 08-13-2019 Pain in left foot [SNOMED-CT: 908801865334844] Dr. Colleen Huang, DO 06-18-2019 DIABETES MELLITUS WITHOUT MENTION OF COM PLICATION [SNOMED-CT: 137798504] Celestine Huang, DO 06-18-2019 DIABETES WITH RENAL MANIFESTATIONS TYPE II OR UNSPECIFIED TYPE NOT STATED UNCONTROLLED [SNOMED-CT: 386964569] Dr. Colleen Huang, DO 03-24-2019 Contusion of lower back and pelvis, init ial encounter [ICD10: S30.0XXA] Dr. Colleen Huang, DO 12-14-2018 DIABETES WITH RENAL MANIFESTATIONS TYPE II OR UNSPECIFIED TYPE NOT STATED UNCONTROLLED [SNOMED-CT: 301573686] Dr. Colleen Huang, DO 12-14-2018 DIABETES MELLITUS WITHOUT MENTION OF COM PLICATION [SNOMED-CT: 105588207] N/A N/A 09-07-2018 DIABETES WITH RENAL MANIFESTATIONS TYPE II OR UNSPECIFIED TYPE NOT STATED UNCONTROLLED [SNOMED-CT: 768145778] Dr. Colleen Huang, DO 07-20-2018 Other hyperlipidemia [ICD10: E78.49] Dr. Colleen Huang, DO 07-20-2018 Back pain [SNOMED-CT: 636900352] Dr. Colleen Huang, DO 06-03-2018 DIABETES WITH RENAL MANIFESTATIONS TYPE II OR UNSPECIFIED TYPE NOT STATED UNCONTROLLED [SNOMED-CT: 213967999] Dr. Colleen Huang, DO 06-03-2018 Arthropathy of left shoulder [SNOMED-CT: 7291286793351 9103] Dr. Colleen Huang, DO 06-03-2018 DIABETES WITH RENAL MANIFESTATIONS TYPE II OR UNSPECIFIED TYPE NOT STATED UNCONTROLLED [SNOMED-CT: 303720487] Dr. Colleen Huang, DO 03-27-2018 Viral gastroenteritis [SNOMED-CT: 204649133] Dr. Colleen Huang, DO 12-26-2017 DIABETES WITH RENAL MANIFESTATIONS TYPE II OR UNSPECIFIED TYPE NOT STATED UNCONTROLLED [SNOMED-CT: 069341249] Dr. Colleen Huang, DO 12-26-2017 Cat bite [SNOMED-CT: 740767054] Dr. Colleen Huang, DO 12-26-2017 DIABETES WITH RENAL MANIFESTATIONS TYPE II OR UNSPECIFIED TYPE NOT STATED UNCONTROLLED [SNOMED-CT: 935694797] Dr. Colleen Huang, DO 09-24-2017 DIABETES MELLITUS WITHOUT MENTION OF COM PLICATION [SNOMED-CT: 120584329] Celestine Huang, DO 09-24-2017 ROUTINE GENERAL MEDICAL EXAMINATION AT A HEALTH CARE FACILITY [SNOMED-CT: 203915929] Celestine Huang, DO 06-02-2017 DIABETES WITH RENAL MANIFESTATIONS TYPE II OR UNSPECIFIED TYPE NOT STATED UNCONTROLLED [SNOMED-CT: 430075016] Dr. Colleen Huang, DO 06-02-2017 Allergic contact dermatitis of male melissa isamar [SNOMED-CT: 232048978] Dr. Colleen Huang, DO 03-07-2017 Other genital problems [ICD10: R68.89] Dr. Colleen Huang, DO 03-07-2017 DIABETES WITH RENAL MANIFESTATIONS TYPE II OR UNSPECIFIED TYPE NOT STATED UNCONTROLLED [SNOMED-CT: 051103180] Dr. Colleen Huang, DO 03-07-2017 Back pain [SNOMED-CT: 432914759] Dr. Colleen Huang, DO 03-07-2017 LUMBAGO [SNOMED-CT: 980184245] Jose Angel Huang, DO 03-07-2017 Penile cellulitis/abscess/boil [SNOMED-CT: 545498166] Dr. Colleen Huang, DO 01-15-2017 DIABETES WITH RENAL MANIFESTATIONS TYPE II OR UNSPECIFIED TYPE NOT STATED UNCONTROLLED [SNOMED-CT: 957344918] Dr. Colleen Huang, DO 01-15-2017 Back pain [SNOMED-CT: 641815104] Dr. Colleen Huang, DO 11-06-2016 DIABETES WITH RENAL MANIFESTATIONS TYPE II OR UNSPECIFIED TYPE NOT STATED UNCONTROLLED [SNOMED-CT: 611324456] Dr. Colleen Huang, DO 11-06-2016 UNSPECIFIED ESSENTIAL HYPERTENSION [SNOMED-CT: 6289801 0] N/A N/A 11-06-2016 Bronchospasm [SNOMED-CT: 6215727] Dr Joe Huang, DO 09-04-2016 Back pain [SNOMED-CT: 081559019] Dr. Colleen Huang, DO 09-04-2016 Primary atypical interstitial pneumonia [SNOMED-CT: 35 523743] Dr. Colleen Huang, DO 09-04-2016 Back pain [SNOMED-CT: 372915285] Dr. Colleen Huang, DO 07-10-2016 DIABETES WITH RENAL MANIFESTATIONS TYPE II OR UNSPECIFIED TYPE NOT STATED UNCONTROLLED [SNOMED-CT: 037955106] Dr. Colleen Huang, DO 07-10-2016 Back pain [SNOMED-CT: 857835123] Dr. Colleen Huang, DO 05-15-2016 CHRONIC KIDNEY DISEASE STAGE II (MILD) [SNOMED-CT: 431 239210] Dr. Colleen Huang, DO 05-15-2016 DIABETES WITH RENAL MANIFESTATIONS TYPE II OR UNSPECIFIED TYPE NOT STATED UNCONTROLLED [SNOMED-CT: 817599572] Dr. Colleen Huang, DO 05-15-2016 LUMBAGO [SNOMED-CT: 938096941] Jose Angel Huang, DO 05-15-2016 Other specified vaccination [ICD10: Z23] Celestine Huang, DO 05-15-2016 Back pain [SNOMED-CT: 895018023] Dr. Colleen Huang, DO 03-18-2016 DIABETES WITH RENAL MANIFESTATIONS TYPE II OR UNSPECIFIED TYPE NOT STATED UNCONTROLLED [SNOMED-CT: 646261710] Dr. Colleen Huang, DO 03-18-2016 DIABETES WITH RENAL MANIFESTATIONS TYPE II OR UNSPECIFIED TYPE NOT STATED UNCONTROLLED [SNOMED-CT: 002874199] Dr. Colleen Huang, DO 01-22-2016 Exogenous hyperlipidemia [SNOMED-CT: 657169339] Dr. Colleen Huang, DO 01-22-2016 ANXIETY STATE UNSPECIFIED [SNOMED-CT: 150915354] Celestine Huang, DO 01-22-2016 DIABETES WITH RENAL MANIFESTATIONS TYPE II OR UNSPECIFIED TYPE NOT STATED UNCONTROLLED [SNOMED-CT: 059604459] Dr. Colleen Huang, DO 12-15-2015 Otitis externa [SNOMED-CT: 2813362] Celestine Huang, DO 12-15-2015 Impacted cerumen [SNOMED-CT: 08275909] Celestine Huang, DO 12-15-2015 DIABETES WITH RENAL MANIFESTATIONS TYPE II OR UNSPECIFIED TYPE NOT STATED UNCONTROLLED [SNOMED-CT: 822410388] Dr. Colleen Huang, DO 11-17-2015 Back pain [SNOMED-CT: 619961066] Dr. Colleen Huang, DO 11-17-2015 UNSPECIFIED SLEEP APNEA [SNOMED-CT: 30240557] Celestine Huang, DO 11-17-2015 UNSPECIFIED ESSENTIAL HYPERTENSION [SNOMED-CT: 8813032 0] N/A N/A 11-17-2015 ROUTINE GENERAL MEDICAL EXAMINATION AT A HEALTH CARE FACILITY [SNOMED-CT: 190564486] Celestine Huang, DO 09-27-2015 Back pain [SNOMED-CT: 514559976] Dr. Colleen Huang, DO 08-11-2015 Dysuria-frequency syndrome [SNOMED-CT: 6189557] Dr. Colleen Huang, DO 08-11-2015 LUMBAGO [SNOMED-CT: 999160727] Jose Angel Huang, DO 06-19-2015 CLOSED FRACTURE OF LUMBAR VERTEBRA WITHO UT SPINAL [SNOMED-CT: 81423706] Celestine Huang, DO 06-19-2015 DIABETES WITH RENAL MANIFESTATIONS TYPE II OR UNSPECIFIED TYPE NOT STATED UNCONTROLLED [SNOMED-CT: 605938066] Dr. Colleen Huang, DO 06-19-2015 DIABETES WITH RENAL MANIFESTATIONS TYPE II OR UNSPECIFIED TYPE NOT STATED UNCONTROLLED [SNOMED-CT: 262533489] Dr. Colleen Huang, DO 04-26-2015 Back pain [SNOMED-CT: 979956552] Dr. Colleen Huang, DO 04-26-2015 Other constipation [ICD9: 564.09] Dr Joe Huang, DO 01-18-2015 Back pain [SNOMED-CT: 750668898] Dr. Colleen Huang, DO 01-18-2015 DIABETES WITH RENAL MANIFESTATIONS TYPE II OR UNSPECIFIED TYPE NOT STATED UNCONTROLLED [SNOMED-CT: 247751095] Dr. Colleen Huang, DO 11-30-2014 CHRONIC KIDNEY DISEASE STAGE II (MILD) [SNOMED-CT: 431 809146] Dr. Colleen Huang, DO 11-30-2014 UNSPECIFIED ESSENTIAL HYPERTENSION [SNOMED-CT: 7200894 0] N/A N/A 11-30-2014 DIABETES WITH RENAL MANIFESTATIONS TYPE II OR UNSPECIFIED TYPE NOT STATED UNCONTROLLED [SNOMED-CT: 819911798] Dr. Colleen uHang, DO 10-19-2014 CHRONIC KIDNEY DISEASE STAGE II (MILD) [SNOMED-CT: 431 574512] Dr. Colleen Huang, DO 10-19-2014 DIABETES WITH RENAL MANIFESTATIONS TYPE II OR UNSPECIFIED TYPE NOT STATED UNCONTROLLED [SNOMED-CT: 009700051] Dr. Colleen Huang, DO 09-16-2014 DIABETES WITH RENAL MANIFESTATIONS TYPE II OR UNSPECIFIED TYPE NOT STATED UNCONTROLLED [SNOMED-CT: 021380304] Dr. Colleen Haung, DO 09-14-2014 CHRONIC KIDNEY DISEASE STAGE II (MILD) [SNOMED-CT: 431 933476] Dr. Colleen Huang, DO 09-14-2014 ROUTINE GENERAL MEDICAL EXAMINATION AT A HEALTH CARE FACILITY [SNOMED-CT: 634834017] Celestine Huang, DO 08-22-2014 Other specified vaccination [ICD10: Z23] Celestine Huang, DO 08-22-2014 DIABETES MELLITUS WITHOUT MENTION OF COM PLICATION [SNOMED-CT: 155479519] N/A N/A 05-09-2014 DIABETES MELLITUS WITHOUT MENTION OF COM PLICATION [SNOMED-CT: 423376127] Celestine Huang, DO 03-16-2014 Back pain [SNOMED-CT: 595470276] Dr. Colleen Huang, DO 03-16-2014 CONTACT DERMATITIS AND OTHER ECZEMA UNSP ECIFIED CA [SNOMED-CT: 494315219] N/A N/A 03-16-2014 UNSPECIFIED ESSENTIAL HYPERTENSION [SNOMED-CT: 9935740 0] N/A N/A 03-16-2014 DIABETES MELLITUS WITHOUT MENTION OF COM PLICATION [SNOMED-CT: 206853620] Celestine Huang, DO 11-05-2013 Back pain [SNOMED-CT: 843436584] Dr. Colleen Huang, DO 11-05-2013 CLOSED FRACTURE OF LUMBAR VERTEBRA WITHO UT SPINAL [SNOMED-CT: 52640394] Celestine Huang, DO 11-05-2013 ANXIETY STATE UNSPECIFIED [SNOMED-CT: 285120270] Celestine Huang, DO 11-05-2013 DIABETES MELLITUS WITHOUT MENTION OF COM PLICATION [SNOMED-CT: 306061924] Celestine Huang, DO 06-11-2013 UNSPECIFIED ESSENTIAL HYPERTENSION [SNOMED-CT: 8197382 0] N/A N/A 06-11-2013 INSOMNIA UNSPECIFIED [SNOMED-CT: 018498675] Dr. Colleen Huang, DO 06-09-2013 ANXIETY STATE UNSPECIFIED [SNOMED-CT: 999430483] Celestine Huang, DO 06-09-2013 DIABETES MELLITUS WITHOUT MENTION OF COM PLICATION [SNOMED-CT: 528568389] Celestine Huang, DO 02-17-2013 HYPERPLASIA OF PROSTATE UNSPECIFIED WITH OUT URINAR [SNOMED-CT: 925567696] Celestine Huang, DO 02-17-2013 CLOSED FRACTURE OF LUMBAR VERTEBRA WITHO UT SPINAL [SNOMED-CT: 83044651] Celestine Huang, DO 02-17-2013 UNSPECIFIED ESSENTIAL HYPERTENSION [SNOMED-CT: 0570166 0] N/A N/A 02-17-2013 ROUTINE GENERAL MEDICAL EXAMINATION AT A HEALTH CARE FACILITY [SNOMED-CT: 872268559] Celestine Huang, DO 11-02-2012 DIABETES MELLITUS WITHOUT MENTION OF COM PLICATION [SNOMED-CT: 486996955] Celestine Huang, DO 08-28-2012 LUMBAGO [SNOMED-CT: 385778336] Jose Angel Huang, DO 08-05-2012 DIABETES MELLITUS WITHOUT MENTION OF COM PLICATION [SNOMED-CT: 216288641] Celestine Huang, DO 08-05-2012 UNSPECIFIED ESSENTIAL HYPERTENSION [SNOMED-CT: 7555254 0] N/A N/A 08-05-2012 DIABETES MELLITUS WITHOUT MENTION OF COM PLICATION [SNOMED-CT: 274508064] Celestine Huang, DO 02-26-2012 LUMBAGO [SNOMED-CT: 364163062] Jose Angel Huang, DO 02-26-2012 UNSPECIFIED ESSENTIAL HYPERTENSION [SNOMED-CT: 5293374 0] N/A N/A 02-26-2012 DIABETES MELLITUS WITHOUT MENTION OF COM PLICATION [SNOMED-CT: 470116567] Celestine Huang, DO 10-23-2011 LUMBAGO [SNOMED-CT: 223038704] Jose Angel Huang, DO 10-23-2011 PAIN IN JOINT INVOLVING SHOULDER REGION [SNOMED-CT: 915608188] Celestine Huang, DO 08-21-2011 DIABETES MELLITUS WITHOUT MENTION OF COM PLICATION [SNOMED-CT: 485633937] Celestine Huang, DO 08-21-2011 HYPERPLASIA OF PROSTATE UNSPECIFIED WITH OUT URINAR [SNOMED-CT: 576127801] Celestine Huang, DO 08-21-2011 UNSPECIFIED ESSENTIAL HYPERTENSION [SNOMED-CT: 5284856 0] N/A N/A 08-21-2011 Other specified vaccination [ICD10: Z23] Celestine Huang, DO 08-21-2011 PAIN IN JOINT INVOLVING SHOULDER REGION [SNOMED-CT: 970755821] Celestine Macias Chantal Reina, DO 06-19-2011 DIABETES MELLITUS WITHOUT MENTION OF COM PLICATION [SNOMED-CT: 542889305] Celestine Macias Chantal Huang, DO 06-19-2011 HYPERPLASIA OF PROSTATE UNSPECIFIED WITH OUT URINAR [SNOMED-CT: 771888285] Celestine Macias Chantal Reina, DO 06-19-2011 UNSPECIFIED ESSENTIAL HYPERTENSION [SNOMED-CT: 6968715 0] N/A N/A 06-19-2011 Other specified vaccination [ICD10: Z23] Celestine Macias Chantal Reina, DO 06-19-2011 PAIN IN JOINT INVOLVING SHOULDER REGION [SNOMED-CT: 938728599] Celestine Macias Chantal Reina, DO 03-08-2011 DIABETES MELLITUS WITHOUT MENTION OF COM PLICATION [SNOMED-CT: 010493057] Celestine Huang, DO 03-08-2011 HYPERPLASIA OF PROSTATE UNSPECIFIED WITH OUT URINAR [SNOMED-CT: 641325600] Celestine Macias Chantal Huang, DO 03-08-2011 UNSPECIFIED ESSENTIAL HYPERTENSION [SNOMED-CT: 3520110 0] N/A N/A 03-08-2011 PAIN IN JOINT INVOLVING SHOULDER REGION [SNOMED-CT: 437006061] Celestine Huang, DO 12-26-2010 DIABETES MELLITUS WITHOUT MENTION OF COM PLICATION [SNOMED-CT: 089607474] Celestine Huang, DO 12-26-2010 HYPERPLASIA OF PROSTATE UNSPECIFIED WITH OUT URINAR [SNOMED-CT: 896167191] Celestine Macias Chantal Reina, DO 12-26-2010 UNSPECIFIED ESSENTIAL HYPERTENSION [SNOMED-CT: 1172017 0] N/A N/A 12-26-2010 Back pain [SNOMED-CT: 581204660] Dr. Colleen Huang, DO 12-14-2010 CLOSED FRACTURE OF LUMBAR VERTEBRA WITHO UT SPINAL [SNOMED-CT: 55764735] Celestine Huang, DO 12-14-2010 DIABETES MELLITUS WITHOUT MENTION OF COM PLICATION [SNOMED-CT: 418507626] Celestine Huang, DO 09-24-2010 CLOSED FRACTURE OF LUMBAR VERTEBRA WITHO UT SPINAL [SNOMED-CT: 13412222] Celestine Huang, DO 09-24-2010 UNSPECIFIED ESSENTIAL HYPERTENSION [SNOMED-CT: 6480717 0] N/A N/A 09-24-2010 DIABETES MELLITUS WITHOUT MENTION OF COM PLICATION [SNOMED-CT: 352177063] Celestine Huang, DO 08-29-2010 CLOSED FRACTURE OF LUMBAR VERTEBRA WITHO UT SPINAL [SNOMED-CT: 93932149] Celestine Huang, DO 08-29-2010 UNSPECIFIED ESSENTIAL HYPERTENSION [SNOMED-CT: 8515887 0] N/A N/A 08-29-2010 DIABETES MELLITUS WITHOUT MENTION OF COM PLICATION [SNOMED-CT: 948282635] Celestine Huang, DO 06-27-2010 CLOSED FRACTURE OF LUMBAR VERTEBRA WITHO UT SPINAL [SNOMED-CT: 46922018] Celestine Huang, DO 06-27-2010 UNSPECIFIED ESSENTIAL HYPERTENSION [SNOMED-CT: 9100487 0] N/A N/A 06-27-2010 CLOSED FRACTURE OF LUMBAR VERTEBRA WITHO UT SPINAL [SNOMED-CT: 24088988] Celestine Huang, DO 06-13-2010 DIABETES MELLITUS WITHOUT MENTION OF COM PLICATION [SNOMED-CT: 529676933] Celestine Huang, DO 03-23-2010 IMPOTENCE OF ORGANIC ORIGIN [SNOMED-CT: 149199740] N/A N/A 03-23-2010 UNSPECIFIED ESSENTIAL HYPERTENSION [SNOMED-CT: 1800786 0] N/A N/A 03-23-2010 UNSPECIFIED CATARACT [SNOMED-CT: 469667369] Celestine Huang, DO 01-26-2010 DIABETES MELLITUS WITHOUT MENTION OF COM PLICATION [SNOMED-CT: 569401060] Celestine Huang, DO 01-26-2010 UNSPECIFIED SLEEP APNEA [SNOMED-CT: 15221100] Celestine Huang, DO 01-26-2010 UNSPECIFIED ESSENTIAL HYPERTENSION [SNOMED-CT: 3040174 0] N/A N/A 01-26-2010 UNSPECIFIED DISORDER OF SKIN AND SUBCUTA NEOUS TISS [SNOMED-CT: 73250934] Celestine Huang, DO 01-26-2010 IMPOTENCE OF ORGANIC ORIGIN [SNOMED-CT: 094372910] N/A N/A 01-26-2010 DIABETES MELLITUS WITHOUT MENTION OF COM PLICATION [SNOMED-CT: 420106277] Celestine Huang, DO 12-20-2009 UNSPECIFIED ESSENTIAL HYPERTENSION [SNOMED-CT: 2548389 0] N/A N/A 12-20-2009 HYPERPLASIA OF PROSTATE UNSPECIFIED WITH OUT URINAR [SNOMED-CT: 179101085] Celestine Huang, DO 12-20-2009 UNSPECIFIED DISORDER OF SKIN AND SUBCUTA NEOUS TISS [SNOMED-CT: 72710895] Celestine Huang, DO 12-20-2009 IMPOTENCE OF ORGANIC ORIGIN [SNOMED-CT: 488702487] N/A N/A 12-20-2009 DIABETES MELLITUS WITHOUT MENTION OF COM PLICATION [SNOMED-CT: 696095317] N/A N/A 09-18-2009 UNSPECIFIED ESSENTIAL HYPERTENSION [SNOMED-CT: 2939830 0] N/A N/A 09-18-2009 IMPOTENCE OF ORGANIC ORIGIN [SNOMED-CT: 478837278] N/A N/A 09-18-2009 DIABETES MELLITUS WITHOUT MENTION OF COM PLICATION [SNOMED-CT: 851405156] N/A N/A 06-28-2009 DIABETES MELLITUS WITHOUT MENTION OF COM PLICATION [SNOMED-CT: 699036330] N/A N/A 06-16-2009 UNSPECIFIED ESSENTIAL HYPERTENSION [SNOMED-CT: 7613153 0] N/A N/A 06-16-2009 CONTACT DERMATITIS AND OTHER ECZEMA UNSP ECIFIED CA [SNOMED-CT: 786219977] N/A N/A 06-16-2009 ALLERGIES AND ADVERSE REACTIONS [...] hydrOXYzine hydrochloride 25 mg oral tablet, [RxNorm: 658009] hydrOXYzine one po bid prn and two po at hs 60 08/15/2020 Active atorvastatin 10 mg oral tablet, [RxNorm: 608640] atorvastatin one po hs daily 0 08/14/2020 Active metFORMIN 500 mg oral tablet, [RxNorm: 714862] metFORMIN one po bid 08/14/2020 Active HumaLOG 100 units/mL injectable solution, [RxNorm: 865 098] insulin lispro 6 units this am for sugar of 220....he h as a sliding scale 0 08/14/2020 Active Diflucan 150 mg oral tablet, [RxNorm: 260986] fluconazole one po now and repeat in 5 days 2 05/30/2020 Active Lotrisone 1%-0.05% topical cream, [RxNorm: 506030] clotrimazole-betamethasone dipropionate topic use as directed apply to genital area bid 30 05/30/2020 Active sertraline 100 mg oral tablet, [RxNorm: 264045] sertraline two po daily 180 019 Active lisinopril 10 mg oral tablet, [RxNorm: 728452] lisinopril one po daily 90 08/13/20 19 Active Linzess 145 mcg oral capsule, [RxNorm: 2430519] linaclotide one po daily prn constipation 90 08/13/2019 Active BD Pen Needle Mini U/F Unknown use as directed for lantus injection 200 2018 Active ibuprofen 800 mg oral tablet, [RxNorm: 339696] ibuprofen one po tid with food 90 06/23/2019 Active Lantus Solostar Pen 100 units/mL subcuta neous solution, [RxNorm: 579675] insulin glargine 14 units sq daily 15 12/18/2018 Active ProAir HFA 90 mcg/inh inhalation aerosol, [RxNorm: 745 752] albuterol two puffs qid prn wheeze 0 06/02/2017 Active Cortisporin-TC otic suspension, [RxNorm: 658570] colistin/neomycin/thonzonium/HC otic 4 gtts into left EAC bid 5 12/15/2015 Active aspirin 81 mg oral tablet, [RxNorm: 355365] aspirin one daily 1 11/17/2015 Active INSURANCE PROVIDERS Payer Name Policy Type P olicy ID Covered Libertarian ID Policy [employer] Health Insurance [id number] [facility] [id number] THIAGO MENDOZA ASSESSMENTS # Emotional stress (Z73.3):# Type II diabetes mellitus poorly controlled (E11.65): but improving PROBLEMS Problem Problem Status D ate Started Date Resolved Date Inactivated CLOSED FRACTURE OF LUMBAR VERTEBRA WITHO UT SPINAL [SNOMED-CT: 75317786] Active 06-13-2010 NA NA Type II diabetes mellitus poorly control led [SNOMED-CT: 773239842] Active 03-22-2020 NA NA Allergic contact dermatitis of male melissa isamar [SNOMED-CT: 573253935] Active 03-07-2017 NA NA Other genital problems [ICD10: R68.89] Active 03-07-2017 NA NA ROUTINE GENERAL MEDICAL EXAMINATION AT A HEALTH CARE FACILITY [SNOMED-CT: 898210905] Active 11-02-2012 NA NA Other specified vaccination [ICD10: Z23] Active 05-15-2016 NA NA DIABETES MELLITUS WITHOUT MENTION OF COM PLICATION [SNOMED-CT: 853999831] Active 12-20-2009 NA NA HYPERPLASIA OF PROSTATE UNSPECIFIED WITH OUT URINAR [SNOMED-CT: 763524723] Active 12-20-2009 NA NA UNSPECIFIED DISORDER OF SKIN AND SUBCUTA NEOUS TISS [SNOMED-CT: 84086387] Active 12-20-2009 NA NA Balanitis [SNOMED-CT: 43330250] Active 05-30-2020 NA NA Bronchospasm [SNOMED-CT: 9607990] Active 09-04-2016 NA NA Generalised itching [SNOMED-CT: 022817157] Active 08-15-2020 NA NA Other hyperlipidemia [ICD10: E78.49] Activ e 07-20-2018 NA NA Penile cellulitis/abscess/boil [SNOMED-CT: 777006903] Active 01-15-2017 NA NA Other constipation [ICD9: 564.09] Active 01-18-2015 NA NA UNSPECIFIED CATARACT [SNOMED-CT: 687963578] Active 01-26-2010 NA NA UNSPECIFIED SLEEP APNEA [SNOMED-CT: 91553835] Active 01-26-2010 NA NA Chronic kidney disease [SNOMED-CT: 432344127] Active 08-23-2020 NA NA Acute pancreatitis [SNOMED-CT: 382218284] Active 08-14-2020 NA NA Contusion of lower back and pelvis, init ial encounter [ICD10: S30.0XXA] Active 12-14-2018 NA NA Exogenous hyperlipidemia [SNOMED-CT: 037546569] Active 09-27-2015 NA NA Otitis externa [SNOMED-CT: 5052645] Active 12-15-2015 NA NA Impacted cerumen [SNOMED-CT: 20317340] Active 12-15-2015 NA NA INSOMNIA UNSPECIFIED [SNOMED-CT: 951064569] Active 06-09-2013 NA NA ANXIETY STATE UNSPECIFIED [SNOMED-CT: 018138983] Active 06-09-2013 NA NA NEED FOR PROPHYLACTIC VACCINATION AND IN OCULATION AGAINST INFLUENZA [SNOMED-CT: 338073995] Active 06-19-2011 NA NA Primary atypical interstitial pneumonia [SNOMED-CT: 35 905585] Active 09-04-2016 NA NA Viral gastroenteritis [SNOMED-CT: 182580127] Active 12-26-2017 NA NA Cat bite - wound [SNOMED-CT: 771605061] Active 12-26-2017 NA NA Cat bite [SNOMED-CT: 714076264] Active 12-26-2017 NA NA Cat bite [SNOMED-CT: 823123573] Active 12-26-2017 NA NA Emotional stress [SNOMED-CT: 952958511] Active 08-30-2020 NA NA BACKACHE UNSPECIFIED [SNOMED-CT: 197219091] Active 12-14-2010 NA NA PAIN IN JOINT INVOLVING SHOULDER REGION [SNOMED-CT: 600063692] Active 12-26-2010 NA NA DIABETES MELLITUS WITHOUT MENTION OF COM PLICATION [SNOMED-CT: 611526703] Active 05-19-2009 NA NA UNSPECIFIED ESSENTIAL HYPERTENSION [SNOMED-CT: 1359733 0] Active 05-19-2009 NA NA CONTACT DERMATITIS AND OTHER ECZEMA UNSP ECIFIED CA [SNOMED-CT: 435636375] Active 05-19-2009 NA NA Acute rhinosinusitis [SNOMED-CT: 174973526] Active 09-08-2019 NA NA Upper respiratory infection [SNOMED-CT: 55273214] Active 09-08-2019 NA NA LUMBAGO [SNOMED-CT: 236711939] Active 10-23-2011 NA NA SPRAIN OF UNSPECIFIED SITE OF SHOULDER A ND UPPER A [SNOMED-CT: 926326879] Active 06-28-2009 NA NA Back pain [SNOMED-CT: 474067206] Active 08-11-2015 NA NA Dysuria-frequency syndrome [SNOMED-CT: 0913677] Active 08-11-2015 NA NA Thyroiditis [SNOMED-CT: 14560437] Active 08-23-2020 NA NA Arthropathy of left shoulder [SNOMED-CT: 6051564852133 9103] Active 06-03-2018 NA NA Pain in left foot [SNOMED-CT: 488010834395773] Active 06-18-2019 NA NA DIABETES WITH RENAL MANIFESTATIONS TYPE II OR UNSPECIFIED TYPE NOT STATED UNCONTROLLED [SNOMED-CT: 812007632] Active 09-14-2014 NA NA CHRONIC KIDNEY DISEASE STAGE II (MILD) [SNOMED-CT: 431 620565] Active 09-14-2014 NA NA IMPOTENCE OF ORGANIC ORIGIN [SNOMED-CT: 650268978] Active 09-18-2009 NA NA PROCEDURES Procedure Date CPT Code Procedure 08/30/2020 08:24:51 [id number] Telephone evaluation and management service by a physician or other qualified health home day care provider who may report evaluation and management services provided to an established patient, parent, or guardian not originating from a related E/M service provided within the previous 7 days nor leading to an E/M service or procedure within the next 24 hours or soonest available appointment; 5-10 minutes of medical discussion 08/23/2020 09:37:34 [id number] Telephone evaluation and management service by a physician or other qualified health home day care provider who may report evaluation and management services provided to an established patient, parent, or guardian not originating from a related E/M service provided within the previous 7 days nor leading to an E/M service or procedure within the next 24 hours or soonest available appointment; 5-10 minutes of medical discussion 08/15/2020 08:57:07 [id number] Office or other outpatient visit for the [...] moderate severity. Physicians typically spend 15 minutes [id number] with the patient and/or family. 08/14/2020 09:42:50 [id number] Transitional Care Management Services with the following required elements: Communication (direct contact, telephone, electronic) with the patient and/or caregiver within 2 business days of discharge Medical decision making of high complexity during the service period Zxjk-wt-dqjz visit, within 7 calendar days of discharge 08/14/2020 09:42:50 G8427 Eligible clinician attests to documenting in the medical record they obtained, updated, or reviewed the patient's current medications 05/30/2020 13:09:49 86919 Office or other outpatient visit for the [...] moderate severity. Physicians typically spend 15 minutes yvry-vo-dzvj with the patient and/or family. 03/22/2020 09:10:00 01670 Office or other outpatient visit for the [...] moderate severity. Physicians typically spend 15 minutes dolm-dm-ieth with the patient and/or family. 03/15/2020 12:24:05 51841 Office or other outpatient visit for the evaluation and management of an established patient, that may not require the presence of a physician. Usually, the presenting problem(s) are minimal. Typically, 5 minutes are spent performing or supervising these services. 03/15/2020 12:24:05 04064 Hemoglobin; glycosylated (A1C) by device cleared by FDA for home use 03/15/2020 12:24:05 3046F Most recent hemoglobin A1c level greater than 9.0% (DM) 09/08/2019 08:19:29 64591 Office or other outpatient visit for the [...] high severity. Physicians typically spend 25 minutes hbev-yf-ircf with the patient and/or family. 09/08/2019 08:19:29 42240 Hemoglobin; glycosylated (A1C) by device cleared by FDA for home use 09/08/2019 08:19:29 3045F Most recent hemoglobin A1c (HbA1c) level 7.0-9.0% (DM) 08/13/2019 13:55:58 G0439 ANNUAL WELLNESS VISIT, SUBSEQUENT 08/13/2019 13:55:58 94475 Hemoglobin; glycosylated (A1C) by device cleared by FDA for home use 08/13/2019 13:55:58 79667 Influenza virus vaccine, quadrivalent (ccIIV4), derived from cell cultures, subunit, preservative and antibiotic free, 0.5 mL dosage, for intramuscular use 08/13/2019 13:55:58 G0008 ADMINISTRATION OF FLU VACCINE (V04.81) 08/13/2019 13:55:58 2021F Dilated retinal eye exam with interpretation by an windows server specialist or in store banker documented and reviewed (DM) 08/13/2019 13:55:58 G8427 Eligible clinician attests to documenting in the medical record they obtained, updated, or reviewed the patient's current medications 08/13/2019 13:55:58 3017F Colorectal cancer screening results documented and reviewed (PV) 08/13/2019 13:55:58 1036F Current tobacco non-user (CAD, CAP, COPD, PV) (DM) (IBD) 06/18/2019 09:23:34 67670 Office or other outpatient visit for the [...] high severity. Physicians typically spend 25 minutes zbjg-fp-qcgs with the patient and/or family. 06/18/2019 09:23:34 87269 Hemoglobin; glycosylated (A1C) by device cleared by FDA for home use 06/18/2019 09:23:34 3045F Most recent hemoglobin A1c (HbA1c) level 7.0-9.0% (DM) 03/24/2019 08:14:04 22541 Office or other outpatient visit for the [...] high severity. Physicians typically spend 25 minutes mpmw-ki-pfde with the patient and/or family. 03/24/2019 08:14:04 30019 Hemoglobin; glycosylated (A1C) by device cleared by FDA for home use 03/24/2019 08:14:04 3045F Most recent hemoglobin A1c (HbA1c) level 7.0-9.0% (DM) 03/24/2019 08:14:04 G8427 Eligible clinician attests to documenting in the medical record they obtained, updated, or reviewed the patient's current medications 03/23/2019 11:45:37 3017F Colorectal cancer screening results documented and reviewed (PV) 12/14/2018 08:01:40 90639 Office or other outpatient visit for the [...] high severity. Physicians typically spend 25 minutes ezfi-vi-zixb with the patient and/or family. 12/14/2018 08:01:40 82710 Collection of venous blood by venipuncture 12/14/2018 08:01:40 76507 Hemoglobin; glycosylated (A1C) by device cleared by FDA for home use 12/14/2018 08:01:40 3046F Most recent hemoglobin A1c level greater than 9.0% (DM) 12/14/2018 08:01:40 G8427 Eligible clinician attests to documenting in the medical record they obtained, updated, or reviewed the patient's current medications 09/07/2018 08:17:34 59627 Office or other outpatient visit for the evaluation and management of an established patient, that may not require the presence of a physician. Usually, the presenting problem(s) are minimal. Typically, 5 minutes are spent performing or supervising these services. 09/07/2018 08:17:34 02215 Hemoglobin; glycosylated (A1C) by device cleared by FDA for home use 09/07/2018 08:17:34 3044F Most recent hemoglobin A1c (HbA1c) level less than 7.0% (DM) 07/20/2018 13:54:05 66727 Periodic comprehensive preventive medicine reevaluation and management of an individual including an age and gender appropriate history, examination, counseling/anticipatory guidance/risk factor reduction interventions, and the ordering of laboratory/diagnostic procedures, established patient; 65 years and older 07/20/2018 13:54:05 10703 Hemoglobin; glycosylated (A1C) by device cleared by FDA for home use 07/20/2018 13:54:05 G8427 Eligible clinician attests to documenting in the medical record they obtained, updated, or reviewed the patient's current medications 07/20/2018 13:54:05 1036F Current tobacco non-user (CAD, CAP, COPD, PV) (DM) (IBD) 07/20/2018 13:54:05 3044F Most recent hemoglobin A1c (HbA1c) level less than 7.0% (DM) 06/03/2018 08:23:02 21606 Office or other outpatient visit for the [...] high severity. Physicians typically spend 25 minutes ugic-by-sotb with the patient and/or family. 06/03/2018 08:23:02 41557 Hemoglobin; glycosylated (A1C) by device cleared by FDA for home use 06/03/2018 08:23:02 3045F Most recent hemoglobin A1c (HbA1c) level 7.0-9.0% (DM) 03/27/2018 08:56:44 58468 Office or other outpatient visit for [...] moderate severity. Physicians typically spend 15 minutes iran-oc-ybuf with the patient and/or family. 03/27/2018 08:56:44 3045F Most recent hemoglobin A1c (HbA1c) level 7.0-9.0% (DM) 03/27/2018 08:56:44 43431 Hemoglobin; glycosylated (A1C) by device cleared by FDA for home use 03/27/2018 08:56:44 G8427 Eligible clinician attests to documenting in the medical record they obtained, updated, or reviewed the patient's current medications 12/26/2017 08:55:27 67645 Office or other outpatient visit for the [...] high severity. Physicians typically spend 25 minutes nuoj-gp-fenp with the patient and/or family. 12/26/2017 08:55:27 3045F Most recent hemoglobin A1c (HbA1c) level 7.0-9.0% (DM) 12/26/2017 08:55:27 40216 Hemoglobin; glycosylated (A1C) by device cleared by FDA for home use 12/26/2017 08:55:27 1036F Current tobacco non-user (CAD, CAP, COPD, PV) (DM) (IBD) 12/26/2017 08:55:27 G8427 Eligible clinician attests to documenting in the medical record they obtained, updated, or reviewed the patient's current medications 12/26/2017 08:55:27 2021F Dilated retinal eye exam with interpretation by an windows server specialist or in store banker documented and reviewed (DM) 09/24/2017 08:27:29 68117 Office or other outpatient visit for the [...] high severity. Physicians typically spend 25 minutes sxsl-zk-upve with the patient and/or family. 09/24/2017 08:27:29 71767 Hemoglobin; glycosylated (A1C) by device cleared by FDA for home use 09/24/2017 08:27:29 3045F Most recent hemoglobin A1c (HbA1c) level 7.0-9.0% (DM) 09/24/2017 08:27:29 1036F Current tobacco non-user (CAD, CAP, COPD, PV) (DM) (IBD) 06/02/2017 08:22:37 20734 Periodic comprehensive preventive medicine reevaluation and management [...] CAP, COPD, PV) (DM) (IBD) 06/02/2017 08:22:37 10359 Hemoglobin; glycosylated (A1C) by device cleared by FDA for home use 03/07/2017 09:18:02 46756 Office or other outpatient visit for the [...] high severity. Physicians typically spend 25 minutes btco-la-ycoi with the patient and/or family. 03/07/2017 09:18:02 99967 Hemoglobin; glycosylated (A1C) by device cleared by FDA for home use 01/15/2017 08:13:41 69994 Office or other outpatient visit for the [...] high severity. Physicians typically spend 25 minutes zbaw-dt-egxh with the patient and/or family. 11/11/2016 09:37:13 16158 Hemoglobin; glycosylated (A1C) by device cleared by FDA for home use 11/06/2016 08:26:32 59266 Office or other outpatient visit for the [...] moderate severity. Physicians typically spend 15 minutes gvkp-lz-xvea with the patient and/or family. 09/04/2016 09:23:52 11700 Office or other outpatient visit for the [...] moderate severity. Physicians typically spend 15 minutes wkcp-pk-zinn with the patient and/or family. 07/10/2016 08:21:01 29245 Office or other outpatient visit for the [...] high severity. Physicians typically spend 25 minutes lidi-xl-qlip with the patient and/or family. 07/10/2016 08:21:01 66383 Hemoglobin; glycosylated (A1C) by device cleared by FDA for home use 05/15/2016 08:27:09 80197 Office or other outpatient visit for the [...] moderate severity. Physicians typically spend 15 minutes bdcb-xh-uhos with the patient and/or family. 05/15/2016 08:27:09 49560 Hemoglobin; glycosylated (A1C) by device cleared by FDA for home use 05/15/2016 08:27:09 G0008 ADMINISTRATION OF FLU VACCINE (V04.81) 05/15/2016 08:27:09 Q2037 FLUVRIN 03/18/2016 08:09:18 87608 Office or other outpatient visit for the [...] high severity. Physicians typically spend 25 minutes gkkw-sz-jixy with the patient and/or family. 01/22/2016 08:23:52 42494 Collection of venous blood by venipuncture 01/22/2016 08:23:52 54935 Office or other outpatient visit for the [...] high severity. Physicians typically spend 25 minutes iqab-mc-rhpg with the patient and/or family. 12/15/2015 12:17:35 55354 Removal impacted cerumen (separate procedure), 1 or both ears 12/15/2015 12:17:35 96760 Office or other outpatient visit for the [...] moderate severity. Physicians typically spend 15 minutes vbjo-zo-baeu with the patient and/or family. 11/17/2015 08:15:21 15106 Collection of venous blood by venipuncture 11/17/2015 08:15:21 06039 Office or other outpatient visit for the [...] high severity. Physicians typically spend 40 minutes lyee-rt-rlkn with the patient and/or family. 11/17/2015 08:15:21 53787 Hemoglobin; glycosylated (A1C) by device cleared by FDA for home use 09/27/2015 08:29:20 94008 Periodic comprehensive preventive medicine reevaluation and management of an individual including an age and gender appropriate history, examination, counseling/anticipatory guidance/risk factor reduction interventions, and the ordering of laboratory/diagnostic procedures, established patient; 40-64 years 09/27/2015 08:29:20 94421 Collection of venous blood by venipuncture 09/27/2015 08:29:20 64586 Hemoglobin; glycosylated (A1C) by device cleared by FDA for home use 08/11/2015 08:14:29 87744 Office or other outpatient visit for the [...] moderate severity. Physicians typically spend 15 minutes hduw-bj-aaut with the patient and/or family. 06/19/2015 08:27:11 15469 Office or other outpatient visit for the [...] moderate severity. Physicians typically spend 15 minutes jljg-wi-kstd with the patient and/or family. 04/26/2015 08:20:21 36569 Office or other outpatient visit for the [...] moderate severity. Physicians typically spend 15 minutes elmt-nr-nepl with the patient and/or family. 04/26/2015 08:20:21 92145 Hemoglobin; glycosylated (A1C) by device cleared by FDA for home use 01/18/2015 08:11:52 91340 Office or other outpatient visit for the [...] moderate severity. Physicians typically spend 15 minutes qgix-ox-euex with the patient and/or family. 11/30/2014 08:15:54 85439 Office or other outpatient visit for the [...] high severity. Physicians typically spend 25 minutes cqbf-ld-hhna with the patient and/or family. 11/30/2014 08:15:54 24529 Collection of venous blood by venipuncture 11/30/2014 08:15:54 24198 Hemoglobin; glycosylated (A1C) by device cleared by FDA for home use 10/19/2014 00:00:00 51236 Collection of venous blood by venipuncture 10/19/2014 00:00:00 45744 Office or other outpatient visit for the [...] moderate severity. Physicians typically spend 15 minutes mhgr-cl-wkpw with the patient and/or family. 09/16/2014 00:00:00 02236 Office or other outpatient visit for the [...] moderate severity. Physicians typically spend 15 minutes gxwt-cq-zklb with the patient and/or family. 09/14/2014 00:00:00 60194 Office or other outpatient visit for the [...] moderate severity. Physicians typically spend 15 minutes ppml-de-ejbo with the patient and/or family. 08/22/2014 15:40:11 54727 INFLUENZA VACCINATION 08/22/2014 15:40:11 32122 Periodic comprehensive preventive medicine reevaluation and management of an individual including an age and gender appropriate history, examination, counseling/anticipatory guidance/risk factor reduction interventions, and the ordering of laboratory/diagnostic procedures, established patient; 40-64 years 08/22/2014 15:40:11 01209 Collection of venous blood by venipuncture 08/22/2014 15:40:11 Q2037 FLUVRIN 05/09/2014 00:00:00 02119 Office or other outpatient visit for the [...] moderate severity. Physicians typically spend 15 minutes xwgb-at-fpfu with the patient and/or family. 05/09/2014 00:00:00 15873 Hemoglobin; glycosylated (A1C) by device cleared by FDA for home use 03/16/2014 00:00:00 15283 Office or other outpatient visit for the [...] high severity. Physicians typically spend 25 minutes bcvb-ra-ppqq with the patient and/or family. 03/16/2014 00:00:00 15400 Hemoglobin; glycosylated (A1C) by device cleared by FDA for home use 11/05/2013 00:00:00 57854 Office or other outpatient visit for the [...] moderate severity. Physicians typically spend 15 minutes ouxs-lh-nzbk with the patient and/or family. 11/05/2013 00:00:00 44250 Collection of venous blood by venipuncture 11/05/2013 00:00:00 34696 Hemoglobin; glycosylated (A1C) by device cleared by FDA for home use 06/11/2013 00:00:00 30457 Periodic comprehensive preventive medicine reevaluation and management of an individual including an age and gender appropriate history, examination, counseling/anticipatory guidance/risk factor reduction interventions, and the ordering of laboratory/diagnostic procedures, established patient; 40-64 years 06/11/2013 00:00:00 12998 Hemoglobin; glycosylated (A1C) by device cleared by FDA for home use 06/09/2013 08:31:54 01568 Office or other outpatient visit for the [...] moderate severity. Physicians typically spend 15 minutes okhl-ql-eyww with the patient and/or family. 02/17/2013 08:29:32 56903 Office or other outpatient visit for the [...] moderate severity. Physicians typically spend 15 minutes jogy-ff-vowl with the patient and/or family. 02/17/2013 08:29:32 70150 Collection of venous blood by venipuncture 02/17/2013 08:29:32 35024 Hemoglobin; glycosylated (A1C) by device cleared by FDA for home use 11/02/2012 08:13:33 38533 Periodic comprehensive preventive medicine reevaluation and management of an individual including an age and gender appropriate history, examination, counseling/anticipatory guidance/risk factor reduction interventions, and the ordering of laboratory/diagnostic procedures, established patient; 40-64 years 11/02/2012 08:13:33 71923 Hemoglobin; glycosylated (A1C) by device cleared by FDA for home use 08/28/2012 08:54:25 32057 Office or other outpatient visit for the [...] moderate severity. Physicians typically spend 15 minutes cfer-rf-dqvo with the patient and/or family. 08/05/2012 11:43:02 56057 Office or other outpatient visit for the [...] moderate severity. Physicians typically spend 15 minutes uvyh-rd-zbtd with the patient and/or family. 08/05/2012 11:43:02 37332 Hemoglobin; glycosylated (A1C) by device cleared by FDA for home use 02/26/2012 08:27:00 84888 Collection of venous blood by venipuncture 02/26/2012 08:27:00 50689 Office or other outpatient visit for the [...] high severity. Physicians typically spend 25 minutes iloc-fn-wfuh with the patient and/or family. 10/23/2011 08:31:03 16297 Office or other outpatient visit for the [...] moderate severity. Physicians typically spend 15 minutes vpqq-ml-esls with the patient and/or family. 10/23/2011 08:31:03 35054 Hemoglobin; glycosylated (A1C) by device cleared by FDA for home use 08/21/2011 08:26:48 11122 Collection of venous blood by venipuncture 08/21/2011 08:26:48 36942 Office or other outpatient visit for the [...] moderate severity. Physicians typically spend 15 minutes rcal-tn-cxfk with the patient and/or family. 06/19/2011 08:43:09 68438 INFLUENZA VACCINATION 06/19/2011 08:43:09 04982 Collection of venous blood by venipuncture 06/19/2011 08:43:09 62460 Immunization administration (includes percutaneous, intradermal, subcutaneous, or intramuscular injections); one vaccine (single or combination vaccine/toxoid) 06/19/2011 08:43:09 91178 Office or other outpatient visit for the [...] high severity. Physicians typically spend 25 minutes ftvn-vt-mlle with the patient and/or family. 03/08/2011 08:41:01 52841 Office or other outpatient visit for the [...] high severity. Physicians typically spend 25 minutes xzlj-pb-lfzc with the patient and/or family. 12/26/2010 08:18:16 99906 Collection of venous blood by venipuncture 12/26/2010 08:18:16 96867 Office or other outpatient visit for the [...] moderate severity. Physicians typically spend 15 minutes qhhz-bu-qlsf with the patient and/or family. 12/14/2010 08:19:33 50768 Office or other outpatient visit for the [...] high severity. Physicians typically spend 25 minutes lpsf-ma-buaw with the patient and/or family. 09/24/2010 08:30:35 33047 Office or other outpatient visit for the [...] high severity. Physicians typically spend 25 minutes sygr-jr-vkiq with the patient and/or family. 08/29/2010 00:00:00 00411 Office or other outpatient visit for the [...] high severity. Physicians typically spend 25 minutes abwv-gx-quew with the patient and/or family. 06/27/2010 00:00:00 01492 Office or other outpatient visit for the [...] high severity. Physicians typically spend 25 minutes axpp-kx-kdbf with the patient and/or family. 06/27/2010 00:00:00 G8553 AT LEASTONE PRESCRIPTION CREATED DURING THE ENCOUNTER WAS GENERATED AND TRANSMITTED ELECTRONICALLY USING A [employer] SYSTEM 06/27/2010 00:00:00 76792 Collection of venous blood by venipuncture 06/13/2010 00:00:00 74272 Office or other outpatient visit for the [...] moderate severity. Physicians typically spend 15 minutes twds-xv-qfgi with the patient and/or family. 03/23/2010 00:00:00 02819 Office or other outpatient visit for the [...] high severity. Physicians typically spend 25 minutes tdyx-mf-byqb with the patient and/or family. 03/23/2010 00:00:00 79583 Collection of venous blood by venipuncture 01/26/2010 00:00:00 47999 Office or other outpatient visit for the [...] high severity. Physicians typically spend 25 minutes gsqw-de-rqiv with the patient and/or family. 12/20/2009 00:00:00 14112 Collection of venous blood by venipuncture 12/20/2009 00:00:00 28897 Office or other outpatient visit for the [...] moderate severity. Physicians typically spend 15 minutes fhjs-bi-gphw with the patient and/or family. 09/18/2009 00:00: 73492 Office or other outpatient visit for the [...] high severity. Physicians typically spend 25 minutes khhz-fd-rxud with the patient and/or family. 09/18/2009 00:00:00 68871 Collection of venous blood by venipuncture 06/28/2009 00:00:00 71142 Office or other outpatient visit for the [...] high severity. Physicians typically spend 25 minutes sqrw-ae-mahg with the patient and/or family. 06/16/2009 00:00:00 60934 Office or other outpatient visit for the [...] high severity. Physicians typically spend 25 minutes xyoj-lj-aqxe with the patient and/or family. 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 : 1950 Requested By: Jung Sofia Order Number: [id number] Reading MD: Shira Otero Measurements Intervals [place]adeau Rate: 77 P: 68 IL: 152 QRS: -30 QRSD: 100 T: 44 QT: 384 QTc: 437 Interpretive Statements SINUS RHYTHM BORDERLINE LEFT AXIS DEVIATION LOW VOLTAGE LIMB NSTTW ABNORMALITY NO PRIOR FOR COMPARISON Electronically Signed On 04-21-2016 20:05:36 EDT by Shira Otero DD: PEDRO 04/20/2016 1312 DT: [place] 04/21/20162004 DS: PEDRO 04/21/20162004 The Following Link and Pin can be used to access images associated with this report: [email or web address] [email or web address] N/A N/A 04/20/2016 13:07:00 HEMOGLOBIN A1c [...] Flag 08/11/2015 09:12:00 URINE MUCUS TRACE NEGAT PACSUAL H 08/11/2015 09:12:00 URINE COLOR. YELLOW -- [...] Observed Smoking Status Former smoker, [SNOME D-CT: 1100720], 75.00 pk yrs/20.00 yrs quit 11/30/2014 - 11/30/2014 TREATMENT PLAN Encounter Date Planned Care 08/30/2020 08:24:51 This visit was spent in [...] # 18, RF: 3. (Transmitted by Colleen ReinaDO joelle) Date Prescribed: 08/13/2019 ADDED Current Meds: HumaLOG [...] # 18, RF: 3. (Transmitted by Colleen ReinaDO joelle) Date Prescribed: 08/13/2019 ADDED Current Meds: HumaLOG [...] Appointment scheduled for a telehealth visit to [facility] on 03/22/2020. 03/15/2020 12:24:05 HgA1c is 10.0% Appointment scheduled for a telehealth visit to [facility] on 03/22/2020. 10/25/2019 08:14:07 Plan printed [...] the Left Deltoid (Mfg: SEQIRUS lot no. [id number], expires 02/29/2020) ORDERED/ADVISED: Order Date 08-13-2019 - [...] the Left Deltoid (Mfg: SEQIRUS lot no. [id number], expires 02/29/2020) ORDERED/ADVISED: Order Date 08-13-2019 - [...] # 90, RF: 3. (Transmitted by Colleen [place], DO) CHANGED Current Meds: Trulicity Pen 1.5 [...] the Left Deltoid (Mfg: SEQIRUS lot no. [id number], expires 02/29/2020) ORDERED/ADVISED: Order Date 08-13-2019 - [...] Flakito Estes MD You can download a [employer] melba to your computer and get these books on [employer]. Watch the movie "the magic pill" documentary on [employer] and watch it Counseling and coordination of [...] Flakito Estes MD You can download a [employer] melba to your computer and get these books on [employer]. Watch the movie "the magic pill" documentary on [employer] and watch it 06/18/2019 09:23:34 Plan printed and provided to patient: PRESCRIBE: ibuprofen 800 mg oral tablet, one po tid with food, # 90, RF: 1. (Transmitted by Colleen Huang DO) Barber christopher PROVIDED HM: CDSMP Given: "the obesity code", " the diabetes code", and "quide to fasting" by Flakito Estes MD You can download a [employer] melba to your computer and get these books on [employer]. Watch the movie "the magic pill" documentary on [employer] and watch it 03/24/2019 08:14:04 Plan printed and provided to patient: PROVIDED HM: CDSMP Given: "the obesity code", " the diabetes code", and "quide to fasting" by Flakito Estes MD You can download a [employer] melba to your [employer] for free. then you can go to [employer] and download books at a reduced jean. [...] Flakito Estes MD You can download a [employer] melba to your [employer] for free. then you can go to [employer] and download books at a reduced jean. Watch the movie called "the magic pill" PROVIDED HM: Recommendations for Testing HgbA1C in Individuals with Diabetes Mellitus Given: 8.1% Counseling and coordination of care: time a significant factor for this patient encounter...30minutes [facility] 03/24/2019 08:14:04 Plan printed and provided to patient: PROVIDED HM: CDSMP Given: "the obesity code", " the diabetes code", and "quide to fasting" by Flakito Estes MD You can download a [employer] melba to your [employer] for free. then you can go to [employer] and download books at a reduced jean. Watch the movie called "the magic pill" PROVIDED HM: Recommendations for Testing HgbA1C in Individuals with Diabetes Mellitus Given: 8.1% Counseling and coordination of care: time a significant factor for this patient encounter...30minutes [facility] HOKE 12/14/2018 08:01:40 PRESCRIBE: ibuprofen 800 mg oral [...] 200, RF: 3. (Transmitted by Colleen Reina, [employer]) PRESCRIBE: Lantus Solostar Pen 100 units/mL subcutaneous solution, 14 units sq daily, # 5, RF: 5. (Transmitted by Colleen [place], DO) PRESCRIBE: Lantus Solostar Pen 100 units/mL subcutaneous solution, 14 units sq daily, # 5, RF: 0. PRESCRIBE: metFORMIN 500 mg oral tablet, two po bid, # 360, RF: 2. (Transmitted by Colleen [place], DO) PRESCRIBE: metFORMIN 500 mg oral tablet, [...] with Diabetes Mellitus Given: 9.6% 09/07/2018 08:17:34 JINGLE WRITER recheck in 3 months PROVIDED HM: Recommendations for Testing HgbA1C in Individuals with Diabetes Mellitus Given: 6.9% 09/07/2018 08:17:34 JINGLE WRITER recheck in 3 months 07/20/2018 13:54:05 Plan [...] daily, # 5, RF: 0. (Transmitted by Colelen Huang DO) Date Prescribed: 06/26/2018 REMOVED from [...] Prescribed: 06/26/2018 REMOVED from Current Meds: HumaLOG MelaniaPen 100 units/mL injectable solution, 10 units sq [...] # 14, RF: 0. (Transmitted by Colleen Harwich PortDO joelle) Date Prescribed: 12/26/2017 Motion is lotion [...] 4, RF: 5. (Transmitted by Colleen Huang, ) when previous script is completed. PRESCRIBE: Trulicity [...] 5. (Transmitted by Colleen Huang, ) PRESCRIBE: glipiZIDE 10 mg oral tablet, [...] we have to work with? Time/Travel/Tastes/Treatments?? Arrange: [employer]? www.eatright.org Well Driller?www.diabeteseducator.org Pharmacy/Pharmacy benefits Literature? Recipes Diabetes [place] www.diabetes.org www.ncbde.org www.diabeeseducator.org/deap www.ndep.nih.gov www.diabetes.org www.learningaboutdiabetes.org www.diabeticconnect.[place] www.Play It InteractivenoGruvi.[place] www.diabeteswhattGenetics Squarednow.com www.peersforprogress.org 7 [place] Read about tanner [...] PROVIDED HM: Screening for Diabetic Retinopathy Given: roseyl[employer] optical. eyes are fine per patient PROVIDED [...] we have to work with? Time/Travel/Tastes/Treatments?? Arrange: [employer]? www.eatright.org Well Driller?www.diabeteseducator.org Pharmacy/Pharmacy benefits Literature? Recipes Diabetes [place] www.diabetes.org www.ncbde.org www.diabeeseducator.org/deap www.ndep.nih.gov www.diabetes.org www.learningaboutdiabetes.org www.diabeticconnect.com www.Play It InteractivenoGruvi.com www.diabeteswhattoknow.com www.peersforprogress.org 7 [place] Read about [...] we have to work with? Time/Travel/Tastes/Treatments?? Arrange: [employer]? www.eatright.org Well Driller?www.diabeteseducator.org Pharmacy/Pharmacy benefits Literature? Recipes Diabetes [place] www.diabetes.org www.ncbde.org www.diabeeseducator.org/deap www.ndep.nih.gov www.diabetes.org www.learningaboutdiabetes.org www.diabeticconnect.com www.whatGenetics Squarednow.com www.diabeteswhattoknow.com www.peersforprogress.org [place] Read about [...] Codes (M54.9, E11.29, M54.5) ORDERED/ADVISED: - Buscemi, Mellucianoore (Urology) ICD Codes (L23.9, R68.89) 03/07/2017 09:18:02 [...] ICD Codes (M54.9, E11.29, M54.5) ORDERED/ADVISED: - Buscealmas, Maryore (Urology) ICD Codes (L23.9, R68.89) 03/07/2017 [...] Buscemi, Melchiore (Urology) ICD Codes (L23.9, R68.89) 01/15/2017 08:13:41 [...] we have to work with? Time/Travel/Tastes/Treatments?? Arrange: [employer]? www.eatright.org Well Driller?www.diabeteseducator.org Pharmacy/Pharmacy benefits Literature? Recipes Diabetes [place] www.diabetes.org www.ncbde.org www.diabeeseducator.org/deap www.ndep.nih.gov www.diabetes.org www.learningaboutdiabetes.org www.diabeticconnect.com [...] we have to work with? Time/Travel/Tastes/Treatments?? Arrange: [employer]? www.eatright.org Well Driller?www.diabeteseducator.org Pharmacy/Pharmacy benefits Literature? Recipes Diabetes [place] www.diabetes.org www.ncbde.org www.diabeeseducator.org/deap www.ndep.nih.gov www.diabetes.org www.learningaboutdiabetes.org www.diabeticconnect.com www.Play It Interactivenow.[place] www.diabeteswhattoknow.com www.peersforprogress.org 7 [place] PROVIDED HM: [...] we have to work with? Time/Travel/Tastes/Treatments?? Arrange: [employer]? www.eatright.org Well Driller?www.diabeteseducator.org Pharmacy/Pharmacy benefits Literature? Recipes Diabetes [place] www.diabetes.org www.ncbde.org www.diabeeseducator.org/deap www.ndep.nih.gov www.diabetes.org www.learningaboutdiabetes.org www.diabeticconnect.[place] www.Play It InteractivenoGruvi.[place] www.diabeteswhattGenetics Squarednow.com www.peersforprogress.org [place] PROVIDED HM: Obesity: [...] pain, # 60, RF: 0. PROVIDED HM: CDSmicroDimensions Given: [employer] "Addictocarb Carb" Consider the Mediterranean Diet. Eliminate [...] 60, RF: 0. PROVIDED HM: CDSMP Given: [employer] "Addictocarb Carb" Consider the Mediterranean Diet. Eliminate [...] support/Move your body/Think positive/Be good to yourself/ [place] [employer] Diabetic Educators....7 behaviors for diabetes [...] support/Move your body/Think positive/Be good to yourself/ [place] [employer] Diabetic Educators....7 behaviors for diabetes [...] support/Move your body/Think positive/Be good to yourself/ [place] [employer] Diabetic Educators....7 behaviors for diabetes [...] the Left Deltoid (Mfg: OTHER lot no. [id number], expires 01/08/2017) PROVIDED HM: Screening for Depression in Adults Given: Not present Percoset script to [facility] 05/15/2016 08:27:09 Plan printed and provided to patient: PROVIDED VACCINATION: 1 dose of Fluvirin, 0.5 mL IM in the Left Deltoid (Mfg: OTHER lot no. [id number], expires 01/08/2017) PROVIDED HM: Screening for Depression in Adults Given: Not present Percoset script to [facility] 05/15/2016 08:27:09 Plan printed and provided to patient: PROVIDED VACCINATION: 1 dose of Fluvirin, 0.5 mL IM in the Left Deltoid (Mfg: OTHER lot no. [id number], expires 01/08/2017) PROVIDED HM: Screening for Depression in Adults Given: Not present Percoset script to [facility] 03/18/2016 08:09:18 Plan printed and [...] # 5, RF: 3. (Transmitted by Colleen [place], DO) PRESCRIBE: BD Pen Needle Mini U/F, use as directed for lantus injection, # 100, RF: 3. (Transmitted by Colleen Reina, DO) PRESCRIBE: Linzess 145 mcg oral capsule, one po daily prn constipation, # 90, RF: 3. (Transmitted by Davidson Green Centerard, DO) PRESCRIBE: Zoloft 100 mg oral tablet, one po daily, # 90, RF: 3. (Transmitted by Davidson Green Centerard, DO) PRESCRIBE: metFORMIN 500 mg oral tablet, one po bid pc, # 180, RF: 3. (Transmitted by Davidson Green Centerard, DO) PRESCRIBE: lisinopril 10 mg oral tablet, one po daily, # 90, RF: 3. (Transmitted by ColleenGraftysard, DO) PRESCRIBE: glipiZIDE 10 mg oral tablet, one po daily, # 90, RF: 3. (Transmitted by Davidson Green Centerard, DO) PRESCRIBE: cholecalciferol 50,000 intl units oral capsule, one po weekly, # 12, RF: 3. (Transmitted by Davidson Green Centerard, DO) PRESCRIBE: atorvastatin 10 mg oral tablet, one po daily, # 90, RF: 3. (Transmitted by [employer], DO) ORDERED/ADVISED: - CBC with diff (automated) [...] the Left Deltoid (Mfg: NOVARTIS lot no. [id number], expires 01/29/2015) ORDERED/ADVISED: - CBC with diff [...] 13:52:33 Instructions printed and provided to patient: TEST FACILITY ENGINEER site consulted prior to scheduled drug prescription. PRESCRIBE: Novofine 31, use for lantus injection daily, # 100, RF: 3. (Transmitted by Colleen [place], DO) PRESCRIBE: Lantus Solostar Pen 100 units/mL subcutaneous solution, 10 units sq daily in the evening, # 5, RF: 5. (Transmitted by ColleenGraftysard, DO) PRESCRIBE: Percoset 5/325mg, one po bid prn pain, # 60, RF: NONE. PRESCRIBE: lisinopril 10 mg oral tablet, one po daily, # 90, RF: 3. (Transmitted by ColleenGraftysard, DO) PRESCRIBE: atorvastatin 10 mg oral tablet, one po daily, # 90, RF: 3. (Transmitted by Colleen [place], DO) PRESCRIBE: Zoloft 100 mg oral tablet, one po daily, # 90, RF: 3. (Transmitted by Davidson Green Centerard, DO) PRESCRIBE: metFORMIN 1000 mg oral tablet, one po pc breakfast and supper, one half after lunch, # 225, RF: 3. (Transmitted by Davidson Green Centerard, DO) DISCONTINUE: metroNIDAZOLE 0.75% topical lotion apply [...] bid prn pain, # 60, RF: NONE. TEST FACILITY ENGINEER site consulted prior to scheduled drug prescription. [...] RF: 3. (Transmitted by Colleen Reina, DO) PROVIDED HM: [...] Ds) ICD9 Codes (250.00, 600.9, 272.4, 401.9) TEST FACILITY ENGINEER site consulted prior to scheduled drug prescription. just two days ago 06/09/2013 08:31:54 PRESCRIBE: Klonapin 0,5mg , one or two po hs prn insomnia, # 10, RF: 0. 02/17/2013 08:29:32 PRESCRIBE: Zoloft 50 mg oral tablet, one po daily, # 90, RF: 3. (Transmitted by Colleen Reina, DO) PRESCRIBE: metformin 1000 mg oral tablet, one po pc breakfast and supper, one half after lunch, # 225, RF: 3. (Transmitted by Colleen [place], DO) PRESCRIBE: lisinopril 10 mg oral tablet, one po daily, # 90, RF: 3. (Transmitted by Colleen Reina, DO) PRESCRIBE: atorvastatin 10 mg oral tablet, one po daily, # 90, RF: 3. (Transmitted by Colleen Reina, DO) Instructions printed and provided to patient: [...] # 180, RF: 3. (Transmitted by Colleen [place], DO) DISCONTINUE: cyclobenzaprine 10 mg oral tablet [...] RF: 3. (Transmitted by Colleen Reina, DO) ORDERED/ADVISED: - CBC with diff (automated) [...] Colleen Huang DO) All sent to [facility] today and 06/19/11. DISCONTINUE: gabapentin 300 mg [...] ml IM in the L DELTOID (Mfg: [employer] lot no. [id number], expires 02/28/2012) ORDERED/ADVISED: - Urine microalbumin (AODM) [...] PRESCRIBE: Gabapentin 100mg, one or two po [id number] prn back pain, # 180, RF: 5. [...]
--- OUTSIDE RECORDS SUMMARY | 2020-10-17 11:15 | CCD | Continuity of Care Document ---
Author Author Arjun MOSQUERA M.D. Organization Unknown Address [address], [address] [place] [address] Phone [phone] Problems Active Problems Provider Date Screening for malignant neoplasm of colon ALEXX Joyner Onset: 08/04/2018 Social History Type Date Description Comments Sex Unknown ETOH Use Denies alcohol use Tobacco Use Start: Unknown End: Unknown Patient is a former smoker QUIT 1997 Recreational Drug Use Denies Drug Use Allergies, Adverse Reactions, Alerts Description No Known Drug Allergies Medications Active Medications SIG Qnty Indications Ordering Provide r Date Aspirin 81mg Tablets DR 1 by mouth every day Unknown Metformin HCL 500mg Tablets 1 by mouth twice a day Unknown Linzess 145mcg Capsules take 1 capsule by mouth daily in the morning on an empty stomach. prn Unknown Sertraline HCL 100mg Tablets 1 by mouth every day Unknown Lisinopril 10mg Tablets 1 by mouth a day Unknown Lantus 100Unit/ML Solution every 3 days Unknown Humalog Kwikpen 100U nit/ML Solution Pen-Inject Use Per Sliding Scale Under The Skin Bef ore Meals And AT Bedtime Maximum Daily Dose 25 Units Unknown Atorvastatin Calcium 10mg Tablets Take One Tablet By Mouth Daily Unknown Immunizations Description No Information Available Vital Signs Date Vital Result Comment 09/04/2020 1:02pm BP Systolic 132 mmHg BP Diastolic 68 mmHg Height 72 inches 6'0" Weight 257.00 lb BMI (Body Mass Index) 34.9 kg/m2 [place] Body Weight 178 lb Weight 116.575 kg BSA (Body Surface Area) 2.37 m2 02/17/2019 2:54pm BP Systolic 140 mmHg BP Diastolic 80 mmHg Height 72 inches 6'0" Weight 267.38 lb BMI (Body Mass Index) 36.3 kg/m2 [place] Body Weight 178 lb Weight 121.281 kg BSA (Body Surface Area) 2.41 m2 Results Description No Information Available Procedures Description No Information Available Medical Devices Description No Information Available Encounters Description No Information Available Assessments Description No Information Available Plan of Treatment 02/17/2019 - Dayne Pruitt NP* Z86.010 Personal history of colonic polyps* Comments:* Patient has had a personal history of colonic polyps and at this point the recommendation is to proceed with a repeat colonoscopy risks as well as benefits have been discussed at length those including but not limited to bleeding infection damage to bowel including perforation and possibly anesthetic complications. Patient understands as well that small lesions/polyps can be missed with increased frequency and is much dependent on colonic prep. The patient agrees to proceed with colonoscopy as recommended. * Z12.11 Encounter for screening for malignant neoplasm of colon Functional Status Description No Information Available Mental Status Description No Information Available Referrals Refer to Reason for Referral Status Appt Date Arjun Mosquera M.D. [facility] PANCREATITIS Created 0 09/04/2020 [facility] [address] [place] [id number] [phone]
--- OUTSIDE RECORDS SUMMARY | 2020-10-17 11:16 | CCD ---
Author Author Colleen Huang DO Organization Colleen Huang DO Address [address] [place], [place] [id number] Care Team Providers [facility] Coordinator Name Role Phone Reina GOLDEN MA, Celestine Renteria Unavailable Colleen Huang DO Unavailable Colleen Huang DO PCP ENCOUNTERS Encounter Performer Loca tion Date Acute pancreatitis [SNOMED-CT: 547417300] Dr. Colleen Huang DO 08-23-2020 Type II diabetes mellitus poorly control led [SNOMED-CT: 463643183] Dr. Colleen Huang DO 08-23-2020 Generalised itching [SNOMED-CT: 470476089] Celestine Huang DO 08-23-2020 Thyroiditis [SNOMED-CT: 60386389] Dr Joe Huang DO 08-23-2020 Chronic kidney disease [SNOMED-CT: 339613303] Dr. Colleen Huang DO 08-23-2020 Acute pancreatitis [SNOMED-CT: 147627020] Dr. Colleen Huang DO 08-15-2020 Type II diabetes mellitus poorly control led [SNOMED-CT: 865867017] Dr. Colleen Huang DO 08-15-2020 Generalised itching [SNOMED-CT: 094720562] Celestine Huang DO 08-15-2020 Acute pancreatitis [SNOMED-CT: 642339223] Dr. Colleen Huang DO 08-14-2020 Type II diabetes mellitus poorly control led [SNOMED-CT: 846630868] Dr. Colleen Huang, DO 08-14-2020 Other hyperlipidemia [ICD10: E78.49] Dr. Colleen Huang, DO 08-14-2020 Balanitis [SNOMED-CT: 61670944] Dr. Colleen Huang, DO 05-30-2020 Type II diabetes mellitus poorly control led [SNOMED-CT: 871512926] Dr. Colleen Huang, DO 05-30-2020 Type II diabetes mellitus poorly control led [SNOMED-CT: 468465153] Dr. Colleen Huang, DO 03-22-2020 Other hyperlipidemia [ICD10: E78.49] Dr. Colleen Huang, DO 03-22-2020 DIABETES MELLITUS WITHOUT MENTION OF COM PLICATION [SNOMED-CT: 720744787] N/A N/A 03-15-2020 Acute rhinosinusitis [SNOMED-CT: 805776612] Dr. Colleen Huang, DO 09-08-2019 Upper respiratory infection [SNOMED-CT: 85723684] Dr. Colleen Huang, DO 09-08-2019 DIABETES WITH RENAL MANIFESTATIONS TYPE II OR UNSPECIFIED TYPE NOT STATED UNCONTROLLED [SNOMED-CT: 911764268] Dr. Colleen Huang, DO 08-13-2019 UNSPECIFIED ESSENTIAL HYPERTENSION [SNOMED-CT: 7578405 0] N/A N/A 08-13-2019 ANXIETY STATE UNSPECIFIED [SNOMED-CT: 297802068] Celestine Huang, DO 08-13-2019 CHRONIC KIDNEY DISEASE STAGE II (MILD) [SNOMED-CT: 431 878863] Dr. Colleen Huang, DO 08-13-2019 Other specified vaccination [ICD10: Z23] Celestine Huang, DO 08-13-2019 Pain in left foot [SNOMED-CT: 887859874948545] Dr. Colleen Huang, DO 06-18-2019 DIABETES MELLITUS WITHOUT MENTION OF COM PLICATION [SNOMED-CT: 993487048] Celestine Huang, DO 06-18-2019 DIABETES WITH RENAL MANIFESTATIONS TYPE II OR UNSPECIFIED TYPE NOT STATED UNCONTROLLED [SNOMED-CT: 869998443] Dr. Colleen Huang, DO 03-24-2019 Contusion of lower back and pelvis, init ial encounter [ICD10: S30.0XXA] Dr. Colleen Huang, DO 12-14-2018 DIABETES WITH RENAL MANIFESTATIONS TYPE II OR UNSPECIFIED TYPE NOT STATED UNCONTROLLED [SNOMED-CT: 335598461] Dr. Colleen Huang, DO 12-14-2018 DIABETES MELLITUS WITHOUT MENTION OF COM PLICATION [SNOMED-CT: 365242322] N/A N/A 09-07-2018 DIABETES WITH RENAL MANIFESTATIONS TYPE II OR UNSPECIFIED TYPE NOT STATED UNCONTROLLED [SNOMED-CT: 619676389] Dr. Colleen Huang, DO 07-20-2018 Other hyperlipidemia [ICD10: E78.49] Dr. Colleen Huang, DO 07-20-2018 Back pain [SNOMED-CT: 823889741] Dr. Colleen Huang, DO 06-03-2018 DIABETES WITH RENAL MANIFESTATIONS TYPE II OR UNSPECIFIED TYPE NOT STATED UNCONTROLLED [SNOMED-CT: 624046638] Dr. Colleen Huang, DO 06-03-2018 Arthropathy of left shoulder [SNOMED-CT: 3534203927173 9103] Dr. Colleen Huang, DO 06-03-2018 DIABETES WITH RENAL MANIFESTATIONS TYPE II OR UNSPECIFIED TYPE NOT STATED UNCONTROLLED [SNOMED-CT: 691576423] Dr. Colleen Huang, DO 03-27-2018 Viral gastroenteritis [SNOMED-CT: 675638298] Dr. Colleen Huang, DO 12-26-2017 DIABETES WITH RENAL MANIFESTATIONS TYPE II OR UNSPECIFIED TYPE NOT STATED UNCONTROLLED [SNOMED-CT: 386253678] Dr. Colleen Huang, DO 12-26-2017 Cat bite [SNOMED-CT: 418237997] Dr. Colleen Huang, DO 12-26-2017 DIABETES WITH RENAL MANIFESTATIONS TYPE II OR UNSPECIFIED TYPE NOT STATED UNCONTROLLED [SNOMED-CT: 788931270] Dr. Colleen Huang, DO 09-24-2017 DIABETES MELLITUS WITHOUT MENTION OF COM PLICATION [SNOMED-CT: 403368661] Celestine Huang, DO 09-24-2017 ROUTINE GENERAL MEDICAL EXAMINATION AT A HEALTH CARE FACILITY [SNOMED-CT: 456193175] Celestine Huang, DO 06-02-2017 DIABETES WITH RENAL MANIFESTATIONS TYPE II OR UNSPECIFIED TYPE NOT STATED UNCONTROLLED [SNOMED-CT: 090845886] Dr. Colleen Huang, DO 06-02-2017 Allergic contact dermatitis of male melissa isamar [SNOMED-CT: 872774299] Dr. Colleen Huang, DO 03-07-2017 Other genital problems [ICD10: R68.89] Dr. Colleen Huang, DO 03-07-2017 DIABETES WITH RENAL MANIFESTATIONS TYPE II OR UNSPECIFIED TYPE NOT STATED UNCONTROLLED [SNOMED-CT: 206793299] Dr. Colleen Huang, DO 03-07-2017 Back pain [SNOMED-CT: 989183787] Dr. Colleen Huang, DO 03-07-2017 LUMBAGO [SNOMED-CT: 196782936] Jose Angel Huang, DO 03-07-2017 Penile cellulitis/abscess/boil [SNOMED-CT: 898093505] Dr. Colleen Huang, DO 01-15-2017 DIABETES WITH RENAL MANIFESTATIONS TYPE II OR UNSPECIFIED TYPE NOT STATED UNCONTROLLED [SNOMED-CT: 296952303] Dr. Colleen Huang, DO 01-15-2017 Back pain [SNOMED-CT: 653064677] Dr. Colleen Huang, DO 11-06-2016 DIABETES WITH RENAL MANIFESTATIONS TYPE II OR UNSPECIFIED TYPE NOT STATED UNCONTROLLED [SNOMED-CT: 293590943] Dr. Colleen Huang, DO 11-06-2016 UNSPECIFIED ESSENTIAL HYPERTENSION [SNOMED-CT: 6624313 0] N/A N/A 11-06-2016 Bronchospasm [SNOMED-CT: 1563760] Dr Joe Huang, DO 09-04-2016 Back pain [SNOMED-CT: 885666082] Dr. Colleen Huang, DO 09-04-2016 Primary atypical interstitial pneumonia [SNOMED-CT: 35 477703] Dr. Colleen Huang, DO 09-04-2016 Back pain [SNOMED-CT: 514065421] Dr. Colleen Huang, DO 07-10-2016 DIABETES WITH RENAL MANIFESTATIONS TYPE II OR UNSPECIFIED TYPE NOT STATED UNCONTROLLED [SNOMED-CT: 531865089] Dr. Colleen Huang, DO 07-10-2016 Back pain [SNOMED-CT: 613384710] Dr. Colleen Huang, DO 05-15-2016 CHRONIC KIDNEY DISEASE STAGE II (MILD) [SNOMED-CT: 431 023602] Dr. Colleen Huang, DO 05-15-2016 DIABETES WITH RENAL MANIFESTATIONS TYPE II OR UNSPECIFIED TYPE NOT STATED UNCONTROLLED [SNOMED-CT: 964583688] Dr. Colleen Huang, DO 05-15-2016 LUMBAGO [SNOMED-CT: 857177599] Jose Angelberny Huang, DO 05-15-2016 Other specified vaccination [ICD10: Z23] Celestine Huang, DO 05-15-2016 Back pain [SNOMED-CT: 606642335] Dr. Colleen Huang, DO 03-18-2016 DIABETES WITH RENAL MANIFESTATIONS TYPE II OR UNSPECIFIED TYPE NOT STATED UNCONTROLLED [SNOMED-CT: 992932451] Dr. Colleen Huang, DO 03-18-2016 DIABETES WITH RENAL MANIFESTATIONS TYPE II OR UNSPECIFIED TYPE NOT STATED UNCONTROLLED [SNOMED-CT: 280900601] Dr. Colleen Huang, DO 01-22-2016 Exogenous hyperlipidemia [SNOMED-CT: 265914186] Dr. Colleen Huang, DO 01-22-2016 ANXIETY STATE UNSPECIFIED [SNOMED-CT: 565938409] Celestine Huang, DO 01-22-2016 DIABETES WITH RENAL MANIFESTATIONS TYPE II OR UNSPECIFIED TYPE NOT STATED UNCONTROLLED [SNOMED-CT: 057695752] Dr. Colleen Huang, DO 12-15-2015 Otitis externa [SNOMED-CT: 3735813] Celestine Huang, DO 12-15-2015 Impacted cerumen [SNOMED-CT: 26859084] Celestine Huang, DO 12-15-2015 DIABETES WITH RENAL MANIFESTATIONS TYPE II OR UNSPECIFIED TYPE NOT STATED UNCONTROLLED [SNOMED-CT: 010236221] Dr. Colleen Huang, DO 11-17-2015 Back pain [SNOMED-CT: 966635938] Dr. Colleen Huang, DO 11-17-2015 UNSPECIFIED SLEEP APNEA [SNOMED-CT: 40952430] Celestine Huang, DO 11-17-2015 UNSPECIFIED ESSENTIAL HYPERTENSION [SNOMED-CT: 6971798 0] N/A N/A 11-17-2015 ROUTINE GENERAL MEDICAL EXAMINATION AT A HEALTH CARE FACILITY [SNOMED-CT: 783030671] Celestine Huang, DO 09-27-2015 Back pain [SNOMED-CT: 899344584] Dr. Colleen Huang, DO 08-11-2015 Dysuria-frequency syndrome [SNOMED-CT: 4706823] Dr. Colleen Huang, DO 08-11-2015 LUMBAGO [SNOMED-CT: 417898742] Jose Angel Huang, DO 06-19-2015 CLOSED FRACTURE OF LUMBAR VERTEBRA WITHO UT SPINAL [SNOMED-CT: 93587768] Celestine Huang, DO 06-19-2015 DIABETES WITH RENAL MANIFESTATIONS TYPE II OR UNSPECIFIED TYPE NOT STATED UNCONTROLLED [SNOMED-CT: 214268474] Dr. Colleen Huang, DO 06-19-2015 DIABETES WITH RENAL MANIFESTATIONS TYPE II OR UNSPECIFIED TYPE NOT STATED UNCONTROLLED [SNOMED-CT: 559267744] Dr. Colleen Huang, DO 04-26-2015 Back pain [SNOMED-CT: 870079625] Dr. Colleen Huang, DO 04-26-2015 Other constipation [ICD9: 564.09] Dr Joe Huang, DO 01-18-2015 Back pain [SNOMED-CT: 645926596] Dr. Colleen Huang, DO 01-18-2015 DIABETES WITH RENAL MANIFESTATIONS TYPE II OR UNSPECIFIED TYPE NOT STATED UNCONTROLLED [SNOMED-CT: 049843638] Dr. Colleen Huang, DO 11-30-2014 CHRONIC KIDNEY DISEASE STAGE II (MILD) [SNOMED-CT: 431 787152] Dr. Colleen Huang, DO 11-30-2014 UNSPECIFIED ESSENTIAL HYPERTENSION [SNOMED-CT: 8055082 0] N/A N/A 11-30-2014 DIABETES WITH RENAL MANIFESTATIONS TYPE II OR UNSPECIFIED TYPE NOT STATED UNCONTROLLED [SNOMED-CT: 794754516] Dr. Colleen Huang, DO 10-19-2014 CHRONIC KIDNEY DISEASE STAGE II (MILD) [SNOMED-CT: 431 841254] Dr. Colleen Huang, DO 10-19-2014 DIABETES WITH RENAL MANIFESTATIONS TYPE II OR UNSPECIFIED TYPE NOT STATED UNCONTROLLED [SNOMED-CT: 945045119] Dr. Colleen Huang, DO 09-16-2014 DIABETES WITH RENAL MANIFESTATIONS TYPE II OR UNSPECIFIED TYPE NOT STATED UNCONTROLLED [SNOMED-CT: 370972858] Dr. Colleen Huang, DO 09-14-2014 CHRONIC KIDNEY DISEASE STAGE II (MILD) [SNOMED-CT: 431 837023] Dr. Colleen Huang, DO 09-14-2014 ROUTINE GENERAL MEDICAL EXAMINATION AT A HEALTH CARE FACILITY [SNOMED-CT: 907657183] Celestine Huang, DO 08-22-2014 Other specified vaccination [ICD10: Z23] Celestine Huang, DO 08-22-2014 DIABETES MELLITUS WITHOUT MENTION OF COM PLICATION [SNOMED-CT: 364518439] N/A N/A 05-09-2014 DIABETES MELLITUS WITHOUT MENTION OF COM PLICATION [SNOMED-CT: 860936253] Celestine Huang, DO 03-16-2014 Back pain [SNOMED-CT: 430872829] Dr. Colleen Huang, DO 03-16-2014 CONTACT DERMATITIS AND OTHER ECZEMA UNSP ECIFIED CA [SNOMED-CT: 661968643] N/A N/A 03-16-2014 UNSPECIFIED ESSENTIAL HYPERTENSION [SNOMED-CT: 2206975 0] N/A N/A 03-16-2014 DIABETES MELLITUS WITHOUT MENTION OF COM PLICATION [SNOMED-CT: 512997593] Celestine Huang, DO 11-05-2013 Back pain [SNOMED-CT: 480146475] Dr. Colleen Huang, DO 11-05-2013 CLOSED FRACTURE OF LUMBAR VERTEBRA WITHO UT SPINAL [SNOMED-CT: 28665104] Celestine Huang, DO 11-05-2013 ANXIETY STATE UNSPECIFIED [SNOMED-CT: 113553026] Celestine Huang, DO 11-05-2013 DIABETES MELLITUS WITHOUT MENTION OF COM PLICATION [SNOMED-CT: 238452318] Celestine Huang, DO 06-11-2013 UNSPECIFIED ESSENTIAL HYPERTENSION [SNOMED-CT: 2137471 0] N/A N/A 06-11-2013 INSOMNIA UNSPECIFIED [SNOMED-CT: 266007162] Dr. Colleen Huang, DO 06-09-2013 ANXIETY STATE UNSPECIFIED [SNOMED-CT: 738274953] Celestine Huang, DO 06-09-2013 DIABETES MELLITUS WITHOUT MENTION OF COM PLICATION [SNOMED-CT: 561155419] Celestine Huang, DO 02-17-2013 HYPERPLASIA OF PROSTATE UNSPECIFIED WITH OUT URINAR [SNOMED-CT: 241856530] Celestine Huang, DO 02-17-2013 CLOSED FRACTURE OF LUMBAR VERTEBRA WITHO UT SPINAL [SNOMED-CT: 87412013] Celestine Huang, DO 02-17-2013 UNSPECIFIED ESSENTIAL HYPERTENSION [SNOMED-CT: 0329915 0] N/A N/A 02-17-2013 ROUTINE GENERAL MEDICAL EXAMINATION AT A HEALTH CARE FACILITY [SNOMED-CT: 245965866] Celestine Huang, DO 11-02-2012 DIABETES MELLITUS WITHOUT MENTION OF COM PLICATION [SNOMED-CT: 745411229] Celestine Huang, DO 08-28-2012 LUMBAGO [SNOMED-CT: 747450325] Jose Angel Cornejo Pocahontas, DO 08-05-2012 DIABETES MELLITUS WITHOUT MENTION OF COM PLICATION [SNOMED-CT: 215579627] Celestine Huang, DO 08-05-2012 UNSPECIFIED ESSENTIAL HYPERTENSION [SNOMED-CT: 5874800 0] N/A N/A 08-05-2012 DIABETES MELLITUS WITHOUT MENTION OF COM PLICATION [SNOMED-CT: 830093845] Celestine Huang, DO 02-26-2012 LUMBAGO [SNOMED-CT: 533098464] Jose Angel Huang, DO 02-26-2012 UNSPECIFIED ESSENTIAL HYPERTENSION [SNOMED-CT: 7320239 0] N/A N/A 02-26-2012 DIABETES MELLITUS WITHOUT MENTION OF COM PLICATION [SNOMED-CT: 578028971] Celestine Huang, DO 10-23-2011 LUMBAGO [SNOMED-CT: 439154500] Jose Angel Huang, DO 10-23-2011 PAIN IN JOINT INVOLVING SHOULDER REGION [SNOMED-CT: 398194689] Celestine Huang, DO 08-21-2011 DIABETES MELLITUS WITHOUT MENTION OF COM PLICATION [SNOMED-CT: 886012395] Celestine Huang, DO 08-21-2011 HYPERPLASIA OF PROSTATE UNSPECIFIED WITH OUT URINAR [SNOMED-CT: 357912009] Celestine Huang, DO 08-21-2011 UNSPECIFIED ESSENTIAL HYPERTENSION [SNOMED-CT: 4215593 0] N/A N/A 08-21-2011 Other specified vaccination [ICD10: Z23] Celestine Huang, DO 08-21-2011 PAIN IN JOINT INVOLVING SHOULDER REGION [SNOMED-CT: 424420960] Celestine Huang, DO 06-19-2011 DIABETES MELLITUS WITHOUT MENTION OF COM PLICATION [SNOMED-CT: 730121132] Celestine Huang, DO 06-19-2011 HYPERPLASIA OF PROSTATE UNSPECIFIED WITH OUT URINAR [SNOMED-CT: 355145248] Celestine Reina Colleen Chantal Huang, DO 06-19-2011 UNSPECIFIED ESSENTIAL HYPERTENSION [SNOMED-CT: 9826872 0] N/A N/A 06-19-2011 Other specified vaccination [ICD10: Z23] Celestine Begumjoelle Macias Chantal Huang, DO 06-19-2011 PAIN IN JOINT INVOLVING SHOULDER REGION [SNOMED-CT: 441169482] Celestine Macias Chantal Reina, DO 03-08-2011 DIABETES MELLITUS WITHOUT MENTION OF COM PLICATION [SNOMED-CT: 851856572] Celestine Macias Chantal Huang, DO 03-08-2011 HYPERPLASIA OF PROSTATE UNSPECIFIED WITH OUT URINAR [SNOMED-CT: 141578253] Celestine Reina Cernacy Chantal Huang, DO 03-08-2011 UNSPECIFIED ESSENTIAL HYPERTENSION [SNOMED-CT: 8132797 0] N/A N/A 03-08-2011 PAIN IN JOINT INVOLVING SHOULDER REGION [SNOMED-CT: 572005317] Celestine Macias Chantal Reina, DO 12-26-2010 DIABETES MELLITUS WITHOUT MENTION OF COM PLICATION [SNOMED-CT: 010693376] Celestine Macias Chantal Huang, DO 12-26-2010 HYPERPLASIA OF PROSTATE UNSPECIFIED WITH OUT URINAR [SNOMED-CT: 673256232] Celestine Pocahontas Colleen Chantal Huang, DO 12-26-2010 UNSPECIFIED ESSENTIAL HYPERTENSION [SNOMED-CT: 1338743 0] N/A N/A 12-26-2010 Back pain [SNOMED-CT: 268270773] Dr. Colleen Macias Chantal Reina, DO 12-14-2010 CLOSED FRACTURE OF LUMBAR VERTEBRA WITHO UT SPINAL [SNOMED-CT: 38600242] Celestine Huang, DO 12-14-2010 DIABETES MELLITUS WITHOUT MENTION OF COM PLICATION [SNOMED-CT: 733717680] Celestine Macias Chantal Reina, DO 09-24-2010 CLOSED FRACTURE OF LUMBAR VERTEBRA WITHO UT SPINAL [SNOMED-CT: 32254657] Celestine Huang, DO 09-24-2010 UNSPECIFIED ESSENTIAL HYPERTENSION [SNOMED-CT: 7141697 0] N/A N/A 09-24-2010 DIABETES MELLITUS WITHOUT MENTION OF COM PLICATION [SNOMED-CT: 744337876] Celestine Huang, DO 08-29-2010 CLOSED FRACTURE OF LUMBAR VERTEBRA WITHO UT SPINAL [SNOMED-CT: 54896603] Celestine Huang, DO 08-29-2010 UNSPECIFIED ESSENTIAL HYPERTENSION [SNOMED-CT: 2544657 0] N/A N/A 08-29-2010 DIABETES MELLITUS WITHOUT MENTION OF COM PLICATION [SNOMED-CT: 953991276] Celestine Huang, DO 06-27-2010 CLOSED FRACTURE OF LUMBAR VERTEBRA WITHO UT SPINAL [SNOMED-CT: 10585021] Celestine Huang, DO 06-27-2010 UNSPECIFIED ESSENTIAL HYPERTENSION [SNOMED-CT: 5684428 0] N/A N/A 06-27-2010 CLOSED FRACTURE OF LUMBAR VERTEBRA WITHO UT SPINAL [SNOMED-CT: 91135159] Celestine Huang, DO 06-13-2010 DIABETES MELLITUS WITHOUT MENTION OF COM PLICATION [SNOMED-CT: 608422548] Celestine Huang, DO 03-23-2010 IMPOTENCE OF ORGANIC ORIGIN [SNOMED-CT: 839366123] N/A N/A 03-23-2010 UNSPECIFIED ESSENTIAL HYPERTENSION [SNOMED-CT: 7743915 0] N/A N/A 03-23-2010 UNSPECIFIED CATARACT [SNOMED-CT: 386413890] Celestine Huang, DO 01-26-2010 DIABETES MELLITUS WITHOUT MENTION OF COM PLICATION [SNOMED-CT: 879204108] Celestine Huang, DO 01-26-2010 UNSPECIFIED SLEEP APNEA [SNOMED-CT: 10196678] Celestine Huang, DO 01-26-2010 UNSPECIFIED ESSENTIAL HYPERTENSION [SNOMED-CT: 5354251 0] N/A N/A 01-26-2010 UNSPECIFIED DISORDER OF SKIN AND SUBCUTA NEOUS TISS [SNOMED-CT: 27708335] Celestine Huang, DO 01-26-2010 IMPOTENCE OF ORGANIC ORIGIN [SNOMED-CT: 444419412] N/A N/A 01-26-2010 DIABETES MELLITUS WITHOUT MENTION OF COM PLICATION [SNOMED-CT: 153918126] Celestine Huang, DO 12-20-2009 UNSPECIFIED ESSENTIAL HYPERTENSION [SNOMED-CT: 5155108 0] N/A N/A 12-20-2009 HYPERPLASIA OF PROSTATE UNSPECIFIED WITH OUT URINAR [SNOMED-CT: 058077947] Celestine Huang, DO 12-20-2009 UNSPECIFIED DISORDER OF SKIN AND SUBCUTA NEOUS TISS [SNOMED-CT: 26944906] Celestine Huang, DO 12-20-2009 IMPOTENCE OF ORGANIC ORIGIN [SNOMED-CT: 482851378] N/A N/A 12-20-2009 DIABETES MELLITUS WITHOUT MENTION OF COM PLICATION [SNOMED-CT: 828580983] N/A N/A 09-18-2009 UNSPECIFIED ESSENTIAL HYPERTENSION [SNOMED-CT: 0749584 0] N/A N/A 09-18-2009 IMPOTENCE OF ORGANIC ORIGIN [SNOMED-CT: 092764632] N/A N/A 09-18-2009 DIABETES MELLITUS WITHOUT MENTION OF COM PLICATION [SNOMED-CT: 506260973] N/A N/A 06-28-2009 DIABETES MELLITUS WITHOUT MENTION OF COM PLICATION [SNOMED-CT: 891972024] N/A N/A 06-16-2009 UNSPECIFIED ESSENTIAL HYPERTENSION [SNOMED-CT: 1531578 0] N/A N/A 06-16-2009 CONTACT DERMATITIS AND OTHER ECZEMA UNSP ECIFIED CA [SNOMED-CT: 873033071] N/A N/A 06-16-2009 ALLERGIES AND ADVERSE REACTIONS [...] Generic Name Instructions Dosage Start Date Status hydrOXYzine hydrochloride 25 mg oral tablet, [RxNorm: 821901] hydrOXYzine one po bid prn and two po at hs 60 08/15/2020 Active atorvastatin 10 mg oral tablet, [RxNorm: 187207] atorvastatin one po hs daily 0 08/14/2020 Active metFORMIN 500 mg oral tablet, [RxNorm: 067449] metFORMIN one po bid 08/14/2020 Active HumaLOG 100 units/mL injectable solution, [RxNorm: 865 098] insulin lispro 6 units this am for sugar of 220....he h as a sliding scale 0 08/14/2020 Active Diflucan 150 mg oral tablet, [RxNorm: 265723] fluconazole one po now and repeat in 5 days 2 05/30/2020 Active Lotrisone 1%-0.05% topical cream, [RxNorm: 379552] clotrimazole-betamethasone dipropionate topic use as directed apply to genital area bid 30 05/30/2020 Active sertraline 100 mg oral tablet, [RxNorm: 609404] sertraline two po daily 180 019 Active lisinopril 10 mg oral tablet, [RxNorm: 044725] lisinopril one po daily 90 08/13/20 19 Active Linzess 145 mcg oral capsule, [RxNorm: 5291310] linaclotide one po daily prn constipation 90 08/13/2019 Active BD Pen Needle Mini U/F Unknown use as directed for lantus injection 200 2018 Active ibuprofen 800 mg oral tablet, [RxNorm: 319642] ibuprofen one po tid with food 90 06/23/2019 Active Lantus Solostar Pen 100 units/mL subcuta neous solution, [RxNorm: 170314] insulin glargine 14 units sq daily 15 12/18/2018 Active ProAir HFA 90 mcg/inh inhalation aerosol, [RxNorm: 745 752] albuterol two puffs qid prn wheeze 0 06/02/2017 Active Cortisporin-TC otic suspension, [RxNorm: 372273] colistin/neomycin/thonzonium/HC otic 4 gtts into left EAC bid 5 12/15/2015 Active aspirin 81 mg oral tablet, [RxNorm: 128081] aspirin one daily 1 11/17/2015 Active INSURANCE PROVIDERS Payer Name Policy Type P olicy ID Covered Democrat ID Policy [employer] Health Insurance [id number] ESTRELLA CABALLERO [facility] 20 [id number] THIAGO MENDOZA ASSESSMENTS # Acute pancreatitis (K85.90): resolving# Type II diabetes mellitus poorly controlled (E11.65):# Generalised itching (L29.9): resolved# Thyroiditis (E06.9):# Chronic kidney disease (N18.9): PROBLEMS Problem Problem Status D ate Started Date Resolved Date Inactivated CLOSED FRACTURE OF LUMBAR VERTEBRA WITHO UT SPINAL [SNOMED-CT: 90724256] Active 06-13-2010 NA NA Type II diabetes mellitus poorly control led [SNOMED-CT: 963016298] Active 03-22-2020 NA NA Allergic contact dermatitis of male melissa isamar [SNOMED-CT: 882801220] Active 03-07-2017 NA NA Other genital problems [ICD10: R68.89] Active 03-07-2017 NA NA ROUTINE GENERAL MEDICAL EXAMINATION AT A HEALTH CARE FACILITY [SNOMED-CT: 493192380] Active 11-02-2012 NA NA Other specified vaccination [ICD10: Z23] Active 05-15-2016 NA NA DIABETES MELLITUS WITHOUT MENTION OF COM PLICATION [SNOMED-CT: 748722035] Active 12-20-2009 NA NA HYPERPLASIA OF PROSTATE UNSPECIFIED WITH OUT URINAR [SNOMED-CT: 155730028] Active 12-20-2009 NA NA UNSPECIFIED DISORDER OF SKIN AND SUBCUTA NEOUS TISS [SNOMED-CT: 55485784] Active 12-20-2009 NA NA Balanitis [SNOMED-CT: 13540862] Active 05-30-2020 NA NA Bronchospasm [SNOMED-CT: 7487029] Active 09-04-2016 NA NA Generalised itching [SNOMED-CT: 333182574] Active 08-15-2020 NA NA Other hyperlipidemia [ICD10: E78.49] Activ e 07-20-2018 NA NA Penile cellulitis/abscess/boil [SNOMED-CT: 731198418] Active 01-15-2017 NA NA Other constipation [ICD9: 564.09] Active 01-18-2015 NA NA UNSPECIFIED CATARACT [SNOMED-CT: 538023339] Active 01-26-2010 NA NA UNSPECIFIED SLEEP APNEA [SNOMED-CT: 74440771] Active 01-26-2010 NA NA Chronic kidney disease [SNOMED-CT: 929910282] Active 08-23-2020 NA NA Acute pancreatitis [SNOMED-CT: 709827226] Active 08-14-2020 NA NA Contusion of lower back and pelvis, init ial encounter [ICD10: S30.0XXA] Active 12-14-2018 NA NA Exogenous hyperlipidemia [SNOMED-CT: 054561410] Active 09-27-2015 NA NA Otitis externa [SNOMED-CT: 1791365] Active 12-15-2015 NA NA Impacted cerumen [SNOMED-CT: 10260242] Active 12-15-2015 NA NA INSOMNIA UNSPECIFIED [SNOMED-CT: 107270887] Active 06-09-2013 NA NA ANXIETY STATE UNSPECIFIED [SNOMED-CT: 994017796] Active 06-09-2013 NA NA NEED FOR PROPHYLACTIC VACCINATION AND IN OCULATION AGAINST INFLUENZA [SNOMED-CT: 828793669] Active 06-19-2011 NA NA Primary atypical interstitial pneumonia [SNOMED-CT: 35 222988] Active 09-04-2016 NA NA Viral gastroenteritis [SNOMED-CT: 209448775] Active 12-26-2017 NA NA Cat bite - wound [SNOMED-CT: 808953914] Active 12-26-2017 NA NA Cat bite [SNOMED-CT: 316563301] Active 12-26-2017 NA NA Cat bite [SNOMED-CT: 518196395] Active 12-26-2017 NA NA BACKACHE UNSPECIFIED [SNOMED-CT: 455999220] Active 12-14-2010 NA NA PAIN IN JOINT INVOLVING SHOULDER REGION [SNOMED-CT: 947501707] Active 12-26-2010 NA NA DIABETES MELLITUS WITHOUT MENTION OF COM PLICATION [SNOMED-CT: 874962339] Active 05-19-2009 NA NA UNSPECIFIED ESSENTIAL HYPERTENSION [SNOMED-CT: 1719061 0] Active 05-19-2009 NA NA CONTACT DERMATITIS AND OTHER ECZEMA UNSP ECIFIED CA [SNOMED-CT: 394327513] Active 05-19-2009 NA NA Acute rhinosinusitis [SNOMED-CT: 620488813] Active 09-08-2019 NA NA Upper respiratory infection [SNOMED-CT: 91893989] Active 09-08-2019 NA NA LUMBAGO [SNOMED-CT: 428583105] Active 10-23-2011 NA NA SPRAIN OF UNSPECIFIED SITE OF SHOULDER A ND UPPER A [SNOMED-CT: 042912881] Active 06-28-2009 NA NA Back pain [SNOMED-CT: 697394104] Active 08-11-2015 NA NA Dysuria-frequency syndrome [SNOMED-CT: 9440100] Active 08-11-2015 NA NA Thyroiditis [SNOMED-CT: 37444249] Active 08-23-2020 NA NA Arthropathy of left shoulder [SNOMED-CT: 8590615059331 9103] Active 06-03-2018 NA NA Pain in left foot [SNOMED-CT: 764888237674026] Active 06-18-2019 NA NA DIABETES WITH RENAL MANIFESTATIONS TYPE II OR UNSPECIFIED TYPE NOT STATED UNCONTROLLED [SNOMED-CT: 604274994] Active 09-14-2014 NA NA CHRONIC KIDNEY DISEASE STAGE II (MILD) [SNOMED-CT: 431 136378] Active 09-14-2014 NA NA IMPOTENCE OF ORGANIC ORIGIN [SNOMED-CT: 561289614] Active 09-18-2009 NA NA PROCEDURES Procedure Date CPT Code Procedure 08/23/2020 09:37:34 [id number] Telephone evaluation and management service by a physician or other qualified health manager managed care who may report evaluation and management services provided to an established patient, parent, or guardian not originating from a related E/M service provided within the previous 7 days nor leading to an E/M service or procedure within the next 24 hours or soonest available appointment; 5-10 minutes of medical discussion 08/15/2020 08:57:07 [id number] Office or other outpatient visit for the [...] moderate severity. Physicians typically spend 15 minutes [id number] with the patient and/or family. 08/14/2020 09:42:50 [id number] Transitional Care Management Services with the following required elements: Communication (direct contact, telephone, electronic) with the patient and/or caregiver within 2 business days of discharge Medical decision making of high complexity during the service period [id number] visit, within 7 calendar days of discharge 08/14/2020 09:42:50 [id number] Eligible clinician attests to documenting in the medical record they obtained, updated, or reviewed the patient's current medications 05/30/2020 13:09:49 16830 Office or other outpatient visit for the [...] moderate severity. Physicians typically spend 15 minutes jxlj-hd-bjfz with the patient and/or family. 03/22/2020 09:10:00 09889 Office or other outpatient visit for the [...] moderate severity. Physicians typically spend 15 minutes geeo-cr-yuoy with the patient and/or family. 03/15/2020 12:24:05 80951 Office or other outpatient visit for the evaluation and management of an established patient, that may not require the presence of a physician. Usually, the presenting problem(s) are minimal. Typically, 5 minutes are spent performing or supervising these services. 03/15/2020 12:24:05 33647 Hemoglobin; glycosylated (A1C) by device cleared by FDA for home use 03/15/2020 12:24:05 3046F Most recent hemoglobin A1c level greater than 9.0% (DM) 09/08/2019 08:19:29 00009 Office or other outpatient visit for the [...] high severity. Physicians typically spend 25 minutes hssk-ly-rdnd with the patient and/or family. 09/08/2019 08:19:29 90008 Hemoglobin; glycosylated (A1C) by device cleared by FDA for home use 09/08/2019 08:19:29 3045F Most recent hemoglobin A1c (HbA1c) level 7.0-9.0% (DM) 08/13/2019 13:55:58 G0439 ANNUAL WELLNESS VISIT, SUBSEQUENT 08/13/2019 13:55:58 05669 Hemoglobin; glycosylated (A1C) by device cleared by FDA for home use 08/13/2019 13:55:58 91065 Influenza virus vaccine, quadrivalent (ccIIV4), derived from cell cultures, subunit, preservative and antibiotic free, 0.5 mL dosage, for intramuscular use 08/13/2019 13:55:58 G0008 ADMINISTRATION OF FLU VACCINE (V04.81) 08/13/2019 13:55:58 Dilated retinal eye exam with interpretation by an industrial photographer or cut out operator documented and reviewed (DM) 08/13/2019 13:55:58 G8427 Eligible clinician attests to documenting in the medical record they obtained, updated, or reviewed the patient's current medications 08/13/2019 13:55:58 3017F Colorectal cancer screening results documented and reviewed (PV) 08/13/2019 13:55:58 1036F Current tobacco non-user (CAD, CAP, COPD, PV) (DM) (IBD) 06/18/2019 09:23:34 96433 Office or other outpatient visit for the [...] high severity. Physicians typically spend 25 minutes czpu-wy-yjzx with the patient and/or family. 06/18/2019 09:23:34 72451 Hemoglobin; glycosylated (A1C) by device cleared by FDA for home use 06/18/2019 09:23:34 3045F Most recent hemoglobin A1c (HbA1c) level 7.0-9.0% (DM) 03/24/2019 08:14:04 50376 Office or other outpatient visit for the [...] high severity. Physicians typically spend 25 minutes tadp-uc-rqlr with the patient and/or family. 03/24/2019 08:14:04 31330 Hemoglobin; glycosylated (A1C) by device cleared by FDA for home use 03/24/2019 08:14:04 3045F Most recent hemoglobin A1c (HbA1c) level 7.0-9.0% (DM) 03/24/2019 08:14:04 G8427 Eligible clinician attests to documenting in the medical record they obtained, updated, or reviewed the patient's current medications 03/23/2019 11:45:37 3017F Colorectal cancer screening results documented and reviewed (PV) 12/14/2018 08:01:40 65222 Office or other outpatient visit for the [...] high severity. Physicians typically spend 25 minutes aftz-sm-kgrg with the patient and/or family. 12/14/2018 08:01:40 12289 Collection of venous blood by venipuncture 12/14/2018 08:01:40 65044 Hemoglobin; glycosylated (A1C) by device cleared by FDA for home use 12/14/2018 08:01:40 3046F Most recent hemoglobin A1c level greater than 9.0% (DM) 12/14/2018 08:01:40 G8427 Eligible clinician attests to documenting in the medical record they obtained, updated, or reviewed the patient's current medications 09/07/2018 08:17:34 86769 Office or other outpatient visit for the evaluation and management of an established patient, that may not require the presence of a physician. Usually, the presenting problem(s) are minimal. Typically, 5 minutes are spent performing or supervising these services. 09/07/2018 08:17:34 83730 Hemoglobin; glycosylated (A1C) by device cleared by FDA for home use 09/07/2018 08:17:34 3044F Most recent hemoglobin A1c (HbA1c) level less than 7.0% (DM) 07/20/2018 13:54:05 99845 Periodic comprehensive preventive medicine reevaluation and management of an individual including an age and gender appropriate history, examination, counseling/anticipatory guidance/risk factor reduction interventions, and the ordering of laboratory/diagnostic procedures, established patient; 65 years and older 07/20/2018 13:54:05 52184 Hemoglobin; glycosylated (A1C) by device cleared by FDA for home use 07/20/2018 13:54:05 G8427 Eligible clinician attests to documenting in the medical record they obtained, updated, or reviewed the patient's current medications 07/20/2018 13:54:05 1036F Current tobacco non-user (CAD, CAP, COPD, PV) (DM) (IBD) 07/20/2018 13:54:05 3044F Most recent hemoglobin A1c (HbA1c) level less than 7.0% (DM) 06/03/2018 08:23:02 41942 Office or other outpatient visit for the [...] high severity. Physicians typically spend 25 minutes tllq-vb-lzlp with the patient and/or family. 06/03/2018 08:23:02 59500 Hemoglobin; glycosylated (A1C) by device cleared by FDA for home use 06/03/2018 08:23:02 3045F Most recent hemoglobin A1c (HbA1c) level 7.0-9.0% (DM) 03/27/2018 08:56:44 47239 Office or other outpatient visit for the [...] moderate severity. Physicians typically spend 15 minutes dlau-bm-twax with the patient and/or family. 03/27/2018 08:56:44 3045F Most recent hemoglobin A1c (HbA1c) level 7.0-9.0% (DM) 03/27/2018 08:56:44 87966 Hemoglobin; glycosylated (A1C) by device cleared by FDA for home use 03/27/2018 08:56:44 G8427 Eligible clinician attests to documenting in the medical record they obtained, updated, or reviewed the patient's current medications 12/26/2017 08:55:27 02441 Office or other outpatient visit for the [...] high severity. Physicians typically spend 25 minutes crch-hg-unyy with the patient and/or family. 12/26/2017 08:55:27 3045F Most recent hemoglobin A1c (HbA1c) level 7.0-9.0% (DM) 12/26/2017 08:55:27 39044 Hemoglobin; glycosylated (A1C) by device cleared by FDA for home use 12/26/2017 08:55:27 1036F Current tobacco non-user (CAD, CAP, COPD, PV) (DM) (IBD) 12/26/2017 08:55:27 G8427 Eligible clinician attests to documenting in the medical record they obtained, updated, or reviewed the patient's current medications 12/26/2017 08:55:27 2 Dilated retinal eye exam with interpretation by an industrial photographer or cut out operator documented and reviewed (DM) 09/24/2017 08:27:29 14997 Office or other outpatient visit for the [...] high severity. Physicians typically spend 25 minutes npha-ig-hrfn with the patient and/or family. 09/24/2017 08:27:29 63496 Hemoglobin; glycosylated (A1C) by device cleared by FDA for home use 09/24/2017 08:27:29 3045F Most recent hemoglobin A1c (HbA1c) level 7.0-9.0% (DM) 09/24/2017 08:27:29 1036F Current tobacco non-user (CAD, CAP, COPD, PV) (DM) (IBD) 06/02/2017 08:22:37 85012 Periodic comprehensive preventive medicine reevaluation and management [...] CAP, COPD, PV) (DM) (IBD) 06/02/2017 08:22:37 53414 Hemoglobin; glycosylated (A1C) by device cleared by FDA for home use 03/07/2017 09:18:02 43650 Office or other outpatient visit for the [...] high severity. Physicians typically spend 25 minutes lxqn-zm-jmaz with the patient and/or family. 03/07/2017 09:18:02 71384 Hemoglobin; glycosylated (A1C) by device cleared by FDA for home use 01/15/2017 08:13:41 42943 Office or other outpatient visit for the [...] high severity. Physicians typically spend 25 minutes pzld-ej-zmhj with the patient and/or family. 11/11/2016 09:37:13 33685 Hemoglobin; glycosylated (A1C) by device cleared by FDA for home use 11/06/2016 08:26:32 62170 Office or other outpatient visit for the [...] moderate severity. Physicians typically spend 15 minutes elhq-wr-csvl with the patient and/or family. 09/04/2016 09:23:52 95553 Office or other outpatient visit for the [...] moderate severity. Physicians typically spend 15 minutes nnwp-xy-fnjr with the patient and/or family. 07/10/2016 08:21:01 58809 Office or other outpatient visit for the [...] high severity. Physicians typically spend 25 minutes gmvx-zc-mdfs with the patient and/or family. 07/10/2016 08:21:01 41056 Hemoglobin; glycosylated (A1C) by device cleared by FDA for home use 05/15/2016 08:27:09 59027 Office or other outpatient visit for the [...] moderate severity. Physicians typically spend 15 minutes vzyw-bp-mdes with the patient and/or family. 05/15/2016 08:27:09 92465 Hemoglobin; glycosylated (A1C) by device cleared by FDA for home use 05/15/2016 08:27:09 G0008 ADMINISTRATION OF FLU VACCINE (V04.81) 05/15/2016 08:27:09 Q2037 FLUVRIN 03/18/2016 08:09:18 42089 Office or other outpatient visit for the [...] high severity. Physicians typically spend 25 minutes xesd-ec-fuja with the patient and/or family. 01/22/2016 08:23:52 45454 Collection of venous blood by venipuncture 01/22/2016 08:23:52 81670 Office or other outpatient visit for the [...] high severity. Physicians typically spend 25 minutes dtye-bp-hunc with the patient and/or family. 12/15/2015 12:17:35 24257 Removal impacted cerumen (separate procedure), 1 or both ears 12/15/2015 12:17:35 50987 Office or other outpatient visit for the [...] moderate severity. Physicians typically spend 15 minutes xcwa-ts-efca with the patient and/or family. 11/17/2015 08:15:21 39847 Collection of venous blood by venipuncture 11/17/2015 08:15:21 88238 Office or other outpatient visit for the [...] high severity. Physicians typically spend 40 minutes noxq-od-ftrm with the patient and/or family. 11/17/2015 08:15:21 36814 Hemoglobin; glycosylated (A1C) by device cleared by FDA for home use 09/27/2015 08:29:20 57284 Periodic comprehensive preventive medicine reevaluation and management of an individual including an age and gender appropriate history, examination, counseling/anticipatory guidance/risk factor reduction interventions, and the ordering of laboratory/diagnostic procedures, established patient; 40-64 years 09/27/2015 08:29:20 03095 Collection of venous blood by venipuncture 09/27/2015 08:29:20 53059 Hemoglobin; glycosylated (A1C) by device cleared by FDA for home use 08/11/2015 08:14:29 33954 Office or other outpatient visit for the [...] moderate severity. Physicians typically spend 15 minutes rgjr-vc-dtch with the patient and/or family. 06/19/2015 08:27:11 13105 Office or other outpatient visit for the [...] moderate severity. Physicians typically spend 15 minutes ohis-yu-xqoi with the patient and/or family. 04/26/2015 08:20:21 52925 Office or other outpatient visit for the [...] moderate severity. Physicians typically spend 15 minutes solb-mf-dbtg with the patient and/or family. 04/26/2015 08:20:21 77368 Hemoglobin; glycosylated (A1C) by device cleared by FDA for home use 01/18/2015 08:11:52 28646 Office or other outpatient visit for the [...] moderate severity. Physicians typically spend 15 minutes sbwq-hc-muas with the patient and/or family. 11/30/2014 08:15:54 15529 Office or other outpatient visit for the [...] high severity. Physicians typically spend 25 minutes fnbb-xf-feje with the patient and/or family. 11/30/2014 08:15:54 51997 Collection of venous blood by venipuncture 11/30/2014 08:15:54 32040 Hemoglobin; glycosylated (A1C) by device cleared by FDA for home use 10/19/2014 00:00:00 16331 Collection of venous blood by venipuncture 10/19/2014 00:00:00 07061 Office or other outpatient visit for the evaluation and management of an established patient, which requires at least 2 of these 3 carilsle components: An expanded problem focused history; An expanded problem focused examination; Medical decision making of low complexity. Counseling and coordination of care with other providers or agencies are provided consistent with the nature of the problem(s) and the patient's and/or family's needs. Usually, the presenting problem(s) are of low to moderate severity. Physicians typically spend 15 minutes oanu-gc-lzyp with the patient and/or family. 09/16/2014 00:00:00 77466 Office or other outpatient visit for the [...] moderate severity. Physicians typically spend 15 minutes rzcz-ay-nmah with the patient and/or family. 09/14/2014 00:00:00 43530 Office or other outpatient visit for the [...] moderate severity. Physicians typically spend 15 minutes ntpt-nr-ddjl with the patient and/or family. 08/22/2014 15:40:11 67794 INFLUENZA VACCINATION 08/22/2014 15:40:11 24705 Periodic comprehensive preventive medicine reevaluation and management of an individual including an age and gender appropriate history, examination, counseling/anticipatory guidance/risk factor reduction interventions, and the ordering of laboratory/diagnostic procedures, established patient; 40-64 years 08/22/2014 15:40:11 40196 Collection of venous blood by venipuncture 08/22/2014 15:40:11 Q2037 FLUVRIN 05/09/2014 00:00:00 96836 Office or other outpatient visit for the [...] moderate severity. Physicians typically spend 15 minutes jloo-sh-edab with the patient and/or family. 05/09/2014 00:00:00 80411 Hemoglobin; glycosylated (A1C) by device cleared by FDA for home use 03/16/2014 00:00:00 12694 Office or other outpatient visit for the [...] high severity. Physicians typically spend 25 minutes xcqb-og-xarm with the patient and/or family. 03/16/2014 00:00:00 66222 Hemoglobin; glycosylated (A1C) by device cleared by FDA for home use 11/05/2013 00:00:00 27725 Office or other outpatient visit for the [...] moderate severity. Physicians typically spend 15 minutes rhte-mv-kozn with the patient and/or family. 11/05/2013 00:00:00 34241 Collection of venous blood by venipuncture 11/05/2013 00:00:00 02719 Hemoglobin; glycosylated (A1C) by device cleared by FDA for home use 06/11/2013 00:00:00 78529 Periodic comprehensive preventive medicine reevaluation and management of an individual including an age and gender appropriate history, examination, counseling/anticipatory guidance/risk factor reduction interventions, and the ordering of laboratory/diagnostic procedures, established patient; 40-64 years 06/11/2013 00:00:00 61922 Hemoglobin; glycosylated (A1C) by device cleared by FDA for home use 06/09/2013 08:31:54 34418 Office or other outpatient visit for the [...] moderate severity. Physicians typically spend 15 minutes tgzl-bs-cquj with the patient and/or family. 02/17/2013 08:29:32 75996 Office or other outpatient visit for the [...] moderate severity. Physicians typically spend 15 minutes zubk-nd-uimv with the patient and/or family. 02/17/2013 08:29:32 01575 Collection of venous blood by venipuncture 02/17/2013 08:29:32 30142 Hemoglobin; glycosylated (A1C) by device cleared by FDA for home use 11/02/2012 08:13:33 92656 Periodic comprehensive preventive medicine reevaluation and management of an individual including an age and gender appropriate history, examination, counseling/anticipatory guidance/risk factor reduction interventions, and the ordering of laboratory/diagnostic procedures, established patient; 40-64 years 11/02/2012 08:13:33 19780 Hemoglobin; glycosylated (A1C) by device cleared by FDA for home use 08/28/2012 08:54:25 48067 Office or other outpatient visit for the [...] moderate severity. Physicians typically spend 15 minutes soho-zj-hljs with the patient and/or family. 08/05/2012 11:43:02 32387 Office or other outpatient visit for the [...] moderate severity. Physicians typically spend 15 minutes tgot-io-cskn with the patient and/or family. 08/05/2012 11:43:02 68107 Hemoglobin; glycosylated (A1C) by device cleared by FDA for home use 02/26/2012 08:27:00 23748 Collection of venous blood by venipuncture 02/26/2012 08:27:00 19711 Office or other outpatient visit for the [...] high severity. Physicians typically spend 25 minutes vcrf-rr-qxdj with the patient and/or family. 10/23/2011 08:31:03 74391 Office or other outpatient visit for the [...] moderate severity. Physicians typically spend 15 minutes okaq-qq-apxp with the patient and/or family. 10/23/2011 08:31:03 40316 Hemoglobin; glycosylated (A1C) by device cleared by FDA for home use 08/21/2011 08:26:48 21167 Collection of venous blood by venipuncture 08/21/2011 08:26:48 58760 Office or other outpatient visit for the [...] moderate severity. Physicians typically spend 15 minutes oxpu-sa-gbjr with the patient and/or family. 06/19/2011 08:43:09 37541 INFLUENZA VACCINATION 06/19/2011 08:43:09 55944 Collection of venous blood by venipuncture 06/19/2011 08:43:09 80055 Immunization administration (includes percutaneous, intradermal, subcutaneous, or intramuscular injections); one vaccine (single or combination vaccine/toxoid) 06/19/2011 08:43:09 95268 Office or other outpatient visit for the [...] high severity. Physicians typically spend 25 minutes sfau-re-ndgy with the patient and/or family. 03/08/2011 08:41:01 54086 Office or other outpatient visit for the [...] high severity. Physicians typically spend 25 minutes sikj-ya-ciim with the patient and/or family. 12/26/2010 08:18:16 89941 Collection of venous blood by venipuncture 12/26/2010 08:18:16 43865 Office or other outpatient visit for the [...] moderate severity. Physicians typically spend 15 minutes csds-ln-hxms with the patient and/or family. 12/14/2010 08:19:33 92222 Office or other outpatient visit for the [...] high severity. Physicians typically spend 25 minutes gpgk-dl-dpwi with the patient and/or family. 09/24/2010 08:30:35 46653 Office or other outpatient visit for the [...] high severity. Physicians typically spend 25 minutes bihg-il-avia with the patient and/or family. 08/29/2010 00:00:00 99479 Office or other outpatient visit for the [...] high severity. Physicians typically spend 25 minutes yane-gy-wewl with the patient and/or family. 06/27/2010 00:00:00 09577 Office or other outpatient visit for the [...] high severity. Physicians typically spend 25 minutes ahxs-po-nfyg with the patient and/or family. 06/27/2010 00:00:00 G8553 AT [employer]AST[employer] PRESCRIPTION CREATED DURING THE ENCOUNTER WAS GENERATED AND TRANSMITTED ELECTRONICALLY USING A QUALIFIED [employer] SYSTEM 06/27/2010 00:00:00 84909 Collection of venous blood by venipuncture 06/13/2010 00:00:00 53218 Office or other outpatient visit for the [...] moderate severity. Physicians typically spend 15 minutes tcfw-jy-ehcp with the patient and/or family. 03/23/2010 00:00:00 05184 Office or other outpatient visit for the [...] high severity. Physicians typically spend 25 minutes akca-rs-jtjs with the patient and/or family. 03/23/2010 00:00:00 49261 Collection of venous blood by venipuncture 01/26/2010 00:00:00 10346 Office or other outpatient visit for the [...] high severity. Physicians typically spend 25 minutes ciko-av-vudz with the patient and/or family. 12/20/2009 00:00:00 12425 Collection of venous blood by venipuncture 12/20/2009 00:00:00 33004 Office or other outpatient visit for the [...] moderate severity. Physicians typically spend 15 minutes mzmx-ov-ewng with the patient and/or family. 09/18/2009 00:00:00 43045 Office or other outpatient visit for the [...] high severity. Physicians typically spend 25 minutes kpxw-lk-stul with the patient and/or family. 09/18/2009 00:00:00 65571 Collection of venous blood by venipuncture 06/28/2009 00:00:00 18390 Office or other outpatient visit for the [...] high severity. Physicians typically spend 25 minutes orqn-ue-sxbl with the patient and/or family. 06/16/2009 00:00:00 27675 Office or other outpatient visit for the [...] high severity. Physicians typically spend 25 minutes lvco-mp-ncal with the patient and/or family. 06/16/2009 00:00:00 73494 Blood, occult, by peroxidase activity (eg, guaiac), qualitative; feces, consecutive collected specimens with single determination, for colorectal neoplasm screening (ie, patient was provided 3 cards or single triple card for consecutive collection) 06/16/2009 00:00:00 08999 Collection of venous blood by venipuncture -- 62793 Collection of v enous blood by venipuncture REASON FOR REFERRAL No Reason for Referral information available. 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 : 1950 Requested By: Jung Sofia Order Number: [id number] Reading MD: Shira Otero Measurements Intervals [place] Rate: 77 P: 68 RI: 152 QRS: -30 QRSD: 100 T: 44 QT: 384 QTc: 437 Interpretive Statements SINUS RHYTHM BORDERLINE LEFT AXIS DEVIATION LOW VOLTAGE LIMB NSTTW ABNORMALITY NO PRIOR FOR COMPARISON Electronically Signed On 04-21-2016 20:05:36 EDT by Shira Otero DD: PEDRO 04/20/2016 1312 DT: EPIPHANY 04/21/20162004 DS: PEDRO 04/21/20162004 The Following Link and Pin can be used to access images associated with this report: [email or web address] N/A N/A 04/20/2016 13:07:00 HEMOGLOBIN A1c [...] Observed Smoking Status Former smoker, [SNOME D-CT: [id number]], 75.00 pk yrs/20.00 yrs quit 11/30/2014 - 11/30/2014 TREATMENT PLAN Encounter Date [facility] 08/23/2020 09:37:34 ORDERED/ADVISED: Order Date 08-23-2020 - [...] # 60, RF: 2. (Transmitted by Colleen ReinaDO joelle) ORDERED/ADVISED: Order Date 08-15-2020 - CBC [...] # 60, RF: 2. (Transmitted by Colleen PocahontasDO joelle) ORDERED/ADVISED: Order Date 08-15-2020 - CBC [...] Appointment scheduled for a telehealth visit to [facility] on 03/22/2020. 03/15/2020 12:24:05 HgA1c is 10.0% Appointment scheduled for a telehealth visit to [facility] on 03/22/2020. 10/25/2019 08:14:07 Plan [...] the Left Deltoid (Mfg: SEQIRUS lot no. [id number], expires 02/29/2020) ORDERED/ADVISED: Order Date 08-13-2019 - [...] the Left Deltoid (Mfg: SEQIRUS lot no. [id number], expires 02/29/2020) ORDERED/ADVISED: Order Date 08-13-2019 - [...] the Left Deltoid (Mfg: SEQIRUS lot no. [id number], expires 02/29/2020) ORDERED/ADVISED: Order Date 08-13-2019 - [...] Flakito Estes MD You can download a BMP [employer] melba to your computer and get these books on [employer]. Watch the movie "the magic pill" documentary on [employer] Flakito Estes [employer] and watch [...] Flakito Estes MD You can download a BMP [employer] melba to your computer and get these books on [employer]. Watch the movie "the magic pill" documentary on [employer] and watch it 06/18/2019 09:23:34 Plan printed and provided to patient: PRESCRIBE: ibuprofen 800 mg oral tablet, one po tid with food, # 90, RF: 1. (Transmitted by Colleen Huang DO) Barber christopher PROVIDED HM: CDSMP Given: "the obesity code", " the diabetes code", and "quide to fasting" by Flakito Estes MD You can download a BMP [employer] melba to your computer and get these books on [employer]. Watch the movie "the magic pill" documentary on [employer] and watch it 03/24/2019 08:14:04 Plan printed and provided to patient: PROVIDED HM: CDSMP Given: "the obesity code", " the diabetes code", and "quide to fasting" by Flakito Estes MD You can download a BMP [employer] melba to your Streaming Erane for free. then you can go to [employer] and download books at a reduced jean. [...] Flakito Estes MD You can download a BMP [employer] melba to your Stream[employer] for free. then you can go to [employer] and download books at a reduced jean. [...] Flakito Estes MD You can download a BMP [employer] melba to your Stream[employer] for free. then you can go to [employer] and download books at a reduced jean. [...] 360, RF: 2. (Transmitted by Colleen Huang, ) PRESCRIBE: metFORMIN [...] with Diabetes Mellitus Given: 9.6% 09/07/2018 08:17:34 [employer] recheck in 3 months PROVIDED HM: Recommendations for Testing HgbA1C in Individuals with Diabetes Mellitus Given: 6.9% 09/07/2018 08:17:34 [facility] recheck in 3 months 07/20/2018 13:54:05 Plan [...] # 5, RF: 0. (Transmitted by Colleen PocahontasDO joelle) Date Prescribed: 06/26/2018 REMOVED from Current [...] # 90, RF: 3. (Transmitted by Colleen Pocahontas, ) PRESCRIBE: Linzess 145 mcg oral capsule, one po daily prn constipation, # 90, RF: 3. (Transmitted by Colleen Reina, ) PRESCRIBE: atorvastatin 10 mg oral tablet, one po daily, # 90, RF: 3. (Transmitted by Colleen PocahontasDO joelle) CHANGED Current Meds: Trulicity Pen 1.5 mg/0.5 mL subcutaneous solution REMOVED from Current Meds: Lantus Solostar Pen 100 units/mL subcutaneous solution, 14 units sq daily, # 5, RF: 0. (Transmitted by [facility], ) Date Prescribed: 06/26/2018 REMOVED from Current [...] # 90, RF: 3. (Transmitted by Colleen Pocahontas, DO) PRESCRIBE: ProAir HFA 90 mcg/inh inhalation aerosol, two puffs qid prn wheeze, # 1, RF: 3. (Transmitted by Colleen Huang, DO) PRESCRIBE: metFORMIN 500 mg oral tablet, one po bid pc, # 180, RF: 3. (Transmitted by Colleen Pocahontas, DO) PRESCRIBE: lisinopril 10 mg oral tablet, one po daily, # 90, RF: 3. (Transmitted by Colleen Pocahontas, DO) PRESCRIBE: Linzess 145 mcg oral capsule, one po daily prn constipation, # 90, RF: 3. (Transmitted by Colleen Reina, DO) PRESCRIBE: Lantus Solostar Pen 100 units/mL subcutaneous solution, 25 units hs daily, # 5, RF: 5. (Transmitted by ColleenMingglard, DO) PRESCRIBE: glipiZIDE 10 mg oral tablet, one po daily, # 90, RF: 3. (Transmitted by Colleen Pocahontas, DO) PRESCRIBE: BD Pen Needle Mini U/F, [...] diabetes related complication....14% decrease in risk of [place].....12%decrease risk of stroke...and a 37% decrease risk [...] we have to work with? Time/Travel/Tastes/Treatments?? Arrange: Ice Cream Freezer Assistant? www.eatright.org Summons Server?www.diabeteseducator.org Pharmacy/Pharmacy benefits Literature? Recipes Diabetes [place] www.diabetes.org www.ncbde.org www.diabeeseducator.org/deap www.ndep.nih.gov www.diabetes.org www.learningaboutdiabetes.org www.diabeticconnect.com www.[employer].[place] www.diabeteswhattoknow.com www.peersforprogress.org [place] Read about [...] # 5, RF: 5. (Transmitted by Colleen Pocahontas, DO) PRESCRIBE: glipiZIDE 10 mg oral tablet, one po daily, # 90, RF: 3. (Transmitted by Colleen Pocahontas, DO) PRESCRIBE: BD Pen Needle Mini U/F, use as directed for lantus injection, # 100, RF: 3. (Transmitted by Colleen Reina, DO) PRESCRIBE: atorvastatin 10 mg oral tablet, one po daily, # 90, RF: 3. (Transmitted by Colleen Pocahontas, DO) He is walking at least a [...] diabetes related complication....14% decrease in risk of [place].....12%decrease risk of stroke...and a 37% decrease risk [...] we have to work with? Time/Travel/Tastes/Treatments?? Arrange: Ice Cream Freezer Assistant? www.eatright.org Summons Server?www.diabeteseducator.org Pharmacy/Pharmacy benefits Literature? Recipes Diabetes [place] www.diabetes.org www.ncbde.org www.diabeeseducator.org/deap www.ndep.nih.gov www.diabetes.org www.learningaboutdiabetes.org www.diabeticconnect.com www.[employer].[place] www.diabeteswhattMeisterLabsnow.com www.peersforprogress.org [place] Read about tanner [...] diabetes related complication....14% decrease in risk of [place].....12%decrease risk of stroke...and a 37% decrease risk [...] we have to work with? Time/Travel/Tastes/Treatments?? Arrange: Ice Cream Freezer Assistant? www.eatright.org Summons Server?www.diabeteseducator.org Pharmacy/Pharmacy benefits Literature? Recipes Diabetes [place] www.diabetes.org www.ncbde.org www.diabeeseducator.org/deap www.ndep.nih.gov www.diabetes.org www.learningaboutdiabetes.org www.diabeticconnect.com www.whatMeisterLabsnow.com www.diabeteswhattoknow.com www.peersforprogress.org [place] Read about meetasosaclaudia 03/07/2017 09:18:02 Plan printed and provided to [...] diabetes related complication....14% decrease in risk of [place].....12%decrease risk of stroke...and a 37% decrease risk [...] we have to work with? Time/Travel/Tastes/Treatments?? Arrange: Ice Cream Freezer Assistant? www.eatright.org Summons Server?www.diabeteseducator.org Pharmacy/Pharmacy benefits Literature? Recipes Diabetes [place] www.diabetes.org www.ncbde.org www.diabeeseducator.org/deap www.ndep.nih.gov www.diabetes.org www.learningaboutdiabetes.org www.diabeticconnect.com www.[employer].[place] www.diabeteswhattMeisterLabsnow.[place] www.peersforprogress.org [place] PROVIDED HM: Obesity: [...] diabetes related complication....14% decrease in risk of [place].....12%decrease risk of stroke...and a 37% decrease risk [...] we have to work with? Time/Travel/Tastes/Treatments?? Arrange: Ice Cream Freezer Assistant? www.eatright.org Summons Server?www.diabeteseducator.org Pharmacy/Pharmacy benefits Literature? Recipes Diabetes [place] www.diabetes.org www.ncbde.org www.diabeeseducator.org/deap www.ndep.nih.gov www.diabetes.org www.learningaboutdiabetes.org www.diabeticconnect.com www.[employer].[place] www.diabeteswhattMeisterLabsnow.com www.peersforprogress.org [place] PROVIDED HM: Obesity: [...] diabetes related complication....14% decrease in risk of [place].....12%decrease risk of stroke...and a 37% decrease risk [...] we have to work with? Time/Travel/Tastes/Treatments?? Arrange: Ice Cream Freezer Assistant? www.eatright.org Summons Server?www.diabeteseducator.org Pharmacy/Pharmacy benefits Literature? Recipes Diabetes [place] www.diabetes.org www.ncbde.org www.diabeeseducator.org/deap www.ndep.nih.gov www.diabetes.org www.learningaboutdiabetes.org www.diabeticconnect.com www.[employer].[place] www.diabeteswhattoknow.com www.peersforprogress.org [place] PROVIDED HM: [...] 60, RF: 0. PROVIDED HM: CDSMP Given: [employer] "Addictocarb Carb" Consider the Mediterranean Diet. Eliminate [...] 60, RF: 0. PROVIDED HM: CDSMP Given: [employer]"Addictocarb Carb" Consider the Mediterranean Diet. Eliminate soda.....lose [...] 60, RF: 0. PROVIDED HM: CDSMP Given: [employer] "Addictocarb Carb" Consider the Mediterranean Diet. Eliminate [...] 4, # 6, RF: 0. (Transmitted by [facility], ) ORDERED/ADVISED: - CXR - PA & [...] support/Move your body/Think positive/Be good to yourself/ [place] [employer]abetic Educators....7 behaviors for diabetes [...] support/Move your body/Think positive/Be good to yourself/ [place] [employer] Educators....7 behaviors for diabetes [...] support/Move your body/Think positive/Be good to yourself/ [place] [employer]abetic Educators....7 behaviors for diabetes [...] the Left Deltoid (Mfg: OTHER lot no. [id number], expires 01/08/2017) PROVIDED HM: Screening for Depression in Adults Given: Not present Percoset script to [facility] [place] 05/15/2016 08:27:09 Plan printed and provided to patient: PROVIDED VACCINATION: 1 dose of Fluvirin, 0.5 mL IM in the Left Deltoid (Mfg: OTHER lot no. [id number], expires 01/08/2017) PROVIDED HM: Screening for Depression in Adults Given: Not present Percoset script to mg [facility] 05/15/2016 08:27:09 Plan printed and provided to patient: PROVIDED VACCINATION: 1 dose of Fluvirin, 0.5 mL IM in the Left Deltoid (Mfg: OTHER lot no. [id number], expires 01/08/2017) PROVIDED HM: Screening for Depression [...] pc, # 180, RF: 3. (Transmitted by [facility], DO) PRESCRIBE: lisinopril 10 mg oral tablet, one po daily, # 90, RF: 3. (Transmitted by Colleen Reina, DO) PRESCRIBE: glipiZIDE 10 mg oral tablet, one po daily, # 90, RF: 3. (Transmitted by ColleenMingglard, DO) PRESCRIBE: cholecalciferol 50,000 intl units oral capsule, one po weekly, # 12, RF: 3. (Transmitted by [facility], DO) PRESCRIBE: atorvastatin 10 mg oral tablet, one po daily, # 90, RF: 3. (Transmitted by [facility], DO) ORDERED/ADVISED: - CBC with diff (automated) [...] # 1, RF: 5. (Transmitted by Colleen Pocahontas, DO) PRESCRIBE: Cortisporin-TC otic suspension, 4 gtts into left EAC bid, # 5, RF: 0. (Transmitted by ColleenMingglard, DO) Increase lantus insulin to 24 units [...] daily, # 90, RF: 0. (Transmitted by [facility], DO) PRESCRIBE: glipiZIDE 10 mg oral tablet, [...] the Left Deltoid (Mfg: NOVARTIS lot no. [id number], expires 01/29/2015) ORDERED/ADVISED: - CBC with diff [...] 13:52:33 Instructions printed and provided to patient: [employer] site consulted prior to scheduled drug prescription. [...] bid prn pain, # 60, RF: NONE. [employer] site consulted prior to scheduled drug prescription. [...] Ds) ICD9 Codes (250.00, 600.9, 272.4, 401.9) [employer] site consulted prior to scheduled drug prescription. [...] # 225, RF: 3. (Transmitted by Colleen Pocahontas, DO) PRESCRIBE: lisinopril 10 mg oral tablet, one po daily, # 90, RF: 3. (Transmitted by Colleen Pocahontas, DO) PRESCRIBE: Crestor 5 mg oral tablet, one half po daily, # 45, RF: 3. (Transmitted by Colleen Huang, DO) PRESCRIBE: BD ultrafine needles for byetta injection, one bid as directed, # 180, RF: 3. (Transmitted by Colleen Reina, DO) PRESCRIBE: Byetta Prefilled Pen 10 mcg/0.04 [...] (250.00, 600.9, 724.2, 272.4, 401.9) - HGA1C (Tick/Rdoriguez's Palsy) ICD9 Codes (250.00, 600.9, 724.2, 272.4, [...] by Colleen Huang DO) All sent to [facility] today and 06/19/11. DISCONTINUE: gabapentin [...] ml IM in the L DELTOID (Mfg: [employer] lot no. [id number], expires 02/28/2012) ORDERED/ADVISED: - Urine microalbumin (AODM) [...] PRESCRIBE: Gabapentin 100mg, one or two po [id number] prn back pain, # 180, RF: 5. [...]
--- OUTSIDE RECORDS SUMMARY | 2020-10-17 11:17 | CCD ---
Author Author Colleen Huang DO Organization Colleen Huang DO Address [address] [place], [place] [id number] Care Team Providers Care Cork Sorter Name Role Phone Reina GOLDEN MA, Celestine Renteria Unavailable Colleen Huang DO Unavailable Colleen Huang DO PCP ENCOUNTERS Encounter Performer Loca tion Date Acute pancreatitis [SNOMED-CT: 170240216] Dr. Colleen Huang DO 08-15-2020 Type II diabetes mellitus poorly control led [SNOMED-CT: 883369731] Dr. Colleen Huang DO 08-15-2020 Generalised itching [SNOMED-CT: 744657306] Celestine Huang DO 08-15-2020 Acute pancreatitis [SNOMED-CT: 636948536] Dr. Colleen Huang DO 08-14-2020 Type II diabetes mellitus poorly control led [SNOMED-CT: 205378720] Dr. Colleen Huang DO 08-14-2020 Other hyperlipidemia [ICD10: E78.49] Dr. Colleen Huang DO 08-14-2020 Balanitis [SNOMED-CT: 03859766] Dr. Colleen Huang DO 05-30-2020 Type II diabetes mellitus poorly control led [SNOMED-CT: 310717328] Dr. Colleen Huang DO 05-30-2020 Type II diabetes mellitus poorly control led [SNOMED-CT: 064777408] Dr. Colleen Huang DO 03-22-2020 Other hyperlipidemia [ICD10: E78.49] Dr. Colleen Huang, DO 03-22-2020 DIABETES MELLITUS WITHOUT MENTION OF COM PLICATION [SNOMED-CT: 067990750] N/A N/A 03-15-2020 Acute rhinosinusitis [SNOMED-CT: 545479141] Dr. Colleen Huang, DO 09-08-2019 Upper respiratory infection [SNOMED-CT: 59422326] Dr. Colleen Huang, DO 09-08-2019 DIABETES WITH RENAL MANIFESTATIONS TYPE II OR UNSPECIFIED TYPE NOT STATED UNCONTROLLED [SNOMED-CT: 812733689] Dr. Colleen Huang, DO 08-13-2019 UNSPECIFIED ESSENTIAL HYPERTENSION [SNOMED-CT: 4176360 0] N/A N/A 08-13-2019 ANXIETY STATE UNSPECIFIED [SNOMED-CT: 454116011] Celestine Huang, DO 08-13-2019 CHRONIC KIDNEY DISEASE STAGE II (MILD) [SNOMED-CT: 431 683888] Dr. Colleen Huang, DO 08-13-2019 Other specified vaccination [ICD10: Z23] Celestine Huang, DO 08-13-2019 Pain in left foot [SNOMED-CT: 460665224014142] Dr. Colleen Huang, DO 06-18-2019 DIABETES MELLITUS WITHOUT MENTION OF COM PLICATION [SNOMED-CT: 516879927] Celestine Huang, DO 06-18-2019 DIABETES WITH RENAL MANIFESTATIONS TYPE II OR UNSPECIFIED TYPE NOT STATED UNCONTROLLED [SNOMED-CT: 509003309] Dr. Colleen Huang, DO 03-24-2019 Contusion of lower back and pelvis, init ial encounter [ICD10: S30.0XXA] Dr. Colleen Huang, DO 12-14-2018 DIABETES WITH RENAL MANIFESTATIONS TYPE II OR UNSPECIFIED TYPE NOT STATED UNCONTROLLED [SNOMED-CT: 537977211] Dr. Colleen Huang, DO 12-14-2018 DIABETES MELLITUS WITHOUT MENTION OF COM PLICATION [SNOMED-CT: 870835555] N/A N/A 09-07-2018 DIABETES WITH RENAL MANIFESTATIONS TYPE II OR UNSPECIFIED TYPE NOT STATED UNCONTROLLED [SNOMED-CT: 377684333] Dr. Colleen Huang, DO 07-20-2018 Other hyperlipidemia [ICD10: E78.49] Dr. Colleen Huang, DO 07-20-2018 Back pain [SNOMED-CT: 052837664] Dr. Colleen Huang, DO 06-03-2018 DIABETES WITH RENAL MANIFESTATIONS TYPE II OR UNSPECIFIED TYPE NOT STATED UNCONTROLLED [SNOMED-CT: 226852590] Dr. Colleen Huang, DO 06-03-2018 Arthropathy of left shoulder [SNOMED-CT: 5701776844498 9103] Dr. Colleen Huang, DO 06-03-2018 DIABETES WITH RENAL MANIFESTATIONS TYPE II OR UNSPECIFIED TYPE NOT STATED UNCONTROLLED [SNOMED-CT: 377749688] Dr. Colleen Huang, DO 03-27-2018 Viral gastroenteritis [SNOMED-CT: 071836641] Dr. Colleen Huang, DO 12-26-2017 DIABETES WITH RENAL MANIFESTATIONS TYPE II OR UNSPECIFIED TYPE NOT STATED UNCONTROLLED [SNOMED-CT: 227435166] Dr. Colleen Huang, DO 12-26-2017 Cat bite [SNOMED-CT: 378782916] Dr. Colleen Huang, DO 12-26-2017 DIABETES WITH RENAL MANIFESTATIONS TYPE II OR UNSPECIFIED TYPE NOT STATED UNCONTROLLED [SNOMED-CT: 078093344] Dr. Colleen Huang, DO 09-24-2017 DIABETES MELLITUS WITHOUT MENTION OF COM PLICATION [SNOMED-CT: 818978537] Celestine Huang, DO 09-24-2017 ROUTINE GENERAL MEDICAL EXAMINATION AT A HEALTH CARE FACILITY [SNOMED-CT: 182250150] Celestine Huang, DO 06-02-2017 DIABETES WITH RENAL MANIFESTATIONS TYPE II OR UNSPECIFIED TYPE NOT STATED UNCONTROLLED [SNOMED-CT: 851861306] Dr. Colleen Huang, DO 06-02-2017 Allergic contact dermatitis of male melissa isamar [SNOMED-CT: 086925769] Dr. Colleen Huang, DO 03-07-2017 Other genital problems [ICD10: R68.89] Dr. Colleen Huang, DO 03-07-2017 DIABETES WITH RENAL MANIFESTATIONS TYPE II OR UNSPECIFIED TYPE NOT STATED UNCONTROLLED [SNOMED-CT: 649278683] Dr. Colleen Huang, DO 03-07-2017 Back pain [SNOMED-CT: 605265976] Dr. Colleen Huang, DO 03-07-2017 LUMBAGO [SNOMED-CT: 546704504] Jose Angelberny Huang, DO 03-07-2017 Penile cellulitis/abscess/boil [SNOMED-CT: 995129824] Dr. Colleen Huang, DO 01-15-2017 DIABETES WITH RENAL MANIFESTATIONS TYPE II OR UNSPECIFIED TYPE NOT STATED UNCONTROLLED [SNOMED-CT: 021291464] Dr. Colleen Huang, DO 01-15-2017 Back pain [SNOMED-CT: 415462600] Dr. Colleen Huang, DO 11-06-2016 DIABETES WITH RENAL MANIFESTATIONS TYPE II OR UNSPECIFIED TYPE NOT STATED UNCONTROLLED [SNOMED-CT: 175913439] Dr. Colleen Huang, DO 11-06-2016 UNSPECIFIED ESSENTIAL HYPERTENSION [SNOMED-CT: 4296935 0] N/A N/A 11-06-2016 Bronchospasm [SNOMED-CT: 3390211] Dr Joe Huang, DO 09-04-2016 Back pain [SNOMED-CT: 289316828] Dr. Colleen Huang, DO 09-04-2016 Primary atypical interstitial pneumonia [SNOMED-CT: 35 487180] Dr. Colleen Huang, DO 09-04-2016 Back pain [SNOMED-CT: 011356765] Dr. Colleen Huang, DO 07-10-2016 DIABETES WITH RENAL MANIFESTATIONS TYPE II OR UNSPECIFIED TYPE NOT STATED UNCONTROLLED [SNOMED-CT: 448179455] Dr. Colleen Huang, DO 07-10-2016 Back pain [SNOMED-CT: 848397181] Dr. Colleen Huang, DO 05-15-2016 CHRONIC KIDNEY DISEASE STAGE II (MILD) [SNOMED-CT: 431 686248] Dr. Colleen Huang, DO 05-15-2016 DIABETES WITH RENAL MANIFESTATIONS TYPE II OR UNSPECIFIED TYPE NOT STATED UNCONTROLLED [SNOMED-CT: 221986407] Dr. Colleen Huang, DO 05-15-2016 LUMBAGO [SNOMED-CT: 890163197] Jose Angel ungre Reina Huang, DO 05-15-2016 Other specified vaccination [ICD10: Z23] Celestine Huang, DO 05-15-2016 Back pain [SNOMED-CT: 933860986] Dr. Colleen Huang, DO 03-18-2016 DIABETES WITH RENAL MANIFESTATIONS TYPE II OR UNSPECIFIED TYPE NOT STATED UNCONTROLLED [SNOMED-CT: 677823706] Dr. Colleen Huang, DO 03-18-2016 DIABETES WITH RENAL MANIFESTATIONS TYPE II OR UNSPECIFIED TYPE NOT STATED UNCONTROLLED [SNOMED-CT: 223787938] Dr. Colleen Huang, DO 01-22-2016 Exogenous hyperlipidemia [SNOMED-CT: 478020090] Dr. Colleen Huang, DO 01-22-2016 ANXIETY STATE UNSPECIFIED [SNOMED-CT: 205268007] Celestine Huang, DO 01-22-2016 DIABETES WITH RENAL MANIFESTATIONS TYPE II OR UNSPECIFIED TYPE NOT STATED UNCONTROLLED [SNOMED-CT: 077245542] Dr. Colleen Huang, DO 12-15-2015 Otitis externa [SNOMED-CT: 9099054] Celestine Huang, DO 12-15-2015 Impacted cerumen [SNOMED-CT: 13611890] Celestine Huang, DO 12-15-2015 DIABETES WITH RENAL MANIFESTATIONS TYPE II OR UNSPECIFIED TYPE NOT STATED UNCONTROLLED [SNOMED-CT: 549479407] Dr. Colleen Huang, DO 11-17-2015 Back pain [SNOMED-CT: 819662640] Dr. Colleen Huang, DO 11-17-2015 UNSPECIFIED SLEEP APNEA [SNOMED-CT: 42932587] Celestine Huang, DO 11-17-2015 UNSPECIFIED ESSENTIAL HYPERTENSION [SNOMED-CT: 7113037 0] N/A N/A 11-17-2015 ROUTINE GENERAL MEDICAL EXAMINATION AT A HEALTH CARE FACILITY [SNOMED-CT: 184220554] Celestine Huang, DO 09-27-2015 Back pain [SNOMED-CT: 676149103] Dr. Colleen Huang, DO 08-11-2015 Dysuria-frequency syndrome [SNOMED-CT: 5664669] Dr. Colleen Huang, DO 08-11-2015 LUMBAGO [SNOMED-CT: 346724956] Jose Angelberny Huang, DO 06-19-2015 CLOSED FRACTURE OF LUMBAR VERTEBRA WITHO UT SPINAL [SNOMED-CT: 86195333] Celestine Huang, DO 06-19-2015 DIABETES WITH RENAL MANIFESTATIONS TYPE II OR UNSPECIFIED TYPE NOT STATED UNCONTROLLED [SNOMED-CT: 096733564] Dr. Colleen Huang, DO 06-19-2015 DIABETES WITH RENAL MANIFESTATIONS TYPE II OR UNSPECIFIED TYPE NOT STATED UNCONTROLLED [SNOMED-CT: 258006836] Dr. Colleen Huang, DO 04-26-2015 Back pain [SNOMED-CT: 860962190] Dr. Colleen Huang, DO 04-26-2015 Other constipation [ICD9: 564.09] Dr Joe Huang, DO 01-18-2015 Back pain [SNOMED-CT: 857432078] Dr. Colleen Huang, DO 01-18-2015 DIABETES WITH RENAL MANIFESTATIONS TYPE II OR UNSPECIFIED TYPE NOT STATED UNCONTROLLED [SNOMED-CT: 564395376] Dr. Colleen Huang, DO 11-30-2014 CHRONIC KIDNEY DISEASE STAGE II (MILD) [SNOMED-CT: 431 273497] Dr. Colleen Huang, DO 11-30-2014 UNSPECIFIED ESSENTIAL HYPERTENSION [SNOMED-CT: 8340201 0] N/A N/A 11-30-2014 DIABETES WITH RENAL MANIFESTATIONS TYPE II OR UNSPECIFIED TYPE NOT STATED UNCONTROLLED [SNOMED-CT: 464375950] Dr. Colleen Huang, DO 10-19-2014 CHRONIC KIDNEY DISEASE STAGE II (MILD) [SNOMED-CT: 431 011508] Dr. Colleen Huang, DO 10-19-2014 DIABETES WITH RENAL MANIFESTATIONS TYPE II OR UNSPECIFIED TYPE NOT STATED UNCONTROLLED [SNOMED-CT: 121699403] Dr. Colleen Huang, DO 09-16-2014 DIABETES WITH RENAL MANIFESTATIONS TYPE II OR UNSPECIFIED TYPE NOT STATED UNCONTROLLED [SNOMED-CT: 195080005] Dr. Colleen Huang, DO 09-14-2014 CHRONIC KIDNEY DISEASE STAGE II (MILD) [SNOMED-CT: 431 374528] Dr. Colleen Huang, DO 09-14-2014 ROUTINE GENERAL MEDICAL EXAMINATION AT A HEALTH CARE FACILITY [SNOMED-CT: 980366571] Celestine Huang, DO 08-22-2014 Other specified vaccination [ICD10: Z23] Celestine Huang, DO 08-22-2014 DIABETES MELLITUS WITHOUT MENTION OF COM PLICATION [SNOMED-CT: 083823926] N/A N/A 05-09-2014 DIABETES MELLITUS WITHOUT MENTION OF COM PLICATION [SNOMED-CT: 962373931] Celestine Huang, DO 03-16-2014 Back pain [SNOMED-CT: 064020186] Dr. Colleen Huang, DO 03-16-2014 CONTACT DERMATITIS AND OTHER ECZEMA UNSP ECIFIED CA [SNOMED-CT: 808240753] N/A N/A 03-16-2014 UNSPECIFIED ESSENTIAL HYPERTENSION [SNOMED-CT: 6815423 0] N/A N/A 03-16-2014 DIABETES MELLITUS WITHOUT MENTION OF COM PLICATION [SNOMED-CT: 676190659] Celestine Huang, DO 11-05-2013 Back pain [SNOMED-CT: 313737385] Dr. Colleen Huang, DO 11-05-2013 CLOSED FRACTURE OF LUMBAR VERTEBRA WITHO UT SPINAL [SNOMED-CT: 38063480] Celestine Huang, DO 11-05-2013 ANXIETY STATE UNSPECIFIED [SNOMED-CT: 585265694] Celestine Huang, DO 11-05-2013 DIABETES MELLITUS WITHOUT MENTION OF COM PLICATION [SNOMED-CT: 553784587] Celestine Huang, DO 06-11-2013 UNSPECIFIED ESSENTIAL HYPERTENSION [SNOMED-CT: 4659921 0] N/A N/A 06-11-2013 INSOMNIA UNSPECIFIED [SNOMED-CT: 120113059] Dr. Colleen Huang, DO 06-09-2013 ANXIETY STATE UNSPECIFIED [SNOMED-CT: 760459209] Celestine Huang, DO 06-09-2013 DIABETES MELLITUS WITHOUT MENTION OF COM PLICATION [SNOMED-CT: 583662328] Celestine Huang, DO 02-17-2013 HYPERPLASIA OF PROSTATE UNSPECIFIED WITH OUT URINAR [SNOMED-CT: 062816743] Celestine Huang, DO 02-17-2013 CLOSED FRACTURE OF LUMBAR VERTEBRA WITHO UT SPINAL [SNOMED-CT: 72797233] Celestine Huang, DO 02-17-2013 UNSPECIFIED ESSENTIAL HYPERTENSION [SNOMED-CT: 2465052 0] N/A N/A 02-17-2013 ROUTINE GENERAL MEDICAL EXAMINATION AT A HEALTH CARE FACILITY [SNOMED-CT: 941250982] Celestine Huang, DO 11-02-2012 DIABETES MELLITUS WITHOUT MENTION OF COM PLICATION [SNOMED-CT: 495719682] Celestine Huang, DO 08-28-2012 LUMBAGO [SNOMED-CT: 500811080] Jose Angel Huang, DO 08-05-2012 DIABETES MELLITUS WITHOUT MENTION OF COM PLICATION [SNOMED-CT: 001385943] Celestine Huang, DO 08-05-2012 UNSPECIFIED ESSENTIAL HYPERTENSION [SNOMED-CT: 8116505 0] N/A N/A 08-05-2012 DIABETES MELLITUS WITHOUT MENTION OF COM PLICATION [SNOMED-CT: 646587340] Celestine Huang, DO 02-26-2012 LUMBAGO [SNOMED-CT: 350775599] Jose Angel Huang, DO 02-26-2012 UNSPECIFIED ESSENTIAL HYPERTENSION [SNOMED-CT: 7537375 0] N/A N/A 02-26-2012 DIABETES MELLITUS WITHOUT MENTION OF COM PLICATION [SNOMED-CT: 731320819] Celestine Huang, DO 10-23-2011 LUMBAGO [SNOMED-CT: 819206849] Jose Angel Huang, DO 10-23-2011 PAIN IN JOINT INVOLVING SHOULDER REGION [SNOMED-CT: 103442770] Celestine Huang, DO 08-21-2011 DIABETES MELLITUS WITHOUT MENTION OF COM PLICATION [SNOMED-CT: 949681887] Celestine Huang, DO 08-21-2011 HYPERPLASIA OF PROSTATE UNSPECIFIED WITH OUT URINAR [SNOMED-CT: 908484491] Celestine Huang, DO 08-21-2011 UNSPECIFIED ESSENTIAL HYPERTENSION [SNOMED-CT: 1395584 0] N/A N/A 08-21-2011 Other specified vaccination [ICD10: Z23] Celestine Huang, DO 08-21-2011 PAIN IN JOINT INVOLVING SHOULDER REGION [SNOMED-CT: 534048122] Celestine Huang, DO 06-19-2011 DIABETES MELLITUS WITHOUT MENTION OF COM PLICATION [SNOMED-CT: 408003038] Celestine Huang, DO 06-19-2011 HYPERPLASIA OF PROSTATE UNSPECIFIED WITH OUT URINAR [SNOMED-CT: 668144233] Celestine Huang, DO 06-19-2011 UNSPECIFIED ESSENTIAL HYPERTENSION [SNOMED-CT: 6600961 0] N/A N/A 06-19-2011 Other specified vaccination [ICD10: Z23] Celestine Huang, DO 06-19-2011 PAIN IN JOINT INVOLVING SHOULDER REGION [SNOMED-CT: 818980816] Celestine Huang, DO 03-08-2011 DIABETES MELLITUS WITHOUT MENTION OF COM PLICATION [SNOMED-CT: 299278006] Celestine Huang, DO 03-08-2011 HYPERPLASIA OF PROSTATE UNSPECIFIED WITH OUT URINAR [SNOMED-CT: 596697099] Celestine Huang, DO 03-08-2011 UNSPECIFIED ESSENTIAL HYPERTENSION [SNOMED-CT: 4340013 0] N/A N/A 03-08-2011 PAIN IN JOINT INVOLVING SHOULDER REGION [SNOMED-CT: 505170235] Celestine Huang, DO 12-26-2010 DIABETES MELLITUS WITHOUT MENTION OF COM PLICATION [SNOMED-CT: 527799096] Celestine Huang, DO 12-26-2010 HYPERPLASIA OF PROSTATE UNSPECIFIED WITH OUT URINAR [SNOMED-CT: 128430365] Celestine Huang, DO 12-26-2010 UNSPECIFIED ESSENTIAL HYPERTENSION [SNOMED-CT: 4310168 0] N/A N/A 12-26-2010 Back pain [SNOMED-CT: 329887825] Dr. Colleen Huang, DO 12-14-2010 CLOSED FRACTURE OF LUMBAR VERTEBRA WITHO UT SPINAL [SNOMED-CT: 15830792] Celestine Huang, DO 12-14-2010 DIABETES MELLITUS WITHOUT MENTION OF COM PLICATION [SNOMED-CT: 974325454] Celestine Huang, DO 09-24-2010 CLOSED FRACTURE OF LUMBAR VERTEBRA WITHO UT SPINAL [SNOMED-CT: 12886935] Celestine Huang, DO 09-24-2010 UNSPECIFIED ESSENTIAL HYPERTENSION [SNOMED-CT: 1004491 0] N/A N/A 09-24-2010 DIABETES MELLITUS WITHOUT MENTION OF COM PLICATION [SNOMED-CT: 121181003] Celestine Huang, DO 08-29-2010 CLOSED FRACTURE OF LUMBAR VERTEBRA WITHO UT SPINAL [SNOMED-CT: 84884713] Celestine Huang, DO 08-29-2010 UNSPECIFIED ESSENTIAL HYPERTENSION [SNOMED-CT: 2643773 0] N/A N/A 08-29-2010 DIABETES MELLITUS WITHOUT MENTION OF COM PLICATION [SNOMED-CT: 542421871] Celestine Huang, DO 06-27-2010 CLOSED FRACTURE OF LUMBAR VERTEBRA WITHO UT SPINAL [SNOMED-CT: 31976443] Celestine Huang, DO 06-27-2010 UNSPECIFIED ESSENTIAL HYPERTENSION [SNOMED-CT: 7949645 0] N/A N/A 06-27-2010 CLOSED FRACTURE OF LUMBAR VERTEBRA WITHO UT SPINAL [SNOMED-CT: 01875631] Celestine Huang, DO 06-13-2010 DIABETES MELLITUS WITHOUT MENTION OF COM PLICATION [SNOMED-CT: 532141933] Celestine Huang, DO 03-23-2010 IMPOTENCE OF ORGANIC ORIGIN [SNOMED-CT: 995616716] N/A N/A 03-23-2010 UNSPECIFIED ESSENTIAL HYPERTENSION [SNOMED-CT: 0264098 0] N/A N/A 03-23-2010 UNSPECIFIED CATARACT [SNOMED-CT: 209752564] Celestine Huang, DO 01-26-2010 DIABETES MELLITUS WITHOUT MENTION OF COM PLICATION [SNOMED-CT: 118527491] Celestine Huang, DO 01-26-2010 UNSPECIFIED SLEEP APNEA [SNOMED-CT: 07055324] Celestine Huang, DO 01-26-2010 UNSPECIFIED ESSENTIAL HYPERTENSION [SNOMED-CT: 9837009 0] N/A N/A 01-26-2010 UNSPECIFIED DISORDER OF SKIN AND SUBCUTA NEOUS TISS [SNOMED-CT: 67901804] Celestine Huang, DO 01-26-2010 IMPOTENCE OF ORGANIC ORIGIN [SNOMED-CT: 225621379] N/A N/A 01-26-2010 DIABETES MELLITUS WITHOUT MENTION OF COM PLICATION [SNOMED-CT: 717620264] Celestine Huang, DO 12-20-2009 UNSPECIFIED ESSENTIAL HYPERTENSION [SNOMED-CT: 9561900 0] N/A N/A 12-20-2009 HYPERPLASIA OF PROSTATE UNSPECIFIED WITH OUT URINAR [SNOMED-CT: 004593853] Celestine Huang, DO 12-20-2009 UNSPECIFIED DISORDER OF SKIN AND SUBCUTA NEOUS TISS [SNOMED-CT: 33852494] Celestine Huang, DO 12-20-2009 IMPOTENCE OF ORGANIC ORIGIN [SNOMED-CT: 184623604] N/A N/A 12-20-2009 DIABETES MELLITUS WITHOUT MENTION OF COM PLICATION [SNOMED-CT: 943747691] N/A N/A 09-18-2009 UNSPECIFIED ESSENTIAL HYPERTENSION [SNOMED-CT: 0242222 0] N/A N/A 09-18-2009 IMPOTENCE OF ORGANIC ORIGIN [SNOMED-CT: 162272678] N/A N/A 09-18-2009 DIABETES MELLITUS WITHOUT MENTION OF COM PLICATION [SNOMED-CT: 102234837] N/A N/A 06-28-2009 DIABETES MELLITUS WITHOUT MENTION OF COM PLICATION [SNOMED-CT: 039823453] N/A N/A 06-16-2009 UNSPECIFIED ESSENTIAL HYPERTENSION [SNOMED-CT: 2518527 0] N/A N/A 06-16-2009 CONTACT DERMATITIS AND OTHER ECZEMA UNSP ECIFIED CA [SNOMED-CT: 494041778] N/A N/A 06-16-2009 ALLERGIES AND ADVERSE REACTIONS [...] hydrOXYzine hydrochloride 25 mg oral tablet, [RxNorm: 687468] hydrOXYzine one po bid prn and two po at hs 60 08/15/2020 Active atorvastatin 10 mg oral tablet, [RxNorm: 256387] atorvastatin one po hs daily 0 08/14/2020 Active metFORMIN 500 mg oral tablet, [RxNorm: 293445] metFORMIN one po bid 08/14/2020 Active HumaLOG 100 units/mL injectable solution, [RxNorm: 865 098] insulin lispro 6 units this am for sugar of 220....he h as a sliding scale 0 08/14/2020 Active Diflucan 150 mg oral tablet, [RxNorm: 516918] fluconazole one po now and repeat in 5 days 2 05/30/2020 Active Lotrisone 1%-0.05% topical cream, [RxNorm: 286319] clotrimazole-betamethasone dipropionate topic use as directed apply to genital area bid 30 05/30/2020 Active sertraline 100 mg oral tablet, [RxNorm: 506657] sertraline two po daily 180 019 Active lisinopril 10 mg oral tablet, [RxNorm: 304337] lisinopril one po daily 90 08/13/20 19 Active Linzess 145 mcg oral capsule, [RxNorm: 4237357] linaclotide one po daily prn constipation 90 08/13/2019 Active BD Pen Needle Mini U/F Unknown use as directed for lantus injection 200 2018 Active ibuprofen 800 mg oral tablet, [RxNorm: 915971] ibuprofen one po tid with food 90 06/23/2019 Active Lantus Solostar Pen 100 units/mL subcuta neous solution, [RxNorm: 398580] insulin glargine 14 units sq daily 15 12/18/2018 Active ProAir HFA 90 mcg/inh inhalation aerosol, [RxNorm: 745 752] albuterol two puffs qid prn wheeze 0 06/02/2017 Active Cortisporin-TC otic suspension, [RxNorm: 454496] colistin/neomycin/thonzonium/HC otic 4 gtts into left EAC bid 5 12/15/2015 Active aspirin 81 mg oral tablet, [RxNorm: 619079] aspirin one daily 1 11/17/2015 Active INSURANCE PROVIDERS Payer Name Policy Type P olicy ID Covered Alliance Party ID Policy [employer] Health Insurance [id number] [facility] [id number] THIAGO JULIASARITACAMMIE ASSESSMENTS # Acute pancreatitis (K85.90): # Type II diabetes mellitus poorly controlled (E11.65):# Generalised itching (L29.9): PROBLEMS Problem Problem Status D ate Started Date Resolved Date Inactivated CLOSED FRACTURE OF LUMBAR VERTEBRA WITHO UT SPINAL [SNOMED-CT: 84940141] Active 06-13-2010 NA NA Type II diabetes mellitus poorly control led [SNOMED-CT: 134703936] Active 03-22-2020 NA NA Allergic contact dermatitis of male melissa isamar [SNOMED-CT: 741544332] Active 03-07-2017 NA NA Other genital problems [ICD10: R68.89] Active 03-07-2017 NA NA ROUTINE GENERAL MEDICAL EXAMINATION AT A HEALTH CARE FACILITY [SNOMED-CT: 319497367] Active 11-02-2012 NA NA Other specified vaccination [ICD10: Z23] Active 05-15-2016 NA NA DIABETES MELLITUS WITHOUT MENTION OF COM PLICATION [SNOMED-CT: 545879243] Active 12-20-2009 NA NA HYPERPLASIA OF PROSTATE UNSPECIFIED WITH OUT URINAR [SNOMED-CT: 428591123] Active 12-20-2009 NA NA UNSPECIFIED DISORDER OF SKIN AND SUBCUTA NEOUS TISS [SNOMED-CT: 10269127] Active 12-20-2009 NA NA Balanitis [SNOMED-CT: 97751885] Active 05-30-2020 NA NA Bronchospasm [SNOMED-CT: 6679358] Active 09-04-2016 NA NA Generalised itching [SNOMED-CT: 520226992] Active 08-15-2020 NA NA Other hyperlipidemia [ICD10: E78.49] Activ e 07-20-2018 NA NA Penile cellulitis/abscess/boil [SNOMED-CT: 383042467] Active 01-15-2017 NA NA Other constipation [ICD9: 564.09] Active 01-18-2015 NA NA UNSPECIFIED CATARACT [SNOMED-CT: 696590133] Active 01-26-2010 NA NA UNSPECIFIED SLEEP APNEA [SNOMED-CT: 74765175] Active 01-26-2010 NA NA Acute pancreatitis [SNOMED-CT: 764598123] Active 08-14-2020 NA NA Contusion of lower back and pelvis, init ial encounter [ICD10: S30.0XXA] Active 12-14-2018 NA NA Exogenous hyperlipidemia [SNOMED-CT: 256183435] Active 09-27-2015 NA NA Otitis externa [SNOMED-CT: 0549267] Active 12-15-2015 NA NA Impacted cerumen [SNOMED-CT: 37883432] Active 12-15-2015 NA NA INSOMNIA UNSPECIFIED [SNOMED-CT: 966211918] Active 06-09-2013 NA NA ANXIETY STATE UNSPECIFIED [SNOMED-CT: 067532178] Active 06-09-2013 NA NA NEED FOR PROPHYLACTIC VACCINATION AND IN OCULATION AGAINST INFLUENZA [SNOMED-CT: 869760871] Active 06-19-2011 NA NA Primary atypical interstitial pneumonia [SNOMED-CT: 35 616782] Active 09-04-2016 NA NA Viral gastroenteritis [SNOMED-CT: 444537958] Active 12-26-2017 NA NA Cat bite - wound [SNOMED-CT: 110078008] Active 12-26-2017 NA NA Cat bite [SNOMED-CT: 838112638] Active 12-26-2017 NA NA Cat bite [SNOMED-CT: 942083124] Active 12-26-2017 NA NA BACKACHE UNSPECIFIED [SNOMED-CT: 887157797] Active 12-14-2010 NA NA PAIN IN JOINT INVOLVING SHOULDER REGION [SNOMED-CT: 734226133] Active 12-26-2010 NA NA DIABETES MELLITUS WITHOUT MENTION OF COM PLICATION [SNOMED-CT: 822843493] Active 05-19-2009 NA NA UNSPECIFIED ESSENTIAL HYPERTENSION [SNOMED-CT: 4668475 0] Active 05-19-2009 NA NA CONTACT DERMATITIS AND OTHER ECZEMA UNSP ECIFIED CA [SNOMED-CT: 245795448] Active 05-19-2009 NA NA Acute rhinosinusitis [SNOMED-CT: 016127894] Active 09-08-2019 NA NA Upper respiratory infection [SNOMED-CT: 88220169] Active 09-08-2019 NA NA LUMBAGO [SNOMED-CT: 895787914] Active 10-23-2011 NA NA SPRAIN OF UNSPECIFIED SITE OF SHOULDER A ND UPPER A [SNOMED-CT: 834451834] Active 06-28-2009 NA NA Back pain [SNOMED-CT: 354459600] Active 08-11-2015 NA NA Dysuria-frequency syndrome [SNOMED-CT: 1796201] Active 08-11-2015 NA NA Arthropathy of left shoulder [SNOMED-CT: 4679595176602 9103] Active 06-03-2018 NA NA Pain in left foot [SNOMED-CT: 895202572322854] Active 06-18-2019 NA NA DIABETES WITH RENAL MANIFESTATIONS TYPE II OR UNSPECIFIED TYPE NOT STATED UNCONTROLLED [SNOMED-CT: 188935326] Active 09-14-2014 NA NA CHRONIC KIDNEY DISEASE STAGE II (MILD) [SNOMED-CT: 431 014933] Active 09-14-2014 NA NA IMPOTENCE OF ORGANIC ORIGIN [SNOMED-CT: 334638872] Active 09-18-2009 NA NA PROCEDURES Procedure Date CPT Code Procedure 08/15/2020 08:57:07 60489 Office or other outpatient visit for the [...] moderate severity. Physicians typically spend 15 minutes ozkp-pn-dsat with the patient and/or family. 08/14/2020 09:42:50 43042 Transitional Care Management Services with the following required elements: Communication (direct contact, telephone, electronic) with the patient and/or caregiver within 2 business days of discharge Medical decision making of high complexity during the service period Phyd-ax-yngm visit, within 7 calendar days of discharge 08/14/2020 09:42:50 [id number] Eligible clinician attests to documenting in the medical record they obtained, updated, or reviewed the patient's current medications 05/30/2020 13:09:49 76020 Office or other outpatient visit for the [...] moderate severity. Physicians typically spend 15 minutes ierp-ap-ohjp with the patient and/or family. 03/22/2020 09:10:00 93111 Office or other outpatient visit for the [...] moderate severity. Physicians typically spend 15 minutes rpms-yy-fqhv with the patient and/or family. 03/15/2020 12:24:05 09636 Office or other outpatient visit for the evaluation and management of an established patient, that may not require the presence of a physician. Usually, the presenting problem(s) are minimal. Typically, 5 minutes are spent performing or supervising these services. 03/15/2020 12:24:05 70225 Hemoglobin; glycosylated (A1C) by device cleared by FDA for home use 03/15/2020 12:24:05 3046F Most recent hemoglobin A1c level greater than 9.0% (DM) 09/08/2019 08:19:29 14609 Office or other outpatient visit for the [...] high severity. Physicians typically spend 25 minutes hsaq-nc-ipqw with the patient and/or family. 09/08/2019 08:19:29 79213 Hemoglobin; glycosylated (A1C) by device cleared by FDA for home use 09/08/2019 08:19:29 3045F Most recent hemoglobin A1c (HbA1c) level 7.0-9.0% (DM) 08/13/2019 13:55:58 [id number] ANNUAL WELLNESS VISIT, SUBSEQUENT 08/13/2019 13:55:58 20390 Hemoglobin; glycosylated (A1C) by device cleared by FDA for home use 08/13/2019 13:55:58 52760 Influenza virus vaccine, quadrivalent (ccIIV4), derived from cell cultures, subunit, preservative and antibiotic free, 0.5 mL dosage, for intramuscular use 08/13/2019 13:55:58 G0008 ADMINISTRATION OF FLU VACCINE (V04.81) 08/13/2019 13:55:58 2021F Dilated retinal eye exam with interpretation by an registered nursing professor or cow tender documented and reviewed (DM) 08/13/2019 13:55:58 G8427 Eligible clinician attests to documenting in the medical record they obtained, updated, or reviewed the patient's current medications 08/13/2019 13:55:58 3017F Colorectal cancer screening results documented and reviewed (PV) 08/13/2019 13:55:58 1036F Current tobacco non-user (CAD, CAP, COPD, PV) (DM) (IBD) 06/18/2019 09:23:34 35090 Office or other outpatient visit for the [...] high severity. Physicians typically spend 25 minutes bgxb-wj-fssx with the patient and/or family. 06/18/2019 09:23:34 93834 Hemoglobin; glycosylated (A1C) by device cleared by FDA for home use 06/18/2019 09:23:34 3045F Most recent hemoglobin A1c (HbA1c) level 7.0-9.0% (DM) 03/24/2019 08:14:04 28252 Office or other outpatient visit for the [...] high severity. Physicians typically spend 25 minutes hkkp-sx-twan with the patient and/or family. 03/24/2019 08:14:04 61435 Hemoglobin; glycosylated (A1C) by device cleared by FDA for home use 03/24/2019 08:14:04 3045F Most recent hemoglobin A1c (HbA1c) level 7.0-9.0% (DM) 03/24/2019 08:14:04 G8427 Eligible clinician attests to documenting in the medical record they obtained, updated, or reviewed the patient's current medications 03/23/2019 11:45:37 3017F Colorectal cancer screening results documented and reviewed (PV) 12/14/2018 08:01:40 54995 Office or other outpatient visit for the [...] high severity. Physicians typically spend 25 minutes cjgs-jt-rvrr with the patient and/or family. 12/14/2018 08:01:40 77700 Collection of venous blood by venipuncture 12/14/2018 08:01:40 17296 Hemoglobin; glycosylated (A1C) by device cleared by FDA for home use 12/14/2018 08:01:40 3046F Most recent hemoglobin A1c level greater than 9.0% (DM) 12/14/2018 08:01:40 G8427 Eligible clinician attests to documenting in the medical record they obtained, updated, or reviewed the patient's current medications 09/07/2018 08:17:34 02057 Office or other outpatient visit for the evaluation and management of an established patient, that may not require the presence of a physician. Usually, the presenting problem(s) are minimal. Typically, 5 minutes are spent performing or supervising these services. 09/07/2018 08:17:34 57129 Hemoglobin; glycosylated (A1C) by device cleared by FDA for home use 09/07/2018 08:17:34 3044F Most recent hemoglobin A1c (HbA1c) level less than 7.0% (DM) 07/20/2018 13:54:05 39011 Periodic comprehensive preventive medicine reevaluation and management of an individual including an age and gender appropriate history, examination, counseling/anticipatory guidance/risk factor reduction interventions, and the ordering of laboratory/diagnostic procedures, established patient; 65 years and older 07/20/2018 13:54:05 20313 Hemoglobin; glycosylated (A1C) by device cleared by FDA for home use 07/20/2018 13:54:05 G8427 Eligible clinician attests to documenting in the medical record they obtained, updated, or reviewed the patient's current medications 07/20/2018 13:54:05 1036F Current tobacco non-user (CAD, CAP, COPD, PV) (DM) (IBD) 07/20/2018 13:54:05 3044F Most recent hemoglobin A1c (HbA1c) level less than 7.0% (DM) 06/03/2018 08:23:02 96074 Office or other outpatient visit for the [...] high severity. Physicians typically spend 25 minutes wxpg-ta-bckv with the patient and/or family. 06/03/2018 08:23:02 72562 Hemoglobin; glycosylated (A1C) by device cleared by FDA for home use 06/03/2018 08:23:02 3045F Most recent hemoglobin A1c (HbA1c) level 7.0-9.0% (DM) 03/27/2018 08:56:44 88146 Office or other outpatient visit for the [...] moderate severity. Physicians typically spend 15 minutes gqoq-hk-tbvs with the patient and/or family. 03/27/2018 08:56:44 3045F Most recent hemoglobin A1c (HbA1c) level 7.0-9.0% (DM) 03/27/2018 08:56:44 41498 Hemoglobin; glycosylated (A1C) by device cleared by FDA for home use 03/27/2018 08:56:44 G8427 Eligible clinician attests to documenting in the medical record they obtained, updated, or reviewed the patient's current medications 12/26/2017 08:55:27 49965 Office or other outpatient visit for the [...] high severity. Physicians typically spend 25 minutes inws-sq-skvf with the patient and/or family. 12/26/2017 08:55:27 3045F Most recent hemoglobin A1c (HbA1c) level 7.0-9.0% (DM) 12/26/2017 08:55:27 81719 Hemoglobin; glycosylated (A1C) by device cleared by FDA for home use 12/26/2017 08:55:27 1036F Current tobacco non-user (CAD, CAP, COPD, PV) (DM) (IBD) 12/26/2017 08:55:27 G8427 Eligible clinician attests to documenting in the medical record they obtained, updated, or reviewed the patient's current medications 12/26/2017 08:55:27 2021F Dilated retinal eye exam with interpretation by an registered nursing professor or cow tender documented and reviewed (DM) 09/24/2017 08:27:29 87799 Office or other outpatient visit for the [...] high severity. Physicians typically spend 25 minutes zsqf-bb-lywt with the patient and/or family. 09/24/2017 08:27:29 51577 Hemoglobin; glycosylated (A1C) by device cleared by FDA for home use 09/24/2017 08:27:29 3045F Most recent hemoglobin A1c (HbA1c) level 7.0-9.0% (DM) 09/24/2017 08:27:29 1036F Current tobacco non-user (CAD, CAP, COPD, PV) (DM) (IBD) 06/02/2017 08:22:37 84228 Periodic comprehensive preventive medicine reevaluation and management [...] CAP, COPD, PV) (DM) (IBD) 06/02/2017 08:22:37 00281 Hemoglobin; glycosylated (A1C) by device cleared by FDA for home use 03/07/2017 09:18:02 96511 Office or other outpatient visit for the [...] high severity. Physicians typically spend 25 minutes xvry-pq-khvz with the patient and/or family. 03/07/2017 09:18:02 58875 Hemoglobin; glycosylated (A1C) by device cleared by FDA for home use 01/15/2017 08:13:41 55956 Office or other outpatient visit for the [...] high severity. Physicians typically spend 25 minutes hbhu-fl-yzic with the patient and/or family. 11/11/2016 09:37:13 35015 Hemoglobin; glycosylated (A1C) by device cleared by FDA for home use 11/06/2016 08:26:32 68551 Office or other outpatient visit for the [...] moderate severity. Physicians typically spend 15 minutes pyso-dr-whrb with the patient and/or family. 09/04/2016 09:23:52 37323 Office or other outpatient visit for the [...] moderate severity. Physicians typically spend 15 minutes faqu-we-ivzs with the patient and/or family. 07/10/2016 08:21:01 99367 Office or other outpatient visit for the [...] high severity. Physicians typically spend 25 minutes gmsp-bg-oqxi with the patient and/or family. 07/10/2016 08:21:01 23980 Hemoglobin; glycosylated (A1C) by device cleared by FDA for home use 05/15/2016 08:27:09 34378 Office or other outpatient visit for the [...] moderate severity. Physicians typically spend 15 minutes nusx-je-fvis with the patient and/or family. 05/15/2016 08:27:09 03378 Hemoglobin; glycosylated (A1C) by device cleared by FDA for home use 05/15/2016 08:27:09 G0008 ADMINISTRATION OF FLU VACCINE (V04.81) 05/15/2016 08:27:09 Q2037 FLUVRIN 03/18/2016 08:09:18 30593 Office or other outpatient visit for the [...] high severity. Physicians typically spend 25 minutes triw-vm-nhed with the patient and/or family. 01/22/2016 08:23:52 09137 Collection of venous blood by venipuncture 01/22/2016 08:23:52 81092 Office or other outpatient visit for the [...] high severity. Physicians typically spend 25 minutes xipm-ih-llnw with the patient and/or family. 12/15/2015 12:17:35 87905 Removal impacted cerumen (separate procedure), 1 or both ears 12/15/2015 12:17:35 44256 Office or other outpatient visit for the [...] moderate severity. Physicians typically spend 15 minutes gyof-rd-pzxo with the patient and/or family. 11/17/2015 08:15:21 06633 Collection of venous blood by venipuncture 11/17/2015 08:15:21 52664 Office or other outpatient visit for the [...] high severity. Physicians typically spend 40 minutes cwme-yj-dvte with the patient and/or family. 11/17/2015 08:15:21 00600 Hemoglobin; glycosylated (A1C) by device cleared by FDA for home use 09/27/2015 08:29:20 92385 Periodic comprehensive preventive medicine reevaluation and management of an individual including an age and gender appropriate history, examination, counseling/anticipatory guidance/risk factor reduction interventions, and the ordering of laboratory/diagnostic procedures, established patient; 40-64 years 09/27/2015 08:29:20 45956 Collection of venous blood by venipuncture 09/27/2015 08:29:20 15803 Hemoglobin; glycosylated (A1C) by device cleared by FDA for home use 08/11/2015 08:14:29 33463 Office or other outpatient visit for the [...] moderate severity. Physicians typically spend 15 minutes qsgb-ez-qqlb with the patient and/or family. 06/19/2015 08:27:11 00743 Office or other outpatient visit for the [...] moderate severity. Physicians typically spend 15 minutes nply-fu-knux with the patient and/or family. 04/26/2015 08:20:21 54457 Office or other outpatient visit for the [...] moderate severity. Physicians typically spend 15 minutes ebut-ou-nurp with the patient and/or family. 04/26/2015 08:20:21 73426 Hemoglobin; glycosylated (A1C) by device cleared by FDA for home use 01/18/2015 08:11:52 90339 Office or other outpatient visit for the [...] moderate severity. Physicians typically spend 15 minutes ihaa-ll-rusr with the patient and/or family. 11/30/2014 08:15:54 92816 Office or other outpatient visit for the [...] high severity. Physicians typically spend 25 minutes tdzs-ed-kbiy with the patient and/or family. 11/30/2014 08:15:54 84920 Collection of venous blood by venipuncture 11/30/2014 08:15:54 80525 Hemoglobin; glycosylated (A1C) by device cleared by FDA for home use 10/19/2014 00:00:00 66870 Collection of venous blood by venipuncture 10/19/2014 00:00:00 14282 Office or other outpatient visit for the [...] moderate severity. Physicians typically spend 15 minutes gvkd-sq-zjuy with the patient and/or family. 09/16/2014 00:00:00 35889 Office or other outpatient visit for the [...] moderate severity. Physicians typically spend 15 minutes pxil-dc-vuej with the patient and/or family. 09/14/2014 00:00:00 68920 Office or other outpatient visit for the [...] moderate severity. Physicians typically spend 15 minutes fwnb-ad-nmds with the patient and/or family. 08/22/2014 15:40:11 00989 INFLUENZA VACCINATION 08/22/2014 15:40:11 22083 Periodic comprehensive preventive medicine reevaluation and management of an individual including an age and gender appropriate history, examination, counseling/anticipatory guidance/risk factor reduction interventions, and the ordering of laboratory/diagnostic procedures, established patient; 40-64 years 08/22/2014 15:40:11 01336 Collection of venous blood by venipuncture 08/22/2014 15:40:11 Q2037 FLUVRIN 05/09/2014 00:00:00 80759 Office or other outpatient visit for the [...] moderate severity. Physicians typically spend 15 minutes jljs-hz-tniy with the patient and/or family. 05/09/2014 00:00:00 77924 Hemoglobin; glycosylated (A1C) by device cleared by FDA for home use 03/16/2014 00:00:00 39718 Office or other outpatient visit for the [...] high severity. Physicians typically spend 25 minutes kbzu-gx-jizc with the patient and/or family. 03/16/2014 00:00:00 11968 Hemoglobin; glycosylated (A1C) by device cleared by FDA for home use 11/05/2013 00:00:00 36385 Office or other outpatient visit for the [...] moderate severity. Physicians typically spend 15 minutes bcgf-pe-kwjg with the patient and/or family. 11/05/2013 00:00:00 20278 Collection of venous blood by venipuncture 11/05/2013 00:00:00 38035 Hemoglobin; glycosylated (A1C) by device cleared by FDA for home use 06/11/2013 00:00:00 73196 Periodic comprehensive preventive medicine reevaluation and management of an individual including an age and gender appropriate history, examination, counseling/anticipatory guidance/risk factor reduction interventions, and the ordering of laboratory/diagnostic procedures, established patient; 40-64 years 06/11/2013 00:00:00 52971 Hemoglobin; glycosylated (A1C) by device cleared by FDA for home use 06/09/2013 08:31:54 22223 Office or other outpatient visit for the [...] moderate severity. Physicians typically spend 15 minutes ldfb-da-wzel with the patient and/or family. 02/17/2013 08:29:32 09674 Office or other outpatient visit for the [...] moderate severity. Physicians typically spend 15 minutes roep-da-fvwb with the patient and/or family. 02/17/2013 08:29:32 50411 Collection of venous blood by venipuncture 02/17/2013 08:29:32 64458 Hemoglobin; glycosylated (A1C) by device cleared by FDA for home use 11/02/2012 08:13:33 32450 Periodic comprehensive preventive medicine reevaluation and management of an individual including an age and gender appropriate history, examination, counseling/anticipatory guidance/risk factor reduction interventions, and the ordering of laboratory/diagnostic procedures, established patient; 40-64 years 11/02/2012 08:13:33 77588 Hemoglobin; glycosylated (A1C) by device cleared by FDA for home use 08/28/2012 08:54:25 72388 Office or other outpatient visit for the [...] moderate severity. Physicians typically spend 15 minutes tvko-vv-dbkl with the patient and/or family. 08/05/2012 11:43:02 25175 Office or other outpatient visit for the [...] moderate severity. Physicians typically spend 15 minutes ezoz-vf-trvj with the patient and/or family. 08/05/2012 11:43:02 43524 Hemoglobin; glycosylated (A1C) by device cleared by FDA for home use 02/26/2012 08:27:00 08331 Collection of venous blood by venipuncture 02/26/2012 08:27:00 64691 Office or other outpatient visit for the [...] high severity. Physicians typically spend 25 minutes pzlm-tr-nnkn with the patient and/or family. 10/23/2011 08:31:03 20373 Office or other outpatient visit for the [...] moderate severity. Physicians typically spend 15 minutes vpdd-cf-xxxd with the patient and/or family. 10/23/2011 08:31:03 37236 Hemoglobin; glycosylated (A1C) by device cleared by FDA for home use 08/21/2011 08:26:48 62471 Collection of venous blood by venipuncture 08/21/2011 08:26:48 92137 Office or other outpatient visit for the [...] moderate severity. Physicians typically spend 15 minutes mcea-tl-zwxb with the patient and/or family. 06/19/2011 08:43:09 11263 INFLUENZA VACCINATION 06/19/2011 08:43:09 51287 Collection of venous blood by venipuncture 06/19/2011 08:43:09 98714 Immunization administration (includes percutaneous, intradermal, subcutaneous, or intramuscular injections); one vaccine (single or combination vaccine/toxoid) 06/19/2011 08:43:09 15331 Office or other outpatient visit for the [...] high severity. Physicians typically spend 25 minutes ckdt-zn-hxwa with the patient and/or family. 03/08/2011 08:41:01 18903 Office or other outpatient visit for the [...] high severity. Physicians typically spend 25 minutes ivdl-my-eynq with the patient and/or family. 12/26/2010 08:18:16 65507 Collection of venous blood by venipuncture 12/26/2010 08:18:16 65959 Office or other outpatient visit for the [...] moderate severity. Physicians typically spend 15 minutes sxtn-ts-mbxa with the patient and/or family. 12/14/2010 08:19:33 41440 Office or other outpatient visit for the [...] high severity. Physicians typically spend 25 minutes wnff-ha-tukn with the patient and/or family. 09/24/2010 08:30:35 45664 Office or other outpatient visit for the [...] high severity. Physicians typically spend 25 minutes rqkv-wn-dbxe with the patient and/or family. 08/29/2010 00:00:00 33179 Office or other outpatient visit for the [...] high severity. Physicians typically spend 25 minutes dvax-gq-wkmu with the patient and/or family. 06/27/2010 00:00:00 83655 Office or other outpatient visit for the [...] high severity. Physicians typically spend 25 minutes tvoc-xr-xguo with the patient and/or family. 06/27/2010 00:00:00 G8553 AT LEASTONE PRESCRIPTION CREATED DURING THE ENCOUNTER WAS GENERATED AND TRANSMITTED ELECTRONICALLY USING A [employer] SYSTEM 06/27/2010 00:00:00 66736 Collection of venous blood by venipuncture 06/13/2010 00:00:00 20267 Office or other outpatient visit for the [...] moderate severity. Physicians typically spend 15 minutes eoje-bl-hsav with the patient and/or family. 03/23/2010 00:00:00 00781 Office or other outpatient visit for the [...] high severity. Physicians typically spend 25 minutes qwyx-vh-uunm with the patient and/or family. 03/23/2010 00:00:00 46269 Collection of venous blood by venipuncture 01/26/2010 00:00:00 74930 Office or other outpatient visit for the [...] high severity. Physicians typically spend 25 minutes yzei-pk-wrpz with the patient and/or family. 12/20/2009 00:00:00 07090 Collection of venous blood by venipuncture 12/20/2009 00:00:00 46192 Office or other outpatient visit for the [...] moderate severity. Physicians typically spend 15 minutes ylyi-iu-tipd with the patient and/or family. 09/18/2009 00:00:00 14925 Office or other outpatient visit for the [...] high severity. Physicians typically spend 25 minutes mnox-qe-xdho with the patient and/or family. 09/18/2009 00:00:00 11913 Collection of venous blood by venipuncture 06/28/2009 00:00:00 75731 Office or other outpatient visit for the [...] high severity. Physicians typically spend 25 minutes pqhv-cg-uhmi with the patient and/or family. 06/16/2009 00:00:00 56958 Office or other outpatient visit for the [...] high severity. Physicians typically spend 25 minutes uqov-sh-aqvv with the patient and/or family. 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 [id number] N/A N/A 04/20/2016 13:07:00 HEMOGLOBIN A1c [...] Observed Smoking Status Former smoker, [SNOME D-CT: [id number]], 75.00 pk yrs/20.00 yrs quit 11/30/2014 - 11/30/2014 TREATMENT PLAN Encounter Date [facility] 08/15/2020 08:57:07 PRESCRIBE: hydrOXYzine hydrochloride 25 mg [...] # 30, RF: 0. (Transmitted by Colleen Newton[place]DO joelle) Date Prescribed: 09/08/2019 PRESCRIBE: metFORMIN 500 mg oral tablet, one po bid, RF: 3. REMOVED from Current Meds: Trulicity Pen 1.5 mg/0.5 mL subcutaneous solution, use one dose weekly as directed, # 18, RF: 3. (Transmitted by Colleen Newton[place]DO joelle) Date Prescribed: 08/13/2019 ADDED Current Meds: [...] # 30, RF: 0. (Transmitted by Colleen uHang DO) ORDERED/ADVISED: Order Date 05-30-2020 - [place] [...] scheduled for a telehealth visit to [facility] on 03/22/2020. 03/15/2020 12:24:05 HgA1c is 10.0% Appointment scheduled for a telehealth visit to [facility] on 03/22/2020. 10/25/2019 08:14:07 Plan printed [...] the Left Deltoid (Mfg: SEQIRUS lot no. [id number], expires 02/29/2020) ORDERED/ADVISED: Order Date 08-13-2019 - [...] constipation, # 90, RF: 3. (Transmitted by Cloleen Huang, DO) PRESCRIBE: BD Pen Needle Mini [...] the Left Deltoid (Mfg: SEQIRUS lot no. [id number], expires 02/29/2020) ORDERED/ADVISED: Order Date 08-13-2019 - [...] the Left Deltoid (Mfg: SEQIRUS lot no. [id number], expires 02/29/2020) ORDERED/ADVISED: Order Date 08-13-2019 - [...] Flakito Estes MD You can download a RFMicron melba to your computer and get these books on [employer]. Watch the movie "the magic pill" documentary on [employer] and watch it Counseling and coordination of [...] Flakito Estes MD You can download a RFMicron melba to your computer and get these books on [employer]. Watch the movie "the magic pill" documentary on [employer] and watch it 06/18/2019 09:23:34 Plan printed and provided to patient: PRESCRIBE: ibuprofen 800 mg oral tablet, one po tid with food, # 90, RF: 1. (Transmitted by Colleen Huang DO) Barber christopher PROVIDED HM: CDSMP Given: "the obesity code", " the diabetes code", and "quide to fasting" by Flakito Estes MD You can download a RFMicron melba to your computer and get these books on [employer]. Watch the movie "the magic pill" documentary on [employer] and watch it 03/24/2019 08:14:04 Plan printed and provided to patient: PROVIDED HM: CDSMP Given: "the obesity code", " the diabetes code", and "quide to fasting" by Flakito Estes MD You can download a RFMicron melba to your [employer] for free. then you can go to [employer] and download books at a reduced jean. [...] for free. then you can go to [employer] and download books at a reduced jean. [...] for free. then you can go to [employer] and download books at a reduced jean. [...] # 360, RF: 2. (Transmitted by Colleen [place], DO) PRESCRIBE: metFORMIN 500 mg oral tablet, [...] # 5, RF: 5. (Transmitted by Colleen [place], DO) PRESCRIBE: Lantus Solostar Pen 100 units/mL subcutaneous solution, 14 units sq daily, # 5, RF: 0. PRESCRIBE: metFORMIN 500 mg oral tablet, two po bid, # 360, RF: 2. (Transmitted by Colleen [place], DO) PRESCRIBE: metFORMIN 500 mg oral tablet, [...] # 200, RF: 3. (Transmitted by Colleen [place], DO) PRESCRIBE: Lantus Solostar Pen 100 units/mL subcutaneous solution, 14 units sq daily, # 5, RF: 5. (Transmitted by Colleen Reina, DO) PRESCRIBE: Lantus Solostar Pen 100 units/mL subcutaneous solution, 14 units sq daily, # 5, RF: 0. PRESCRIBE: metFORMIN 500 mg oral tablet, two po bid, # 360, RF: 2. 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 (Transmitted by Colleen Reina, [employer]) PRESCRIBE: sertraline 100 mg oral tablet, one po daily, # 90, RF: 3. (Transmitted by Colleen [place], [employer]) PRESCRIBE: metFORMIN 500 mg oral tablet, one po bid pc, # 180, RF: 3. (Trans mitted by Colleen Huang DO) PRESCRIBE: lisinopril 10 mg oral tablet, one po daily, # 90, RF: 3. (Transmitted by Colleen Reina, DO) PRESCRIBE: Linzess 145 mcg oral capsule, one po daily prn constipation, # 90, RF: 3. (Transmitted by Colleen [place], DO) PRESCRIBE: atorvastatin 10 mg oral tablet, one po daily, # 90, RF: 3. (Transmitted by [employer]Met[employer]ard, [employer]) CHANGED Current Meds: Trulicity Pen 1.5 mg/0.5 mL subcutaneous solution REMOVED from Current Meds: Lantus Solostar Pen 100 units/mL subcutaneous solution, 14 units sq daily, # 5, RF: 0. (Transmitted by [employer], DO) Date Prescribed: 06/26/2018 REMOVED from Current [...] directed, # 12, RF: 3. (Transmitted by Colelen [place], [employer]) PRESCRIBE: sertraline 100 mg oral tablet, one po daily, # 90, RF: 3. (Transmitted by QualMetrixjoelle [employer]) PRESCRIBE: metFORMIN 500 mg oral tablet, one po bid pc, # 180, RF: 3. (Trans mitted by Colleen ReinaDO joelle) PRESCRIBE: lisinopril 10 mg oral tablet, one po daily, # 90, RF: 3. (Transmitted by ColleenLost Property HeavenDO joelle) PRESCRIBE: Linzess 145 mcg oral capsule, one po daily prn constipation, # 90, RF: 3. (Transmitted by Colleen Reina, TargAnox) PRESCRIBE: atorvastatin 10 mg oral tablet, one po daily, # 90, RF: 3. (Transmitted by QualMetrixDO joelle) CHANGED Current Meds: Trulicity Pen 1.5 mg/0.5 mL subcutaneous solution REMOVED from Current Meds: Lantus Solostar Pen 100 units/mL subcutaneous solution, 14 units sq daily, # 5, RF: 0. (Transmitted by QualMetrixDO joelle) Date Prescribed: 06/26/2018 REMOVED from Current [...] bid, # 14, RF: 0. (Transmitted by QualMetrixard, TargAnox) Date Prescribed: 12/26/2017 Motion is lotion If [...] bid, # 14, RF: 0. (Transmitted by [facility], TargAnox) Date Prescribed: 12/26/2017 Motion is lotion If it hurts don't do it. Ibuprofen or aleve PROVIDED HM: Screening for Lung Cancer Given: Quit 20 years 06/03/2018 08:23:02 Plan printed and provided to patient: REMOVED from Current Meds: Augmentin 875 mg-125 mg oral tablet, one po bid, # 14, RF: 0. (Transmitted by QualMetrixard, TargAnox) Date Prescribed: 12/26/2017 Motion is lotion If [...] # 1, RF: 3. (Transmitted by Colleen Huagn, DO) PRESCRIBE: metFORMIN 500 mg oral tablet, [...] diabetes related complication....14% decrease in risk of MN.....12%decrease risk of stroke...and a 37% decrease risk [...] we have to work with? Time/Travel/Tastes/Treatments?? Arrange: Multiple Resaw Operator? www.eatright.org Handle Machine Operator?www.diabeteseducator.org Pharmacy/Pharmacy benefits Literature? Recipes Diabetes [place] www.diabetes.org www.ncbde.org www.diabeeseducator.org/deap www.ndep.nih.gov www.diabetes.org www.learningaboutdiabetes.org www.diabeticconnect.com www.[place].com www.diabeteswhattMusicNownoAnafocus.Teak www.peersforprogress.org [place] Read about tanner [...] diabetes related complication....14% decrease in risk of MN.....12%decrease risk of stroke...and a 37% decrease risk [...] we have to work with? Time/Travel/Tastes/Treatments?? Arrange: Multiple Resaw Operator? www.eatright.org Handle Machine Operator?www.diabeteseducator.org Pharmacy/Pharmacy benefits Literature? Recipes Diabetes [place] www.diabetes.org www.ncbde.org www.diabeeseducator.org/deap www.ndep.nih.gov www.diabetes.org www.learningaboutdiabetes.org www.diabeticconnect.com www.whatoknow.com www.diabeteswhattoknow.com www.peersforprogress.org [place] Read about tanner 06/02/2017 08:22:37 Plan printed and provided to patient: PRESCRIBE: sertraline 100 mg oral tablet, one po daily, # 90, RF: 3. (Transmitted by Colleen Huang DO) PRESCRIBE: ProAir HFA 90 mcg/inh inhalation aerosol, two puffs qid prn wheeze, # 1, RF: 3. (Transmitted by Colleen [place], DO) PRESCRIBE: metFORMIN 500 mg oral tablet, one po bid pc, # 180, RF: 3. (Transmitted by QualMetrixard, DO) PRESCRIBE: lisinopril 10 mg oral tablet, one po daily, # 90, RF: 3. (Transmitted by QualMetrixard, DO) PRESCRIBE: Linzess 145 mcg oral capsule, one po daily prn constipation, # 90, RF: 3. (Transmitted by QualMetrixard, DO) PRESCRIBE: Lantus Solostar Pen 100 units/mL subcutaneous solution, 25 units hs daily, # 5, RF: 5. (Transmitted by QualMetrixard, DO) PRESCRIBE: glipiZIDE 10 mg oral tablet, one po daily, # 90, RF: 3. (Transmitted by QualMetrixard, DO) PRESCRIBE: BD Pen Needle Mini U/F, use as directed for lantus injection, # 100, RF: 3. (Transmitted by QualMetrixard, DO) PRESCRIBE: atorvastatin 10 mg oral tablet, one po daily, # 90, RF: 3. (Transmitted by QualMetrixard, DO) He is walking at least a [...] diabetes related complication....14% decrease in risk of MN.....12%decrease risk of stroke...and a 37% decrease risk [...] we have to work with? Time/Travel/Tastes/Treatments?? Arrange: Multiple Resaw Operator? www.eatright.org Handle Machine Operator?www.diabeteseducator.org Pharmacy/Pharmacy benefits Literature? Recipes Diabetes [place] www.diabetes.org www.ncbde.org www.diabeeseducator.org/deap www.ndep.nih.gov www.diabetes.org www.learningaboutdiabetes.org www.diabeticconnect.com www.[place] Hengxing GroupnoAnafocus.Teak www.diabeteswhattMusicNownow.com www.peersforprogress.org [place] Read about tanner [...] ICD Codes (M54.9, E11.29, M54.5) ORDERED/ADVISED: - BusceMary coburnore (Urology) ICD Codes (L23.9, R68.89) 03/07/2017 09:18:02 [...] diabetes related complication....14% decrease in risk of MN.....12%decrease risk of stroke...and a 37% decrease risk [...] we have to work with? Time/Travel/Tastes/Treatments?? Arrange: Multiple Resaw Operator? www.eatright.org Handle Machine Operator?www.diabeteseducator.org Pharmacy/Pharmacy benefits Literature? Recipes Diabetes [place] www.diabetes.org www.ncbde.org www.diabeeseducator.org/deap www.ndep.nih.gov www.diabetes.org www.learningaboutdiabetes.org www.diabeticconnect.com www.Gu[place] Hengxing GroupnoAnafocus.Teak www.diabeteswhattoknow.com www.peersforprogress.org [place] PROVIDED HM: [...] diabetes related complication....14% decrease in risk of MN.....12%decrease risk of stroke...and a 37% decrease risk [...] we have to work with? Time/Travel/Tastes/Treatments?? Arrange: Multiple Resaw Operator? www.eatright.org Handle Machine Operator?www.diabeteseducator.org Pharmacy/Pharmacy benefits Literature? Recipes Diabetes [place] www.diabetes.org www.ncbde.org www.diabeeseducator.org/deap www.ndep.nih.gov www.diabetes.org www.learningaboutdiabetes.org www.diabeticconnect.com www.whatMusicNownow.com www.diabeteswhattoknow.com www.peersforprogress.org [place] PROVIDED HM: [...] diabetes related complication....14% decrease in risk of MN.....12%decrease risk of stroke...and a 37% decrease risk [...] we have to work with? Time/Travel/Tastes/Treatments?? Arrange: Multiple Resaw Operator? www.eatright.org Handle Machine Operator?www.diabeteseducator.org Pharmacy/Pharmacy benefits Literature? Recipes Diabetes [place] www.diabetes.org www.ncbde.org www.diabeeseducator.org/deap www.ndep.nih.gov www.diabetes.org www.learningaboutdiabetes.org www.diabeticconnect.com www.whatMusicNownow.Teak www.diabeteswhattMusicNownow.com www.peersforprogress.org [place] PROVIDED HM: Obesity: [...] 60, RF: 0. PROVIDED HM: CDSMP Given: Bownty "Addictocarb Carb" Consider the Mediterranean Diet. Eliminate [...] 60, RF: 0. PROVIDED HM: CDSMP Given: Bownty "Addictocarb Carb" Consider the Mediterranean Diet. Eliminate [...] pain, # 60, RF: 0. PROVIDED HM: Invisible PuppyMP Given: Google "Addictocarb Carb" Consider the Mediterranean [...] support/Move your body/Think positive/Be good to yourself/ [place]....7 behaviors for diabetes self management. 09/04/2016 09:23:52 Plan printed and provided to patient: PRESCRIBE: oxyCODONE-acetaminophen 5 mg-325 mg oral tablet, one po bid prn pain, # 60, RF: 0. PRESCRIBE: ProAir HFA 90 mcg/inh inhalation aerosol, two puffs qid prn wheeze, # 1, RF: 1. (Transmitted by [facility], TargAnox) PRESCRIBE: azithromycin 250 mg oral tablet, two po today and one po daily x 4, # 6, RF: 0. (Transmitted by [facility], TargAnox) ORDERED/ADVISED: - CXR - PA & Lat [...] support/Move your body/Think positive/Be good to yourself/ [place]....7 behaviors for diabetes [...] support/Move your body/Think positive/Be good to yourself/ [place] [employer]....7 behaviors for diabetes [...] the Left Deltoid (Mfg: OTHER lot no. [id number], expires 01/08/2017) PROVIDED HM: Screening for Depression in Adults Given: Not present Percoset script to [facility] 05/15/2016 08:27:09 Plan printed and provided to patient: PROVIDED VACCINATION: 1 dose of Fluvirin, 0.5 mL IM in the Left Deltoid (Mfg: OTHER lot no. [id number], expires 01/08/2017) PROVIDED HM: Screening for Depression in Adults Given: Not present Percoset script to [facility] 05/15/2016 08:27:09 Plan printed and provided to patient: PROVIDED VACCINATION: 1 dose of Fluvirin, 0.5 mL IM in the Left Deltoid (Mfg: OTHER lot no. [id number], exp01/08/2017) PROVIDED HM: Screening for Depression in Adults Given: Not present Percoset script to [facility] 03/18/2016 08:09:18 Plan printed and provided [...] # 5, RF: 3. (Transmitted by Colleen Reina, DO) PRESCRIBE: BD Pen Needle Mini U/F, use as directed for lantus injection, # 100, RF: 3. (Transmitted by QualMetrixard, DO) PRESCRIBE: Linzess 145 mcg oral capsule, one po daily prn constipation, # 90, RF: 3. (Transmitted by QualMetrixard, DO) PRESCRIBE: Zoloft 100 mg oral tablet, one po daily, # 90, RF: 3. (Transmitted by QualMetrixard, DO) PRESCRIBE: metFORMIN 500 mg oral tablet, one po bid pc, # 180, RF: 3. (Transmitted by QualMetrixard, DO) PRESCRIBE: lisinopril 10 mg oral tablet, one po daily, # 90, RF: 3. (Transmitted by QualMetrixard, DO) PRESCRIBE: glipiZIDE 10 mg oral tablet, one po daily, # 90, RF: 3. (Transmitted by QualMetrixard, DO) PRESCRIBE: cholecalciferol 50,000 intl units oral capsule, one po weekly, # 12, RF: 3. (Transmitted by QualMetrixard, DO) PRESCRIBE: atorvastatin 10 mg oral tablet, one po daily, # 90, RF: 3. (Transmitted by QualMetrixard, DO) ORDERED/ADVISED: - CBC with diff (automated) [...] bid, # 5, RF: 0. (Transmitted by ColleenLost Property Heavenard, DO) Increase lantus insulin to 24 units [...] 5. (Transmitted by Colleen Huang, ) PRESCRIBE: aspirin 81 mg oral tablet, one [...] the Left Deltoid (Mfg: NOVARTIS lot no. [id number], expires 01/29/2015) ORDERED/ADVISED: - CBC with diff [...] 13:52:33 Instructions printed and provided to patient: CANDY CUTTER MACHINE site consulted prior to scheduled drug prescription. [...] bid prn pain, # 60, RF: NONE. CANDY CUTTER MACHINE site consulted prior to scheduled drug prescription. [...] # 90, RF: 3. (Transmitted by Colleen [place], DO) PROVIDED HM: Recommendations for Testing HgbA1C [...] Ds) ICD9 Codes (250.00, 600.9, 272.4, 401.9) CANDY CUTTER MACHINE site consulted prior to scheduled drug prescription. [...] # 90, RF: 3. (Transmitted by Colleen [place], ) PRESCRIBE: metformin 1000 mg oral tablet, [...] # 180, RF: 3. (Transmitted by Colleen [place], ) DISCONTINUE: cyclobenzaprine 10 mg oral tablet [...] by Colleen Huang DO) All sent to [facility] today and 06/19/11. DISCONTINUE: gabapentin 300 mg [...] ml IM in the L DELTOID (Mfg: Talenz lot no. [id number], expires 02/28/2012) ORDERED/ADVISED: - Urine microalbumin (AODM) [...] PRESCRIBE: Gabapentin 100mg, one or two po [id number] prn back pain, # 180, RF: 5. [...]
--- OUTSIDE RECORDS SUMMARY | 2020-10-17 11:18 | CCD ---
Author Author Colleen Huang DO Organization Colleen Huang DO Address [address] [place], [place] [id number] Care Team Providers Care Gate Operator Name Role Phone Reina GOLDEN MA, Celestine Renteria Unavailable Colleen Huang DO Unavailable Colleen Huang DO PCP ENCOUNTERS Encounter Performer Loca tion Date Acute pancreatitis [SNOMED-CT: 633101393] Dr. Colleen Huang DO 08-14-2020 Type II diabetes mellitus poorly control led [SNOMED-CT: 723754468] Dr. Colleen Huang DO 08-14-2020 Other hyperlipidemia [ICD10: E78.49] Dr. Colleen Huang DO 08-14-2020 Balanitis [SNOMED-CT: 27532457] Dr. Colleen Huang DO 05-30-2020 Type II diabetes mellitus poorly control led [SNOMED-CT: 364199959] Dr. Colleen Huang DO 05-30-2020 Type II diabetes mellitus poorly control led [SNOMED-CT: 424776670] Dr. Colleen Huang DO 03-22-2020 Other hyperlipidemia [ICD10: E78.49] Dr. Colleen Huang DO 03-22-2020 DIABETES MELLITUS WITHOUT MENTION OF COM PLICATION [SNOMED-CT: 535376699] N/A N/A 03-15-2020 Acute rhinosinusitis [SNOMED-CT: 131843932] Dr. Colleen Huang DO 09-08-2019 Upper respiratory infection [SNOMED-CT: 46131731] Dr. Colleen Huang, DO 09-08-2019 DIABETES WITH RENAL MANIFESTATIONS TYPE II OR UNSPECIFIED TYPE NOT STATED UNCONTROLLED [SNOMED-CT: 684178136] Dr. Colleen Huang, DO 08-13-2019 UNSPECIFIED ESSENTIAL HYPERTENSION [SNOMED-CT: 8663268 0] N/A N/A 08-13-2019 ANXIETY STATE UNSPECIFIED [SNOMED-CT: 006007839] Celestine Huang, DO 08-13-2019 CHRONIC KIDNEY DISEASE STAGE II (MILD) [SNOMED-CT: 431 761605] Dr. Colleen Huang, DO 08-13-2019 Other specified vaccination [ICD10: Z23] Celestine Huang, DO 08-13-2019 Pain in left foot [SNOMED-CT: 870258630757221] Dr. Colleen Huang, DO 06-18-2019 DIABETES MELLITUS WITHOUT MENTION OF COM PLICATION [SNOMED-CT: 537348702] Celestine Huang, DO 06-18-2019 DIABETES WITH RENAL MANIFESTATIONS TYPE II OR UNSPECIFIED TYPE NOT STATED UNCONTROLLED [SNOMED-CT: 204600608] Dr. Colleen Huang, DO 03-24-2019 Contusion of lower back and pelvis, init ial encounter [ICD10: S30.0XXA] Dr. Colleen Huang, DO 12-14-2018 DIABETES WITH RENAL MANIFESTATIONS TYPE II OR UNSPECIFIED TYPE NOT STATED UNCONTROLLED [SNOMED-CT: 609026938] Dr. Colleen Huang, DO 12-14-2018 DIABETES MELLITUS WITHOUT MENTION OF COM PLICATION [SNOMED-CT: 606871254] N/A N/A 09-07-2018 DIABETES WITH RENAL MANIFESTATIONS TYPE II OR UNSPECIFIED TYPE NOT STATED UNCONTROLLED [SNOMED-CT: 193490249] Dr. Colleen Huang, DO 07-20-2018 Other hyperlipidemia [ICD10: E78.49] Dr. Colleen Huang, DO 07-20-2018 Back pain [SNOMED-CT: 621524538] Dr. Colleen Huang, DO 06-03-2018 DIABETES WITH RENAL MANIFESTATIONS TYPE II OR UNSPECIFIED TYPE NOT STATED UNCONTROLLED [SNOMED-CT: 648568371] Dr. Colleen Huang, DO 06-03-2018 Arthropathy of left shoulder [SNOMED-CT: 7197379395643 9103] Dr. Colleen Huang, DO 06-03-2018 DIABETES WITH RENAL MANIFESTATIONS TYPE II OR UNSPECIFIED TYPE NOT STATED UNCONTROLLED [SNOMED-CT: 709310545] Dr. Colleen Huang, DO 03-27-2018 Viral gastroenteritis [SNOMED-CT: 447214381] Dr. Colleen Huang, DO 12-26-2017 DIABETES WITH RENAL MANIFESTATIONS TYPE II OR UNSPECIFIED TYPE NOT STATED UNCONTROLLED [SNOMED-CT: 408324586] Dr. Colleen Huang, DO 12-26-2017 Cat bite [SNOMED-CT: 217299816] Dr. Colleen Huang, DO 12-26-2017 DIABETES WITH RENAL MANIFESTATIONS TYPE II OR UNSPECIFIED TYPE NOT STATED UNCONTROLLED [SNOMED-CT: 085788387] Dr. Colleen Huang, DO 09-24-2017 DIABETES MELLITUS WITHOUT MENTION OF COM PLICATION [SNOMED-CT: 135095960] Celestine Huang, DO 09-24-2017 ROUTINE GENERAL MEDICAL EXAMINATION AT A HEALTH CARE FACILITY [SNOMED-CT: 694376312] Celestine Huang, DO 06-02-2017 DIABETES WITH RENAL MANIFESTATIONS TYPE II OR UNSPECIFIED TYPE NOT STATED UNCONTROLLED [SNOMED-CT: 102114913] Dr. Colleen Huang, DO 06-02-2017 Allergic contact dermatitis of male melissa isamar [SNOMED-CT: 713649749] Dr. Colleen Huang, DO 03-07-2017 Other genital problems [ICD10: R68.89] Dr. Colleen Huang, DO 03-07-2017 DIABETES WITH RENAL MANIFESTATIONS TYPE II OR UNSPECIFIED TYPE NOT STATED UNCONTROLLED [SNOMED-CT: 165338274] Dr. Colleen Huang, DO 03-07-2017 Back pain [SNOMED-CT: 932619276] Dr. Colleen Huang, DO 03-07-2017 LUMBAGO [SNOMED-CT: 542281813] JoseA ngel unger Reina Huang, DO 03-07-2017 Penile cellulitis/abscess/boil [SNOMED-CT: 529949192] Dr. Colleen Huang, DO 01-15-2017 DIABETES WITH RENAL MANIFESTATIONS TYPE II OR UNSPECIFIED TYPE NOT STATED UNCONTROLLED [SNOMED-CT: 082517365] Dr. Colleen Huang, DO 01-15-2017 Back pain [SNOMED-CT: 770773665] Dr. Colleen Huang, DO 11-06-2016 DIABETES WITH RENAL MANIFESTATIONS TYPE II OR UNSPECIFIED TYPE NOT STATED UNCONTROLLED [SNOMED-CT: 464490222] Dr. Colleen Huang, DO 11-06-2016 UNSPECIFIED ESSENTIAL HYPERTENSION [SNOMED-CT: 9561324 0] N/A N/A 11-06-2016 Bronchospasm [SNOMED-CT: 5199402] Dr Joe Huang, DO 09-04-2016 Back pain [SNOMED-CT: 844374236] Dr. Colleen Huang, DO 09-04-2016 Primary atypical interstitial pneumonia [SNOMED-CT: 35 534127] Dr. Colleen Huang, DO 09-04-2016 Back pain [SNOMED-CT: 086746969] Dr. Colleen Huang, DO 07-10-2016 DIABETES WITH RENAL MANIFESTATIONS TYPE II OR UNSPECIFIED TYPE NOT STATED UNCONTROLLED [SNOMED-CT: 791891368] Dr. Colleen Huang, DO 07-10-2016 Back pain [SNOMED-CT: 991329002] Dr. Colleen Huang, DO 05-15-2016 CHRONIC KIDNEY DISEASE STAGE II (MILD) [SNOMED-CT: 431 961203] Dr. Colleen Huang, DO 05-15-2016 DIABETES WITH RENAL MANIFESTATIONS TYPE II OR UNSPECIFIED TYPE NOT STATED UNCONTROLLED [SNOMED-CT: 648807800] Dr. Colleen Huang, DO 05-15-2016 LUMBAGO [SNOMED-CT: 552578115] Jose Angel unger Reina Huang, DO 05-15-2016 Other specified vaccination [ICD10: Z23] Celestine Huang, DO 05-15-2016 Back pain [SNOMED-CT: 605223127] Dr. Colleen Huang, DO 03-18-2016 DIABETES WITH RENAL MANIFESTATIONS TYPE II OR UNSPECIFIED TYPE NOT STATED UNCONTROLLED [SNOMED-CT: 682686900] Dr. Colleen Huang, DO 03-18-2016 DIABETES WITH RENAL MANIFESTATIONS TYPE II OR UNSPECIFIED TYPE NOT STATED UNCONTROLLED [SNOMED-CT: 015127180] Dr. Colleen Huang, DO 01-22-2016 Exogenous hyperlipidemia [SNOMED-CT: 957243029] Dr. Colleen Huang, DO 01-22-2016 ANXIETY STATE UNSPECIFIED [SNOMED-CT: 887909619] Celestine Huang, DO 01-22-2016 DIABETES WITH RENAL MANIFESTATIONS TYPE II OR UNSPECIFIED TYPE NOT STATED UNCONTROLLED [SNOMED-CT: 965133143] Dr. Colleen Huang, DO 12-15-2015 Otitis externa [SNOMED-CT: 9696722] Celestine Huang, DO 12-15-2015 Impacted cerumen [SNOMED-CT: 79707195] Celestine Huang, DO 12-15-2015 DIABETES WITH RENAL MANIFESTATIONS TYPE II OR UNSPECIFIED TYPE NOT STATED UNCONTROLLED [SNOMED-CT: 813008914] Dr. Colleen Huang, DO 11-17-2015 Back pain [SNOMED-CT: 670845562] Dr. Colleen Huang, DO 11-17-2015 UNSPECIFIED SLEEP APNEA [SNOMED-CT: 61195177] Celestine Huang, DO 11-17-2015 UNSPECIFIED ESSENTIAL HYPERTENSION [SNOMED-CT: 9673890 0] N/A N/A 11-17-2015 ROUTINE GENERAL MEDICAL EXAMINATION AT A HEALTH CARE FACILITY [SNOMED-CT: 173534768] Celestine Huang, DO 09-27-2015 Back pain [SNOMED-CT: 894121958] Dr. Colleen Huang, DO 08-11-2015 Dysuria-frequency syndrome [SNOMED-CT: 5870015] Dr. Colleen Huang, DO 08-11-2015 LUMBAGO [SNOMED-CT: 605074552] Jose Angel unger Reina Huang, DO 06-19-2015 CLOSED FRACTURE OF LUMBAR VERTEBRA WITHO UT SPINAL [SNOMED-CT: 16611615] Celestine Huang, DO 06-19-2015 DIABETES WITH RENAL MANIFESTATIONS TYPE II OR UNSPECIFIED TYPE NOT STATED UNCONTROLLED [SNOMED-CT: 399978045] Dr. Colleen Huang, DO 06-19-2015 DIABETES WITH RENAL MANIFESTATIONS TYPE II OR UNSPECIFIED TYPE NOT STATED UNCONTROLLED [SNOMED-CT: 792501809] Dr. Colleen Huang, DO 04-26-2015 Back pain [SNOMED-CT: 534198053] Dr. Colleen Huang, DO 04-26-2015 Other constipation [ICD9: 564.09] Dr Joe Huang, DO 01-18-2015 Back pain [SNOMED-CT: 455823650] Dr. Colleen Huang, DO 01-18-2015 DIABETES WITH RENAL MANIFESTATIONS TYPE II OR UNSPECIFIED TYPE NOT STATED UNCONTROLLED [SNOMED-CT: 756760268] Dr. Colleen Huang, DO 11-30-2014 CHRONIC KIDNEY DISEASE STAGE II (MILD) [SNOMED-CT: 431 799426] Dr. Colleen Huang, DO 11-30-2014 UNSPECIFIED ESSENTIAL HYPERTENSION [SNOMED-CT: 6450080 0] N/A N/A 11-30-2014 DIABETES WITH RENAL MANIFESTATIONS TYPE II OR UNSPECIFIED TYPE NOT STATED UNCONTROLLED [SNOMED-CT: 875698012] Dr. Colleen Huang, DO 10-19-2014 CHRONIC KIDNEY DISEASE STAGE II (MILD) [SNOMED-CT: 431 602220] Dr. Colleen Huang, DO 10-19-2014 DIABETES WITH RENAL MANIFESTATIONS TYPE II OR UNSPECIFIED TYPE NOT STATED UNCONTROLLED [SNOMED-CT: 462217319] Dr. Colleen Huang, DO 09-16-2014 DIABETES WITH RENAL MANIFESTATIONS TYPE II OR UNSPECIFIED TYPE NOT STATED UNCONTROLLED [SNOMED-CT: 317612485] Dr. Colleen Huang, DO 09-14-2014 CHRONIC KIDNEY DISEASE STAGE II (MILD) [SNOMED-CT: 431 248936] Dr. Colleen Huang, DO 09-14-2014 ROUTINE GENERAL MEDICAL EXAMINATION AT A HEALTH CARE FACILITY [SNOMED-CT: 750265427] Celestine Huang, DO 08-22-2014 Other specified vaccination [ICD10: Z23] Celestine Huang, DO 08-22-2014 DIABETES MELLITUS WITHOUT MENTION OF COM PLICATION [SNOMED-CT: 940209606] N/A N/A 05-09-2014 DIABETES MELLITUS WITHOUT MENTION OF COM PLICATION [SNOMED-CT: 802692279] Celestine Huang, DO 03-16-2014 Back pain [SNOMED-CT: 917455110] Dr. Colleen Huang, DO 03-16-2014 CONTACT DERMATITIS AND OTHER ECZEMA UNSP ECIFIED CA [SNOMED-CT: 814489154] N/A N/A 03-16-2014 UNSPECIFIED ESSENTIAL HYPERTENSION [SNOMED-CT: 4769367 0] N/A N/A 03-16-2014 DIABETES MELLITUS WITHOUT MENTION OF COM PLICATION [SNOMED-CT: 515593890] Celestine Huang, DO 11-05-2013 Back pain [SNOMED-CT: 671432190] Dr. Colleen Huang, DO 11-05-2013 CLOSED FRACTURE OF LUMBAR VERTEBRA WITHO UT SPINAL [SNOMED-CT: 34804194] Celestine Huang, DO 11-05-2013 ANXIETY STATE UNSPECIFIED [SNOMED-CT: 274436483] Celestine Huang, DO 11-05-2013 DIABETES MELLITUS WITHOUT MENTION OF COM PLICATION [SNOMED-CT: 480037231] Celestine Huang, DO 06-11-2013 UNSPECIFIED ESSENTIAL HYPERTENSION [SNOMED-CT: 5214442 0] N/A N/A 06-11-2013 INSOMNIA UNSPECIFIED [SNOMED-CT: 579782204] Dr. Colleen Huang, DO 06-09-2013 ANXIETY STATE UNSPECIFIED [SNOMED-CT: 420459055] Celestine Huang, DO 06-09-2013 DIABETES MELLITUS WITHOUT MENTION OF COM PLICATION [SNOMED-CT: 421167125] Celestine Huang, DO 02-17-2013 HYPERPLASIA OF PROSTATE UNSPECIFIED WITH OUT URINAR [SNOMED-CT: 867753011] Celestine Huang, DO 02-17-2013 CLOSED FRACTURE OF LUMBAR VERTEBRA WITHO UT SPINAL [SNOMED-CT: 15807182] Celestine Huang, DO 02-17-2013 UNSPECIFIED ESSENTIAL HYPERTENSION [SNOMED-CT: 2228264 0] N/A N/A 02-17-2013 ROUTINE GENERAL MEDICAL EXAMINATION AT A HEALTH CARE FACILITY [SNOMED-CT: 209271245] Celestine Huang, DO 11-02-2012 DIABETES MELLITUS WITHOUT MENTION OF COM PLICATION [SNOMED-CT: 467982025] Celestine Huang, DO 08-28-2012 LUMBAGO [SNOMED-CT: 789203142] Jose Angel Huang, DO 08-05-2012 DIABETES MELLITUS WITHOUT MENTION OF COM PLICATION [SNOMED-CT: 640877557] Celestine Huang, DO 08-05-2012 UNSPECIFIED ESSENTIAL HYPERTENSION [SNOMED-CT: 4902708 0] N/A N/A 08-05-2012 DIABETES MELLITUS WITHOUT MENTION OF COM PLICATION [SNOMED-CT: 501877699] Celestine Huang, DO 02-26-2012 LUMBAGO [SNOMED-CT: 295030032] Jose Angel Huang, DO 02-26-2012 UNSPECIFIED ESSENTIAL HYPERTENSION [SNOMED-CT: 4567846 0] N/A N/A 02-26-2012 DIABETES MELLITUS WITHOUT MENTION OF COM PLICATION [SNOMED-CT: 276499176] Celestine Huang, DO 10-23-2011 LUMBAGO [SNOMED-CT: 250815861] Jose Angel Haung, DO 10-23-2011 PAIN IN JOINT INVOLVING SHOULDER REGION [SNOMED-CT: 619760462] Celestine Huang, DO 08-21-2011 DIABETES MELLITUS WITHOUT MENTION OF COM PLICATION [SNOMED-CT: 939261699] Celestine Huang, DO 08-21-2011 HYPERPLASIA OF PROSTATE UNSPECIFIED WITH OUT URINAR [SNOMED-CT: 792404164] Celestine Huang, DO 08-21-2011 UNSPECIFIED ESSENTIAL HYPERTENSION [SNOMED-CT: 7874605 0] N/A N/A 08-21-2011 Other specified vaccination [ICD10: Z23] Celestine Huang, DO 08-21-2011 PAIN IN JOINT INVOLVING SHOULDER REGION [SNOMED-CT: 559110179] Celestine Huang, DO 06-19-2011 DIABETES MELLITUS WITHOUT MENTION OF COM PLICATION [SNOMED-CT: 219479865] Celestine Huang, DO 06-19-2011 HYPERPLASIA OF PROSTATE UNSPECIFIED WITH OUT URINAR [SNOMED-CT: 767577983] Celestine Huang, DO 06-19-2011 UNSPECIFIED ESSENTIAL HYPERTENSION [SNOMED-CT: 4926803 0] N/A N/A 06-19-2011 Other specified vaccination [ICD10: Z23] Celestine Huang, DO 06-19-2011 PAIN IN JOINT INVOLVING SHOULDER REGION [SNOMED-CT: 297114434] Celestine Huang, DO 03-08-2011 DIABETES MELLITUS WITHOUT MENTION OF COM PLICATION [SNOMED-CT: 087730346] Celestine Huang, DO 03-08-2011 HYPERPLASIA OF PROSTATE UNSPECIFIED WITH OUT URINAR [SNOMED-CT: 596522616] Celestine Huang, DO 03-08-2011 UNSPECIFIED ESSENTIAL HYPERTENSION [SNOMED-CT: 7995549 0] N/A N/A 03-08-2011 PAIN IN JOINT INVOLVING SHOULDER REGION [SNOMED-CT: 792214790] Celestine Huang, DO 12-26-2010 DIABETES MELLITUS WITHOUT MENTION OF COM PLICATION [SNOMED-CT: 968592528] Celestine Huang, DO 12-26-2010 HYPERPLASIA OF PROSTATE UNSPECIFIED WITH OUT URINAR [SNOMED-CT: 043894552] Celestine Huang, DO 12-26-2010 UNSPECIFIED ESSENTIAL HYPERTENSION [SNOMED-CT: 2868639 0] N/A N/A 12-26-2010 Back pain [SNOMED-CT: 220511055] Dr. Colleen Huang, DO 12-14-2010 CLOSED FRACTURE OF LUMBAR VERTEBRA WITHO UT SPINAL [SNOMED-CT: 13541744] Celestine Huang, DO 12-14-2010 DIABETES MELLITUS WITHOUT MENTION OF COM PLICATION [SNOMED-CT: 198401963] Celestine Huang, DO 09-24-2010 CLOSED FRACTURE OF LUMBAR VERTEBRA WITHO UT SPINAL [SNOMED-CT: 99023800] Celestine Huang, DO 09-24-2010 UNSPECIFIED ESSENTIAL HYPERTENSION [SNOMED-CT: 7195545 0] N/A N/A 09-24-2010 DIABETES MELLITUS WITHOUT MENTION OF COM PLICATION [SNOMED-CT: 839512779] Celestine Huang, DO 08-29-2010 CLOSED FRACTURE OF LUMBAR VERTEBRA WITHO UT SPINAL [SNOMED-CT: 93717943] Celestine Huang, DO 08-29-2010 UNSPECIFIED ESSENTIAL HYPERTENSION [SNOMED-CT: 1441405 0] N/A N/A 08-29-2010 DIABETES MELLITUS WITHOUT MENTION OF COM PLICATION [SNOMED-CT: 660568330] Celestine Huang, DO 06-27-2010 CLOSED FRACTURE OF LUMBAR VERTEBRA WITHO UT SPINAL [SNOMED-CT: 51883042] Celestine Huang, DO 06-27-2010 UNSPECIFIED ESSENTIAL HYPERTENSION [SNOMED-CT: 6585496 0] N/A N/A 06-27-2010 CLOSED FRACTURE OF LUMBAR VERTEBRA WITHO UT SPINAL [SNOMED-CT: 04383865] Celestine Huang, DO 06-13-2010 DIABETES MELLITUS WITHOUT MENTION OF COM PLICATION [SNOMED-CT: 832252760] Celestine Huang, DO 03-23-2010 IMPOTENCE OF ORGANIC ORIGIN [SNOMED-CT: 629621346] N/A N/A 03-23-2010 UNSPECIFIED ESSENTIAL HYPERTENSION [SNOMED-CT: 9086634 0] N/A N/A 03-23-2010 UNSPECIFIED CATARACT [SNOMED-CT: 941437570] Celestine Huang, DO 01-26-2010 DIABETES MELLITUS WITHOUT MENTION OF COM PLICATION [SNOMED-CT: 103998628] Celestine Huang, DO 01-26-2010 UNSPECIFIED SLEEP APNEA [SNOMED-CT: 85990895] Celestine Huang, DO 01-26-2010 UNSPECIFIED ESSENTIAL HYPERTENSION [SNOMED-CT: 0312365 0] N/A N/A 01-26-2010 UNSPECIFIED DISORDER OF SKIN AND SUBCUTA NEOUS TISS [SNOMED-CT: 86055232] Celestine Huang, DO 01-26-2010 IMPOTENCE OF ORGANIC ORIGIN [SNOMED-CT: 791758162] N/A N/A 01-26-2010 DIABETES MELLITUS WITHOUT MENTION OF COM PLICATION [SNOMED-CT: 232040552] Celestine Huang, DO 12-20-2009 UNSPECIFIED ESSENTIAL HYPERTENSION [SNOMED-CT: 7489062 0] N/A N/A 12-20-2009 HYPERPLASIA OF PROSTATE UNSPECIFIED WITH OUT URINAR [SNOMED-CT: 026829650] Celestine Huang, DO 12-20-2009 UNSPECIFIED DISORDER OF SKIN AND SUBCUTA NEOUS TISS [SNOMED-CT: 72068433] Celestine Huang, DO 12-20-2009 IMPOTENCE OF ORGANIC ORIGIN [SNOMED-CT: 066945243] N/A N/A 12-20-2009 DIABETES MELLITUS WITHOUT MENTION OF COM PLICATION [SNOMED-CT: 577275106] N/A N/A 09-18-2009 UNSPECIFIED ESSENTIAL HYPERTENSION [SNOMED-CT: 4680368 0] N/A N/A 09-18-2009 IMPOTENCE OF ORGANIC ORIGIN [SNOMED-CT: 529256740] N/A N/A 09-18-2009 DIABETES MELLITUS WITHOUT MENTION OF COM PLICATION [SNOMED-CT: 167862648] N/A N/A 06-28-2009 DIABETES MELLITUS WITHOUT MENTION OF COM PLICATION [SNOMED-CT: 483058192] N/A N/A 06-16-2009 UNSPECIFIED ESSENTIAL HYPERTENSION [SNOMED-CT: 6097751 0] N/A N/A 06-16-2009 CONTACT DERMATITIS AND OTHER ECZEMA UNSP ECIFIED CA [SNOMED-CT: 203978670] N/A N/A 06-16-2009 ALLERGIES AND ADVERSE REACTIONS [...] Generic Name Instructions Dosage Start Date Status atorvastatin 10 mg oral tablet, [RxNorm: 580461] atorvastatin one po hs daily 0 08/14/2020 Active metFORMIN 500 mg oral tablet, [RxNorm: 992256] metFORMIN one po bid 08/14/2020 Active HumaLOG 100 units/mL injectable solution, [RxNorm: 865 098] insulin lispro 6 units this am for sugar of 220....he h as a sliding scale 0 08/14/2020 Active Diflucan 150 mg oral tablet, [RxNorm: 414696] fluconazole one po now and repeat in 5 days 2 05/30/2020 Active Lotrisone 1%-0.05% topical cream, [RxNorm: 509138] clotrimazole-betamethasone dipropionate topic use as directed apply to genital area bid 30 05/30/2020 Active sertraline 100 mg oral tablet, [RxNorm: 761919] sertraline two po daily 180 019 Active lisinopril 10 mg oral tablet, [RxNorm: 928819] lisinopril one po daily 90 08/13/20 19 Active Linzess 145 mcg oral capsule, [RxNorm: 2109446] linaclotide one po daily prn constipation 90 08/13/2019 Active BD Pen Needle Mini U/F Unknown use as directed for lantus injection 200 2018 Active ibuprofen 800 mg oral tablet, [RxNorm: 525107] ibuprofen one po tid with food 90 06/23/2019 Active Lantus Solostar Pen 100 units/mL subcuta neous solution, [RxNorm: 473837] insulin glargine 14 units sq daily 15 12/18/2018 Active ProAir HFA 90 mcg/inh inhalation aerosol, [RxNorm: 745 752] albuterol two puffs qid prn wheeze 0 06/02/2017 Active Cortisporin-TC otic suspension, [RxNorm: 816974] colistin/neomycin/thonzonium/HC otic 4 gtts into left EAC bid 5 12/15/2015 Active aspirin 81 mg oral tablet, [RxNorm: 604134] aspirin one daily 1 11/17/2015 Active INSURANCE PROVIDERS Payer Name Policy Type P olicy ID Covered Libertarian ID Policy [employer] MED[employer] Health Insurance [id number] ESTRELLA CABALLERO [facility] 20 [id number] THIAGO MENDOZA ASSESSMENTS # Acute pancreatitis (K85.90): ??? gallstone/vs trulicity/vs hyperglycemiahe is not a drinker.# Type II diabetes mellitus poorly controlled (E11.65): # Other hyperlipidemia (E78.49): PROBLEMS Problem Problem Status D ate Started Date Resolved Date Inactivated CLOSED FRACTURE OF LUMBAR VERTEBRA WITHO UT SPINAL [SNOMED-CT: 16724517] Active 06-13-2010 NA NA Type II diabetes mellitus poorly control led [SNOMED-CT: 549201600] Active 03-22-2020 NA NA Allergic contact dermatitis of male melissa isamar [SNOMED-CT: 020059601] Active 03-07-2017 NA NA Other genital problems [ICD10: R68.89] Active 03-07-2017 NA NA ROUTINE GENERAL MEDICAL EXAMINATION AT A HEALTH CARE FACILITY [SNOMED-CT: 446079746] Active 11-02-2012 NA NA Other specified vaccination [ICD10: Z23] Active 05-15-2016 NA NA DIABETES MELLITUS WITHOUT MENTION OF COM PLICATION [SNOMED-CT: 685784088] Active 12-20-2009 NA NA HYPERPLASIA OF PROSTATE UNSPECIFIED WITH OUT URINAR [SNOMED-CT: 375932312] Active 12-20-2009 NA NA UNSPECIFIED DISORDER OF SKIN AND SUBCUTA NEOUS TISS [SNOMED-CT: 62411419] Active 12-20-2009 NA NA Balanitis [SNOMED-CT: 78521729] Active 05-30-2020 NA NA Bronchospasm [SNOMED-CT: 5631212] Active 09-04-2016 NA NA Other hyperlipidemia [ICD10: E78.49] Activ e 07-20-2018 NA NA Penile cellulitis/abscess/boil [SNOMED-CT: 550253261] Active 01-15-2017 NA NA Other constipation [ICD9: 564.09] Active 01-18-2015 NA NA UNSPECIFIED CATARACT [SNOMED-CT: 926696921] Active 01-26-2010 NA NA UNSPECIFIED SLEEP APNEA [SNOMED-CT: 41973990] Active 01-26-2010 NA NA Acute pancreatitis [SNOMED-CT: 278037668] Active 08-14-2020 NA NA Contusion of lower back and pelvis, init ial encounter [ICD10: S30.0XXA] Active 12-14-2018 NA NA Exogenous hyperlipidemia [SNOMED-CT: 829785278] Active 09-27-2015 NA NA Otitis externa [SNOMED-CT: 1979787] Active 12-15-2015 NA NA Impacted cerumen [SNOMED-CT: 80782280] Active 12-15-2015 NA NA INSOMNIA UNSPECIFIED [SNOMED-CT: 525887804] Active 06-09-2013 NA NA ANXIETY STATE UNSPECIFIED [SNOMED-CT: 548869050] Active 06-09-2013 NA NA NEED FOR PROPHYLACTIC VACCINATION AND IN OCULATION AGAINST INFLUENZA [SNOMED-CT: 393906768] Active 06-19-2011 NA NA Primary atypical interstitial pneumonia [SNOMED-CT: 35 901109] Active 09-04-2016 NA NA Viral gastroenteritis [SNOMED-CT: 763131661] Active 12-26-2017 NA NA Cat bite - wound [SNOMED-CT: 065899649] Active 12-26-2017 NA NA Cat bite [SNOMED-CT: 419061006] Active 12-26-2017 NA NA Cat bite [SNOMED-CT: 578280884] Active 12-26-2017 NA NA BACKACHE UNSPECIFIED [SNOMED-CT: 852737314] Active 12-14-2010 NA NA PAIN IN JOINT INVOLVING SHOULDER REGION [SNOMED-CT: 190758175] Active 12-26-2010 NA NA DIABETES MELLITUS WITHOUT MENTION OF COM PLICATION [SNOMED-CT: 411237310] Active 05-19-2009 NA NA UNSPECIFIED ESSENTIAL HYPERTENSION [SNOMED-CT: 2638863 0] Active 05-19-2009 NA NA CONTACT DERMATITIS AND OTHER ECZEMA UNSP ECIFIED CA [SNOMED-CT: 022806963] Active 05-19-2009 NA NA Acute rhinosinusitis [SNOMED-CT: 815574680] Active 09-08-2019 NA NA Upper respiratory infection [SNOMED-CT: 10157941] Active 09-08-2019 NA NA LUMBAGO [SNOMED-CT: 630578127] Active 10-23-2011 NA NA SPRAIN OF UNSPECIFIED SITE OF SHOULDER A ND UPPER A [SNOMED-CT: 607452678] Active 06-28-2009 NA NA Back pain [SNOMED-CT: 234966705] Active 08-11-2015 NA NA Dysuria-frequency syndrome [SNOMED-CT: 0937715] Active 08-11-2015 NA NA Arthropathy of left shoulder [SNOMED-CT: 8831631764191 9103] Active 06-03-2018 NA NA Pain in left foot [SNOMED-CT: 651071765129915] Active 06-18-2019 NA NA DIABETES WITH RENAL MANIFESTATIONS TYPE II OR UNSPECIFIED TYPE NOT STATED UNCONTROLLED [SNOMED-CT: 342929255] Active 09-14-2014 NA NA CHRONIC KIDNEY DISEASE STAGE II (MILD) [SNOMED-CT: 431 042145] Active 09-14-2014 NA NA IMPOTENCE OF ORGANIC ORIGIN [SNOMED-CT: 747303967] Active 09-18-2009 NA NA PROCEDURES Procedure Date CPT Code Procedure 08/14/2020 09:42:50 [id number] Transitional Care Management Services with the following required elements: Communication (direct contact, telephone, electronic) with the patient and/or caregiver within 2 business days of discharge Medical decision making of high complexity during the service period Pjpy-qa-fjnb visit, within 7 calendar days of discharge 08/14/2020 09:42:50 [id number] Eligible clinician attests to documenting in the medical record they obtained, updated, or reviewed the patient's current medications 05/30/2020 13:09:49 43780 Office or other outpatient visit for the [...] moderate severity. Physicians typically spend 15 minutes cvrx-tg-[id number] with the patient and/or family. 03/22/2020 09:10:00 84027 Office or other outpatient visit for the [...] moderate severity. Physicians typically spend 15 minutes xnzu-gj-zpal with the patient and/or family. 03/15/2020 12:24:05 59360 Office or other outpatient visit for the evaluation and management of an established patient, that may not require the presence of a physician. Usually, the presenting problem(s) are minimal. Typically, 5 minutes are spent performing or supervising these services. 03/15/2020 12:24:05 56766 Hemoglobin; glycosylated (A1C) by device cleared by FDA for home use 03/15/2020 12:24:05 3046F Most recent hemoglobin A1c level greater than 9.0% (DM) 09/08/2019 08:19:29 10970 Office or other outpatient visit for the [...] high severity. Physicians typically spend 25 minutes neol-hr-sivk with the patient and/or family. 09/08/2019 08:19:29 56903 Hemoglobin; glycosylated (A1C) by device cleared by FDA for home use 09/08/2019 08:19:29 3045F Most recent hemoglobin A1c (HbA1c) level 7.0-9.0% (DM) 08/13/2019 13:55:58 G0439 ANNUAL WELLNESS VISIT, SUBSEQUENT 08/13/2019 13:55:58 03529 Hemoglobin; glycosylated (A1C) by device cleared by FDA for home use 08/13/2019 13:55:58 21416 Influenza virus vaccine, quadrivalent (ccIIV4), derived from cell cultures, subunit, preservative and antibiotic free, 0.5 mL dosage, for intramuscular use 08/13/2019 13:55:58 G0008 ADMINISTRATION OF FLU VACCINE (V04.81) 08/13/2019 13:55:58 2021F Dilated retinal eye exam with interpretation by an trash collector supervisor or collision repair technician documented and reviewed (DM) 08/13/2019 13:55:58 G8427 Eligible clinician attests to documenting in the medical record they obtained, updated, or reviewed the patient's current medications 08/13/2019 13:55:58 3017F Colorectal cancer screening results documented and reviewed (PV) 08/13/2019 13:55:58 1036F Current tobacco non-user (CAD, CAP, COPD, PV) (DM) (IBD) 06/18/2019 09:23:34 85027 Office or other outpatient visit for the [...] high severity. Physicians typically spend 25 minutes wllc-gb-sswl with the patient and/or family. 06/18/2019 09:23:34 01306 Hemoglobin; glycosylated (A1C) by device cleared by FDA for home use 06/18/2019 09:23:34 3045F Most recent hemoglobin A1c (HbA1c) level 7.0-9.0% (DM) 03/24/2019 08:14:04 82199 Office or other outpatient visit for the [...] high severity. Physicians typically spend 25 minutes ikyx-jw-oxao with the patient and/or family. 03/24/2019 08:14:04 42144 Hemoglobin; glycosylated (A1C) by device cleared by FDA for home use 03/24/2019 08:14:04 3045F Most recent hemoglobin A1c (HbA1c) level 7.0-9.0% (DM) 03/24/2019 08:14:04 G8427 Eligible clinician attests to documenting in the medical record they obtained, updated, or reviewed the patient's current medications 03/23/2019 11:45:37 3017F Colorectal cancer screening results documented and reviewed (PV) 12/14/2018 08:01:40 01780 Office or other outpatient visit for the evaluation and management of an established patient, which requires at least 2 of these 3 carlilse components: A detailed history; A detailed examination; Medical decision making of moderate complexity. Counseling and/or coordination of care with other providers or agencies are provided consistent with the nature of the problem(s) and the patient's and/or family's n eeds. Usually, the presenting problem(s) are of moderate to high severity. Physicians typically spend 25 minutes ydxy-xq-tguv with the patient and/or family. 12/14/2018 08:01:40 12277 Collection of venous blood by venipuncture 12/14/2018 08:01:40 29240 Hemoglobin; glycosylated (A1C) by device cleared by FDA for home use 12/14/2018 08:01:40 3046F Most recent hemoglobin A1c level greater than 9.0% (DM) 12/14/2018 08:01:40 G8427 Eligible clinician attests to documenting in the medical record they obtained, updated, or reviewed the patient's current medications 09/07/2018 08:17:34 04126 Office or other outpatient visit for the evaluation and management of an established patient, that may not require the presence of a physician. Usually, the presenting problem(s) are minimal. Typically, 5 minutes are spent performing or supervising these services. 09/07/2018 08:17:34 99209 Hemoglobin; glycosylated (A1C) by device cleared by FDA for home use 09/07/2018 08:17:34 3044F Most recent hemoglobin A1c (HbA1c) level less than 7.0% (DM) 07/20/2018 13:54:05 65835 Periodic comprehensive preventive medicine reevaluation and management of an individual including an age and gender appropriate history, examination, counseling/anticipatory guidance/risk factor reduction interventions, and the ordering of laboratory/diagnostic procedures, established patient; 65 years and older 07/20/2018 13:54:05 95226 Hemoglobin; glycosylated (A1C) by device cleared by FDA for home use 07/20/2018 13:54:05 G8427 Eligible clinician attests to documenting in the medical record they obtained, updated, or reviewed the patient's current medications 07/20/2018 13:54:05 1036F Current tobacco non-user (CAD, CAP, COPD, PV) (DM) (IBD) 07/20/2018 13:54:05 3044F Most recent hemoglobin A1c (HbA1c) level less than 7.0% (DM) 06/03/2018 08:23:02 19534 Office or other outpatient visit for the [...] high severity. Physicians typically spend 25 minutes pijm-uv-dzxs with the patient and/or family. 06/03/2018 08:23:02 79129 Hemoglobin; glycosylated (A1C) by device cleared by FDA for home use 06/03/2018 08:23:02 3045F Most recent hemoglobin A1c (HbA1c) level 7.0-9.0% (DM) 03/27/2018 08:56:44 26576 Office or other outpatient visit for the [...] moderate severity. Physicians typically spend 15 minutes albw-hb-fkpm with the patient and/or family. 03/27/2018 08:56:44 3045F Most recent hemoglobin A1c (HbA1c) level 7.0-9.0% (DM) 03/27/2018 08:56:44 83108 Hemoglobin; glycosylated (A1C) by device cleared by FDA for home use 03/27/2018 08:56:44 G8427 Eligible clinician attests to documenting in the medical record they obtained, updated, or reviewed the patient's current medications 12/26/2017 08:55:27 79508 Office or other outpatient visit for the [...] high severity. Physicians typically spend 25 minutes rxbo-ka-ftja with the patient and/or family. 12/26/2017 08:55:27 3045F Most recent hemoglobin A1c (HbA1c) level 7.0-9.0% (DM) 12/26/2017 08:55:27 29870 Hemoglobin; glycosylated (A1C) by device cleared by FDA for home use 12/26/2017 08:55:27 1036F Current tobacco non-user (CAD, CAP, COPD, PV) (DM) (IBD) 12/26/2017 08:55:27 G8427 Eligible clinician attests to documenting in the medical record they obtained, updated, or reviewed the patient's current medications 12/26/2017 08:55:27 2021F Dilated retinal eye exam with interpretation by an trash collector supervisor or collision repair technician documented and reviewed (DM) 09/24/2017 08:27:29 66130 Office or other outpatient visit for the [...] high severity. Physicians typically spend 25 minutes boiw-gl-kpaf with the patient and/or family. 09/24/2017 08:27:29 34314 Hemoglobin; glycosylated (A1C) by device cleared by FDA for home use 09/24/2017 08:27:29 3045F Most recent hemoglobin A1c (HbA1c) level 7.0-9.0% (DM) 09/24/2017 08:27:29 1036F Current tobacco non-user (CAD, CAP, COPD, PV) (DM) (IBD) 06/02/2017 08:22:37 37102 Periodic comprehensive preventive medicine reevaluation and management [...] CAP, COPD, PV) (DM) (IBD) 06/02/2017 08:22:37 13236 Hemoglobin; glycosylated (A1C) by device cleared by FDA for home use 03/07/2017 09:18:02 27329 Office or other outpatient visit for the [...] high severity. Physicians typically spend 25 minutes copi-zm-qlyr with the patient and/or family. 03/07/2017 09:18:02 95484 Hemoglobin; glycosylated (A1C) by device cleared by FDA for home use 01/15/2017 08:13:41 62426 Office or other outpatient visit for the [...] high severity. Physicians typically spend 25 minutes eheu-dq-txep with the patient and/or family. 11/11/2016 09:37:13 37213 Hemoglobin; glycosylated (A1C) by device cleared by FDA for home use 11/06/2016 08:26:32 75957 Office or other outpatient visit for the [...] moderate severity. Physicians typically spend 15 minutes ygvy-mq-vmcr with the patient and/or family. 09/04/2016 09:23:52 85508 Office or other outpatient visit for the [...] moderate severity. Physicians typically spend 15 minutes hdrh-og-qcfv with the patient and/or family. 07/10/2016 08:21:01 74982 Office or other outpatient visit for the [...] high severity. Physicians typically spend 25 minutes tscl-no-nufy with the patient and/or family. 07/10/2016 08:21:01 41387 Hemoglobin; glycosylated (A1C) by device cleared by FDA for home use 05/15/2016 08:27:09 90273 Office or other outpatient visit for the [...] moderate severity. Physicians typically spend 15 minutes nprq-wb-vehx with the patient and/or family. 05/15/2016 08:27:09 01599 Hemoglobin; glycosylated (A1C) by device cleared by FDA for home use 05/15/2016 08:27:09 G0008 ADMINISTRATION OF FLU VACCINE (V04.81) 05/15/2016 08:27:09 Q2037 FLUVRIN 03/18/2016 08:09:18 27154 Office or other outpatient visit for the [...] high severity. Physicians typically spend 25 minutes ggpl-ho-bozy with the patient and/or family. 01/22/2016 08:23:52 86618 Collection of venous blood by venipuncture 01/22/2016 08:23:52 12278 Office or other outpatient visit for the [...] high severity. Physicians typically spend 25 minutes ujqm-qa-uwlc with the patient and/or family. 12/15/2015 12:17:35 94641 Removal impacted cerumen (separate procedure), 1 or both ears 12/15/2015 12:17:35 98916 Office or other outpatient visit for the [...] moderate severity. Physicians typically spend 15 minutes llvo-xw-bxla with the patient and/or family. 11/17/2015 08:15:21 34090 Collection of venous blood by venipuncture 11/17/2015 08:15:21 00754 Office or other outpatient visit for the [...] high severity. Physicians typically spend 40 minutes mdwb-as-aepf with the patient and/or family. 11/17/2015 08:15:21 14259 Hemoglobin; glycosylated (A1C) by device cleared by FDA for home use 09/27/2015 08:29:20 25697 Periodic comprehensive preventive medicine reevaluation and management of an individual including an age and gender appropriate history, examination, counseling/anticipatory guidance/risk factor reduction interventions, and the ordering of laboratory/diagnostic procedures, established patient; 40-64 years 09/27/2015 08:29:20 81228 Collection of venous blood by venipuncture 09/27/2015 08:29:20 53239 Hemoglobin; glycosylated (A1C) by device cleared by FDA for home use 08/11/2015 08:14:29 70744 Office or other outpatient visit for the [...] moderate severity. Physicians typically spend 15 minutes vjef-tt-kqtf with the patient and/or family. 06/19/2015 08:27:11 27132 Office or other outpatient visit for the [...] moderate severity. Physicians typically spend 15 minutes ppka-mx-jtzl with the patient and/or family. 04/26/2015 08:20:21 99251 Office or other outpatient visit for the [...] moderate severity. Physicians typically spend 15 minutes qusa-jz-jtpp with the patient and/or family. 04/26/2015 08:20:21 64818 Hemoglobin; glycosylated (A1C) by device cleared by FDA for home use 01/18/2015 08:11:52 15349 Office or other outpatient visit for the [...] moderate severity. Physicians typically spend 15 minutes hjjh-tc-ywjl with the patient and/or family. 11/30/2014 08:15:54 97803 Office or other outpatient visit for [...] high severity. Physicians typically spend 25 minutes nfpx-ze-hado with the patient and/or family. 11/30/2014 08:15:54 48644 Collection of venous blood by venipuncture 11/30/2014 08:15:54 17339 Hemoglobin; glycosylated (A1C) by device cleared by FDA for home use 10/19/2014 00:00:00 17294 Collection of venous blood by venipuncture 10/19/2014 00:00:00 80552 Office or other outpatient visit for the [...] moderate severity. Physicians typically spend 15 minutes kjpf-dm-vjwl with the patient and/or family. 09/16/2014 00:00:00 20268 Office or other outpatient visit for the [...] moderate severity. Physicians typically spend 15 minutes cras-du-kcss with the patient and/or family. 09/14/2014 00:00:00 16045 Office or other outpatient visit for the [...] moderate severity. Physicians typically spend 15 minutes dwnk-bh-mycj with the patient and/or family. 08/22/2014 15:40:11 99126 INFLUENZA VACCINATION 08/22/2014 15:40:11 41610 Periodic comprehensive preventive medicine reevaluation and management of an individual including an age and gender appropriate history, examination, counseling/anticipatory guidance/risk factor reduction interventions, and the ordering of laboratory/diagnostic procedures, established patient; 40-64 years 08/22/2014 15:40:11 07613 Collection of venous blood by venipuncture 08/22/2014 15:40:11 Q2037 FLUVRIN 05/09/2014 00:00:00 86927 Office or other outpatient visit for the [...] moderate severity. Physicians typically spend 15 minutes ezje-qt-lwpe with the patient and/or family. 05/09/2014 00:00:00 29205 Hemoglobin; glycosylated (A1C) by device cleared by FDA for home use 03/16/2014 00:00:00 35425 Office or other outpatient visit for the [...] high severity. Physicians typically spend 25 minutes irqu-hq-jsgq with the patient and/or family. 03/16/2014 00:00:00 05917 Hemoglobin; glycosylated (A1C) by device cleared by FDA for home use 11/05/2013 00:00:00 37388 Office or other outpatient visit for the [...] moderate severity. Physicians typically spend 15 minutes faxm-pw-yhll with the patient and/or family. 11/05/2013 00:00:00 99903 Collection of venous blood by venipuncture 11/05/2013 00:00:00 75320 Hemoglobin; glycosylated (A1C) by device cleared by FDA for home use 06/11/2013 00:00:00 72917 Periodic comprehensive preventive medicine reevaluation and management of an individual including an age and gender appropriate history, examination, counseling/anticipatory guidance/risk factor reduction interventions, and the ordering of laboratory/diagnostic procedures, established patient; 40-64 years 06/11/2013 00:00:00 78193 Hemoglobin; glycosylated (A1C) by device cleared by FDA for home use 06/09/2013 08:31:54 06506 Office or other outpatient visit for the [...] moderate severity. Physicians typically spend 15 minutes rtnt-qw-ssyq with the patient and/or family. 02/17/2013 08:29:32 34400 Office or other outpatient visit for the [...] moderate severity. Physicians typically spend 15 minutes lylp-az-hbvu with the patient and/or family. 02/17/2013 08:29:32 09443 Collection of venous blood by venipuncture 02/17/2013 08:29:32 03728 Hemoglobin; glycosylated (A1C) by device cleared by FDA for home use 11/02/2012 08:13:33 72865 Periodic comprehensive preventive medicine reevaluation and management of an individual including an age and gender appropriate history, examination, counseling/anticipatory guidance/risk factor reduction interventions, and the ordering of laboratory/diagnostic procedures, established patient; 40-64 years 11/02/2012 08:13:33 91101 Hemoglobin; glycosylated (A1C) by device cleared by FDA for home use 08/28/2012 08:54:25 25151 Office or other outpatient visit for the [...] moderate severity. Physicians typically spend 15 minutes himi-sq-tfur with the patient and/or family. 08/05/2012 11:43:02 43491 Office or other outpatient visit for the [...] moderate severity. Physicians typically spend 15 minutes hixx-eu-bfde with the patient and/or family. 08/05/2012 11:43:02 79921 Hemoglobin; glycosylated (A1C) by device cleared by FDA for home use 02/26/2012 08:27:00 85346 Collection of venous blood by venipuncture 02/26/2012 08:27:00 19404 Office or other outpatient visit for the [...] high severity. Physicians typically spend 25 minutes ztab-qj-zggo with the patient and/or family. 10/23/2011 08:31:03 83387 Office or other outpatient visit for the [...] moderate severity. Physicians typically spend 15 minutes teii-yh-ehyc with the patient and/or family. 10/23/2011 08:31:03 43491 Hemoglobin; glycosylated (A1C) by device cleared by FDA for home use 08/21/2011 08:26:48 21839 Collection of venous blood by venipuncture 08/21/2011 08:26:48 25809 Office or other outpatient visit for the [...] moderate severity. Physicians typically spend 15 minutes adcf-ru-vskf with the patient and/or family. 06/19/2011 08:43:09 53007 INFLUENZA VACCINATION 06/19/2011 08:43:09 13588 Collection of venous blood by venipuncture 06/19/2011 08:43:09 82637 Immunization administration (includes percutaneous, intradermal, subcutaneous, or intramuscular injections); one vaccine (single or combination vaccine/toxoid) 06/19/2011 08:43:09 28957 Office or other outpatient visit for the [...] high severity. Physicians typically spend 25 minutes doaj-ma-ssad with the patient and/or family. 03/08/2011 08:41:01 92002 Office or other outpatient visit for the [...] high severity. Physicians typically spend 25 minutes jpfg-tq-wnwr with the patient and/or family. 12/26/2010 08:18:16 67580 Collection of venous blood by venipuncture 12/26/2010 08:18:16 91478 Office or other outpatient visit for the [...] moderate severity. Physicians typically spend 15 minutes xhin-fl-jjzo with the patient and/or family. 12/14/2010 08:19:33 41626 Office or other outpatient visit for the [...] high severity. Physicians typically spend 25 minutes sflr-ed-hagm with the patient and/or family. 09/24/2010 08:30:35 73897 Office or other outpatient visit for the [...] high severity. Physicians typically spend 25 minutes njmb-xz-dcdb with the patient and/or family. 08/29/2010 00:00:00 92586 Office or other outpatient visit for the [...] high severity. Physicians typically spend 25 minutes lnbq-bk-mxfh with the patient and/or family. 06/27/2010 00:00:00 49809 Office or other outpatient visit for the [...] high severity. Physicians typically spend 25 minutes mspl-zv-tuoi with the patient and/or family. 06/27/2010 00:00:00 G8553 AT LEASTONE PRESCRIPTION CREATED DURING THE ENCOUNTER WAS GENERATED AND TRANSMITTED ELECTRONICALLY USING A QUALIFIED [employer] SYSTEM 06/27/2010 00:00:00 10832 Collection of venous blood by venipuncture 06/13/2010 00:00:00 33126 Office or other outpatient visit for the [...] moderate severity. Physicians typically spend 15 minutes bgkj-rn-tyzo with the patient and/or family. 03/23/2010 00:00: 26046 Office or other outpatient visit for the [...] high severity. Physicians typically spend 25 minutes gxnp-va-xhub with the patient and/or family. 03/23/2010 00:: 42935 Collection of venous blood by venipuncture 01/26/2010 00:00:00 77461 Office or other outpatient visit for the [...] high severity. Physicians typically spend 25 minutes rqzx-of-bbtf with the patient and/or family. 12/20/2009 00:00: 99210 Collection of venous blood by venipuncture 12/20/2009 00:00: 61278 Office or other outpatient visit for the [...] moderate severity. Physicians typically spend 15 minutes kxhv-ew-zjxt with the patient and/or family. 09/18/2009 00:00:00 46278 Office or other outpatient visit for the [...] high severity. Physicians typically spend 25 minutes dltv-af-bmrc with the patient and/or family. 09/18/2009 00:00:00 98864 Collection of venous blood by venipuncture 06/28/2009 00:00:00 23945 Office or other outpatient visit for the [...] high severity. Physicians typically spend 25 minutes ddji-hy-ibaj with the patient and/or family. 06/16/2009 00:00:00 94082 Office or other outpatient visit for the [...] high severity. Physicians typically spend 25 minutes ksau-kz-sagb with the patient and/or family. 06/16/2009 00:00:00 03082 Blood, occult, by peroxidase activity (eg, guaiac), qualitative; feces, consecutive collected specimens with single determination, for colorectal neoplasm screening (ie, patient was provided 3 cards or single triple card for consecutive collection) 06/16/2009 00:00:00 56901 Collection of venous blood by venipuncture -- 39427 Collection of v enous blood by venipuncture [...] 11:53:00 N/A Service Date and Time: 04/20/2016 0868 Technologist: Exam Requested: ECG WITH READING ER PHYS Reason for Patient Visit: CHEST PAIN Reason for Exam: Chest Pain Stationary ECG Study [facility] - ED Test Date: 2016-04-20 Pat Name: ESTRELLA MENDOZA Department: Room: - Gender: M Celery Packer: mr VANEGASB: 1950 Requested By: Jung Sofia Order Number: [id number] Reading MD: Shira Otero Measurements Intervals [place] Rate: 77 P: 68 NV: 152 QRS: -30 QRSD: 100 T: 44 QT: 384 QTc: 437 Interpretive Statements SINUS RHYTHM BORDERLINE LEFT AXIS DEVIATION LOW VOLTAGE LIMB NSTTW ABNORMALITY NO PRIOR FOR COMPARISON Electronically Signed On 04-21-2016 20:05:36 EDT by Shira Otero DD: PEDRO 04/20/20162 DT: [place] 04/21/20162004 DS: PEDRO 04/21/20162004 The Following Link and Pin can be used to access images associated with this report: [email or web address] [id number] N/A N/A 04/20/2016 13:07:00 HEMOGLOBIN A1c [...] 01/22/2016 19:03:00 ALBUMIN/GLOBULIN RATIO 1.27 1.00-1.93 No [facility] 01/22/2016 19:03:00 TRIGLYCERIDES LEVEL 207 MG/DL <150 H 01/22/2016 19:03:00 CHOLESTEROL LEVEL 153 MG/DL <200 No Flag 01/22/2016 19:03:00 HDL CHOLESTEROL 40 MG/DL >40 No Flag 01/22/2016 19:03:00 LDL CHOLESTEROL 71.6 MG/DL <100 No [facility] 01/22/2016 19:03:00 NON-HDL-C 113 MG/DL -- No Flag 01/22/2016 19:03:00 CHOLESTEROL RISK RATIO 3.825 <5 No [facility] 01/22/2016 19:03:00 WHITE BLOOD COUNT 5.9 K/mm3 [...] Observed Smoking Status Former smoker, [SNOME D-CT: [id number]], 75.00 pk yrs/20.00 yrs quit 11/30/2014 - 11/30/2014 TREATMENT PLAN Encounter Date [facility] 08/14/2020 09:42:50 ADDED Current Meds: atorvastatin 10 [...] # 18, RF: 3. (Transmitted by Colleen PelhamDO joelle) Date Prescribed: 08/13/2019 ADDED Current Meds: [...] # 30, RF: 0. (Transmitted by Colleen PelhamDO joelle) Date Prescribed: 09/08/2019 PRESCRIBE: metFORMIN 500 mg oral tablet, one po bid, RF: 3. REMOVED from Current Meds: Trulicity Pen 1.5 mg/0.5 mL subcutaneous solution, use one dose weekly as directed, # 18, RF: 3. (Transmitted by Colleen PelhamDO joelle) Date Prescribed: 08/13/2019 ADDED Current Meds: [...] scheduled for a telehealth visit to [facility] on 03/22/2020. 03/15/2020 12:24:05 HgA1c is 10.0% Appointment scheduled for a telehealth visit to [facility] on 03/22/2020. 10/25/2019 08:14:07 Plan [...] the Left Deltoid (Mfg: SEQIRUS lot no. [id number], expires 02/29/2020) ORDERED/ADVISED: Order Date 08-13-2019 - [...] the Left Deltoid (Mfg: SEQIRUS lot no. [id number], expires 02/29/2020) ORDERED/ADVISED: Order Date 08-13-2019 - [...] the Left Deltoid (Mfg: SEQIRUS lot no. [id number], expires 02/29/2020) ORDERED/ADVISED: Order Date 08-13-2019 - [...] Flakito Estes MD You can download a [employer] melba to your computer and get these books on [employer]. Watch the movie "the magic pill" documentary on [employer] Flakito Estes [employer] and watch [...] Flakito Estes MD You can download a [employer] melba to your computer and get these books on [employer]. Watch the movie "the magic pill" documentary on [employer] and watch it 06/18/2019 09:23:34 Plan printed and provided to patient: PRESCRIBE: ibuprofen 800 mg oral tablet, one po tid with food, # 90, RF: 1. (Transmitted by Colleen Huang DO) Barber christopher PROVIDED HM: CDSMP Given: "the obesity code", " the diabetes code", and "quide to fasting" by Flakito Estes MD You can download a [employer] melba to your computer and get these books on [employer]. Watch the movie "the magic pill" documentary on [employer] and watch it 03/24/2019 08:14:04 Plan printed and provided to patient: PROVIDED HM: CDSMP Given: "the obesity code", " the diabetes code", and "quide to fasting" by Flakito Estes MD You can download a [employer] melba to your [employer] for free. then you can go to [employer] and download books at a reduced jean. [...] Flakito Estes MD You can download a [employer] melba to your [employer] for free. then you can go to [employer] and download books at a reduced jean. [...] Flakito Estes MD You can download a [employer] melba to your [employer] for free. then you can go to [employer] and download books at a reduced jean. [...] with Diabetes Mellitus Given: 9.6% 09/07/2018 08:17:34 [employer] recheck in 3 months PROVIDED HM: Recommendations for Testing HgbA1C in Individuals with Diabetes Mellitus Given: 6.9% 09/07/2018 08:17:34 [facility] recheck in 3 months 07/20/2018 13:54:05 [...] # 12, RF: 3. (Transmitted by Colleen ReinaDO joelle) PRESCRIBE: sertraline 100 mg oral tablet, one po daily, # 90, RF: 3. (Transmitted by Colleen Huang, ) PRESCRIBE: metFORMIN 500 mg oral tablet, one po bid pc, # 180, RF: 3. (Trans mitted by Colleen Huang DO) PRESCRIBE: lisinopril 10 mg oral tablet, one po daily, # 90, RF: 3. (Transmitted by Colleen Reina, ) PRESCRIBE: Linzess 145 mcg oral capsule, one po daily prn constipation, # 90, RF: 3. (Transmitted by Colleen ReinaDO joelle) PRESCRIBE: atorvastatin 10 mg oral tablet, one po daily, # 90, RF: 3. (Transmitted by Colleen PelhamDO joelle) CHANGED Current Meds: Trulicity Pen 1.5 mg/0.5 mL subcutaneous solution REMOVED from Current Meds: Lantus Solostar Pen 100 units/mL subcutaneous solution, 14 units sq daily, # 5, RF: 0. (Transmitted by Colleenpayeverard, ) Date Prescribed: 06/26/2018 REMOVED from Current [...] 3. (Transmitted by Colleen Reina, DO) PRESCRIBE: ProAir HFA 90 mcg/inh inhalation aerosol, two puffs qid prn wheeze, # 1, RF: 3. (Transmitted by Colleen Pelham, DO) PRESCRIBE: metFORMIN 500 mg oral tablet, one po bid pc, # 180, RF: 3. (Transmitted by Colleen Pelham, DO) PRESCRIBE: lisinopril 10 mg oral tablet, one po daily, # 90, RF: 3. (Transmitted by Colleen Reina, DO) PRESCRIBE: Linzess 145 mcg oral capsule, one po daily prn constipation, # 90, RF: 3. (Transmitted by Colleen Pelham, DO) PRESCRIBE: Lantus Solostar Pen 100 units/mL subcutaneous solution, 25 units hs daily, # 5, RF: 5. (Transmitted by Colleenpayeverard, DO) PRESCRIBE: glipiZIDE 10 mg oral tablet, one po daily, # 90, RF: 3. (Transmitted by Colleen Pelham, DO) PRESCRIBE: BD Pen Needle Mini U/F, use as directed for lantus injection, # 100, RF: 3. (Transmitted by Colleen Pelham, DO) PRESCRIBE: atorvastatin 10 mg oral tablet, one po daily, # 90, RF: 3. (Transmitted by Colleen Pelham, DO) He is walking at least a [...] diabetes related complication....14% decrease in risk of VT.....12%decrease risk of stroke...and a 37% decrease risk [...] we have to work with? Time/Travel/Tastes/Treatments?? Arrange: Gis Programmer? www.[email or web address] Dope Heater?www.diabeteseducator.org Pharmacy/Pharmacy benefits Literature? Recipes Diabetes [place] www.diabetes.org www.ncbde.org www.diabeeseducator.org/deap www.ndep.nih.gov www.diabetes.org www.learningaboutdiabetes.org www.diabeticconnect.com www.M:[employer].Moviles.com www.diabeteswhattoknow.com www.peersforprogress.org [place] Read about [...] diabetes related complication....14% decrease in risk of VT.....12%decrease risk of stroke...and a 37% decrease risk [...] we have to work with? Time/Travel/Tastes/Treatments?? Arrange: Gis Programmer? www.eatright.org Dope Heater?www.diabeteseducator.org Pharmacy/Pharmacy benefits Literature? Recipes Diabetes [place] www.diabetes.org www.ncbde.org www.diabeeseducator.org/deap www.ndep.nih.gov www.diabetes.org www.learningaboutdiabetes.org www.diabeticconnect.com www.M:[employer].Moviles.com www.diabeteswhattSendah Directnow.com www.peersforprogress.org [place] Read about tanner [...] diabetes related complication....14% decrease in risk of VT.....12%decrease risk of stroke...and a 37% decrease risk [...] we have to work with? Time/Travel/Tastes/Treatments?? Arrange: Gis Programmer? www.eatright.org Dope Heater?www.diabeteseducator.org Pharmacy/Pharmacy benefits Literature? Recipes Diabetes [place] www.diabetes.org www.ncbde.org www.diabeeseducator.org/deap www.ndep.nih.gov www.diabetes.org www.learningaboutdiabetes.org www.diabeticconnect.com www.whatSendah Directnow.com www.diabeteswhattoknow.com www.peersforprogress.org [place] Read about [...] diabetes related complication....14% decrease in risk of VT.....12%decrease risk of stroke...and a 37% decrease risk [...] we have to work with? Time/Travel/Tastes/Treatments?? Arrange: Gis Programmer? www.eatright.org Dope Heater?www.diabeteseducator.org Pharmacy/Pharmacy benefits Literature? Recipes Diabetes [place] www.diabetes.org www.ncbde.org www.diabeeseducator.org/deap www.ndep.nih.gov www.diabetes.org www.learningaboutdiabetes.org www.diabeticconnect.com www.M:[employer].Moviles.com www.diabeteswhattSendah Directnow.Moviles.com www.peersforprogress.org [place] PROVIDED HM: Obesity: [...] diabetes related complication....14% decrease in risk of VT.....12%decrease risk of stroke...and a 37% decrease risk [...] we have to work with? Time/Travel/Tastes/Treatments?? Arrange: Gis Programmer? www.eatright.org Dope Heater?www.diabeteseducator.org Pharmacy/Pharmacy benefits Literature? Recipes Diabetes [place] www.diabetes.org www.ncbde.org www.diabeeseducator.org/deap www.ndep.nih.gov www.diabetes.org www.learningaboutdiabetes.org www.diabeticconnect.com www.M:[employer].Moviles.com www.diabeteswhattSendah Directnow.com www.peersforprogress.org [place] PROVIDED HM: Obesity: [...] diabetes related complication....14% decrease in risk of VT.....12%decrease risk of stroke...and a 37% decrease risk [...] we have to work with? Time/Travel/Tastes/Treatments?? Arrange: Gis Programmer? www.eatright.org Dope Heater?www.diabeteseducator.org Pharmacy/Pharmacy benefits Literature? Recipes Diabetes [place] www.diabetes.org www.ncbde.org www.diabeeseducator.org/deap www.ndep.nih.gov www.diabetes.org www.learningaboutdiabetes.org www.diabeticconnect.com www.M:[employer].Moviles.com www.diabeteswhattoknow.com www.peersforprogress.org [place] PROVIDED HM: [...] 60, RF: 0. PROVIDED HM: CDSMP Given: Z[employer]os "Addictocarb Carb" Consider the Mediterranean Diet. Eliminate [...] 60, RF: 0. PROVIDED HM: CDSMP Given: Tagwhat"Addictocarb Carb" Consider the Mediterranean Diet. Eliminate soda.....lose [...] 60, RF: 0. PROVIDED HM: CDSMP Given: Z[employer]os "Addictocarb Carb" Consider the Mediterranean Diet. Eliminate [...] 1, RF: 1. (Transmitted by Colleen Huang, [employer] Deutsch) PRESCRIBE: azithromycin 250 mg oral tablet, two po today and one po daily x 4, # 6, RF: 0. (Transmitted by [employer], Bensussen Deutsch) ORDERED/ADVISED: - CXR - PA & Lat [...] support/Move your body/Think positive/Be good to yourself/ [place] [employer] Diabetic Educators....7 behaviors for diabetes [...] support/Move your body/Think positive/Be good to yourself/ [place] [employer]abetic Educators....7 behaviors for diabetes [...] # 6, RF: 0. (Transmitted by Colleen Reina, ) ORDERED/ADVISED: - CXR - PA & [...] support/Move your body/Think positive/Be good to yourself/ [place] [employer] Diabetic Educators....7 behaviors for diabetes [...] the Left Deltoid (Mfg: OTHER lot no. [id number], expires 01/08/2017) PROVIDED HM: Screening for Depression in Adults Given: Not present Percoset script to mg pahn 05/15/2016 08:27:09 Plan printed and provided to patient: PROVIDED VACCINATION: 1 dose of Fluvirin, 0.5 mL IM in the Left Deltoid (Mfg: OTHER lot no. [id number], expires 01/08/2017) PROVIDED HM: Screening for Depression in Adults Given: Not present Percoset script to mg phan 05/15/2016 08:27:09 Plan printed and provided to patient: PROVIDED VACCINATION: 1 dose of Fluvirin, 0.5 mL IM in the Left Deltoid (Mfg: OTHER lot no. [id number], expires 01/08/2017) PROVIDED HM: Screening for Depression [...] pc, # 180, RF: 3. (Transmitted by [employer] The[employer]ard, DO) PRESCRIBE: lisinopril 10 mg oral tablet, one po daily, # 90, RF: 3. (Transmitted by Colleen Pelham, DO) PRESCRIBE: glipiZIDE 10 mg oral tablet, one po daily, # 90, RF: 3. (Transmitted by Colleenpayeverard, DO) PRESCRIBE: cholecalciferol 50,000 intl units oral capsule, one po weekly, # 12, RF: 3. (Transmitted by [employer], DO) PRESCRIBE: atorvastatin 10 mg oral tablet, one po daily, # 90, RF: 3. (Transmitted by [employer], DO) ORDERED/ADVISED: - CBC with diff (automated) [...] # 1, RF: 5. (Transmitted by Colleen Reina, DO) PRESCRIBE: Cortisporin-TC otic suspension, 4 gtts into left EAC bid, # 5, RF: 0. (Transmitted by Colleen Reina, DO) Increase lantus insulin to 24 units [...] daily, # 90, RF: 0. (Transmitted by Colleenpayeverard, DO) PRESCRIBE: glipiZIDE 10 mg oral tablet, [...] the Left Deltoid (Mfg: NOVARTIS lot no. [id number], expires 01/29/2015) ORDERED/ADVISED: - CBC with diff [...] 13:52:33 Instructions printed and provided to patient: ARRANGER ASSEMBLER site consulted prior to scheduled drug [...] bid prn pain, # 60, RF: NONE. ARRANGER ASSEMBLER site consulted prior to scheduled drug [...] Ds) ICD9 Codes (250.00, 600.9, 272.4, 401.9) ARRANGER ASSEMBLER site consulted prior to scheduled drug [...] 45, RF: 3. (Transmitted by Colleen Reina, DO) PRESCRIBE: BD ultrafine needles for byetta injection, one bid as directed, # 180, RF: 3. (Transmitted by [employer], DO) PRESCRIBE: Byetta Prefilled Pen 10 mcg/0.04 mL subcutaneous solution, 10mcg sq bid ac, # 180, RF: 3. (Transmitted by [employer], DO) ORDERED/ADVISED: - CBC with diff (automated) [...] by Colleen Huang DO) [facility] sent to [facility] and 06/19/11. DISCONTINUE: gabapentin 300 [...] ml IM in the L DELTOID (Mfg: [employer] lot no. [id number], expires 02/28/2012) ORDERED/ADVISED: - Urine microalbumin (AODM) [...] PRESCRIBE: Gabapentin 100mg, one or two po [id number] prn back pain, # 180, RF: 5. [...]
--- OUTSIDE RECORDS SUMMARY | 2020-10-17 11:18 | CCD ---
Author Author [facility] Organization [facility] Address Unknown Phone Unavailable Care Team Providers Care Space Physicist Name Role Phone MANNIEW G CHRISTOPHER PA Unavailable Unavailable SYMENOW, G CHRISTOPHER PA Unavailable Unavailable SYMENOW, G CHRISTOPHER PA Unavailable Unavailable SYMENOW, G CHRISTOPHER PA Unavailable Unavailable SYMENOW, G CHRISTOPHER PA Unavailable Unavailable SYMENOW, G CHRISTOPHER PA Unavailable Unavailable SYMENOW, G CHRISTOPHER PA Unavailable Unavailable SYMENOW, G CHRISTOPHER PA Unavailable Unavailable SYMENOW, G CHRISTOPHER PA Unavailable Unavailable SYMENOW, G CHRISTOPHER PA Unavailable Unavailable SYMENOW, G CHRISTOPHER PA Unavailable Unavailable SYMENOW, G CHRISTOPHER PA Unavailable Unavailable SYMENOW, G CHRISTOPHER PA Unavailable Unavailable SYMENOW, G CHRISTOPHER PA Unavailable Unavailable SYMENOW, G CHRISTOPHER PA Unavailable Unavailable SYMENOW, G CHRISTOPHER PA Unavailable Unavailable SYMENOW, G CHRISTOPHER PA Unavailable Unavailable Carina EDOUARD PA Unavailable Unavailable Carina EDOUARD PA Unavailable Unavailable Carina EDOUARD PA Unavailable Unavailable Carina EDOUARD PA Unavailable Unavailable Carina EDOUARD PA Unavailable Unavailable SILKE, L BROOK PA Unavailable Unavailable SILKE, L BROOK PA Unavailable Unavailable SILKE, L BROOK PA Unavailable Unavailable SILKE, L BROOK PA Unavailable Unavailable SILKE, L BROOK PA Unavailable Unavailable SILKE, L BROOK PA Unavailable Unavailable SILKE, L BROOK PA Unavailable Unavailable SILKE, L BROOK PA Unavailable Unavailable SILKE, L BROOK PA Unavailable Unavailable SILKE, L BROOK PA Unavailable Unavailable SILKE, L BROOK PA Unavailable Unavailable SILKE, L BROOK PA Unavailable Unavailable SILKE, L BROOK PA Unavailable Unavailable SILKE, L BROOK PA Unavailable Unavailable JARED, ALE PA Unavailable Unavailable JARED, ALE PA Unavailable Unavailable JARED, ALE PA Unavailable Unavailable JARED, ALE PA Unavailable Unavailable JARED, ALE PA Unavailable Unavailable JARED, ALE PA Unavailable Unavailable JARED, ALE PA Unavailable Unavailable JARED, ALE PA Unavailable Unavailable JARED, ALE PA Unavailable Unavailable JARED, ALE PA Unavailable Unavailable JARED, ALE PA Unavailable Unavailable JARED, ALE PA Unavailable Unavailable JARED, ALE PA Unavailable Unavailable JARED, AEL PA Unavailable Unavailable JARED, ALE PA Unavailable Unavailable MCELHERAN, DIMAS PA Unavailable Unavailable MCELHERAN, DIMAS PA Unavailable Unavailable MCELHERAN, DIMAS PA Unavailable Unavailable MCELHERAN, DIMAS PA Unavailable Unavailable MCELHERAN, DIMAS PA Unavailable Unavailable MCELHERAN, DIMAS PA Unavailable Unavailable MCELHERAN, DIMAS PA Unavailable Unavailable MCELHERAN, DIMAS PA Unavailable Unavailable MCELHERAN, DIMAS PA Unavailable Unavailable MCELHERAN, DIMAS PA Unavailable Unavailable MCELHERAN, DIMAS PA Unavailable Unavailable MCELHERAN, DIMAS PA Unavailable Unavailable MCELHERAN, DIMAS PA Unavailable Unavailable MCELHERAN, DIMAS PA Unavailable Unavailable MCELHERAN, DIMAS PA Unavailable Unavailable MCELHERAN, DIMAS PA Unavailable Unavailable MCELHERAN, DIMAS PA Unavailable Unavailable MCELHERAN, DIMAS PA Unavailable Unavailable MCELHERAN, DIMAS PA Unavailable Unavailable MCELHERAN, DIMAS PA Unavailable Unavailable MCELHERAN, DIMAS PA Unavailable Unavailable MCELHERAN, DIMAS PA Unavailable Unavailable MCELHERAN, DIMAS PA Unavailable Unavailable MCELHERAN, DIMAS PA Unavailable Unavailable MCELHERAN, DIMAS PA Unavailable Unavailable MCELHERAN, DIMAS PA Unavailable Unavailable MCELHERAN, DIMAS PA Unavailable Unavailable MCELHERAN, DIMAS PA Unavailable Unavailable CHELI, A ALAN DO Unavailable Unavailable CHELI, A ALAN DO Unavailable Unavailable CHELI, A ALAN DO Unavailable Unavailable CHELI, A ALAN DO Unavailable Unavailable CHELI, A ALAN DO Unavailable Unavailable CHELI, A ALAN DO Unavailable Unavailable CHELI, A ALAN DO Unavailable Unavailable CHELI, A ALNA DO Unavailable Unavailable CHELI, A ALAN DO Unavailable Unavailable CHELI, A ALAN DO Unavailable Unavailable CHELI, A ALAN DO Unavailable Unavailable CHELI, A ALAN DO Unavailable Unavailable CHELI, A ALAN DO Unavailable Unavailable CHELI, A ALAN DO Unavailable Unavailable CHELI, A ALAN DO Unavailable Unavailable CHELI, A ALAN DO Unavailable Unavailable CHELI, A ALAN DO Unavailable Unavailable CHELI, A ALAN DO Unavailable Unavailable CHELI, A ALAN DO Unavailable Unavailable CHELI, A ALAN DO Unavailable Unavailable CHELI, A ALAN DO Unavailable Unavailable CHELI, A ALAN DO Unavailable Unavailable CHEIL, A ALAN DO Unavailable Unavailable CHELI, A ALAN DO Unavailable Unavailable CHELI, A ALAN DO Unavailable Unavailable CHELI, A ALAN DO Unavailable Unavailable CHELI, A ALAN DO Unavailable Unavailable CHELI, A ALAN DO Unavailable Unavailable CHELI, A ALAN DO Unavailable Unavailable CHELI, A ALAN DO Unavailable Unavailable CHELI, A ALAN DO Unavailable Unavailable CHELI, A ALAN DO Unavailable Unavailable CHELI, A ALAN DO Unavailable Unavailable CHELI, A ALAN DO Unavailable Unavailable CHELI, A ALAN DO Unavailable Unavailable CHELI, A ALAN DO Unavailable Unavailable CHELI, A ALAN DO Unavailable Unavailable CHELI, A ALAN DO Unavailable Unavailable CHELI, A ALAN DO Unavailable Unavailable CHELI, A ALAN DO Unavailable Unavailable CHELI, A ALAN DO Unavailable Unavailable CHELI, A ALAN DO Unavailable Unavailable CHELI, A ALAN DO Unavailable Unavailable CHELI, A ALAN DO Unavailable Unavailable CHELI, A ALAN DO Unavailable Unavailable CHELI, A ALAN DO Unavailable Unavailable CHELI, A ALAN DO Unavailable Unavailable CHELI, A ALAN DO Unavailable Unavailable CHELI, A ALAN DO Unavailable Unavailable CHELI, A ALAN DO Unavailable Unavailable CHELI, A ALAN DO Unavailable Unavailable CHELI, A ALAN DO Unavailable Unavailable CHELI, A ALAN DO Unavailable Unavailable CHELI, A ALAN DO Unavailable Unavailable CHELI, A ALAN DO Unavailable Unavailable CHELI, A ALAN DO Unavailable Unavailable CHELI, A ALAN DO Unavailable Unavailable CHELI, A ALAN DO Unavailable Unavailable CHELI, A ALAN DO Unavailable Unavailable CHELI, A ALAN DO Unavailable Unavailable CHELI, A ALAN DO Unavailable Unavailable CHELI, A ALAN DO Unavailable Unavailable CHELI, A ALAN DO Unavailable Unavailable CHELI, A ALAN DO Unavailable Unavailable LETTIERE, A DIMAS PA Unavailable Unavailable LETTIERE, A DIMAS PA Unavailable Unavailable LETTIERE, A DIMAS PA Unavailable Unavailable LETTIERE, A DIMAS PA Unavailable Unavailable LETTIERE, A DIMAS PA Unavailable Unavailable LETTIERE, A DIMAS PA Unavailable Unavailable LETTIERE, A DIMAS PA Unavailable Unavailable LETTIERE, A DIMAS PA Unavailable Unavailable LETTIERE, A DIMAS PA Unavailable Unavailable LETTIERE, A DIMAS PA Unavailable Unavailable LETTIERE, A DIMAS PA Unavailable Unavailable LETTIERE, A DIMAS PA Unavailable Unavailable LETTIERE, A DIMAS PA Unavailable Unavailable LETTIERE, A DIMAS PA Unavailable Unavailable LETTIERE, A DIMAS PA Unavailable Unavailable LETTIERE, A DIMAS PA Unavailable Unavailable LETTIERE, A DIMAS PA Unavailable Unavailable LETTIERE, A DIMAS PA Unavailable Unavailable LETTIERE, A DIMAS PA Unavailable Unavailable LETTIERE, A DIMAS PA Unavailable Unavailable LETTIERE, A DIMAS PA Unavailable Unavailable LETTIERE, A DIMAS PA Unavailable Unavailable LETTIERE, A DIMAS PA Unavailable Unavailable LETTIERE, A DIMAS PA Unavailable Unavailable LETTIERE, A DIMAS PA Unavailable Unavailable LETTIERE, A DIMAS PA Unavailable Unavailable LETTIERE, A DIMAS PA Unavailable Unavailable LETTIERE, A DIMAS PA Unavailable Unavailable LETTIERE, A DIMAS PA Unavailable Unavailable Re-disclosure Warning The records that you are about to access may contain information from federally-assisted alcohol or drug abuse programs. If such information is present, then the following federally mandated warning applies: This information has been disclosed to you from records protected by federal confidentiality rules (42 CFR part 2). The federal rules prohibit you from making any further disclosure of this information unless further disclosure is expressly permitted by the written consent of the person to whom it pertains or as otherwise permitted by 42 CFR part 2. A general authorization for the release of medical or other information is NOT sufficient for this purpose. The Federal rules restrict any use of the information to criminally investigate or prosecute any alcohol or drug abuse patient.The records that you are about to access may contain highly sensitive health information, the redisclosure of which is protected by Article 27-F of the [facility] Public Health law. If you continue you may have access to information: Regarding HIV / AIDS; Provided by facilities licensed or operated by the [facility] Office of Mental Health; or Provided by the [facility] Office for People With Developmental Disabilities. If such information is present, then the following [facility] mandated warning applies: This information has been disclosed to you from confidential records which are protected by state law. State law prohibits you from making any further disclosure of this information without the specific written consent of the person to whom it pertains, or as otherwise permitted by law. Any unauthorized further disclosure in violation of state law may result in a fine or snf sentence or both. A general authorization for the release of medical or other information is NOT sufficient authorization for further disc losure. Family History Family Member Name Family Member Gender Family Member Status Date o f Status Description Data Source(s) Unknown Unknown Problem [facility] ([facility]) Encounters Encounter Providers Location Date Indications Data Source(s ) Outpatient Attender: ALAN Giller: ALAN BOWER DO EMERGENCY ROOM-LABOTHPROV 10/03/2020 09:27:00 AM EST - 10/03/2020 09:27:00 AM [facility] Office Visit Attender: DIMAS GRACIA Physical Therapy 09/28/2020 09:45:00 AM EST [facility] ([facility] ) Emergency Attender: BROOK Harris: ALAN Hines DO 09/25/2020 11:44:00 AM EST - 09/25/2020 12:53:00 PM [facility] Patient discharged. Outpatient Attender: ALAN Bassett: ALAN BOWER DO EMERGENCY ROOM-LABOTHPROV 08/30/2020 07:49:00 AM EST - 08/30/2020 07:49:00 AM [facility] Outpatient Attender: DIMAS johnson 03/31/2020 01:20:00 PM EDT [facility] ([facility]) Outpatient Attender: ALAN Bassett: ALAN BOWER DO 08/19/2019 08:00:00 AM [facility] Outpatient Attender: ALAN BOWER DO EMERGENCY ROOM-LABOTHP ROV 09/04/2016 11:42:00 AM EST - 09/04/2016 11:42:00 AM EST [facility] Emergency Attender: ALE GRACIA 03/18 09:55:00 AM EDT - 03/18/2013 10:52:00 AM [facility] Emergency Attender: BUBBA GRACIA EMERGENCY ROOM- ER 09/07/2012 06:51:00 PM EST - 09/07/2012 07:40:00 PM [facility] Medications Medication Brand Name Start Date Product Form Dose Route Admi nistrative Instructions Pharmacy Instructions Status Indications Reaction Description Data Source(s) 5-325 mg 09/25/2020 12:00:00 AM EST tablet 12 TAKE ONE TO TWO TABLETS BY MOUTH EVERY 4 TO 6 HOURS WHILE AWAKE MAXIMUM DAILY DOSE = 12 TAKE ONE TO TWO TABLETS BY MOUTH EVERY 4 TO 6 HOURS WHILE AWAKE MAXIMUM DAILY DOSE = 12 SOLD: 09/25/2020 [facility] BLOOD SUGAR DIAGNOSTIC 08/28/2020 12:00:00 AM EST strip 50 DIRECTED TWO TIMES A DAY DIRECTED TWO TIMES A DAY SOLD: 08/28/2020 [facility] BLOOD SUGAR DIAGNOSTIC 08/28/2020 12:00:00 AM EST strip 100 USE TO TEST FOUR TIMES A DAY, BEFORE MEALS AND AT BEDTIME FOR SLIDING SCALE INSULIN USE TO TEST FOUR TIMES A DAY, BEFORE MEALS AND AT BEDTIME FOR SLIDING SCALE INSULIN SOLD: 10/12/2020 [facility] BLOOD SUGAR DIAGNOSTIC 08/28/2020 12:00:00 AM EST strip 100 USE TO TEST FOUR TIMES A DAY, BEFORE MEALS AND AT BEDTIME FOR SLIDING SCALE INSULIN USE TO TEST FOUR TIMES A DAY, BEFORE MEALS AND AT BEDTIME FOR SLIDING SCALE INSULIN SOLD: 09/04/2020 [facility] 25 mg 08/15/2020 12:00:00 AM EST tablet 60 TAKE ONE TABLET BY MOUTH TWICE A DAY NEEDED AND 2 AT BEDTIME TAKE ONE TABLET BY MOUTH TWICE A DAY NEEDED AND 2 AT BEDTIME SOLD: 08/15/2020 [facility] 750 mg 08/13/2020 12:00:00 AM EST tablet 5 TAKE ONE TABLET BY MOUTH EVERY OTHER DAY (EVERY 48 HOURS) TAKE ONE TABLET BY MOUTH EVERY OTHER DAY (EVERY 48 HOURS) SOLD: 08/13/2020 [facility] 31 gauge x 3/16" 08/13/2020 12:00:00 AM EST needle 100 USE DIRECTED MAXIMUM DAILY DOSE = 5 USE DIRECTED MAXIMUM DAILY DOSE = 5 SOLD: 08/13/2020 [facility] BLOOD SUGAR DIAGNOSTIC 08/13/2020 12:00:00 AM EST strip 50 USE TEST STRIP DIRECTED USE TEST STRIP DIRECTED SOLD: 08/13/2020 [facility] 100 unit/mL 08/13/2020 12:00:00 AM EST insulin pen 15 USE PER SLIDING SCALE UNDER THE SKIN BEFORE MEALS AND AT BEDTIME MAXIMUM DAILY DOSE = 25 UNITS USE PER SLIDING SCALE UNDER THE SKIN BEFORE MEALS AND AT BEDTIME MAXIMUM DAILY DOSE = 25 UNITS SOLD: 08/13/2020 [facility] BLOOD-GLUCOSE METER 08/13/2020 12:00:00 AM EST misc 1 USE DIRECTED USE DIRECTED SOLD: 08/13/2020 [facility] 100 unit/mL (3 mL) 08/13/2020 12:00:00 AM EST insulin pen 15 INJECT 20 UNITS UNDER THE SKIN AT BEDTIME (75 DAY SUPPLY) INJECT 20 UNITS UNDER THE SKIN AT BEDTIME (75 DAY SUPPLY) SOLD: 08/13/2020 [facility] 33 gauge 08/13/2020 12:00:00 AM EST misc 100 USE ONE DIRECTED USE ONE DIRECTED SOLD: 08/13/2020 [facility] 150 mg 05/30/2020 12:00:00 AM EDT tablet 2 TAKE 1 TABLET BY MOUTH NOW AND REPEAT IN 5 DAYS TAKE 1 TABLET BY MOUTH NOW AND REPEAT IN 5 DAYS SOLD: 05/30/2020 [facility] 1-0.05 % 05/30/2020 12:00:00 AM EDT cream 30 USE DIRECTED APPLY TO GENITAL AREA TWO TIMES A DAY USE DIRECTED APPLY TO GENITAL AREA TW O TIMES A DAY SOLD: 05/30/2020 [facility] 500 mg 09/08/2019 12:00:00 AM EST tablet 30 TAKE ONE TABLET BY MOUTH THREE TIMES A DAY TAKE ONE TABLET BY MOUTH THREE TIMES A DAY SOLD: 09/08/2019 [facility] Insurance Providers Payer name Policy type / Coverage type Policy ID Covered green party ID Covered green party's relationship to harman Policy Harman Plan Information MEDICARE [id number] SP [id number] [facility] [id number] [facility] [id number] [facility] [id number] [facility] [id number] [employer] [id number] S [id number] [place] [id number] S [id number] [employer] MED[employer] [id number] S [id number] [place] [id number] S [id number] UMR [id number] SPO [id number] UMR [id number] SPO [id number] [employer] [id number] S [id number] [place] [id number] S [id number] [facility] [id number] S [id number] BCBS EMPIRE [id number] S [id number] [facility] [id number] S [id number] MEDICARE [id number] SP [id number] A UMR O [id number] S [id number] MEDICARE C [id number] S [id number] UMR 2 [id number] 2 [id number] 1 [facility] MEDICARE 1 [id number] 1 [id number] [facility] [id number] SP [id number] [facility] [id number] S [id number] BCBS EMPIRE [id number] S [id number] UMR [facility] [id number] SP [id number] MEDICARE [id number] SP [id number] A BCBS EMPIRE KARELY DIV [id number] SP [id number] MEDICARE [id number] SP [id number] [facility] O [id number] S [id number] [facility] [id number] Self [id number] [facility] [place] [facility] [id number] Self [id number] [facility] [id number] Self [id number] [place] [id number] Problems, Conditions, and Diagnoses Code Display Name Description Problem Type Effective Dates Data Source(s) 58075651 Essential hypertension Essential hypertension Problem 09/28/2020 12:00:00 AM EST [facility] ([facility] ) [id number] Pure hypercholesterolemia Pure hypercholesterolemia Pr oblem 09/28/2020 12:00:00 AM EST [facility] ([facility]) K85.90 ACUTE PANCREATITIS WITHOUT NECROSIS OR I ACUTE PANCREATITIS WITHOUT NECROSIS OR I Diagnosis 10/03/2020 09:27:00 AM EST [facility] I10 Essential (primary) hypertension ESSENTIAL (PRIMARY) H YPERTENSION Diagnosis 10/03/2020 09:27:00 AM [facility] E11.65 Type 2 diabetes mellitus with hyperglyce ted TYPE 2 DIABETES MELLITUS WITH HYPERGLYCE Diagnosis 10/03/2020 09:27:00 AM [facility] R01.1 Cardiac murmur, unspecified CARDIAC MURMUR, UNSPECIFIE D Diagnosis 10/03/2020 09:27:00 AM [facility] N18.9 Chronic kidney disease, unspecified CHRONIC KIDN EY DISEASE, UNSPECIFIED Diagnosis 10/03/2020 09:27:00 AM [facility] K80.19 Calculus of gallbladder with other bassam cystitis with obstruction CALCULUS OF GALLBLADDER W OTH CHOLECYSTITIS WITH OBSTRUCTION Diagnosis 10/03/2020 09:27:00 AM [facility] Y93.89 Activity, other specified ACTIVITY, OTHER SPECIFIED Di agnosis 09/25/2020 11:44:00 AM [facility] Y92.[address] in unspeci fied non-institutional (private) residence as the place of occurrence of the external cause UNSP PLACE IN UNSP NON-INSTITUT (PRIVATE) RESIDENC Diagnosis 09/25/2020 11:44:00 AM [facility] l W00.0XXA Fall on same level due to ice and snow, initial encounter FALL ON SAME LEVEL DUE TO ICE AND SNOW, INITIAL EN Diagnosis 09/25/2020 11:44:00 AM [facility] 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 LONGTERM (CU RRENT) USE OF INSULIN Diagnosis 09/25/2020 11:44:00 AM [facility] Z79.899 Other intermediate (current) drug therapy O THER HEAD HOLDER (CURRENT) DRUG THERAPY Diagnosis 09/25/2020 11:44:00 AM [facility] E78.00 PURE HYPERCHOLESTEROLEMIA, UNSPECIFIED P URE HYPERCHOLESTEROLEMIA, UNSPECIFIED Diagnosis 09/25/2020 11:44:00 AM [facility] E11.9 Type 2 diabetes mellitus without complic ations TYPE 2 DIABETES MELLITUS WITHOUT COMPLICATIONS Diagnosis 09/25/2020 11:44:00 AM [facility] robin S43.421A Sprain of right rotator cuff capsule, in itial encounter SPRAIN OF RIGHT ROTATOR CUFF CAPSULE, INITIAL ENCO Diagnosis 09/25/2020 11:44:00 AM [facility] S49.91XA Unspecified injury of right shoulder and upper arm, initial encounter UNSP INJURY OF RIGHT SHOULDER AND UPPER ARM, INIT ENCNTR Diagnosis 09/25/2020 11:44:00 AM [facility] E06.9 Thyroiditis, unspecified THYROIDITIS, UNSPECIFIED Diag nosis 08/30/2020 07:49:00 AM [facility] L29.9 Pruritus, unspecified PRURITUS, UNSPECIFIED Diagnosis 08/30/2020 07:49:00 AM [facility] Surgeries/Procedures Procedure Description Date Indications Data Source(s) ARTHROCENTESIS ASPIR&/INJECTION MAJOR JT/BURSA 021 12:00:00 AM EST [facility] ([facility]) Results ID Date Data Source [id number] 10/12/2020 10:00:00 AM EST [facility] Name Value Range Interpretation Code Description Data Patricia rce(s) Supporting Document(s) SARS coronavirus 2 RNA Not Detected [facility] This lab was ordered by [facility] and reported by [facility]. ID Date Data Source [id number] 10/03/2020 10:41:00 AM [facility] DATE OF EXAMINATION: 10/03/2020 10:03 EST CHEST 2 VIEWS HISTORY: Preop TECHNIQUE: PA and lateral radiographs of the chest COMPARISON: 09/04/2016 FINDINGS: No evidence of focal consolidation, pneumothorax or large pleural effusion.Lungs are clear. Mediastinal structures are unremarkable. No aggressive osseouslesions. IMPRESSION: No focal consolidation. Electronically signed in PS360 by: Rohith Barnhart M.D. 10/03/2020 10:35 EST Name Value Range Interpretation Code Description Data Patricia rce(s) Supporting Document(s) ID Date Data Source [id number] 10/03/2020 10:29:00 AM [facility] Name Value Range Interpretation Code Description Data Patricia rce(s) Supporting Document(s) GLUCOSE 212 mg/dL 74-106 [facility] BLOOD UREA NITROGEN 34 mg/dL 7-18 H [facility] ital CREATININE 1.77 mg/dL 0.7-1.3 [facility] SODIUM 136 mmol/L 136-145 [facility] POTASSIUM 5.1 mmol/L 3.5-5.1 [facility] CHLORIDE 99 mmol/L 98-107 [facility] CO2 28 mmol/L 21-32 [facility] CALCIUM 9.1 mg/dL 8.5-10.1 [facility] ANION GAP 9.0 mmol/L 5-12 [facility] GLOMERULAR FILTRATION RATE 38 mL/min [facility] GFR IS CALCULATED IN mL/min/1.73m2 MIRNA L FUNCTION: >90MILDLY DECREASED: 60-89MILDY TO MODERATELY DECREASED: 45-59 MODERATELY TO SEVERELY DECREASED: 30-44SEVERELY DECREASED: 15-29RENAL FAILURE: <15 AST 20 U/L 15-37 [facility] ALT 41 U/L 12-78 [facility] ALKALINE PHOSPHATASE 84 U/L 46-116 [facility]ital TOTAL BILIRUBIN 0.5 mg/dL 0.2-1.0 [facility] TOTAL PROTEIN 7.5 g/dl 6.4-8.2 [facility] ALBUMIN 4.1 gm/dL 3.4-5.0 [facility] ID Date Data Source [id number] 10/03/2020 10:19:00 AM [facility] Name Value Range Interpretation Code Description Data Patricia rce(s) Supporting Document(s) PARTIAL THROMBOPLASTIN TIME 23.4 SECONDS 21.2-27.3 [facility] ID Date Data Source [id number] 10/03/2020 10:19:00 AM [facility] Name Value Range Interpretation Code Description Data [facility] rce(s) Supporting Document(s) PROTHROMBIN TIME (PATIENT) 10.2 SECONDS 9.1-11.6 [facility] INR 0.98 0.87-1.06 [facility] ID Date Data Source [id number] 10/03/2020 09:57:00 AM [facility] Name Value Range Interpretation Code Description Data Patricia rce(s) Supporting Document(s) WHITE BLOOD COUNT 7.3 K/mm3 4.0-10.0 [facility] al RED BLOOD COUNT 4.64 M/mm3 4.50-6.00 [facility] HEMOGLOBIN 13.9 gm/dL 14.0-18.0 [facility] HEMATOCRIT 41.1 % 42.0-54.0 [facility] MEAN CELL VOLUME 88.6 fl 80-96 [facility] MEAN CORPUSCULAR HEMOGLOBIN 30.0 pg 27.0-31.0 [facility] MEAN CORPUSCULAR HGB CONC 33.8 g/dl 32.0-36.0 [facility] RED CELL DISTRIBUTION WIDTH 12.5 % 10.0-14.5 [facility] PLATELET COUNT 298 K/mm3 172-450 [facility] MEAN PLATELET VOLUME 9.1 fl 9.0-13.0 [facility] pital GRAN % 66.2 % 50-80.0 [facility] IG% 0.3 % 0.0-0.2 [facility] LYMPH % 20.8 % 25.0-50.0 [facility] MONO % 8.0 % 2.0-10.0 [facility] EOS % 4.3 % 0-5.0 [facility] BASO % 0.4 % 0.0-2.0 [facility] GRAN # 4.8 K/mm3 2.0-8.00 [facility] IG# 0.0 K/mm3 0.0-0.2 [facility] LYMPH # 1.5 K/mm3 1.0-5.0 [facility] MONO # 0.6 K/mm3 0.10-1.20 [facility] EOS # 0.3 K/mm3 0.0-0.5 [facility] BASO # 0.0 K/mm3 0.0-0.2 [facility] ID Date Data Source [id number] 09/25/2020 01:16:00 PM [facility] Patient: ESTRELLA MENDOZAforrest ion Report - Physicians/[facility].VisitID: [id number] [place] [address] [phone], MRegistration Date/Time: 09/25/2020 10:53 Weight:117 kg. Height/Length:72 inches. 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 Additional Surgeries:Back Surgery.Foot surgery.Hemorrhoidectomy.Nasal septoplasty.Umbilical Hernia Repair. Medications:Lantus Subcutaneous (Solution 100 unit/mL) 20 u, daily at bedtime, last dose yesterday.MetFORMIN HCl Oral 500 mg, 2x a day, last dose this am.Sertraline HCl Oral 100 mg, daily, last dose last night.Atorvastatin Calcium Oral 10 mg, daily every PM, last dose last night.Lisinopril Oral 10 mg, daily, last dose last night.Aspirin Adult Low Dose Oral (Tablet Delayed Release 81 mg) 1 tablet, daily, last dose last night. Allergies:No Known Drug Allergy. FAMILY HISTORYNegative. No significant family medical history. (Electronically signed by Martin Rdz 09/25/2020 13:13) Name Value Range Interpretation Code Description Data Patricia rce(s) Supporting Document(s) ID Date Data Source [id number] 09/25/2020 12:18:00 PM EST [facility] DATE OF EXAMINATION: 09/25/2020 11:52 EST HISTORY: Fall pain TECHNIQUE: 3 views of the right shoulder were obtained. FINDINGS: No evidence of acute fracture or dislocation. Alignment is normal.Acromioclavicular joint is normal. No aggressive osseous lesions or erosions.Bone mineral density is unremarkable. Visualized lung is clear. Visualized softtissues are normal. IMPRESSION: Moderate osteoarthritis Electronically signed in [id number] by: Rohith Barnhart M.D. 09/25/2020 12:12 EST Name Value Range Interpretation Code Description Data Patricia rce(s) Supporting Document(s) ID Date Data Source [id number] 08/30/2020 09:03:00 AM EST [facility] Name Value Range Interpretation Code Description Data Patricia rce(s) Supporting Document(s) TSH 3.887 uIU/mL 0.36-3.74 H [facility] ID Date Data Source [id number] 08/30/2020 08:46:00 AM EST [facility] Name Value Range Interpretation Code Description Data Patricia rce(s) Supporting Document(s) LIPASE 169 U/L 73-393 [facility] ID Date Data Source [id number] 08/30/2020 08:46:00 AM EST [facility] Name Value Range Interpretation Code Description Data Patricia rce(s) Supporting Document(s) AMYLASE 74 U/L 25-115 [facility] ID Date Data Source [id number] 08/30/2020 08:46:00 AM EST [facility] Name Value Range Interpretation Code Description Data Patricia rce(s) Supporting Document(s) GLUCOSE 157 mg/dL 74-106 H [facility] BLOOD UREA NITROGEN 29 mg/dL 7-18 H [facility] ital CREATININE 1.76 mg/dL 0.7-1.3 H [facility] SODIUM 141 mmol/L 136-145 [facility] POTASSIUM 5.0 mmol/L 3.5-5.1 [facility] CHLORIDE 103 mmol/L 98-107 [facility] CO2 27 mmol/L 21-32 [facility] CALCIUM 9.2 mg/dL 8.5-10.1 [facility] ANION GAP 11.0 mmol/L 5-12 [facility] GLOMERULAR FILTRATION RATE 39 mL/min [facility] GFR IS CALCULATED IN mL/min/1.73m2 MIRNA L FUNCTION: >90MILDLY DECREASED: 60-89MILDY TO MODERATELY DECREASED: 45-59 MODERATELY TO SEVERELY DECREASED: 30-44SEVERELY DECREASED: 15-29RENAL FAILURE: <15 ID Date Data Source [id number] 08/30/2020 08:16:00 AM [facility] Name Value Range Interpretation Code Description Data Patricia rce(s) Supporting Document(s) WHITE BLOOD COUNT 5.4 K/mm3 4.0-10.0 [facility] al RED BLOOD COUNT 4.47 M/mm3 4.50-6.00 L [facility] HEMOGLOBIN 13.5 gm/dL 14.0-18.0 L [facility] HEMATOCRIT 40.1 % 42.0-54.0 L [facility] MEAN CELL VOLUME 89.7 fl 80-96 [facility] MEAN CORPUSCULAR HEMOGLOBIN 30.2 pg 27.0-31.0 [facility] MEAN CORPUSCULAR HGB CONC 33.7 g/dl 32.0-36.0 [facility] RED CELL DISTRIBUTION WIDTH 12.3 % 10.0-14.5 [facility] PLATELET COUNT 323 K/mm3 172-450 [facility] MEAN PLATELET VOLUME 8.9 fl 9.0-13.0 L [facility] pital GRAN % 63.8 % 50-80.0 [facility] IG% 0.2 % 0.0-0.2 [facility] LYMPH % 23.1 % 25.0-50.0 L [facility] MONO % 6.9 % 2.0-10.0 [facility] EOS % 5.6 % 0-5.0 H [facility] BASO % 0.4 % 0.0-2.0 [facility] GRAN # 3.4 K/mm3 2.0-8.00 [facility] IG# 0.0 K/mm3 0.0-0.2 [facility] LYMPH # 1.2 K/mm3 1.0-5.0 [facility] MONO # 0.4 K/mm3 0.10-1.20 [facility] EOS # 0.3 K/mm3 0.0-0.5 [facility] BASO # 0.0 K/mm3 0.0-0.2 [facility] ID Date Data Source [id number] 08/09/2020 01:11:00 AM EST [facility] Name Value Range Interpretation Code Description Data Patricia rce(s) Supporting Document(s) SARS coronavirus 2 RNA [Presence] in Res piratory specimen by ARA with probe detection [facility] This lab was ordered by [facility] a nd reported by [facility]. ID Date Data Source [id number] 03/31/2020 12:15:00 PM EDT [facility] ([facility]) Name Value Range Interpretation Code Description Data Patricia rce(s) Supporting Document(s) Thyroid Stimulating Hormone 2.270 uIU/ML 0.358-3.740 [facility] ([facility], [facility]) Free T4 0.96 ng/dL 0.76-1.46 [facility] ([facility], [facility]) ID Date Data Source [id number] 03/31/2020 12:15:00 PM EDT [facility] ([facility]) Name Value Range Interpretation Code Description Data Patricia rce(s) Supporting Document(s) Glucose, Fasting 166 mg/dL 70-100 [facility] ([facility]) Blood Urea Nitrogen 41 mg/dL 7-18 [facility] ([facility], [facility]) Creatinine For GFR 1.92 mg/dL 0.70-1.30 [facility] ([facility], [facility]) Potassium Serum 5.6 meq/L 3.5-5.1 [facility] ([facility], [facility]) Sodium Level 136 meq/L 136-145 [facility] ([facility]) Glomerular Filtration Rate 37.4 [facility] ([facility], [facility]) <content>Units are mL/min/1.73 m2</content>
<content></content>
<content>Chronic Kidney Disease Staging per NKF:</content>
<content></content>
<content>Stage I & II GFR >=60 Normal to Mildly Decreased</content>
<content>Stage III GFR 30- 59 Moderately Decreased</content>
<content>Stage IV GFR 15-29 Severely Decreased</content>
<content>Stage V GFR <15 Very Little GFR Left</content>
<content>ESRD GFR <15 on HONING MACHINE SET UP OPERATOR TOOL</content>
<content></content> Chloride Level 106 meq/L 98-107 [facility] ([facility], [facility]) Anion Gap 7 meq/L 8-16 [facility] ([facility], [facility]) Carbon Dioxide Level 23 meq/L 21-32 [facility] ([facility], [facility]) Calcium Level 9.1 mg/dL 8.8-10.2 [facility] ([facility], [facility]) Ast/Sgot 24 U/L 7-37 [facility] ([facility], [facility]) Alt/SGPT 29 U/L 12-78 [facility] ([facility], [facility]) Alkaline Phosphatase 55 U/L 45-117 [facility] ([facility], [facility]) Total Protein 7.7 GM/DL 6.4-8.2 [facility] ([facility], [facility]) Bilirubin,Total 0.5 mg/dL 0.2-1.0 [facility] ([facility], [facility]) Albumin/Globulin Ratio 1.3 [facility] ([facility], [facility]) Albumin 4.4 GM/DL 3.2-5.2 [facility] ([facility], [facility]) ID Date Data Source [id number] 03/31/2020 12:15:00 PM EDT [facility] ([facility]) Name Value Range Interpretation Code Description Data Patricia rce(s) Supporting Document(s) Hemoglobin A1c 9.2 % [facility] ([facility]) <content>REFERENCE RANGES:</content><br/ ><content></content>
<content><=5.6% NORMAL</content>
<content>5.7-6.4% SUGGESTS IMPAIRED GLUCOSE METABOLISM/PREDIABETIC</content>
<content>>= 6.5% ABNORMAL</content>
<content></content> Estimated Average Glucose 217 mg/dL 60-110 [facility] ([facility], [facility]) ID Date Data Source [id number] 03/31/2020 12:15:00 PM EDT [facility] ([facility]) Name Value Range Interpretation Code Description Data Patricia rce(s) Supporting Document(s) White Blood Count 6.2 10 4.0-10.0 [facility] ([facility], [facility]) Hemoglobin 14.2 g/dL 13.5-17.5 [facility] ([facility], [facility]) Hematocrit 44.1 % 42.0-52.0 [facility] ([facility], [facility]) Red Blood Count 4.67 10 4.30-6.10 [facility] ([facility], [facility]) Mean Corpuscular Hemoglobin 30.4 pg 27.0-33.0 [facility] ([facility], [facility]) Mean Corpuscular HGB Conc 32.2 g/dL 32.0-36.5 [facility] ([facility]) Mean Corpuscular Volume 94.4 fl 80.0-96.0 M [facility] ([facility], [facility]) Neutrophils % 68.1 % 36.0-66.0 [facility] ([facility], [facility]) Red Cell Distribution Width 12.8 % 11.5-14.5 [facility] ([facility], [facility]) Platelet Count, Automated 292 10 150-450 [facility] ([facility], [facility]) Eos % 3.1 % 0.0-3.0 [facility] ([facility], [facility]) Lymph % 20.1 % 24.0-44.0 [facility] ([facility], [facility]) [place] % 7.8 % 0.0-5.0 [facility] ([facility], [facility]) Baso % 0.6 % 0.0-1.0 [facility] ([facility], [facility]) Immature Granulocyte % 0.3 % 0-3.0 [facility] ([facility], [facility]) Nucleated Red Blood Cell % 0.0 % 0-0 [facility] ([facility], [facility]) [place] # 0.5 10 0.0-0.8 [facility] ([facility], [facility]) Neutrophils # 4.2 10 1.5-8.5 [facility] ([facility], [facility]) Lymph # 1.2 10 1.5-5.0 [facility] ([facility], [facility]) Eos # 0.2 10 0.0-0.5 [facility] ([facility], [facility]) Baso # 0.0 10 0.0-0.2 [facility] ([facility], [facility]) ID Date Data Source [id number] 08/19/2019 08:48:00 AM EST [facility] DATE OF EXAMINATION: 08/19/2019 7:53 EST AORTA AND ILIAC COMPARED TO: No priors HISTORY: Hypertension. Evaluate for aneurysm. Duplex scan was performed using B- mode/duran scale imaging and Doppler spectralanalysis and color flow. The abdominal aorta appears normal throughout its course without any aneurysmaldilatation. Visualized portions of the common iliac arteries are within normallimits. IMPRESSION: Unremarkable abdominal aortic sonogram. Electronically signed in [id number] by: Rohith Barnhart M.D. 08/19/2019 8:42 EST Name Value Range Interpretation Code Description Data Patricia rce(s) Supporting Document(s) Procedure Social History Code Duration Value Status Description Data Source(s ) Smoking 03/31/2020 12:00:00 AM EDT Patient is a former smoker completed Patient is a former smoker [facility] Vital Signs ID Date Data Source UNK Name Value Range Interpretation Code Description Data Source(s) Body height 72 [in_i] 72 [in_i] [facility] ([facility] ) 6'0" Body temperature 97.3 [degF] 97.3 [degF] [facility] ([facility]) Body mass index (BMI) [Ratio] 35.1 kg/m2 35.1 k g/m2 [facility] ([facility]) Body weight 259.00 [lb_av] 259.00 [lb_av] [facility] ([facility]) Body surface area Derived from formula 2.37 m2 2.37 m2 [facility] Body weight 116.575 kg 116.575 kg [facility] ([facility]) [place] body weight 178 [lb_av] 178 [lb_av] [facility] ([facility]) Body mass index (BMI) [Ratio] 34.9 kg/m2 34.9 k g/m2 [facility] ([facility]) Body weight 257.00 [lb_av] 257.00 [lb_av] [facility] ([facility]) Body height 72 [in_i] 72 [in_i] [facility] ([facility]) 6'0" Diastolic blood pressure 68 mm[Hg] 68 mm[Hg] [facility] ([facility]) Systolic blood pressure 132 mm[Hg] 132 mm[Hg] M [facility] ([facility]) Body mass index (BMI) [Ratio] 35.6 kg/m2 35.6 k g/m2 [facility] ([facility]) Body height 71 [in_i] 71 [in_i] [facility] ([facility]) 5'11" Body weight 255.00 [lb_av] 255.00 [lb_av] [facility] ([facility]) Body temperature 96.9 [degF] 96.9 [degF] [facility] Oxygen saturation in Arterial blood by Pulse oximetry 97 % 97 % [facility] ([facility]) Respiratory rate 16 /min 16 /min [facility] ( [facility], [facility]) Heart rate 73 /min 73 /min [facility] ([facility]) Diastolic blood pressure 74 mm[Hg] 74 mm[Hg] [facility] ([facility]) Systolic blood pressure 118 mm[Hg] 118 mm[Hg] M [facility] ([facility], [facility]) ID Date Data Source [id number] 10/03/2020 09:28:00 AM EST [facility] Name Value Range Interpretation Code Description Data Source(s) WEIGHT 120.2 kilos 120.2 kilos [facility] HEIGHT 182.88 centimeters 182.88 centimeter [facility] WEIGHT 120.2 kilos 120.2 kilos [facility] HEIGHT 182.88 centimeters 182.88 centimeter [facility]
[2020-10-17] MEDS ORDERED: BUPIVACAINE HCL 0.25% 30ML VIAL As Ordered ONE (12:48)
[2020-10-17] MEDS ORDERED: HYDR-3715 PO (13:30)
[2020-10-17] MEDS ORDERED: KETOROLAC 60MG 2ML VIAL As Ordered ONE (13:43)
[2020-10-17] MEDS ORDERED: fentaNYL 250 MCG/5 ML INJECTION (J3010) As Ordered ONE (13:43)
[2020-10-17] MEDS ORDERED: METOCLOPRAMIDE INJ 10MG/2ML VIAL (J2765 PER 1) As Ordered ONE (13:43)
[2020-10-17] MEDS ORDERED: ROCURONIUM BROMIDE 50 MG/5 ML VIAL As Ordered ONE (13:43)
[2020-10-17] MEDS ORDERED: LIDOCAINE 2% 100MG/5ML SDV (FOR ANES.) As Ordered ONE (13:43)
[2020-10-17] MEDS ORDERED: MIDAZOLAM INJ 2MG/2ML VIAL (J2250 PER 1MG) As Ordered ONE (13:43)
[2020-10-17] MEDS ORDERED: ONDANSETRON 4MG/2ML VIAL As Ordered ONE ×2 (13:43→16:08)
[2020-10-17] MEDS ORDERED: SUGAMMADEX SODIUM 500 MG/5 ML VIAL (BRIDION) As Ordered ONE (13:43)
[2020-10-17] MEDS ORDERED: propofoL 200 MG/20 ML VIAL As Ordered ONE ×2 (13:43→14:25)
[2020-10-17] MEDS ORDERED: dexameTHASONE 4 MG/ML 1ML VIAL (J1100 PER 1MG) As Ordered ONE (13:43)
[2020-10-17] MEDS ORDERED: ACETAMINOPHEN 1000MG 100ML IV BTL (OFIRMEV) (J0131 PER 10MG) As Ordered ONE (13:45)
[2020-10-17] MEDS ORDERED: ePHEDrine SULFATE 25 MG/5 ML(5MG/ML) SYRINGE As Ordered ONE (13:52)
[2020-10-17] MEDS ORDERED: DESFLURANE 240 ML INHALANT As Ordered ONE (13:56)
[2020-10-17] MEDS ORDERED: LABETALOL 100MG/20ML VIAL As Ordered ONE (14:37)
[2020-10-17] MEDS ORDERED: fentaNYL 100 MCG/2 ML INJECTION (J3010) As Ordered ONE (14:56)
[2020-10-17] MEDS ORDERED: ONDANSETRON 4MG/2ML VIAL IV PRN (16:30)
[2020-10-17] MEDS ORDERED: LR 1,000 ML IV SCH (16:30)
[2020-10-17] MEDS ORDERED: fentaNYL 100 MCG/2 ML INJECTION (J3010) IV PRN (16:30)
[2020-10-17] MEDS: oxyCODONE 5MG TAB PO PRN ×2 (16:36→17:08)
[2020-10-17] MEDS: HYDROMORPHONE HCL 0.5 MG/ 0.5 ML SYRINGE (J1170 PER 1) IV PRN ×2 (16:37→16:52)
[2020-10-17] MEDS ORDERED: ACETAMINOPHEN TAB 650MG DOSE (2X325MG) PO PRN (17:00)
[2020-10-17] MEDS ORDERED: NORCO, ANEXSIA 5/325MG TABLET (HYDROcodone/ACETAMINOPHEN) PO PRN (17:00)
[2020-10-17 18:55] VITALS: BP 119/64
--- NOTE | 2020-10-19 09:18 | RO ---
OPERATIVE NOTE DATE OF OPERATION: 10/17/2020 PREOPERATIVE DIAGNOSIS: Gallstones with recent biliary pancreatitis. POSTOPERATIVE DIAGNOSIS: Gallstones with recent biliary pancreatitis. PROCEDURE: Robotic-assisted laparoscopic cholecystectomy with lysis of adhesions. SURGEON: Arjun Alvarez MD CARBON CLEANER: Telma Dowell. Telma's assistance was essential for management of the da Lelo robotic instrumentation. She was needed for change of instruments, passage of sponges, and placement and retrieval of a specimen retrieval bag as well as closure of the incisions. ANESTHESIA: General. INDICATIONS FOR THE PROCEDURE: The patient is a 70-year-old man who had suffered a recent episode of pancreatitis. He was found to have gallstones as the likely inciting event and he is now for a laparoscopic cholecystectomy. OPERATIVE PROCEDURE: The patient was brought to the operating room and placed on the table in a supine position. He was placed under general endotracheal anesthesia. The patient's abdomen was prepped and draped in sterile fashion. 0.25% Marcaine was infiltrated at each of the trocar sites as needed. A short left upper quadrant transverse incision was made and Veress needle was inserted. After positive hanging drop test, the abdomen was inflated with carbon dioxide gas. An 8 mm robotic port was placed over the scope and advanced through the abdominal wall without difficulty. There were no significant adhesions identified within the abdomen on exam. Three additional 8 mm ports were placed. The second was just above the umbilicus and the remaining two were placed in the right lower quadrant approximately 8-10 cm apart. The patient was rolled to the left slightly and tilted into a reverse Trendelenburg position. The patient car of the da Lleo Xi robot was brought into position and the endoscope arm was docked to the supraumbilical port. The scope was inserted and targeting took place in the right upper quadrant. The remaining robotic arms were docked appropriately and a hook cautery, fenestrated bipolar, and grasping retractor were then inserted. I then moved to the control console to proceed with the operation. There was abundant omental fat folded up over the gallbladder and undersurface of the liver. This was retracted inferiorly. He was found to have multiple adhesions of the surrounding omentum to the gallbladder and these were carefully dissected off using the cautery. The gallbladder was gradually elevated. The patient appeared to have a somewhat pale liver with blunted edges consistent with fibrofatty infiltration. The liver did not displace significantly with elevation of the gallbladder. The neck of the gallbladder was identified and the peritoneum was opened. Dissection was carried through the pericholecystic tissues. Exposure was somewhat difficult in the subhepatic space because of the abundant omentum and the difficulty in elevating the liver at all. The cystic duct was clearly identified but appeared fairly short. A small adjacent arterial branch was identified, which was cauterized and divided but bleeding subsequently occurred and this was then controlled with a hemoclip. The cystic duct was doubly clipped with hemoclips and divided. The gallbladder was then dissected free from the gallbladder bed using the hook cautery. The gallbladder was not perforated in the course of dissection. The dissection was somewhat more difficult than usual. There was some bleeding with an estimated blood loss of perhaps 100 mL total. The gallbladder was placed in an Endopouch. The subhepatic space and right upper quadrant were then copiously irrigated and the irrigation was all removed. Several small bleeding points in the gallbladder bed were controlled with the cautery. Final inspection showed no evidence of bleeding or bile leak. The robotic instruments were then removed. The robot was undocked and withdrawn. I returned to the patient's side. The abdomen was deflated and the patient was returned to a flat position. The ports were removed and the gallbladder was recovered through the supraumbilical site. It was necessary to extend the incision very slightly to allow the gallbladder to pass through the fascial incision. The fascia was then closed with interrupted simple sutures of 1-0 Vicryl. The gallbladder was sent for permanent pathology. The skin incisions were all closed with buried 4-0 Vicryl and Steri-Strips. Light dressings were applied. The patient tolerated the procedure well without apparent complication. He was awakened in the operating room, extubated and moved to the recovery room in stable condition. ALICE
== END 2020-10-17 18:55 | disposition home or self-care (01) ==
LOC: M SDC 11:04
PROVIDERS: ATTEND Surgery
DX: K80.10 Calculus of gallbladder with chronic cholecystitis without obstruction (principal); K66.0 Peritoneal adhesions (postprocedural) (postinfection); I10 Essential (primary) hypertension; E78.5 Hyperlipidemia, unspecified; E11.9 Type 2 diabetes mellitus without complications; Z79.4 Long term (current) use of insulin; Z79.84 Long term (current) use of oral hypoglycemic drugs; Z79.899 Other long term (current) drug therapy; F41.9 Anxiety disorder, unspecified; G47.30 Sleep apnea, unspecified
CPT/HCPCS: 47562; 88304; J0131; J1100; J1170; J1885; J2250; J2405; J2765; J3010; S2900

== ENCOUNTER 2020-10-18 00:45 | Emergency (ER) | payer MEDICARE, OTHER ==
[~2020-10-18] VITALS: Ht 182.9 cm; Wt 121.8 kg
[~2020-10-18 00:45] MED LIST changes: +HYDR-3715 PO; -LIDOCAINE 1% MDV 20ML VIAL SQ PRN; -LR 1,000 ML IV ONE
[2020-10-18 00:46] VITALS: BP 170/92
--- OUTSIDE RECORDS SUMMARY | 2020-10-18 00:58 | CCD ---
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 Public Health law. If you continue you may have access to information: Regarding HIV / AIDS; Provided by facilities licensed or operated by the [facility] Office of Mental Health; or Provided by the [facility] Office for People With Developmental Disabilities. If such information is present, then the following [facility] mandated warning applies: This information has [...] law may result in a fine or nursing home sentence or both. A general authorization for [...] 09:27:00 AM EST - 10/03/2020 09:27:00 AM [facility] Office Visit Attender: DIMAS GRACIA Physical Therapy 09/28/2020 09:45:00 AM EST [facility] ([facility] ) Emergency Attender: BROOK Harris: ALAN Hines DO 09/25/2020 11:44:00 AM EST - 09/25/2020 12:53:00 PM [facility] pital Patient discharged. Outpatient Attender: ALAN Bassett: ALAN BOWER DO EMERGENCY ROOM-LABOTHPROV 08/30/2020 07:49:00 AM EST - 08/30/2020 07:49:00 AM [facility] Outpatient Attender: DIMAS johnson 03/31/2020 01:20:00 PM EDT [facility] ([facility]) Outpatient Attender: ALAN Bassett: ALAN BOWER DO 08/19/2019 08:00:00 AM [facility] Outpatient Attender: ALAN BOWER DO EMERGENCY ROOM-LABOTHP ROV 09/04/2016 11:42:00 AM EST - 09/04/2016 11:42:00 AM EST [facility] Emergency Attender: ALE GRACIA 03/18 09:55:00 AM EDT - 03/18/2013 10:52:00 AM [facility] Emergency Attender: BUBBA GRACIA EMERGENCY ROOM- ER 09/07/2012 06:51:00 PM EST - 09/07/2012 07:40:00 PM [facility] Medications Medication Brand Name Start Date [...] BEDTIME FOR SLIDING SCALE INSULIN SOLD: 10/12/2020 [facility] BLOOD SUGAR DIAGNOSTIC 08/28/2020 12:00:00 AM EST [...] party ID Covered green party's relationship to harmna Policy Harman Plan Information MEDICARE [id number] SP [id number] [facility] [id number] [facility] [id number] MEDICARE [id number] SP [id number] A [facility] [id number] [facility] [id number] [employer] [id number] S [id number] [place] [id number] S [id number] [employer] [id number] S [id number] [place] [id number] S [id number] UMR [id number] SPO [id number] UMR [id number] SPO [id number] [employer] MED[employer] [id number] S [id number] [place] [id number] S [id number] [facility] [id number] S [id number] BCBS EMPIRE [id number] S [id number] [facility] [id number] S [id number] UMR O [id number] S [id number] MEDICARE C [id number] S [id number] UMR 2 [id number] 2 [id number] 1 [employer] MEDICARE 1 [id number] 1 [id number] [facility] [id number] SP [id number] [facility] [id number] S [id number] BCBS EMPIRE [id number] S [id number] UMR [facility] [id number] SP [id number] MEDICARE [id number] SP [id number] A BCBS EMPIRE KARELY DIV [id number] SP [id number] MEDICARE [id number] SP [id number] [facility] O [id number] S [id number] [facility] [place] [facility] [id number] Self [id number] [facility] [place] [facility] [id number] Self [id number] [facility] [place] [employer] [id number] Self [id number] [id number] [place] [id number] Problems, Conditions, and Diagnoses Code Display Name Description Problem Type Effective Dates Data Source(s) 69168173 Essential hypertension Essential hypertension Problem 09/28/2020 12:00:00 AM EST [facility] ([facility] ) 291016357 Pure hypercholesterolemia Pure hypercholesterolemia Pr oblem 09/28/2020 12:00:00 AM EST [facility] ([facility]) K85.90 ACUTE PANCREATITIS WITHOUT NECROSIS OR I ACUTE PANCREATITIS WITHOUT NECROSIS OR I Diagnosis 10/03/2020 09:27:00 AM EST [facility] I10 Essential (primary) hypertension ESSENTIAL (PRIMARY) H YPERTENSION Diagnosis 10/03/2020 09:27:00 AM [facility] E11.65 Type 2 diabetes mellitus with hyperglyce ted TYPE 2 DIABETES MELLITUS WITH HYPERGLYCE Diagnosis 10/03/2020 09:27:00 AM [facility] l R01.1 Cardiac murmur, unspecified CARDIAC MURMUR, UNSPECIFIE D Diagnosis 10/03/2020 09:27:00 AM [facility] N18.9 Chronic kidney disease, unspecified CHRONIC KIDN EY DISEASE, UNSPECIFIED Diagnosis 10/03/2020 09:27:00 AM [facility] K80.19 Calculus of gallbladder with other bassam cystitis with obstruction CALCULUS OF GALLBLADDER W OTH CHOLECYSTITIS WITH OBSTRUCTION Diagnosis 10/03/2020 09:27:00 AM [facility] Y93.89 Activity, other specified ACTIVITY, OTHER SPECIFIED Di agnosis 09/25/2020 11:44:00 AM [facility] Y92.[address] in unspeci fied non-institutional (private) residence as the place of occurrence of the external cause UNSP PLACE IN UNSP NON-INSTITUT (PRIVATE) RESIDENC Diagnosis 09/25/2020 11:44:00 AM [facility] l W00.0XXA Fall on same level due to ice and snow, initial encounter FALL ON SAME LEVEL DUE TO ICE AND SNOW, INITIAL EN Diagnosis 09/25/2020 11:44:00 AM [facility] Z79.4 ocean transportation intermediary (current) use of insulin DETENTION (CU RRENT) USE OF INSULIN Diagnosis 09/25/2020 11:44:00 AM [facility] Z79.899 Other assisted (current) drug therapy O THER TAX COMMISSIONER (CURRENT) DRUG THERAPY Diagnosis 09/25/2020 11:44:00 AM [facility] l E78.00 PURE HYPERCHOLESTEROLEMIA, UNSPECIFIED P URE HYPERCHOLESTEROLEMIA, UNSPECIFIED Diagnosis 09/25/2020 11:44:00 AM [facility] l E11.9 Type 2 diabetes mellitus without complic ations TYPE 2 DIABETES MELLITUS WITHOUT COMPLICATIONS Diagnosis 09/25/2020 11:44:00 AM [facility] robin S43.421A Sprain of right rotator cuff capsule, in itial encounter SPRAIN OF RIGHT ROTATOR CUFF CAPSULE, INITIAL ENCO Diagnosis 09/25/2020 11:44:00 AM [facility] S49.91XA Unspecified injury of right shoulder and upper arm, initial encounter UNSP INJURY OF RIGHT SHOULDER AND UPPER ARM, INIT ENCNTR Diagnosis 09/25/2020 11:44:00 AM [facility] E06.9 Thyroiditis, unspecified THYROIDITIS, UNSPECIFIED Diag nosis 08/30/2020 07:49:00 AM [facility] L29.9 Pruritus, unspecified PRURITUS, UNSPECIFIED Diagnosis 08/30/2020 07:49:00 AM [facility] Surgeries/Procedures Procedure Description Date Indications Data Source(s) ARTHROCENTESIS ASPIR&/INJECTION MAJOR JT/BURSA 021 12:00:00 AM EST [facility] ([facility]) Results ID Date Data Source [id number] 10/12/2020 10:00:00 AM EST [facility] Name Value Range Interpretation Code Description Data Patricia rce(s) Supporting Document(s) SARS coronavirus 2 RNA Not Detected [facility] This lab was ordered by [facility] and reported by [facility]. ID Date Data Source [id number] 10/03/2020 10:41:00 AM [facility] DATE OF EXAMINATION: 10/03/2020 10:03 [...] rce(s) Supporting Document(s) ID Date Data Source [id number] 10/03/2020 10:29:00 AM [facility] Name Value Range Interpretation Code Description Data Patricia rce(s) Supporting Document(s) GLUCOSE 212 mg/dL 74-106 [facility] BLOOD UREA NITROGEN 34 mg/dL 7-18 [facility] ital CREATININE 1.77 mg/dL 0.7-1.3 [facility] SODIUM 136 mmol/L 136-145 [facility] POTASSIUM 5.1 mmol/L 3.5-5.1 [facility] CHLORIDE 99 mmol/L 98-107 [facility] CO2 28 mmol/L 21-32 [facility] CALCIUM 9.1 mg/dL 8.5-10.1 [facility] ANION GAP 9.0 mmol/L 5-12 [facility] GLOMERULAR FILTRATION RATE 38 mL/min [facility] GFR IS CALCULATED IN mL/min/1.73m2 MIRNA L FUNCTION: >90MILDLY DECREASED: 60-89MILDY TO MODERATELY DECREASED: 45-59 MODERATELY TO SEVERELY DECREASED: 30-44SEVERELY DECREASED: 15-29RENAL FAILURE: <15 AST 20 U/L 15-37 [facility] ALT 41 U/L 12-78 [facility] ALKALINE PHOSPHATASE 84 U/L 46-116 [facility] pital TOTAL BILIRUBIN 0.5 mg/dL 0.2-1.0 [facility] TOTAL PROTEIN 7.5 g/dl 6.4-8.2 [facility] ALBUMIN 4.1 gm/dL 3.4-5.0 [facility] ID Date Data Source [id number] 10/03/2020 10:19:00 AM [facility] Name Value Range Interpretation Code Description Data Patricia rce(s) Supporting Document(s) PARTIAL THROMBOPLASTIN TIME 23.4 SECONDS 21.2-27.3 [facility] ID Date Data Source [id number] 10/03/2020 10:19:00 AM [facility] Name Value Range Interpretation Code Description Data [facility] rce(s) Supporting Document(s) PROTHROMBIN TIME (PATIENT) 10.2 SECONDS 9.1-11.6 [facility] INR 0.98 0.87-1.06 [facility] ID Date Data Source [id number] 10/03/2020 09:57:00 AM [facility] Name Value Range Interpretation Code Description Data Patricia rce(s) Supporting Document(s) WHITE BLOOD COUNT 7.3 K/mm3 4.0-10.0 [facility] al RED BLOOD COUNT 4.64 M/mm3 4.50-6.00 [facility] HEMOGLOBIN 13.9 gm/dL 14.0-18.0 [facility] HEMATOCRIT 41.1 % 42.0-54.0 [facility] MEAN CELL VOLUME 88.6 fl 80-96 [facility] MEAN CORPUSCULAR HEMOGLOBIN 30.0 pg 27.0-31.0 [facility] MEAN CORPUSCULAR HGB CONC 33.8 g/dl 32.0-36.0 [facility] RED CELL DISTRIBUTION WIDTH 12.5 % 10.0-14.5 [facility] PLATELET COUNT 298 K/mm3 172-450 [facility] MEAN PLATELET VOLUME 9.1 fl 9.0-13.0 [facility] pital GRAN % 66.2 % 50-80.0 [facility] IG% 0.3 % 0.0-0.2 [facility] LYMPH % 20.8 % 25.0-50.0 L [facility] MONO % 8.0 % 2.0-10.0 [facility] EOS % 4.3 % 0-5.0 [facility] BASO % 0.4 % 0.0-2.0 [facility] GRAN # 4.8 K/mm3 2.0-8.00 [facility] IG# 0.0 K/mm3 0.0-0.2 [facility] LYMPH # 1.5 K/mm3 1.0-5.0 [facility] MONO # 0.6 K/mm3 0.10-1.20 [facility] EOS # 0.3 K/mm3 0.0-0.5 [facility] BASO # 0.0 K/mm3 0.0-0.2 [facility] ID Date Data Source [id number] 09/25/2020 01:16:00 PM [facility] Patient: ESTRELLA MENDOZAforrest ion Report - Physicians/[facility].VisitID: [id number] [place] [address] [phone], MRegistration Date/Time: 09/25/2020 10:53 Weight:117 kg. Height/Length:72 [...] rce(s) Supporting Document(s) ID Date Data Source [id number] 09/25/2020 12:18:00 PM EST [facility] [...] rce(s) Supporting Document(s) ID Date Data Source [id number] 08/30/2020 09:03:00 AM EST [facility] Name Value Range Interpretation Code Description Data Patricia rce(s) Supporting Document(s) TSH 3.887 uIU/mL 0.36-3.74 [facility] ID Date Data Source [id number] 08/30/2020 08:46:00 AM EST [facility] Name Value Range Interpretation Code Description Data Patricia rce(s) Supporting Document(s) LIPASE 169 U/L 73-393 [facility] ID Date Data Source [id number] 08/30/2020 08:46:00 AM EST [facility] Name Value Range Interpretation Code Description Data Patricia rce(s) Supporting Document(s) AMYLASE 74 U/L 25-115 [facility] ID Date Data Source [id number] 08/30/2020 08:46:00 AM EST [facility] Name Value Range Interpretation Code Description Data Patricia rce(s) Supporting Document(s) GLUCOSE 157 mg/dL 74-106 [facility] BLOOD UREA NITROGEN 29 mg/dL 7-18 [facility] ital CREATININE 1.76 mg/dL 0.7-1.3 [facility] SODIUM 141 mmol/L 136-145 [facility] POTASSIUM 5.0 mmol/L 3.5-5.1 [facility] CHLORIDE 103 mmol/L 98-107 [facility] CO2 27 mmol/L 21-32 [facility] CALCIUM 9.2 mg/dL 8.5-10.1 [facility] ANION GAP 11.0 mmol/L 5-12 [facility] GLOMERULAR FILTRATION RATE 39 mL/min [facility] GFR IS CALCULATED IN mL/min/1.73m2 MIRNA L FUNCTION: >90MILDLY DECREASED: 60-89MILDY TO MODERATELY DECREASED: 45-59 MODERATELY TO SEVERELY DECREASED: 30-44SEVERELY DECREASED: 15-29RENAL FAILURE: <15 ID Date Data Source [id number] 08/30/2020 08:16:00 AM [facility] Name Value Range Interpretation Code Description Data Patricia rce(s) Supporting Document(s) WHITE BLOOD COUNT 5.4 K/mm3 4.0-10.0 [facility] al RED BLOOD COUNT 4.47 M/mm3 4.50-6.00 L [facility] HEMOGLOBIN 13.5 gm/dL 14.0-18.0 L [facility] HEMATOCRIT 40.1 % 42.0-54.0 L [facility] MEAN CELL VOLUME 89.7 fl 80-96 [facility] MEAN CORPUSCULAR HEMOGLOBIN 30.2 pg 27.0-31.0 [facility] MEAN CORPUSCULAR HGB CONC 33.7 g/dl 32.0-36.0 [facility] RED CELL DISTRIBUTION WIDTH 12.3 % 10.0-14.5 [facility] PLATELET COUNT 323 K/mm3 172-450 [facility] MEAN PLATELET VOLUME 8.9 fl 9.0-13.0 L [facility] pital GRAN % 63.8 % 50-80.0 [facility] IG% 0.2 % 0.0-0.2 [facility] LYMPH % 23.1 % 25.0-50.0 L [facility] MONO % 6.9 % 2.0-10.0 [facility] EOS % 5.6 % 0-5.0 H [facility] BASO % 0.4 % 0.0-2.0 [facility] GRAN # 3.4 K/mm3 2.0-8.00 [facility] IG# 0.0 K/mm3 0.0-0.2 [facility] LYMPH # 1.2 K/mm3 1.0-5.0 [facility] MONO # 0.4 K/mm3 0.10-1.20 [facility] EOS # 0.3 K/mm3 0.0-0.5 [facility] BASO # 0.0 K/mm3 0.0-0.2 [facility] ID Date Data Source [id number] 08/09/2020 01:11:00 AM EST [facility] Name Value Range Interpretation Code Description Data Patricia rce(s) Supporting Document(s) SARS coronavirus 2 RNA [Presence] in Res piratory specimen by ARA with probe detection [facility] This lab was ordered by [facility] a nd reported by [facility]. ID Date Data Source [id number] 03/31/2020 12:15:00 PM EDT [facility] ([facility], [facility]) Name Value Range Interpretation Code Description Data Patricia rce(s) Supporting Document(s) Thyroid Stimulating Hormone 2.270 uIU/ML 0.358-3.740 [facility] ([facility], [facility]) Free T4 0.96 ng/dL 0.76-1.46 [facility] ([facility], [facility]) ID Date Data Source [id number] 03/31/2020 12:15:00 PM EDT [facility] ([facility]) Name Value Range Interpretation Code Description Data Patricia rce(s) Supporting Document(s) Glucose, Fasting 166 mg/dL 70-100 [facility] ([facility], [facility]) Blood Urea Nitrogen 41 mg/dL 7-18 [facility] ([facility], [facility]) Creatinine For GFR 1.92 mg/dL 0.70-1.30 [facility] ([facility], [facility]) Potassium Serum 5.6 meq/L 3.5-5.1 [facility] ([facility], [facility]) Sodium Level 136 meq/L 136-145 [facility] ([facility]) Glomerular Filtration Rate 37.4 MED [facility] ([facility], [facility]) <content>Units are mL/min/1.73 m2</content>
<content></content>
<content>Chronic Kidney Disease Staging per NKF:</content>
<content></content>
<content>Stage I & II GFR >=60 Normal to Mildly Decreased</content>
<content>Stage III GFR 30- 59 Moderately Decreased</content>
<content>Stage IV GFR 15-29 Severely Decreased</content>
<content>Stage V GFR <15 Very Little GFR Left</content>
<content>ESRD GFR <15 on RATE QUOTING OPERATOR</content>
<content></content> Chloride Level 106 meq/L 98-107 [facility] ([facility], [facility]) Anion Gap 7 meq/L 8-16 [facility] ([facility], [facility]) Carbon Dioxide Level 23 meq/L 21-32 [facility] ([facility], [facility]) Calcium Level 9.1 mg/dL 8.8-10.2 [facility] ([facility], [facility]) Ast/Sgot 24 U/L 7-37 [facility] ([facility], [facility]) Alt/SGPT 29 U/L 12-78 [facility] ([facility], [facility]) Alkaline Phosphatase 55 U/L 45-117 [facility] ([facility], [facility]) Total Protein 7.7 GM/DL 6.4-8.2 [facility] ([facility], [facility]) Bilirubin,Total 0.5 mg/dL 0.2-1.0 [facility] ([facility], [facility]) Albumin/Globulin Ratio 1.3 [facility] ([facility], [facility]) Albumin 4.4 GM/DL 3.2-5.2 [facility] ([facility], [facility]) ID Date Data Source [id number] 03/31/2020 12:15:00 PM EDT [facility] ([facility], [facility]) Name Value Range Interpretation Code Description Data Patricia rce(s) Supporting Document(s) Hemoglobin A1c 9.2 % [facility] ([facility], [facility]) <content>REFERENCE RANGES:</content><br/ ><content></content>
<content><=5.6% NORMAL</content>
<content>5.7-6.4% SUGGESTS IMPAIRED GLUCOSE METABOLISM/PREDIABETIC</content>
<content>>= 6.5% ABNORMAL</content>
<content></content> Estimated Average Glucose 217 mg/dL 60-110 [facility] ([facility], [facility]) ID Date Data Source [id number] 03/31/2020 12:15:00 PM EDT [facility] ([facility], [facility]) Name Value Range Interpretation Code Description Data Patricia rce(s) Supporting Document(s) White Blood Count 6.2 10 4.0-10.0 [facility] ([facility], [facility]) Hemoglobin 14.2 g/dL 13.5-17.5 [facility] ([facility], [facility]) Hematocrit 44.1 % 42.0-52.0 [facility] ([facility], [facility]) Red Blood Count 4.67 10 4.30-6.10 [facility] ([facility], [facility]) Mean Corpuscular Hemoglobin 30.4 pg 27.0-33.0 [facility] ([facility], [facility]) Mean Corpuscular HGB Conc 32.2 g/dL 32.0-36.5 [facility] ([facility], [facility]) Mean Corpuscular Volume 94.4 fl 80.0-96.0 M EDENT ([facility], [facility]) Neutrophils % 68.1 % 36.0-66.0 [facility] ([facility], [facility]) Red Cell Distribution Width 12.8 % 11.5-14.5 [facility] ([facility], [facility]) Platelet Count, Automated 292 10 150-450 [facility] ([facility], [facility]) Eos % 3.1 % 0.0-3.0 [facility] ([facility], [facility]) Lymph % 20.1 % 24.0-44.0 [facility] ([facility], [facility]) [place] % 7.8 % 0.0-5.0 [facility] ([facility], [facility]) Baso % 0.6 % 0.0-1.0 [facility] ([facility], [facility]) Immature Granulocyte % 0.3 % 0-3.0 [facility] ([facility], [facility]) Nucleated Red Blood Cell % 0.0 % 0-0 MED E[facility] ([facility], [facility]) [place] # 0.5 10 0.0-0.8 [facility] ([facility], [facility]) Neutrophils # 4.2 10 1.5-8.5 [facility] ([facility], [facility]) Lymph # 1.2 10 1.5-5.0 [facility] ([facility], [facility]) Eos # 0.2 10 0.0-0.5 [facility] ([facility], [facility]) Baso # 0.0 10 0.0-0.2 [facility] ([facility], [facility]) ID Date Data Source [id number] 08/19/2019 08:48:00 AM EST [facility] [...] smoker completed Patient is a former sm[facility] Vital Signs ID Date Data Source UNK Name Value Range Interpretation Code Description Data Source(s) Body height 72 [in_i] 72 [in_i] [facility] ([facility] ) 6'0" Body temperature 97.3 [degF] 97.3 [degF] [facility] ([facility]) Body mass index (BMI) [Ratio] 35.1 kg/m2 35.1 k g/m2 [facility] ([facility]) Body weight 259.00 [lb_av] 259.00 [lb_av] MEDEN T ([facility]) Body surface area Derived from formula 2.37 m2 2.37 m2 [facility] ([facility]) Body weight 116.575 kg 116.575 kg [facility] ([facility]) [employer] body weight 178 [lb_av] 178 [lb_av] [facility] T ([facility]) Body mass index (BMI) [Ratio] 34.9 kg/m2 34.9 k g/m2 [facility] ([facility]) Body weight 257.00 [lb_av] 257.00 [lb_av] [facility] T ([facility]) Body height 72 [in_i] 72 [in_i] [facility] ([facility]) 6'0" Diastolic blood pressure 68 mm[Hg] 68 mm[Hg] [facility] ([facility]) Systolic blood pressure 132 mm[Hg] 132 mm[Hg] M EDENT ([facility]) Body mass index (BMI) [Ratio] 35.6 kg/m2 35.6 k g/m2 [facility] ([facility]) Body height 71 [in_i] 71 [in_i] [facility] ([facility]) 5'11" Body weight 255.00 [lb_av] 255.00 [lb_av] [facility] T ([facility], [facility]) Body temperature 96.9 [degF] 96.9 [degF] [facility], [facility]) Oxygen saturation in Arterial blood by Pulse oximetry 97 % 97 % [facility] ([facility], [facility]) Respiratory rate 16 /min 16 /min [facility] ( [facility], [facility]) Heart rate 73 /min 73 /min [facility] ([facility], [facility]) Diastolic blood pressure 74 mm[Hg] 74 mm[Hg] [facility] ([facility], [facility]) Systolic blood pressure 118 mm[Hg] 118 mm[Hg] M BLAISE ([facility], [facility]) ID Date Data Source [id number] 10/03/2020 09:28:00 AM EST [facility] Name Value Range Interpretation Code Description Data Source(s) WEIGHT 120.2 kilos 120.2 kilos [facility] HEIGHT 182.88 centimeters 182.88 centimeter [facility] WEIGHT 120.2 kilos 120.2 kilos [facility] HEIGHT 182.88 centimeters 182.88 centimeter [facility]
--- OUTSIDE RECORDS SUMMARY | 2020-10-18 02:15 | CCD ---
Author Author [facility] Organization [facility] Address Unknown Phone Unavailable Care Team Providers Care Glove Pairer Name Role Phone MANNIEW G CHRISTOPHER PA [...] A DIMAS PA Unavailable Unavailable LETTIERE, A IDMAS PA Unavailable Unavailable LETTIERE, A DIMAS PA [...] is protected by Article 27-F of the [facility] Public Health law. If you continue you may have access to information: Regarding HIV / AIDS; Provided by facilities licensed or operated by the [facility] Office of Mental Health; or Provided by the [facility] Office for People With Developmental Disabilities. If such information is present, then the following [facility] mandated warning applies: This information has [...] law may result in a fine or prison sentence or both. A general authorization for [...] 09:27:00 AM EST - 10/03/2020 09:27:00 AM [facility] Office Visit Attender: DIMAS GRACIA Physical Therapy 09/28/2020 09:45:00 AM EST [facility] ([facility] ) Emergency Attender: BROOK Harris: ALAN Hines DO 09/25/2020 11:44:00 AM EST - 09/25/2020 12:53:00 PM [facility] pital Patient discharged. Outpatient Attender: ALAN Bassett: ALAN BOWER DO EMERGENCY ROOM-LABOTHPROV 08/30/2020 07:49:00 AM EST - 08/30/2020 07:49:00 AM [facility] Outpatient Attender: DIMAS johnson 03/31/2020 01:20:00 PM EDT [facility] ([facility] Outpatient Attender: ALAN Bassett: ALAN BOWER DO 08/19/2019 08:00:00 AM [facility] Outpatient Attender: ALAN BOWER DO EMERGENCY ROOM-LABOTHP ROV 09/04/2016 11:42:00 AM EST - 09/04/2016 11:42:00 AM EST [facility] Emergency Attender: ALE GRACIA 03/18 09:55:00 AM EDT - 03/18/2013 10:52:00 AM [facility] Emergency Attender: BUBBA GRACIA EMERGENCY ROOM- ER 09/07/2012 06:51:00 PM EST - 09/07/2012 07:40:00 PM [facility] Medications Medication Brand Name Start Date [...] BEDTIME FOR SLIDING SCALE INSULIN SOLD: 10/12/2020 [facility] BLOOD SUGAR DIAGNOSTIC 08/28/2020 12:00:00 AM EST [...] to harman Policy Harman Plan Information MEDICARE [id number] SP [id number] [facility] [id number] [facility] [id number] MEDICARE [id number] SP [id number] A [facility] [id number] [facility] [id number] [employer] [id number] S [id number] [place] [id number] S [id number] [employer] MED[employer]ARE [employer]ISION [id number] S [id number] [place] [id number] S [id number] UMR [id number] SPO [id number] UMR [id number] SPO [id number] [employer] MED[employer]ARE [employer]ISION [id number] S [id number] [place] [id number] S [id number] [facility] [id number] S [id number] BCBS EMPIRE [id number] S [id number] [facility] [id number] S [id number] UMR O [id number] S [id number] MEDICARE C [id number] S [id number] UMR 2 [id number] 2 [id number] 1 [employer] MEDICARE 1 [id number] 1 [id number] [employer] [id number] SP [id number] UNITED [employer] [id number] S [id number] BCBS EMPIRE [id number] S [id number] UMR [facility] [id number] SP [id number] MEDICARE [id number] SP [id number] A BCBS EMPIRE KARELY DIV [id number] SP [id number] MEDICARE [id number] SP [id number] [facility] O [id number] S [id number] [facility] [employer] [id number] Self [id number] [facility] [employer] [id number] Self [id number] [facility] [employer] [id number] Self [id number] [id number] [place] [id number] Problems, Conditions, and Diagnoses Code Display Name Description Problem Type Effective Dates Data Source(s) 50258447 Essential hypertension Essential hypertension Problem 09/28/2020 12:00:00 AM EST [facility] ([facility] ) [id number] Pure hypercholesterolemia Pure hypercholesterolemia Pr oblem 09/28/2020 12:00:00 AM EST [facility] ([facility]) K85.90 ACUTE PANCREATITIS WITHOUT NECROSIS OR I ACUTE PANCREATITIS WITHOUT NECROSIS OR I Diagnosis 10/03/2020 09:27:00 AM EST [facility] I10 Essential (primary) hypertension ESSENTIAL (PRIMARY) H YPERTENSION Diagnosis 10/03/2020 09:27:00 AM [facility] E11.65 Type 2 diabetes mellitus with hyperglyce ted TYPE 2 DIABETES MELLITUS WITH HYPERGLYCE Diagnosis 10/03/2020 09:27:00 AM [facility] l R01.1 Cardiac murmur, unspecified CARDIAC MURMUR, UNSPECIFIE D Diagnosis 10/03/2020 09:27:00 AM [facility] N18.9 Chronic kidney disease, unspecified CHRONIC KIDN EY DISEASE, UNSPECIFIED Diagnosis 10/03/2020 09:27:00 AM [facility] K80.19 Calculus of gallbladder with other bassam cystitis with obstruction CALCULUS OF GALLBLADDER W OTH CHOLECYSTITIS WITH OBSTRUCTION Diagnosis 10/03/2020 09:27:00 AM [facility] Y93.89 Activity, other specified ACTIVITY, OTHER SPECIFIED Di agnosis 09/25/2020 11:44:00 AM [facility] Y92.[address] in unspeci fied non-institutional (private) residence as the place of occurrence of the external cause UNSP PLACE IN UNSP NON-INSTITUT (PRIVATE) RESIDENC Diagnosis 09/25/2020 11:44:00 AM [facility] l W00.0XXA Fall on same level due to ice and snow, initial encounter FALL ON SAME LEVEL DUE TO ICE AND SNOW, INITIAL EN Diagnosis 09/25/2020 11:44:00 AM [facility] 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 HALF-WAY (CU RRENT) USE OF INSULIN Diagnosis 09/25/2020 11:44:00 AM [facility] Z79.899 Other penitentiary (current) drug therapy O [facility] (CURRENT) DRUG THERAPY Diagnosis 09/25/2020 11:44:00 AM [facility] l E78.00 PURE HYPERCHOLESTEROLEMIA, UNSPECIFIED P URE HYPERCHOLESTEROLEMIA, UNSPECIFIED Diagnosis 09/25/2020 11:44:00 AM [facility] l E11.9 Type 2 diabetes mellitus without complic ations TYPE 2 DIABETES MELLITUS WITHOUT COMPLICATIONS Diagnosis 09/25/2020 11:44:00 AM [facility] robin S43.421A Sprain of right rotator cuff capsule, in itial encounter SPRAIN OF RIGHT ROTATOR CUFF CAPSULE, INITIAL ENCO Diagnosis 09/25/2020 11:44:00 AM [facility] S49.91XA Unspecified injury of right shoulder and upper arm, initial encounter UNSP INJURY OF RIGHT SHOULDER AND UPPER ARM, INIT ENCNTR Diagnosis 09/25/2020 11:44:00 AM [facility] E06.9 Thyroiditis, unspecified THYROIDITIS, UNSPECIFIED Diag nosis 08/30/2020 07:49:00 AM [facility] L29.9 Pruritus, unspecified PRURITUS, UNSPECIFIED Diagnosis 08/30/2020 07:49:00 AM [facility] Surgeries/Procedures Procedure Description Date Indications Data Source(s) ARTHROCENTESIS ASPIR&/INJECTION MAJOR JT/BURSA 021 12:00:00 AM EST [facility] ([facility]) Results ID Date Data Source [id number] 10/12/2020 10:00:00 AM EST [facility] Name Value Range Interpretation Code Description Data Patricia rce(s) Supporting Document(s) SARS coronavirus 2 RNA Not Detected [facility] This lab was ordered by [facility] and reported by [facility]. ID Date Data Source [id number] 10/03/2020 10:41:00 AM [facility] DATE OF EXAMINATION: 10/03/2020 10:03 [...] rce(s) Supporting Document(s) ID Date Data Source [id number] 10/03/2020 10:29:00 AM [facility] Name Value Range Interpretation Code Description Data Patricia rce(s) Supporting Document(s) GLUCOSE 212 mg/dL 74-106 H [facility] BLOOD UREA NITROGEN 34 mg/dL 7-18 H [facility] ital CREATININE 1.77 mg/dL 0.7-1.3 [facility] SODIUM 136 mmol/L 136-145 [facility] POTASSIUM 5.1 mmol/L 3.5-5.1 [facility] CHLORIDE 99 mmol/L 98-107 [facility] CO2 28 mmol/L 21-32 [facility] CALCIUM 9.1 mg/dL 8.5-10.1 [facility] ANION GAP 9.0 mmol/L 5-12 [facility] GLOMERULAR FILTRATION RATE 38 mL/min [facility] GFR IS CALCULATED IN mL/min/1.73m2 MIRNA L FUNCTION: >90MILDLY DECREASED: 60-89MILDY TO MODERATELY DECREASED: 45-59 MODERATELY TO SEVERELY DECREASED: 30-44SEVERELY DECREASED: 15-29RENAL FAILURE: <15 AST 20 U/L 15-37 [facility] ALT 41 U/L 12-78 [facility] ALKALINE PHOSPHATASE 84 U/L 46-116 [facility] pital TOTAL BILIRUBIN 0.5 mg/dL 0.2-1.0 [facility] TOTAL PROTEIN 7.5 g/dl 6.4-8.2 [facility] ALBUMIN 4.1 gm/dL 3.4-5.0 [facility] ID Date Data Source [id number] 10/03/2020 10:19:00 AM [facility] Name Value Range Interpretation Code Description Data Patricia rce(s) Supporting Document(s) PARTIAL THROMBOPLASTIN TIME 23.4 SECONDS 21.2-27.3 [facility] ID Date Data Source [id number] 10/03/2020 10:19:00 AM [facility] Name Value Range Interpretation Code Description Data [facility] rce(s) Supporting Document(s) PROTHROMBIN TIME (PATIENT) 10.2 SECONDS 9.1-11.6 [facility] INR 0.98 0.87-1.06 [facility] ID Date Data Source [id number] 10/03/2020 09:57:00 AM [facility] Name Value Range Interpretation Code Description Data Patricia rce(s) Supporting Document(s) WHITE BLOOD COUNT 7.3 K/mm3 4.0-10.0 [facility] RED BLOOD COUNT 4.64 M/mm3 4.50-6.00 [facility] HEMOGLOBIN 13.9 gm/dL 14.0-18.[address] [facility] HEMATOCRIT 41.1 % 42.0-54.[address] [facility] MEAN CELL VOLUME 88.6 fl 80-96 [facility] MEAN CORPUSCULAR HEMOGLOBIN 30.0 pg 27.0-31.0 [facility] MEAN CORPUSCULAR HGB CONC 33.8 g/dl 32.0-36.0 [facility] RED CELL DISTRIBUTION WIDTH 12.5 % 10.0-14.5 [facility] PLATELET COUNT 298 K/mm3 172-450 [facility] MEAN PLATELET VOLUME 9.1 fl 9.0-13.0 [facility] pital GRAN % 66.2 % 50-80.0 [facility] IG% 0.3 % 0.0-0.2 [facility] LYMPH % 20.8 % 25.0-50.0 L [facility] MONO % 8.0 % 2.0-10.0 [facility] EOS % 4.3 % 0-5.0 [facility] BASO % 0.4 % 0.0-2.0 [facility] GRAN # 4.8 K/mm3 2.0-8.00 [facility] IG# 0.0 K/mm3 0.0-0.2 [facility] LYMPH # 1.5 K/mm3 1.0-5.0 [facility] MONO # 0.6 K/mm3 0.10-1.20 [facility] EOS # 0.3 K/mm3 0.0-0.5 [facility] BASO # 0.0 K/mm3 0.0-0.2 [facility] ID Date Data Source [id number] 09/25/2020 01:16:00 PM [facility] Patient: ESTRELLA MENDOZAforrest ion Report - Physicians/Mid Levels [facility].VisitID: [id number] [place] [address] [phone], MRegistration Date/Time: 09/25/2020 10:53 Weight:117 kg. Height/Length:72 [...] rce(s) Supporting Document(s) ID Date Data Source [id number] 09/25/2020 12:18:00 PM EST [facility] [...] rce(s) Supporting Document(s) ID Date Data Source [id number] 08/30/2020 09:03:00 AM EST [facility] Name Value Range Interpretation Code Description Data Patricia rce(s) Supporting Document(s) TSH 3.887 uIU/mL 0.36-3.74 [facility] ID Date Data Source [id number] 08/30/2020 08:46:00 AM EST [facility] Name Value Range Interpretation Code Description Data Patricia rce(s) Supporting Document(s) LIPASE 169 U/L 73-393 [facility] ID Date Data Source [id number] 08/30/2020 08:46:00 AM EST [facility] Name Value Range Interpretation Code Description Data Patricia rce(s) Supporting Document(s) AMYLASE 74 U/L 25-115 [facility] ID Date Data Source [id number] 08/30/2020 08:46:00 AM EST [facility] Name Value Range Interpretation Code Description Data Patricia rce(s) Supporting Document(s) GLUCOSE 157 mg/dL 74-106 [facility] BLOOD UREA NITROGEN 29 mg/dL 7-18 H [facility] ital CREATININE 1.76 mg/dL 0.7-1.3 [facility] SODIUM 141 mmol/L 136-145 [facility] POTASSIUM 5.0 mmol/L 3.5-5.1 [facility] CHLORIDE 103 mmol/L 98-107 [facility] CO2 27 mmol/L 21-32 [facility] CALCIUM 9.2 mg/dL 8.5-10.1 [facility] ANION GAP 11.0 mmol/L 5-12 [facility] GLOMERULAR FILTRATION RATE 39 mL[facility]min [facility] GFR IS CALCULATED IN mL/min/1.73m2 MIRNA L FUNCTION: >90MILDLY DECREASED: 60-89MILDY TO MODERATELY DECREASED: 45-59 MODERATELY TO SEVERELY DECREASED: 30-44SEVERELY DECREASED: 15-29RENAL FAILURE: <15 ID Date Data Source [id number] 08/30/2020 08:16:00 AM [facility] Name Value Range Interpretation Code Description Data Patricia rce(s) Supporting Document(s) WHITE BLOOD COUNT 5.4 K/mm3 4.0-10.0 [facility] RED BLOOD COUNT 4.47 M/mm3 4.50-6.00 L [facility] HEMOGLOBIN 13.5 gm/dL 14.0-18.0 L [facility] HEMATOCRIT 40.1 % 42.0-54.0 L [facility] MEAN CELL VOLUME 89.7 fl 80-96 [facility] MEAN CORPUSCULAR HEMOGLOBIN 30.2 pg 27.0-31.0 [facility] MEAN CORPUSCULAR HGB CONC 33.7 g/dl 32.0-36.0 [facility] RED CELL DISTRIBUTION WIDTH 12.3 % 10.0-14.5 [facility] PLATELET COUNT 323 K/mm3 172-450 [facility] MEAN PLATELET VOLUME 8.9 fl 9.0-13.0 L [facility] pital GRAN % 63.8 % 50-80.0 [facility] IG% 0.2 % 0.0-0.2 [facility] LYMPH % 23.1 % 25.0-50.0 L [facility] MONO % 6.9 % 2.0-10.0 [facility] EOS % 5.6 % 0-5.0 H [facility] BASO % 0.4 % 0.0-2.0 [facility] GRAN # 3.4 K/mm3 2.0-8.00 [facility] IG# 0.0 K/mm3 0.0-0.2 [facility] LYMPH # 1.2 K/mm3 1.0-5.0 [facility] MONO # 0.4 K/mm3 0.10-1.20 [facility] EOS # 0.3 K/mm3 0.0-0.5 [facility] BASO # 0.0 K/mm3 0.0-0.2 [facility] ID Date Data Source [id number] 08/09/2020 01:11:00 AM EST [facility] Name Value Range Interpretation Code Description Data Patricia rce(s) Supporting Document(s) SARS coronavirus 2 RNA [Presence] in Res piratory specimen by ARA with probe detection [facility] This lab was ordered by [facility] a nd reported by [facility] ID Date Data Source [id number] 03/31/2020 12:15:00 PM EDT [facility] ([facility], [facility]) Name Value Range Interpretation Code Description Data Patricia rce(s) Supporting Document(s) Thyroid Stimulating Hormone 2.270 uIU/ML 0.358-3.740 [facility] ([facility], [facility]) Free T4 0.96 ng/dL 0.76-1.46 [facility] ([facility], [facility]) ID Date Data Source [id number] 03/31/2020 12:15:00 PM EDT [facility] ([facility]) Name Value Range Interpretation Code Description Data Patricia rce(s) Supporting Document(s) Glucose, Fasting 166 mg/dL 70-100 [facility] ([facility], [facility]) Blood Urea Nitrogen 41 mg/dL 7-18 [facility] ([facility], [facility]) Creatinine For GFR 1.92 mg/dL 0.70-1.30 [facility] ([facility], [facility]) Potassium Serum 5.6 meq/L 3.5-5.1 [facility] ([facility], [facility]) Sodium Level 136 meq/L 136-145 [facility] ([facility]) Glomerular Filtration Rate 37.4 MED [facility] ([facility], [facility]) <content>Units are mL/min/1.73 m2</content>
<content></content>
<content>Chronic Kidney Disease Staging per NKF:</content>
<content></content>
<content>Stage I & II GFR >=60 Normal to Mildly Decreased</content>
<content>Stage III GFR 30- 59 Moderately Decreased</content>
<content>Stage IV GFR 15-29 Severely Decreased</content>
<content>Stage V GFR <15 Very Little GFR Left</content>
<content>ESRD GFR <15 on DISTRIBUTION OPERATIONS SUPERVISOR</content>
<content></content> Chloride Level 106 meq/L 98-107 [facility] ([facility], [facility]) Anion Gap 7 meq/L 8-16 [facility] ([facility], [facility]) Carbon Dioxide Level 23 meq/L 21-32 [facility] ([facility], [facility]) Calcium Level 9.1 mg/dL 8.8-10.2 [facility] ([facility], [facility]) Ast/Sgot 24 U/L 7-37 [facility] ([facility], [facility]) Alt/SGPT 29 U/L 12-78 [facility] ([facility], [facility]) Alkaline Phosphatase 55 U/L 45-117 [facility] ([facility], [facility]) Total Protein 7.7 GM/DL 6.4-8.2 [facility] ([facility], [facility]) Bilirubin,Total 0.5 mg/dL 0.2-1.0 [facility] ([facility], [facility]) Albumin/Globulin Ratio 1.3 [facility] ([facility], [facility]) Albumin 4.4 GM/DL 3.2-5.2 [facility] ([facility], [facility]) ID Date Data Source [id number] 03/31/2020 12:15:00 PM EDT [facility] ([facility], [facility]) Name Value Range Interpretation Code Description Data Patricia rce(s) Supporting Document(s) Hemoglobin A1c 9.2 % [facility] ([facility], [facility]) <content>REFERENCE RANGES:</content><br/ ><content></content>
<content><=5.6% NORMAL</content>
<content>5.7-6.4% SUGGESTS IMPAIRED GLUCOSE METABOLISM/PREDIABETIC</content>
<content>>= 6.5% ABNORMAL</content>
<content></content> Estimated Average Glucose 217 mg/dL 60-110 [facility] ([facility], [facility]) ID Date Data Source [id number] 03/31/2020 12:15:00 PM EDT [facility] ([facility], [facility]) Name Value Range Interpretation Code Description Data Patricia rce(s) Supporting Document(s) White Blood Count 6.2 10 4.0-10.0 [facility] ([facility], [facility]) Hemoglobin 14.2 g/dL 13.5-17.5 [facility] ([facility], [facility]) Hematocrit 44.1 % 42.0-52.0 [facility] ([facility], [facility]) Red Blood Count 4.67 10 4.30-6.10 [facility] ([facility], [facility]) Mean Corpuscular Hemoglobin 30.4 pg 27.0-33.0 [facility] ([facility], [facility]) Mean Corpuscular HGB Conc 32.2 g/dL 32.0-36.5 [facility] ([facility], [facility]) Mean Corpuscular Volume 94.4 fl 80.0-96.0 M EDENT ([facility], [facility]) Neutrophils % 68.1 % 36.0-66.0 [facility] ([facility], [facility]) Red Cell Distribution Width 12.8 % 11.5-14.5 [facility] ([facility], [facility]) Platelet Count, Automated 292 10 150-450 [facility] ([facility], [facility]) Eos % 3.1 % 0.0-3.0 [facility] ([facility], [facility]) Lymph % 20.1 % 24.0-44.0 [facility] ([facility], [facility]) Ponce % 7.8 % 0.0-5.0 [facility] ([facility], [facility]) Baso % 0.6 % 0.0-1.0 [facility] ([facility], [facility]) Immature Granulocyte % 0.3 % 0-3.0 [facility] ([facility], [facility]) Nucleated Red Blood Cell % 0.0 % 0-0 MED [facility] ([facility], [facility]) Ponce # 0.5 10 0.0-0.8 [facility] ([facility], [facility]) Neutrophils # 4.2 10 1.5-8.5 [facility] ([facility], [facility]) Lymph # 1.2 10 1.5-5.0 [facility] ([facility], [facility]) Eos # 0.2 10 0.0-0.5 [facility] ([facility], [facility]) Baso # 0.0 10 0.0-0.2 [facility] ([facility], [facility]) ID Date Data Source [id number] 08/19/2019 08:48:00 AM EST [facility] [...] smoker completed Patient is a former sm[facility] Vital Signs ID Date Data Source UNK Name Value Range Interpretation Code Description Data Source(s) Body height 72 [in_i] 72 [in_i] [facility] ([facility] 6'0" Body temperature 97.3 [degF] 97.3 [degF] [facility] ([facility]) Body mass index (BMI) [Ratio] 35.1 kg/m2 35.1 k g/m2 [facility] ([facility]) Body weight 259.00 [lb_av] 259.00 [lb_av] MEDEN T ([facility]) Body surface area Derived from formula 2.37 m2 2.37 m2 [facility] ([facility]) Body weight 116.575 kg 116.575 kg [facility] ([facility]) [place] body weight 178 [lb_av] 178 [lb_av] MED[facility] T ([facility]) Body mass index (BMI) [Ratio] 34.9 kg/m2 34.9 k g/m2 [facility] ([facility]) Body weight 257.00 [lb_av] 257.00 [lb_av] MED[facility] T ([facility]) Body height 72 [in_i] 72 [in_i] [facility] ([facility]) 6'0" Diastolic blood pressure 68 mm[Hg] 68 mm[Hg] [facility] ([facility]) Systolic blood pressure 132 mm[Hg] 132 mm[Hg] M EDENT ([facility]) Body mass index (BMI) [Ratio] 35.6 kg/m2 35.6 k g/m2 [facility] ([facility]) Body height 71 [in_i] 71 [in_i] [facility] ([facility]) 5'11" Body weight 255.00 [lb_av] 255.00 [lb_av] MED[facility] T ([facility], [facility]) Body temperature 96.9 [degF] 96.9 [degF] [facility], [facility]) Oxygen saturation in Arterial blood by Pulse oximetry 97 % 97 % [facility] ([facility], [facility]) Respiratory rate 16 /min 16 /min [facility] ( [facility], [facility]) Heart rate 73 /min 73 /min [facility] ([facility], [facility]) Diastolic blood pressure 74 mm[Hg] 74 mm[Hg] [facility] ([facility], [facility]) Systolic blood pressure 118 mm[Hg] 118 mm[Hg] M BLAISE ([facility], [facility]) ID Date Data Source [id number] 10/03/2020 09:28:00 AM [facility] Name Value Range Interpretation Code Description Data Source(s) WEIGHT 120.2 kilos 120.2 kilos [facility] HEIGHT 182.88 centimeters 182.88 centimeter [facility] WEIGHT 120.2 kilos 120.2 kilos [facility] HEIGHT 182.88 centimeters 182.88 centimeter [facility]
== END 2020-10-18 02:20 | disposition home or self-care (01) ==
LOC: M ED 00:45
DX: R10.9 Unspecified abdominal pain (principal); G89.18 Other acute postprocedural pain; I10 Essential (primary) hypertension; E11.9 Type 2 diabetes mellitus without complications; Z79.4 Long term (current) use of insulin; Z79.82 Long term (current) use of aspirin; Z79.891 Long term (current) use of opiate analgesic; Z79.899 Other long term (current) drug therapy

== ENCOUNTER → 2021-01-10 | Outpatient (REF) | payer MEDICARE, OTHER ==
[2021-01-10 18:09] LABS: MALB URINE SIEMENS 92.5 MG/L; MAU/CREAT RATIO 66.5 MCG/MG (0.0-30.0)
== END ==
LOC: M LAB REF 17:14
PROVIDERS: ATTEND Nurse Practitioner Family
DX: E11.22 Type 2 diabetes mellitus with diabetic chronic kidney disease (principal)

== ENCOUNTER 2021-05-22 14:19 | Emergency (ER) | payer MEDICARE, OTHER ==
[~2021-05-22] VITALS: Ht 182.9 cm; Wt 126.4 kg
[2021-05-22 16:08] LABS: BASO % 0.6 % (0.0-1.0); EOS # 0.2 10^3/uL (0.0-0.5); EOS % 3.1 % (0.0-3.0); HEMATOCRIT 41.2 % (42.0-52.0); HEMOGLOBIN 13.5 g/dl (13.5-17.5); LYMPH # 1.2 10^3/uL (1.5-5.0); LYMPH % 17.9 % (24.0-44.0); MEAN CORPUSCULAR HEMOGLOBIN 30.8 pg (27.0-33.0); MEAN CORPUSCULAR HGB CONC 32.8 g/dl (32.0-36.5); MEAN CORPUSCULAR VOLUME 93.8 fl (80.0-96.0); MONO # 0.6 10^3/uL (0.0-0.8); MONO % 8.1 % (2.0-8.0); NEUTROPHILS # 4.7 10^3/uL (1.5-8.5); PLATELET COUNT, AUTOMATED 224 10^3/uL (150-450); RED BLOOD COUNT 4.39 10^6/uL (4.30-6.10); WHITE BLOOD COUNT 6.8 10^3/uL (4.0-10.0)
[2021-05-22 16:11] LABS: CALCIUM LEVEL 8.6 MG/DL (8.8-10.2); CREATININE FOR GFR 2.08 MG/DL (0.70-1.30); MAGNESIUM LEVEL 2.2 MG/DL (1.8-2.4); MB/CK RELATIVE INDEX 3.53 (< OR =4); TROPONIN I 0.03 NG/ML (< 0.10)
--- NOTE | 2021-05-22 16:12 | REP ---
INDICATION: chest pain. COMPARISON: 03/25/2018. TECHNIQUE: Single portable AP view of the chest was performed. FINDINGS: There is no acute infiltrate or pulmonary edema. Lungs are clear. The heart is not significantly enlarged. The mediastinal silhouette is unremarkable. The visualized osseous structures are intact. IMPRESSION: No acute pulmonary disease. <Electronically signed by Hernesto Pendleton > 05/22/21 [id number]
[2021-05-22 17:06] VITALS: BP 158/84
[2021-05-22] MEDS ORDERED: CLOP75TA2 PO (18:04)
[2021-05-22] MEDS ORDERED: METO1TAB32 PO (18:04)
--- NOTE | 2021-05-22 20:19 | ECGEPIP ---
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
== END 2021-05-22 17:46 | disposition home or self-care (01) ==
LOC: M ED 14:19
DX: I20.9 Angina pectoris, unspecified (principal); I10 Essential (primary) hypertension; N18.30 Chronic kidney disease, stage 3 unspecified; E11.9 Type 2 diabetes mellitus without complications; E78.5 Hyperlipidemia, unspecified; F32.9 Major depressive disorder, single episode, unspecified; Z87.891 Personal history of nicotine dependence; Z79.84 Long term (current) use of oral hypoglycemic drugs; Z79.899 Other long term (current) drug therapy

== ENCOUNTER → 2021-05-25 | Outpatient (CLI) | payer MEDICARE, OTHER ==
[~2021-05-25] MED LIST changes: +CLOP75TA2 PO; +METO1TAB32 PO
--- NOTE | 2021-05-25 10:45 | REP ---
INDICATION: RENAL INSUFFICIENCY. COMPARISON: Comparison CT study is from August 09, 2020. TECHNIQUE: Urinary tract sonography. FINDINGS: Scanning at the level of the urinary bladder shows no abnormality. Renal cortical echogenicity pattern is slightly increased consistent with chronic medical renal disease. There is a 3.4 x 3.7 x 3.2 cm cyst in the upper pole the right kidney. A 2.7 x 3.4 x 1.8 cm cyst is seen in the lower pole of the left kidney. No hydronephrosis is seen on either side. No mass or calculus is appreciated. The right kidney measures 15.7 x 5.5 x 4.3 cm. Left renal dimensions are 16.1 x 5.0 x 6.9 cm. IMPRESSION: Bilateral cysts. Slightly increased renal cortical echogenicity. No hydronephrosis. <Electronically signed by Luis Wagner > 05/25/21 [id number]
== END ==
LOC: M RAD 09:56
PROVIDERS: ATTEND Internal Medicine Cardiovascular Disease
DX: N28.9 Disorder of kidney and ureter, unspecified (principal)
CPT/HCPCS: 76775; U0003

== ENCOUNTER → 2021-05-25 | Outpatient (CLI) | payer MEDICARE, OTHER | LOC: M LABSMTC 09:05 | PROVIDERS: ATTEND Internal Medicine Cardiovascular Disease | DX: Z11.52 Encounter for screening for COVID-19 (principal) ==

== ENCOUNTER → 2021-06-25 | Outpatient (CLI) | payer MEDICARE, OTHER | LOC: M LABSMTC 09:00 | PROVIDERS: ATTEND Thoracic Surgery (Cardiothoracic Vascular Surgery) | DX: Z11.52 Encounter for screening for COVID-19 (principal); I35.0 Nonrheumatic aortic (valve) stenosis; I25.10 Atherosclerotic heart disease of native coronary artery without angina pectoris | CPT/HCPCS: C9803; U0002 ==

== ENCOUNTER → 2021-07-09 | Outpatient (CLI) | payer MEDICARE, OTHER ==
[2021-07-09 09:56] LABS: INR 1.43; PROTHROMBIN TIME 17.9 SECONDS (12.7-14.5)
== END ==
LOC: M LAB 08:49
PROVIDERS: ATTEND Physician Assistant Surgical
DX: I25.10 Atherosclerotic heart disease of native coronary artery without angina pectoris (principal)

== ENCOUNTER → 2021-07-11 | Outpatient (CLI) | payer MEDICARE, OTHER ==
[2021-07-11 08:58] LABS: INR 1.48; PROTHROMBIN TIME 18.3 SECONDS (12.7-14.5)
== END ==
LOC: M LAB 07:53
PROVIDERS: ATTEND Physician Assistant Surgical
DX: I25.10 Atherosclerotic heart disease of native coronary artery without angina pectoris (principal)

== ENCOUNTER → 2021-08-01 | Outpatient (CLI) | payer MEDICARE, OTHER ==
[2021-08-01 10:17] LABS: HEMATOCRIT 42.2 % (42.0-52.0); HEMOGLOBIN 13.5 g/dl (13.5-17.5); MEAN CORPUSCULAR HEMOGLOBIN 30.3 pg (27.0-33.0); MEAN CORPUSCULAR VOLUME 94.6 fl (80.0-96.0); PLATELET COUNT, AUTOMATED 274 10^3/uL (150-450); RED BLOOD COUNT 4.46 10^6/uL (4.30-6.10); WHITE BLOOD COUNT 8.2 10^3/uL (4.0-10.0)
[2021-08-01 10:52] LABS: CALCIUM LEVEL 9.3 MG/DL (8.8-10.2); CHOLESTEROL RISK RATIO 2.47 (<5); CREATININE FOR GFR 1.87 MG/DL (0.70-1.30); GLOMERULAR FILTRATION RATE 38.3 (>49); POTASSIUM SERUM 5.3 MEQ/L (3.5-5.1)
== END ==
LOC: M LAB 09:19
PROVIDERS: ATTEND Internal Medicine Cardiovascular Disease
DX: I25.10 Atherosclerotic heart disease of native coronary artery without angina pectoris (principal)

== ENCOUNTER → 2021-10-15 | Outpatient (CLI) | payer MEDICARE, OTHER | LOC: M RAD 10:55 | PROVIDERS: ATTEND Internal Medicine Nephrology | DX: N18.32 Chronic kidney disease, stage 3b (principal) ==

== ENCOUNTER → 2021-10-19 | Outpatient (CLI) | payer MEDICARE, OTHER ==
[~2021-10-19] MED LIST changes: +ISOVUE-370 76% 100ML VIAL As Ordered ONE
== END ==
LOC: M RAD 11:30
PROVIDERS: ATTEND Surgery Vascular Surgery
DX: I65.23 Occlusion and stenosis of bilateral carotid arteries (principal)
CPT/HCPCS: 70496; 70498; Q9967

== ENCOUNTER → 2022-02-14 | Outpatient (CLI) | payer MEDICARE, OTHER ==
[~2022-02-14] MED LIST changes: -ISOVUE-370 76% 100ML VIAL As Ordered ONE
[2022-02-14 10:27] LABS: BASO # 0.1 10^3/uL (0.0-0.2); BASO % 0.3 % (0.0-1.0); EOS % 0.2 % (0.0-3.0); HEMATOCRIT 45.3 % (42.0-52.0); HEMOGLOBIN 14.6 g/dl (13.5-17.5); LYMPH # 0.9 10^3/uL (1.5-5.0); LYMPH % 4.8 % (24.0-44.0); MEAN CORPUSCULAR HEMOGLOBIN 29.9 pg (27.0-33.0); MEAN CORPUSCULAR HGB CONC 32.2 g/dl (32.0-36.5); MEAN CORPUSCULAR VOLUME 92.8 fl (80.0-96.0); MONO # 1.2 10^3/uL (0.0-0.8); MONO % 6.2 % (2.0-8.0); NEUTROPHILS # 16.4 10^3/uL (1.5-8.5); PLATELET COUNT, AUTOMATED 220 10^3/uL (150-450); RED BLOOD COUNT 4.88 10^6/uL (4.30-6.10); WHITE BLOOD COUNT 18.7 10^3/uL (4.0-10.0)
[2022-02-14 10:52] LABS: ALBUMIN 3.5 GM/DL (3.2-5.2); BILIRUBIN,TOTAL 1.1 MG/DL (0.2-1.0); CALCIUM LEVEL 8.5 MG/DL (8.8-10.2); CREATININE FOR GFR 2.79 MG/DL (0.70-1.30); GLOMERULAR FILTRATION RATE 24.1 (>49); POTASSIUM SERUM 4.8 MEQ/L (3.5-5.1); TOTAL PROTEIN 7.3 GM/DL (6.4-8.2)
== END ==
LOC: M WUC 08:58
PROVIDERS: ATTEND Physician Assistant
DX: R50.9 Fever, unspecified (principal); R31.9 Hematuria, unspecified

== ENCOUNTER → 2022-07-23 | Outpatient (CLI) | payer MEDICARE, OTHER ==
[~2022-07-23] MED LIST changes: +LEVO1TAB40 PO; -LEVO750T13 PO
[2022-07-23 11:12] LABS: BASO % 0.7 % (0.0-1.0); EOS # 0.2 10^3/uL (0.0-0.5); EOS % 3.2 % (0.0-3.0); HEMATOCRIT 45.4 % (42.0-52.0); HEMOGLOBIN 14.6 g/dl (13.5-17.5); LYMPH # 0.8 10^3/uL (1.5-5.0); LYMPH % 12.8 % (24.0-44.0); MEAN CORPUSCULAR HEMOGLOBIN 30.7 pg (27.0-33.0); MEAN CORPUSCULAR HGB CONC 32.2 g/dl (32.0-36.5); MEAN CORPUSCULAR VOLUME 95.6 fl (80.0-96.0); MONO # 0.7 10^3/uL (0.0-0.8); MONO % 11.4 % (2.0-8.0); NEUTROPHILS # 4.3 10^3/uL (1.5-8.5); NEUTROPHILS % 71.4 % (36.0-66.0); PLATELET COUNT, AUTOMATED 197 10^3/uL (150-450); RED BLOOD COUNT 4.75 10^6/uL (4.30-6.10)
[2022-07-23 11:49] LABS: ALBUMIN 4.3 G/DL (3.2-5.2); ALT/SGPT 43 U/L (7.0-40); BLOOD UREA NITROGEN 47 MG/DL (9-23); CALCIUM LEVEL 8.6 MG/DL (8.3-10.6); CARBON DIOXIDE LEVEL 26 MMOL/L (20-31); CHLORIDE LEVEL 104 MMOL/L (98-107); CREATININE FOR GFR 1.95 MG/DL (0.70-1.30); ERYTHROCYTE SEDIMENTATION RATE 4 mm/hr (0-20); FOLATE > 24.0 NG/ML (>5.4); FREE T4 0.91 NG/DL (0.89-1.76); GLOMERULAR FILTRATION RATE 36.4 (>42); GLUCOSE, FASTING 104 MG/DL (74-106); SODIUM LEVEL 139 MMOL/L (136-145); THYROID STIMULATING HORMONE 3.721 uIU/ML (0.55-4.78); TOTAL PROTEIN 7.1 G/DL (5.7-8.2); VITAMIN B12 LEVEL 658 PG/ML (211-911)
== END ==
LOC: M LAB 09:42
PROVIDERS: ATTEND Psychiatry & Neurology Neurology
DX: E07.9 Disorder of thyroid, unspecified (principal)

== ENCOUNTER → 2022-09-05 | Outpatient (CLI) | payer MEDICARE, OTHER ==
[~2022-09-05] MED LIST changes: +ACET-1349 PO; +ATOR80TA59 PO; +METO50TA7 PO
== END ==
LOC: M LABSMTC 09:45
PROVIDERS: ATTEND Anesthesiology
DX: Z01.818 Encounter for other preprocedural examination (principal); Z11.52 Encounter for screening for COVID-19

== ENCOUNTER 2022-09-10 07:35 | Day surgery (SDC) | payer MEDICARE, OTHER ==
[~2022-09-10] VITALS: Ht 182.9 cm; Wt 121.1 kg
[~2022-09-10 07:35] MED LIST changes: +BSS IRR 500ML/OMIDRIA 4ML IRR BAG (OR ONLY) As Ordered ONE; +CEFUROXIME 1MG/0.1ML INTRACAMERAL INJ As Ordered ONE; +CYCLOPENTOLATE 1% OPHTH SOLN 2ML BTL OS SCH; +OFLOXACIN 0.3 % (OCUFLOX) OPTH SOL 5ML OS SCH; +PHENYLEPHRINE 2.5% OPHTH SOL 2ML OS SCH; +PROPARACAINE 0.5% OPHTH SOL 15ML OS ONE; +TROPICAMIDE 1% OPHTH SOLN 15ML OS SCH
[2022-09-10] MEDS ORDERED: INSULIN LISPRO (NovoLOG) PER UNIT SC PRN (08:45)
[2022-09-10] MEDS ORDERED: fentaNYL 100 MCG/2 ML INJECTION As Ordered ONE (09:40)
[2022-09-10] MEDS ORDERED: MIDAZOLAM INJ 2MG/2ML VIAL As Ordered ONE (09:51)
[2022-09-10 10:33] VITALS: BP 164/78
== END 2022-09-10 10:58 | disposition home or self-care (01) ==
LOC: M SDC 07:35
PROVIDERS: ATTEND Ophthalmology
DX: H25.12 Age-related nuclear cataract, left eye (principal); I25.10 Atherosclerotic heart disease of native coronary artery without angina pectoris; E11.9 Type 2 diabetes mellitus without complications; I12.9 Hypertensive chronic kidney disease with stage 1 through stage 4 chronic kidney disease, or unspecified chronic kidney disease; N18.4 Chronic kidney disease, stage 4 (severe); Z87.891 Personal history of nicotine dependence; Z79.51 Long term (current) use of inhaled steroids; E78.5 Hyperlipidemia, unspecified; F41.9 Anxiety disorder, unspecified; Z79.899 Other long term (current) drug therapy; Z79.4 Long term (current) use of insulin
CPT/HCPCS: 66984; J1097; V2632

== ENCOUNTER → 2023-05-16 | Outpatient (CLI) | payer MEDICARE, OTHER ==
[~2023-05-16] MED LIST changes: -BSS IRR 500ML/OMIDRIA 4ML IRR BAG (OR ONLY) As Ordered ONE; -CEFUROXIME 1MG/0.1ML INTRACAMERAL INJ As Ordered ONE; -CYCLOPENTOLATE 1% OPHTH SOLN 2ML BTL OS SCH; -OFLOXACIN 0.3 % (OCUFLOX) OPTH SOL 5ML OS SCH; -PHENYLEPHRINE 2.5% OPHTH SOL 2ML OS SCH; -PROPARACAINE 0.5% OPHTH SOL 15ML OS ONE; -TROPICAMIDE 1% OPHTH SOLN 15ML OS SCH
== END ==
LOC: M RAD 13:12
PROVIDERS: ATTEND Physician Assistant
DX: I65.23 Occlusion and stenosis of bilateral carotid arteries (principal)

== ENCOUNTER → 2023-06-12 | Outpatient (CLI) | payer MEDICARE, OTHER ==
[2023-06-12 09:33] LABS: CALCIUM LEVEL 8.7 MG/DL (8.3-10.6); CREATININE FOR GFR 1.48 MG/DL (0.70-1.30); POTASSIUM SERUM 4.3 MMOL/L (3.5-5.1)
== END ==
LOC: M LAB 08:19
PROVIDERS: ATTEND Physician Assistant
DX: I48.91 Unspecified atrial fibrillation (principal)

== ENCOUNTER → 2023-06-25 | Outpatient (CLI) | payer MEDICARE, OTHER ==
[~2023-06-25] MED LIST changes: +ISOVUE-370 76% 100ML VIAL ONE
== END ==
LOC: M PLAIMG 13:25
PROVIDERS: ATTEND Physician Assistant
DX: I73.9 Peripheral vascular disease, unspecified (principal)
CPT/HCPCS: 70496; 70498; Q9967

== ENCOUNTER 2024-03-25 09:13 | Emergency (ER) | payer MEDICARE, OTHER ==
[~2024-03-25] VITALS: Ht 182.9 cm; Wt 121.3 kg
[~2024-03-25 09:13] MED LIST changes: -ISOVUE-370 76% 100ML VIAL ONE
[2024-03-25 09:14] VITALS: BP 133/72; TEMP 97.8; O2SAT 97
== END 2024-03-25 10:50 | disposition left against medical advice (07) ==
LOC: M ED 09:13
DX: Z53.21 Procedure and treatment not carried out due to patient leaving prior to being seen by health care provider (principal)

== ENCOUNTER 2024-06-24 09:17 | Emergency (ER) | payer MEDICARE, OTHER ==
[~2024-06-24] VITALS: Ht 182.9 cm; Wt 117.3 kg
[~2024-06-24 09:17] MED LIST changes: +GLIP10TA15 PO; -GLIP10TA6 PO
[2024-06-24 09:38] VITALS: TEMP 97.9
[2024-06-24 11:14] VITALS: BP 118/66; O2SAT 97
[2024-06-24] MEDS ORDERED: ELIQ5TAB PO (12:17)
[2024-06-24] MEDS: APIXABAN 5 MG TAB (ELIQUIS) PO ONE (12:24)
== END 2024-06-24 12:39 | disposition home or self-care (01) ==
LOC: M ED 09:17
DX: I82.451 Acute embolism and thrombosis of right peroneal vein (principal); M79.604 Pain in right leg; Z79.1 Long term (current) use of non-steroidal anti-inflammatories (NSAID); Z79.01 Long term (current) use of anticoagulants; Z79.4 Long term (current) use of insulin; Z79.899 Other long term (current) drug therapy

== ENCOUNTER → 2024-08-02 | Outpatient (REF) | payer MEDICARE, OTHER ==
[~2024-08-02] MED LIST changes: +ELIQ5TAB PO
[2024-08-02 19:50] LABS: BASO # 0.1 10^3/uL (0.0-0.2); BASO % 0.7 % (0.0-1.0); EOS # 0.4 10^3/uL (0.0-0.5); EOS % 4.6 % (0.0-3.0); HEMATOCRIT 37.3 % (42.0-52.0); HEMOGLOBIN 11.9 g/dl (13.5-17.5); LYMPH # 1.1 10^3/uL (1.5-5.0); LYMPH % 12.7 % (24.0-44.0); MEAN CORPUSCULAR HEMOGLOBIN 30.1 pg (27.0-33.0); MEAN CORPUSCULAR HGB CONC 31.9 g/dl (32.0-36.5); MEAN CORPUSCULAR VOLUME 94.4 fl (80.0-96.0); MONO # 0.6 10^3/uL (0.0-0.8); MONO % 6.5 % (2.0-8.0); NEUTROPHILS # 6.4 10^3/uL (1.5-8.5); NEUTROPHILS % 75.1 % (36.0-66.0); PLATELET COUNT, AUTOMATED 324 10^3/uL (150-450); RED BLOOD COUNT 3.95 10^6/uL (4.30-6.10); WHITE BLOOD COUNT 8.6 10^3/uL (4.0-10.0)
[2024-08-02 19:55] LABS: ERYTHROCYTE SEDIMENTATION RATE 46 mm/hr (0-20)
[2024-08-02 20:02] LABS: C REACTIVE PROTEIN QUANTITATIV < 0.40 MG/DL (<1.0)
[2024-08-02 20:04] LABS: ALBUMIN 3.2 G/DL (3.2-5.2); ALKALINE PHOSPHATASE 74 U/L (40-129); ALT/SGPT 28 U/L (7.0-40); AST/SGOT 19 U/L (<34); BILIRUBIN,TOTAL 0.4 MG/DL (0.3-1.2); BLOOD UREA NITROGEN 21 MG/DL (9-23); CALCIUM LEVEL 8.6 MG/DL (8.3-10.6); CARBON DIOXIDE LEVEL 27 MMOL/L (20-31); CHLORIDE LEVEL 105 MMOL/L (98-107); CREATININE FOR GFR 1.64 MG/DL (0.70-1.30); GLOMERULAR FILTRATION RATE 44.2 (>42); GLUCOSE, FASTING 234 MG/DL (74-106); POTASSIUM SERUM 4.4 MMOL/L (3.5-5.1); SODIUM LEVEL 140 MMOL/L (136-145); TOTAL PROTEIN 6.5 G/DL (5.7-8.2)
== END ==
LOC: M LAB REF 17:09
PROVIDERS: ATTEND Internal Medicine
DX: M86.172 Other acute osteomyelitis, left ankle and foot (principal)

== ENCOUNTER → 2024-08-09 | Outpatient (REF) | payer MEDICARE, OTHER ==
[2024-08-09 15:01] LABS: BASO # 0.1 10^3/uL (0.0-0.2); BASO % 0.6 % (0.0-1.0); EOS # 0.5 10^3/uL (0.0-0.5); HEMATOCRIT 37.8 % (42.0-52.0); LYMPH % 12.4 % (24.0-44.0); MEAN CORPUSCULAR HEMOGLOBIN 29.6 pg (27.0-33.0); MEAN CORPUSCULAR HGB CONC 31.7 g/dl (32.0-36.5); MEAN CORPUSCULAR VOLUME 93.1 fl (80.0-96.0); MONO # 0.7 10^3/uL (0.0-0.8); MONO % 8.5 % (2.0-8.0); NEUTROPHILS # 5.5 10^3/uL (1.5-8.5); NEUTROPHILS % 71.4 % (36.0-66.0); PLATELET COUNT, AUTOMATED 270 10^3/uL (150-450); RED BLOOD COUNT 4.06 10^6/uL (4.30-6.10); WHITE BLOOD COUNT 7.8 10^3/uL (4.0-10.0)
[2024-08-09 15:12] LABS: ERYTHROCYTE SEDIMENTATION RATE 43 mm/hr (0-20)
[2024-08-09 15:25] LABS: ALBUMIN 3.2 G/DL (3.2-5.2); ALKALINE PHOSPHATASE 72 U/L (40-129); ALT/SGPT 25 U/L (7.0-40); AST/SGOT 21 U/L (<34); BILIRUBIN,TOTAL 0.6 MG/DL (0.3-1.2); BLOOD UREA NITROGEN 31 MG/DL (9-23); C REACTIVE PROTEIN QUANTITATIV < 0.50 MG/DL (<1.0); CALCIUM LEVEL 8.9 MG/DL (8.3-10.6); CARBON DIOXIDE LEVEL 28 MMOL/L (20-31); CHLORIDE LEVEL 104 MMOL/L (98-107); CREATININE FOR GFR 2.12 MG/DL (0.70-1.30); GLOMERULAR FILTRATION RATE 32.9 (>42); GLUCOSE, FASTING 120 MG/DL (74-106); POTASSIUM SERUM 4.4 MMOL/L (3.5-5.1); SODIUM LEVEL 139 MMOL/L (136-145); TOTAL PROTEIN 6.9 G/DL (5.7-8.2)
== END ==
LOC: M LAB REF 14:09
PROVIDERS: ATTEND Internal Medicine
DX: M86.171 Other acute osteomyelitis, right ankle and foot (principal)

== ENCOUNTER → 2024-08-16 | Outpatient (REF) | payer MEDICARE, OTHER ==
[2024-08-16 15:04] LABS: BASO # 0.1 10^3/uL (0.0-0.2); BASO % 0.7 % (0.0-1.0); EOS # 0.5 10^3/uL (0.0-0.5); EOS % 5.4 % (0.0-3.0); HEMATOCRIT 40.4 % (42.0-52.0); LYMPH # 1.2 10^3/uL (1.5-5.0); LYMPH % 14.9 % (24.0-44.0); MEAN CORPUSCULAR HEMOGLOBIN 29.6 pg (27.0-33.0); MEAN CORPUSCULAR HGB CONC 32.2 g/dl (32.0-36.5); MONO # 0.7 10^3/uL (0.0-0.8); MONO % 7.8 % (2.0-8.0); NEUTROPHILS # 5.9 10^3/uL (1.5-8.5); NEUTROPHILS % 70.8 % (36.0-66.0); PLATELET COUNT, AUTOMATED 272 10^3/uL (150-450); RED BLOOD COUNT 4.39 10^6/uL (4.30-6.10); WHITE BLOOD COUNT 8.3 10^3/uL (4.0-10.0)
[2024-08-16 15:06] LABS: C REACTIVE PROTEIN QUANTITATIV < 0.50 MG/DL (<1.0)
[2024-08-16 15:08] LABS: ALBUMIN 3.6 G/DL (3.2-5.2); ALKALINE PHOSPHATASE 76 U/L (40-129); ALT/SGPT 38 U/L (7.0-40); AST/SGOT 34 U/L (<34); BILIRUBIN,TOTAL 0.6 MG/DL (0.3-1.2); BLOOD UREA NITROGEN 27 MG/DL (9-23); CALCIUM LEVEL 9.4 MG/DL (8.3-10.6); CARBON DIOXIDE LEVEL 28 MMOL/L (20-31); CHLORIDE LEVEL 104 MMOL/L (98-107); CREATININE FOR GFR 1.76 MG/DL (0.70-1.30); GLOMERULAR FILTRATION RATE 40.7 (>42); GLUCOSE, FASTING 91 MG/DL (74-106); POTASSIUM SERUM 4.4 MMOL/L (3.5-5.1); SODIUM LEVEL 141 MMOL/L (136-145); TOTAL PROTEIN 6.9 G/DL (5.7-8.2)
[2024-08-16 15:18] LABS: ERYTHROCYTE SEDIMENTATION RATE 42 mm/hr (0-20)
== END ==
LOC: M LAB REF 14:31
PROVIDERS: ATTEND Internal Medicine
DX: M86.171 Other acute osteomyelitis, right ankle and foot (principal)

== ENCOUNTER → 2024-08-23 | Outpatient (REF) | payer MEDICARE, OTHER ==
[2024-08-23 12:04] LABS: BASO # 0.1 10^3/uL (0.0-0.2); BASO % 0.7 % (0.0-1.0); EOS # 0.4 10^3/uL (0.0-0.5); EOS % 5.1 % (0.0-3.0); HEMOGLOBIN 13.1 g/dl (13.5-17.5); LYMPH # 1.1 10^3/uL (1.5-5.0); LYMPH % 13.2 % (24.0-44.0); MEAN CORPUSCULAR HEMOGLOBIN 29.8 pg (27.0-33.0); MEAN CORPUSCULAR VOLUME 93.4 fl (80.0-96.0); MONO # 0.6 10^3/uL (0.0-0.8); MONO % 7.7 % (2.0-8.0); NEUTROPHILS # 5.9 10^3/uL (1.5-8.5); NEUTROPHILS % 72.9 % (36.0-66.0); PLATELET COUNT, AUTOMATED 232 10^3/uL (150-450); RED BLOOD COUNT 4.39 10^6/uL (4.30-6.10); WHITE BLOOD COUNT 8.1 10^3/uL (4.0-10.0)
[2024-08-23 12:20] LABS: ERYTHROCYTE SEDIMENTATION RATE 21 mm/hr (0-20)
[2024-08-23 12:32] LABS: ALBUMIN 3.5 G/DL (3.2-5.2); ALKALINE PHOSPHATASE 80 U/L (40-129); ALT/SGPT 50 U/L (7.0-40); AST/SGOT 36 U/L (<34); BILIRUBIN,TOTAL 0.4 MG/DL (0.3-1.2); BLOOD UREA NITROGEN 28 MG/DL (9-23); C REACTIVE PROTEIN QUANTITATIV < 0.50 MG/DL (<1.0); CALCIUM LEVEL 9.1 MG/DL (8.3-10.6); CARBON DIOXIDE LEVEL 28 MMOL/L (20-31); CHLORIDE LEVEL 104 MMOL/L (98-107); CREATININE FOR GFR 1.71 MG/DL (0.70-1.30); GLOMERULAR FILTRATION RATE 42.1 (>42); GLUCOSE, FASTING 137 MG/DL (74-106); POTASSIUM SERUM 4.6 MMOL/L (3.5-5.1); SODIUM LEVEL 139 MMOL/L (136-145); TOTAL PROTEIN 6.8 G/DL (5.7-8.2)
== END ==
LOC: M LAB REF 11:36
PROVIDERS: ATTEND Internal Medicine
DX: M86.171 Other acute osteomyelitis, right ankle and foot (principal); E11.69 Type 2 diabetes mellitus with other specified complication; N18.9 Chronic kidney disease, unspecified

== ENCOUNTER → 2024-08-30 | Outpatient (REF) | payer OTHER, MEDICARE ==
[2024-08-30 12:37] LABS: BASO # 0.1 10^3/uL (0.0-0.2); BASO % 0.8 % (0.0-1.0); EOS # 0.3 10^3/uL (0.0-0.5); HEMATOCRIT 41.5 % (42.0-52.0); HEMOGLOBIN 13.3 g/dl (13.5-17.5); MEAN CORPUSCULAR HEMOGLOBIN 29.6 pg (27.0-33.0); MEAN CORPUSCULAR VOLUME 92.4 fl (80.0-96.0); MONO # 0.5 10^3/uL (0.0-0.8); MONO % 7.7 % (2.0-8.0); NEUTROPHILS # 4.7 10^3/uL (1.5-8.5); NEUTROPHILS % 71.2 % (36.0-66.0); PLATELET COUNT, AUTOMATED 224 10^3/uL (150-450); RED BLOOD COUNT 4.49 10^6/uL (4.30-6.10); WHITE BLOOD COUNT 6.6 10^3/uL (4.0-10.0)
[2024-08-30 12:43] LABS: ERYTHROCYTE SEDIMENTATION RATE 16 mm/hr (0-20)
[2024-08-30 13:00] LABS: ALBUMIN 3.7 G/DL (3.2-5.2); ALKALINE PHOSPHATASE 77 U/L (40-129); ALT/SGPT 56 U/L (7.0-40); AST/SGOT 39 U/L (<34); BILIRUBIN,TOTAL 0.4 MG/DL (0.3-1.2); BLOOD UREA NITROGEN 31 MG/DL (9-23); C REACTIVE PROTEIN QUANTITATIV < 0.50 MG/DL (<1.0); CARBON DIOXIDE LEVEL 27 MMOL/L (20-31); CHLORIDE LEVEL 104 MMOL/L (98-107); CREATININE FOR GFR 1.72 MG/DL (0.70-1.30); GLOMERULAR FILTRATION RATE 41.8 (>42); GLUCOSE, FASTING 183 MG/DL (74-106); POTASSIUM SERUM 4.2 MMOL/L (3.5-5.1); SODIUM LEVEL 140 MMOL/L (136-145); TOTAL PROTEIN 6.6 G/DL (5.7-8.2)
== END ==
LOC: M LAB REF 11:42
PROVIDERS: ATTEND Internal Medicine
DX: M86.171 Other acute osteomyelitis, right ankle and foot (principal)

== ENCOUNTER → 2024-12-20 | Outpatient (CLI) | payer OTHER, MEDICARE ==
[2024-12-20 12:13] LABS: CALCIUM LEVEL 9.1 MG/DL (8.3-10.6); CREATININE FOR GFR 1.8 MG/DL (0.70-1.30); GLOMERULAR FILTRATION RATE 39.5 (>42); POTASSIUM SERUM 4.7 MMOL/L (3.5-5.1)
== END ==
LOC: M LAB 11:01
PROVIDERS: ATTEND Nurse Practitioner Family
DX: E11.22 Type 2 diabetes mellitus with diabetic chronic kidney disease (principal)